=== PATIENT | male | born 1950 | race Caucasian/White ===

== ENCOUNTER 2020-12-08 08:43 | Outpatient (CLI) | payer MEDICARE, OTHER, SELFPAY | END 2020-12-08 08:44 | disposition home or self-care (01) | LOC: ANHCOVIDVC 08:43 | PROVIDERS: PCP Internal Medicine | DX: Z23 Encounter for immunization (principal) | CPT/HCPCS: 0001A; 91300 ==

== ENCOUNTER 2020-12-29 08:40 | Outpatient (CLI) | payer MEDICARE, OTHER, SELFPAY | END 2020-12-29 08:41 | disposition home or self-care (01) | LOC: ANHCOVIDVC 08:40 | PROVIDERS: PCP Internal Medicine | DX: Z23 Encounter for immunization (principal) | CPT/HCPCS: 0002A; 91300 ==

== ENCOUNTER 2021-05-14 13:12 | Outpatient (CLI) | payer MEDICARE, OTHER, SELFPAY ==
--- NOTE | ~2021-05-14 | CT_ITS ---
EXAMINATION: CT soft tissue neck w con EXAM DATE: 05/14/2021 14:00 INDICATION: K11.20 - Sialoadenitis, unspecified. TECHNIQUE: Spiral CT of the neck was performed following intravenous injection of 75 mL Omnipaque 350 . Axial, coronal and sagittal images were reviewed. The dose-length product (DLP) for this examinat ion was 566.91 mGy-cm. The exposure was tailored according to patient size (auto mA exposure control ), and iterative reconstruction (ASIR) was used as additional dose reduction technique. There is no prior study for comparison. FINDINGS: Ill-defined infiltrative appearing left parotid mass measuring about 3 x 4 cm expanding the size of the left parotid superficial lobe. There are regions of cavitation or pathological intraparo tid lymph nodes as well. 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 Mass does extend t o the skull base, can't exclude perineural spread along the facial nerve. There are pathologically enlarged left-sided level 2 and 3 lymph nodes which are centrally necrotic, largest measuring 3.0 x 1.7 cm. There is left submandibular pathological lymph node measuring 1.8 x 1 .3 cm. There is left internal jugular chain lymph node at level of thyroid cartilage measuring 1.1 x 1.4 cm. The thyroid gland is unremarkable. The superior mediastinum is unremarkable. The airway is unrem arkable. Parapharyngeal and pre-glottic fat planes are preserved. There is moderate bilateral car otid bulb arterial sclerosis without stenosis. Patient has had left-sided ocular lens surgery. Vi sualized sinuses and mastoid air cells are well aerated. Lung apices are clear. There is cervical spondylosis. IMPRESSION: Left parotid infiltrating mass and associated internal jugular chain, submandibular meta static lymphadenopathy. Consider MR internal auditory canal without and with contrast to evaluate po ssibility of perineural spread. I left a message for Dr. Alex Law MD at 05/15/2021 11:03 CDT, spoke with Amaris in his office, no tified of findings and requested for him to review this report and images. Reviewed, dictated and finalized at location B. IMPRESSION: Left parotid infiltrating mass and associated internal jugular toña in, submandibular metastatic lymphadenopathy. Consider MR internal auditory ca nal without and with contrast to evaluate possibility of perineural spread. I left a message for Dr. Alex Law MD at 05/15/2021 11:03 CDT, spoke with Elvin vines in his office, notified of findings and requested for him to review this r eport and images.
[2021-05-14 13:49] LABS: Estimated Glomerular Filt Rate > 60
== END 2021-05-14 13:13 | disposition home or self-care (01) ==
PROVIDERS: PCP Internal Medicine; Visit Provider Otolaryngology
DX: R22.1 Localized swelling, mass and lump, neck (principal); K11.20 Sialoadenitis, unspecified
CPT/HCPCS: 70491; Q9967

== ENCOUNTER 2021-06-03 08:24 | Outpatient (CLI) | payer MEDICARE, OTHER, SELFPAY ==
--- NOTE | ~2021-06-03 | US_ITS ---
EXAMINATION: US FNA w image guidance DATE: 06/03/2021 09:38 INDICATION: Left parotid mass. TECHNIQUE: The procedure and its benefits and risks were discussed with the patient. Risks specifically discusse d included bleeding. The patient verbalized understanding of the risks and agreed to proceed. The nec k was prepped and draped in the usual sterile manner. 1% lidocaine was used for local anesthesia. 8 passes were made with a 25G needle into the lesion under ultrasound guidance. There were no immedia te complications. FINDINGS: Grayscale ultrasound images demonstrate needles advanced into an ill-defined mass in left parotid gla nd for biopsy. IMPRESSION: 1. Ultrasound-guided fine needle aspiration of an ill-defined mass in left parotid gland. Reviewed, dictated and finalized at location A. IMPRESSION: 1. Ultrasound-guided fine needle aspiration of an ill-defined mass in left par otid gland.
== END 2021-06-03 08:25 | disposition home or self-care (01) ==
LOC: ANHIMG 08:28
PROVIDERS: PCP Internal Medicine; Visit Provider Otolaryngology
DX: R22.1 Localized swelling, mass and lump, neck (principal)
CPT/HCPCS: 10005; 88173; 88305

== ENCOUNTER 2021-09-22 08:10 | Outpatient (CLI) | payer MEDICARE, OTHER, SELFPAY ==
[2021-09-22 08:37] LABS: Basophils Percent Auto 0.7 % (0.2-1.2); Eosinophils Absolute Auto 0.2 K/mm3 (0-0.3); Hematocrit 47.4 % (42.0-52.0); Hemoglobin 14.5 g/dL (14.0-18.0); Immature Granulocyte Absolute 0.07 K/mm3 (0.00-0.031); Immature Granulocyte Percent A 1.2 % (0-0.5); Lymphocytes Percent Auto 36.2 % (18.3-44.2); Mean Corpuscular HGB Conc 30.6 g/dl (32-36); Mean Corpuscular Hemoglobin 27.6 pg (26-34); Mean Corpuscular Volume 90.3 fl (80-100); Mean Platelet Volume 10.6 fl (7.4-10.4); Monocytes Absolute Auto 0.5 K/mm3 (0.1-0.6); Monocytes Percent Auto 8.6 % (2.6-8.5); Neutrophils Absolute Auto 3.1 K/mm3 (1.3-6.7); Neutrophils Percent Auto 50.3 % (45.5-73.1); Platelet Count Result 177 k/mm3 (150-375); Red Blood Count 5.25 M/mm3 (4.6-6.20); Red Cell Distribution Width 15.5 % (11.5-14.5); White Blood Count 6.1 K/mm3 (4.5-10.0)
[2021-09-22 08:43] LABS: Blood Urea Nitrogen 21 mg/dL (8-26); Carbon Dioxide 25 mmol/L (22-30); Chloride 105 mmol/L (98-109); Estimated Glomerular Filt Rate > 60; Glucose 171 mg/dL (70-105); Potassium 4.6 mmol/L (3.5-4.9); Sodium 143 mmol/L (138-146)
[2021-09-22 09:59] LABS: Alanine Aminotransferase 34 U/L (4-50); Albumin Level 4.3 g/dL (3.5-5.1); Alkaline Phosphatase 81 U/L (38-126); Anion Gap 11 mmol/L (8-16); Aspartate Amino Transferase 60 U/L (17-59); Bilirubin,Total 0.8 mg/dL (0.2-1.3); Blood Urea Nitrogen 20 mg/dL (9-20); Calcium 8.9 mg/dL (8.4-10.2); Carbon Dioxide 24 mmol/L (22-30); Chloride 106 mmol/L (98-107); Estimated Glomerular Filt Rate > 60; Glucose 176 mg/dL (65-110); Potassium 4.7 mmol/L (3.4-5.0); Sodium 141 mmol/L (137-145)
== END 2021-09-22 08:11 | disposition home or self-care (01) ==
PROVIDERS: PCP Internal Medicine; Visit Provider Internal Medicine Hematology & Oncology
DX: D68.69 Other thrombophilia (principal)
CPT/HCPCS: 36415; 80053; 85025

== ENCOUNTER 2022-03-23 10:53 | Outpatient (CLI) | payer MEDICARE, OTHER, SELFPAY ==
[2022-03-23 11:06] LABS: Basophils Absolute Auto 0.1 K/mm3 (0.0-0.1); Eosinophils Absolute Auto 0.2 K/mm3 (0-0.3); Eosinophils Percent Auto 2.4 % (0-4.4); Hematocrit 47.6 % (42.0-52.0); Hemoglobin 15.1 g/dL (14.0-18.0); Immature Granulocyte Absolute 0.11 K/mm3 (0.00-0.031); Immature Granulocyte Percent A 1.5 % (0-0.5); Lymphocytes Absolute Auto 3.16 K/mm3 (0.9-3.2); Lymphocytes Percent Auto 44.2 % (18.3-44.2); Mean Corpuscular HGB Conc 31.7 g/dl (32-36); Mean Corpuscular Hemoglobin 27.2 pg (26-34); Mean Corpuscular Volume 85.6 fl (80-100); Mean Platelet Volume 10.3 fl (7.4-10.4); Monocytes Absolute Auto 0.6 K/mm3 (0.1-0.6); Monocytes Percent Auto 8.1 % (2.6-8.5); Neutrophils Absolute Auto 3.1 K/mm3 (1.3-6.7); Neutrophils Percent Auto 42.8 % (45.5-73.1); Platelet Count Result 195 k/mm3 (150-375); Red Blood Count 5.56 M/mm3 (4.6-6.20); Red Cell Distribution Width 15.9 % (11.5-14.5); White Blood Count 7.2 K/mm3 (4.5-10.0)
[2022-03-23 11:10] LABS: Blood Urea Nitrogen 20 mg/dL (8-26); Carbon Dioxide 24 mmol/L (22-30); Chloride 102 mmol/L (98-109); Estimated Glomerular Filt Rate > 60; Glucose 229 mg/dL (70-105); Ionized Calcium (POC) 1.15 mmol/L (1.11-1.31); Potassium 4.8 mmol/L (3.5-4.9); Sodium 138 mmol/L (138-146)
[2022-03-23 14:36] LABS: Alanine Aminotransferase 35 U/L (6-50); Albumin Level 4.4 g/dL (3.5-5.1); Alkaline Phosphatase 101 U/L (38-126); Anion Gap 13 mmol/L (8-16); Aspartate Amino Transferase 56 U/L (17-59); Bilirubin,Total 1.2 mg/dL (0.2-1.3); Blood Urea Nitrogen 20 mg/dL (9-20); Calcium 8.9 mg/dL (8.4-10.2); Carbon Dioxide 25 mmol/L (22-30); Chloride 100 mmol/L (98-107); Estimated Glomerular Filt Rate > 60; Glucose 232 mg/dL (65-110); Potassium 4.9 mmol/L (3.4-5.0); Sodium 138 mmol/L (137-145)
== END 2022-03-23 10:54 | disposition home or self-care (01) ==
LOC: ANHLAB 10:55
PROVIDERS: PCP Internal Medicine; Visit Provider Internal Medicine Hematology & Oncology
DX: D68.69 Other thrombophilia (principal)
CPT/HCPCS: 36415; 80047; 80053; 85025

== ENCOUNTER 2022-03-29 06:41 | Outpatient (CLI) | payer MEDICARE, OTHER, SELFPAY ==
--- NOTE | ~2022-03-29 | CT_ITS ---
EXAMINATION: CT chest abdomen pelvis w con DATE: 03/29/2022 07:10 INDICATION: Abnormal weight loss TECHNIQUE: Computed tomography (CT) of the chest and abdomen and pelvis was performed with 100 CC Omn ipaque 350 intravenous contrast. Automated exposure control and iterative reconstruction technique we re employed. Exam dose: 1302.07 mGy-cm total exam DLP. COMPARISON: 03/05/2019 MRI MRCP 03/02/2019 right upper quadrant abdominal ultrasound examination 03/02/2019 CT abdomen pelvis 12/15/2018 CT pulmonary scan FINDINGS: CHEST CT: Mild emphysematous changes of the lungs. No pulmonary mass lesion or consolidation. Normal heart size. Prominent coronary artery calcifications. No pericardial or pleural effusion. There is aortic and great vessel calcification. No thoracic aortic aneurysm or dissection. No hilar or mediastinal mass lesion or lymphadenopathy. ABDOMEN CT: The gallbladder is distended. No gallbladder wall thickening or pericholecystic fluid or fat strandin g. No bile duct dilatation. There is pancreatic atrophy and chronic pancreatic duct prominence. No pancreatic mass lesion or calc ification is noted. Borderline splenomegaly. Normal morphology of the adrenal glands. Exophytic upper pole circumscribed left renal mass currently measures up to approximately 5 cm compar ed to 4.2 cm on 03/02/2019. This has attenuation of 48 Hounsfield units and is considered indeterminate . Solid neoplasm is not excluded. There is a smaller but similar higher density (78 Hounsfield units) exophytic mass at the upper pole the right kidney, increased in size from 17 mm on 03/02/2019 to 21 mm currently. Bilateral MR renal examination is recommended. There are numerous cysts of both kidneys. No urinary tract calculus or hydroureteronephrosis. The urinary bladder is unremarkable. Again noted is aortobiiliac endograft. No intraperitoneal or retroperitoneal or pelvic lymphadenopathy or mass lesion is noted otherwise. Normal appendix. Numerous diverticula of the colon; no CT evidence of diverticulitis. No bowel obstru ction or intraperitoneal free air. Bilateral fat-containing hernias, larger on the left. Prominent degenerative changes apophyseal joints of the lumbar spine with associated grade 1 anteroli sthesis at L4-5 and L5-S1. There is degenerative disc disease throughout the lumbar spine, particular ly at L2-3 with mild retrolisthesis, as well as L3-4, L4-5 and L5-S1. No suspicious osteolytic or osteoblastic lesions are noted. IMPRESSION: Bilateral indeterminate renal masses, mildly increased in size since 03/02/2019. Consider bilateral renal MRI examination Mild emphysema Prominent coronary atherosclerosis Borderline splenomegaly Numerous bilateral renal cysts Reticulosis of the colon; no evidence of diverticulitis or bowel obstruction Reviewed, dictated and finalized at Location A. Reviewed, dictated and finalized at location B. IMPRESSION: Bilateral indeterminate renal masses, mildly increased in size sin ce 03/02/2019. Consider bilateral renal MRI examination Mild emphysema Prominent coronary atherosclerosis Borderline splenomegaly Numerous bilateral renal cysts Reticulosis of the colon; no evidence of diverticulitis or bowel obstruction
== END 2022-03-29 06:42 | disposition home or self-care (01) ==
PROVIDERS: PCP Internal Medicine; Visit Provider Internal Medicine Hematology & Oncology
DX: R63.4 Abnormal weight loss (principal); N28.89 Other specified disorders of kidney and ureter; J43.9 Emphysema, unspecified; I25.10 Atherosclerotic heart disease of native coronary artery without angina pectoris; R16.1 Splenomegaly, not elsewhere classified; N28.1 Cyst of kidney, acquired
CPT/HCPCS: 71260; 74177; Q9967

== ENCOUNTER 2022-04-26 08:36 | Outpatient (CLI) | payer MEDICARE, OTHER, SELFPAY ==
--- NOTE | ~2022-04-26 | MR_ITS ---
EXAMINATION: MR abdomen wo/w con DATE: 04/26/2022 09:58 INDICATION: Bilateral kidney masses. TECHNIQUE: Magnetic resonance imaging (MRI) of the abdomen was performed without and with 19 mL Multi Kelly intravenous contrast. COMPARISON: CT abdomen and pelvis 01/27/2022, MRCP 03/05/19 FINDINGS: The liver, gallbladder, and spleen are normal. There is chronic dilatation of pancreatic duct and the pancreatic duct sidechains, consistent with chronic pancreatitis. The main pancreatic duct measures 6 mm in the head of the pancreas. The adrenal glands are normal. There are cysts and hemorrhagic cyst s in the kidneys measuring up to 5.4 cm on the left. There is a stent graft in abdominal aorta and th e common iliac arteries. There are no dilated loops of bowel. There are no pathologically enlarged ly mph nodes. There is no free intraperitoneal fluid. IMPRESSION: 1. Benign cysts in the kidneys. 2. Chronic pancreatitis. Reviewed, dictated and finalized at location A.
== END 2022-04-26 08:37 | disposition home or self-care (01) ==
PROVIDERS: PCP Internal Medicine; Visit Provider Internal Medicine Hematology & Oncology
DX: N28.1 Cyst of kidney, acquired (principal); K86.2 Cyst of pancreas
CPT/HCPCS: 74183; A9577

== ENCOUNTER 2022-08-20 09:31 | Inpatient (IN) | payer MEDICARE, OTHER, SELFPAY ==
[2022-08-20] VITALS (49 sets, daily range): BP systolic 78–125; BP diastolic 54–99; PULSE 95–156; RESP 11–25; TEMP 36.4–36.8; O2SAT 93–100; BMI 25.1
--- NOTE | ~2022-08-20 | XR_ITS ---
Left ankle Technique: AP, oblique, and lateral views were obtained. Clinical History: Wound, pain Findings: No acute fracture or dislocation is seen. Osseous alignment is anatomic. Probable minimal d egenerative change at the tibiotalar joint. Alignment at the ankle mortise is unremarkable. Soft tis sues are otherwise unremarkable. Impression: Minimal degenerative change of the tibiotalar joint. Reviewed, dictated and finalized at location . ASTRUCTURE ADMINISTRATOR Impression: Minimal degenerative change of the tibiotalar joint.
--- NOTE | ~2022-08-20 | XR_ITS ---
Lumbosacral Spine: AP and lateral views Clinical History: Pain Findings: No fracture identified. 8 mm anterolisthesis of L5 over S1 noted. 4 mm anterolisthesis of L 4 over L5 present. There are facet joint degenerative changes throughout the lumbar spine, worst at L 4-L5 and L5-S1. The sacroiliac joints are normally outlined. Aortic stent graft noted. Impression: 8 mm anterolisthesis of L5 over S1. 4 mm anterolisthesis of L4 over L5. Additional degenerative changes, as above. Reviewed, dictated and finalized at location M. LITIES SPECIALIST Impression: 8 mm anterolisthesis of L5 over S1. 4 mm anterolisthesis of L4 over L5. Additional degenerative changes, as above.
--- NOTE | ~2022-08-20 | US_ITS ---
EXAMINATION: US venous doppler UE DATE: 08/24/2022 13:26 INDICATION: Left upper extremity redness and swelling TECHNIQUE: Grayscale ultrasound images without and with compression and Doppler ultrasound images of the left upper extremity veins were obtained. COMPARISON: None. FINDINGS: There is thrombosis of the left cephalic vein. The left internal jugular vein, subclavian vein, axill eric vein, brachial veins, basilic vein, radial vein, and ulnar vein are patent. IMPRESSION: 1. Left cephalic vein thrombosis. These findings were discussed with RKIS Pinto in the ICU at 1330 h ours on 08/24/2022 . Reviewed, dictated and finalized at location L. MOLD MACHINE OPERATOR IMPRESSION: 1. Left cephalic vein thrombosis. These findings were discussed with Soni Pinto in the ICU at 1330 hours on 08/24/2022 .
--- NOTE | ~2022-08-20 | US_ITS ---
EXAMINATION: US venous doppler [facility] DATE: 08/20/2022 12:40 INDICATION: Left lower limb pain, swelling and erythema TECHNIQUE: Grayscale ultrasound images without and with compression and Doppler ultrasound images of the left lower extremity veins were obtained. COMPARISON: None. FINDINGS: Increase in the amount of noncompressible hypoechoic thrombus in the left popliteus vein which is ecc entric with smooth relatively echogenic margins or thrombus suggesting this represents residual chron ic thrombus. The previously thrombosed paired left posterior tibial and peroneal veins are now patent The visualized portions of left common femoral vein, profunda (deep) femoral vein, femoral vein and greater saphenous vein outflow remain patent. IMPRESSION: 1. Small amount of residual likely chronic deep venous thrombosis in the left posterior tibial vein with resolution of prior thrombus in the left posterior tibial and peroneal veins. Reviewed, dictated and finalized at location A. TRICIAN TECHNICIAN IMPRESSION: 1. Small amount of residual likely chronic deep venous thrombosis in the left posterior tibial vein with resolution of prior thrombus in the left posterior t ibial and peroneal veins.
--- NOTE | ~2022-08-20 | CT_ITS ---
EXAMINATION: CT LE LT w con DATE: 08/20/2022 12:19 INDICATION: Trauma from fall. Diabetic foot with ulcerations and erythema, warmth and swelling. TECHNIQUE: Computed tomography (CT) of the left lower leg, ankle and foot was performed with 100 mL O mnipaque-350 intravenous contrast. Automated exposure control and iterative reconstruction technique were employed. The dose-length product was 1048.31 mGy-cm. COMPARISON: Left ankle radiographs dated 08/20/2022 FINDINGS: Alignment is normal. No fracture. Small heterotopic ossicles at the medial malleolus along the deep a nd superficial deltoid ligament likely sequela of chronic sprain. Polyarticular osteoarthritis throug hout the left foot and ankle, mild to moderate at the tarsal metatarsal and first metatarsophalangeal joints and otherwise mild. No cortical erosions, osteolysis or periosteal reaction to suggest osteom yelitis. Small Achilles and plantar calcaneal spurs. There are vascular calcifications throughout the arteries of the left lower leg and foot without hemodynamically significant stenosis. Three-vessel r unoff into the left foot. No joint effusions. Asymmetric mild skin thickening and diffuse subcutaneou s edema throughout the left calf and extending into the left foot consistent with cellulitis. Shallow ulceration at the distal lower leg along the cephalad margin of the medial malleolus. No abscess or soft tissue gas. Mild diffuse fatty atrophy of the musculature of the left foot and lower leg. Relati vely symmetric pattern of soft tissue density replacing the fat attenuation at the bilateral heel fat pads without evident overlying skin ulcerations suggesting fibrosis. 11 mm homogeneous fat attenuati on lipoma within the intrinsic musculature of the lateral aspect of the left forefoot. IMPRESSION: 1. No fracture or other acute osseous abnormality at the left lower leg, foot or ankle. 2. Findings suggestive of diffuse cellulitis throughout the left lower leg and foot and ankle with sh allow skin ulceration cephalad to the medial malleolus without underlying soft tissue gas, abscess or osteomyelitis. 3. 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 Reviewed, dictated and finalized at location A. RAFT ENGINE CYLINDER MECHANIC IMPRESSION: 1. No fracture or other acute osseous abnormality at the left lower leg, foot o r ankle. 2. Findings suggestive of diffuse cellulitis throughout the left lower leg and foot and ankle with shallow skin ulceration cephalad to the medial malleolus wi thout underlying soft tissue gas, abscess or osteomyelitis. 3. Mild to moderate polyarticular osteoarthritis throughout the left foot and a nkle.
--- NOTE | ~2022-08-20 | XR_ITS ---
Clinical Indication: Weakness, status post fall AP and lateral views of the chest: Comparison: 11/08/2018 Findings: The lungs are clear, without evidence of focal consolidation or pleural effusion. Cardiome diastinal silhouette is within normal limits. Bones and soft tissues are unremarkable. Impression: Normal chest. Reviewed, dictated and finalized at [facility]. ENTER Impression: Normal chest.
--- NOTE | 2022-08-20 09:53 | ECG_ITS ---
Measurements Intervals [place] Rate: 151 P: [place]: 0 QRS: 31 QRSD: 92 T: 96 QT: 301 QTc: 477 Interpretive Statements ATRIAL FIBRILLATION WITH RAPID VENTRICULAR RESPONSE NONSPECIFIC ST & T-WAVE ABNORMALITY ABNORMAL ECG COMPARED TO ECG 03/02/2019 09:34:03 ATRIAL FIBRILLATION REPLACES ATRIAL FLUTTER Electronically Signed On 08-20-2022 19:59:53 TUTORIAL LABORATORY SUPERVISOR by Pepe Yan M.D.
[2022-08-20 10:00] LABS: Glucose Point of Care > 500 mg/dl (65-105)
--- NOTE | 2022-08-20 10:10 | ED.EXTPRO ---
HPI - Extremity Problem General Chief complaint: Extremity Problem,Nontraumatic <Tresa Ku PA-C - Last Filed: 08/20/22 15:05> Stated complaint: left foot problem <CHINA Nina Last Filed: 08/20/22 15:05> Time Seen by Provider: 08/20/22 09:53 <Tresa Ku PA-C - Last Filed: 08/20/22 15:05> Source: patient <CHINA Nina Last Filed: 08/20/22 15:05> Mode of arrival: ambulatory <CHINA Nina Last Filed: 08/20/22 15:05> Limitations: no limitations <CHINA Nina Last Filed: 08/20/22 15:05> History of Present Illness HPI Narrative: This is a 72 year old male that presents to the ER left ankle wound. Ongoing over the last month. Reports he went to see a dinkey skinner today for it and was sent to the ER. He has not received any care yet for his wound. He also reports he had a fall last night. Reports he felt like his leg gave out causing him to fall onto his bottom. He does not report hitting his head or losing consciousness. Reports he is having some mild low back pain since the fall. Reports the wound on his leg has become more painful and has started weeping. She denies fever, chest pain, shortness of breath, palpitations, numbness, or weakness. <CHINA Nina Last Filed: 08/20/22 15:05> Related Data Home medications: Home Medications Medication Instructions Recorded Confirmed apixaban 5 mg tablet (Eliquis) 5 mg PO BID 05/11/21 08/20/22 aspirin 81 mg tablet,delayed 81 mg PO DAILY 05/11/21 08/20/22 release (Adult Low Dose Aspirin) glimepiride 4 mg tablet 4 mg PO QAM AND QHS 05/11/21 08/20/22 icosapent ethyl 1 gram capsule 4 g PO DAILY 05/11/21 08/20/22 (Vascepa) insulin glargine U-300 conc 300 130 unit subcut DAILY 05/11/21 08/20/22 unit/mL (3 mL) subcutaneous pen (Toujeo Max U-300 SoloStar) metformin 500 mg tablet 500 mg PO DAILY 05/11/21 08/20/22 montelukast 10 mg tablet 10 mg PO DAILY 05/11/21 08/20/22 pravastatin 40 mg tablet 40 mg PO DAILY 05/11/21 08/20/22 pregabalin 75 mg capsule 150 mg PO DAILY 05/11/21 08/20/22 sitagliptin phosphate 50 2 tablet PO BID 05/11/21 08/20/22 mg-metformin 1,000 mg tablet (Janumet) Novolog U-100 Insulin aspart 50 units subcut DAILY 08/20/22 08/20/22 <Tresa Ku PA-C - Last Filed: 08/20/22 15:05> Allergies/Adverse reactions: Allergies Allergy/AdvReac Type Severity Reaction Status Date / Time No Known Allergies Allergy Verified 06/10/21 08:13 <Tresa Ku PA-C - Last Filed: 08/20/22 15:05> Review of Systems Review of Systems: CONSTITUTIONAL: Denies fever CARDIOVASCULAR: Reports edema.Denies chest pain, palpitations RESPIRATORY: Denies dyspnea. SKIN: Reports erythema and warmth MUSCULOSKELETAL: Reports back pain, joint pain, and myalgia. NEUROLOGIC: Denies numbness, or weakness. 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 <Tresa Ku PA-C - Last Filed: 08/20/22 15:05> Family History Family History: Family History Father Cancer Hypertension Heart disease Mother Cancer Diabetes mellitus Hypertensio
[2022-08-20] MEDS: SODIUM CHLORIDE 0.9% IV 1,000 ML 999 ML IV CONT ×2 (10:12→13:34)
[2022-08-20 10:26] LABS: Basophils Absolute Auto 0.1 K/mm3 (0.0-0.1); Basophils Percent Auto 0.4 % (0.2-1.2); Eosinophils Percent Auto 0.1 % (0-4.4); Hematocrit 44.5 % (42.0-52.0); Hemoglobin 13.9 g/dL (14.0-18.0); Immature Granulocyte Absolute 0.18 K/mm3 (0.00-0.031); Immature Granulocyte Percent A 1.4 % (0-0.5); Lymphocytes Absolute Auto 1.08 K/mm3 (0.9-3.2); Lymphocytes Percent Auto 8.2 % (18.3-44.2); Mean Corpuscular HGB Conc 31.2 g/dl (32-36); Mean Corpuscular Hemoglobin 24.9 pg (26-34); Mean Corpuscular Volume 79.7 fl (80-100); Monocytes Absolute Auto 1.2 K/mm3 (0.1-0.6); Monocytes Percent Auto 8.8 % (2.6-8.5); Neutrophils Absolute Auto 10.7 K/mm3 (1.3-6.7); Neutrophils Percent Auto 81.1 % (45.5-73.1); Platelet Count Result 298 k/mm3 (150-375); Red Blood Count 5.58 M/mm3 (4.6-6.20); Red Cell Distribution Width 16.6 % (11.5-14.5); White Blood Count 13.2 K/mm3 (4.5-10.0)
[2022-08-20] MEDS: METOPROLOL TARTRATE 50 MG TAB 100 MG PO (10:33)
[2022-08-20] MEDS: METOPROLOL TARTRATE INJ 5 MG/5 ML VIAL IV PUSH ×2 (10:34→19:00)
[2022-08-20 10:37] LABS: INR 1.3; Prothrombin Time 15.2 Seconds (11.1-14.7)
[2022-08-20 10:38] LABS: Partial Thromboplastin Time 34.2 SECONDS (22.3-36.8)
[2022-08-20 10:47] LABS: Lactic Acid Reflex 1.9 mmol/L (0.7-2.0)
[2022-08-20 10:55] LABS: Alanine Aminotransferase 14 U/L (6-50); Albumin Level 3.5 g/dL (3.5-5.1); Alkaline Phosphatase 119 U/L (38-126); Anion Gap 21 mmol/L (8-16); Aspartate Amino Transferase 29 U/L (17-59); Bilirubin,Total 1.6 mg/dL (0.2-1.3); Blood Urea Nitrogen 36 mg/dL (9-20); Calcium 8.3 mg/dL (8.4-10.2); Carbon Dioxide 20 mmol/L (22-30); Chloride 89 mmol/L (98-107); Estimated CRCL calculation 82 ml/min; Estimated Glomerular Filt Rate > 60; Glucose 606 mg/dL (65-110); Phosphorus 4.2 mg/dL (2.5-4.5); Potassium 4.7 mmol/L (3.4-5.0); Sodium 130 mmol/L (137-145)
[2022-08-20 11:09] LABS: CRP 22.7 mg/dL (<1.0)
[2022-08-20 11:09] LABS: Influenza A QL RT-PCR Negative (Negative); Influenza B QL RT-PCR Negative (Negative); SARS-CoV-2 RNA PCR Positive
[2022-08-20 11:24] LABS: Erythrocyte Sedimentation Rate 15 mm/hr (0-20)
[2022-08-20 11:35] LABS: Beta-Hydroxybutyrate/Acetoacetate 8.41 mmol/L (0.02-0.27)
[2022-08-20] MEDS: INSULIN HUMAN REGULAR (*BKC) 100 UNITS/ML 8 UNITS IV PUSH (11:59)
[2022-08-20 13:17] LABS: Add Urine Microscopic? YES; Appearance Urine Clear (Clear); Bilirubin Urine 1+ (Negative); Blood Urine Negative (Negative); Color Urine Light Yellow (Yellow); Glucose Urine UA 3+ mg/dL (Negative); Ketones Urine 1+ mg/dL (Negative); Leukocyte Esterase Ur Negative LEU/UL (Negative); Nitrate Urine Negative (Negative); Protein Urine Negative (Negative); Urobilinogen Urine 0.2 mg/dL (<2.0); pH Urine 5.5 (5.0-9.0)
[2022-08-20 13:28] LABS: Bacteria Urine Trace /hpf; Mucus Urine Rare /lpf; RBC Urine 0-2 /hpf (0-2); WBC Urine 0-3 /hpf
--- NOTE | 2022-08-20 13:34 | PC.NURSE ---
drained mcgovern bag at 1400 ml
[2022-08-20 13:42] LABS: Glucose Point of Care 368 mg/dl (65-105)
[2022-08-20 13:42] LABS: Glucose Point of Care 364 mg/dl (65-105)
[2022-08-20] MEDS: SODIUM CHLORIDE 0.9% IV 500 ML 999 ML IV CONT ×2 (14:15→15:43)
[2022-08-20] MEDS: metroNIDAZOLE 500 MG/ISO 100ML 500 MG/100 ML BAG 100 MG IVPB ×2 (14:15→23:50)
[2022-08-20 14:27] LABS: Alveolar/Arterial O2 Gradient 28.9 mmHg; Base Excess ABG -1.2 mEq/l (+/-2.0); Carboxyhemoglobin 0.6 % THb (0-2.0); Fractional Inspired Oxygen 21 %; Methemoglobin ABG 0.1 %THb (0-1.5); Oxygen Content ABG 16.5 %vol (16.0-22.0); Oxygen Saturation ABG 93.9 % (95.0-100.0); Oxyhemoglobin 92.1 % THb (90.0-100.0); PCO2 ABG 41.9 mmHg (35.0-45.0); PO2 ABG 70.7 mmHg (80.0-100.0); PO2 FiO2 Ratio Arterial Blood 3.37 %; Reduced Hemoglobin 7.2 %THb (0-5.0); Site Drawn LEFT BRACHIAL; Total Hemoglobin 12.7 g/dL (12.0-18.0); pH ABG 7.376 (7.350-7.450)
[2022-08-20 15:21] LABS: Anion Gap 9 mmol/L (8-16); Blood Urea Nitrogen 34 mg/dL (9-20); Calcium 7.8 mg/dL (8.4-10.2); Carbon Dioxide 28 mmol/L (22-30); Chloride 95 mmol/L (98-107); Estimated CRCL calculation 82 ml/min; Estimated Glomerular Filt Rate > 60; Glucose 328 mg/dL (65-110); Potassium 3.7 mmol/L (3.4-5.0); Sodium 132 mmol/L (137-145)
[2022-08-20] MEDS: INSULIN HUMAN REGULAR (*BKC) 100 UNITS in SODIUM CHLORIDE 0.9% IV 99 ML 6.2 UNITS IV CONT (15:25)
--- NOTE | 2022-08-20 15:30 | PM.IMHP ---
H&P: HPI History of Present Illness Date/Time: 08/20/22 15:30 Chief Complaint: Left foot pain. Narrative: This is a 72-year-old male with multiple medical problems including history of DVT, insulin-dependent type 2 diabetes mellitus, hypertension, hyperlipidemia, and paroxysmal atrial fibrillation on chronic anticoagulation who presented to the ED for evaluation of left foot pain. He has had a wound on the left medial ankle for quite some time though it has gotten worse ?recently? and he went and saw a mine foreman today at which time he was immediately sent to the ER for evaluation. He does not really recall how he got the wound. He was a bit hypotensive and tachycardic on arrival to the ED with a normal temperature. EKG showed atrial fibrillation with rapid ventricular response for which he was given an IV bolus of Lopressor with initial improvement however he has since been started on amiodarone drip. He tested positive for COVID though he is quite asymptomatic aside from a mild runny nose which he goes on to say is pretty chronic for him. Labs were significant for a WBC of 13.2, random glucose 328, beta hydroxybutyrate 8.41, and an anion gap of 21. UA was positive for 3+ glucose and 1+ ketones. CT of the left leg showed no fracture but did note findings suggestive of diffuse cellulitis without underlying soft tissue gas, abscess, or osteomyelitis. He is being admitted in this setting for IV antibiotics due to a diabetic foot wound in addition to DKA. At the time my evaluation he has no specific complaints and is feeling okay. Review of Systems Review of Systems: Twelve systems were reviewed. He denies fever, chills, and sweats. He endorses a mild runny nose. No sinus congestion or sore throat. He denies cough. Appetite has been okay. No nausea, vomiting, or diarrhea. No dysuria. He was apprised that his glucose was over 300. He is always thirsty and that is unchanged. Denies blurry vision. Except as documented, all other systems were reviewed and are negative. 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 Family History Family History Father Cancer Hypertension Heart disease Mother Cancer Diabetes mellitus Hypertension Heart disease Sibling Cancer Hypertension Heart disease Other Asthma Carcinoma of colon Cerebrovascular accident Depression Family history of arthritis Family history of cardiovascular disease Family history of chronic obstructive pulmonary disease Family history of malignant neoplasm Family history of malignant neoplasm of breast in first degree relative Family history of mental disorder Malignant neoplasm of prostate Social History Social History (Updated 08/20/22 @ 22:33 by Bushra Gomez PA-C) Social History: Surrogate medical decision maker: Rocio Peña, daughter. Code status: Full code. Smoking status: Former smoker Tobacco type: cigarettes Second hand tobacco smoke exposure: No Alcohol intake: never Substance use: never Substance use type: does not use Lack of Transportation: No Lack of Food: Never True Current Housing: I Have Housing Concerned About Future Housing: No Difficulty Paying Gas/Electric Bills: No Difficulty Paying for Meds: No Currently Unemployed: No Education: High School Diploma/GED Difficulty w/ Childcare or Family Care: No Spiritual care concerns: No Meds Home Me
[2022-08-20 15:41] LABS: Glucose Point of Care 374 mg/dl (65-105)
[2022-08-20 16:20] LABS: Glucose Point of Care 329 mg/dl (65-105)
[2022-08-20 17:15] LABS: Glucose Point of Care 310 mg/dl (65-105)
[2022-08-20] MEDS: KCL 20MEQ/0.9% SOD CHL 1,000 ML 100 ML IV CONT (18:22)
[2022-08-20 18:31] LABS: Glucose Point of Care 303 mg/dl (65-105)
[2022-08-20 19:10] LABS: Anion Gap 12 mmol/L (8-16); Blood Urea Nitrogen 28 mg/dL (9-20); Calcium 7.8 mg/dL (8.4-10.2); Carbon Dioxide 21 mmol/L (22-30); Chloride 97 mmol/L (98-107); Estimated CRCL calculation 126 ml/min; Estimated Glomerular Filt Rate > 60; Glucose 303 mg/dL (65-110); Potassium 3.4 mmol/L (3.4-5.0); Sodium 130 mmol/L (137-145)
--- NOTE | 2022-08-20 19:30 | PC.NURSE ---
5030 This patient, John Warren, was admitted to Intensive Care Unit-3. Patient/family oriented to hospital policies and general routines including ID bracelet, bed and alarms, visiting hours, pain management, procedures, bathroom and other care routines, personal items, smoking policy, room service/diet, and visiting hours. Information on how to activate the Rapid Response Team has been discussed. Patient/Family are encouraged to report perceived risks to care and to ask questions if they do not understand what they are told or what they should do.
--- NOTE | 2022-08-20 20:02 | PHAR ---
DOSE OF LANUTS 100 UNITS HS VERIFIED WITH FANI Tai RN. ICU MD PHONE WAS UNANSWERED WHEN CALLING FOR VERIFICATION.
[2022-08-20] MEDS: AMIODARONE 150 MG/D5W 100 ML 150 MG/100 ML BAG 600 MG IV CONT (20:25)
[2022-08-20] MEDS: INSULIN GLARGINE (*BKC) 100 UNITS/ML SUB-Q (20:25)
[2022-08-20] MEDS: AMIODARONE 360 MG/D5W 200 ML 360 MG/200 ML BAG 33.33 MG IV CONT (20:35)
[2022-08-20 20:44] LABS: Glucose Point of Care 281 mg/dl (65-105)
[2022-08-20 20:44] LABS: Glucose Point of Care 243 mg/dl (65-105)
[2022-08-20 22:45] LABS: Glucose Point of Care 155 mg/dl (65-105)
[2022-08-20 22:45] LABS: Glucose Point of Care 217 mg/dl (65-105)
[2022-08-20 23:51] LABS: Anion Gap 7 mmol/L (8-16); Blood Urea Nitrogen 24 mg/dL (9-20); Calcium 7.8 mg/dL (8.4-10.2); Carbon Dioxide 28 mmol/L (22-30); Chloride 97 mmol/L (98-107); Estimated CRCL calculation 126 ml/min; Estimated Glomerular Filt Rate > 60; Glucose 154 mg/dL (65-110); Potassium 3.8 mmol/L (3.4-5.0); Sodium 132 mmol/L (137-145)
[2022-08-20 23:57] LABS: Glucose Point of Care 144 mg/dl (65-105)
[2022-08-21] VITALS (18 sets, daily range): BP systolic 97–135; BP diastolic 46–89; PULSE 109–152; RESP 20–28; TEMP 36.8–37.6; O2SAT 94–98
[2022-08-21 01:09] LABS: Glucose Point of Care 114 mg/dl (65-105)
[2022-08-21 02:03] LABS: Glucose Point of Care 121 mg/dl (65-105)
[2022-08-21 03:21] LABS: Glucose Point of Care 147 mg/dl (65-105)
[2022-08-21] MEDS: KCL 20MEQ/0.9% SOD CHL 1,000 ML 100 ML IV CONT ×2 (03:35→15:07)
[2022-08-21 04:53] LABS: Basophils Absolute Auto 0.1 K/mm3 (0.0-0.1); Basophils Percent Auto 0.5 % (0.2-1.2); Eosinophils Percent Auto 0.2 % (0-4.4); Hematocrit 41.2 % (42.0-52.0); Immature Granulocyte Absolute 0.14 K/mm3 (0.00-0.031); Immature Granulocyte Percent A 1.2 % (0-0.5); Lymphocytes Absolute Auto 1.29 K/mm3 (0.9-3.2); Lymphocytes Percent Auto 10.7 % (18.3-44.2); Mean Corpuscular HGB Conc 31.6 g/dl (32-36); Mean Corpuscular Hemoglobin 24.9 pg (26-34); Mean Corpuscular Volume 78.9 fl (80-100); Mean Platelet Volume 10.5 fl (7.4-10.4); Monocytes Absolute Auto 1.1 K/mm3 (0.1-0.6); Monocytes Percent Auto 9.5 % (2.6-8.5); Neutrophils Absolute Auto 9.4 K/mm3 (1.3-6.7); Neutrophils Percent Auto 77.9 % (45.5-73.1); Platelet Count Result 193 k/mm3 (150-375); Red Blood Count 5.22 M/mm3 (4.6-6.20); Red Cell Distribution Width 15.6 % (11.5-14.5); White Blood Count 12.1 K/mm3 (4.5-10.0)
[2022-08-21 05:06] LABS: Alanine Aminotransferase 11 U/L (6-50); Albumin Level 2.6 g/dL (3.5-5.1); Alkaline Phosphatase 85 U/L (38-126); Anion Gap 5 mmol/L (8-16); Aspartate Amino Transferase 19 U/L (17-59); Bilirubin,Total 0.7 mg/dL (0.2-1.3); Blood Urea Nitrogen 19 mg/dL (9-20); Calcium 7.5 mg/dL (8.4-10.2); Carbon Dioxide 27 mmol/L (22-30); Chloride 98 mmol/L (98-107); Estimated CRCL calculation 153 ml/min; Estimated Glomerular Filt Rate > 60; Glucose 123 mg/dL (65-110); Magnesium 1.7 mg/dL (1.6-2.3); Potassium 3.1 mmol/L (3.4-5.0); Sodium 130 mmol/L (137-145)
[2022-08-21] MEDS: INSULIN HUMAN REGULAR (*BKC) 100 UNITS in SODIUM CHLORIDE 0.9% IV 99 ML IV CONT (05:18)
[2022-08-21 05:39] LABS: Thyroid Stimulating Hormone Reflex 0.796 uIU/mL (0.465-4.68)
[2022-08-21 06:04] LABS: Glucose Point of Care 132 mg/dl (65-105)
[2022-08-21 06:04] LABS: Glucose Point of Care 104 mg/dl (65-105)
[2022-08-21] MEDS: metroNIDAZOLE 500 MG/ISO 100ML 500 MG/100 ML BAG 100 MG IVPB ×3 (06:06→22:17)
[2022-08-21 07:05] LABS: Glucose Point of Care 108 mg/dl (65-105)
[2022-08-21 07:05] LABS: Glucose Point of Care 98 mg/dl (65-105)
[2022-08-21] MEDS: AMIODARONE 360 MG/D5W 200 ML 360 MG/200 ML BAG 33.33 MG IV CONT ×3 (07:20→18:07)
[2022-08-21] MEDS: MAGNESIUM SULF 2 GM/WATER 50ML 2 GM/50 ML BAG IVPB (08:40)
[2022-08-21] MEDS: PRAVASTATIN SODIUM 20 MG TABLET 40 MG PO (08:42)
[2022-08-21] MEDS: APIXABAN 5 MG TABLET PO ×2 (08:42→18:15)
[2022-08-21] MEDS: OMEGA 3 POLYUNSAT FATTY ACIDS 1 GM CAP 4 GM PO (08:42)
[2022-08-21] MEDS: ASPIRIN 81 MG ENTERIC TABLET PO (08:42)
[2022-08-21] MEDS: MONTELUKAST SODIUM 10 MG TABLET PO (08:42)
[2022-08-21] MEDS: PREGABALIN (*CRX) 75 MG CAPSULE 150 MG PO (08:43)
[2022-08-21] MEDS: POTASSIUM CHLORIDE 20 MEQ TABLET.ER 40 MEQ PO ×2 (09:07→13:37)
[2022-08-21 09:21] LABS: Anion Gap 5 mmol/L (8-16); Blood Urea Nitrogen 15 mg/dL (9-20); Calcium 7.5 mg/dL (8.4-10.2); Carbon Dioxide 28 mmol/L (22-30); Chloride 97 mmol/L (98-107); Estimated CRCL calculation 153 ml/min; Estimated Glomerular Filt Rate > 60; Glucose 97 mg/dL (65-110); Sodium 130 mmol/L (137-145)
--- NOTE | 2022-08-21 09:26 | WPDCNINT ---
Assessment and Plan Assessment and plan (1) Diabetic ketoacidosis: Code(s): E11.10 - Type 2 diabetes mellitus with ketoacidosis without coma Status: Acute Assessment and Plan: Patient presented with uncontrolled blood sugars and met criteria for for DKA Patient was given IV fluid bolus and IV insulin and his anion gap closed but since patient was in sepsis and had uncontrolled diabetes, I requested ED to start him on insulin infusion for tight blood sugar control. Patient currently on IV insulin infusion sugars are improved. His potassium level is low and he is otherwise asymptomatic. I will transition him to subcutaneous insulin including with meal, long-acting and sliding scale and monitor (2) Atrial fibrillation with rapid ventricular response: Code(s): I48.91 - Unspecified atrial fibrillation Status: Acute Assessment and Plan: Patient currently on amiodarone infusion Continue apixaban (3) Sepsis: Code(s): A41.9 - Sepsis, unspecified organism Status: Acute Assessment and Plan: Secondary to cellulitis and diabetic foot ulcer of left foot CT scan MPRESSION: 1. No fracture or other acute osseous abnormality at the left lower leg, foot or ankle. 2. Findings suggestive of diffuse cellulitis throughout the left lower leg and foot and ankle with shallow skin ulceration cephalad to the medial malleolus without underlying soft tissue gas, abscess or osteomyelitis. 3. 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 Consult wound care Empiric vancomycin cefepime and Flagyl Blood cultures have been sent and pending Continue IV fluids He has not required vasopressors until now (4) Diabetic ulcer of left ankle: Code(s): E11.622 - Type 2 diabetes mellitus with other skin ulcer; L97.329 - Non-pressure chronic ulcer of left ankle with unspecified severity Status: Acute Assessment and Plan: See above (5) Hyperlipidemia: Code(s): E78.5 - Hyperlipidemia, unspecified Status: Acute Assessment and Plan: Continue statin (6) Hypertension: Code(s): I10 - Essential (primary) hypertension Status: Acute Assessment and Plan: Blood pressure is in low but acceptable range Hold blood pressure medication (7) Chronic anticoagulation: Code(s): Z79.01 - longterm (current) use of anticoagulants Status: Acute Assessment and Plan: Continue Eliquis (8) COVID-19: Code(s): U07.1 - COVID-19 Status: Acute Assessment and Plan: Patient tested positive for COVID-19 but does not have COVID-19 pneumonia. He is vaccinated against COVID-19. 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 Small amount of residual likely chronic deep venous thrombosis in the left posterior tibial vein with resolution of prior thrombus in the left posterior tibial and peroneal veins. Continue Eliquis (10) Electrolyte abnormality: Code(s): E87.8 - Other disorders of electrolyte and fluid balance, not elsewhere classified Status: Acute Assessment and Plan: Replace low potassium and hold insulin drip Replace low magnesium Pl
[2022-08-21 10:32] LABS: Glucose Point of Care 88 mg/dl (65-105)
[2022-08-21] MEDS: REMDESIVIR 200 MG/NS 250 ML 200 MG/250 ML BAG 250 MG IVPB (11:00)
--- NOTE | 2022-08-21 11:04 | PM.IMPN ---
Progress Note: A&P Assessment and Plan (1) Diabetic ketoacidosis: Code(s): E11.10 - Type 2 diabetes mellitus with ketoacidosis without coma Status: Acute Assessment and Plan: Presented with DKA, now transitioned to subcu insulin, continue to monitor Accu-Cheks, sliding scale insulin (2) Atrial fibrillation with rapid ventricular response: Code(s): I48.91 - Unspecified atrial fibrillation Status: Acute Assessment and Plan: Patient currently on amiodarone infusion Continue apixaban (3) Sepsis: Code(s): A41.9 - Sepsis, unspecified organism Status: Acute Assessment and Plan: Secondary to cellulitis with abscess and diabetic foot ulcer of left foot Appreciate wound care, continue vancomycin, cefepime and Flagyl Follow-up blood and wound cultures Appreciate general surgery consultation, Critical Care consultation (4) Diabetic ulcer of left ankle: Code(s): E11.622 - Type 2 diabetes mellitus with other skin ulcer; L97.329 - Non-pressure chronic ulcer of left ankle with unspecified severity Status: Acute Assessment and Plan: As above (5) Hyperlipidemia: Code(s): E78.5 - Hyperlipidemia, unspecified Status: Acute Assessment and Plan: Continue statin (6) Hypertension: Code(s): I10 - Essential (primary) hypertension Status: Acute Assessment and Plan: Blood pressure is in low but acceptable range Hold blood pressure medication (7) Chronic anticoagulation: Code(s): 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 He is vaccinated against COVID-19. 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 No new complaints. Patient states he feels quite well. He states the pressure in his leg feels much better after the I&D. Review of Systems Review of Systems: 12 point review of systems was assessed and was negative except as noted in the HPI Exam Narrative: General: No acute distress, alert and oriented per baseline HEENT: Atraumatic, normocephalic, mucous membranes moist CV: Regular rate and rhythm Lungs: Nonlabored breathing, no audible wheeze Abdomen: Soft, nontender, nondistended Extremities: Normal to inspection, wound on left lower extremity noted Psych: Euthymic, normal affect Objective Data Vital Signs Vital Signs: Vital Signs - 24 hr 08/20/22 11:26 08/20/22 11:30 08/20/22 11:45 Temperature Pulse Rate 127 H 118 H 95 Respiratory Rate 14 13 17 Blood Pressure Pulse Oximetry 93 94 Oxygen Delivery 08/20/22 12:34 08/20/22 12:45 08/20/22 12:47 Temperature Pulse Rate 105 H 116 H Respiratory Rate 13 16 Blood Pressure 91/75 L Pulse Oximetry 93 95 98 Oxygen Delivery 08/20/22 13:00 08/20/22 13:01 08/20/22 13:15 Te
[2022-08-21] MEDS: AMIODARONE 150 MG/D5W 100 ML 150 MG/100 ML BAG 600 MG IV CONT ×2 (11:40→21:02)
--- NOTE | 2022-08-21 12:31 | PM.CNGS ---
Assessment and Plan Assessment and plan (1) Abscess of left lower leg: Code(s): L02.416 - Cutaneous abscess of left lower limb Status: Acute Assessment and Plan: The patient clearly has an abscess that has developed on his left lower leg. Cultures have been taken in the emergency department already. I have recommended proceeding with incision and drainage at the bedside with local anesthetic today. Will continue packing changes daily and continue monitoring for any further progression of the infection. Continue broad-spectrum IV antibiotics and supportive care. (2) Diabetic ketoacidosis: Code(s): E11.10 - Type 2 diabetes mellitus with ketoacidosis without coma Status: Acute Assessment and Plan: Management per Critical Care Service (3) Atrial fibrillation with rapid ventricular response: Code(s): I48.91 - Unspecified atrial fibrillation Status: Acute (4) Sepsis: Code(s): A41.9 - Sepsis, unspecified organism Status: Acute History of Present Illness Consult details Consult date: 08/21/22 Reason for consult: wound care (Left lower leg wound) Narrative: This is a 72-year-old man who I am asked to see for cellulitis and a left leg wound. He is currently in the ICU with DKA and positive COVID test. He had signs of sepsis on admission. The patient states that he fell several days ago and his cane hit his leg in the area where the wound developed. He denies any wound on his leg prior to this. He states that his leg gave out and that is what caused his fall, but denies any lightheadedness or syncope. Denies any head injury or any other areas where he feels is injured. There is an open wound on his left lower leg with purulence drainage. He also has some cellulitis along the lower leg. Review of Systems Review of Systems: All systems reviewed & are unremarkable except as noted in HPI and below Eyes: Eyes: Denies change in vision ENT: Denies hearing loss, Denies neck pain and Denies sore throat Cardiovascular: Cardiovascular: Denies chest pain and Denies dyspnea Respiratory: Respiratory: Denies cough, Denies dyspnea and Denies wheezing Genitourinary: Genitourinary: Denies hematuria and Denies dysuria Musculoskeletal: Musculoskeletal: Denies arthralgias, Denies joint swelling and Denies neck pain Allergic/Immunologic: Allergic/Immunologic: Denies wheezing PMFSH Past Medical History Medical History Chronic anticoagulation 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 Family History Family History Father Cancer Hypertension Heart disease Mother Cancer Diabetes mellitus Hypertension Heart disease Sibling Cancer Hypertension Heart disease Other Asthma Carcinoma of colon Cerebrovascular accident Depression Family history of arthritis Family history of cardiovascular disease Family history of chronic obstructive pulmonary disease Family history of malignant neoplasm Family history of malignant neoplasm of breast in first degree relative Family history of mental disorder Malignant neoplasm of prostate Social History Social History Social History: Surrogate medical decision maker: Rocio Peña, daughter. Code status: Full code. Smoking status: Former smoker Tobacco type: cigarettes Second hand tobacco smoke exposure: No Alcohol intake: never Substance use: never Substance use type: d
[2022-08-21 12:35] LABS: Glucose Point of Care 234 mg/dl (65-105)
--- NOTE | 2022-08-21 12:59 | P.OP_ITS ---
Procedure Note - Detailed Date of Procedure 08/21/22 Pre-op Diagnosis Left lower leg abscess, sepsis, DKA Post-op Diagnosis Same Procedure Performed Incision and drainage of left lower leg abscess Surgeon Crispin Maritnez DO Anesthesia Local (1% lidocaine) Description of Procedure Procedure as well as risks, benefits, and alternatives were discussed with the patient. Written consent was obtained and placed in chart prior to procedure. Patient was placed supine in hospital bed. Time-out was done to confirm patient and procedure. His left lower leg area was prepped and draped in sterile fashion using Betadine prep. 1% lidocaine was infiltrated locally around the abscess. A 4 cm incision was made using a 15 blade scalpel directly over the area of fluctuance and drainage. About 2 oz of purulence fluid was drained. Minimal bleeding was noted. Pressure was applied to help with hemostasis. All of the purulence fluid was drained and then the wound bed was probed with a Q- tip. No other loculations or abscess cavities were noted. The wound was then packed with half-inch iodoform gauze. 4 x 4 gauze and Kerlix wrap was then applied followed by Medipore tape. Estimated Blood Loss 2 Packing Yes (Half-inch iodoform gauze) Complications No immediate complications Condition Stable Disposition No change [facility] Billing Surgery - Charge Forward: Surgery Billing
[2022-08-21] MEDS: INSULIN ASPART (*BKC) 100 UNITS/ML SUB-Q ×2 (13:07→18:13)
[2022-08-21] MEDS: INSULIN ASPART (*BKC) 100 UNITS/ML 12 UNITS SUB-Q ×2 (13:07→18:13)
[2022-08-21 13:23] LABS: Toxigenic C. Diff NEGATIVE (NEGATIVE)
[2022-08-21] MEDS: METOPROLOL TARTRATE INJ 5 MG/5 ML VIAL IV PUSH (19:20)
[2022-08-21] MEDS: INSULIN GLARGINE (*BKC) 100 UNITS/ML SUB-Q (22:17)
[2022-08-21 22:50] LABS: Glucose Point of Care 260 mg/dl (65-105)
[2022-08-21 22:50] LABS: Glucose Point of Care 289 mg/dl (65-105)
[2022-08-22] VITALS (22 sets, daily range): BP systolic 97–130; BP diastolic 65–86; PULSE 103–139; RESP 18–27; TEMP 36.9–37.6; O2SAT 94–100
[2022-08-22] MEDS: AMIODARONE 360 MG/D5W 200 ML 360 MG/200 ML BAG 33.33 MG IV CONT ×5 (00:26→23:26)
[2022-08-22 05:04] LABS: Alanine Aminotransferase 12 U/L (6-50); Estimated CRCL calculation 195 ml/min; Estimated Glomerular Filt Rate > 60; INR 1.9; Prothrombin Time 20.9 Seconds (11.1-14.7)
[2022-08-22] MEDS: metroNIDAZOLE 500 MG/ISO 100ML 500 MG/100 ML BAG 100 MG IVPB (06:30)
[2022-08-22 08:16] LABS: Basophils Percent Auto 0.3 % (0.2-1.2); Eosinophils Percent Auto 0.2 % (0-4.4); Hematocrit 38.8 % (42.0-52.0); Hemoglobin 12.3 g/dL (14.0-18.0); Immature Granulocyte Absolute 0.12 K/mm3 (0.00-0.031); Immature Granulocyte Percent A 1.2 % (0-0.5); Lymphocytes Absolute Auto 1.19 K/mm3 (0.9-3.2); Lymphocytes Percent Auto 11.6 % (18.3-44.2); Mean Corpuscular HGB Conc 31.7 g/dl (32-36); Mean Corpuscular Hemoglobin 24.7 pg (26-34); Mean Corpuscular Volume 77.9 fl (80-100); Mean Platelet Volume 11.5 fl (7.4-10.4); Monocytes Absolute Auto 0.7 K/mm3 (0.1-0.6); Monocytes Percent Auto 6.5 % (2.6-8.5); Neutrophils Absolute Auto 8.2 K/mm3 (1.3-6.7); Neutrophils Percent Auto 80.2 % (45.5-73.1); Platelet Count Result 223 k/mm3 (150-375); Red Blood Count 4.98 M/mm3 (4.6-6.20); Red Cell Distribution Width 15.8 % (11.5-14.5); White Blood Count 10.2 K/mm3 (4.5-10.0)
[2022-08-22] MEDS: KCL 20MEQ/0.9% SOD CHL 1,000 ML 50 ML IV CONT (09:11)
[2022-08-22 09:12] LABS: Alanine Aminotransferase 13 U/L (6-50); Albumin Level 2.4 g/dL (3.5-5.1); Alkaline Phosphatase 89 U/L (38-126); Anion Gap 4 mmol/L (8-16); Aspartate Amino Transferase 36 U/L (17-59); Bilirubin,Total 0.7 mg/dL (0.2-1.3); Blood Urea Nitrogen 9 mg/dL (9-20); Calcium 7.3 mg/dL (8.4-10.2); Carbon Dioxide 23 mmol/L (22-30); Chloride 97 mmol/L (98-107); Estimated CRCL calculation 153 ml/min; Estimated Glomerular Filt Rate > 60; Glucose 233 mg/dL (65-110); Magnesium 1.7 mg/dL (1.6-2.3); Phosphorus 1.7 mg/dL (2.5-4.5); Potassium 3.8 mmol/L (3.4-5.0); Sodium 124 mmol/L (137-145)
[2022-08-22] MEDS: METOPROLOL TARTRATE 25 MG TABLET PO ×2 (09:13→20:13)
[2022-08-22] MEDS: PREGABALIN (*CRX) 75 MG CAPSULE 150 MG PO (09:13)
[2022-08-22] MEDS: ASPIRIN 81 MG ENTERIC TABLET PO (09:14)
[2022-08-22] MEDS: OMEGA 3 POLYUNSAT FATTY ACIDS 1 GM CAP 4 GM PO (09:14)
[2022-08-22] MEDS: APIXABAN 5 MG TABLET PO ×2 (09:15→17:45)
[2022-08-22] MEDS: PRAVASTATIN SODIUM 20 MG TABLET 40 MG PO (09:15)
[2022-08-22] MEDS: MONTELUKAST SODIUM 10 MG TABLET PO (09:15)
[2022-08-22] MEDS: TAMSULOSIN HCL 0.4 MG CAPSULE PO (09:16)
[2022-08-22 09:36] LABS: Glucose Point of Care 190 mg/dl (65-105)
--- NOTE | 2022-08-22 09:57 | WPDINTPN ---
Progress Note: A&P Assessment and Plan (1) Sepsis: Code(s): A41.9 - Sepsis, unspecified organism Status: Acute Assessment and Plan: Secondary to cellulitis, diabetic foot ulcer and abscess of left foot 10/22 bedside incision and drainage of left foot abscess by general surgery CT scan MPRESSION: 1. No fracture or other acute osseous abnormality at the left lower leg, foot or ankle. 2. Findings suggestive of diffuse cellulitis throughout the left lower leg and foot and ankle with shallow skin ulceration cephalad to the medial malleolus without underlying soft tissue gas, abscess or osteomyelitis. 3. 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 Consulted wound care Patient currently on Empiric vancomycin cefepime and Flagyl. Change cefepime to IV Ancef. DC Flagyl Blood cultures have been sent and pending. 08/30 bottles are growing group B strep and I will send repeat cultures Continue IV fluids but decrease rate He has not required vasopressors until now (2) Atrial fibrillation with rapid ventricular response: Code(s): I48.91 - Unspecified atrial fibrillation Status: Acute Assessment and Plan: Patient currently on amiodarone infusion Add p.o. metoprolol Continue apixaban (3) Diabetic ketoacidosis: Code(s): E11.10 - Type 2 diabetes mellitus with ketoacidosis without coma Status: Acute Assessment and Plan: Patient presented with uncontrolled blood sugars and met criteria for for DKA Patient was given IV fluid bolus and IV insulin and his anion gap closed but since patient was in sepsis and had uncontrolled diabetes, I requested ED to start him on insulin infusion for tight blood sugar control. Patient has now been transitioned to subcutaneous insulin (4) Diabetic ulcer of left ankle: Code(s): E11.622 - Type 2 diabetes mellitus with other skin ulcer; L97.329 - Non-pressure chronic ulcer of left ankle with unspecified severity Status: Acute Assessment and Plan: See above (5) Abscess of left lower leg: Code(s): L02.416 - Cutaneous abscess of left lower limb Status: Acute Assessment and Plan: See above (6) COVID-19: Code(s): U07.1 - COVID-19 Status: Acute Assessment and Plan: Patient tested positive for COVID-19 but does not have COVID-19 pneumonia. He is vaccinated against COVID-19. Chest x-ray was clear Since patient has risk factors being uncontrolled diabetes and he is at High Risk of Progressing to Severe COVID-19 Paxlovid it is not available which I have confirmed pharmacy [id number] I have discussed with patient option of treating him with remdesivir explaining pros and cons and he is agreeable to proceed Patient was started IV remdesivir for 5 days or until discharge (7) Chronic deep vein thrombosis (DVT): Qualifiers: Affected thrombotic vein of extremity: tibial DVT location: lower extremity Laterality: left Qualified Code(s): I82.542 - Chronic embolism and thrombosis of left tibial vein Code(s): I82.509 - Chronic embolism and thrombosis of unspecified deep veins of unspecified lower extremity Status: Acute Assessment and Plan: Lower extremity Dopplers- IMPRESSION: 1.? Small amount of residual likely chronic deep venous thrombosis in the left posterior tibial vein with resolution of prior thrombus in the left posterior tibial and peroneal veins. Continue Eliquis (8) Electrolyte abnormality: Code(s): E87.8 - Other disorders of electrolyte and fluid balance, not elsewhere classified Status: Acute Assessment and Plan: Replace low phosphate (9) Chronic anticoagulation: Code(s): Z79.01 - assisted (current) use of anticoagulants Status: Acute Assessment and Plan: Continue Eliquis (10) Hypertension: Code(s): I10 - Essential (primary) hypertension Status: Acute Assessment and Plan: Blood pressu
[2022-08-22 10:38] LABS: Vancomycin Trough 13.1 ug/mL (10.0-20.0)
[2022-08-22] MEDS: POTASSIUM PHOS,M-BASIC-D-BASIC 20 MMOL in SODIUM CHLORIDE 0.9% IV 250 ML 64.17 MMOL IVPB (11:40)
[2022-08-22] MEDS: SODIUM CHLORIDE 0.9% IV 1,000 ML 50 ML IV CONT (11:41)
[2022-08-22] MEDS: REMDESIVIR 100 MG/NS 250 ML 100 MG/250 ML BAG 250 MG IVPB (11:42)
[2022-08-22] MEDS: INSULIN ASPART (*BKC) 100 UNITS/ML 16 UNITS SUB-Q ×2 (11:53→17:43)
[2022-08-22] MEDS: INSULIN ASPART (*BKC) 100 UNITS/ML SUB-Q ×2 (11:53→17:44)
[2022-08-22 12:02] LABS: Glucose Point of Care 204 mg/dl (65-105)
--- NOTE | 2022-08-22 12:37 | PM.PNGS ---
Progress Note: A&P Assessment and Plan (1) Abscess of left lower leg: Code(s): L02.416 - Cutaneous abscess of left lower limb Status: Acute Assessment and Plan: Continue daily packing changes. Will continue to monitor. (2) Diabetic ketoacidosis: Code(s): E11.10 - Type 2 diabetes mellitus with ketoacidosis without coma Status: Acute (3) Atrial fibrillation with rapid ventricular response: Code(s): I48.91 - Unspecified atrial fibrillation Status: Acute (4) Sepsis: Code(s): A41.9 - Sepsis, unspecified organism Status: Acute Subjective Subjective Date/Time Seen: 08/22/22 12:37 Interval history: Doing well. Pain improving. No fevers. Exam Extrem: Other: Left lower leg abscess packing removed, still has some purulent drainage, no other new areas of fluctuance, no bleeding. Objective Data Vital Signs Vital Signs: Vital Signs - 24 hr 08/21/22 14:00 08/21/22 16:00 08/21/22 18:00 Temperature 37.6 C Pulse Rate 132 H 129 H 138 H Respiratory Rate 20 25 H 25 H Blood Pressure 108/49 L 127/84 125/83 Pulse Oximetry 98 97 96 Oxygen Delivery 08/21/22 18:07 08/21/22 18:07 08/21/22 19:19 Temperature Pulse Rate 138 H 138 H 152 H Respiratory Rate Blood Pressure 125/83 125/83 123/89 Pulse Oximetry Oxygen Delivery 08/21/22 19:20 08/21/22 14:00 08/21/22 16:00 Temperature Pulse Rate 148 H 128 H 121 H Respiratory Rate Blood Pressure Pulse Oximetry Oxygen Delivery 08/21/22 18:00 08/21/22 21:02 08/21/22 20:00 Temperature Pulse Rate 136 H 124 H 109 H Respiratory Rate Blood Pressure 135/78 Pulse Oximetry Oxygen Delivery 08/21/22 20:00 08/21/22 20:00 08/21/22 22:00 Temperature 36.8 C Pulse Rate 118 H 125 H Respiratory Rate 28 H 28 H Blood Pressure 114/68 119/74 Pulse Oximetry 94 96 Oxygen Delivery Room Air 08/21/22 22:00 08/22/22 00:08 08/22/22 00:26 Temperature Pulse Rate 125 H 128 H 128 H Respiratory Rate Blood Pressure 115/84 Pulse Oximetry Oxygen Delivery 08/22/22 00:00 08/22/22 00:00 08/22/22 04:00 Temperature 37.0 C Pulse Rate 118 H Respiratory Rate 27 H Blood Pressure 117/77 Pulse Oximetry 97 Oxygen Delivery Room Air Room Air 08/22/22 02:00 08/22/22 00:00 08/22/22 02:00 Temperature Pulse Rate 132 H 124 H 132 H Respiratory Rate 20 Blood Pressure 130/83 Pulse Oximetry 97 Oxygen Delivery 08/22/22 04:00 08/22/22 04:00 08/22/22 06:00 Temperature Pulse Rate 130 H 128 H 117 H Respiratory Rate 26 H Blood Pressure 125/86 Pulse Oximetry 97 Oxygen Delivery 08/22/22 06:00 08/22/22 06:27 08/22/22 06:31 Temperature 37.0 C Pulse Rate 130 H 120 H 120 H Respiratory Rate 23 H Blood Pressure 123/76 Pulse Oximetry 96 Oxygen Delivery 08/22/22 09:13 08/22/22 08:00 08/22/22 08:00 Temperature 37.6 C H Pulse Rate 124 H 124 H 124 H Respiratory Rate 20 20 Blood Pressure 122/73 Pulse Oximetry 100 100 Oxygen Delivery Room Air 08/22/22 08:00 08/22/22 10:00 08/22/22 10:00 Temperature Pulse Rate 127 H 114 H 114 H Respiratory Rate 20 Blood Pressure 97/65 L Pulse Oximetry 94 Oxygen Delivery 08/22/22 11:58 08/22/22 11:58 Temperature Pulse Rate 103 H 103 H Respiratory Rate Blood Pressure Pulse Oximetry Oxygen Delivery Intake/Output Intake/Output: Intake & Output 08/19/22 08/20/22 08/21/22 08/22/22 23:59 23:59 23:59 23:59 Intake Total 2650 5570 2875 Output Total 600 1050 Balance 2650 9149 1824 Meds/Results Medications: Active Medications Generic Name Dose Route Start Last Admin Trade Name Santo PRN Reason Stop Dose Admin Apixaban 5 mg 08/21/22 09:00 08/22/22 09:15 Apixaban 5 Mg Tablet PO 5 mg BID YESSICA Administration Aspirin 81 mg 08/21/22 09:00 08/22/22 09:14 Aspirin 81 Mg Enteric Tablet PO 81 mg DAILY [facility] Adm
[2022-08-22] MEDS: ceFAZolin 2 GM/D5W 50 ML 2 GM/50 ML BAG IVPB ×2 (15:01→23:00)
[2022-08-22 17:49] LABS: Glucose Point of Care 234 mg/dl (65-105)
[2022-08-22] MEDS: METOPROLOL TARTRATE INJ 5 MG/5 ML VIAL IV PUSH (18:41)
[2022-08-22] MEDS: INSULIN GLARGINE (*BKC) 100 UNITS/ML SUB-Q (20:12)
[2022-08-22 20:52] LABS: Glucose Point of Care 130 mg/dl (65-105)
[2022-08-23] VITALS (24 sets, daily range): BP systolic 97–126; BP diastolic 55–82; PULSE 82–128; RESP 24–28; TEMP 36.9–38.3; O2SAT 91–95; BMI 26.7
[2022-08-23 04:14] LABS: Hematocrit 36.8 % (42.0-52.0); Hemoglobin 11.8 g/dL (14.0-18.0); Mean Corpuscular HGB Conc 32.1 g/dl (32-36); Mean Corpuscular Hemoglobin 24.6 pg (26-34); Mean Corpuscular Volume 76.7 fl (80-100); Mean Platelet Volume 10.7 fl (7.4-10.4); Platelet Count Result 170 k/mm3 (150-375); Red Cell Distribution Width 15.6 % (11.5-14.5); White Blood Count 8.4 K/mm3 (4.5-10.0)
[2022-08-23 04:25] LABS: INR 2.2; Prothrombin Time 23.4 Seconds (11.1-14.7)
[2022-08-23 04:27] LABS: Alanine Aminotransferase 12 U/L (6-50); Albumin Level 2.2 g/dL (3.5-5.1); Alkaline Phosphatase 100 U/L (38-126); Anion Gap 2 mmol/L (8-16); Aspartate Amino Transferase 37 U/L (17-59); Bilirubin,Total 0.7 mg/dL (0.2-1.3); Blood Urea Nitrogen 8 mg/dL (9-20); Calcium 6.7 mg/dL (8.4-10.2); Carbon Dioxide 27 mmol/L (22-30); Chloride 93 mmol/L (98-107); Estimated CRCL calculation 153 ml/min; Estimated Glomerular Filt Rate > 60; Glucose 119 mg/dL (65-110); Magnesium 1.6 mg/dL (1.6-2.3); Potassium 3.2 mmol/L (3.4-5.0); Sodium 122 mmol/L (137-145)
[2022-08-23] MEDS: AMIODARONE 360 MG/D5W 200 ML 360 MG/200 ML BAG 33.33 MG IV CONT ×3 (06:08→18:55)
[2022-08-23] MEDS: SODIUM CHLORIDE 0.9% IV 1,000 ML 50 ML IV CONT (06:09)
[2022-08-23] MEDS: ceFAZolin 2 GM/D5W 50 ML 2 GM/50 ML BAG IVPB ×3 (06:09→22:19)
[2022-08-23 08:09] LABS: Glucose Point of Care 103 mg/dl (65-105)
[2022-08-23] MEDS: ASPIRIN 81 MG ENTERIC TABLET PO (08:34)
[2022-08-23] MEDS: APIXABAN 5 MG TABLET PO ×2 (08:34→18:55)
[2022-08-23] MEDS: OMEGA 3 POLYUNSAT FATTY ACIDS 1 GM CAP 4 GM PO (08:34)
[2022-08-23] MEDS: PREGABALIN (*CRX) 75 MG CAPSULE 150 MG PO (08:34)
[2022-08-23] MEDS: METOPROLOL TARTRATE 25 MG TABLET PO ×4 (08:35→22:19)
[2022-08-23] MEDS: PRAVASTATIN SODIUM 20 MG TABLET 40 MG PO (08:35)
[2022-08-23] MEDS: TAMSULOSIN HCL 0.4 MG CAPSULE PO (08:35)
[2022-08-23] MEDS: MONTELUKAST SODIUM 10 MG TABLET PO (08:35)
[2022-08-23] MEDS: INSULIN ASPART (*BKC) 100 UNITS/ML 16 UNITS SUB-Q (08:36)
--- NOTE | 2022-08-23 09:28 | PM.IMPN ---
Progress Note: A&P Assessment and Plan (1) Sepsis: Code(s): A41.9 - Sepsis, unspecified organism Status: Acute Assessment and Plan: Secondary to cellulitis, diabetic foot ulcer and abscess of left foot 10/22 bedside incision and drainage of left foot abscess by general surgery CT scan MPRESSION: 1. No fracture or other acute osseous abnormality at the left lower leg, foot or ankle. 2. Findings suggestive of diffuse cellulitis throughout the left lower leg and foot and ankle with shallow skin ulceration cephalad to the medial malleolus without underlying soft tissue gas, abscess or osteomyelitis. 3. 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 Consulted wound care Patient currently on Empiric vancomycin cefepime and Flagyl. Change cefepime to IV Ancef. DC Flagyl Blood cultures have been sent and growing group B strep in 1/2 bottles and wound cultures also growing group B strep and I have sent repeat cultures Discontinue vancomycin continue Ancef DC IV fluids He has not required vasopressors until now (2) Atrial fibrillation with rapid ventricular response: Code(s): I48.91 - Unspecified atrial fibrillation Status: Acute Assessment and Plan: Patient currently on amiodarone infusion heart rate remains tachycardic Continue p.o. metoprolol but increase dose to q.8 hours Continue apixaban TSH was normal Check echocardiogram (3) Diabetic ketoacidosis: Code(s): E11.10 - Type 2 diabetes mellitus with ketoacidosis without coma Status: Acute Assessment and Plan: Patient presented with uncontrolled blood sugars and met criteria for for DKA Patient was treated with IV fluids and insulin infusion Patient has now been transitioned to subcutaneous insulin. I will decrease the dose after reviewing his blood sugars (4) Diabetic ulcer of left ankle: Code(s): E11.622 - Type 2 diabetes mellitus with other skin ulcer; L97.329 - Non-pressure chronic ulcer of left ankle with unspecified severity Status: Acute Assessment and Plan: See above (5) Abscess of left lower leg: Code(s): L02.416 - Cutaneous abscess of left lower limb Status: Acute Assessment and Plan: See above (6) COVID-19: Code(s): U07.1 - COVID-19 Status: Acute Assessment and Plan: Patient tested positive for COVID-19 but does not have COVID-19 pneumonia. He is vaccinated against COVID-19. Chest x-ray was clear Since patient has risk factors being uncontrolled diabetes and he is at High Risk of Progressing to Severe COVID-19 Paxlovid it is not available which I have confirmed pharmacy 1224 I have discussed with patient option of treating him with remdesivir explaining pros and cons and he is agreeable to proceed Patient was started IV remdesivir for 5 days or until discharge (7) Chronic deep vein thrombosis (DVT): Qualifiers: Affected thrombotic vein of extremity: tibial DVT location: lower extremity Laterality: left Qualified Code(s): I82.542 - Chronic embolism and thrombosis of left tibial vein Code(s): I82.509 - Chronic embolism and thrombosis of unspecified deep veins of unspecified lower extremity Status: Acute Assessment and Plan: Lower extremity Dopplers- IMPRESSION: 1.? Small amount of residual likely chronic deep venous thrombosis in the left posterior tibial vein with resolution of prior thrombus in the left posterior tibial and peroneal veins. Continue Eliquis (8) Electrolyte abnormality: Code(s): E87.8 - Other disorders of electrolyte and fluid balance, not elsewhere classified Status: Acute Assessment and Plan: Replace low potassium magnesium and calcium (9) Chronic anticoagulation: Code(s): Z79.01 - custodial (current) use of anticoagulants Status: Acute Assessment and Plan: Continue Eliquis (10) Hypertension: Code(s): I10 - Essential (primary)
[2022-08-23] MEDS: REMDESIVIR 100 MG/NS 250 ML 100 MG/250 ML BAG 250 MG IVPB (10:24)
[2022-08-23] MEDS: MAGNESIUM OXIDE 400 MG TABLET PO (10:28)
[2022-08-23] MEDS: CALCIUM GLUC 2,000 MG/NS 100ML 2,000 MG/100 ML BAG 100 MG IVPB (10:29)
[2022-08-23] MEDS: SODIUM CHLORIDE 1 GM TABLET PO ×2 (10:31→18:56)
[2022-08-23] MEDS: POTASSIUM CHLORIDE 20 MEQ PACKET (FOR LIQUID) 40 MEQ PO ×2 (10:31→15:04)
[2022-08-23 12:37] LABS: Glucose Point of Care 119 mg/dl (65-105)
[2022-08-23] MEDS: INSULIN ASPART (*BKC) 100 UNITS/ML 12 UNITS SUB-Q ×2 (12:54→18:56)
--- NOTE | 2022-08-23 13:24 | PM.PNGS ---
Progress Note: A&P Assessment and Plan (1) Abscess of left lower leg: Code(s): L02.416 - Cutaneous abscess of left lower limb Status: Acute Assessment and Plan: Continue daily packing changes. Will continue to monitor. (2) Diabetic ketoacidosis: Code(s): E11.10 - Type 2 diabetes mellitus with ketoacidosis without coma Status: Acute (3) Atrial fibrillation with rapid ventricular response: Code(s): I48.91 - Unspecified atrial fibrillation Status: Acute (4) Sepsis: Code(s): A41.9 - Sepsis, unspecified organism Status: Acute Subjective Subjective Date/Time Seen: 08/23/22 13:24 Interval history: Doing well. Pain nearly resolved. No fevers. Still having purulent drainage at wound. Exam Extrem: Other: Left lower leg abscess packing removed, still has some purulent drainage, no other new areas of fluctuance, no bleeding. Objective Data Vital Signs Vital Signs: Vital Signs - 24 hr 08/22/22 14:00 08/22/22 16:00 08/22/22 16:00 Temperature 37.6 C H Pulse Rate 106 H 115 H 116 H Respiratory Rate 18 22 H Blood Pressure 106/66 Pulse Oximetry 96 95 Oxygen Delivery Room Air 08/22/22 17:43 08/22/22 17:43 08/22/22 16:00 Temperature Pulse Rate 124 H 124 H 113 H Respiratory Rate Blood Pressure 127/75 127/75 Pulse Oximetry Oxygen Delivery 08/22/22 18:00 08/22/22 18:41 08/22/22 20:13 Temperature Pulse Rate 124 H 139 H 110 H Respiratory Rate Blood Pressure Pulse Oximetry Oxygen Delivery 08/22/22 23:26 08/22/22 23:26 08/22/22 20:00 Temperature Pulse Rate 120 H 120 H 118 H Respiratory Rate Blood Pressure 109/74 Pulse Oximetry Oxygen Delivery 08/22/22 20:00 08/22/22 22:00 08/23/22 00:00 Temperature Pulse Rate 121 H 118 H Respiratory Rate Blood Pressure Pulse Oximetry Oxygen Delivery Room Air 08/23/22 02:00 08/23/22 00:00 08/22/22 20:00 Temperature 36.9 C Pulse Rate 103 H 113 H Respiratory Rate 25 H Blood Pressure 97/65 L Pulse Oximetry 94 Oxygen Delivery Room Air 08/23/22 05:27 08/23/22 04:00 08/23/22 00:00 Temperature 36.9 C Pulse Rate 128 H 123 H Respiratory Rate 28 H Blood Pressure 103/58 L 101/64 Pulse Oximetry 91 Oxygen Delivery Room Air 08/23/22 04:00 08/23/22 04:00 08/23/22 06:00 Temperature 37.0 C Pulse Rate 109 H 117 H 109 H Respiratory Rate 24 H Blood Pressure 104/65 Pulse Oximetry 93 Oxygen Delivery 08/23/22 08:35 08/23/22 08:00 08/23/22 10:27 Temperature 36.9 C Pulse Rate 116 H 123 H 125 H Respiratory Rate 28 H Blood Pressure 122/68 Pulse Oximetry 91 Oxygen Delivery 08/23/22 07:00 08/23/22 08:00 08/23/22 09:00 Temperature Pulse Rate 97 125 H 82 Respiratory Rate Blood Pressure 97/62 L 122/68 101/55 L Pulse Oximetry Oxygen Delivery 08/23/22 10:00 08/23/22 11:00 08/23/22 12:00 Temperature Pulse Rate 107 H 113 H 97 Respiratory Rate Blood Pressure 113/61 115/82 122/69 Pulse Oximetry Oxygen Delivery 08/23/22 12:09 08/23/22 12:10 08/23/22 12:00 Temperature 37.4 C Pulse Rate 111 H 111 H 119 H Respiratory Rate 26 H Blood Pressure 120/76 120/76 122/69 Pulse Oximetry 94 Oxygen Delivery Intake/Output Intake/Output: Intake & Output 08/20/22 08/21/22 08/22/22 08/23/22 23:59 23:59 23:59 23:59 Intake Total 2650 5570 5301.667 2530 Output Total 600 2100 525 Balance 2650 4970 3201.667 2004 Meds/Results Medications: Active Medications Generic Name Dose Route Start Last Admin Trade Name Freq PRN Reason Stop Dose Admin Apixaban 5 mg 08/21/22 09:00 08/23/22 08:34 Apixaban 5 Mg Tablet PO 5 mg BID YESSICA Administration Aspirin 81 mg 08/21/22 09:00 08/23/22 08:34 Aspirin 81 Mg Enteric Tablet PO 81 mg DAILY YESSICA Administration Dextrose 12.5 gm 08/21/22 08:14 Dextrose 50% 25 Gm/50 Ml Syringe IV PUSH
[2022-08-23 16:23] LABS: Glucose Point of Care 125 mg/dl (65-105)
[2022-08-23] MEDS: INSULIN GLARGINE (*BKC) 100 UNITS/ML 80 UNITS SUB-Q (20:36)
[2022-08-23 21:16] LABS: Glucose Point of Care 105 mg/dl (65-105)
[2022-08-24] VITALS (22 sets, daily range): BP systolic 90–113; BP diastolic 58–77; PULSE 95–124; RESP 20–25; TEMP 36.8–37.4; O2SAT 90–99
--- NOTE | 2022-08-24 | ECHO_ITS ---
Patient Info Name: John Warren Age: 72 years : 1950 Gender: Male Ht: 72 in Wt: 197 lbs BSA: 2.14 m2 HR: 103 bpm BP: 104 / 65 mmHg Heart Rhythm: Atrial Fibrillation Technical Quality: Fair Exam Date: 08/24/2022 2:44 PM Exam Location: [facility] Pul[facility] Patient Status: Inpatient Admit Date: 08/21/2022 Staff Ordering Physician: Heath Nolasco MD Business Transformation Manager: Mariaa Simmons RDCS Attending Provider: Mars Jarvis MD Exam Type: CA echo doppler color flow Study Info Indications - afib Complete two-dimensional, color flow and Doppler transthoracic echocardiogram is performed. Summary 1. Complete two-dimensional, color flow and Doppler transthoracic echocardiogram is performed. 2. Technically difficult study with limited views. 3. Left ventricular chamber dimension is normal. 4. Left ventricular systolic function is normal, estimated at 65%. Sigmoid septum. 5. There is mildly increased left ventricular wall thickness. 6. The left ventricular diastolic function is indeterminate. 7. Right atrial chamber dimension is moderately enlarged. 8. There is mild tricuspid valve regurgitation. 9. Mild pulmonary hypertension, estimated pulmonary arterial systolic pressure is 35 mmHg. Left Ventricle Left ventricular chamber dimension is normal. Left ventricular systolic function is normal, estimated at 65%. Sigmoid septum. There is mildly increased left ventricular wall thickness. The left ventricular diastolic function is indeterminate. Technically difficult study with limited views. Right Ventricle Right ventricular chamber dimension is normal. Right ventricular systolic function is reduced. TAPSE 1.3. Left Atria Left atrial chamber dimension is mildly enlarged. Right Atria Right atrial chamber dimension is moderately enlarged. Aortic Valve The aortic valve is not well visualized. There is no aortic valve stenosis. There is no aortic valve regurgitation. There is mild aortic valve calcification. Pulmonic Valve The pulmonic valve is not well visualized. Mitral Valve The mitral valve has thickened leaflets. There is trace mitral valve regurgitation. The mitral valve annulus is moderately calcified. Tricuspid Valve The tricuspid valve leaflets are normal. There is mild tricuspid valve regurgitation. Mild pulmonary hypertension, estimated pulmonary arterial systolic pressure is 35 mmHg. Pericardium/Pleural The pericardium appears normal. There is no pericardial effusion. Left pleural effusion. Inferior Vena Cava Dilated inferior vena cava with >50% collapse upon inspiration consistent with elevated right atrial pressure, 10 mmHg. Aorta The aortic root size at the sinus of Valsalva is normal. There is mild aortic atherosclerosis. Left Ventricular Outflow Tract Name Value Normal LVOT 2D LVOT Diameter 2.1 cm LVOT Doppler LVOT Peak Gradient 4 mmHg LVOT Mean Gradient 3 mmHg LVOT VTI 14 cm LVOT VTI/AV VTI Ratio 0.8 LVOT Strok
[2022-08-24] MEDS: AMIODARONE 360 MG/D5W 200 ML 360 MG/200 ML BAG 33.33 MG IV CONT (00:10)
[2022-08-24 00:22] LABS: Glucose Point of Care 87 mg/dl (65-105)
[2022-08-24 01:34] LABS: Vancomycin Trough 8.4 ug/mL (10.0-20.0)
[2022-08-24 05:07] LABS: Hematocrit 35.6 % (42.0-52.0); Hemoglobin 11.7 g/dL (14.0-18.0); Mean Corpuscular HGB Conc 32.9 g/dl (32-36); Mean Corpuscular Hemoglobin 24.5 pg (26-34); Mean Corpuscular Volume 74.5 fl (80-100); Mean Platelet Volume 10.8 fl (7.4-10.4); Platelet Count Result 220 k/mm3 (150-375); Red Blood Count 4.78 M/mm3 (4.6-6.20); Red Cell Distribution Width 15.8 % (11.5-14.5); White Blood Count 10.1 K/mm3 (4.5-10.0)
[2022-08-24] MEDS: ceFAZolin 2 GM/D5W 50 ML 2 GM/50 ML BAG IVPB ×3 (05:16→21:05)
[2022-08-24] MEDS: METOPROLOL TARTRATE 25 MG TABLET PO ×3 (05:17→21:06)
[2022-08-24 05:19] LABS: INR 2.4; Prothrombin Time 25.2 Seconds (11.1-14.7)
[2022-08-24 05:24] LABS: Alanine Aminotransferase 28 U/L (6-50); Alkaline Phosphatase 697 U/L (38-126); Anion Gap 3 mmol/L (8-16); Aspartate Amino Transferase 168 U/L (17-59); Bilirubin,Total 0.8 mg/dL (0.2-1.3); Blood Urea Nitrogen 13 mg/dL (9-20); Calcium 6.8 mg/dL (8.4-10.2); Carbon Dioxide 26 mmol/L (22-30); Chloride 97 mmol/L (98-107); Estimated CRCL calculation 126 ml/min; Estimated Glomerular Filt Rate > 60; Glucose 69 mg/dL (65-110); Magnesium 1.6 mg/dL (1.6-2.3); Potassium 3.7 mmol/L (3.4-5.0); Sodium 126 mmol/L (137-145)
[2022-08-24 05:49] LABS: Glucose Point of Care 72 mg/dl (65-105)
[2022-08-24 07:34] LABS: Glucose Point of Care 103 mg/dl (65-105)
[2022-08-24] MEDS: INSULIN ASPART (*BKC) 100 UNITS/ML 12 UNITS SUB-Q ×2 (07:52→11:31)
[2022-08-24] MEDS: APIXABAN 5 MG TABLET PO ×2 (08:00→16:54)
[2022-08-24] MEDS: ASPIRIN 81 MG ENTERIC TABLET PO (08:00)
[2022-08-24] MEDS: MONTELUKAST SODIUM 10 MG TABLET PO (08:00)
[2022-08-24] MEDS: PRAVASTATIN SODIUM 20 MG TABLET 40 MG PO (08:01)
[2022-08-24] MEDS: OMEGA 3 POLYUNSAT FATTY ACIDS 1 GM CAP 4 GM PO (08:01)
[2022-08-24] MEDS: TAMSULOSIN HCL 0.4 MG CAPSULE PO (08:01)
[2022-08-24] MEDS: PREGABALIN (*CRX) 75 MG CAPSULE 150 MG PO (08:01)
[2022-08-24] MEDS: SODIUM CHLORIDE 1 GM TABLET PO ×2 (08:06→16:54)
[2022-08-24] MEDS: PHARMACIST COMMUNICATION ORDER 1 EACH XX (08:24)
--- NOTE | 2022-08-24 08:49 | PCWOUND ---
WOCN NOTE Received referral over weekend for left leg wound.patient had I& D with Dr Martinez and has dressing order in. wound care not needed at this time to assess.
--- NOTE | 2022-08-24 09:31 | PM.CNCAR ---
Assessment and Plan Assessment and plan (1) Atrial fibrillation with rapid ventricular response: Code(s): I48.91 - Unspecified atrial fibrillation Status: Acute Assessment and Plan: History of PAF, has been in atrial fibrillation since admission. Rate generally well controlled on IV amiodarone and p.o. metoprolol. Has been adequately loaded with IV amiodarone at this point. Will shift him to p.o. amiodarone today and continue p.o. metoprolol as well. He is already anticoagulated with apixaban. (2) Abscess of left lower leg: Code(s): L02.416 - Cutaneous abscess of left lower limb Status: Acute Assessment and Plan: Management per general surgery (3) Hypertension: Code(s): I10 - Essential (primary) hypertension Status: Acute Assessment and Plan: At goal. History of Present Illness History of Present Illness Consult date/time: 08/24/22 09:31 Reason For Visit: DKA/Left Lower Extremity Wound Infection/Afib w RV Narrative: Mr. Warren Is a 72-year-old male with a past medical history significant for coronary artery disease status post PCI to the RCA in July of 2016, paroxysmal atrial fibrillation, hypertension, hyperlipidemia. This patient presented to the hospital with uncontrolled blood sugars he and met criteria for DKA. He also has cellulitis and sepsis secondary to diabetic ulcer on his left foot. Cardiology has been asked to see him for to atrial fibrillation with rapid ventricular response. His initial EKG from this hospitalization shows atrial fibrillation with rapid ventricular response with a rate of 151bpm. he has been placed on amiodarone of drip which seems to be controlling his rate reasonably at this time. He has been on p.o. 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 He is denying any palpitations, chest pain, or shortness of breath at this time. Review of Systems Constitutional: Constitutional: Denies chills, Denies fever(s), Denies headache(s) and Denies malaise Eyes: Eyes: Denies change in vision ENT: Reports Normal hearing present, Denies dizziness, Denies headache(s) and Denies hearing loss Cardiovascular: Cardiovascular: Denies chest pain, Denies chest pain at rest, Denies chest pain with activity, Denies syncope, Denies leg edema, Denies palpitations, Denies dyspnea and Denies dyspnea on exertion Respiratory: Respiratory: Denies cough, Denies dyspnea, Denies dyspnea on exertion and Denies wheezing Gastrointestinal: Gastrointestinal: Denies abdominal pain, Denies constipation and Denies diarrhea Genitourinary: Genitourinary: Denies hematuria and Denies dysuria Musculoskeletal: Musculoskeletal: Denies myalgias, Denies arthralgias and Denies muscle cramps Integumentary/Breasts: Skin/Breast: Denies wounds Neurologic: Reports Normal hearing present, Denies confusion, Denies dizziness, Denies syncope and Denies headache(s) Psychiatric: Psychiatric: Denies anxiety, Denies confusion and Denies depression Endocrine: Endocrine: Denies cold intolerance, Denies flushing, Denies heat intolerance and Denies palpitations Hematologic/Lymphatic: Hematologic/Lymphatic: Denies easy bleeding and Denies easy bruising Allergic/Immunologic: Allergic/Immunologic: Denies wheezing PMFSH Past Medical History Medical History Chronic anticoagulation 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 Family History Family His
[2022-08-24] MEDS: REMDESIVIR 100 MG/NS 250 ML 100 MG/250 ML BAG 250 MG IVPB (09:57)
--- NOTE | 2022-08-24 10:00 | PM.IMPN ---
Progress Note: A&P Assessment and Plan (1) Sepsis: Code(s): A41.9 - Sepsis, unspecified organism Status: Acute Assessment and Plan: Secondary to cellulitis, diabetic foot ulcer and abscess of left foot 10/22 bedside incision and drainage of left foot abscess by general surgery CT scan MPRESSION: 1. No fracture or other acute osseous abnormality at the left lower leg, foot or ankle. 2. Findings suggestive of diffuse cellulitis throughout the left lower leg and foot and ankle with shallow skin ulceration cephalad to the medial malleolus without underlying soft tissue gas, abscess or osteomyelitis. 3. 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 Wound care following 08/20: Blood cultures growing group B strep in 1/2 bottles 08/20: Wound cultures also growing group B strep 08/22: Repeat blood cultures have been sent and growing GPC chains 1/2 bottles -currently on Ancef, - vancomycin, cefepime and Flagyl have been discontinued (2) Atrial fibrillation with rapid ventricular response: Code(s): I48.91 - Unspecified atrial fibrillation Status: Acute Assessment and Plan: Patient currently on amiodarone infusion heart rate remains tachycardic Continue p.o. metoprolol but increase dose to q.8 hours Continue apixaban TSH was normal Check echocardiogram (3) Diabetic ketoacidosis: Code(s): E11.10 - Type 2 diabetes mellitus with ketoacidosis without coma Status: Acute Assessment and Plan: Patient presented with uncontrolled blood sugars and met criteria for for DKA Patient was treated with IV fluids and insulin infusion Patient has now been transitioned to subcutaneous insulin -on Lantus, I will decrease the dose after reviewing his blood sugars (4) Diabetic ulcer of left ankle: Code(s): E11.622 - Type 2 diabetes mellitus with other skin ulcer; L97.329 - Non-pressure chronic ulcer of left ankle with unspecified severity Status: Acute Assessment and Plan: See above (5) Abscess of left lower leg: Code(s): L02.416 - Cutaneous abscess of left lower limb Status: Acute Assessment and Plan: See above (6) COVID-19: Code(s): U07.1 - COVID-19 Status: Acute Assessment and Plan: Patient tested positive for COVID-19 but does not have COVID-19 pneumonia. He is vaccinated against COVID-19. Chest x-ray was clear Since patient has risk factors being uncontrolled diabetes and he is at High Risk of Progressing to Severe COVID-19 Paxlovid it is not available which I have confirmed pharmacy 08/21 discussed with patient the option of treating him with remdesivir explaining pros and cons and he is agreeable to proceed Patient was started IV remdesivir for 5 days or until discharge (7) Chronic deep vein thrombosis (DVT): Qualifiers: Affected thrombotic vein of extremity: tibial DVT location: lower extremity Laterality: left Qualified Code(s): I82.542 - Chronic embolism and thrombosis of left tibial vein Code(s): I82.509 - Chronic embolism and thrombosis of unspecified deep veins of unspecified lower extremity Status: Acute Assessment and Plan: Lower extremity Dopplers- IMPRESSION: 1.? Small amount of residual likely chronic deep venous thrombosis in the left posterior tibial vein with resolution of prior thrombus in the left posterior tibial and peroneal veins. 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
--- NOTE | 2022-08-24 10:35 | PCFNICU ---
ICU Rounding Note: Pt current nutrition is Diabetic consistent carb diet. Intakes 75-100% meals. Nutrition recommendation: Continue same goals and diet order. Last recorded weight is 88.2 kg. Bowel Motility: Last BM 08/21/22 Labs Reviewed: Hgb 11.7, Hct 35.6, Alb 2.0, Na 126, Cre 0.5, Glu 125 Meds Noted: Skin: L ankle diabetic ulcer Additional Notes: Intakes are good. Continue plan of care Monitoring intakes, weights, labs, meds, plan of care Follow up daily in ICU rounds while in ICU level care.
[2022-08-24 11:37] LABS: Glucose Point of Care 122 mg/dl (65-105)
[2022-08-24] MEDS: AMIODARONE 360 MG/D5W 200 ML 360 MG/200 ML BAG 16.67 MG IV CONT (14:07)
--- NOTE | 2022-08-24 16:08 | PM.PNGS ---
Progress Note: A&P Assessment and Plan (1) Abscess of left lower leg: Code(s): L02.416 - Cutaneous abscess of left lower limb Status: Acute Assessment and Plan: Continue daily packing changes. Will continue to monitor. (2) Diabetic ketoacidosis: Code(s): E11.10 - Type 2 diabetes mellitus with ketoacidosis without coma Status: Acute (3) Atrial fibrillation with rapid ventricular response: Code(s): I48.91 - Unspecified atrial fibrillation Status: Acute (4) Sepsis: Code(s): A41.9 - Sepsis, unspecified organism Status: Acute Subjective Subjective Date/Time Seen: 08/24/22 16:08 Interval history: Continuing to feel better. Minimal leg pain. Exam Extrem: Other: Packing removed and wound inspected. Wound has slight tracking with purulence drainage onto anterior surface of ankle. No other surrounding loculations or tracking noted. Wound packed with iodoform gauze and I ensured that packing was placed along the area where was tracking. Objective Data Vital Signs Vital Signs: Vital Signs - 24 hr 08/23/22 18:11 08/23/22 18:55 08/23/22 18:00 Temperature Pulse Rate 119 H 119 H 113 H Respiratory Rate Blood Pressure 126/65 126/65 Pulse Oximetry Oxygen Delivery Oxygen Flow Rate 08/23/22 20:00 08/23/22 20:00 08/23/22 20:00 Temperature 38.3 C H Pulse Rate 120 H 118 H Respiratory Rate 28 H Blood Pressure 102/57 L Pulse Oximetry 95 Oxygen Delivery Room Air Oxygen Flow Rate 08/23/22 22:00 08/23/22 22:19 08/24/22 00:10 Temperature Pulse Rate 119 H 110 H 101 H Respiratory Rate Blood Pressure 110/58 L Pulse Oximetry Oxygen Delivery Oxygen Flow Rate 08/24/22 00:10 08/24/22 00:00 08/24/22 00:00 Temperature 37.4 C Pulse Rate 107 H 110 H Respiratory Rate 25 H Blood Pressure 110/58 L 110/58 L Pulse Oximetry 97 97 Oxygen Delivery Nasal Cannula Oxygen Flow Rate 2 08/24/22 00:00 08/24/22 02:00 08/24/22 04:00 Temperature Pulse Rate 106 H 96 104 H Respiratory Rate Blood Pressure Pulse Oximetry Oxygen Delivery Oxygen Flow Rate 08/24/22 04:00 08/24/22 05:17 08/24/22 04:00 Temperature 36.9 C Pulse Rate 103 H 102 H Respiratory Rate 22 H Blood Pressure 104/65 Pulse Oximetry 96 94 Oxygen Delivery Nasal Cannula Oxygen Flow Rate 2 08/24/22 06:00 08/24/22 07:31 08/24/22 07:42 Temperature Pulse Rate 98 96 Respiratory Rate Blood Pressure 110/61 Pulse Oximetry 96 Oxygen Delivery Room Air Oxygen Flow Rate 08/24/22 08:00 08/24/22 08:24 08/24/22 07:36 Temperature 36.8 C Pulse Rate 99 101 H 95 Respiratory Rate 22 H Blood Pressure 113/76 110/61 Pulse Oximetry 90 Oxygen Delivery Oxygen Flow Rate 08/24/22 08:48 08/24/22 09:59 08/24/22 11:38 Temperature Pulse Rate 101 H Respiratory Rate Blood Pressure Pulse Oximetry Oxygen Delivery Nasal Cannula Room Air Oxygen Flow Rate 2 08/24/22 12:00 08/24/22 13:43 08/24/22 13:53 Temperature Pulse Rate 124 H 107 H 110 H Respiratory Rate Blood Pressure Pulse Oximetry Oxygen Delivery Oxygen Flow Rate 08/24/22 14:07 Temperature Pulse Rate 116 H Respiratory Rate Blood Pressure Pulse Oximetry Oxygen Delivery Oxygen Flow Rate Intake/Output Intake/Output: Intake & Output 08/21/22 08/22/22 08/23/22 08/24/22 23:59 23:59 23:59 23:59 Intake Total 5570 5301.667 3970 1340 Output Total 600 2100 1325 1225 Balance 4970 3201.667 2645 115 Meds/Results Medications: Active Medications Generic Name Dose Route Start Last Admin Trade Name Wilmerq PRN Reason Stop Dose Admin Amiodarone HCl 400 mg 08/24/22 17:00 Amiodarone Hcl 200 Mg Tablet PO BID YESSICA Apixaban 5 mg 08/21/22 09:00 08/24/22 08:00 Apixaban 5 Mg Tablet PO 5 mg BID YESSICA Administration Aspirin 81 mg 08/21/22 09:00 08/24/22 08:00
[2022-08-24 16:33] LABS: Glucose Point of Care 68 mg/dl (65-105)
--- NOTE | 2022-08-24 16:34 | PC.NURSE ---
hypoglycemic event: blood glucose 68, pt alert and oriented, pt given apple juice and dinner tray
[2022-08-24] MEDS: AMIODARONE HCL 200 MG TABLET 400 MG PO (16:54)
[2022-08-24] MEDS: INSULIN GLARGINE (*BKC) 100 UNITS/ML 60 UNITS SUB-Q (20:01)
[2022-08-24 20:09] LABS: Glucose Point of Care 153 mg/dl (65-105)
[2022-08-25] VITALS (14 sets, daily range): BP systolic 91–118; BP diastolic 56–80; PULSE 89–117; RESP 16–20; TEMP 36.6–37.1; O2SAT 94–98; BMI 27.4
[2022-08-25 04:44] LABS: Hematocrit 35.1 % (42.0-52.0); Hemoglobin 11.1 g/dL (14.0-18.0); Mean Corpuscular HGB Conc 31.6 g/dl (32-36); Mean Corpuscular Hemoglobin 24.3 pg (26-34); Mean Corpuscular Volume 76.8 fl (80-100); Mean Platelet Volume 10.3 fl (7.4-10.4); Platelet Count Result 204 k/mm3 (150-375); Red Blood Count 4.57 M/mm3 (4.6-6.20); Red Cell Distribution Width 15.9 % (11.5-14.5)
[2022-08-25 04:54] LABS: Alanine Aminotransferase 18 U/L (6-50); Albumin Level 2.1 g/dL (3.5-5.1); Alkaline Phosphatase 506 U/L (38-126); Anion Gap 2 mmol/L (8-16); Aspartate Amino Transferase 67 U/L (17-59); Bilirubin,Total 0.7 mg/dL (0.2-1.3); Blood Urea Nitrogen 15 mg/dL (9-20); Carbon Dioxide 29 mmol/L (22-30); Chloride 97 mmol/L (98-107); Estimated CRCL calculation 107 ml/min; Estimated Glomerular Filt Rate > 60; Glucose 71 mg/dL (65-110); INR 2.1; Magnesium 1.8 mg/dL (1.6-2.3); Potassium 3.8 mmol/L (3.4-5.0); Prothrombin Time 23.1 Seconds (11.1-14.7); Sodium 128 mmol/L (137-145)
[2022-08-25] MEDS: ceFAZolin 2 GM/D5W 50 ML 2 GM/50 ML BAG IVPB ×3 (05:59→22:08)
[2022-08-25] MEDS: METOPROLOL TARTRATE 25 MG TABLET PO ×3 (06:00→22:09)
[2022-08-25 06:14] LABS: Glucose Point of Care 72 mg/dl (65-105)
[2022-08-25 07:30] LABS: Glucose Point of Care 76 mg/dl (65-105)
[2022-08-25] MEDS: OMEGA 3 POLYUNSAT FATTY ACIDS 1 GM CAP 4 GM PO (08:19)
[2022-08-25] MEDS: PREGABALIN (*CRX) 75 MG CAPSULE 150 MG PO (08:19)
[2022-08-25] MEDS: ASPIRIN 81 MG ENTERIC TABLET PO (08:20)
[2022-08-25] MEDS: SODIUM CHLORIDE 1 GM TABLET PO ×2 (08:20→17:07)
[2022-08-25] MEDS: PRAVASTATIN SODIUM 20 MG TABLET 40 MG PO (08:20)
[2022-08-25] MEDS: TAMSULOSIN HCL 0.4 MG CAPSULE PO (08:20)
[2022-08-25] MEDS: AMIODARONE HCL 200 MG TABLET 400 MG PO ×2 (08:20→17:07)
[2022-08-25] MEDS: APIXABAN 5 MG TABLET PO ×2 (08:20→17:07)
[2022-08-25] MEDS: MONTELUKAST SODIUM 10 MG TABLET PO (08:20)
--- NOTE | 2022-08-25 09:17 | WPDINTPN ---
Progress Note: A&P Assessment and Plan (1) Sepsis: Code(s): A41.9 - Sepsis, unspecified organism Status: Acute Assessment and Plan: Secondary to cellulitis, diabetic foot ulcer and abscess of left foot 10/22 bedside incision and drainage of left foot abscess by general surgery CT scan MPRESSION: 1. No fracture or other acute osseous abnormality at the left lower leg, foot or ankle. 2. Findings suggestive of diffuse cellulitis throughout the left lower leg and foot and ankle with shallow skin ulceration cephalad to the medial malleolus without underlying soft tissue gas, abscess or osteomyelitis. 3. 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 Wound care following 08/20: Blood cultures growing group B strep in 1/2 bottles 08/20: Wound cultures also growing group B strep 08/22: Repeat blood cultures have been sent and group B Streptococcus in 1/2 bottles -currently on Ancef, - vancomycin, cefepime and Flagyl have been discontinued (2) Atrial fibrillation with rapid ventricular response: Code(s): I48.91 - Unspecified atrial fibrillation Status: Acute Assessment and Plan: Appreciate cardiology evaluation -patient was switched to p.o. amiodarone on 08/24 Continue p.o. metoprolol but increase dose to q.8 hours Continue apixaban TSH was normal -remains in AFib with better rate controlled, in the 90s to 100s -echocardiogram on 08/24 showed EF of 65% left ventricular diastolic function is indeterminate, right atrial chamber dimension is moderately enlarged, mild pulmonary hypertension with RVSP of 35 mm Hg (3) Diabetic ketoacidosis: Code(s): E11.10 - Type 2 diabetes mellitus with ketoacidosis without coma Status: Acute Assessment and Plan: Patient presented with uncontrolled blood sugars and met criteria for for DKA Patient was treated with IV fluids and insulin infusion Patient has now been transitioned to subcutaneous insulin -on Lantus, decreased the dose after reviewing his blood sugars -will continue to monitor closely with Accu-Cheks -continue sliding scale insulin (4) Diabetic ulcer of left ankle: Code(s): E11.622 - Type 2 diabetes mellitus with other skin ulcer; L97.329 - Non-pressure chronic ulcer of left ankle with unspecified severity Status: Acute Assessment and Plan: See above (5) Abscess of left lower leg: Code(s): L02.416 - Cutaneous abscess of left lower limb Status: Acute Assessment and Plan: See above (6) COVID-19: Code(s): U07.1 - COVID-19 Status: Acute Assessment and Plan: Patient tested positive for COVID-19 but does not have COVID-19 pneumonia. He is vaccinated against COVID-19. Chest x-ray was clear Since patient has risk factors being uncontrolled diabetes and he is at High Risk of Progressing to Severe COVID-19 Paxlovid it is not available which I have confirmed pharmacy 08/21 discussed with patient the option of treating him with remdesivir explaining pros and cons and he is agreeable to proceed Patient was started IV remdesivir for 5 days or until discharge (7) Chronic deep vein thrombosis (DVT): Qualifiers: Affected thrombotic vein of extremity: tibial DVT location: lower extremity Laterality: left Qualified Code(s): I82.542 - Chronic embolism and thrombosis of left tibial vein Code(s): I82.509 - Chronic embolism and thrombosis of unspecified deep veins of unspecified lower extremity Status: Acute Assessment and Plan: Lower extremity Dopplers- IMPRESSION: 1.? Small amount of residual likely chronic deep venous thrombosis in the left posterior tibial vein with resolution of prior thrombus in the left posterior tibial and peroneal veins. Continue Eliquis (8) Electrolyte abnormality: Code(s): E87.8 - Other disorders of electrolyte and fluid balance, not elsewhere classified Status: Acute Assessment and Plan:
--- NOTE | 2022-08-25 09:50 | PC.NURSE ---
This patient, John Warren, was received from ICU 3 on 08/25/22 at 0930. Patient/family oriented to unit policies and routines
--- NOTE | 2022-08-25 10:17 | PCDIET ---
This patient, John Warren, was received from [ICU 3 ] on 08/25/22 at 0900. Patient oriented to unit policies and routines. Patient in bed resting comfortably at this time with no complaints. Call light given to patient.
[2022-08-25] MEDS: REMDESIVIR 100 MG/NS 250 ML 100 MG/250 ML BAG 250 MG IVPB (10:47)
--- NOTE | 2022-08-25 11:06 | PM.PNGS ---
Progress Note: A&P Assessment and Plan (1) Abscess of left lower leg: Code(s): L02.416 - Cutaneous abscess of left lower limb Status: Acute Assessment and Plan: Two areas of tracking but both areas are able to be packed. Continue daily packing dressing changes and monitor. Continue IV antibiotics. (2) Diabetic ketoacidosis: Code(s): E11.10 - Type 2 diabetes mellitus with ketoacidosis without coma Status: Acute Assessment and Plan: Has been transitioned to subcutaneous insulin and transferred out of ICU this morning. (3) Atrial fibrillation with rapid ventricular response: Code(s): I48.91 - Unspecified atrial fibrillation Status: Acute (4) Sepsis: Code(s): A41.9 - Sepsis, unspecified organism Status: Acute Plan I have discussed the patient's case and plan of care with Dr. Martinez. Subjective Subjective Date/Time Seen: 08/25/22 11:06 Patient reports: feels better and afebrile (since 1999 on 08/23/22) Interval history: Patient was transferred out of ICU to med/surg floor this morning. He feels his left leg pain and swelling is overall improving. Main complaint is generalized weakness. Review of Systems Review of Systems: All systems reviewed & are unremarkable except as noted in HPI and below Exam Const: General: comfortable, no acute distress and alert Skin: Other: Packing removed from left lower medial leg wound, there is 4 cm tracking at 3 o'clock towards the anterior surface of the ankle still with purulence drainage and another 6 cm area of tracking proximally up the leg at 12 o'clock with purulence drainage. Wound again packed with iodoform gauze specifically packing both areas of tracking. Objective Data Vital Signs Vital Signs: Vital Signs - 24 hr 08/24/22 11:38 08/24/22 12:00 08/24/22 13:43 Temperature Pulse Rate 124 H 107 H Respiratory Rate Blood Pressure Pulse Oximetry Oxygen Delivery Room Air 08/24/22 13:53 08/24/22 14:07 08/24/22 16:00 Temperature Pulse Rate 110 H 116 H Respiratory Rate Blood Pressure Pulse Oximetry Oxygen Delivery Room Air 08/24/22 16:00 08/24/22 16:54 08/24/22 12:00 Temperature 98.4 F Pulse Rate 111 H 104 H 101 H Respiratory Rate 22 H Blood Pressure Pulse Oximetry 99 Oxygen Delivery 08/24/22 16:00 08/24/22 17:12 08/24/22 20:00 Temperature Pulse Rate 104 H 111 H 109 H Respiratory Rate 20 Blood Pressure 90/77 L Pulse Oximetry 99 Oxygen Delivery 08/24/22 20:00 08/24/22 21:06 08/24/22 22:00 Temperature 98.8 F Pulse Rate 109 H 103 H 108 H Respiratory Rate 20 Blood Pressure 112/71 Pulse Oximetry 98 Oxygen Delivery 08/25/22 00:00 08/25/22 00:00 08/25/22 02:00 Temperature 98.6 F Pulse Rate 92 92 102 H Respiratory Rate 18 Blood Pressure 91/63 L Pulse Oximetry 96 Oxygen Delivery 08/25/22 04:00 08/25/22 04:00 08/25/22 06:00 Temperature 98.8 F Pulse Rate 98 98 110 H Respiratory Rate 16 Blood Pressure 97/59 L Pulse Oximetry 94 Oxygen Delivery 08/25/22 06:00 08/25/22 06:22 08/25/22 08:00 Temperature 98.7 F 97.9 F Pulse Rate 110 H 89 Respiratory Rate 20 Blood Pressure 113/56 L 118/80 Pulse Oximetry 96 Oxygen Delivery 08/25/22 08:20 08/25/22 08:00 08/25/22 08:00 Temperature Pulse Rate 109 H 93 Respiratory Rate Blood Pressure Pulse Oximetry Oxygen Delivery Room Air Intake/Output Intake/Output: Intake & Output 08/22/22 08/23/22 08/24/22 08/25/22 23:59 23:59 23:59 23:59 Intake Total 5301.667 3970 1760 1050 Output Total 2100 1325 2325 1600 Balance 3201.667 2645 -565 -550 Meds/Results Medications: Active Medications Generic Name Dose Route Start Last Admin Trade Name Freq PRN Reason Stop Dose Admin Amiodarone HCl 400 mg 08/24/22 17:00 08/25/22 08:20 Amiodarone Hcl 200 Mg Tablet PO 400 mg BID YESSICA Administration Apixa
--- NOTE | 2022-08-25 11:50 | PCOTNOTE ---
Attempted to see pt. for occupational therapy evaluation. Pt. has recent discovery of DVT, and may be unsafe to mobilize at this time. Spoke with hospitalist, Antony Hoffman, who has yet to see pt. and review recent findings. Awaiting hospitalist review. Nursing updated. Following.
[2022-08-25 12:29] LABS: Glucose Point of Care 116 mg/dl (65-105)
[2022-08-25] MEDS: INSULIN ASPART (*BKC) 100 UNITS/ML 12 UNITS SUB-Q ×2 (12:52→17:45)
[2022-08-25 17:12] LABS: Glucose Point of Care 146 mg/dl (65-105)
[2022-08-25 22:15] LABS: Glucose Point of Care 75 mg/dl (65-105)
[2022-08-26] VITALS (14 sets, daily range): BP systolic 96–99; BP diastolic 48–63; PULSE 70–117; RESP 16–20; TEMP 36.8–37.7; O2SAT 95–97
[2022-08-26 00:09] LABS: Glucose Point of Care 95 mg/dl (65-105)
[2022-08-26] MEDS: METOPROLOL TARTRATE 25 MG TABLET PO ×3 (06:49→21:29)
[2022-08-26] MEDS: ceFAZolin 2 GM/D5W 50 ML 2 GM/50 ML BAG IVPB ×3 (06:49→21:29)
[2022-08-26 06:56] LABS: Glucose Point of Care 76 mg/dl (65-105)
[2022-08-26 06:57] LABS: Hematocrit 36.5 % (42.0-52.0); Hemoglobin 11.3 g/dL (14.0-18.0); Mean Corpuscular Hemoglobin 24.6 pg (26-34); Mean Corpuscular Volume 79.5 fl (80-100); Mean Platelet Volume 10.8 fl (7.4-10.4); Platelet Count Result 247 k/mm3 (150-375); Red Blood Count 4.59 M/mm3 (4.6-6.20); Red Cell Distribution Width 16.1 % (11.5-14.5); White Blood Count 6.7 K/mm3 (4.5-10.0)
[2022-08-26 07:01] LABS: Alanine Aminotransferase 14 U/L (6-50); Alkaline Phosphatase 371 U/L (38-126); Anion Gap 2 mmol/L (8-16); Aspartate Amino Transferase 45 U/L (17-59); Bilirubin,Total 0.5 mg/dL (0.2-1.3); Blood Urea Nitrogen 16 mg/dL (9-20); Calcium 6.9 mg/dL (8.4-10.2); Carbon Dioxide 28 mmol/L (22-30); Chloride 96 mmol/L (98-107); Estimated CRCL calculation 126 ml/min; Estimated Glomerular Filt Rate > 60; Glucose 69 mg/dL (65-110); Magnesium 1.9 mg/dL (1.6-2.3); Potassium 3.3 mmol/L (3.4-5.0); Sodium 126 mmol/L (137-145)
[2022-08-26 09:01] LABS: Glucose Point of Care 65 mg/dl (65-105)
[2022-08-26] MEDS: PREGABALIN (*CRX) 75 MG CAPSULE 150 MG PO (09:33)
[2022-08-26] MEDS: PRAVASTATIN SODIUM 20 MG TABLET 40 MG PO (09:33)
[2022-08-26] MEDS: TAMSULOSIN HCL 0.4 MG CAPSULE PO (09:34)
[2022-08-26] MEDS: ASPIRIN 81 MG ENTERIC TABLET PO (09:34)
[2022-08-26] MEDS: AMIODARONE HCL 200 MG TABLET 400 MG PO ×2 (09:34→17:48)
[2022-08-26] MEDS: MONTELUKAST SODIUM 10 MG TABLET PO (09:34)
[2022-08-26] MEDS: APIXABAN 5 MG TABLET PO ×2 (09:34→17:47)
[2022-08-26] MEDS: SODIUM CHLORIDE 1 GM TABLET PO ×2 (09:34→17:47)
[2022-08-26] MEDS: OMEGA 3 POLYUNSAT FATTY ACIDS 1 GM CAP 4 GM PO (09:34)
--- NOTE | 2022-08-26 10:54 | PCOTNOTE ---
OT spoke with MD, who reports patient is able to work with therapy at this time.
--- NOTE | 2022-08-26 11:19 | PM.PNGS ---
Progress Note: A&P Assessment and Plan (1) Abscess of left lower leg: Code(s): L02.416 - Cutaneous abscess of left lower limb Status: Acute Assessment and Plan: Pain and swelling continues to improve. Two areas of tracking but both areas are able to be packed. Continue daily packing dressing changes and monitor. Continue IV antibiotics. (2) Diabetic ketoacidosis: Code(s): E11.10 - Type 2 diabetes mellitus with ketoacidosis without coma Status: Acute (3) Atrial fibrillation with rapid ventricular response: Code(s): I48.91 - Unspecified atrial fibrillation Status: Acute (4) Sepsis: Code(s): A41.9 - Sepsis, unspecified organism Status: Acute Plan I have discussed the patient's case and plan of care with Dr. Martinez. Subjective Subjective Date/Time Seen: 08/26/22 09:39 Patient reports: no new complaints Interval history: Overall feels his left lower leg pain and swelling continues to improve daily. No acute changes overnight. Temp slightly elevated at 99.9F this morning, HR 104. Review of Systems Review of Systems: All systems reviewed & are unremarkable except as noted in HPI and below Exam Const: General: no acute distress and alert Orientation/consciousness: patient oriented x3 Skin: Other: Packing removed from left lower medial leg wound, there are two areas of tracking with purulent drainage, one 4 cm tracking at 3 o'clock towards the anterior surface of the ankle and another 6 cm area of tracking proximally up the leg at 12 o'clock. Overall redness and swelling improved. Wound again packed with iodoform gauze specifically packing both areas of tracking. Objective Data Vital Signs Vital Signs: Vital Signs - 24 hr 08/25/22 12:00 08/25/22 12:00 08/25/22 15:06 Temperature 98.2 F Pulse Rate 96 99 90 Respiratory Rate 16 Blood Pressure 99/59 L Pulse Oximetry 96 Oxygen Delivery 08/25/22 16:00 08/25/22 17:07 08/25/22 16:00 Temperature 98.8 F Pulse Rate 107 H 107 H 107 H Respiratory Rate 18 Blood Pressure 110/57 L Pulse Oximetry 97 Oxygen Delivery 08/25/22 22:09 08/25/22 23:37 08/25/22 20:00 Temperature 98.8 F Pulse Rate 117 H 108 H Respiratory Rate 16 Blood Pressure 96/63 L Pulse Oximetry 98 Oxygen Delivery Room Air 08/26/22 00:00 08/25/22 20:00 08/26/22 00:00 Temperature 98.2 F Pulse Rate 70 103 H 108 H Respiratory Rate 18 Blood Pressure 98/60 L Pulse Oximetry 96 Oxygen Delivery 08/26/22 04:00 08/26/22 05:57 08/26/22 06:49 Temperature 99.9 F H Pulse Rate 104 H 104 H 96 Respiratory Rate 16 Blood Pressure 98/63 L Pulse Oximetry 97 Oxygen Delivery 08/26/22 09:34 Temperature Pulse Rate 101 H Respiratory Rate Blood Pressure Pulse Oximetry Oxygen Delivery Intake/Output Intake/Output: Intake & Output 08/23/22 08/24/22 08/25/22 08/26/22 23:59 23:59 23:59 23:59 Intake Total 3970 1760 2030 650 Output Total 1325 2325 1600 1850 Balance 2645 565 430 -1200 Meds/Results Medications: Active Medications Generic Name Dose Route Start Last Admin Trade Name Wilmerq PRN Reason Stop Dose Admin Amiodarone HCl 400 mg 08/24/22 17:00 08/26/22 09:34 Amiodarone Hcl 200 Mg Tablet PO 400 mg BID YESSICA Administration Apixaban 5 mg 08/21/22 09:00 08/26/22 09:34 Apixaban 5 Mg Tablet PO 5 mg BID YESSICA Administration Aspirin 81 mg 08/21/22 09:00 08/26/22 09:34 Aspirin 81 Mg Enteric Tablet PO 81 mg DAILY YESSICA Administration Dextrose 12.5 gm 08/21/22 08:14 Dextrose 50% 25 Gm/50 Ml Syringe IV PUSH PRN PRN Hypoglycemia Protocol Fish Oil 4 gm 08/21/22 09:00 08/26/22 09:34 [place] 3 Polyunsat Fatty Acids 1 Gm Cap PO 4 gm DAILY YESSICA Administration Glucagon 1 mg 08/21/22 08:14 Glucagon For Inj 1 Mg Vial IM PRN PRN Hypoglycemia Protocol Glucose 15 gm 08/21/22 08:14 Glucose Oral Gel 1
[2022-08-26 12:43] LABS: Glucose Point of Care 131 mg/dl (65-105)
[2022-08-26 12:43] LABS: Glucose Point of Care 88 mg/dl (65-105)
--- NOTE | 2022-08-26 14:08 | P.PNIM_ITS ---
Progress Note: A&P Assessment and Plan (1) Sepsis: Code(s): A41.9 - Sepsis, unspecified organism Status: Acute Assessment and Plan: Secondary to cellulitis, diabetic foot ulcer and abscess of left foot 10/22 bedside incision and drainage of left foot abscess by general surgery CT scan MPRESSION: 1. No fracture or other acute osseous abnormality at the left lower leg, foot or ankle. 2. Findings suggestive of diffuse cellulitis throughout the left lower leg and foot and ankle with shallow skin ulceration cephalad to the medial malleolus without underlying soft tissue gas, abscess or osteomyelitis. 3. 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 Wound care following 08/20: Blood cultures growing group B strep in 1/2 bottles 08/20: Wound cultures also growing group B strep 08/22: Repeat blood cultures have been sent and group B Streptococcus in 1/2 bottles -currently on Ancef, - vancomycin, cefepime and Flagyl have been discontinued Repeat blood cultures (2) Atrial fibrillation with rapid ventricular response: Code(s): I48.91 - Unspecified atrial fibrillation Status: Acute Assessment and Plan: Appreciate cardiology evaluation -patient was switched to p.o. amiodarone on 08/24 Continue p.o. metoprolol but increase dose to q.8 hours Continue apixaban TSH was normal -remains in AFib with better rate controlled, in the 90s to 100s -echocardiogram on 08/24 showed EF of 65% left ventricular diastolic function is indeterminate, right atrial chamber dimension is moderately enlarged, mild pulmonary hypertension with RVSP of 35 mm Hg (3) Diabetic ketoacidosis: Code(s): E11.10 - Type 2 diabetes mellitus with ketoacidosis without coma Status: Acute Assessment and Plan: Patient presented with uncontrolled blood sugars and met criteria for for DKA Patient was treated with IV fluids and insulin infusion Patient has now been transitioned to subcutaneous insulin -on Lantus, decreased the dose after reviewing his blood sugars -will continue to monitor closely with Accu-Cheks -continue sliding scale insulin (4) Diabetic ulcer of left ankle: Code(s): E11.622 - Type 2 diabetes mellitus with other skin ulcer; L97.329 - Non-pressure chronic ulcer of left ankle with unspecified severity Status: Acute Assessment and Plan: See above (5) Abscess of left lower leg: Code(s): L02.416 - Cutaneous abscess of left lower limb Status: Acute Assessment and Plan: See above Continue wound care (6) COVID-19: Code(s): U07.1 - COVID-19 Status: Acute Assessment and Plan: Patient tested positive for COVID-19 but does not have COVID-19 pneumonia. He is vaccinated against COVID-19. Chest x-ray was clear Since patient has risk factors being uncontrolled diabetes and he is at High Risk of Progressing to Severe COVID-19 Paxlovid it is not available which I have confirmed pharmacy 08/21 discussed with patient the option of treating him with remdesivir explaining pros and cons and he is agreeable to proceed Patient was started IV remdesivir for 5 days or until discharge. 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
[2022-08-26 17:32] LABS: Glucose Point of Care 197 mg/dl (65-105)
[2022-08-26] MEDS: INSULIN ASPART (*BKC) 100 UNITS/ML 8 UNITS SUB-Q (17:44)
[2022-08-26] MEDS: INSULIN GLARGINE (*BKC) 100 UNITS/ML 40 UNITS SUB-Q (21:26)
[2022-08-26 21:39] LABS: Glucose Point of Care 186 mg/dl (65-105)
[2022-08-27] VITALS (12 sets, daily range): BP systolic 93–106; BP diastolic 50–60; PULSE 90–112; RESP 18–20; TEMP 36.4–37.6; O2SAT 92–96
[2022-08-27] MEDS: ceFAZolin 2 GM/D5W 50 ML 2 GM/50 ML BAG IVPB ×3 (06:08→21:50)
[2022-08-27] MEDS: METOPROLOL TARTRATE 25 MG TABLET PO ×2 (06:08→17:37)
[2022-08-27 06:48] LABS: Glucose Point of Care 88 mg/dl (65-105)
[2022-08-27 07:03] LABS: Hematocrit 34.1 % (42.0-52.0); Hemoglobin 10.8 g/dL (14.0-18.0); Mean Corpuscular HGB Conc 31.7 g/dl (32-36); Mean Corpuscular Hemoglobin 24.3 pg (26-34); Mean Corpuscular Volume 76.8 fl (80-100); Mean Platelet Volume 10.5 fl (7.4-10.4); Platelet Count Result 233 k/mm3 (150-375); Red Blood Count 4.44 M/mm3 (4.6-6.20)
[2022-08-27 07:13] LABS: Alanine Aminotransferase 12 U/L (6-50); Albumin Level 2.1 g/dL (3.5-5.1); Alkaline Phosphatase 307 U/L (38-126); Anion Gap 2 mmol/L (8-16); Aspartate Amino Transferase 44 U/L (17-59); Bilirubin,Total 0.6 mg/dL (0.2-1.3); Blood Urea Nitrogen 15 mg/dL (9-20); Calcium 6.8 mg/dL (8.4-10.2); Carbon Dioxide 29 mmol/L (22-30); Chloride 97 mmol/L (98-107); Estimated CRCL calculation 126 ml/min; Estimated Glomerular Filt Rate > 60; Glucose 84 mg/dL (65-110); Magnesium 2.1 mg/dL (1.6-2.3); Potassium 3.7 mmol/L (3.4-5.0); Sodium 128 mmol/L (137-145)
[2022-08-27 07:56] LABS: Glucose Point of Care 90 mg/dl (65-105)
--- NOTE | 2022-08-27 08:35 | PM.PNCARD ---
Progress Note: A&P Assessment and Plan (1) Atrial fibrillation with rapid ventricular response: Code(s): I48.91 - Unspecified atrial fibrillation Status: Acute Assessment and Plan: History of PAF, has been in atrial fibrillation since admission. Rate well controlled on p.o. amiodarone and metoprolol. Will decrease amiodarone to 400mg daily at this point. Should be decreased to 200mg daily at time of discharge. I will shift his beta alec to a long acting form for dosing convenience. He is anticoagulated with apixaban. He is already established with a aircraft engine dismantler, Dr. Zaragoza, who he will follow up with upon discharge. Cardiology will sign off please do not hesitate to contact us with any further questions. (2) Abscess of left lower leg: Code(s): L02.416 - Cutaneous abscess of left lower limb Status: Acute Assessment and Plan: Management per general surgery (3) Hypertension: Code(s): I10 - Essential (primary) hypertension Status: Acute Assessment and Plan: At goal. Subjective Date/time seen: 08/27/22 08:35 Cardiology follow up for atrial fibrillation Patient is feeling well this morning. No shortness of breath or palpitations. He remains in atrial fibrillation rate controlled. Review of Systems Constitutional: Constitutional: Denies chills, Denies fever(s), Denies headache(s) and Denies malaise Eyes: Eyes: Denies change in vision ENT: Reports Normal hearing present, Denies dizziness, Denies headache(s) and Denies hearing loss Cardiovascular: Cardiovascular: Denies chest pain, Denies chest pain at rest, Denies chest pain with activity, Denies syncope, Denies leg edema, Denies palpitations, Denies dyspnea and Denies dyspnea on exertion Respiratory: Respiratory: Denies cough, Denies dyspnea, Denies dyspnea on exertion and Denies wheezing Gastrointestinal: Gastrointestinal: Denies abdominal pain, Denies constipation and Denies diarrhea Genitourinary: Genitourinary: Denies hematuria and Denies dysuria Musculoskeletal: Musculoskeletal: Denies myalgias, Denies arthralgias and Denies muscle cramps Integumentary/Breasts: Skin/Breast: Denies wounds Neurologic: Reports Normal hearing present, Denies confusion, Denies dizziness, Denies syncope and Denies headache(s) Psychiatric: Psychiatric: Denies anxiety, Denies confusion and Denies depression Endocrine: Endocrine: Denies cold intolerance, Denies flushing, Denies heat intolerance and Denies palpitations Hematologic/Lymphatic: Hematologic/Lymphatic: Denies easy bleeding and Denies easy bruising Allergic/Immunologic: Allergic/Immunologic: Denies wheezing Exam Const: General: comfortable, no acute distress, alert and awake; No confusion Orientation/consciousness: patient oriented x3 and No confusion HENMT: Head: normal to inspection Eyes: General: appearance normal, both eyes and all related structures Pupils: Equal, round and reactive pupils present Neck: Neck: normal visual inspection, supple and no JVD Carotids: normal carotid upstroke Resp: Effort & Inspection: normal respiratory effort Auscultation: clear to auscultation bilaterally Cardio: Rate: regular rate Rhythm: abnormal rhythm irregularly irregular Heart sounds: S1 normal heart sound present, S2 normal heart sound present and no murmurs GI: Auscultation: normal bowel sounds Skin: General skin exam: normal color Neuro: General: patient oriented x3 and No confusion Cranial nerves: Yes Equal, round and reactive pupils present and Yes Normal hearing present Extrem: Other: LLE with some edema and erythema. Chronic venous stasis changes noted Psych: Appearance: grossly normal Mental Status: mental status grossly normal Objective Data Vital Signs Vital Signs: Vital Signs - 24 hr 08/26/22 09:34 08/26/22 11:06 08/26/22 15:36 Temperature Pulse Rate 101 H Respiratory Rate Blood Pressure 96/48 L Pulse Oximetry
[2022-08-27] MEDS: OMEGA 3 POLYUNSAT FATTY ACIDS 1 GM CAP 4 GM PO (09:18)
[2022-08-27] MEDS: PRAVASTATIN SODIUM 20 MG TABLET 40 MG PO (09:18)
[2022-08-27] MEDS: MONTELUKAST SODIUM 10 MG TABLET PO (09:19)
[2022-08-27] MEDS: APIXABAN 5 MG TABLET PO ×2 (09:19→17:38)
[2022-08-27] MEDS: ASPIRIN 81 MG ENTERIC TABLET PO (09:19)
[2022-08-27] MEDS: TAMSULOSIN HCL 0.4 MG CAPSULE PO (09:19)
[2022-08-27] MEDS: PREGABALIN (*CRX) 75 MG CAPSULE 150 MG PO (09:20)
[2022-08-27] MEDS: SODIUM CHLORIDE 1 GM TABLET PO ×2 (09:20→17:37)
[2022-08-27 11:40] LABS: Glucose Point of Care 128 mg/dl (65-105)
[2022-08-27 16:36] LABS: Glucose Point of Care 240 mg/dl (65-105)
[2022-08-27] MEDS: INSULIN ASPART (*BKC) 100 UNITS/ML SUB-Q ×2 (17:38→22:02)
[2022-08-27] MEDS: INSULIN ASPART (*BKC) 100 UNITS/ML 8 UNITS SUB-Q (17:38)
--- NOTE | 2022-08-27 18:07 | PM.IMPN ---
Progress Note: A&P Assessment and Plan (1) Sepsis: Code(s): A41.9 - Sepsis, unspecified organism Status: Acute Assessment and Plan: Secondary to cellulitis, diabetic foot ulcer and abscess of left foot 10/22 bedside incision and drainage of left foot abscess by general surgery CT scan MPRESSION: 1. No fracture or other acute osseous abnormality at the left lower leg, foot or ankle. 2. Findings suggestive of diffuse cellulitis throughout the left lower leg and foot and ankle with shallow skin ulceration cephalad to the medial malleolus without underlying soft tissue gas, abscess or osteomyelitis. 3. 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 Wound care following 08/20: Blood cultures growing group B strep in 1/2 bottles 08/20: Wound cultures also growing group B strep 08/22: Repeat blood cultures have been sent and group B Streptococcus in 1/2 bottles -currently on Ancef, - vancomycin, cefepime and Flagyl have been discontinued Repeat blood cultures 08/26: Negative to date (2) Atrial fibrillation with rapid ventricular response: Code(s): I48.91 - Unspecified atrial fibrillation Status: Acute Assessment and Plan: Appreciate cardiology evaluation -patient was switched to p.o. amiodarone on 08/24 Continue p.o. metoprolol but increase dose to q.8 hours Continue apixaban TSH was normal -remains in AFib with better rate controlled, in the 90s to 100s -echocardiogram on 08/24 showed EF of 65% left ventricular diastolic function is indeterminate, right atrial chamber dimension is moderately enlarged, mild pulmonary hypertension with RVSP of 35 mm Hg (3) Diabetic ketoacidosis: Code(s): E11.10 - Type 2 diabetes mellitus with ketoacidosis without coma Status: Acute Assessment and Plan: Patient presented with uncontrolled blood sugars and met criteria for for DKA Patient was treated with IV fluids and insulin infusion Patient has now been transitioned to subcutaneous insulin -on Lantus, decreased the dose after reviewing his blood sugars -will continue to monitor closely with Accu-Cheks -continue sliding scale insulin (4) Diabetic ulcer of left ankle: Code(s): E11.622 - Type 2 diabetes mellitus with other skin ulcer; L97.329 - Non-pressure chronic ulcer of left ankle with unspecified severity Status: Acute Assessment and Plan: See above (5) Abscess of left lower leg: Code(s): L02.416 - Cutaneous abscess of left lower limb Status: Acute Assessment and Plan: See above Continue wound care (6) COVID-19: Code(s): U07.1 - COVID-19 Status: Acute Assessment and Plan: Patient tested positive for COVID-19 but does not have COVID-19 pneumonia. He is vaccinated against COVID-19. Chest x-ray was clear Since patient has risk factors being uncontrolled diabetes and he is at High Risk of Progressing to Severe COVID-19 Paxlovid it is not available which I have confirmed pharmacy 08/21 discussed with patient the option of treating him with remdesivir explaining pros and cons and he is agreeable to proceed Patient was started IV remdesivir for 5 days or until discharge. 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 Small amount of residual likely chronic deep venous thrombosis in the left posterior tibial vein with resolution of prior thrombus in the left posterior tibial and peroneal veins. Continue Eliquis Upper extremity venous duplex with left cephalic vein thrombosis
[2022-08-27] MEDS: INSULIN GLARGINE (*BKC) 100 UNITS/ML 40 UNITS SUB-Q (22:02)
[2022-08-27 22:52] LABS: Glucose Point of Care 213 mg/dl (65-105)
[2022-08-28] VITALS (14 sets, daily range): BP systolic 102–117; BP diastolic 56–64; PULSE 92–113; RESP 16–18; TEMP 36.6–37.3; O2SAT 90–99
[2022-08-28] MEDS: ceFAZolin 2 GM/D5W 50 ML 2 GM/50 ML BAG IVPB ×2 (05:19→13:25)
--- NOTE | 2022-08-28 06:27 | PC.NURSE ---
lab rn reported pt stick on L hand prior to assistance drawing blood
[2022-08-28 07:16] LABS: Basophils Percent Auto 0.3 % (0.2-1.2); Eosinophils Absolute Auto 0.1 K/mm3 (0-0.3); Eosinophils Percent Auto 1.2 % (0-4.4); Hemoglobin 10.8 g/dL (14.0-18.0); Immature Granulocyte Absolute 0.06 K/mm3 (0.00-0.031); Lymphocytes Absolute Auto 1.12 K/mm3 (0.9-3.2); Mean Corpuscular HGB Conc 30.9 g/dl (32-36); Mean Corpuscular Hemoglobin 24.2 pg (26-34); Mean Corpuscular Volume 78.5 fl (80-100); Mean Platelet Volume 10.1 fl (7.4-10.4); Monocytes Absolute Auto 0.5 K/mm3 (0.1-0.6); Monocytes Percent Auto 8.3 % (2.6-8.5); Neutrophils Absolute Auto 4.1 K/mm3 (1.3-6.7); Neutrophils Percent Auto 70.2 % (45.5-73.1); Platelet Count Result 271 k/mm3 (150-375); Red Blood Count 4.46 M/mm3 (4.6-6.20); Red Cell Distribution Width 15.9 % (11.5-14.5); White Blood Count 5.9 K/mm3 (4.5-10.0)
[2022-08-28 07:30] LABS: Alanine Aminotransferase 13 U/L (6-50); Albumin Level 2.1 g/dL (3.5-5.1); Alkaline Phosphatase 294 U/L (38-126); Anion Gap 0 mmol/L (8-16); Aspartate Amino Transferase 45 U/L (17-59); Bilirubin,Total 0.5 mg/dL (0.2-1.3); Blood Urea Nitrogen 14 mg/dL (9-20); Calcium 6.9 mg/dL (8.4-10.2); Carbon Dioxide 31 mmol/L (22-30); Chloride 100 mmol/L (98-107); Estimated CRCL calculation 126 ml/min; Estimated Glomerular Filt Rate > 60; Glucose 79 mg/dL (65-110); Magnesium 2.1 mg/dL (1.6-2.3); Potassium 3.9 mmol/L (3.4-5.0); Sodium 131 mmol/L (137-145)
[2022-08-28 08:16] LABS: Glucose Point of Care 84 mg/dl (65-105)
[2022-08-28] MEDS: MONTELUKAST SODIUM 10 MG TABLET PO (08:42)
[2022-08-28] MEDS: SODIUM CHLORIDE 1 GM TABLET PO ×2 (08:42→16:54)
[2022-08-28] MEDS: ASPIRIN 81 MG ENTERIC TABLET PO (08:42)
[2022-08-28] MEDS: METOPROLOL SUCCINATE EXT REL 25 MG, METOPROLOL SUCCINATE EXT REL 50 MG 75 MG PO (08:42)
[2022-08-28] MEDS: APIXABAN 5 MG TABLET PO ×2 (08:43→16:54)
[2022-08-28] MEDS: PREGABALIN (*CRX) 75 MG CAPSULE 150 MG PO (08:43)
[2022-08-28] MEDS: AMIODARONE HCL 200 MG TABLET 400 MG PO (08:43)
[2022-08-28] MEDS: OMEGA 3 POLYUNSAT FATTY ACIDS 1 GM CAP 4 GM PO (08:43)
[2022-08-28] MEDS: PRAVASTATIN SODIUM 20 MG TABLET 40 MG PO (08:43)
[2022-08-28] MEDS: TAMSULOSIN HCL 0.4 MG CAPSULE PO (08:43)
[2022-08-28 11:39] LABS: Glucose Point of Care 91 mg/dl (65-105)
--- NOTE | 2022-08-28 15:31 | PM.IMPN ---
Progress Note: A&P Assessment and Plan (1) Sepsis: Code(s): A41.9 - Sepsis, unspecified organism Status: Acute Assessment and Plan: Secondary to cellulitis, diabetic foot ulcer and abscess of left foot 10/22 bedside incision and drainage of left foot abscess by general surgery CT scan MPRESSION: 1. No fracture or other acute osseous abnormality at the left lower leg, foot or ankle. 2. Findings suggestive of diffuse cellulitis throughout the left lower leg and foot and ankle with shallow skin ulceration cephalad to the medial malleolus without underlying soft tissue gas, abscess or osteomyelitis. 3. 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 Wound care following 08/20: Blood cultures growing group B strep in 1/2 bottles 08/20: Wound cultures also growing group B strep 08/22: Repeat blood cultures have been sent and group B Streptococcus in 1/2 bottles -currently on Ancef, - vancomycin, cefepime and Flagyl have been discontinued Repeat blood cultures 08/26: Negative to date Will switch antibiotic to ceftriaxone 2 g daily. Need 2 weeks from negative blood culture from 08/26/2022. Due to persistent bacteremia will get TTE (2) Atrial fibrillation with rapid ventricular response: Code(s): I48.91 - Unspecified atrial fibrillation Status: Acute Assessment and Plan: Appreciate cardiology evaluation -patient was switched to p.o. amiodarone on 08/24 Continue p.o. metoprolol but increase dose to q.8 hours Continue apixaban TSH was normal -remains in AFib with better rate controlled, in the 90s to 100s -echocardiogram on 08/24 showed EF of 65% left ventricular diastolic function is indeterminate, right atrial chamber dimension is moderately enlarged, mild pulmonary hypertension with RVSP of 35 mm Hg (3) Diabetic ketoacidosis: Code(s): E11.10 - Type 2 diabetes mellitus with ketoacidosis without coma Status: Acute Assessment and Plan: Patient presented with uncontrolled blood sugars and met criteria for for DKA Patient was treated with IV fluids and insulin infusion Patient has now been transitioned to subcutaneous insulin -on Lantus, decreased the dose after reviewing his blood sugars -will continue to monitor closely with Accu-Cheks -continue sliding scale insulin (4) Diabetic ulcer of left ankle: Code(s): E11.622 - Type 2 diabetes mellitus with other skin ulcer; L97.329 - Non-pressure chronic ulcer of left ankle with unspecified severity Status: Acute Assessment and Plan: See above (5) Abscess of left lower leg: Code(s): L02.416 - Cutaneous abscess of left lower limb Status: Acute Assessment and Plan: See above Continue wound care (6) COVID-19: Code(s): U07.1 - COVID-19 Status: Acute Assessment and Plan: Patient tested positive for COVID-19 but does not have COVID-19 pneumonia. He is vaccinated against COVID-19. Chest x-ray was clear Since patient has risk factors being uncontrolled diabetes and he is at High Risk of Progressing to Severe COVID-19 Paxlovid it is not available which I have confirmed pharmacy 08/21 discussed with patient the option of treating him with remdesivir explaining pros and cons and he is agreeable to proceed Patient was started IV remdesivir for 5 days or until discharge. 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 Small amount of residual likely chronic deep venous thrombosis in the left posterior tibial vein with resolution
[2022-08-28 16:59] LABS: Glucose Point of Care 136 mg/dl (65-105)
[2022-08-28] MEDS: cefTRIAXone 2 GM in SODIUM CHLORIDE 0.9% IV 100 ML 200 ML IVPB (20:15)
[2022-08-28] MEDS: INSULIN GLARGINE (*BKC) 100 UNITS/ML 40 UNITS SUB-Q (20:36)
[2022-08-28 20:46] LABS: Glucose Point of Care 179 mg/dl (65-105)
[2022-08-29] VITALS (11 sets, daily range): BP systolic 89–110; BP diastolic 52–67; PULSE 58–118; RESP 17–18; TEMP 36.6–37.6; O2SAT 93–100
[2022-08-29 06:45] LABS: Basophils Percent Auto 0.2 % (0.2-1.2); Eosinophils Absolute Auto 0.1 K/mm3 (0-0.3); Eosinophils Percent Auto 1.4 % (0-4.4); Hematocrit 36.5 % (42.0-52.0); Hemoglobin 11.2 g/dL (14.0-18.0); Immature Granulocyte Absolute 0.04 K/mm3 (0.00-0.031); Immature Granulocyte Percent A 0.7 % (0-0.5); Lymphocytes Absolute Auto 1.19 K/mm3 (0.9-3.2); Lymphocytes Percent Auto 21.3 % (18.3-44.2); Mean Corpuscular HGB Conc 30.7 g/dl (32-36); Mean Corpuscular Hemoglobin 24.3 pg (26-34); Mean Corpuscular Volume 79.2 fl (80-100); Mean Platelet Volume 9.9 fl (7.4-10.4); Monocytes Absolute Auto 0.5 K/mm3 (0.1-0.6); Monocytes Percent Auto 9.3 % (2.6-8.5); Neutrophils Absolute Auto 3.8 K/mm3 (1.3-6.7); Neutrophils Percent Auto 67.1 % (45.5-73.1); Platelet Count Result 254 k/mm3 (150-375); Red Blood Count 4.61 M/mm3 (4.6-6.20); Red Cell Distribution Width 16.2 % (11.5-14.5); White Blood Count 5.6 K/mm3 (4.5-10.0)
[2022-08-29 07:36] LABS: Alanine Aminotransferase 12 U/L (6-50); Albumin Level 2.2 g/dL (3.5-5.1); Alkaline Phosphatase 254 U/L (38-126); Anion Gap 0 mmol/L (8-16); Aspartate Amino Transferase 52 U/L (17-59); Bilirubin,Total 0.4 mg/dL (0.2-1.3); Blood Urea Nitrogen 15 mg/dL (9-20); Calcium 6.9 mg/dL (8.4-10.2); Carbon Dioxide 32 mmol/L (22-30); Chloride 97 mmol/L (98-107); Estimated CRCL calculation 93 ml/min; Estimated Glomerular Filt Rate > 60; Glucose 153 mg/dL (65-110); Magnesium 2.1 mg/dL (1.6-2.3); Potassium 4.2 mmol/L (3.4-5.0); Sodium 129 mmol/L (137-145)
[2022-08-29 07:43] LABS: Glucose Point of Care 175 mg/dl (65-105)
[2022-08-29] MEDS: AMIODARONE HCL 200 MG TABLET 400 MG PO (08:54)
[2022-08-29] MEDS: TAMSULOSIN HCL 0.4 MG CAPSULE PO (08:54)
[2022-08-29] MEDS: PRAVASTATIN SODIUM 20 MG TABLET 40 MG PO (08:54)
[2022-08-29] MEDS: METOPROLOL SUCCINATE EXT REL 25 MG, METOPROLOL SUCCINATE EXT REL 50 MG 75 MG PO (08:55)
[2022-08-29] MEDS: PREGABALIN (*CRX) 75 MG CAPSULE 150 MG PO (08:55)
[2022-08-29] MEDS: ASPIRIN 81 MG ENTERIC TABLET PO (08:55)
[2022-08-29] MEDS: OMEGA 3 POLYUNSAT FATTY ACIDS 1 GM CAP 4 GM PO (08:55)
[2022-08-29] MEDS: SODIUM CHLORIDE 1 GM TABLET PO ×2 (08:55→17:20)
[2022-08-29] MEDS: APIXABAN 5 MG TABLET PO ×2 (08:55→17:19)
[2022-08-29] MEDS: MONTELUKAST SODIUM 10 MG TABLET PO (08:55)
[2022-08-29 11:28] LABS: Glucose Point of Care 187 mg/dl (65-105)
[2022-08-29] MEDS: INSULIN ASPART (*BKC) 100 UNITS/ML 8 UNITS SUB-Q ×2 (13:08→17:21)
--- NOTE | 2022-08-29 14:29 | PM.IMPN ---
Progress Note: A&P Assessment and Plan (1) Sepsis: Code(s): A41.9 - Sepsis, unspecified organism Status: Acute Assessment and Plan: Secondary to cellulitis, diabetic foot ulcer and abscess of left foot 10/22 bedside incision and drainage of left foot abscess by general surgery CT scan MPRESSION: 1. No fracture or other acute osseous abnormality at the left lower leg, foot or ankle. 2. Findings suggestive of diffuse cellulitis throughout the left lower leg and foot and ankle with shallow skin ulceration cephalad to the medial malleolus without underlying soft tissue gas, abscess or osteomyelitis. 3. 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 Wound care following 08/20: Blood cultures growing group B strep in 1/2 bottles 08/20: Wound cultures also growing group B strep 08/22: Repeat blood cultures have been sent and group B Streptococcus in 1/2 bottles -currently on Ancef, - vancomycin, cefepime and Flagyl have been discontinued Repeat blood cultures 08/26: Negative to date Switched antibiotic to ceftriaxone 2 g daily. Need 2 weeks from negative blood culture from 08/26/2022. Due to persistent bacteremia will get TTE which is pending Continue dressing changes as ordered still significant drainage coming out of the wound (2) Atrial fibrillation with rapid ventricular response: Code(s): I48.91 - Unspecified atrial fibrillation Status: Acute Assessment and Plan: Appreciate cardiology evaluation -patient was switched to p.o. amiodarone on 08/24 Continue p.o. metoprolol but increase dose to q.8 hours Continue apixaban TSH was normal -remains in AFib with better rate controlled, in the 90s to 100s -echocardiogram on 08/24 showed EF of 65% left ventricular diastolic function is indeterminate, right atrial chamber dimension is moderately enlarged, mild pulmonary hypertension with RVSP of 35 mm Hg Will increase metoprolol to 100 mg (3) Diabetic ketoacidosis: Code(s): E11.10 - Type 2 diabetes mellitus with ketoacidosis without coma Status: Acute Assessment and Plan: Patient presented with uncontrolled blood sugars and met criteria for for DKA Patient was treated with IV fluids and insulin infusion Patient has now been transitioned to subcutaneous insulin -on Lantus, decreased the dose after reviewing his blood sugars -will continue to monitor closely with Accu-Cheks -continue sliding scale insulin (4) Diabetic ulcer of left ankle: Code(s): E11.622 - Type 2 diabetes mellitus with other skin ulcer; L97.329 - Non-pressure chronic ulcer of left ankle with unspecified severity Status: Acute Assessment and Plan: See above (5) Abscess of left lower leg: Code(s): L02.416 - Cutaneous abscess of left lower limb Status: Acute Assessment and Plan: See above Continue wound care (6) COVID-19: Code(s): U07.1 - COVID-19 Status: Acute Assessment and Plan: Patient tested positive for COVID-19 but does not have COVID-19 pneumonia. He is vaccinated against COVID-19. Chest x-ray was clear Since patient has risk factors being uncontrolled diabetes and he is at High Risk of Progressing to Severe COVID-19 Paxlovid it is not available which I have confirmed pharmacy 08/21 discussed with patient the option of treating him with remdesivir explaining pros and cons and he is agreeable to proceed Patient was started IV remdesivir for 5 days or until discharge. 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
[2022-08-29 16:26] LABS: Glucose Point of Care 157 mg/dl (65-105)
[2022-08-29] MEDS: METOPROLOL SUCCINATE EXT REL 25 MG TABCR PO (17:19)
[2022-08-29] MEDS: cefTRIAXone 2 GM in SODIUM CHLORIDE 0.9% IV 100 ML 200 ML IVPB (20:01)
[2022-08-29] MEDS: INSULIN GLARGINE (*BKC) 100 UNITS/ML 40 UNITS SUB-Q (20:09)
[2022-08-29 21:03] LABS: Glucose Point of Care 149 mg/dl (65-105)
[2022-08-30] VITALS (9 sets, daily range): BP systolic 100–146; BP diastolic 57–85; PULSE 90–152; RESP 16–20; TEMP 36.3–37.6; O2SAT 93–98
[2022-08-30 06:47] LABS: Basophils Percent Auto 0.1 % (0.2-1.2); Eosinophils Percent Auto 0.3 % (0-4.4); Hematocrit 37.4 % (42.0-52.0); Hemoglobin 11.5 g/dL (14.0-18.0); Immature Granulocyte Absolute 0.04 K/mm3 (0.00-0.031); Immature Granulocyte Percent A 0.6 % (0-0.5); Lymphocytes Absolute Auto 1.14 K/mm3 (0.9-3.2); Mean Corpuscular HGB Conc 30.7 g/dl (32-36); Mean Corpuscular Hemoglobin 24.5 pg (26-34); Mean Corpuscular Volume 79.6 fl (80-100); Mean Platelet Volume 10.3 fl (7.4-10.4); Monocytes Absolute Auto 0.5 K/mm3 (0.1-0.6); Monocytes Percent Auto 7.8 % (2.6-8.5); Neutrophils Percent Auto 74.2 % (45.5-73.1); Platelet Count Result 253 k/mm3 (150-375); White Blood Count 6.7 K/mm3 (4.5-10.0)
[2022-08-30 07:02] LABS: Alanine Aminotransferase 13 U/L (6-50); Albumin Level 2.4 g/dL (3.5-5.1); Alkaline Phosphatase 240 U/L (38-126); Aspartate Amino Transferase 45 U/L (17-59); Bilirubin,Total 0.6 mg/dL (0.2-1.3); Blood Urea Nitrogen 16 mg/dL (9-20); Calcium 6.9 mg/dL (8.4-10.2); Carbon Dioxide 28 mmol/L (22-30); Estimated CRCL calculation 93 ml/min; Estimated Glomerular Filt Rate > 60; Glucose 70 mg/dL (65-110); Magnesium 2.1 mg/dL (1.6-2.3)
[2022-08-30 07:08] LABS: Anion Gap 3 mmol/L (8-16); Chloride 99 mmol/L (98-107); Potassium 4.1 mmol/L (3.4-5.0); Sodium 130 mmol/L (137-145)
[2022-08-30 08:04] LABS: Glucose Point of Care 86 mg/dl (65-105)
[2022-08-30] MEDS: PREGABALIN (*CRX) 75 MG CAPSULE 150 MG PO (08:59)
[2022-08-30] MEDS: INSULIN ASPART (*BKC) 100 UNITS/ML 8 UNITS SUB-Q ×2 (08:59→17:25)
[2022-08-30] MEDS: APIXABAN 5 MG TABLET PO ×2 (09:00→17:25)
[2022-08-30] MEDS: OMEGA 3 POLYUNSAT FATTY ACIDS 1 GM CAP 4 GM PO (09:00)
[2022-08-30] MEDS: ASPIRIN 81 MG ENTERIC TABLET PO (09:00)
[2022-08-30] MEDS: TAMSULOSIN HCL 0.4 MG CAPSULE PO (09:00)
[2022-08-30] MEDS: AMIODARONE HCL 200 MG TABLET 400 MG PO (09:00)
[2022-08-30] MEDS: METOPROLOL SUCCINATE EXT REL 100 MG TABCR PO (09:00)
[2022-08-30] MEDS: MONTELUKAST SODIUM 10 MG TABLET PO (09:00)
[2022-08-30] MEDS: SODIUM CHLORIDE 1 GM TABLET PO ×2 (09:00→17:25)
[2022-08-30] MEDS: PRAVASTATIN SODIUM 20 MG TABLET 40 MG PO (09:00)
--- NOTE | 2022-08-30 10:07 | PCPTNOTE ---
Pt declined treatment at this time stating that his stomach doesn't feel well and he didn't sleep last night. Will continue per PT plan of care.
[2022-08-30] MEDS: METOPROLOL TARTRATE INJ 5 MG/5 ML VIAL IV PUSH (11:53)
[2022-08-30 12:06] LABS: Glucose Point of Care 69 mg/dl (65-105)
[2022-08-30 12:18] LABS: Glucose Point of Care 67 mg/dl (65-105)
[2022-08-30] MEDS: GLUCOSE ORAL GEL 15 GM OF GLUCSE IN 37.5 GM TUBE PO (12:20)
[2022-08-30 12:40] LABS: Glucose Point of Care 83 mg/dl (65-105)
--- NOTE | 2022-08-30 14:48 | PCPTNOTE ---
Patient refused treatment this afternoon. He stated that he is unable to do it today because he hasn't gotten any sleep and his stomach is still bothering him. Pt educated on importance of getting up and moving to get back home. Will continue per PT plan of care.
--- NOTE | 2022-08-30 16:14 | PM.IMPN ---
Progress Note: A&P Assessment and Plan (1) Sepsis: Code(s): A41.9 - Sepsis, unspecified organism Status: Acute Assessment and Plan: Secondary to cellulitis, diabetic foot ulcer and abscess of left foot 10/22 bedside incision and drainage of left foot abscess by general surgery CT scan MPRESSION: 1. No fracture or other acute osseous abnormality at the left lower leg, foot or ankle. 2. Findings suggestive of diffuse cellulitis throughout the left lower leg and foot and ankle with shallow skin ulceration cephalad to the medial malleolus without underlying soft tissue gas, abscess or osteomyelitis. 3. 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 Wound care following 08/20: Blood cultures growing group B strep in 1/2 bottles 08/20: Wound cultures also growing group B strep 08/22: Repeat blood cultures have been sent and group B Streptococcus in 1/2 bottles -currently on Ancef, - vancomycin, cefepime and Flagyl have been discontinued Repeat blood cultures 08/26: Negative to date Switched antibiotic to ceftriaxone 2 g daily. Need 2 weeks from negative blood culture from 08/26/2022. Due to persistent bacteremia will get TTE is negative 08/24/2022 Continue dressing changes as ordered still significant drainage coming out of the wound (2) Atrial fibrillation with rapid ventricular response: Code(s): I48.91 - Unspecified atrial fibrillation Status: Acute Assessment and Plan: Appreciate cardiology evaluation -patient was switched to p.o. amiodarone on 08/24 Continue p.o. metoprolol but increase dose to q.8 hours Continue apixaban TSH was normal -remains in AFib with better rate controlled, in the 90s to 100s -echocardiogram on 08/24 showed EF of 65% left ventricular diastolic function is indeterminate, right atrial chamber dimension is moderately enlarged, mild pulmonary hypertension with RVSP of 35 mm Hg Heart rate worsened today Increase metoprolol to 100 mg daily (3) Diabetic ketoacidosis: Code(s): E11.10 - Type 2 diabetes mellitus with ketoacidosis without coma Status: Acute Assessment and Plan: Patient presented with uncontrolled blood sugars and met criteria for for DKA Patient was treated with IV fluids and insulin infusion Patient has now been transitioned to subcutaneous insulin -on Lantus, decreased the dose after reviewing his blood sugars. Lower further down 08/30/2022 -will continue to monitor closely with Accu-Cheks -continue sliding scale insulin (4) Diabetic ulcer of left ankle: Code(s): E11.622 - Type 2 diabetes mellitus with other skin ulcer; L97.329 - Non-pressure chronic ulcer of left ankle with unspecified severity Status: Acute Assessment and Plan: See above (5) Abscess of left lower leg: Code(s): L02.416 - Cutaneous abscess of left lower limb Status: Acute Assessment and Plan: See above Continue wound care (6) COVID-19: Code(s): U07.1 - COVID-19 Status: Acute Assessment and Plan: Patient tested positive for COVID-19 but does not have COVID-19 pneumonia. He is vaccinated against COVID-19. Chest x-ray was clear Since patient has risk factors being uncontrolled diabetes and he is at High Risk of Progressing to Severe COVID-19 Paxlovid it is not available which I have confirmed pharmacy 08/21 discussed with patient the option of treating him with remdesivir explaining pros and cons and he is agreeable to proceed Patient was started IV remdesivir for 5 days or until discharge. 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
[2022-08-30 17:30] LABS: Glucose Point of Care 167 mg/dl (65-105)
[2022-08-30] MEDS: cefTRIAXone 2 GM in SODIUM CHLORIDE 0.9% IV 100 ML 200 ML IVPB (20:16)
[2022-08-30] MEDS: INSULIN GLARGINE (*BKC) 100 UNITS/ML 30 UNITS SUB-Q (20:58)
[2022-08-30 21:08] LABS: Glucose Point of Care 137 mg/dl (65-105)
[2022-08-31] VITALS (10 sets, daily range): BP systolic 98–109; BP diastolic 58–65; PULSE 101–124; RESP 16–20; TEMP 36.4–37.5; O2SAT 92–100
[2022-08-31 07:28] LABS: Alanine Aminotransferase 14 U/L (6-50); Albumin Level 2.4 g/dL (3.5-5.1); Alkaline Phosphatase 212 U/L (38-126); Anion Gap 1 mmol/L (8-16); Aspartate Amino Transferase 50 U/L (17-59); Bilirubin,Total 0.6 mg/dL (0.2-1.3); Blood Urea Nitrogen 17 mg/dL (9-20); Calcium 7.1 mg/dL (8.4-10.2); Carbon Dioxide 28 mmol/L (22-30); Chloride 99 mmol/L (98-107); Estimated CRCL calculation 107 ml/min; Estimated Glomerular Filt Rate > 60; Glucose 69 mg/dL (65-110); Magnesium 2.2 mg/dL (1.6-2.3); Potassium 3.9 mmol/L (3.4-5.0); Sodium 128 mmol/L (137-145)
[2022-08-31 07:36] LABS: Basophils Percent Auto 0.3 % (0.2-1.2); Eosinophils Absolute Auto 0.1 K/mm3 (0-0.3); Eosinophils Percent Auto 0.8 % (0-4.4); Hemoglobin 12.1 g/dL (14.0-18.0); Immature Granulocyte Absolute 0.03 K/mm3 (0.00-0.031); Immature Granulocyte Percent A 0.5 % (0-0.5); Lymphocytes Absolute Auto 1.43 K/mm3 (0.9-3.2); Lymphocytes Percent Auto 23.5 % (18.3-44.2); Mean Corpuscular Hemoglobin 24.6 pg (26-34); Mean Corpuscular Volume 79.4 fl (80-100); Mean Platelet Volume 10.3 fl (7.4-10.4); Monocytes Absolute Auto 0.5 K/mm3 (0.1-0.6); Monocytes Percent Auto 7.6 % (2.6-8.5); Neutrophils Absolute Auto 4.1 K/mm3 (1.3-6.7); Neutrophils Percent Auto 67.3 % (45.5-73.1); Platelet Count Result 265 k/mm3 (150-375); Red Blood Count 4.91 M/mm3 (4.6-6.20); Red Cell Distribution Width 16.5 % (11.5-14.5); White Blood Count 6.1 K/mm3 (4.5-10.0)
[2022-08-31 09:03] LABS: Glucose Point of Care 66 mg/dl (65-105)
[2022-08-31] MEDS: METOPROLOL SUCCINATE EXT REL 100 MG TABCR PO (09:05)
[2022-08-31] MEDS: PREGABALIN (*CRX) 75 MG CAPSULE 150 MG PO (09:05)
[2022-08-31] MEDS: ASPIRIN 81 MG ENTERIC TABLET PO (09:05)
[2022-08-31] MEDS: MONTELUKAST SODIUM 10 MG TABLET PO (09:05)
[2022-08-31] MEDS: SODIUM CHLORIDE 1 GM TABLET PO ×2 (09:05→16:59)
[2022-08-31] MEDS: AMIODARONE HCL 200 MG TABLET 400 MG PO (09:05)
[2022-08-31] MEDS: APIXABAN 5 MG TABLET PO ×2 (09:05→16:59)
[2022-08-31] MEDS: TAMSULOSIN HCL 0.4 MG CAPSULE PO (09:05)
[2022-08-31] MEDS: PRAVASTATIN SODIUM 20 MG TABLET 40 MG PO (09:05)
[2022-08-31] MEDS: OMEGA 3 POLYUNSAT FATTY ACIDS 1 GM CAP 4 GM PO (09:06)
--- NOTE | 2022-08-31 11:25 | PCOTNOTE ---
Attempted to see pt 2x this AM for Occupational Therapy treatment, however, pt refused at both attempts due to not sleeping that last 2 days and wanting to rest. Pt was educated on the importance of continued participation in therapy treatment for increase independence and strengthening for daily occupations. Pt verbally agrees that therapy is important however, continues to refuse. Will continue per poc duration/frequency tomorrow.
[2022-08-31 12:03] LABS: Glucose Point of Care 103 mg/dl (65-105)
--- NOTE | 2022-08-31 12:11 | PCNFU ---
Nutrition Follow-Up Complete: Altered nutrition related lab values related to type 2 diabetes as evidenced by DKA admission. Goal: Meet estimated nutrition needs Patient is meeting current goals. No new goal. Pt current nutrition is DBCC. Last recorded weight is 90.2 kg. Bowel Motility:+BM reported 1/2 Labs Reviewed:Cr 0.6,Na 128, Alb 2.4,Hct 39.0, Hgb 12.1 Meds Noted:Lopressor, Eliquis, NovoLog, Lantus Skin: WNL Additional Notes: Patient is currently eating 100% of Diabetic Diet. Agree with diet orders. Monitoring intakes, weights, labs, meds, plan of care every 7 days.
[2022-08-31] MEDS: LACTIC ACID 12% LOTION 225 BTL 1 APPLIC TOPICAL (13:28)
--- NOTE | 2022-08-31 14:08 | PM.PNGS ---
Progress Note: A&P Assessment and Plan (1) Abscess of left lower leg: Code(s): L02.416 - Cutaneous abscess of left lower limb Status: Acute Assessment and Plan: Overall continues to improve with the areas of tracking decreasing in size and only a scant amount of purulent drainage in one area today. Continue iodoform packing dressing changes. Okay to discharge from a surgical standpoint when okay with primary service. (2) Sepsis: Code(s): A41.9 - Sepsis, unspecified organism Status: Acute Assessment and Plan: Discussed with Hospitalist who is planning for 2 weeks IV abx from the negative blood cx on 08/26, they have consulted the ID pharmacist. Abx per Hospitalist. (3) Diabetic ketoacidosis: Code(s): E11.10 - Type 2 diabetes mellitus with ketoacidosis without coma Status: Acute (4) Atrial fibrillation with rapid ventricular response: Code(s): I48.91 - Unspecified atrial fibrillation Status: Acute Plan I have discussed the patient's case and plan of care with Dr. Martinez. Subjective Subjective Date/Time Seen: 08/31/22 14:08 Patient reports: no new complaints and afebrile Interval history: Chart reviewed since last seen. Denies any specific complaints at this time. Reports overall swelling, redness, and pain of the left lower extremity continues to improve. Exam Skin: Other: Packing removed from left lower medial leg wound, still scant amount of purulent drainage from the tracking that goes towards the anterior aspect of the ankle, but much improved. The area of tracking proximally up the leg is much less only 1 cm or so with no purulent drainage. Erythema resolved and overall swelling continues to improve. Objective Data Vital Signs Vital Signs: Vital Signs - 24 hr 08/30/22 16:00 08/30/22 16:00 08/30/22 20:00 Temperature 97.3 F L 98.0 F Pulse Rate 111 H 115 H 90 Respiratory Rate 16 18 Blood Pressure 109/62 100/57 L Pulse Oximetry 96 98 Oxygen Delivery 08/30/22 20:00 08/30/22 20:00 08/30/22 22:51 Temperature Pulse Rate 90 90 90 Respiratory Rate 18 Blood Pressure Pulse Oximetry 98 Oxygen Delivery Room Air 08/31/22 00:54 08/31/22 04:00 08/31/22 05:42 Temperature 97.6 F Pulse Rate 101 H 103 H 119 H Respiratory Rate 16 Blood Pressure 102/65 Pulse Oximetry 96 Oxygen Delivery 08/31/22 09:05 08/31/22 09:05 08/31/22 09:15 Temperature Pulse Rate 124 H 124 H Respiratory Rate Blood Pressure Pulse Oximetry Oxygen Delivery Room Air 08/31/22 08:00 Temperature Pulse Rate 114 H Respiratory Rate Blood Pressure Pulse Oximetry Oxygen Delivery Intake/Output Intake/Output: Intake & Output 08/28/22 08/29/22 08/30/22 08/31/22 23:59 23:59 23:59 23:59 Intake Total 1970 2912 1240 830 Output Total 4250 9187 3562 0653 Balance -2280 25 -0130 -2719 Meds/Results Medications: Active Medications Generic Name Dose Route Start Last Admin Trade Name Freq PRN Reason Stop Dose Admin Amiodarone HCl 400 mg 08/28/22 09:00 08/31/22 09:05 Amiodarone Hcl 200 Mg Tablet PO 400 mg DAILY YESSICA Administration Apixaban 5 mg 08/21/22 09:00 08/31/22 09:05 Apixaban 5 Mg Tablet PO 5 mg BID YESSICA Administration Aspirin 81 mg 08/21/22 09:00 08/31/22 09:05 Aspirin 81 Mg Enteric Tablet PO 81 mg DAILY YESSICA Administration Dextrose 12.5 gm 08/30/22 12:18 Dextrose 50% 25 Gm/50 Ml Syringe IV PUSH PRN PRN Hypoglycemia Protocol Fish Oil 4 gm 08/21/22 09:00 08/31/22 09:06 [place] 3 Polyunsat Fatty Acids 1 Gm Cap PO 4 gm DAILY YESSICA Administration Glucagon 1 mg 08/30/22 12:18 Glucagon For Inj 1 Mg Vial IM PRN PRN Hypoglycemia Protocol Glucose 15 gm 08/30/22 12:18 08/30/22 12:20 Glucose Oral Gel 15 Gm Of Glucse In 37.5 Gm Tube PO 15 gm PRN PRN Administration Hypoglycemia Protocol Ceftriaxone Sodium 2
--- NOTE | 2022-08-31 15:16 | PM.IMPN ---
Progress Note: A&P Assessment and Plan (1) Sepsis: Code(s): A41.9 - Sepsis, unspecified organism Status: Acute Assessment and Plan: Secondary to cellulitis, diabetic foot ulcer and abscess of left foot 10/22 bedside incision and drainage of left foot abscess by general surgery CT scan MPRESSION: 1. No fracture or other acute osseous abnormality at the left lower leg, foot or ankle. 2. Findings suggestive of diffuse cellulitis throughout the left lower leg and foot and ankle with shallow skin ulceration cephalad to the medial malleolus without underlying soft tissue gas, abscess or osteomyelitis. 3. 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 Wound care following 08/20: Blood cultures growing group B strep in 1/2 bottles 08/20: Wound cultures also growing group B strep 08/22: Repeat blood cultures have been sent and group B Streptococcus in 1/2 bottles -currently on Ancef, - vancomycin, cefepime and Flagyl have been discontinued Repeat blood cultures 08/26: Negative to date Switched antibiotic to ceftriaxone 2 g daily. Need 2 weeks from negative blood culture from 08/26/2022. Due to persistent bacteremia, TTE is negative 08/24/2022 Continue dressing changes as ordered still significant drainage coming out of the wound Discussed with ID pharmacist 08/31/2022: Continue ceftriaxone until drain improves then switched to oral Augmentin. Approximately 2 weeks of antibiotic course (2) Atrial fibrillation with rapid ventricular response: Code(s): I48.91 - Unspecified atrial fibrillation Status: Acute Assessment and Plan: Appreciate cardiology evaluation -patient was switched to p.o. amiodarone on 08/24 Continue p.o. metoprolol but increase dose to q.8 hours Continue apixaban TSH was normal -remains in AFib with better rate controlled, in the 90s to 100s -echocardiogram on 08/24 showed EF of 65% left ventricular diastolic function is indeterminate, right atrial chamber dimension is moderately enlarged, mild pulmonary hypertension with RVSP of 35 mm Hg Heart rate fluctuating Increase metoprolol to 100 mg daily (3) Diabetic ketoacidosis: Code(s): E11.10 - Type 2 diabetes mellitus with ketoacidosis without coma Status: Acute Assessment and Plan: Patient presented with uncontrolled blood sugars and met criteria for for DKA Patient was treated with IV fluids and insulin infusion Patient has now been transitioned to subcutaneous insulin -on Lantus, decreased the dose after reviewing his blood sugars. Lower further down 08/30/2022 -will continue to monitor closely with Accu-Cheks -continue sliding scale insulin (4) Diabetic ulcer of left ankle: Code(s): E11.622 - Type 2 diabetes mellitus with other skin ulcer; L97.329 - Non-pressure chronic ulcer of left ankle with unspecified severity Status: Acute Assessment and Plan: See above (5) Abscess of left lower leg: Code(s): L02.416 - Cutaneous abscess of left lower limb Status: Acute Assessment and Plan: See above Continue wound care (6) COVID-19: Code(s): U07.1 - COVID-19 Status: Acute Assessment and Plan: Patient tested positive for COVID-19 but does not have COVID-19 pneumonia. He is vaccinated against COVID-19. Chest x-ray was clear Since patient has risk factors being uncontrolled diabetes and he is at High Risk of Progressing to Severe COVID-19 Paxlovid it is not available which I have confirmed pharmacy 08/21 discussed with patient the option of treating him with remdesivir explaining pros and cons and he is agreeable to proceed Patient was started IV remdesivir for 5 days or until discharge. Finish the course here concluded 08/25/2022 (7) Chronic deep vein thrombosis (DVT): Qualifiers: Affected thrombotic vein of extremity: tibial DVT location: lower extremity Laterality: left Qualified Code(s): I82.542 - Chronic embolism a
--- NOTE | 2022-08-31 15:28 | PCPTNOTE ---
Addendum entered by Elva Cortes, PT 08/31/22 15:46: Called and Spoke with hospitalist about pt refusing due to pain/tiredness. Original Note: Patient refused treatment this session. Patient refused stating he has pain in bilateral upper thighs when he moves his legs. Patient states he can not get up to the edge of bed due to pain when he moves. Patient performed 5 reps of heel slide exercises for hip and knee flexion. Patient reports feeling soreness in the upper thighs but was able to complete reps. Patient states he has not slept in 5 days and reported this and the pain to his doctor today. I educated patient on the importance of participating in therapy to increase strength and mobility. I reported patient's c/o pain to his RN.
[2022-08-31] MEDS: ACETAMINOPHEN 325 MG TABLET 650 MG PO (15:43)
[2022-08-31 17:22] LABS: Glucose Point of Care 87 mg/dl (65-105)
[2022-08-31] MEDS: cefTRIAXone 2 GM in SODIUM CHLORIDE 0.9% IV 100 ML 200 ML IVPB (21:21)
[2022-08-31] MEDS: INSULIN GLARGINE (*BKC) 100 UNITS/ML 24 UNITS SUB-Q (21:22)
[2022-08-31] MEDS: MELATONIN 3 MG TABLET PO (21:22)
[2022-09-01] VITALS (10 sets, daily range): BP systolic 91–115; BP diastolic 55–69; PULSE 90–112; RESP 16–18; TEMP 36.3–37.1; O2SAT 93–99
[2022-09-01 06:24] LABS: Basophils Percent Auto 0.4 % (0.2-1.2); Eosinophils Absolute Auto 0.1 K/mm3 (0-0.3); Eosinophils Percent Auto 1.7 % (0-4.4); Hematocrit 36.8 % (42.0-52.0); Hemoglobin 11.3 g/dL (14.0-18.0); Immature Granulocyte Absolute 0.03 K/mm3 (0.00-0.031); Immature Granulocyte Percent A 0.6 % (0-0.5); Lymphocytes Absolute Auto 1.26 K/mm3 (0.9-3.2); Lymphocytes Percent Auto 26.2 % (18.3-44.2); Mean Corpuscular HGB Conc 30.7 g/dl (32-36); Mean Corpuscular Hemoglobin 24.4 pg (26-34); Mean Corpuscular Volume 79.3 fl (80-100); Monocytes Absolute Auto 0.4 K/mm3 (0.1-0.6); Monocytes Percent Auto 7.7 % (2.6-8.5); Neutrophils Absolute Auto 3.1 K/mm3 (1.3-6.7); Neutrophils Percent Auto 63.4 % (45.5-73.1); Platelet Count Result 207 k/mm3 (150-375); Red Blood Count 4.64 M/mm3 (4.6-6.20); Red Cell Distribution Width 16.3 % (11.5-14.5); White Blood Count 4.8 K/mm3 (4.5-10.0)
[2022-09-01 06:39] LABS: Alanine Aminotransferase 14 U/L (6-50); Albumin Level 2.3 g/dL (3.5-5.1); Alkaline Phosphatase 174 U/L (38-126); Anion Gap 3 mmol/L (8-16); Aspartate Amino Transferase 42 U/L (17-59); Bilirubin,Total 0.7 mg/dL (0.2-1.3); Blood Urea Nitrogen 18 mg/dL (9-20); Calcium 6.9 mg/dL (8.4-10.2); Carbon Dioxide 26 mmol/L (22-30); Chloride 101 mmol/L (98-107); Estimated CRCL calculation 107 ml/min; Estimated Glomerular Filt Rate > 60; Glucose 75 mg/dL (65-110); Magnesium 2.1 mg/dL (1.6-2.3); Potassium 3.9 mmol/L (3.4-5.0); Sodium 130 mmol/L (137-145)
[2022-09-01] MEDS: PREGABALIN (*CRX) 75 MG CAPSULE 150 MG PO (09:15)
[2022-09-01] MEDS: MONTELUKAST SODIUM 10 MG TABLET PO (09:15)
[2022-09-01] MEDS: AMIODARONE HCL 200 MG TABLET 400 MG PO (09:15)
[2022-09-01] MEDS: TAMSULOSIN HCL 0.4 MG CAPSULE PO (09:15)
[2022-09-01] MEDS: OMEGA 3 POLYUNSAT FATTY ACIDS 1 GM CAP 4 GM PO (09:15)
[2022-09-01] MEDS: METOPROLOL SUCCINATE EXT REL 100 MG TABCR PO (09:15)
[2022-09-01] MEDS: SODIUM CHLORIDE 1 GM TABLET PO ×2 (09:15→17:13)
[2022-09-01] MEDS: APIXABAN 5 MG TABLET PO ×2 (09:15→17:13)
[2022-09-01] MEDS: PRAVASTATIN SODIUM 20 MG TABLET 40 MG PO (09:15)
[2022-09-01] MEDS: ASPIRIN 81 MG ENTERIC TABLET PO (09:16)
[2022-09-01] MEDS: LACTIC ACID 12% LOTION 225 BTL 1 APPLIC TOPICAL (09:16)
[2022-09-01 09:23] LABS: Glucose Point of Care 91 mg/dl (65-105)
[2022-09-01 09:23] LABS: Glucose Point of Care 68 mg/dl (65-105)
[2022-09-01] MEDS: DOCUSATE SODIUM 100 MG CAPSULE PO ×2 (11:54→21:42)
[2022-09-01] MEDS: polyethylene glycoL 3350 17 GM POWD.PACK PO (11:55)
[2022-09-01 11:57] LABS: Glucose Point of Care 115 mg/dl (65-105)
--- NOTE | 2022-09-01 14:06 | PCOTNOTE ---
Attempted to see patient this pm, however patient on bed scott upon entering stating, Yep, It's still leaking.
[2022-09-01 16:58] LABS: Glucose Point of Care 139 mg/dl (65-105)
--- NOTE | 2022-09-01 17:44 | P.PNIM_ITS ---
Progress Note: A&P Assessment and Plan (1) Sepsis: Code(s): A41.9 - Sepsis, unspecified organism Status: Acute Assessment and Plan: Secondary to cellulitis, diabetic foot ulcer and abscess of left foot 10/22 bedside incision and drainage of left foot abscess by general surgery CT scan MPRESSION: 1. No fracture or other acute osseous abnormality at the left lower leg, foot or ankle. 2. Findings suggestive of diffuse cellulitis throughout the left lower leg and foot and ankle with shallow skin ulceration cephalad to the medial malleolus without underlying soft tissue gas, abscess or osteomyelitis. 3. 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 Wound care following 08/20: Blood cultures growing group B strep in 1/2 bottles 08/20: Wound cultures also growing group B strep 08/22: Repeat blood cultures have been sent and group B Streptococcus in 1/2 bottles -currently on Ancef, - vancomycin, cefepime and Flagyl have been discontinued Repeat blood cultures 08/26: Negative to date Switched antibiotic to ceftriaxone 2 g daily. Need 2 weeks from negative blood culture from 08/26/2022. Due to persistent bacteremia, TTE is negative 08/24/2022 Continue dressing changes as ordered still significant drainage coming out of the wound Discussed with ID pharmacist 08/31/2022: Continue ceftriaxone until drain improves then switched to oral Augmentin. Approximately 2 weeks of antibiotic course (2) Atrial fibrillation with rapid ventricular response: Code(s): I48.91 - Unspecified atrial fibrillation Status: Acute Assessment and Plan: Appreciate cardiology evaluation -patient was switched to p.o. amiodarone on 08/24 Continue p.o. metoprolol but increase dose to q.8 hours Continue apixaban TSH was normal -remains in AFib with better rate controlled, in the 90s to 100s -echocardiogram on 08/24 showed EF of 65% left ventricular diastolic function is indeterminate, right atrial chamber dimension is moderately enlarged, mild pulmonary hypertension with RVSP of 35 mm Hg Heart rate fluctuating Increase metoprolol to 100 mg daily (3) Diabetic ketoacidosis: Code(s): E11.10 - Type 2 diabetes mellitus with ketoacidosis without coma Status: Acute Assessment and Plan: Patient presented with uncontrolled blood sugars and met criteria for for DKA Patient was treated with IV fluids and insulin infusion Patient has now been transitioned to subcutaneous insulin -on Lantus, decreased the dose after reviewing his blood sugars. Lower further down 08/30/2022 -will continue to monitor closely with Accu-Cheks -continue sliding scale insulin (4) Diabetic ulcer of left ankle: Code(s): E11.622 - Type 2 diabetes mellitus with other skin ulcer; L97.329 - Non-pressure chronic ulcer of left ankle with unspecified severity Status: Acute Assessment and Plan: See above (5) Abscess of left lower leg: Code(s): L02.416 - Cutaneous abscess of left lower limb Status: Acute Assessment and Plan: See above Continue wound care (6) COVID-19: Code(s): U07.1 - COVID-19 Status: Acute Assessment and Plan: Patient tested positive for COVID-19 but does not have COVID-19 pneumonia. He is vaccinated against COVID-19. Chest x-ray was clear Since patient has risk factors being uncontrolled diabetes and he is at High Risk of Progressing to Severe COVID-19 Paxlovid it is not available which I have confirmed pharmacy 08/21 discussed with patient the option of treating him with remdesivir explaining pros and
[2022-09-01] MEDS: MELATONIN 3 MG TABLET PO (21:42)
[2022-09-01] MEDS: cefTRIAXone 2 GM in SODIUM CHLORIDE 0.9% IV 100 ML 200 ML IVPB (21:46)
[2022-09-01] MEDS: INSULIN GLARGINE (*BKC) 100 UNITS/ML 24 UNITS SUB-Q (21:46)
[2022-09-01 22:00] LABS: Glucose Point of Care 211 mg/dl (65-105)
[2022-09-02] VITALS (9 sets, daily range): BP systolic 80–89; BP diastolic 54–66; PULSE 67–100; RESP 14–16; TEMP 36.2–36.4; O2SAT 96–98
[2022-09-02 08:16] LABS: Glucose Point of Care 136 mg/dl (65-105)
[2022-09-02] MEDS: PREGABALIN (*CRX) 75 MG CAPSULE 150 MG PO (09:45)
[2022-09-02] MEDS: LACTIC ACID 12% LOTION 225 BTL 1 APPLIC TOPICAL (09:45)
[2022-09-02] MEDS: OMEGA 3 POLYUNSAT FATTY ACIDS 1 GM CAP 4 GM PO (09:45)
[2022-09-02] MEDS: METOPROLOL SUCCINATE EXT REL 100 MG TABCR PO (09:46)
[2022-09-02] MEDS: ASPIRIN 81 MG ENTERIC TABLET PO (09:46)
[2022-09-02] MEDS: SODIUM CHLORIDE 1 GM TABLET PO ×2 (09:46→17:12)
[2022-09-02] MEDS: TAMSULOSIN HCL 0.4 MG CAPSULE PO (09:46)
[2022-09-02] MEDS: AMIODARONE HCL 200 MG TABLET 400 MG PO (09:46)
[2022-09-02] MEDS: PRAVASTATIN SODIUM 20 MG TABLET 40 MG PO (09:46)
[2022-09-02] MEDS: MONTELUKAST SODIUM 10 MG TABLET PO (09:46)
[2022-09-02] MEDS: APIXABAN 5 MG TABLET PO ×2 (09:46→17:12)
[2022-09-02] MEDS: INSULIN ASPART (*BKC) 100 UNITS/ML 6 UNITS SUB-Q ×2 (09:47→12:48)
[2022-09-02 12:19] LABS: Glucose Point of Care 132 mg/dl (65-105)
[2022-09-02 17:07] LABS: Glucose Point of Care 101 mg/dl (65-105)
[2022-09-02] MEDS: INSULIN GLARGINE (*BKC) 100 UNITS/ML 24 UNITS SUB-Q (20:19)
[2022-09-02] MEDS: cefTRIAXone 2 GM in SODIUM CHLORIDE 0.9% IV 100 ML IVPB (20:21)
[2022-09-02] MEDS: DOCUSATE SODIUM 100 MG CAPSULE PO (20:23)
[2022-09-02] MEDS: MELATONIN 3 MG TABLET PO (20:23)
[2022-09-02 20:31] LABS: Glucose Point of Care 231 mg/dl (65-105)
[2022-09-03] VITALS (11 sets, daily range): BP systolic 84–88; BP diastolic 49–60; PULSE 69–87; RESP 16–18; TEMP 35.9–36.6; O2SAT 96–97
[2022-09-03 07:55] LABS: Glucose Point of Care 151 mg/dl (65-105)
[2022-09-03] MEDS: AMIODARONE HCL 200 MG TABLET 400 MG PO (08:49)
[2022-09-03] MEDS: APIXABAN 5 MG TABLET PO ×2 (08:50→16:56)
[2022-09-03] MEDS: ASPIRIN 81 MG ENTERIC TABLET PO (08:51)
[2022-09-03] MEDS: DOCUSATE SODIUM 100 MG CAPSULE PO (08:51)
[2022-09-03] MEDS: PRAVASTATIN SODIUM 20 MG TABLET 40 MG PO (08:51)
[2022-09-03] MEDS: PREGABALIN (*CRX) 75 MG CAPSULE 150 MG PO (08:51)
[2022-09-03] MEDS: LACTIC ACID 12% LOTION 225 BTL 1 APPLIC TOPICAL (08:51)
[2022-09-03] MEDS: SODIUM CHLORIDE 1 GM TABLET PO ×2 (08:51→16:56)
[2022-09-03] MEDS: OMEGA 3 POLYUNSAT FATTY ACIDS 1 GM CAP 4 GM PO (08:52)
[2022-09-03] MEDS: METOPROLOL SUCCINATE EXT REL 100 MG TABCR PO (08:52)
[2022-09-03] MEDS: polyethylene glycoL 3350 17 GM POWD.PACK PO (08:52)
[2022-09-03] MEDS: MONTELUKAST SODIUM 10 MG TABLET PO (08:52)
[2022-09-03] MEDS: TAMSULOSIN HCL 0.4 MG CAPSULE PO (08:52)
[2022-09-03 11:36] LABS: Glucose Point of Care 182 mg/dl (65-105)
[2022-09-03] MEDS: INSULIN ASPART (*BKC) 100 UNITS/ML 6 UNITS SUB-Q (16:54)
[2022-09-03 16:58] LABS: Glucose Point of Care 335 mg/dl (65-105)
[2022-09-03] MEDS: INSULIN GLARGINE (*BKC) 100 UNITS/ML 24 UNITS SUB-Q (22:02)
[2022-09-03] MEDS: MELATONIN 3 MG TABLET PO (22:18)
[2022-09-03] MEDS: cefTRIAXone 2 GM in SODIUM CHLORIDE 0.9% IV 100 ML IVPB (22:19)
[2022-09-04] VITALS (11 sets, daily range): BP systolic 89–94; BP diastolic 49–60; PULSE 65–94; RESP 14–18; TEMP 35.8–36; O2SAT 96–97
[2022-09-04 02:02] LABS: Glucose Point of Care 315 mg/dl (65-105)
[2022-09-04 07:53] LABS: Glucose Point of Care 171 mg/dl (65-105)
[2022-09-04] MEDS: AMIODARONE HCL 200 MG TABLET PO (09:15)
[2022-09-04] MEDS: DOCUSATE SODIUM 100 MG CAPSULE PO ×2 (09:16→20:21)
[2022-09-04] MEDS: ASPIRIN 81 MG ENTERIC TABLET PO (09:16)
[2022-09-04] MEDS: METOPROLOL SUCCINATE EXT REL 50 MG TABCR PO (09:16)
[2022-09-04] MEDS: LACTIC ACID 12% LOTION 225 BTL 1 APPLIC TOPICAL (09:16)
[2022-09-04] MEDS: APIXABAN 5 MG TABLET PO ×2 (09:16→18:02)
[2022-09-04] MEDS: PRAVASTATIN SODIUM 20 MG TABLET 40 MG PO (09:17)
[2022-09-04] MEDS: polyethylene glycoL 3350 17 GM POWD.PACK PO (09:17)
[2022-09-04] MEDS: MONTELUKAST SODIUM 10 MG TABLET PO (09:17)
[2022-09-04] MEDS: OMEGA 3 POLYUNSAT FATTY ACIDS 1 GM CAP 4 GM PO (09:17)
[2022-09-04] MEDS: SODIUM CHLORIDE 1 GM TABLET PO ×2 (09:18→18:02)
[2022-09-04] MEDS: TAMSULOSIN HCL 0.4 MG CAPSULE PO (09:18)
[2022-09-04] MEDS: PREGABALIN (*CRX) 75 MG CAPSULE 150 MG PO (09:39)
[2022-09-04 11:45] LABS: Glucose Point of Care 175 mg/dl (65-105)
[2022-09-04 17:03] LABS: Glucose Point of Care 236 mg/dl (65-105)
[2022-09-04] MEDS: INSULIN ASPART (*BKC) 100 UNITS/ML 6 UNITS SUB-Q (18:02)
[2022-09-04] MEDS: cefTRIAXone 2 GM in SODIUM CHLORIDE 0.9% IV 100 ML IVPB (20:21)
[2022-09-04] MEDS: MELATONIN 3 MG TABLET PO (20:21)
[2022-09-04] MEDS: INSULIN GLARGINE (*BKC) 100 UNITS/ML 24 UNITS SUB-Q (20:22)
[2022-09-04 21:53] LABS: Glucose Point of Care 243 mg/dl (65-105)
[2022-09-04] MEDS: SODIUM CHLORIDE 0.9% IV 1,000 ML 999 ML IV CONT (23:10)
[2022-09-05] VITALS (11 sets, daily range): BP systolic 91–107; BP diastolic 43–62; PULSE 68–120; RESP 14–28; TEMP 35.8–36.3; O2SAT 97–98
[2022-09-05 07:01] LABS: Mean Corpuscular HGB Conc 30.6 g/dl (32-36); Mean Corpuscular Hemoglobin 24.3 pg (26-34); Mean Corpuscular Volume 79.6 fl (80-100); Mean Platelet Volume 10.6 fl (7.4-10.4); Platelet Count Result 163 k/mm3 (150-375); Red Blood Count 4.52 M/mm3 (4.6-6.20); Red Cell Distribution Width 17.2 % (11.5-14.5); White Blood Count 3.2 K/mm3 (4.5-10.0)
[2022-09-05 07:12] LABS: Anion Gap 3 mmol/L (8-16); Blood Urea Nitrogen 9 mg/dL (9-20); Calcium 7.1 mg/dL (8.4-10.2); Carbon Dioxide 27 mmol/L (22-30); Chloride 106 mmol/L (98-107); Estimated CRCL calculation 126 ml/min; Estimated Glomerular Filt Rate > 60; Glucose 174 mg/dL (65-110); Magnesium 1.9 mg/dL (1.6-2.3); Potassium 4.1 mmol/L (3.4-5.0); Sodium 136 mmol/L (137-145)
[2022-09-05 08:23] LABS: Glucose Point of Care 153 mg/dl (65-105)
[2022-09-05] MEDS: INSULIN ASPART (*BKC) 100 UNITS/ML 6 UNITS SUB-Q ×3 (10:00→18:00)
[2022-09-05] MEDS: DOCUSATE SODIUM 100 MG CAPSULE PO ×2 (10:02→21:03)
[2022-09-05] MEDS: AMIODARONE HCL 200 MG TABLET PO (10:02)
[2022-09-05] MEDS: PRAVASTATIN SODIUM 20 MG TABLET 40 MG PO (10:03)
[2022-09-05] MEDS: TAMSULOSIN HCL 0.4 MG CAPSULE PO (10:03)
[2022-09-05] MEDS: polyethylene glycoL 3350 17 GM POWD.PACK PO (10:03)
[2022-09-05] MEDS: OMEGA 3 POLYUNSAT FATTY ACIDS 1 GM CAP 4 GM PO (10:03)
[2022-09-05] MEDS: METOPROLOL SUCCINATE EXT REL 50 MG TABCR PO (10:03)
[2022-09-05] MEDS: APIXABAN 5 MG TABLET PO ×2 (10:04→18:01)
[2022-09-05] MEDS: ASPIRIN 81 MG ENTERIC TABLET PO (10:04)
[2022-09-05] MEDS: LACTIC ACID 12% LOTION 225 BTL 1 APPLIC TOPICAL (10:04)
[2022-09-05] MEDS: MONTELUKAST SODIUM 10 MG TABLET PO (10:04)
[2022-09-05] MEDS: SODIUM CHLORIDE 1 GM TABLET PO ×2 (10:04→18:01)
[2022-09-05] MEDS: PREGABALIN (*CRX) 75 MG CAPSULE 150 MG PO (10:08)
[2022-09-05 12:09] LABS: Glucose Point of Care 149 mg/dl (65-105)
[2022-09-05 17:09] LABS: Glucose Point of Care 194 mg/dl (65-105)
[2022-09-05] MEDS: cefTRIAXone 2 GM in SODIUM CHLORIDE 0.9% IV 100 ML IVPB (21:02)
[2022-09-05] MEDS: MELATONIN 3 MG TABLET PO (21:03)
[2022-09-05] MEDS: INSULIN GLARGINE (*BKC) 100 UNITS/ML 24 UNITS SUB-Q (21:05)
[2022-09-05 21:59] LABS: Glucose Point of Care 260 mg/dl (65-105)
[2022-09-06] VITALS (7 sets, daily range): BP systolic 98–114; BP diastolic 58–65; PULSE 80–90; RESP 14–20; TEMP 35.9–36.2; O2SAT 96–98
[2022-09-06 06:37] LABS: Hematocrit 35.1 % (42.0-52.0); Hemoglobin 10.6 g/dL (14.0-18.0); Mean Corpuscular HGB Conc 30.2 g/dl (32-36); Mean Corpuscular Hemoglobin 24.4 pg (26-34); Mean Corpuscular Volume 80.9 fl (80-100); Mean Platelet Volume 10.6 fl (7.4-10.4); Platelet Count Result 171 k/mm3 (150-375); Red Blood Count 4.34 M/mm3 (4.6-6.20); Red Cell Distribution Width 17.4 % (11.5-14.5); White Blood Count 3.5 K/mm3 (4.5-10.0)
[2022-09-06 06:42] LABS: Anion Gap 1 mmol/L (8-16); Blood Urea Nitrogen 10 mg/dL (9-20); Calcium 7.2 mg/dL (8.4-10.2); Carbon Dioxide 30 mmol/L (22-30); Chloride 102 mmol/L (98-107); Estimated CRCL calculation 107 ml/min; Estimated Glomerular Filt Rate > 60; Glucose 202 mg/dL (65-110); Magnesium 1.9 mg/dL (1.6-2.3); Potassium 4.3 mmol/L (3.4-5.0); Sodium 133 mmol/L (137-145)
[2022-09-06 07:49] LABS: Glucose Point of Care 178 mg/dl (65-105)
[2022-09-06] MEDS: ASPIRIN 81 MG ENTERIC TABLET PO (08:53)
[2022-09-06] MEDS: AMIODARONE HCL 200 MG TABLET PO (08:53)
[2022-09-06] MEDS: APIXABAN 5 MG TABLET PO (08:53)
[2022-09-06] MEDS: PREGABALIN (*CRX) 75 MG CAPSULE 150 MG PO (08:54)
[2022-09-06] MEDS: LACTIC ACID 12% LOTION 225 BTL 1 APPLIC TOPICAL (08:54)
[2022-09-06] MEDS: MONTELUKAST SODIUM 10 MG TABLET PO (08:54)
[2022-09-06] MEDS: PRAVASTATIN SODIUM 20 MG TABLET 40 MG PO (08:54)
[2022-09-06] MEDS: OMEGA 3 POLYUNSAT FATTY ACIDS 1 GM CAP 4 GM PO (08:54)
[2022-09-06] MEDS: METOPROLOL SUCCINATE EXT REL 50 MG TABCR PO (08:54)
[2022-09-06] MEDS: TAMSULOSIN HCL 0.4 MG CAPSULE PO (08:55)
[2022-09-06] MEDS: SODIUM CHLORIDE 1 GM TABLET PO (08:55)
[2022-09-06] MEDS: INSULIN ASPART (*BKC) 100 UNITS/ML 6 UNITS SUB-Q ×2 (08:58→12:07)
[2022-09-06 11:38] LABS: Glucose Point of Care 157 mg/dl (65-105)
--- NOTE | 2022-09-19 14:26 | PM.DS ---
DS: Admitting Diagnosis Discharge Date 09/06/22 Admitting Diagnosis Left foot pain. DS: Discharge Diagnosis Discharge Diagnosis (1) Sepsis: Code(s): A41.9 - Sepsis, unspecified organism Status: Acute (2) Atrial fibrillation with rapid ventricular response: Code(s): I48.91 - Unspecified atrial fibrillation Status: Acute (3) Diabetic ketoacidosis: Code(s): E11.10 - Type 2 diabetes mellitus with ketoacidosis without coma Status: Acute (4) Diabetic ulcer of left ankle: Code(s): E11.622 - Type 2 diabetes mellitus with other skin ulcer; L97.329 - Non-pressure chronic ulcer of left ankle with unspecified severity Status: Acute (5) Abscess of left lower leg: Code(s): L02.416 - Cutaneous abscess of left lower limb Status: Acute (6) COVID-19: Code(s): U07.1 - COVID-19 Status: Acute (7) Chronic deep vein thrombosis (DVT): Qualifiers: Affected thrombotic vein of extremity: tibial DVT location: lower extremity Laterality: left Qualified Code(s): I82.542 - Chronic embolism and thrombosis of left tibial vein Code(s): I82.509 - Chronic embolism and thrombosis of unspecified deep veins of unspecified lower extremity Status: Acute (8) Electrolyte abnormality: Code(s): E87.8 - Other disorders of electrolyte and fluid balance, not elsewhere classified Status: Acute (9) Chronic anticoagulation: Code(s): 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 Narrative: This is a 72-year-old male with multiple medical problems including history of DVT, insulin-dependent type 2 diabetes mellitus, hypertension, hyperlipidemia, and paroxysmal atrial fibrillation on chronic anticoagulation who presented to the ED for evaluation of left foot pain. He has had a wound on the left medial ankle for quite some time though it has gotten worse ?recently? 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 He does not really recall how he got the wound. He was a bit hypotensive and tachycardic on arrival to the ED with a normal temperature. EKG showed atrial fibrillation with rapid ventricular response for which he was given an IV bolus of Lopressor with initial improvement however he has since been started on amiodarone drip. He tested positive for COVID though he is quite asymptomatic aside from a mild runny nose which he goes on to say is pretty chronic for him. Labs were significant for a WBC of 13.2, random glucose 328, beta hydroxybutyrate 8.41, and an anion gap of 21. UA was positive for 3+ glucose and 1+ ketones. CT of the left leg showed no fracture but did note findings suggestive of diffuse cellulitis without underlying soft tissue gas, abscess, or osteomyelitis. He is being admitted in this setting for IV antibiotics due to a diabetic foot wound in addition to DKA. At the time my evaluation he has no specific complaints and is feeling okay. Hospital Course: patient with wound on left lower extremity seen by surgery service wound is healing recommending continue dressing also blood cultures during group B Streptococcus being treated with ceftriaxone, repeat blood culture so far negative will continue to monitor discussed ID pharmacist. on 09/01? patient will need IV antibiotic until 09/08,? also patient complained no BM for 2 days,? patient was passing gas, denied any abdominal pain nausea or vomiting,? gave the patie
== END 2022-09-06 16:12 | DRG 871 ==
LOC: ANHED 14:58 → ANHICU 15:09 → ANH3MEDSUR 08-25 09:21
PROVIDERS: Internal Medicine; Physician Assistant; Admitting Provider Internal Medicine; Emergency Provider Emergency Medicine; PCP Internal Medicine; Visit Provider Family Medicine
DX: A41.9 Sepsis, unspecified organism (principal); E11.10 Type 2 diabetes mellitus with ketoacidosis without coma; U07.1 COVID-19; L97.329 Non-pressure chronic ulcer of left ankle with unspecified severity; I82.542 Chronic embolism and thrombosis of left tibial vein; L03.116 Cellulitis of left lower limb; E11.622 Type 2 diabetes mellitus with other skin ulcer; I48.0 Paroxysmal atrial fibrillation; I10 Essential (primary) hypertension; E78.5 Hyperlipidemia, unspecified; Z87.891 Personal history of nicotine dependence; Z79.4 Long term (current) use of insulin; Z79.01 Long term (current) use of anticoagulants; Z79.82 Long term (current) use of aspirin; Z79.899 Other long term (current) drug therapy; Z79.84 Long term (current) use of oral hypoglycemic drugs; Z83.3 Family history of diabetes mellitus; Z82.49 Family history of ischemic heart disease and other diseases of the circulatory system; Z82.61 Family history of arthritis; Z81.8 Family history of other mental and behavioral disorders; Z82.5 Family history of asthma and other chronic lower respiratory diseases; Z80.3 Family history of malignant neoplasm of breast; Z80.42 Family history of malignant neoplasm of prostate
CPT/HCPCS: 36415; 36600; 71046; 72100; 73610; 73701; 80048; 80053; 80202; 81001; 82010; 82375; 82565; 82805; 82948; 83050; 83605; 83735; 84100; 84443; 84460; 85025; 85027; 85610; 85652; 85730; 86140; 87040; 87070; 87077; 87147; 87181; 87186; 87205; 87493; 87636; 93005; 93306; 93971; 96361; 96365; 96366; 96367; 96368; 96375; 96376; 97110; 97161; 97165; 97530; 97535; 99285; A9270; G0378; J0248; J0282; J0610; J0690; J0692; J0696; J1815; J3370; J3475; J3480; J7030; J7040; J7050; Q9967

== ENCOUNTER 2022-09-20 09:47 | Emergency (ER) | payer MEDICARE, OTHER, SELFPAY ==
[2022-09-20] VITALS (23 sets, daily range): BP systolic 86–109; BP diastolic 57–88; PULSE 81–106; RESP 14–23; TEMP 36.3; O2SAT 94–99
--- NOTE | ~2022-09-20 | CT_ITS ---
Non-contrast Head CT History: Altered mental status COMPARISON: 08/10/2016 Technique: Axial non-contrast imaging of the brain was performed. Dose reduction technique was used on this scan by utilizing automated exposure control and iterative reconstruction technique. The dose -length product (DLP) was 605.33 mGy-cm. Findings: There is no evidence of intracranial hemorrhage, mass lesion, or acute infarct. Brain par enchyma appears normal. The ventricles and subarachnoid spaces are normal in size. The calvarium ap pears normal. There is opacification of the visualized right maxillary sinus. The remaining visualize d paranasal sinuses and mastoid air cells are clear. Impression: No intracranial abnormality seen. Right maxillary sinus disease. Reviewed, dictated and finalized at [facility]. D LOADER Impression: No intracranial abnormality seen. Right maxillary sinus disease.
--- NOTE | 2022-09-20 10:13 | ED.GENADULT ---
HPI - General Adult General Chief complaint: Altered Mental Status Stated complaint: diabetic Time Seen by Provider: 09/20/22 09:55 History of Present Illness HPI narrative: the patient is a 72 old male with insulin-dependent diabetes also takes oral hypoglycemic agents. He was recently hospitalized on August 20, 2022 due to right lower extremity wound. Prior to the hospitalization he was on the following medications: Glimepiride 2 tablets of 4 mg at nighttime, metformin 500 mg at nighttime, Janumet 2 tablets at nighttime. He also used to take insulin glargine Toujeo Max 130 units subcutaneously at night time in addition to insulin NovoLog 50 units subcutaneously at night time. He did not do a sliding scale during the daytime. He is also on other medications for a chronic left lower extremity DVT, and Eliquis twice daily, as well as aspirin. Also has atrial fibrillation, hypertension, and hyperlipidemia. Tension fraction 65%. He was admitted on 08/20/2022 at [facility] due to a left lower leg ankle abscess which underwent incision and drainage, and grew group B Streptococcus. He also had bacteremia with group B Streptococcus on 08/20 and again on 08/22/2022. Received vancomycin ceftazidime and metronidazole initially and then was switched to Rocephin. He was hospitalized with sepsis until September 06, 2022. Also had minimally symptomatic COVID-19, treated with remdesivir. Did have atrial fibrillation with rapid ventricular response, treated medically. He underwent dressing changes to his left ankle wound. He was transferred to [facility] on 09/06/2022. In rehab, he stayed there until September 18, 2022, at which point was discharged with dressing changes. While in rehabilitation, he was on the following medications for diabetes: Metformin 500 mg at morning, insulin lispro sliding scale 2-5 units, and insulin glargine 30 units at bedtime. Not on Janumet or on glimepiride from August 20 2022 until September 18 2022. his insulin glargine dose was only 30 units plus the sliding scale instead of the dose of 130 units that he takes at home. His NovoLog insulin was not given to him. His Accu-Cheks on September 17 were 142. On September 16 Accu-Chek in rehabilitation was 139, 270, 207. Upon discharge and going back home, the patient has reverted to his home dose of diabetes medications prior to admission. Two days ago, 09/18/2022, and yesterday 09/19/2022, he took 8 mg of glimepiride at bedtime metformin 500 mg at bedtime and Janumet 2 tablets at bedtime yesterday, he took the same dose of oral hypoglycemics bedtime, September 19, 2022. He did not take any of his insulin either the insulin glargine Toujeo Max or the insulin Novolog yesterday (but did take it 09/18/2022) since his sugars were in the 80-90 range: his glucose last night was 88. He did take a piece of candy. Yesterday, he had a home health nurse come to the house and do a dressing change of his left lower leg wound which is quite superficial. Also has a left heel ulcer which is superficial and a minimal ulcer on the sole of his left foot, none of which are infected. Of note, during his recent hospitalization, he also had a left upper extremity DVT which still to be from an IV. He remains on Eliquis for that. This morning at home, he was noted to be sleeping at 6:15 a.m. by his daughter who lives close by. A few hours later, he still was asleep. He was noted to be unresponsive by a neighbor. EMS was notified. EMS confirmed him to be unresponsive. Accu-Chek of 52 was noted. He was incontinent of urine and stool. Glucagon 1 mg was given intramuscularly. Repeat Accu-Chek following that was 88 and then 98 on arrival to the emergency room. He feels back to baseline. He is no longer confused. He has no motor or sensory deficits. He has no complaints. No nausea vomiting. No dizziness. No headache. No chest pain or abdominal pain. No fevers or chills or diaphoresis.
[2022-09-20 10:19] LABS: Glucose Point of Care 98 mg/dl (65-105)
[2022-09-20] MEDS: DEXTROSE 5%/0.9% SOD CHL 1,000 ML 150 ML IV CONT (10:45)
[2022-09-20 10:48] LABS: Basophils Absolute Auto 0.02 K/mm3 (0.00-0.10); Basophils Percent Auto 0.2 % (0.0-1.0); Eosinophils Absolute Auto 0.03 K/mm3 (0.02-0.50); Eosinophils Percent Auto 0.3 % (1.0-6.0); Hematocrit 42.2 % (37.0-46.0); Hemoglobin 12.9 g/dL (12.4-15.3); Immature Granulocyte Absolute 0.05 K/mm3 (0.00-0.00); Immature Granulocyte Percent A 0.5 % (0.0-0.0); Lymphocytes Absolute Auto 0.59 K/mm3 (1.10-4.50); Lymphocytes Percent Auto 5.9 % (18.0-42.0); Mean Corpuscular HGB Conc 30.6 g/dL (32.0-36.0); Mean Corpuscular Hemoglobin 25.3 pg (27.0-31.0); Mean Corpuscular Volume 82.9 fL (78.0-102.0); Monocytes Absolute Auto 0.37 K/mm3 (0.10-0.90); Monocytes Percent Auto 3.7 % (2.0-11.0); Neutrophils Absolute Auto 8.9 K/mm3 (1.7-7.2); Neutrophils Percent Auto 89.4 % (50.0-70.0); Platelet Count Result 216 K/mm3 (150-420); Red Blood Count 5.09 M/mm3 (4.70-6.10); Red Cell Distribution Width 18.1 % (11.6-14.4); White Blood Count 9.9 K/mm3 (4.8-10.8)
--- NOTE | 2022-09-20 10:57 | PC.NURSE ---
DAUGHTERS HAVE LEFT TO GET PT HOME MEDICATIONS. PT ARRIVED INCONTINENT OF STOOL AND BLADDER, LARGE BM NOTED. PT HAD PERICARE PROVIDED. WOUND TO LEFT FOOT WAS CLEANED AND REDRESSED ORDERED PER ERP. THE LEFT FOOT HAS A HEALING WOUND TO LATERAL ASPECT OF ANKLE, BLACK NECROSIS NOTED TO DORSAL SIDE OF LEFT GREAT AND THIRD TOES, AND TO BASE OF FOOT UNDER 4TH AND 5TH TOES. THERE IS AN ULCER NOTED TO THE HEEL. NONE OF THE WOUNDS ARE DRAINING. EXTRA PADDING PLACED ON HEEL PER ERP V/O. PT TOLERATED WELL. PT DENIES ANY PAIN OR COMPLAINTS AT THIS TIME. PT DOES NOT RECALL EVENTS OF THIS AM, STATES HIS BLOOD SUGAR WAS 90 LAST PM PRIOR TO BED SO HE DID NOT TAKE ANY OF HIS DIABETIC MEDICATIONS LAST NIGHT, ATE A PIECE OF CANDY AND WENT TO BED. PT IS A & O X4 AT THIS TIME. IV MEDICATIONS ARE INFUSING WITHOUT DIFFICULTY. VSS PER MONITOR. PT IS EATING LUNCH TRAY AT THIS TIME. ORANGE JUICE HAD ALREADY BEEN PROVIDED TO PT. WILL CONTINUE TO MONITOR.
[2022-09-20 11:04] LABS: Alanine Aminotransferase 10 U/L (16-63); Albumin Level 2.4 g/dL (3.4-5.0); Alkaline Phosphatase 119 U/L (46-116); Anion Gap 6 mmol/L (8-16); Aspartate Amino Transferase 23 U/L (15-37); Bilirubin,Total 0.5 mg/dL (0.00-1.00); Blood Urea Nitrogen 23 mg/dL (7-18); Calcium 8.1 mg/dL (8.5-10.1); Carbon Dioxide 28 mmol/L (21-32); Chloride 107 mmol/L (98-108); Estimated Glomerular Filt Rate > 60; Glucose 95 mg/dL (70-99); Magnesium 1.6 mg/dL (1.8-2.4); Osmolality Calculated 295 mOsm/kg (285-295); Potassium 4.4 mmol/L (3.5-5.1); Sodium 141 mmol/L (136-145); Total Protein 6.8 g/dL (6.4-8.2)
--- NOTE | 2022-09-20 11:45 | ECG_ITS ---
Measurements Intervals [place] Rate: 92 P: IN: 0 QRS: 56 QRSD: 108 T: 77 QT: 416 QTc: 516 Interpretive Statements ATRIAL FIBRILLATION NONSPECIFIC ST ELEVATION IN ANTEROLAT/INF LEADS ABNORMAL ECG COMPARED TO ECG 08/20/2022 09:55:43 HEART RATE HAS DECREASED Electronically Signed On 09-20-2022 13:04:03 [employer]GE TECHNICIAN by Larry Juan D.O.
[2022-09-20 11:49] LABS: Glucose Point of Care 109 mg/dl (65-105)
[2022-09-20] MEDS: MAGNESIUM SULF 2 GM/WATER 50ML 2 GM/50 ML BAG IVPB (12:44)
[2022-09-20 12:49] LABS: Glucose Point of Care 158 mg/dl (65-105)
--- NOTE | 2022-09-20 12:54 | PC.NURSE ---
DAUGHTER IS AT BEDSIDE, EXTENSIVE DIABETIC MEDICATION TEACHING PROVIDED, ERP IS AT BEDSIDE SPEAKING WITH PT AND DAUGHTER AT THIS TIME. NAD NOTED. PT IS ACTIVE, ALERT WITH IV MEDICATIONS INFUSING WITHOUT DIFFICULTY. WILL CONTINUE TO MONITOR.
[2022-09-20 13:45] LABS: Glucose Point of Care 150 mg/dl (65-105)
[2022-09-20] MEDS: metFORMIN HCL XR 500 MG TAB.SR.24H PO (13:55)
== END 2022-09-20 14:03 | disposition home or self-care (01) ==
PROVIDERS: Emergency Provider Emergency Medicine
DX: E11.649 Type 2 diabetes mellitus with hypoglycemia without coma (principal); E11.621 Type 2 diabetes mellitus with foot ulcer; E83.42 Hypomagnesemia; E78.5 Hyperlipidemia, unspecified; I10 Essential (primary) hypertension; I48.0 Paroxysmal atrial fibrillation; Z86.718 Personal history of other venous thrombosis and embolism; Z87.891 Personal history of nicotine dependence
CPT/HCPCS: 36415; 70450; 80053; 82948; 83735; 84484; 85025; 93005; 96361; 96365; 99284; A9270; J3475; J7042

== ENCOUNTER 2022-11-01 09:38 | Outpatient (CLI) | payer MEDICARE, OTHER, SELFPAY ==
[2022-11-01 09:56] LABS: Basophils Absolute Auto 0.1 K/mm3 (0.0-0.1); Basophils Percent Auto 0.7 % (0.2-1.2); Eosinophils Absolute Auto 0.3 K/mm3 (0-0.3); Hematocrit 45.8 % (42.0-52.0); Hemoglobin 13.7 g/dL (14.0-18.0); Immature Granulocyte Absolute 0.05 K/mm3 (0.00-0.031); Immature Granulocyte Percent A 0.6 % (0-0.5); Lymphocytes Absolute Auto 2.52 K/mm3 (0.9-3.2); Lymphocytes Percent Auto 30.7 % (18.3-44.2); Mean Corpuscular HGB Conc 29.9 g/dl (32-36); Mean Corpuscular Hemoglobin 24.7 pg (26-34); Mean Corpuscular Volume 82.7 fl (80-100); Mean Platelet Volume 10.6 fl (7.4-10.4); Monocytes Absolute Auto 0.8 K/mm3 (0.1-0.6); Monocytes Percent Auto 9.1 % (2.6-8.5); Neutrophils Absolute Auto 4.6 K/mm3 (1.3-6.7); Neutrophils Percent Auto 55.9 % (45.5-73.1); Platelet Count Result 229 k/mm3 (150-375); Red Blood Count 5.54 M/mm3 (4.6-6.20); Red Cell Distribution Width 18.1 % (11.5-14.5); White Blood Count 8.2 K/mm3 (4.5-10.0)
[2022-11-01 10:05] LABS: Hypochromasia 1+ (NORMAL); Ovalocytes 1+ (NORMAL); Platelet Estimate Adequate (Adequate); Poikilocytosis 1+ (NORMAL); Schistocytes None Seen (NORMAL)
[2022-11-01 10:06] LABS: Blood Urea Nitrogen 26 mg/dL (8-26); Carbon Dioxide 27 mmol/L (22-30); Chloride 108 mmol/L (98-109); Estimated Glomerular Filt Rate > 60; Glucose 86 mg/dL (70-105); Ionized Calcium (POC) 1.14 mmol/L (1.11-1.31); Potassium 5.4 mmol/L (3.5-4.9); Sodium 142 mmol/L (138-146)
[2022-11-01 16:40] LABS: Alanine Aminotransferase 27 U/L (6-50); Albumin Level 3.9 g/dL (3.5-5.1); Alkaline Phosphatase 99 U/L (38-126); Anion Gap 6 mmol/L (8-16); Aspartate Amino Transferase 75 U/L (17-59); Bilirubin,Total 0.9 mg/dL (0.2-1.3); Blood Urea Nitrogen 24 mg/dL (9-20); Calcium 8.8 mg/dL (8.4-10.2); Carbon Dioxide 25 mmol/L (22-30); Chloride 109 mmol/L (98-107); Estimated Glomerular Filt Rate > 60; Glucose 77 mg/dL (65-110); Potassium 5.5 mmol/L (3.4-5.0); Sodium 140 mmol/L (137-145)
[2022-11-03 14:02] LABS: Prostate Specific Antigen 0.4 ng/mL (< OR = 4.0)
== END 2022-11-01 09:39 | disposition home or self-care (01) ==
LOC: ANHLAB 09:40
PROVIDERS: Visit Provider Internal Medicine Hematology & Oncology
DX: D68.69 Other thrombophilia (principal); R39.198 Other difficulties with micturition; C61 Malignant neoplasm of prostate
CPT/HCPCS: 36415; 80047; 80053; 84153; 85025

== ENCOUNTER 2022-11-16 08:25 | Outpatient (CLI) | payer MEDICARE, OTHER, SELFPAY ==
--- NOTE | ~2022-11-16 | CT_ITS ---
Clinical Indication: Abnormal weight loss CT Scan of the Chest, Abdomen, and Pelvis with Contrast: Technique: Contiguous sections were acquired throughout the chest, abdomen, and pelvis after intraven ous administration of 100 cc of Omnipaque 350. Dose reduction technique was used on this scan by jay nelson automated exposure control and iterative reconstruction technique. The dose-length product (DL P) was 939.47 mGy-cm. COMPARISON: 03/29/2022 Findings: There is no evidence of any significant mediastinal, hilar or axillary lymphadenopathy. Coronary jean claude ry calcifications are present. No large central pulmonary embolus. No aortic aneurysm or dissection. There is no evidence of pleural or pericardial effusion. There is minimal bibasilar chronic interstitial disease. The liver, pancreas, gallbladder, and adrenal glands are within normal limits. Splenomegaly noted. Mu ltiple bilateral renal cysts are present. Aortic stent graft in place. There are atherosclerotic calc ifications of the aorta. No lymphadenopathy. No bowel obstruction or bowel wall thickening. There is no evidence to suggest acute appendicitis. Since wall thickening of the urinary bladder. Prostate gland is enlarged. Impression: Urinary bladder wall thickening with mild perivesical infiltrative change. Findings suggest cystitis. Correlate clinically. Splenomegaly, similar to prior exam. Reviewed, dictated and finalized at location M. Impression: Urinary bladder wall thickening with mild perivesical infiltrative change. Find ings suggest cystitis. Correlate clinically. Splenomegaly, similar to prior exam.
== END 2022-11-16 08:26 | disposition home or self-care (01) ==
PROVIDERS: PCP Internal Medicine; Visit Provider Internal Medicine Hematology & Oncology
DX: R63.4 Abnormal weight loss (principal); R93.41 Abnormal radiologic findings on diagnostic imaging of renal pelvis, ureter, or bladder; R16.1 Splenomegaly, not elsewhere classified
CPT/HCPCS: 71260; 74177; Q9967

== ENCOUNTER 2023-03-08 17:06 | Inpatient (IN) | payer MEDICARE, OTHER, SELFPAY ==
[2023-03-08] VITALS (28 sets, daily range): BP systolic 56–121; BP diastolic 39–66; PULSE 85–190; RESP 14–32; TEMP 36.8; O2SAT 93–99; BMI 23.2
--- NOTE | ~2023-03-08 | XR_ITS ---
EXAMINATION: XR chest PICC line Exam Date/Time: 03/19/2023 21:06 CDT HISTORY: PICC line insertion Comparison: 03/08/2023. RESULT: Lines, tubes, and devices: New right upper extremity PICC terminating at the cavoatrial junction. Th e superior portion of a vascular stent is visible at the inferior margin of the image. Lungs and pleura: Low volumes. Streaky bibasilar opacities, likely atelectasis. Cardiomediastinal silhouette: Stable. Other: No acute osseous or upper abdominal finding. IMPRESSION: New right upper extremity PICC, in good position. Reviewed, dictated and finalized at location K.
--- NOTE | ~2023-03-08 | CT_ITS ---
EXAMINATION: CT abdomen pelvis w con DATE: 03/20/2023 02:29 INDICATION: Urinary retention. Abdominal pain. TECHNIQUE: Computed tomography (CT) of the abdomen and pelvis was performed with 100 cc Omnipaque 350 intravenous contrast. The dose-length product was 1275.33 mGy-cm. Automated exposure control and ite rative reconstruction technique were employed. COMPARISON: CT dated 03/08/2023. FINDINGS: Small pleural effusions. There is bibasilar airspace disease, likely dependent atelectasis. Superimposed pneumonia not excluded. Heart size normal. There is diffuse atherosclerosis of the aort a. There is an endovascular aortic aneurysm repair with patency of the endograft and no evidence for communication between flow lumen and the aneurysm. Aneurysm measures 3 cm. Splenomegaly. Gallbladder is thickened with subtle pericholecystic fluid. Atrophic pancreas. There is bilateral hydronephrosis with urothelial enhancement bilaterally. There is a Whyte catheter in the b ladder. There are bilateral renal cysts, some of which are intermediate density, likely complicated. There is air in the bladder lumen, consistent with instrumentation. There is ascites. Nonobstructive bowel pattern. There is a right sacral decubitus ulcer. No evidence for underlying osteomyelitis. Sev ere lumbar spondylosis. IMPRESSION: 1. Bilateral hydronephrosis with urothelial enhancement, suspicious for ascending urinary tract infec tion and/or pyelonephritis. 2: Distended gallbladder with small amount of surrounding fluid. Cannot exclude cholecystitis. 3: Right sacral decubitus ulcer. No evidence for osteomyelitis. 4: Bibasilar airspace disease, most likely dependent atelectasis. Small pleural effusions. Reviewed, dictated and finalized at location A. IMPRESSION: 1. Bilateral hydronephrosis with urothelial enhancement, suspicious for ascendi ng urinary tract infection and/or pyelonephritis. 2: Distended gallbladder with small amount of surrounding fluid. Cannot exclude cholecystitis. 3: Right sacral decubitus ulcer. No evidence for osteomyelitis. 4: Bibasilar airspace disease, most likely dependent atelectasis. Small pleura l effusions.
--- NOTE | ~2023-03-08 | US_ITS ---
EXAMINATION: US renal BI DATE: 03/10/2023 11:10 INDICATION: Bilateral hydronephrosis TECHNIQUE: Multiple grayscale and Doppler ultrasound images of the kidneys were obtained. COMPARISON: CT, 03/08/2023 FINDINGS: The right kidney measures 14.6 x 6.8 x 7.1 cm. The left kidney measures 12.7 x 8.5 x 7.4 cm . The kidneys demonstrate normal parenchymal echogenicity. There are multiple cysts of both kidneys. There is moderate bilateral hydronephrosis with improvement since the comparison CT. The bladder is d ecompressed by Whyte catheter.. IMPRESSION: 1. Moderate bilateral hydronephrosis with improvement since the comparison CT post Whyte catheterizat ion. Reviewed, dictated and finalized at location L. IMPRESSION: 1. Moderate bilateral hydronephrosis with improvement since the comparison CT p ost Whyte catheterization.
--- NOTE | ~2023-03-08 | US_ITS ---
US renal BI 03/20/2023 10:07 Procedure: Realtime transabdominal ultrasound of the kidneys and bladder. Indication: Acute renal insufficiency Comparison: 03/10/2023 Findings: Renal echotexture is normal bilaterally without solid mass or renal calculus. There are mul tiple bilateral renal cysts, largest on the right measuring 3.7 cm and 5.5 cm on the left. The right kidney measures 12.6 cm and left kidney measures 13.4 cm. There is a Whyte catheter in the bladder. T here is mild bilateral hydronephrosis. Impression: 1: Bilateral renal cysts. 2: Mild bilateral hydronephrosis. Reviewed, dictated and finalized at location A. Impression: 1: Bilateral renal cysts. 2: Mild bilateral hydronephrosis.
--- NOTE | ~2023-03-08 | CT_ITS ---
EXAMINATION: CT abdomen pelvis w con DATE: 03/08/2023 19:19 INDICATION: Nausea and vomiting. TECHNIQUE: Computed tomography (CT) of the abdomen and pelvis was performed with 100 mL Omnipaque 350 intravenous contrast. Automated exposure control and iterative reconstruction technique were employe d. The dose-length product was 921.18 mGy-cm. COMPARISON: CT abdomen and pelvis 11/16/2022, CT abdomen 09/26/2018 FINDINGS: The visualized portions of the lung bases demonstrate mild atelectasis. There is mild bronc hiectasis bilaterally. There is a trace pleural effusions. The heart size is normal. There are lopez ry artery calcifications. No pericardial effusion. There is periportal edema in the liver. There is a 7 mm cyst in the liver. The gallbladder is normal in size. Again seen is mild splenomegaly. The panc reas and adrenal glands are normal. There are cysts in the kidneys measuring up to 5.6 cm on the left . There are hemorrhagic cysts in the kidneys measuring up to 5.8 cm on the left. There is moderate bi lateral hydronephrosis and hydroureter. There is urothelial enhancement in the ureters. The bladder i s distended. There is diffuse bladder wall thickening with trabeculated wall. There are no dilated lo ops of bowel. The appendix is normal. There is calcified atherosclerosis of the aorta and many of the other arteries. There is a stent graft in abdominal aorta and the common iliac arteries. 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 There is a sacral decubitus ulcer. No evidence of osteo myelitis. There is severe lumbar spondylosis. IMPRESSION: 1. Distended bladder with bladder wall thickening, consistent with cystitis. 2. Moderate bilateral hydronephrosis and hydroureter with urothelial enhancement, consistent with nahomi litis. 3. Sacral decubitus ulcer. No evidence of osteomyelitis. 4. Stable mild splenomegaly. Reviewed, dictated and finalized at location E. IMPRESSION: 1. Distended bladder with bladder wall thickening, consistent with cystitis. 2. Moderate bilateral hydronephrosis and hydroureter with urothelial enhancemen t, consistent with pyelitis. 3. Sacral decubitus ulcer. No evidence of osteomyelitis. 4. Stable mild splenomegaly.
--- NOTE | ~2023-03-08 | XR_ITS ---
EXAMINATION: XR chest 1V portable DATE: 03/08/2023 18:01 INDICATION: Chest pain. TECHNIQUE: A single frontal view of the chest was obtained. COMPARISON: Chest 2 views 08/20/2022 FINDINGS: The chest demonstrates clear lungs without pneumonia, pleural effusion, or pneumothorax. Th e heart size is normal. IMPRESSION: 1. No acute cardiopulmonary disease. Reviewed, dictated and finalized at location E.
--- NOTE | ~2023-03-08 | XR_ITS ---
EXAMINATION: XR chest port-a-cath/central DATE: 03/08/2023 21:25 INDICATION: Central line placement. TECHNIQUE: A single frontal view of the chest was obtained. COMPARISON: Chest single view 03/08/2023 at 5:59 PM FINDINGS: A skin fold overlies left hemithorax. No pneumonia, pleural effusion, or pneumothorax. The heart size is normal. A right internal jugular central venous catheter is seen with tip at the superi or cavoatrial junction. IMPRESSION: 1. Central line tip at the superior cavoatrial junction. Reviewed, dictated and finalized at location E.
--- NOTE | 2023-03-08 17:23 | ECG_ITS ---
Measurements Intervals [place] Rate: 176 P: CO: 0 QRS: 51 QRSD: 78 T: 61 QT: 233 QTc: 399 Interpretive Statements ATRIAL FIBRILLATION WITH RAPID VENTRICULAR RESPONSE LOW QRS VOLTAGE- DIFFUSE LEADS ABNORMAL ECG COMPARED TO ECG 09/20/2022 11:58:32 HEART RATE HAS INCREASED Electronically Signed On 03-08-2023 20:23:30 CDT by Larry Juan D.O.
--- NOTE | 2023-03-08 17:27 | ED.GENADULT ---
HPI - General Adult General Chief complaint: Unspecified <Lorna Garcia PA-C - Last Filed: 03/08/23 22:07> Stated complaint: low bp, low bs <Lorna Garcia PA-C - Last Filed: 03/08/23 22:07> Time Seen by Provider: 03/08/23 17:22 <Lorna Garcia PA-C - Last Filed: 03/08/23 22:07> Source: patient <Lorna Garcia PA-C - Last Filed: 03/08/23 22:07> Mode of arrival: ambulatory <CHINA Albarran Last Filed: 03/08/23 22:07> Limitations: no limitations <Lorna Garcia PA-C - Last Filed: 03/08/23 22:07> History of Present Illness HPI narrative: Patient is a 72-year-old male, with past medical history of A-fib on Eliquis and metoprolol, who presents to the ED with report of slurred speech. Patient reports he was feeling fine, but states his daughter thought he was talking funny. She thought his blood sugar may be low. She brought him here to the ER for further evaluation. Patient denies any acute complaints. He denies feeling weak. Denies focal weakness. Denies numbness. He is alert and oriented x4. He states he has been feeling at his baseline in the last few days. Denies any chest pain or shortness of breath. Denies feeling like his heart is racing at this time. <Lorna Garcia PA-C - Last Filed: 03/08/23 22:07> Related Data Home medications: Home Medications Medication Instructions Recorded Confirmed montelukast 10 mg tablet 10 mg PO DAILY 05/11/21 09/20/22 glimepiride 4 mg tablet 4 mg PO BID 09/20/22 09/20/22 icosapent ethyl 1 gram capsule 4 g PO DAILY 09/20/22 09/20/22 (Vascepa) pravastatin 40 mg tablet 40 mg PO DAILY 09/20/22 09/20/22 sitagliptin phos 50 mg-metformin 2 tablet PO DAILY 09/20/22 09/20/22 ER 1,000 mg tablet,extend rel 24h mp (Janumet XR) <Lorna Garcia PA-C - Last Filed: 03/08/23 22:07> Allergies/adverse reactions: Allergies Allergy/AdvReac Type Severity Reaction Status Date / Time No Known Allergies Allergy Verified 03/08/23 17:07 <Lorna Garcia PA-C - Last Filed: 03/08/23 22:07> Review of Systems Review of Systems: CONSTITUTIONAL: Denies fever, chills, or sweats. EYES: Denies visual changes. CARDIOVASCULAR: Denies chest pain. RESPIRATORY: Denies dyspnea. GASTROINTESTINAL: Denies abdominal pain, nausea, vomiting. MUSCULOSKELETAL: Denies back pain, joint pain, or myalgia. NEUROLOGIC: See HPI. 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 <Lorna Garcia PA-C - Last Filed: 03/08/23 22:07> Family History Family History: Family History Father Cancer Hypertension Heart disease Mother Cancer Diabetes mellitus Hypertension Heart disease Sibling Cancer Hypertension Heart disease Other Asthma Carcinoma of colon Cerebrovascular accident Depression Family history of arthritis Family history of cardiovascular disease Family history of chronic obstructive pulmonary disease Family history of
[2023-03-08 17:36] LABS: Glucose Point of Care 135 mg/dl (65-105)
[2023-03-08] MEDS: MIDAZOLAM HCL (*CRX) 2 MG/2 ML VIAL IV PUSH (17:38)
[2023-03-08 17:39] LABS: Basophils Absolute Auto 0.1 K/mm3 (0.0-0.1); Basophils Percent Auto 0.4 % (0.2-1.2); Eosinophils Absolute Auto 0.1 K/mm3 (0-0.3); Eosinophils Percent Auto 0.4 % (0-4.4); Hematocrit 35.4 % (42.0-52.0); Hemoglobin 10.5 g/dL (14.0-18.0); Immature Granulocyte Absolute 0.24 K/mm3 (0.00-0.031); Immature Granulocyte Percent A 1.3 % (0-0.5); Lymphocytes Absolute Auto 3.45 K/mm3 (0.9-3.2); Mean Corpuscular HGB Conc 29.7 g/dl (32-36); Mean Corpuscular Hemoglobin 24.5 pg (26-34); Mean Corpuscular Volume 82.5 fl (80-100); Mean Platelet Volume 10.2 fl (7.4-10.4); Monocytes Percent Auto 5.2 % (2.6-8.5); Neutrophils Absolute Auto 14.4 K/mm3 (1.3-6.7); Neutrophils Percent Auto 74.7 % (45.5-73.1); Platelet Count Result 411 k/mm3 (150-375); Red Blood Count 4.29 M/mm3 (4.6-6.20); Red Cell Distribution Width 19.2 % (11.5-14.5); White Blood Count 19.2 K/mm3 (4.5-10.0)
--- NOTE | 2023-03-08 17:44 | ECG_ITS ---
Measurements Intervals [place] Rate: 106 P: 88 [place]: 197 QRS: 54 QRSD: 79 T: 51 QT: 333 QTc: 443 Interpretive Statements SINUS TACHYCARDIA ATRIAL PREMATURE COMPLEX LOW QRS VOLTAGE- DIFFUSE LEADS CANNOT RULE OUT SEPTAL INFARCT, AGE INDETERMINATE BASELINE ARTIFACT- I, II, III, AVL ABNORMAL ECG COMPARED TO ECG 03/08/2023 17:27:01 SINUS TACHYCARDIA NOW PRESENT Electronically Signed On 03-09-2023 7:01:12 CDT by Larry Juan D.O.
--- NOTE | 2023-03-08 17:44 | PC.NURSE ---
Dr. Quinn at bedside, Pt hooked up to crash cart. VORB for 2mg of Versed. Synchronized cardioversion performed. 150J at 1739. Additional shock given at 200J at 1743. Pt alert and oriented at this time.
[2023-03-08] MEDS: MAGNESIUM SULF 2 GM/WATER 50ML 2 GM/50 ML BAG IVPB (17:45)
[2023-03-08] MEDS: CALCIUM GLUC 2,000 MG/NS 100ML 2,000 MG/100 ML BAG 100 MG IVPB (17:46)
[2023-03-08] MEDS: SODIUM CHLORIDE 0.9% IV 1,000 ML 999 ML IV CONT ×3 (17:46→18:24)
[2023-03-08 17:51] LABS: Alanine Aminotransferase 18 U/L (6-50); Albumin Level 2.8 g/dL (3.5-5.1); Alkaline Phosphatase 124 U/L (38-126); Anion Gap 10 mmol/L (8-16); Aspartate Amino Transferase 31 U/L (17-59); Bilirubin,Total 0.9 mg/dL (0.2-1.3); Blood Urea Nitrogen 45 mg/dL (9-20); Calcium 7.6 mg/dL (8.4-10.2); Carbon Dioxide 18 mmol/L (22-30); Chloride 102 mmol/L (98-107); Estimated Glomerular Filt Rate 50; Glucose 139 mg/dL (65-110); Lipase 23 U/L (23-300); Magnesium 1.9 mg/dL (1.6-2.3); Sodium 130 mmol/L (137-145)
[2023-03-08 17:52] LABS: INR 1.8; Prothrombin Time 22.3 Seconds (11.1-14.7)
[2023-03-08 17:53] LABS: Partial Thromboplastin Time 50.9 SECONDS (22.3-36.8)
[2023-03-08 18:02] LABS: Hypochromasia 1+ (NORMAL); Platelet Estimate Increased (Adequate); Schistocytes None Seen (NORMAL)
[2023-03-08 18:03] LABS: NT Pro B Type Natriuretic Pept 2100 pg/mL (19.9-100); Troponin I < 0.012 ng/mL (0.000-0.034)
[2023-03-08] MEDS: PANTOPRAZOLE SODIUM IV 40 MG VIAL IV PUSH (18:49)
[2023-03-08 18:51] LABS: Lactic Acid Reflex 1.8 mmol/L (0.7-2.0)
[2023-03-08] MEDS: VANCOMYCIN 1,000 MG/NS 250 ML 1,000 MG/250 ML BAG 250 MG IVPB (19:56)
[2023-03-08] MEDS: CEFEPIME 2 GM/NS 50 ML 2 GM/50 ML BAG IVPB (19:56)
[2023-03-08 20:01] LABS: Glucose Point of Care 123 mg/dl (65-105)
[2023-03-08 20:14] LABS: Appearance Urine Turbid (Clear); Bacteria Urine 2+ /hpf; Bilirubin Urine Negative (Negative); Blood Urine 3+ (Negative); Color Urine Yellow (Yellow); Glucose Urine UA Negative (Negative); Ketones Urine Negative (Negative); Leukocyte Esterase Ur 3+ LEU/UL (Negative); Need Manual Microscopic Reviewed; Nitrate Urine Negative (Negative); Protein Urine 2+ mg/dL (Negative); RBC Urine 51-100 /hpf (0-2); Specific Grav Ur 1.009 (1.001-1.035); Squamous Epithelial Cell Urine Moderate /hpf (Few); Urobilinogen Urine 0.2 mg/dL (<2.0); WBC Urine >100 /hpf
[2023-03-08 20:23] LABS: Add Urine Microscopic? YES
--- NOTE | 2023-03-08 21:08 | PC.NURSE ---
EDP at bedside for central line placement.
--- NOTE | 2023-03-08 21:21 | ED.GENADULT ---
HPI - General Adult General Chief complaint: Unspecified Stated complaint: low bp, low bs Time Seen by Provider: 03/08/23 17:22 Source: patient Mode of arrival: ambulatory Limitations: no limitations Related Data Home Medications Medication Instructions Recorded Confirmed montelukast 10 mg tablet 10 mg PO DAILY 05/11/21 09/20/22 glimepiride 4 mg tablet 4 mg PO BID 09/20/22 09/20/22 icosapent ethyl 1 gram capsule 4 g PO DAILY 09/20/22 09/20/22 (Vascepa) pravastatin 40 mg tablet 40 mg PO DAILY 09/20/22 09/20/22 sitagliptin phos 50 mg-metformin 2 tablet PO DAILY 09/20/22 09/20/22 ER 1,000 mg tablet,extend rel 24h mp (Janumet XR) Allergies Allergy/AdvReac Type Severity Reaction Status Date / Time No Known Allergies Allergy Verified 03/08/23 17:07 [facility] Past Medical History Medical History Chronic anticoagulation Chronic deep vein thrombosis (DVT) of left lower extremity Deep venous thrombosis Diabetes mellitus type 2, uncontrolled 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 Family History Family History Father Cancer Hypertension Heart disease Mother Cancer Diabetes mellitus Hypertension Heart disease Sibling Cancer Hypertension Heart disease Other Asthma Carcinoma of colon Cerebrovascular accident Depression Family history of arthritis Family history of cardiovascular disease Family history of chronic obstructive pulmonary disease Family history of malignant neoplasm Family history of malignant neoplasm of breast in first degree relative Family history of mental disorder Malignant neoplasm of prostate Social History Social History Social History: Surrogate medical decision maker: Rocio Peña, daughter. Code status: Full code. Smoking status: Former smoker Tobacco type: cigarettes Second hand tobacco smoke exposure: No Alcohol intake: never Substance use: never Substance use type: does not use Lack of Transportation: No Lack of Food: Never True Current Housing: I Have Housing Concerned About Future Housing: No Difficulty Paying Gas/Electric Bills: No Difficulty Paying for Meds: No Currently Unemployed: No Education: High School Diploma/GED Difficulty w/ Childcare or Family Care: No Spiritual care concerns: No Course Vital Signs Vital signs: Vital Signs Temperature 98.2 F 03/08/23 17:19 Pulse Rate 190 H 03/08/23 17:19 Respiratory Rate 20 03/08/23 17:19 Blood Pressure 75/39 L 03/08/23 17:19 Pulse Oximetry 97 03/08/23 17:19 Oxygen Delivery Room Air 03/08/23 17:19 Temperature 98.2 F 03/08/23 17:19 Pulse Rate 95 03/08/23 21:56 Respiratory Rate 17 03/08/23 21:56 Blood Pressure 89/51 L 03/08/23 21:56 Pulse Oximetry 99 03/08/23 21:56 Oxygen Delivery Room Air 03/08/23 17:19 Procedures Central Line Placement Right IJ: Central Line Date: 03/08/23 Discussed w/ the patient/family/POA,the placement of a central venous catheter, including its clinical necessity/indication & associated potential risks, benifits and alternatives.: Yes The patient/family/POA understand(s) and acknowledge(s) the need to proceed with central venous catheter insertion as an important element of the patient's clinical management.: Yes Time Out Performed: Yes Patient Placed on Monitor/Pulse Ox: Yes Max. Sterile Barrier Technique: Caps, large sterile sheet and h
[2023-03-08 21:30] LABS: Troponin I < 0.012 ng/mL (0.000-0.034)
--- NOTE | 2023-03-08 21:41 | PM.IMHP ---
H&P: HPI History of Present Illness Date/Time: 03/08/23 21:41 Chief Complaint: AMS Narrative: THIS IS A 73-YEAR-OLD MALE WITH PAST MEDICAL HISTORY SIGNIFICANT FOR TYPE DIABETES MELLITUS, ATRIAL FIBRILLATION RATE CONTROLLED ANTICOAGULATED, CHRONIC PAIN, CHRONIC SACRAL DECUBITUS ULCER, HYPERTENSION, BENIGN PROSTATIC HYPERPLASIA. PATIENT WAS BROUGHT TO THE EMERGENCY ROOM DUE TO ALTERED MENTAL STATUS, HE WAS FOUND TO HAVE LOW BLOOD PRESSURE . PATIENT CAN NOT REALLY PROVIDE ANY MEANINGFUL HISTORY HE DENIES ANY NAUSEA, VOMITING, DIARRHEA, ABDOMINAL PAIN, HE STATES THAT HE HAS BEEN HIS USUAL STATE OF HEALTH. PRELIMINARY WORKUP WAS SIGNIFICANT FOR URINALYSIS WITH NUMEROUS WBCS PRESENT CBC SHOWED A LEUKOCYTE COUNT OF 19,000 CHEMISTRY PANEL ARE BUN 45 CREATININE 1.4 BNP 2100. EXAMINATION: XR chest 1V portable DATE: 03/08/2023 18:01 INDICATION: Chest pain. TECHNIQUE: A single frontal view of the chest was obtained. COMPARISON: Chest 2 views 08/20/2022 FINDINGS: The chest demonstrates clear lungs without pneumonia, pleural effusion, or pneumothorax. The heart size is normal. IMPRESSION: 1. No acute cardiopulmonary disease. EXAMINATION: CT abdomen pelvis w con DATE: 03/08/2023 19:19 INDICATION: Nausea and vomiting. TECHNIQUE: Computed tomography (CT) of the abdomen and pelvis was performed with 100 mL Omnipaque 350 intravenous contrast. Automated exposure control and iterative reconstruction technique were employed. The dose-length product was 921.18 mGy-cm. COMPARISON: CT abdomen and pelvis 11/16/2022, CT abdomen 09/26/2018 FINDINGS: The visualized portions of the lung bases demonstrate mild atelectasis. There is mild bronchiectasis bilaterally. There is a trace pleural effusions. The heart size is normal. There are coronary artery calcifications. No pericardial effusion. There is periportal edema in the liver. There is a 7 mm cyst in the liver. The gallbladder is normal in size. Again seen is mild splenomegaly. The pancreas and adrenal glands are normal. There are cysts in the kidneys measuring up to 5.6 cm on the left. There are hemorrhagic cysts in the kidneys measuring up to 5.8 cm on the left. There is moderate bilateral hydronephrosis and hydroureter. There is urothelial enhancement in the ureters. The bladder is distended. There is diffuse bladder wall thickening with trabeculated wall. There are no dilated loops of bowel. The appendix is normal. There is calcified atherosclerosis of the aorta and many of the other arteries. There is a stent graft in abdominal aorta and the common iliac arteries. 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 There is a sacral decubitus ulcer. No evidence of osteomyelitis. There is severe lumbar spondylosis. IMPRESSION: 1. Distended bladder with bladder wall thickening, consistent with cystitis. 2. Moderate bilateral hydronephrosis and hydroureter with urothelial enhancement, consistent with pyelitis. 3. Sacral decubitus ulcer. No evidence of osteomyelitis. 4. Stable mild splenomegaly. PATIENT IS BEEN ADMITTED FOR FURTHER EVALUATION MANAGEMENT AND TREATMENT. 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 Family History Family History Father Can
[2023-03-08] MEDS: NOREPINEPHRINE 8 MG/D5W 250 ML 8 MG/250 ML BAG 9.38 MG IV CONT (22:01)
[2023-03-08] MEDS: metroNIDAZOLE 500 MG/ISO 100ML 500 MG/100 ML BAG 100 MG IVPB (22:02)
[2023-03-08] MEDS: VANCOMYCIN 1,250 MG/NS 250 ML 1,250 MG/250 ML BAG 166.67 MG IVPB (22:15)
--- NOTE | 2023-03-08 23:46 | ADMGEN ---
This patient, John Warren, was admitted to Intensive Care Unit-10 on 03/08/23 at 2316. Patient/family oriented to hospital policies and general routines including ID bracelet, bed and alarms, visiting hours, pain management, procedures, bathroom and other care routines, personal items, smoking policy, room service/diet, and visiting hours. Information on how to activate the Rapid Response Team has been discussed. Patient/Family are encouraged to report perceived risks to care and to ask questions if they do not understand what they are told or what they should do.
[2023-03-09] VITALS (73 sets, daily range): BP systolic 75–138; BP diastolic 45–86; PULSE 98–128; RESP 0–33; TEMP 36.4–37.5; O2SAT 95–100; BMI 23.2
[2023-03-09 00:38] LABS: Troponin I < 0.012 ng/mL (0.000-0.034)
[2023-03-09 05:48] LABS: Hematocrit 31.4 % (42.0-52.0); Hemoglobin 9.2 g/dL (14.0-18.0); Mean Corpuscular HGB Conc 29.3 g/dl (32-36); Mean Corpuscular Hemoglobin 24.1 pg (26-34); Mean Corpuscular Volume 82.4 fl (80-100); Mean Platelet Volume 9.7 fl (7.4-10.4); Platelet Count Result 323 k/mm3 (150-375); Red Blood Count 3.81 M/mm3 (4.6-6.20); Red Cell Distribution Width 18.8 % (11.5-14.5); White Blood Count 11.5 K/mm3 (4.5-10.0)
[2023-03-09 05:55] LABS: Anion Gap 4 mmol/L (8-16); Blood Urea Nitrogen 39 mg/dL (9-20); Calcium 7.8 mg/dL (8.4-10.2); Carbon Dioxide 19 mmol/L (22-30); Chloride 112 mmol/L (98-107); Estimated CRCL calculation 55 ml/min; Estimated Glomerular Filt Rate 60; Glucose 205 mg/dL (65-110); Magnesium 2.3 mg/dL (1.6-2.3); Phosphorus 5.3 mg/dL (2.5-4.5); Potassium 4.2 mmol/L (3.4-5.0); Sodium 135 mmol/L (137-145)
[2023-03-09] MEDS: metroNIDAZOLE 500 MG/ISO 100ML 500 MG/100 ML BAG 100 MG IVPB ×3 (06:32→21:50)
[2023-03-09 08:08] LABS: Glucose Point of Care 208 mg/dl (65-105)
[2023-03-09] MEDS: APIXABAN 5 MG TABLET PO ×2 (08:26→21:48)
[2023-03-09] MEDS: MONTELUKAST SODIUM 10 MG TABLET PO (08:26)
[2023-03-09] MEDS: PREGABALIN (*CRX) 75 MG CAPSULE 150 MG PO (08:27)
[2023-03-09] MEDS: PANTOPRAZOLE 40 MG TABLET PO (08:27)
[2023-03-09] MEDS: ASPIRIN 81 MG CHEWABLE TABLET PO (08:27)
[2023-03-09] MEDS: COLLAGENASE OINT 30 GM TUBE 1 APPLIC TOPICAL (08:27)
[2023-03-09] MEDS: MUPIROCIN 2% OINT 22 GM TUBE 1 APPLIC TOPICAL (08:27)
[2023-03-09] MEDS: TAMSULOSIN HCL 0.4 MG CAPSULE PO (08:27)
[2023-03-09] MEDS: CEFEPIME 1 GM/NS 50 ML 1 GM/50 ML BAG IVPB ×2 (08:31→21:49)
[2023-03-09] MEDS: SODIUM CHLORIDE 0.9% IV 1,000 ML 75 ML IV CONT (08:36)
--- NOTE | 2023-03-09 08:53 | PC.NURSE ---
0850 - Orders received from Dr Padilla to place mcgovern catheter, explained order to patient. Patient refused, stated he has had bad experiences in the past with catheter placements. I explained the importance and benefits to adhere to the specialist consulted on his case to know avail.
--- NOTE | 2023-03-09 09:27 | WPDCNINT ---
Assessment and Plan Assessment and plan (1) Septic shock: Code(s): A41.9 - Sepsis, unspecified organism; R65.21 - Severe sepsis with septic shock Status: Acute Assessment and Plan: Patient presented with generalized weakness, altered mental status, hypotension, acute kidney injury, atrial fibrillation RVR -patient received 3 L IV fluids in the ER despite his his blood pressures remain low -likely source is likely a pyelonephritis/cystitis -central line was inserted and patient was started vasopressors -continue Levophed to maintain MAP > 65 mmHg at all times propofol adequate end organ perfusion -patient with acute kidney injury, which has resolved -03/08: blood cultures and urine cultures have been obtained and pending -wound culture has been ordered -patient currently on cefepime and vancomycin and Flagyl -will start maintenance IV fluids (2) Acute pyelitis: Code(s): N10 - Acute pyelonephritis Status: Acute Assessment and Plan: Treatment as above 03/08/[address] scan 1. Distended bladder with bladder wall thickening, consistent with cystitis. 2. Moderate bilateral hydronephrosis and hydroureter with urothelial enhancement, consistent with pyelitis. 3. Sacral decubitus ulcer. No evidence of osteomyelitis. 4. Stable mild splenomegaly. (3) Hydronephrosis: Code(s): N13.30 - Unspecified hydronephrosis Status: Acute Assessment and Plan: Urology has been consulted for hydronephrosis and hydroureter (4) Acute renal insufficiency: Code(s): N28.9 - Disorder of kidney and ureter, unspecified Status: Acute Assessment and Plan: Patient with acute kidney injury with creatinine of 1.4 on admission -adequate fluid resuscitation -adequate urine output -creatinine has been normal -will continue to monitor renal function, electrolytes and urine output -continue maintenance IV fluids (5) Anemia: Qualifiers: Anemia type: unspecified type Qualified Code(s): D64.9 - Anemia, unspecified Code(s): D64.9 - Anemia, unspecified Status: Acute Assessment and Plan: Will obtain iron panel, vitamin B12, folic acid and stool occult (6) Atrial fibrillation with RVR: Code(s): I48.91 - Unspecified atrial fibrillation Status: Acute Assessment and Plan: Patient with AFib RVR status post cardioversion x2 on admission on 03/08/2022 -currently in rapid ventricular rhythm -will start amiodarone infusion since patient is on pressors (7) Diabetes mellitus type 2, uncontrolled: Status: Acute Assessment and Plan: Accu-Cheks and sliding scale insulin (8) Hypertension: Code(s): I10 - Essential (primary) hypertension Status: Acute Assessment and Plan: Hold all antihypertensives that was ordered by the hospitalist (9) Decubitus ulcer: Code(s): L89.90 - Pressure ulcer of unspecified site, unspecified stage Status: Acute Assessment and Plan: Wound care to evaluate the patient -will obtain wound culture Plan DVT prophylaxis: Eliquis Stress ulcer prophylaxis: Protonix IV q.12 hours Nutrition: Diabetic diet Code Status: Full code Critical Care Time Spent: 49 minutes Due to a high probability of clinically significant, life threatening deterioration, the patient required my highest level of preparedness to intervene emergently and I personally spent this critical care time directly and personally managing the patient. This critical care time included obtaining a history; examining the patient; pulse oximetry; ordering and review of studies; arranging urgent treatment with development of a management plan; evaluation of patient's response to treatment; frequent reassessment; and discussions with other providers. It was exclusive of separately billable procedures and treating other patients and teaching time. Please see Assessment and Plan section and the rest of the note for further i
--- NOTE | 2023-03-09 09:54 | WPDURCON ---
Assessment and Plan Assessment and plan (1) Hydronephrosis: Code(s): N13.30 - Unspecified hydronephrosis Status: Acute Assessment and Plan: I recommended as did Dr. Padilla and the ICU nurse he have a mcgovern placed d/t retention noted on CT scan and a bladder scan of >1000cc. He has refused several times. He is fully aware that refusing a mcgovern catheter with retention and pyelitis/sepsis can cause . He states that catheters are too painful for him, and I offered to use lidojet, but he still declined knowing that ultimately without full drainage of his bladder and sepsis he will likely not survive. (2) Septic shock: Code(s): A41.9 - Sepsis, unspecified organism; R65.21 - Severe sepsis with septic shock Status: Acute Assessment and Plan: Continue IV antibiotics, tailor to culture sensitivity. He understands that treatment of this infection may resolve, but without drainage of his bladder, he will have recurrent infections and possible recurrent sepsis which he fully understands. (3) Acute pyelitis: Code(s): N10 - Acute pyelonephritis Status: Acute (4) UTI (urinary tract infection): Qualifiers: Hematuria presence: with hematuria Urinary tract infection type: acute cystitis Qualified Code(s): N30.01 - Acute cystitis with hematuria Code(s): N39.0 - Urinary tract infection, site not specified Status: Acute (5) Retention of urine: Code(s): R33.9 - Retention of urine, unspecified Status: Acute (6) BPH (benign prostatic hyperplasia): Code(s): N40.0 - Benign prostatic hyperplasia without lower urinary tract symptoms Status: Acute Assessment and Plan: Continue Tamsulosin, Start Finasteride. Urology Consult Note HPI Date Seen: 03/09/23 Time Seen: 09:55 Requesting Physician: Sima Estes MD Primary Care Provider: Mario SalmeronMD Consult Narrative Reason for consult: Sepsis/Retention Narrative: John Warren is a 73 year old male who presented to the ER on 03/08/23 for slurred speech and feeling faint. He was evaluated and found to have a distended bladder with bladder wall thickening, moderate bilateral hydronephrosis and hydroureter with enhancement consistent with pyelitis on CT scan. He is hypotensive, tachycardic and tachypneic. WBC is 11.5 today, creatinine is 1.20, UA is suggestive of a UTI, urine and blood cultures are pending. He has a history of BPH and takes Tamsulosin at home. He c/o nocturia, incontinence, frequency, urgency and has to change his depends multiple times a day at home. He denies hematuria or dysuria at this time. He is afebrile. His PVR is >1000cc on bladder scan. He was recommended to have a mcgovern placement over the phone by Dr. Padilla on initial consult but is refusing to nursing care. He remains on Cefepime and pressors d/t his hypotensive, septic state. Review of Systems Cardiovascular: Cardiovascular: Denies chest pain Respiratory: Respiratory: Reports dyspnea Gastrointestinal: Gastrointestinal: Denies abdominal pain, Denies nausea and Denies vomiting Genitourinary: Genitourinary: Denies hematuria, Denies dysuria, Denies flank pain, Reports nocturia, Reports urinary frequency, Reports urinary hesitancy, Reports urinary incontinence and Reports urinary urgency [facility] Past Medical History Medical History Chronic anticoagulation Chronic deep vein thrombosis (DVT) of left lower extremity Deep venous thrombosis Diabetes mellitus type 2, 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
--- NOTE | 2023-03-09 10:22 | PC.NURSE ---
0930- Bladder scanned patient showed 1000mls in bladder , notified urology, and further educated patient on the importance of the catheter placement. Patient states that he will think about it and let us know .
[2023-03-09 11:14] LABS: Folic Acid 8.3 ng/mL (2.76->20)
[2023-03-09] MEDS: INSULIN ASPART (*BKC) 100 UNITS/ML SUB-Q ×2 (12:04→18:22)
--- NOTE | 2023-03-09 12:10 | PM.CNCAR ---
Assessment and Plan Assessment and plan (1) Atrial fibrillation with rapid ventricular response: Code(s): I48.91 - Unspecified atrial fibrillation Status: Acute Assessment and Plan: Patient had AFib RVR in the emergency room, with hypotension and had was emergently cardioverted to sinus tachycardia. He has maintained sinus rhythm. Unclear to me if his AFib has been persistent recently or paroxysmal, but in any case he is now in sinus rhythm. --discussed life-threatening situation requiring emergent cardioversion, hospital course etc.. --continue IV amiodarone --continue Eliquis --resume home beta-alec and switch to p.o. amiodarone after recovery --follow-up with usual ruby on rails software developer, Dr. Horn, after discharge (2) Septic shock: Code(s): A41.9 - Sepsis, unspecified organism; R65.21 - Severe sepsis with septic shock Status: Acute Assessment and Plan: Patient admitted with septic shock from pyelitis with bilateral hydronephrosis. On Levophed. Mentating well, blood pressure stable today. --treatment per felt hooker (3) CAD (coronary artery disease): Code(s): I25.10 - Atherosclerotic heart disease of [place] coronary artery without angina pectoris Status: Acute Assessment and Plan: History of CAD an RCA stent in 2016, stable with no chest pain or CHF. --resume pravastatin and+/- ASA upon recovery History of Present Illness History of Present Illness Consult date/time: 03/09/23 12:10 Reason For Visit: Septic Shock,UTI/Pyelitis,AFIB w/RVR,ANTONY,Decub [facility] Narrative: John Warren is a 73 year-old male whom we were asked to see at the request of ALEXANDRA Ralph, for advice and opinion regarding his AFib RVR in consultation. His usual ruby on rails software developer is Dr. Horn at [facility]. He has a history of paroxysmal atrial fibrillation, CAD status post PCI to RCA in 2016, hypertension and hyperlipidemia. Mr. Davila was hospitalized [facility] from July to August 2022 with sepsis, diabetic foot ulcer, DVT of left upper extremity, and AFib RVR. He was discharged on amiodarone 200 mg q.d. and metoprolol XL 50 mg q.d. as well as Eliquis. Mr. Davila was hospitalized at [facility] from 01/10/2023 to 01/15 with sepsis and septic shock, atrial fibrillation, sacral decubitus, uncontrolled diabetes, hypotension. He blames [facility] for his decubitus ulcer. He was discharged to long-term on metoprolol 12.5 mg b.i.d. and Eliquis. Echo during the hospital stay showed EF 60%, diastolic dysfunction, mild tricuspid regurgitation. The patient arrived to the emergency room yesterday with slurred speech, blood pressure in the 70s, AFib RVR with heart rates in the 180s to 190s. He underwent emergent cardiac cardioversion successfully but remained hypotensive. He has received 3 L of fluid. He was transferred to the ICU with diagnosis of urosepsis, pyelitis, bilateral hydronephrosis.. He has been started on Levophed and amiodarone intravenously. Currently he is denying any shortness of breath or chest pain, and is very unhappy that he had to be shocked in the emergency room as he feels it was unnecessary. Troponins negative x3. ProBNP 2100. 03/08/2023 EKG at 5:21 p.m.: AFib RVR rate 176, low voltage, nonspecific ST changes. 03/08/2023 at 5:44 p.m.: Sinus tachycardia rate 106, low voltage Both EKGs personally reviewed. Telemetry: Sinus tachycardia, first-degree AV block 03/08/2023 chest x-ray: No acute cardiopulmonary disease. Personally reviewed, agree CT and other labs reviewed. Review of Systems Review of Systems: Gets around with a walker at home. Constitutional: Constitutional: Denies fever(s) Eyes: Eyes: Reports no additional eye complaints ENT: Denies epistaxis Cardiovascular: Cardiovascular: Denies chest pain, Denies pedal edema, Denies lightheadedness and Denies dyspnea Respiratory: Respiratory: Denies chest
[2023-03-09 12:19] LABS: Glucose Point of Care 279 mg/dl (65-105)
[2023-03-09] MEDS: CENTRAL LINE FLUSH 10 ML IV PUSH ×2 (13:49→21:50)
[2023-03-09] MEDS: MIDAZOLAM HCL (*CRX) 2 MG/2 ML VIAL 1 MG IV PUSH (14:00)
[2023-03-09] MEDS: LIDOCAINE HCL 2% GEL UROJET 10 ML PKG MUCOUS MEM (14:00)
[2023-03-09 17:23] LABS: Glucose Point of Care 204 mg/dl (65-105)
[2023-03-09] MEDS: PANTOPRAZOLE SODIUM IV 40 MG VIAL IV PUSH (21:49)
[2023-03-09 22:36] LABS: Glucose Point of Care 324 mg/dl (65-105)
[2023-03-10] VITALS (97 sets, daily range): BP systolic 84–116; BP diastolic 50–73; PULSE 73–129; RESP 0–53; TEMP 36.6–37.1; O2SAT 95–100
[2023-03-10] MEDS: INSULIN ASPART (*BKC) 100 UNITS/ML 6 UNITS SUB-Q (00:04)
[2023-03-10] MEDS: INSULIN GLARGINE (*BKC) 100 UNITS/ML 10 UNITS SUB-Q (00:04)
[2023-03-10] MEDS: metroNIDAZOLE 500 MG/ISO 100ML 500 MG/100 ML BAG 100 MG IVPB (05:44)
[2023-03-10] MEDS: CENTRAL LINE FLUSH 10 ML IV PUSH ×3 (05:45→20:33)
[2023-03-10 06:10] LABS: Basophils Percent Auto 0.2 % (0.2-1.2); Eosinophils Percent Auto 0.5 % (0-4.4); Hematocrit 27.5 % (42.0-52.0); Immature Granulocyte Absolute 0.05 K/mm3 (0.00-0.031); Immature Granulocyte Percent A 0.9 % (0-0.5); Lymphocytes Absolute Auto 1.17 K/mm3 (0.9-3.2); Lymphocytes Percent Auto 20.3 % (18.3-44.2); Mean Corpuscular HGB Conc 29.1 g/dl (32-36); Mean Corpuscular Hemoglobin 24.3 pg (26-34); Mean Corpuscular Volume 83.6 fl (80-100); Mean Platelet Volume 9.7 fl (7.4-10.4); Monocytes Absolute Auto 0.4 K/mm3 (0.1-0.6); Monocytes Percent Auto 6.4 % (2.6-8.5); Neutrophils Absolute Auto 4.1 K/mm3 (1.3-6.7); Neutrophils Percent Auto 71.7 % (45.5-73.1); Platelet Count Result 259 k/mm3 (150-375); Red Blood Count 3.29 M/mm3 (4.6-6.20); Red Cell Distribution Width 18.8 % (11.5-14.5); White Blood Count 5.8 K/mm3 (4.5-10.0)
[2023-03-10 06:20] LABS: Alanine Aminotransferase 12 U/L (6-50); Albumin Level 2.1 g/dL (3.5-5.1); Alkaline Phosphatase 102 U/L (38-126); Anion Gap 1 mmol/L (8-16); Aspartate Amino Transferase 17 U/L (17-59); Bilirubin,Total 0.5 mg/dL (0.2-1.3); Blood Urea Nitrogen 33 mg/dL (9-20); Calcium 7.2 mg/dL (8.4-10.2); Carbon Dioxide 23 mmol/L (22-30); Chloride 110 mmol/L (98-107); Estimated CRCL calculation 60 ml/min; Estimated Glomerular Filt Rate > 60; Glucose 219 mg/dL (65-110); Phosphorus 3.5 mg/dL (2.5-4.5); Potassium 3.8 mmol/L (3.4-5.0); Sodium 134 mmol/L (137-145)
[2023-03-10 06:30] LABS: Hypochromasia 1+ (NORMAL); Platelet Clumps Present; Platelet Estimate Adequate (Adequate)
[2023-03-10 06:31] LABS: Anisocytosis 1+ (NORMAL); Microcytosis 1+ (NORMAL); Schistocytes None Seen (NORMAL)
[2023-03-10] MEDS: hetaSTARCH 6%/NACL 500 ML 250 ML IV CONT (08:11)
[2023-03-10] MEDS: INSULIN ASPART (*BKC) 100 UNITS/ML SUB-Q ×3 (08:16→18:20)
[2023-03-10] MEDS: CALCIUM GLUC 2,000 MG/NS 100ML 2,000 MG/100 ML BAG 100 MG IVPB (08:17)
[2023-03-10] MEDS: TAMSULOSIN HCL 0.4 MG CAPSULE PO (08:25)
[2023-03-10] MEDS: PANTOPRAZOLE SODIUM IV 40 MG VIAL IV PUSH ×2 (08:25→20:33)
[2023-03-10] MEDS: PRAVASTATIN SODIUM 20 MG TABLET 40 MG PO (08:26)
[2023-03-10] MEDS: FINASTERIDE 5 MG TABLET PO (08:26)
[2023-03-10] MEDS: APIXABAN 5 MG TABLET PO ×2 (08:26→20:32)
[2023-03-10] MEDS: PREGABALIN (*CRX) 75 MG CAPSULE 150 MG PO (08:26)
[2023-03-10] MEDS: MONTELUKAST SODIUM 10 MG TABLET PO (08:26)
[2023-03-10] MEDS: CEFEPIME 1 GM/NS 50 ML 1 GM/50 ML BAG IVPB ×2 (08:27→20:32)
[2023-03-10] MEDS: ASPIRIN 81 MG CHEWABLE TABLET PO (08:27)
[2023-03-10] MEDS: COLLAGENASE OINT 30 GM TUBE 1 APPLIC TOPICAL (08:32)
[2023-03-10] MEDS: MUPIROCIN 2% OINT 22 GM TUBE 1 APPLIC TOPICAL (08:32)
[2023-03-10 08:35] LABS: Glucose Point of Care 204 mg/dl (65-105)
--- NOTE | 2023-03-10 09:35 | WPDUROPN2 ---
Progress Note: A&P Assessment and Plan (1) BPH (benign prostatic hyperplasia): Code(s): N40.0 - Benign prostatic hyperplasia without lower urinary tract symptoms Status: Acute Assessment and Plan: Continue Tamsulosin and Finasteride. Plan to keep mcgovern in for 7-10 days then perform voiding trial. (2) Retention of urine: Code(s): R33.9 - Retention of urine, unspecified Status: Acute (3) UTI (urinary tract infection): Qualifiers: Hematuria presence: with hematuria Urinary tract infection type: acute cystitis Qualified Code(s): N30.01 - Acute cystitis with hematuria Code(s): N39.0 - Urinary tract infection, site not specified Status: Acute Assessment and Plan: Urine culture negative. (4) Septic shock: Code(s): A41.9 - Sepsis, unspecified organism; R65.21 - Severe sepsis with septic shock Status: Acute Assessment and Plan: Blood cultures are preliminarily negative, continue IV antibiotics, tailor to culture results. Subjective Subjective Date/Time Seen: 03/10/23 09:35 Interval history: The patient is doing well s/p catheter insertion yesterday. Creatinine is stable at 1.10 and WBC is also stable at 5.8. Urine culture is negative, blood cultures are preliminarily negative. Urine is red in color but draining to gravity. Review of Systems Cardiovascular: Cardiovascular: Denies chest pain Respiratory: Respiratory: Reports no additional respiratory complaints Gastrointestinal: Gastrointestinal: Denies abdominal pain, Denies nausea and Denies vomiting Genitourinary: Genitourinary: Reports hematuria Exam Const: General: cooperative; No comfortable Resp: Effort & Inspection: normal respiratory effort Cardio: Rate: abnormal rate GI: GI Palp: Yes Soft to palpation and No Tenderness to palpation present (GI) : General: Yes no CVA tenderness Urinary Catheter: Urinary Catheter: patent and draining and urine red Extrem: Right lower extremity: no edema Left lower extremity: no edema Objective Data Vital Signs Vital Signs: Vital Signs - 24 hr 03/09/23 10:00 03/09/23 09:46 03/09/23 10:28 Temperature Pulse Rate 119 H 122 H 113 H Respiratory Rate 19 25 H Blood Pressure Pulse Oximetry 98 97 Oxygen Delivery 03/09/23 10:32 03/09/23 10:46 03/09/23 11:03 Temperature Pulse Rate 113 H 112 H 112 H Respiratory Rate 25 H 23 H 16 Blood Pressure 120/62 Pulse Oximetry 97 98 99 Oxygen Delivery 03/09/23 12:00 03/09/23 12:00 03/09/23 14:00 Temperature 98.7 F Pulse Rate 116 H 110 H 113 H Respiratory Rate 18 24 H 29 H Blood Pressure 130/86 120/56 L Pulse Oximetry 99 98 99 Oxygen Delivery Room Air 03/09/23 14:00 03/09/23 16:00 03/09/23 16:00 Temperature 98.3 F Pulse Rate 99 120 H 120 H Respiratory Rate 25 H 25 H Blood Pressure 129/62 Pulse Oximetry 98 98 Oxygen Delivery Room Air 03/09/23 11:19 03/09/23 11:30 03/09/23 11:31 Temperature Pulse Rate 110 H 110 H 110 H Respiratory Rate 25 H 23 H 24 H Blood Pressure 113/61 Pulse Oximetry 97 98 98 Oxygen Delivery 03/09/23 11:45 03/09/23 11:46 03/09/23 12:00 Temperature Pulse Rate 111 H 109 H 113 H Respiratory Rate 23 H 23 H 26 H Blood Pressure 110/60 118/64 Pulse Oximetry 98 98 98 Oxygen Delivery 03/09/23 12:01 03/09/23 12:15 03/09/23 12:16 Temperature Pulse Rate 113 H 124 H 123 H Respiratory Rate 26 H 18 16 Blood Pressure 130/86 Pulse Oximetry 98 96 100 Oxygen Delivery 03/09/23 12:30 03/09/23 12:31 03/09/23 12:45 Temperature Pulse Rate 116 H 115 H 113 H Respiratory Rate 20 25 H 0 L Blood Pressure 122/63 120/64 Pulse Oximetry 98 99 99 Oxygen Delivery 03/09/23 12:46 03/09/23 13:00 03/09/23 13:01 Temperature Pulse Rate 112 H 98 103 H Respiratory Rate 21 H 22 H Blood Pressure 119/67 Pulse Oximetry 99 99 100 Oxygen Delivery 03/09/23 16:00 03/09/23 18:00 07
--- NOTE | 2023-03-10 09:48 | WPDINTPN ---
Progress Note: A&P Assessment and Plan (1) Septic shock: Code(s): A41.9 - Sepsis, unspecified organism; R65.21 - Severe sepsis with septic shock Status: Acute Assessment and Plan: Patient presented with generalized weakness, altered mental status, hypotension, acute kidney injury, atrial fibrillation RVR -patient received 3 L IV fluids in the ER despite his his blood pressures remain low -likely source is likely a pyelonephritis/cystitis -central line was inserted and patient was started vasopressors -continue Levophed to maintain MAP > 65 mmHg at all times propofol adequate end organ perfusion -patient with acute kidney injury, which has resolved -03/08: blood cultures -preliminary blood cultures are negative -03/08: urine cultures so far -patient currently on cefepime and vancomycin and Flagyl, -continue maintenance IV fluids as blood pressures are borderline (2) Acute pyelitis: Code(s): N10 - Acute pyelonephritis Status: Acute Assessment and Plan: Treatment as above 03/08/[address] scan 1. Distended bladder with bladder wall thickening, consistent with cystitis. 2. Moderate bilateral hydronephrosis and hydroureter with urothelial enhancement, consistent with pyelitis. 3. Sacral decubitus ulcer. No evidence of osteomyelitis. 4. Stable mild splenomegaly. (3) Hydronephrosis: Code(s): N13.30 - Unspecified hydronephrosis Status: Acute Assessment and Plan: Appreciate urology evaluation recommendation, continue tamsulosin and finasteride -urinary catheter was placed per Urology for urinary retention -urology recommended to keep the Whyte for 7-10 days did perform voiding trial (4) Acute renal insufficiency: Code(s): N28.9 - Disorder of kidney and ureter, unspecified Status: Acute Assessment and Plan: Patient with acute kidney injury with creatinine of 1.4 on admission -adequate fluid resuscitation -adequate urine output -creatinine has normalized -will continue to monitor renal function, electrolytes and urine output -continue maintenance IV fluids (5) Anemia: Qualifiers: Anemia type: unspecified type Qualified Code(s): D64.9 - Anemia, unspecified Code(s): D64.9 - Anemia, unspecified Status: Acute Assessment and Plan: Folic acid and vitamin B12 within normal limit -iron panel was ordered on 03/09/2023 and was canceled for some -will reorder iron panel -stool for Hemoccult has been ordered and pending (6) Atrial fibrillation with RVR: Code(s): I48.91 - Unspecified atrial fibrillation Status: Acute Assessment and Plan: Patient with AFib RVR status post cardioversion x2 on admission on 03/08/2022 -currently in rapid ventricular rhythm -patient remains in AFib, amiodarone was never started -Appreciate cardiology evaluation, recommended amiodarone and home beta-alec when able -03/09megan start amiodarone p.o. (7) Diabetes mellitus type 2, uncontrolled: Status: Acute Assessment and Plan: Accu-Cheks and sliding scale insulin -increase the Lantus (8) Hypertension: Code(s): I10 - Essential (primary) hypertension Status: Acute Assessment and Plan: Hold antihypertensives borderline blood pressures (9) Decubitus ulcer: Code(s): L89.90 - Pressure ulcer of unspecified site, unspecified stage Status: Acute Assessment and Plan: Wound care following the patient Plan DVT prophylaxis: Eliquis Stress ulcer prophylaxis: Protonix IV q.12 hours Nutrition: Diabetic diet Code Status: Full code Critical Care Time Spent: 32 minutes Due to a high probability of clinically significant, life threatening deterioration, the patient required my highest level of preparedness to intervene emergently and I personally spent this critical care time directly and personally managing the patient. This critical care time included obtaining a history; examining the
--- NOTE | 2023-03-10 11:08 | PM.PNCARD ---
Progress Note: A&P Assessment and Plan (1) Atrial fibrillation with rapid ventricular response: Code(s): I48.91 - Unspecified atrial fibrillation Status: Acute Assessment and Plan: Patient had AFib RVR in the emergency room, with hypotension and was emergently cardioverted to sinus tachycardia.? He has maintained sinus rhythm.? Unclear to me if his AFib has been persistent recently or paroxysmal, but in any case he is now in sinus rhythm. --Discussed life-threatening situation requiring emergent cardioversion, hospital course etc.. --Continue Eliquis --IV Amiodarone has been switched to PO Amiodarone 200mg QD. Continue with PO Amiodarone. Would discharge patient on PO Amiodarone. --Resume home beta-alec when blood pressures improve. --Follow-up with usual recruiter manager, Dr. Horn, after discharge (2) Septic shock: Code(s): A41.9 - Sepsis, unspecified organism; R65.21 - Severe sepsis with septic shock Status: Acute Assessment and Plan: Patient admitted with septic shock from pyelitis with bilateral hydronephrosis.? On Levophed on admission. Mentating well, blood pressure stable today. No longer requiring pressors. --Treatment per sales representative public utilities (3) CAD (coronary artery disease): Code(s): I25.10 - Atherosclerotic heart disease of [place] coronary artery without angina pectoris Status: Acute Assessment and Plan: History of CAD an RCA stent in 2016, stable with no chest pain or CHF. --Resume pravastatin and +/- ASA upon recovery Plan Recommendations/plan discussed with Manager Adobe Dr. Colmenares. Cardiology will sign off at this time. Please call us back if needed. Subjective Date/time seen: 03/10/23 11:08 Interval history: Reason for visit: Atrial fibrillation with RVR HPI: John Warren is a 73 year-old male whom we were asked to see at the request of ALEXANDRA Ralph, for advice and opinion regarding his AFib RVR in consultation.? His usual recruiter manager is Dr. Horn at [facility].? He has a history of paroxysmal atrial fibrillation, CAD status post PCI to RCA in 2016, hypertension and hyperlipidemia. Mr. Davila was hospitalized [facility] from July to August 2022 with sepsis, diabetic foot ulcer, DVT of left upper extremity, and AFib RVR.? He was discharged on amiodarone 200 mg q.d. and metoprolol XL 50 mg q.d. as well as Eliquis. Mr. Davila was hospitalized at [facility] from 01/10/2023 to 01/15 with sepsis and septic shock, atrial fibrillation, sacral decubitus, uncontrolled diabetes, hypotension.? He blames [facility] for his decubitus ulcer.? He was discharged to snf on metoprolol 12.5 mg b.i.d. and Eliquis.? Echo during the hospital stay showed EF 60%, diastolic dysfunction, mild tricuspid regurgitation. The patient arrived to the emergency room yesterday with slurred speech, blood pressure in the 70s, AFib RVR with heart rates in the 180s to 190s.? He underwent emergent cardiac cardioversion successfully but remained hypotensive.? He has received 3 L of fluid.? He was transferred to the ICU with diagnosis of urosepsis, pyelitis, bilateral hydronephrosis..? He has been started on Levophed and amiodarone intravenously.? Currently he is denying any shortness of breath or chest pain, and is very unhappy that he had to be shocked in the emergency room as he feels it was unnecessary. Troponins negative x3.? ProBNP 2100. 03/08/2023 EKG at 5:21 p.m.: AFib RVR rate 176, low voltage, nonspecific ST changes. 03/08/2023 at 5:44 p.m.:? Sinus tachycardia rate 106, low voltage Both EKGs personally reviewed.? Telemetry:? Sinus tachycardia, first-degree AV block 03/08/2023 chest x-ray:? No acute cardiopulmonary disease.? Personally reviewed, agree CT and other labs reviewed. Date of service 03/10/2023: Remains in sinus rhythm. Patient reports he is feeling well this morning, denies any complaints/symptoms. Review of Systems Review of S
--- NOTE | 2023-03-10 11:39 | PCFNICU ---
ICU Rounding Note: Pt current nutrition is DBCC with Reinier BID. Last recorded weight is 77.9 kg. Bowel Motility: +Bm reported 03/07 Labs Reviewed:Glu 219, BUN 33, Na 134, Hct 27.5,Hgb 8.0 Meds Noted:Eliquis, Protonix, Lyrica Skin: unstageable PU-sacral Additional Notes: Patient current with DBCC diet. Oral Intake has been good 75-100% of meals. Protein Modular of Reinier BID added for wound healing. Agree with diet orders. Following daily in ICU rounds. Will monitor weight, labs, skin, oral intake every 7 days.
--- NOTE | 2023-03-10 11:57 | P.PNIM_ITS ---
Progress Note: A&P Assessment and Plan (1) Septic shock: Code(s): A41.9 - Sepsis, unspecified organism; R65.21 - Severe sepsis with septic shock Status: Acute Assessment and Plan: Patient presented with generalized weakness, altered mental status, hypotension, acute kidney injury, atrial fibrillation RVR -patient received 3 L IV fluids in the ER despite his his blood pressures remain low -likely source is likely a pyelonephritis/cystitis -central line was inserted and patient was started vasopressors -continue Levophed to maintain MAP > 65 mmHg at all times propofol adequate end organ perfusion -patient with acute kidney injury, which has resolved -03/08: blood cultures -preliminary blood cultures are negative -03/08: urine cultures so far -patient currently on cefepime and vancomycin and Flagyl, -continue maintenance IV fluids as blood pressures are borderline (2) Acute pyelitis: Code(s): N10 - Acute pyelonephritis Status: Acute Assessment and Plan: Treatment as above 03/08/[address] scan 1. Distended bladder with bladder wall thickening, consistent with cystitis. 2. Moderate bilateral hydronephrosis and hydroureter with urothelial enhancement, consistent with pyelitis. 3. Sacral decubitus ulcer. No evidence of osteomyelitis. 4. Stable mild splenomegaly. (3) Hydronephrosis: Code(s): N13.30 - Unspecified hydronephrosis Status: Acute Assessment and Plan: Appreciate urology evaluation recommendation, continue tamsulosin and finasteride -urinary catheter was placed per Urology for urinary retention -urology recommended to keep the Whyte for 7-10 days did perform voiding trial (4) Acute renal insufficiency: Code(s): N28.9 - Disorder of kidney and ureter, unspecified Status: Acute Assessment and Plan: Patient with acute kidney injury with creatinine of 1.4 on admission -adequate fluid resuscitation -adequate urine output -creatinine has normalized -will continue to monitor renal function, electrolytes and urine output -continue maintenance IV fluids (5) Anemia: Qualifiers: Anemia type: unspecified type Qualified Code(s): D64.9 - Anemia, unspecified Code(s): D64.9 - Anemia, unspecified Status: Acute Assessment and Plan: Folic acid and vitamin B12 within normal limit -iron panel was ordered on 03/09/2023 and was canceled for some -will reorder iron panel -stool for Hemoccult has been ordered and pending (6) Atrial fibrillation with RVR: Code(s): I48.91 - Unspecified atrial fibrillation Status: Acute Assessment and Plan: Patient with AFib RVR status post cardioversion x2 on admission on 03/08/2022 -currently in rapid ventricular rhythm -patient remains in AFib, amiodarone was never started -Appreciate cardiology evaluation, recommended amiodarone and home beta-alec when able -03/09megan start amiodarone p.o. (7) Diabetes mellitus type 2, uncontrolled: Status: Acute Assessment and Plan: Accu-Cheks and sliding scale insulin -increase the Lantus (8) Hypertension: Code(s): I10 - Essential (primary) hypertension Status: Acute Assessment and Plan: Hold antihypertensives borderline blood pressures (9) Decubitus ulcer: Code(s): L89.90 - Pressure ulcer of unspecified site, unspecified stage Status: Acute Assessment and Plan: Wound care following the patient Plan DVT prophylaxis: Eliquis Stress ulcer prophylaxis: Protonix IV q.12 hours Nutrition: Diabetic diet
[2023-03-10] MEDS: AMIODARONE HCL 200 MG TABLET PO (11:58)
[2023-03-10] MEDS: ERGOCALCIFEROL 50,000 UNITS CAPSULE 50000 UNITS PO (11:58)
[2023-03-10 12:03] LABS: Glucose Point of Care 232 mg/dl (65-105)
[2023-03-10 14:07] LABS: Iron 22 ug/dL (49-181)
[2023-03-10 14:16] LABS: Percent Iron Saturation 15 % (20-50)
--- NOTE | 2023-03-10 17:05 | PCPTNOTE ---
On 03/10/23, the student, LEEROY Montoya, provided care and completed [facility] documentation on this patient. I have reviewed the student's documentation and agree with the findings.
[2023-03-10 20:26] LABS: Glucose Point of Care 206 mg/dl (65-105)
[2023-03-10] MEDS: INSULIN GLARGINE (*BKC) 100 UNITS/ML 14 UNITS SUB-Q (20:33)
[2023-03-10 20:48] LABS: Glucose Point of Care 346 mg/dl (65-105)
[2023-03-11] VITALS (23 sets, daily range): BP systolic 90–109; BP diastolic 48–68; PULSE 90–115; RESP 12–28; TEMP 36.7–37.3; O2SAT 93–100
[2023-03-11] MEDS: CENTRAL LINE FLUSH 10 ML IV PUSH ×3 (05:11→20:23)
[2023-03-11 05:45] LABS: Basophils Percent Auto 0.2 % (0.2-1.2); Eosinophils Percent Auto 0.5 % (0-4.4); Hematocrit 27.2 % (42.0-52.0); Hemoglobin 7.8 g/dL (14.0-18.0); Immature Granulocyte Absolute 0.04 K/mm3 (0.00-0.031); Immature Granulocyte Percent A 0.9 % (0-0.5); Lymphocytes Absolute Auto 0.77 K/mm3 (0.9-3.2); Lymphocytes Percent Auto 17.3 % (18.3-44.2); Mean Corpuscular HGB Conc 28.7 g/dl (32-36); Mean Corpuscular Hemoglobin 23.9 pg (26-34); Mean Corpuscular Volume 83.2 fl (80-100); Mean Platelet Volume 9.1 fl (7.4-10.4); Monocytes Absolute Auto 0.3 K/mm3 (0.1-0.6); Monocytes Percent Auto 6.5 % (2.6-8.5); Neutrophils Absolute Auto 3.3 K/mm3 (1.3-6.7); Neutrophils Percent Auto 74.6 % (45.5-73.1); Platelet Count Result 208 k/mm3 (150-375); Red Blood Count 3.27 M/mm3 (4.6-6.20); Red Cell Distribution Width 18.4 % (11.5-14.5); White Blood Count 4.4 K/mm3 (4.5-10.0)
[2023-03-11 06:00] LABS: Hemoglobin A1C 7.3 % (<5.7)
[2023-03-11 06:09] LABS: Anion Gap 0 mmol/L (8-16); Blood Urea Nitrogen 28 mg/dL (9-20); Calcium 7.5 mg/dL (8.4-10.2); Carbon Dioxide 26 mmol/L (22-30); Chloride 112 mmol/L (98-107); Estimated CRCL calculation 80 ml/min; Estimated Glomerular Filt Rate > 60; Glucose 285 mg/dL (65-110); Magnesium 1.6 mg/dL (1.6-2.3); Phosphorus 2.6 mg/dL (2.5-4.5); Potassium 3.9 mmol/L (3.4-5.0); Sodium 138 mmol/L (137-145)
[2023-03-11 06:41] LABS: Anisocytosis 1+ (NORMAL); Microcytosis 1+ (NORMAL); Platelet Clumps Present; Platelet Estimate Adequate (Adequate); Schistocytes None Seen (NORMAL)
[2023-03-11] MEDS: INSULIN ASPART (*BKC) 100 UNITS/ML SUB-Q ×2 (07:56→11:41)
[2023-03-11] MEDS: APIXABAN 5 MG TABLET PO ×2 (08:00→20:22)
[2023-03-11] MEDS: PREGABALIN (*CRX) 75 MG CAPSULE 150 MG PO (08:00)
[2023-03-11] MEDS: PANTOPRAZOLE SODIUM IV 40 MG VIAL IV PUSH ×2 (08:00→20:22)
[2023-03-11] MEDS: MONTELUKAST SODIUM 10 MG TABLET PO (08:00)
[2023-03-11] MEDS: AMIODARONE HCL 200 MG TABLET PO (08:00)
[2023-03-11] MEDS: MUPIROCIN 2% OINT 22 GM TUBE 1 APPLIC TOPICAL (08:01)
[2023-03-11] MEDS: TAMSULOSIN HCL 0.4 MG CAPSULE PO (08:01)
[2023-03-11] MEDS: FINASTERIDE 5 MG TABLET PO (08:01)
[2023-03-11] MEDS: ASPIRIN 81 MG CHEWABLE TABLET PO (08:01)
[2023-03-11] MEDS: PRAVASTATIN SODIUM 20 MG TABLET 40 MG PO (08:01)
[2023-03-11] MEDS: CEFEPIME 1 GM/NS 50 ML 1 GM/50 ML BAG IVPB (08:02)
[2023-03-11] MEDS: COLLAGENASE OINT 30 GM TUBE 1 APPLIC TOPICAL (08:02)
[2023-03-11 08:07] LABS: Glucose Point of Care 309 mg/dl (65-105)
--- NOTE | 2023-03-11 09:29 | WPDINTPN ---
Progress Note: A&P Assessment and Plan (1) Septic shock: Code(s): A41.9 - Sepsis, unspecified organism; R65.21 - Severe sepsis with septic shock Status: Acute Assessment and Plan: Patient presented with generalized weakness, altered mental status, hypotension, acute kidney injury, atrial fibrillation RVR -patient received 3 L IV fluids in the ER despite his his blood pressures remain low -likely source is likely a pyelonephritis/cystitis -central line was inserted and patient was started vasopressors -continue Levophed to maintain MAP > 65 mmHg at all times propofol adequate end organ perfusion -patient with acute kidney injury, which has resolved -03/08: blood cultures -preliminary blood cultures are negative -03/08: urine cultures so far -03/10: Discontinued vancomycin and Flagyl, -currently on cefepime (03/08) -continue maintenance IV fluids as blood pressures are borderline (2) Acute pyelitis: Code(s): N10 - Acute pyelonephritis Status: Acute Assessment and Plan: Treatment as above 03/08/[address] scan 1. Distended bladder with bladder wall thickening, consistent with cystitis. 2. Moderate bilateral hydronephrosis and hydroureter with urothelial enhancement, consistent with pyelitis. 3. Sacral decubitus ulcer. No evidence of osteomyelitis. 4. Stable mild splenomegaly. (3) Hydronephrosis: Code(s): N13.30 - Unspecified hydronephrosis Status: Acute Assessment and Plan: Appreciate urology evaluation recommendation, continue tamsulosin and finasteride -urinary catheter was placed per Urology for urinary retention -urology recommended to keep the Whyte for 7-10 days did perform voiding trial (4) Acute renal insufficiency: Code(s): N28.9 - Disorder of kidney and ureter, unspecified Status: Acute Assessment and Plan: Patient with acute kidney injury with creatinine of 1.4 on admission -adequate fluid resuscitation -adequate urine output -creatinine has normalized -will continue to monitor renal function, electrolytes and urine output -no IV fluids as patient is drinking adequate amount of fluids (5) Anemia: Qualifiers: Anemia type: unspecified type Qualified Code(s): D64.9 - Anemia, unspecified Code(s): D64.9 - Anemia, unspecified Status: Acute Assessment and Plan: Folic acid and vitamin B12 within normal limit -iron panel was ordered on 03/09/2023 and was canceled for some -iron panel showed decreased iron levels, TIBC and% saturation. MCV is normal, likely anemia of chronic disease -stool for Hemoccult has been ordered and pending (6) Atrial fibrillation with RVR: Code(s): I48.91 - Unspecified atrial fibrillation Status: Acute Assessment and Plan: Patient with AFib RVR status post cardioversion x2 on admission on 03/08/2022 -currently in rapid ventricular rhythm -patient remains in AFib, amiodarone was never started -Appreciate cardiology evaluation, recommended amiodarone and home beta-alec when able -03/09 started p.o. amiodarone (7) Diabetes mellitus type 2, uncontrolled: Status: Acute Assessment and Plan: Accu-Cheks and sliding scale insulin -started patient on Jardiance and Janumet XR -discontinued Lantus (8) Hypertension: Code(s): I10 - Essential (primary) hypertension Status: Acute Assessment and Plan: Hold antihypertensives borderline blood pressures (9) Decubitus ulcer: Code(s): L89.90 - Pressure ulcer of unspecified site, unspecified stage Status: Acute Assessment and Plan: Wound care following the patient Plan DVT prophylaxis: Eliquis Stress ulcer prophylaxis: Protonix IV q.12 hours Nutrition: Diabetic diet Code Status: Full code Critical Care Time Spent: 31 minutes Patient may transfer out of the ICU if okay with hospitalist Due to a high probability of clinically significant, life threatening deteriora
[2023-03-11 11:40] LABS: Glucose Point of Care 222 mg/dl (65-105)
[2023-03-11] MEDS: metFORMIN HCL XR 500 MG TAB.SR.24H 2000 MG PO (11:41)
--- NOTE | 2023-03-11 11:41 | PCNFU ---
Nutrition Follow-Up Complete: Increased protein needs as related to wounds as evidenced by unstageable pressure ulcer reported. Goal: Adequate Intake of at least 75% of meals/supplements Patient is meeting current goal. no new goal. Pt current nutrition is DBCC with Reinier BID. Last recorded weight is 76.4 kg. Bowel Motility:+Bm reported 03/10 Labs Reviewed:Glu 285, ,BUN 28, Hct 27.2,Hgb 7.8 Meds Noted:Protonix, Eliquis, Lyrica. Skin:unstageable pressure ulcer-sacral Additional Notes: Patient remains on DBCC diet. Oral Intake 100% of meals. Patient is also consuming 100% of protein modular Reinier BID. Agree with diet orders. Will monitor weight, labs, skin, oral intake every 7 days.
[2023-03-11] MEDS: EMPAGLIFLOZIN 25 MG TABLET PO (11:42)
--- NOTE | 2023-03-11 12:50 | P.PNIM_ITS ---
Progress Note: A&P Assessment and Plan (1) Septic shock: Code(s): A41.9 - Sepsis, unspecified organism; R65.21 - Severe sepsis with septic shock Status: Acute Assessment and Plan: Patient presented with generalized weakness, altered mental status, hypotension, acute kidney injury, atrial fibrillation RVR -patient received 3 L IV fluids in the ER despite his his blood pressures remain low -likely source is likely a pyelonephritis/cystitis -central line was inserted and patient was started vasopressors -continue Levophed to maintain MAP > 65 mmHg at all times propofol adequate end organ perfusion -patient with acute kidney injury, which has resolved -03/08: blood cultures -preliminary blood cultures are negative -03/08: urine cultures so far -03/10: Discontinued vancomycin and Flagyl, -currently on cefepime (03/08) -continue maintenance IV fluids as blood pressures are borderline (2) Acute pyelitis: Code(s): N10 - Acute pyelonephritis Status: Acute Assessment and Plan: Treatment as above 03/08/[address] scan 1. Distended bladder with bladder wall thickening, consistent with cystitis. 2. Moderate bilateral hydronephrosis and hydroureter with urothelial enhancement, consistent with pyelitis. 3. Sacral decubitus ulcer. No evidence of osteomyelitis. 4. Stable mild splenomegaly. (3) Hydronephrosis: Code(s): N13.30 - Unspecified hydronephrosis Status: Acute Assessment and Plan: Appreciate urology evaluation recommendation, continue tamsulosin and finasteride -urinary catheter was placed per Urology for urinary retention -urology recommended to keep the Whyte for 7-10 days did perform voiding trial (4) Acute renal insufficiency: Code(s): N28.9 - Disorder of kidney and ureter, unspecified Status: Acute Assessment and Plan: Patient with acute kidney injury with creatinine of 1.4 on admission -adequate fluid resuscitation -adequate urine output -creatinine has normalized -will continue to monitor renal function, electrolytes and urine output -no IV fluids as patient is drinking adequate amount of fluids (5) Anemia: Qualifiers: Anemia type: unspecified type Qualified Code(s): D64.9 - Anemia, unspecified Code(s): D64.9 - Anemia, unspecified Status: Acute Assessment and Plan: Folic acid and vitamin B12 within normal limit -iron panel was ordered on 03/09/2023 and was canceled for some -iron panel showed decreased iron levels, TIBC and% saturation. MCV is normal, likely anemia of chronic disease -stool for Hemoccult has been ordered and pending (6) Atrial fibrillation with RVR: Code(s): I48.91 - Unspecified atrial fibrillation Status: Acute Assessment and Plan: Patient with AFib RVR status post cardioversion x2 on admission on 03/08/2022 -currently in rapid ventricular rhythm -patient remains in AFib, amiodarone was never started -Appreciate cardiology evaluation, recommended amiodarone and home beta-alec when able -03/09 started p.o. amiodarone (7) Diabetes mellitus type 2, uncontrolled: Status: Acute Assessment and Plan: Accu-Cheks and sliding scale insulin -started patient on Jardiance and Janumet XR -discontinued Lantus (8) Hypertension: Code(s): I10 - Essential (primary) hypertension Status: Acute Assessment and Plan: Hold antihypertensives borderline blood pressures (9) Decubitus ulcer: Code(s): L89.90 - Pressure ulcer of unspecified site, unspecified stage Status: Acute As
[2023-03-11] MEDS: cefTRIAXone 2 GM/NS 100 ML 2 GM/100 ML BAG IVPB (14:17)
[2023-03-11 17:09] LABS: Glucose Point of Care 112 mg/dl (65-105)
[2023-03-11 20:43] LABS: Glucose Point of Care 188 mg/dl (65-105)
[2023-03-12] VITALS (13 sets, daily range): BP systolic 83–117; BP diastolic 39–89; PULSE 100–168; RESP 16–20; TEMP 36.6–37.3; O2SAT 97–98
[2023-03-12 05:30] LABS: Hematocrit 27.7 % (42.0-52.0); Hemoglobin 8.1 g/dL (14.0-18.0); Mean Corpuscular HGB Conc 29.2 g/dl (32-36); Mean Corpuscular Hemoglobin 24.3 pg (26-34); Mean Corpuscular Volume 83.2 fl (80-100); Mean Platelet Volume 10.1 fl (7.4-10.4); Platelet Count Result 233 k/mm3 (150-375); Red Blood Count 3.33 M/mm3 (4.6-6.20); Red Cell Distribution Width 18.2 % (11.5-14.5); White Blood Count 5.7 K/mm3 (4.5-10.0)
[2023-03-12 05:31] LABS: Anion Gap 3 mmol/L (8-16); Blood Urea Nitrogen 31 mg/dL (9-20); Calcium 7.5 mg/dL (8.4-10.2); Carbon Dioxide 29 mmol/L (22-30); Chloride 106 mmol/L (98-107); Estimated CRCL calculation 73 ml/min; Estimated Glomerular Filt Rate > 60; Glucose 169 mg/dL (65-110); Magnesium 1.5 mg/dL (1.6-2.3); Phosphorus 2.5 mg/dL (2.5-4.5); Potassium 4.5 mmol/L (3.4-5.0); Sodium 138 mmol/L (137-145)
[2023-03-12] MEDS: CENTRAL LINE FLUSH 10 ML IV PUSH (06:27)
[2023-03-12 08:23] LABS: Glucose Point of Care 178 mg/dl (65-105)
[2023-03-12] MEDS: APIXABAN 5 MG TABLET PO ×2 (08:54→20:29)
[2023-03-12] MEDS: ASPIRIN 81 MG CHEWABLE TABLET PO (08:54)
[2023-03-12] MEDS: metFORMIN HCL XR 500 MG TAB.SR.24H 2000 MG PO (08:54)
[2023-03-12] MEDS: EMPAGLIFLOZIN 25 MG TABLET PO (08:54)
[2023-03-12] MEDS: MONTELUKAST SODIUM 10 MG TABLET PO (08:55)
[2023-03-12] MEDS: PRAVASTATIN SODIUM 20 MG TABLET 40 MG PO (08:55)
[2023-03-12] MEDS: PANTOPRAZOLE SODIUM IV 40 MG VIAL IV PUSH ×2 (08:55→20:29)
[2023-03-12] MEDS: FINASTERIDE 5 MG TABLET PO (08:55)
[2023-03-12] MEDS: PREGABALIN (*CRX) 75 MG CAPSULE 150 MG PO (08:56)
[2023-03-12] MEDS: TAMSULOSIN HCL 0.4 MG CAPSULE PO (08:56)
[2023-03-12] MEDS: cefTRIAXone 2 GM/NS 100 ML 2 GM/100 ML BAG IVPB (08:58)
--- NOTE | 2023-03-12 10:54 | PM.IMPN ---
Progress Note: A&P Assessment and Plan (1) Septic shock: Code(s): A41.9 - Sepsis, unspecified organism; R65.21 - Severe sepsis with septic shock Status: Acute Assessment and Plan: off pressors Vital stable (2) Acute pyelitis: Code(s): N10 - Acute pyelonephritis Status: Acute Assessment and Plan: Treatment as above 03/08/[address] scan 1. Distended bladder with bladder wall thickening, consistent with cystitis. 2. Moderate bilateral hydronephrosis and hydroureter with urothelial enhancement, consistent with pyelitis. 3. Sacral decubitus ulcer. No evidence of osteomyelitis. 4. Stable mild splenomegaly. (3) Hydronephrosis: Code(s): N13.30 - Unspecified hydronephrosis Status: Acute Assessment and Plan: Appreciate urology evaluation recommendation, continue tamsulosin and finasteride -urinary catheter was placed per Urology for urinary retention -urology recommended to keep the Whyte for 7-10 days did perform voiding trial (4) Acute renal insufficiency: Code(s): N28.9 - Disorder of kidney and ureter, unspecified Status: Acute Assessment and Plan: Patient with acute kidney injury with creatinine of 1.4 on admission -adequate fluid resuscitation -adequate urine output -creatinine has normalized -will continue to monitor renal function, electrolytes and urine output -no IV fluids as patient is drinking adequate amount of fluids (5) Anemia: Qualifiers: Anemia type: unspecified type Qualified Code(s): D64.9 - Anemia, unspecified Code(s): D64.9 - Anemia, unspecified Status: Acute Assessment and Plan: Folic acid and vitamin B12 within normal limit -iron panel was ordered on 03/09/2023 and was canceled for some -iron panel showed decreased iron levels, TIBC and% saturation. MCV is normal, likely anemia of chronic disease -stool for Hemoccult has been ordered and pending (6) Atrial fibrillation with RVR: Code(s): I48.91 - Unspecified atrial fibrillation Status: Acute Assessment and Plan: Patient with AFib RVR status post cardioversion x2 on admission on 03/08/2022 -currently in rapid ventricular rhythm -patient remains in AFib, amiodarone was never started -Appreciate cardiology evaluation, recommended amiodarone and home beta-alec when able -03/09 started p.o. amiodarone (7) Diabetes mellitus type 2, uncontrolled: Status: Acute Assessment and Plan: Accu-Cheks and sliding scale insulin -started patient on Jardiance and Janumet XR -discontinued Lantus (8) Hypertension: Code(s): I10 - Essential (primary) hypertension Status: Acute Assessment and Plan: Hold antihypertensives borderline blood pressures (9) Decubitus ulcer: Code(s): L89.90 - Pressure ulcer of unspecified site, unspecified stage Status: Acute Assessment and Plan: Wound care following the patient Plan to note patient does have sacral decubitus ulcer. he needs help and assistance with managing this. Patient also his severely debilitated and unable to help significantly to help maintain his wounds and also he is not mobile. Patient would benefit from hospital bed home. He requires frequent dressing changes and also frequent changes in position Which is hard for him to accomplished by himself. Hospital bed would be appropriate Subjective Date/time seen: 03/12/23 10:54 Interval history: No new complaints Exam Narrative: General: Pleasant patient in no acute distress HEENT:? Pupils equal reactive, sclera is clear, moist oral mucosa Neck:? Some Respiratory:? Clear to auscultation bilaterally, adequate air entry, no wheezing Cardiac:? Sinus tachycardia, S1-S2 is normal Abdomen:? Soft, nontender nondistended, normoactive bowel sounds Extremities:? No edema, multiple due to his Neuro:? Patient is awake, alert, oriented x3, nonfocal Skin:? Chronic venous stasis flores
[2023-03-12 12:06] LABS: Glucose Point of Care 224 mg/dl (65-105)
[2023-03-12] MEDS: INSULIN ASPART (*BKC) 100 UNITS/ML SUB-Q (12:15)
[2023-03-12] MEDS: MUPIROCIN 2% OINT 22 GM TUBE 1 APPLIC TOPICAL (13:19)
[2023-03-12] MEDS: COLLAGENASE OINT 30 GM TUBE 1 APPLIC TOPICAL (13:19)
[2023-03-12 17:20] LABS: Glucose Point of Care 188 mg/dl (65-105)
--- NOTE | 2023-03-12 19:53 | ECG_ITS ---
Measurements Intervals [place] Rate: 151 P: 216 CO: 110 QRS: 37 QRSD: 104 T: 71 QT: 302 QTc: 479 Interpretive Statements ATRIAL FLUTTER/TACHYCARDIA WITH RAPID VENTRICULAR RESPONSE BASELINE ARTIFACT- I, III, AVL ABNORMAL ECG COMPARED TO ECG 03/08/2023 17:44:43 ATRIAL FLUTTER/TACHYCARDIA NOW PRESENT Electronically Signed On 03-13-2023 8:03:36 CDT by Larry Juan D.O.
[2023-03-12] MEDS: AMIODARONE HCL 200 MG TABLET PO (20:29)
[2023-03-12 22:40] LABS: Glucose Point of Care 233 mg/dl (65-105)
[2023-03-12] MEDS: AMIODARONE 150 MG/D5W 100 ML 150 MG/100 ML BAG 600 MG IV CONT (22:44)
[2023-03-12] MEDS: AMIODARONE 360 MG/D5W 200 ML 360 MG/200 ML BAG 33.33 MG IV CONT (23:05)
--- NOTE | 2023-03-12 23:09 | PC.NURSE ---
Approx. around 2250, attempted to call daughter and inform her about pt being transferred to IMU Room 205-1. There was no answer and voicemail not set up.
--- NOTE | 2023-03-12 23:11 | PM.EVENT ---
Event Note Event Note Event Note: S: Call from patient's nurse with concerns that his heart rate is increasing. He apparently refused p.o. amiodarone this morning and he tells me that he was not informed that his medications were changing and that is why he did not take it. Blood pressures have been soft though he is asymptomatic with that. O: Chronically ill-appearing gentleman supine in bed in no distress. Generalized pallor. Mild periankle edema, right greater than left. Heart rate is in the 140s to 150s and is irregularly irregular. Lungs are clear to auscultation he is in no respiratory distress. Abdomen is soft and nontender with positive bowel sounds. A: Atrial fibrillation with rapid ventricular response, soft blood pressures. P: Transfer to IMU for amiodarone bolus and drip. A total of 40 minutes critical care time was spent attention of this patient.
--- NOTE | 2023-03-12 23:38 | PC.NURSE ---
This patient, John Warren, was received from room 244-01 on 03/12/23 at 2245. Report received from KRIS Barron. Patient/family oriented to unit policies and routines
[2023-03-13] VITALS (18 sets, daily range): BP systolic 82–129; BP diastolic 44–86; PULSE 54–162; RESP 16–20; TEMP 36–36.9; O2SAT 96–100
[2023-03-13] MEDS: MAGNESIUM SULF 2 GM/WATER 50ML 2 GM/50 ML BAG IVPB (01:26)
[2023-03-13 04:40] LABS: Hematocrit 30.8 % (42.0-52.0); Hemoglobin 8.9 g/dL (14.0-18.0); Mean Corpuscular HGB Conc 28.9 g/dl (32-36); Mean Corpuscular Hemoglobin 24.1 pg (26-34); Mean Corpuscular Volume 83.5 fl (80-100); Mean Platelet Volume 10.3 fl (7.4-10.4); Platelet Count Result 255 k/mm3 (150-375); Red Blood Count 3.69 M/mm3 (4.6-6.20); Red Cell Distribution Width 18.2 % (11.5-14.5); White Blood Count 8.3 K/mm3 (4.5-10.0)
[2023-03-13 04:57] LABS: Anion Gap 7 mmol/L (8-16); Blood Urea Nitrogen 33 mg/dL (9-20); Calcium 7.3 mg/dL (8.4-10.2); Carbon Dioxide 25 mmol/L (22-30); Chloride 104 mmol/L (98-107); Estimated CRCL calculation 73 ml/min; Estimated Glomerular Filt Rate > 60; Glucose 281 mg/dL (65-110); Phosphorus 2.7 mg/dL (2.5-4.5); Potassium 4.5 mmol/L (3.4-5.0); Sodium 136 mmol/L (137-145)
[2023-03-13] MEDS: AMIODARONE 360 MG/D5W 200 ML 360 MG/200 ML BAG 16.67 MG IV CONT ×2 (05:18→16:49)
--- NOTE | 2023-03-13 08:06 | PM.PNCARD ---
Progress Note: A&P Assessment and Plan (1) Atrial fibrillation with rapid ventricular response: Code(s): I48.91 - Unspecified atrial fibrillation Status: Acute Plan 73-year-old man with coronary disease, previous PCI and paroxysmal atrial fib. I am seeing him again this morning at the request of the hospitalist because of recurrent AF with RVR. 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 His metoprolol is currently on hold. Despite this history he is demonstrating some sinus rhythm while he is in the hospital here. For now I will continue him on intravenous amiodarone and resume metoprolol giving him 100 mg orally this morning. He normally is on 200 mg according to the chart. He is systemically anticoagulated with apixaban. Will follow with you and adjust his medications depending on his clinical response. If the long-term strategy is rate control versus rhythm control then we may up titrate the metoprolol and discontinue the amiodarone which sounds like was the plan of his established physician. Pepe Yan MD [facility] Subjective Date/time seen: Date of service: 03/13/23 08:06 Interval history: Follow-up visit in this 73-year-old man with: Coronary artery disease and paroxysmal atrial fibrillation. Patient was hospitalized here for a number of days now with problems with sepsis, UTI, sacral decubitus. Asked to sign back on the patient's case this morning because of AF with RVR. He is completely asymptomatic of this arrhythmia. Started on intravenous amiodarone per the hospitalist service last evening. Exam Const: General: cooperative, comfortable and no acute distress; No healthy appearing or confusion Orientation/consciousness: oriented to person, patient oriented x3 and No confusion HENMT: Mouth: Yes moist mucous membranes Eyes: General: appearance normal, both eyes and all related structures Sclera: sclerae normal EOM: EOMs intact bilaterally Neck: Neck: supple and no JVD Thyroid: thyroid normal Carotids: no bruits Resp: Effort & Inspection: normal respiratory effort Auscultation: clear to auscultation bilaterally Cardio: Rate: tachycardic Rhythm: abnormal rhythm Heart sounds: no murmurs Other: Irregularly irregular GI: Inspection: normal to inspection Skin: General skin exam: normal color, no rashes or lesions noted and wounds noted (Apparently has a sacral decubitus) Wounds: wounds noted (Apparently has a sacral decubitus) Neuro: General: oriented to person, patient oriented x3 and No confusion Speech: normal speech Extrem: Right lower extremity: no edema Left lower extremity: no edema Other: Dorsalis pedis pulses are intact Psych: Appearance: grossly normal Mental Status: mental status grossly normal Affect: normal affect Objective Data Vital Signs Vital Signs: Vital Signs - 24 hr 03/12/23 08:44 03/12/23 08:34 03/12/23 16:00 Temperature 37.0 C Pulse Rate 101 H 100 Respiratory Rate 18 Blood Pressure 107/56 L 102/78 Pulse Oximetry 98 Oxygen Delivery Room Air 03/12/23 19:40 03/12/23 20:29 03/12/23 21:51 Temperature 37.1 C Pulse Rate 151 H 150 H Respiratory Rate 20 Blood Pressure 91/50 L 89/58 L Pulse Oximetry 98 Oxygen Delivery 03/12/23 20:00 03/12/23 20:00 03/12/23 22:44 Temperature Pulse Rate 152 H 156 H Respiratory Rate Blood Pressure 84/39 L Pulse Oximetry Oxygen Delivery Room Air 03/12/23 22:52 03/12/23 23:05 03/12/23 23:48 Temperature 37.1 C 36.6 C Pulse Rate 147 H 146 H 152 H Respiratory Rate 18 16 Blood Pressure 84/39 L 83/58 L 117/89 Pulse Oximetry 98 97 Oxygen Delivery 03/12/23 22:50 03/13/23 00:00 03/12/23 22:34 Temperature Pulse Rate 147 H 152 H 168 H Respiratory Rate 18 16 Blood Pressure Pulse Oximetry 98 97 Oxygen Delivery Room Air Room
--- NOTE | 2023-03-13 08:33 | PCOTNOTE ---
Per chart review, patient is not appropriate or stable to participate in therapy at this time. HR is elevated, 154 bpm. Will follow.
--- NOTE | 2023-03-13 08:34 | PCPTNOTE ---
The patient treatment was not able to be completed on 03/13/23 08:34 due to elevated heart rate. Will plan to continue treatment per plan of care when able
[2023-03-13 08:50] LABS: Glucose Point of Care 275 mg/dl (65-105)
[2023-03-13] MEDS: INSULIN ASPART (*BKC) 100 UNITS/ML SUB-Q ×3 (09:09→18:05)
[2023-03-13] MEDS: PANTOPRAZOLE SODIUM IV 40 MG VIAL IV PUSH ×2 (09:10→21:33)
[2023-03-13] MEDS: PREGABALIN (*CRX) 75 MG CAPSULE 150 MG PO (09:10)
[2023-03-13] MEDS: metFORMIN HCL XR 500 MG TAB.SR.24H 2000 MG PO (09:10)
[2023-03-13] MEDS: ASPIRIN 81 MG CHEWABLE TABLET PO (09:10)
[2023-03-13] MEDS: AMIODARONE HCL 200 MG TABLET PO (09:10)
[2023-03-13] MEDS: PRAVASTATIN SODIUM 20 MG TABLET 40 MG PO (09:10)
[2023-03-13] MEDS: EMPAGLIFLOZIN 25 MG TABLET PO (09:10)
[2023-03-13] MEDS: TAMSULOSIN HCL 0.4 MG CAPSULE PO (09:10)
[2023-03-13] MEDS: APIXABAN 5 MG TABLET PO ×2 (09:10→21:33)
[2023-03-13] MEDS: FINASTERIDE 5 MG TABLET PO (09:10)
[2023-03-13] MEDS: cefTRIAXone 2 GM/NS 100 ML 2 GM/100 ML BAG IVPB (09:11)
[2023-03-13] MEDS: METOPROLOL SUCCINATE EXT REL 100 MG TABCR PO ×2 (09:11→09:22)
[2023-03-13] MEDS: MONTELUKAST SODIUM 10 MG TABLET PO (09:11)
--- NOTE | 2023-03-13 10:40 | P.PNIM_ITS ---
Progress Note: A&P Assessment and Plan (1) Septic shock: Code(s): A41.9 - Sepsis, unspecified organism; R65.21 - Severe sepsis with septic shock Status: Acute Assessment and Plan: off pressors Vital stable (2) Acute pyelitis: Code(s): N10 - Acute pyelonephritis Status: Acute Assessment and Plan: Treatment as above 03/08/[address] scan 1. Distended bladder with bladder wall thickening, consistent with cystitis. 2. Moderate bilateral hydronephrosis and hydroureter with urothelial enhancement, consistent with pyelitis. 3. Sacral decubitus ulcer. No evidence of osteomyelitis. 4. Stable mild splenomegaly. (3) Hydronephrosis: Code(s): N13.30 - Unspecified hydronephrosis Status: Acute Assessment and Plan: Appreciate urology evaluation recommendation, continue tamsulosin and finasteride -urinary catheter was placed per Urology for urinary retention -urology recommended to keep the Whyte for 7-10 days did perform voiding trial (4) Acute renal insufficiency: Code(s): N28.9 - Disorder of kidney and ureter, unspecified Status: Acute Assessment and Plan: Patient with acute kidney injury with creatinine of 1.4 on admission -adequate fluid resuscitation -adequate urine output -creatinine has normalized -will continue to monitor renal function, electrolytes and urine output -no IV fluids as patient is drinking adequate amount of fluids (5) Anemia: Qualifiers: Anemia type: unspecified type Qualified Code(s): D64.9 - Anemia, unspecified Code(s): D64.9 - Anemia, unspecified Status: Acute Assessment and Plan: Folic acid and vitamin B12 within normal limit -iron panel was ordered on 03/09/2023 and was canceled for some -iron panel showed decreased iron levels, TIBC and% saturation. MCV is normal, likely anemia of chronic disease -stool for Hemoccult has been ordered and pending (6) Atrial fibrillation with RVR: Code(s): I48.91 - Unspecified atrial fibrillation Status: Acute Assessment and Plan: Patient with AFib RVR status post cardioversion x2 on admission on 03/08/2022 -currently in rapid ventricular rhythm -patient remains in AFib, amiodarone was never started -Appreciate cardiology evaluation, recommended amiodarone and home beta-alec when able -03/09 started p.o. amiodarone (7) Diabetes mellitus type 2, uncontrolled: Status: Acute Assessment and Plan: Accu-Cheks and sliding scale insulin -started patient on Jardiance and Janumet XR -discontinued Lantus (8) Hypertension: Code(s): I10 - Essential (primary) hypertension Status: Acute Assessment and Plan: Hold antihypertensives borderline blood pressures (9) Decubitus ulcer: Code(s): L89.90 - Pressure ulcer of unspecified site, unspecified stage Status: Acute Assessment and Plan: Wound care following the patient Plan to note patient does have sacral decubitus ulcer. he needs help and assistance with managing this. Patient also his severely debilitated and unable to help significantly to help maintain his wounds and also he is not mobile. Patient would benefit from hospital bed home. He requires frequent dressing changes and also frequent changes in position Which is hard for him to accomplished by himself. Hospital bed would be appropriate Subjective Date/time seen: 03/13/23 10:40 Interval history: Feeling better each day Exam Narrative: General: Pleasant patient in no
[2023-03-13 12:31] LABS: Glucose Point of Care 244 mg/dl (65-105)
[2023-03-13] MEDS: MUPIROCIN 2% OINT 22 GM TUBE 1 APPLIC TOPICAL (16:49)
[2023-03-13] MEDS: COLLAGENASE OINT 30 GM TUBE 1 APPLIC TOPICAL (16:49)
[2023-03-13 17:44] LABS: Glucose Point of Care 231 mg/dl (65-105)
[2023-03-13 20:47] LABS: Glucose Point of Care 260 mg/dl (65-105)
[2023-03-14] VITALS (17 sets, daily range): BP systolic 88–97; BP diastolic 55–62; PULSE 88–141; RESP 18–20; TEMP 36.3–36.6; O2SAT 96–100
[2023-03-14] MEDS: AMIODARONE 360 MG/D5W 200 ML 360 MG/200 ML BAG 16.67 MG IV CONT ×2 (04:50→17:27)
[2023-03-14 04:54] LABS: Hematocrit 30.7 % (42.0-52.0); Hemoglobin 8.9 g/dL (14.0-18.0); Mean Corpuscular Hemoglobin 24.1 pg (26-34); Mean Corpuscular Volume 83.2 fl (80-100); Mean Platelet Volume 10.3 fl (7.4-10.4); Platelet Count Result 253 k/mm3 (150-375); Red Blood Count 3.69 M/mm3 (4.6-6.20); Red Cell Distribution Width 18.3 % (11.5-14.5); White Blood Count 8.3 K/mm3 (4.5-10.0)
[2023-03-14 05:10] LABS: Anion Gap 7 mmol/L (8-16); Blood Urea Nitrogen 37 mg/dL (9-20); Carbon Dioxide 22 mmol/L (22-30); Chloride 104 mmol/L (98-107); Estimated CRCL calculation 81 ml/min; Estimated Glomerular Filt Rate > 60; Glucose 250 mg/dL (65-110); Magnesium 1.8 mg/dL (1.6-2.3); Phosphorus 2.8 mg/dL (2.5-4.5); Potassium 3.9 mmol/L (3.4-5.0); Sodium 133 mmol/L (137-145)
[2023-03-14 08:01] LABS: Glucose Point of Care 231 mg/dl (65-105)
--- NOTE | 2023-03-14 09:13 | PCOTNOTE ---
Spoke with nursing who stated that pt. HR is consistently more stable and therapy can resume treatment.
[2023-03-14] MEDS: MONTELUKAST SODIUM 10 MG TABLET PO (09:25)
[2023-03-14] MEDS: TAMSULOSIN HCL 0.4 MG CAPSULE PO (09:25)
[2023-03-14] MEDS: FINASTERIDE 5 MG TABLET PO (09:26)
[2023-03-14] MEDS: METOPROLOL SUCCINATE EXT REL 100 MG TABCR PO (09:26)
[2023-03-14] MEDS: metFORMIN HCL XR 500 MG TAB.SR.24H 2000 MG PO (09:26)
[2023-03-14] MEDS: PREGABALIN (*CRX) 75 MG CAPSULE 150 MG PO (09:26)
[2023-03-14] MEDS: PANTOPRAZOLE SODIUM IV 40 MG VIAL IV PUSH ×2 (09:26→20:17)
[2023-03-14] MEDS: AMIODARONE HCL 200 MG TABLET PO (09:26)
[2023-03-14] MEDS: APIXABAN 5 MG TABLET PO ×2 (09:27→20:17)
[2023-03-14] MEDS: PRAVASTATIN SODIUM 20 MG TABLET 40 MG PO (09:27)
[2023-03-14] MEDS: ASPIRIN 81 MG CHEWABLE TABLET PO (09:27)
[2023-03-14] MEDS: INSULIN ASPART (*BKC) 100 UNITS/ML SUB-Q ×2 (09:27→13:10)
[2023-03-14] MEDS: cefTRIAXone 2 GM/NS 100 ML 2 GM/100 ML BAG IVPB (09:27)
[2023-03-14] MEDS: EMPAGLIFLOZIN 25 MG TABLET PO (09:27)
[2023-03-14] MEDS: MUPIROCIN 2% OINT 22 GM TUBE 1 APPLIC TOPICAL (09:28)
[2023-03-14] MEDS: COLLAGENASE OINT 30 GM TUBE 1 APPLIC TOPICAL (09:28)
--- NOTE | 2023-03-14 09:56 | PM.PNCARD ---
Progress Note: A&P Assessment and Plan (1) Atrial fibrillation with rapid ventricular response: Code(s): I48.91 - Unspecified atrial fibrillation Status: Acute Assessment and Plan: Paroxysmal atrial fibrillation, recurrent atrial fibrillation with RVR during this hospitalization. Pursuing rate control strategy. Continue IV amiodarone for now while titrating metoprolol Increase metoprolol to 150mg daily Continue systemic a/c with 5mg b.i.d. Hopefully will be able to discontinue amiodarone with higher doses of metoprolol Subjective Date/time seen: 03/14/23 09:56 Interval history: Follow-up visit in this 73-year-old man with: Coronary artery disease and paroxysmal atrial fibrillation. Patient was hospitalized here for a number of days now with problems with sepsis, UTI, sacral decubitus. Asked to sign back on the patient's case this morning because of AF with RVR. He is completely asymptomatic of this arrhythmia. Started on intravenous amiodarone per the hospitalist service last evening. Date of service 03/14/2023: No complaints this morning. He remains in atrial fibrillation with rate typically between 100-120bpm. He is asymptomatic. Remains on amiodarone drip. Review of Systems Review of Systems: Gets around with a walker at home. All systems reviewed & are unremarkable except as noted in HPI and below (HPI) Constitutional: Constitutional: Denies fever(s) Eyes: Eyes: Reports no additional eye complaints ENT: Denies epistaxis Cardiovascular: Cardiovascular: Denies chest pain, Denies pedal edema, Denies lightheadedness and Denies dyspnea Respiratory: Respiratory: Denies chest congestion and Denies dyspnea Gastrointestinal: Gastrointestinal: Denies abdominal pain and Denies hematochezia Musculoskeletal: Musculoskeletal: Reports no additional musculoskeletal complaints (The other than his sacral decubitus) Integumentary/Breasts: Skin/Breast: Reports system reviewed and no additional complaints, except as docu Neurologic: Reports system reviewed and no additional complaints, except as documented, Denies behavioral changes and Denies confusion Psychiatric: Psychiatric: Denies behavioral changes and Denies confusion Exam Const: General: cooperative, comfortable and no acute distress; No healthy appearing or confusion Orientation/consciousness: oriented to person, patient oriented x3 and No confusion HENMT: Mouth: Yes moist mucous membranes Eyes: General: appearance normal, both eyes and all related structures Sclera: sclerae normal EOM: EOMs intact bilaterally Neck: Neck: supple and no JVD Thyroid: thyroid normal Carotids: no bruits Resp: Effort & Inspection: normal respiratory effort Auscultation: clear to auscultation bilaterally Cardio: Rate: regular rate and tachycardic Rhythm: regular rhythm and abnormal rhythm irregularly irregular Heart sounds: no murmurs GI: Inspection: normal to inspection Skin: General skin exam: normal color, no rashes or lesions noted and wounds noted (Apparently has a sacral decubitus) Wounds: wounds noted (Apparently has a sacral decubitus) Neuro: General: oriented to person, patient oriented x3 and No confusion Speech: normal speech Extrem: Right lower extremity: no edema Left lower extremity: no edema Psych: Appearance: grossly normal Mental Status: mental status grossly normal Affect: normal affect Objective Data Vital Signs Vital Signs: Vital Signs - 24 hr 03/13/23 10:00 03/13/23 12:00 03/13/23 16:00 Temperature 36.0 C L 36.3 C L Pulse Rate 128 H 118 H 54 L Respiratory Rate 20 16 Blood Pressure 93/66 L 88/44 L Pulse Oximetry 100 98 Oxygen Delivery 03/13/23 12:00 03/13/23 14:00 03/13/23 16:00 Temperature Pulse Rate 135 H 122 H 99 Respiratory Rate Blood Pressure Pulse Oximetry Oxygen Delivery 03/13/23 18:00 03/13/23 20:00 03/13/23 20:00 Temperature 36.9 C Pulse Rate 126 H 83 83 Res
[2023-03-14 11:49] LABS: Glucose Point of Care 280 mg/dl (65-105)
--- NOTE | 2023-03-14 13:36 | PCPTNOTE ---
Pt's HR in the 's. Spoke with Yany Milian and Dr. Carrero who OK pt participating therapy at this time.
--- NOTE | 2023-03-14 13:40 | PCOTNOTE ---
Attempted to see Patient this P.M. Patient refused, stated his stomach was bothering him, not feeling well. Patient asked if he could be checked on tomorrow, today is not a good day .
--- NOTE | 2023-03-14 13:46 | PCPTNOTE ---
Patient refused treatment this session due to patient not feeling well.
[2023-03-14 15:47] LABS: Glucose Point of Care 167 mg/dl (65-105)
[2023-03-14 20:30] LABS: Glucose Point of Care 294 mg/dl (65-105)
[2023-03-15] VITALS (18 sets, daily range): BP systolic 87–103; BP diastolic 47–65; PULSE 103–164; RESP 18–20; TEMP 36.3–36.9; O2SAT 96–100
[2023-03-15 05:17] LABS: Hematocrit 29.1 % (42.0-52.0); Hemoglobin 8.6 g/dL (14.0-18.0); Mean Corpuscular HGB Conc 29.6 g/dl (32-36); Mean Corpuscular Hemoglobin 24.6 pg (26-34); Mean Corpuscular Volume 83.4 fl (80-100); Mean Platelet Volume 10.9 fl (7.4-10.4); Platelet Count Result 234 k/mm3 (150-375); Red Blood Count 3.49 M/mm3 (4.6-6.20); Red Cell Distribution Width 18.4 % (11.5-14.5)
[2023-03-15 05:31] LABS: Anion Gap 6 mmol/L (8-16); Blood Urea Nitrogen 32 mg/dL (9-20); Carbon Dioxide 24 mmol/L (22-30); Chloride 103 mmol/L (98-107); Estimated CRCL calculation 81 ml/min; Estimated Glomerular Filt Rate > 60; Glucose 293 mg/dL (65-110); Magnesium 1.7 mg/dL (1.6-2.3); Phosphorus 2.7 mg/dL (2.5-4.5); Potassium 3.5 mmol/L (3.4-5.0); Sodium 133 mmol/L (137-145)
[2023-03-15] MEDS: AMIODARONE 360 MG/D5W 200 ML 360 MG/200 ML BAG 16.67 MG IV CONT ×2 (06:27→18:11)
[2023-03-15] MEDS: EMPAGLIFLOZIN 25 MG TABLET PO (08:03)
[2023-03-15] MEDS: PREGABALIN (*CRX) 75 MG CAPSULE 150 MG PO (08:03)
[2023-03-15] MEDS: CEFDINIR 300 MG CAPSULE PO ×2 (08:03→21:42)
[2023-03-15] MEDS: MONTELUKAST SODIUM 10 MG TABLET PO (08:03)
[2023-03-15] MEDS: PRAVASTATIN SODIUM 20 MG TABLET 40 MG PO (08:04)
[2023-03-15] MEDS: FINASTERIDE 5 MG TABLET PO (08:04)
[2023-03-15] MEDS: TAMSULOSIN HCL 0.4 MG CAPSULE PO (08:04)
[2023-03-15] MEDS: METOPROLOL SUCCINATE EXT REL 50 MG TABCR 150 MG PO (08:04)
[2023-03-15] MEDS: PANTOPRAZOLE SODIUM IV 40 MG VIAL IV PUSH ×2 (08:04→21:42)
[2023-03-15] MEDS: APIXABAN 5 MG TABLET PO ×2 (08:04→21:42)
[2023-03-15] MEDS: INSULIN ASPART (*BKC) 100 UNITS/ML SUB-Q ×3 (08:05→17:15)
[2023-03-15] MEDS: COLLAGENASE OINT 30 GM TUBE 1 APPLIC TOPICAL (08:10)
[2023-03-15] MEDS: MUPIROCIN 2% OINT 22 GM TUBE 1 APPLIC TOPICAL (08:10)
[2023-03-15] MEDS: AMIODARONE HCL 200 MG TABLET PO (08:11)
[2023-03-15] MEDS: metFORMIN HCL XR 500 MG TAB.SR.24H 2000 MG PO (08:11)
[2023-03-15] MEDS: ASPIRIN 81 MG CHEWABLE TABLET PO (08:11)
[2023-03-15 08:25] LABS: Glucose Point of Care 267 mg/dl (65-105)
--- NOTE | 2023-03-15 09:41 | PCPTNOTE ---
Attempted to see patient for PT, however patient declined due to patient on bed scott. Patient reported he was going to be a little bit on bed scott and declined to get up to commode.
[2023-03-15] MEDS: ACETAMINOPHEN 325 MG TABLET 650 MG PO (11:10)
[2023-03-15] MEDS: METOPROLOL SUCCINATE EXT REL 50 MG TABCR PO (11:33)
[2023-03-15 11:51] LABS: Glucose Point of Care 274 mg/dl (65-105)
--- NOTE | 2023-03-15 11:58 | PM.IMPN ---
Progress Note: A&P Assessment and Plan (1) Septic shock: Code(s): A41.9 - Sepsis, unspecified organism; R65.21 - Severe sepsis with septic shock Status: Acute Assessment and Plan: Resolved (2) Acute pyelitis: Code(s): N10 - Acute pyelonephritis Status: Acute Assessment and Plan: Continue Omnicef. Last day March 18, 2023. (3) Hydronephrosis: Code(s): N13.30 - Unspecified hydronephrosis Status: Acute Assessment and Plan: Appreciate urology evaluation recommendation, continue tamsulosin and oxybutynin. And finasteride. -urinary catheter was placed per Urology for urinary retention Will likely need follow-up with Urology as an outpatient for management of Whyte (4) Acute renal insufficiency: Code(s): N28.9 - Disorder of kidney and ureter, unspecified Status: Acute Assessment and Plan: Monitor kidney function. Monitor electrolytes. (5) Anemia: Qualifiers: Anemia type: unspecified type Qualified Code(s): D64.9 - Anemia, unspecified Code(s): D64.9 - Anemia, unspecified Status: Acute Assessment and Plan: Likely anemia of chronic disease. (6) Atrial fibrillation with RVR: Code(s): I48.91 - Unspecified atrial fibrillation Status: Acute Assessment and Plan: On IV amiodarone. Continue anticoagulation. Transitioning to oral metoprolol. Appreciate cardiology input. (7) Diabetes mellitus type 2, uncontrolled: Status: Acute Assessment and Plan: Monitor blood sugar (8) Hypertension: Code(s): I10 - Essential (primary) hypertension Status: Acute Assessment and Plan: Monitor (9) Decubitus ulcer: Code(s): L89.90 - Pressure ulcer of unspecified site, unspecified stage Status: Acute Assessment and Plan: Wound care following the patient Subjective Date/time seen: 03/15/23 11:58 Interval history: Still on amiodarone drip. Heart rate is still elevated. Other vitals stable. No new complaints. Exam Narrative: General: Pleasant patient in no acute distress HEENT:? Pupils equal reactive, sclera is clear, moist oral mucosa Neck:? Some Respiratory:? Clear to auscultation bilaterally, adequate air entry, no wheezing Cardiac:? Sinus tachycardia, S1-S2 is normal Abdomen:? Soft, nontender nondistended, normoactive bowel sounds Extremities:? No edema, multiple due to his Neuro:? Patient is awake, alert, oriented x3, nonfocal Skin:? Chronic venous stasis changes, flaky skin Psych:? Normal mentation and affect Objective Data Vital Signs Vital Signs: Vital Signs - 24 hr 03/14/23 12:00 03/14/23 12:00 03/14/23 14:00 Temperature Pulse Rate 118 H 98 Respiratory Rate Blood Pressure Pulse Oximetry Oxygen Delivery Room Air 03/14/23 15:50 03/14/23 16:00 03/14/23 16:00 Temperature 97.3 F L Pulse Rate 110 H 100 Respiratory Rate 20 Blood Pressure 93/57 L Pulse Oximetry 99 Oxygen Delivery Room Air 03/14/23 18:00 03/14/23 20:00 03/14/23 20:00 Temperature 97.9 F Pulse Rate 115 H 137 H 117 H Respiratory Rate 20 Blood Pressure 88/57 L Pulse Oximetry 100 Oxygen Delivery 03/14/23 20:00 03/14/23 22:00 03/15/23 00:00 Temperature 97.6 F Pulse Rate 137 H 113 H 112 H Respiratory Rate 20 20 Blood Pressure 94/52 L Pulse Oximetry 100 98 Oxygen Delivery Room Air 03/15/23 00:00 03/15/23 00:00 03/15/23 02:00 Temperature Pulse Rate 122 H 112 H 116 H Respiratory Rate 20 Blood Pressure Pulse Oximetry 98 Oxygen Delivery Room Air 03/15/23 04:00 03/15/23 04:00 03/15/23 04:00 Temperature 97.6 F Pulse Rate 130 H 125 H 125 H Respiratory Rate 20 20 Blood Pressure 96/65 L Pulse Oximetry 100 100 Oxygen Delivery Room Air 03/15/23 05:58 03/15/23 08:04 03/15/23 08:11 Temperature Pulse Rate 122 H 140 H 140 H Respiratory Rate Blood Pressure Pulse Oximetry
--- NOTE | 2023-03-15 12:18 | PM.PNCARD ---
Progress Note: A&P Assessment and Plan (1) Atrial fibrillation with rapid ventricular response: Code(s): I48.91 - Unspecified atrial fibrillation Status: Acute Assessment and Plan: Paroxysmal atrial fibrillation, recurrent atrial fibrillation with RVR during this hospitalization. Pursuing rate control strategy. Continue IV amiodarone for now while titrating metoprolol Increase metoprolol to 200mg daily Continue systemic a/c with 5mg b.i.d. Hopefully will be able to discontinue amiodarone with higher doses of metoprolol Subjective Date/time seen: 03/15/23 12:18 Interval history: Follow-up visit in this 73-year-old man with: Coronary artery disease and paroxysmal atrial fibrillation. Patient was hospitalized here for a number of days now with problems with sepsis, UTI, sacral decubitus. Asked to sign back on the patient's case this morning because of AF with RVR. He is completely asymptomatic of this arrhythmia. Started on intravenous amiodarone per the hospitalist service last evening. Date of service 03/14/2023: No complaints this morning. He remains in atrial fibrillation with rate typically between 100-120bpm. He is asymptomatic. Remains on amiodarone drip. Date of service 03/15/2023: Heart rate remains not well controlled. However, he is still asymptomatic. He does not have any chest pain, shortness of breath, or palpitations. Review of Systems Review of Systems: Gets around with a walker at home. All systems reviewed & are unremarkable except as noted in HPI and below (HPI) Constitutional: Constitutional: Denies fever(s) Eyes: Eyes: Reports no additional eye complaints ENT: Denies epistaxis Cardiovascular: Cardiovascular: Denies chest pain, Denies pedal edema, Denies lightheadedness and Denies dyspnea Respiratory: Respiratory: Denies chest congestion and Denies dyspnea Gastrointestinal: Gastrointestinal: Denies abdominal pain and Denies hematochezia Musculoskeletal: Musculoskeletal: Reports no additional musculoskeletal complaints (The other than his sacral decubitus) Integumentary/Breasts: Skin/Breast: Reports system reviewed and no additional complaints, except as docu Neurologic: Reports system reviewed and no additional complaints, except as documented, Denies behavioral changes and Denies confusion Psychiatric: Psychiatric: Denies behavioral changes and Denies confusion Exam Const: General: cooperative, comfortable and no acute distress; No healthy appearing or confusion Orientation/consciousness: oriented to person, patient oriented x3 and No confusion HENMT: Mouth: Yes moist mucous membranes Eyes: General: appearance normal, both eyes and all related structures Sclera: sclerae normal EOM: EOMs intact bilaterally Neck: Neck: supple and no JVD Thyroid: thyroid normal Carotids: no bruits Resp: Effort & Inspection: normal respiratory effort Auscultation: clear to auscultation bilaterally Cardio: Rate: regular rate and tachycardic Rhythm: regular rhythm and abnormal rhythm irregularly irregular Heart sounds: no murmurs Other: Irregularly irregular GI: Inspection: normal to inspection Skin: General skin exam: normal color, no rashes or lesions noted and wounds noted (Apparently has a sacral decubitus) Wounds: wounds noted (Apparently has a sacral decubitus) Neuro: General: oriented to person, patient oriented x3 and No confusion Speech: normal speech Extrem: Right lower extremity: no edema Left lower extremity: no edema Other: Dorsalis pedis pulses are intact Psych: Appearance: grossly normal Mental Status: mental status grossly normal Affect: normal affect Objective Data Vital Signs Vital Signs: Vital Signs - 24 hr 03/14/23 14:00 03/14/23 15:50 03/14/23 16:00 Temperature 36.3 C L Pulse Rate 98 110 H 100 Respiratory Rate 20 Blood Pressure 93/57 L Pulse Oximetry 99 Oxygen Delivery 03/14/23 16:00 03/14/23 18:00
--- NOTE | 2023-03-15 13:24 | PCPTNOTE ---
Patient refused treatment this session. Patient reported he was exhausted from doing a lot of rolling in bed earlier and that his stomach hurts, and that he does not want to do therapy today. Educated patient on the importance of therapy and getting up out of bed. Patient continued to refuse.
[2023-03-15] MEDS: oxyCODONE/ACETAMINOPHEN (*CRX) 5-325 MG TABLET 1 TABLET PO (13:36)
[2023-03-15] MEDS: BISACODYL 5 MG TABLET EC PO (14:04)
--- NOTE | 2023-03-15 16:16 | PC.NURSE ---
Pt IV site has infiltrated in the LFA from the Amiodarone drip this nurse called Pharmacy spoke to Miguel and was told to elevate arm and apply warm compresses and if pain does not subside give hyalidase, this nurse has elevated arm on a pillow, and warm compresses applied.
[2023-03-15 20:30] LABS: Glucose Point of Care 367 mg/dl (65-105)
[2023-03-16] VITALS (16 sets, daily range): BP systolic 79–100; BP diastolic 44–57; PULSE 92–138; RESP 18–19; TEMP 36.2–36.4; O2SAT 95–100
--- NOTE | 2023-03-16 | ECHO_ITS ---
Patient Info Name: John Warren Age: 73 years : 1950 Gender: Male Ht: 72 in Wt: 175 lbs BSA: 2.01 m2 HR: 114 bpm BP: 79 / 44 mmHg Heart Rhythm: Atrial Fibrillation Technical Quality: Good Exam Date: 03/16/2023 3:42 PM Exam Location: [facility] Patient Status: Inpatient Admit Date: 03/08/2023 Staff Ordering Physician: Lucy Tipton MD Nurse College: [employer] Daniel Clay RDCS Attending Provider: Sima Estes MD Exam Type: CA echo doppler color flow Study Info Indications - a-fib/hypotension Complete two-dimensional, color flow and Doppler transthoracic echocardiogram is performed. Summary 1. Complete two-dimensional, color flow and Doppler transthoracic echocardiogram is performed. 2. Left ventricular chamber dimension is normal. 3. Left ventricular systolic function is normal, estimated at 55-60%. 4. There is mildly increased left ventricular wall thickness. 5. The left ventricular diastolic function is indeterminate. 6. Left atrial chamber dimension is mildly enlarged. 7. There is mild mitral valve regurgitation. 8. The mitral valve has thickened leaflets. 9. The mitral valve annulus is mildly calcified. 10. There is mild tricuspid valve regurgitation. 11. The aortic root size at the sinus of Valsalva is dilated. Left Ventricle Left ventricular chamber dimension is normal. Left ventricular systolic function is normal, estimated at 55-60%. There is mildly increased left ventricular wall thickness. The left ventricular diastolic function is indeterminate. Right Ventricle Right ventricular chamber dimension is normal. Right ventricular systolic function is normal. Left Atria Left atrial chamber dimension is mildly enlarged. Right Atria Right atrial chamber dimension is normal. Atrial Septum Intact interatrial septum visualized by color flow imaging. Aortic Valve The aortic valve is trileaflet. There is mild aortic valve sclerosis. There is no aortic valve stenosis. There is trace aortic valve regurgitation. Pulmonic Valve The pulmonic valve is normal. There is no pulmonic valve stenosis. There is trace pulmonic regurgitation. Mitral Valve The mitral valve has thickened leaflets. There is no mitral valve stenosis. There is mild mitral valve regurgitation. The mitral valve annulus is mildly calcified. Tricuspid Valve The tricuspid valve leaflets are normal. There is no significant tricuspid valve stenosis. There is mild tricuspid valve regurgitation. No pulmonary hypertension, estimated pulmonary arterial systolic pressure is 29 mmHg. Pericardium/Pleural The pericardium appears normal. There is no pericardial effusion. Inferior Vena Cava Normal inferior vena cava with >50% collapse upon inspiration consistent with normal right atrial pressure, 10 mmHg. Aorta The aortic root size at the sinus of Valsalva is dilated. Left Ventricular Outflow Tract Name Value Normal LVOT 2D LVOT Diameter 2.1 cm LVOT Doppler LVOT Peak Gradient 3 mmHg LVOT Mean Gradient 1 mmHg LVOT VTI 15 cm LVOT VTI/AV VTI Ratio 1.3 LVOT Stroke V
[2023-03-16] MEDS: AMIODARONE 360 MG/D5W 200 ML 360 MG/200 ML BAG 16.67 MG IV CONT (05:40)
--- NOTE | 2023-03-16 08:23 | PCPTNOTE ---
Attempted to see patient for PT, however per RN patient's blood pressures are too low and advised not to see patient.
[2023-03-16] MEDS: metFORMIN HCL XR 500 MG TAB.SR.24H 2000 MG PO (09:08)
[2023-03-16] MEDS: ASPIRIN 81 MG CHEWABLE TABLET PO (09:08)
[2023-03-16] MEDS: PRAVASTATIN SODIUM 20 MG TABLET 40 MG PO (09:08)
[2023-03-16] MEDS: EMPAGLIFLOZIN 25 MG TABLET PO (09:09)
[2023-03-16] MEDS: MONTELUKAST SODIUM 10 MG TABLET PO (09:09)
[2023-03-16] MEDS: PREGABALIN (*CRX) 75 MG CAPSULE 150 MG PO (09:09)
[2023-03-16] MEDS: APIXABAN 5 MG TABLET PO ×2 (09:09→21:01)
[2023-03-16] MEDS: FINASTERIDE 5 MG TABLET PO (09:09)
[2023-03-16] MEDS: polyethylene glycoL 3350 17 GM POWD.PACK PO (09:10)
[2023-03-16] MEDS: TAMSULOSIN HCL 0.4 MG CAPSULE PO (09:10)
[2023-03-16] MEDS: COLLAGENASE OINT 30 GM TUBE 1 APPLIC TOPICAL (09:10)
[2023-03-16] MEDS: CEFDINIR 300 MG CAPSULE PO ×2 (09:10→21:01)
[2023-03-16] MEDS: PANTOPRAZOLE SODIUM IV 40 MG VIAL IV PUSH ×2 (09:10→21:02)
[2023-03-16] MEDS: INSULIN ASPART (*BKC) 100 UNITS/ML SUB-Q ×3 (09:11→18:33)
[2023-03-16] MEDS: MUPIROCIN 2% OINT 22 GM TUBE 1 APPLIC TOPICAL (09:12)
[2023-03-16] MEDS: AMIODARONE HCL 200 MG TABLET PO (09:20)
[2023-03-16 09:21] LABS: Glucose Point of Care 279 mg/dl (65-105)
[2023-03-16] MEDS: SODIUM CHLORIDE 0.9% IV 250 ML 100 ML IV CONT (09:54)
[2023-03-16 12:00] LABS: Glucose Point of Care 297 mg/dl (65-105)
--- NOTE | 2023-03-16 14:57 | PM.PNCARD ---
Progress Note: A&P Assessment and Plan (1) Atrial fibrillation with rapid ventricular response: Code(s): I48.91 - Unspecified atrial fibrillation Status: Acute Assessment and Plan: Paroxysmal atrial fibrillation, recurrent atrial fibrillation with RVR during this hospitalization. Pursuing rate control strategy. Continue IV amiodarone for now while. Metoprolol was increased to 200mg daily, however, patient cannot take Metoprolol at this time due to hypotension, therefore, Metoprolol on hold. Will give a dose of Digoxin today to improve heart rate with goal of weaning off the Amiodarone drip. Continue systemic a/c with Eliquis 5mg BID Subjective Date/time seen: 03/16/23 14:57 Interval history: Reason for visit: Atrial fibrillation with RVR 73 year old male with coronary artery disease and paroxysmal atrial fibrillation.? Patient was hospitalized here for a number of days now with problems with sepsis, UTI, sacral decubitus.? Asked to sign back on the patient's case because of AF with RVR.? He is completely asymptomatic of this arrhythmia.? Started on intravenous amiodarone per the hospitalist service Date of service 03/14/2023: No complaints this morning.? He remains in atrial fibrillation with rate typically between 100-120bpm.? He is asymptomatic.? Remains on amiodarone drip. Date of service 03/15/2023: Heart rate remains not well controlled.? However, he is still asymptomatic.? He does not have any chest pain, shortness of breath, or palpitations.? Date of service 03/16: Still with intermittent RVR. Patient was hyoptensive this morning, Metoprolol could not be given due to SBP in the 70s. Review of Systems Review of Systems: Denies chest pain, palpitations, shortness of breath Exam Const: General: no acute distress Eyes: General: appearance normal, both eyes and all related structures Sclera: sclerae normal Resp: Effort & Inspection: normal respiratory effort Cardio: Rate: tachycardic Rhythm: abnormal rhythm irregularly irregular Neuro: Speech: normal speech Psych: Mental Status: mental status grossly normal Affect: normal affect Objective Data Vital Signs Vital Signs: Vital Signs - 24 hr 03/15/23 16:00 03/15/23 16:00 03/15/23 16:00 Temperature 36.9 C Pulse Rate 112 H 115 H Respiratory Rate 18 Blood Pressure 90/47 L Pulse Oximetry 97 Oxygen Delivery Room Air 03/15/23 18:00 03/15/23 20:39 03/15/23 20:00 Temperature 36.3 C L Pulse Rate 115 H 119 H 115 H Respiratory Rate 18 Blood Pressure 87/49 L Pulse Oximetry 97 Oxygen Delivery 03/15/23 20:00 03/15/23 23:24 03/16/23 03:42 Temperature 36.3 C L 36.3 C L Pulse Rate 104 H 104 H Respiratory Rate 18 18 Blood Pressure 93/54 L 88/49 L Pulse Oximetry 96 96 Oxygen Delivery Room Air 03/15/23 22:00 03/16/23 00:00 03/16/23 00:00 Temperature Pulse Rate 103 H 99 104 H Respiratory Rate 18 Blood Pressure Pulse Oximetry 96 Oxygen Delivery Room Air 03/16/23 02:00 03/16/23 04:00 03/16/23 04:00 Temperature Pulse Rate 101 H 102 H 104 H Respiratory Rate 18 Blood Pressure Pulse Oximetry 96 Oxygen Delivery Room Air 03/16/23 06:00 03/16/23 08:00 03/16/23 09:20 Temperature 36.2 C L Pulse Rate 92 111 H 114 H Respiratory Rate 19 Blood Pressure 79/44 L Pulse Oximetry 100 Oxygen Delivery 03/16/23 08:00 03/16/23 10:00 03/16/23 12:00 Temperature 36.4 C L Pulse Rate 97 103 H 92 Respiratory Rate 19 Blood Pressure 89/57 L Pulse Oximetry 99 Oxygen Delivery 03/16/23 12:00 03/16/23 14:00 Temperature Pulse Rate 108 H 101 H Respiratory Rate Blood Pressure Pulse Oximetry Oxygen Delivery Intake/Output Intake/Output: Intake & Output 03/13/23 03/14/23 03/15/23 03/16/23 23:59 23:59 23:59 23:59 Intake Total 3230 3760 5000 1450 Output Total 0876 8222 0667 0951 Balance 1130 -590 -2250 -2700 Meds/Results Medication
[2023-03-16] MEDS: DIGOXIN INJ 250 MCG/ML 2 ML AMP (*BKC) IV PUSH ×2 (16:13→21:01)
--- NOTE | 2023-03-16 16:17 | PHAR ---
SPOKE WITH RN ABOUT PATIENT EXPERIENCING PAIN FROM EXTRAVASATION FROM AMIODARONE DRIP. DISCUSSED USING HYALURANIDASE SUBQ OR INTRADERMAL FOR TREATMENT. ALSO ASKED WHY PATIENT IS STILL ON AMIODARONE DRIP AND TABLETS AT THE SAME TIME. RN STATED THAT CARDIOLOGY WANTED IT THIS WAY BUT SHE WILL DISCUSS IT WITH THEM.
--- NOTE | 2023-03-16 17:15 | WPDPN ---
Progress Note: A&P Assessment and Plan (1) Septic shock: Code(s): A41.9 - Sepsis, unspecified organism; R65.21 - Severe sepsis with septic shock Status: Acute Assessment and Plan: Resolved (2) Acute pyelitis: Code(s): N10 - Acute pyelonephritis Status: Acute Assessment and Plan: Continue Omnicef. Last day March 18, 2023. (3) Hydronephrosis: Code(s): N13.30 - Unspecified hydronephrosis Status: Acute Assessment and Plan: Appreciate urology evaluation recommendation, continue tamsulosin and oxybutynin. And finasteride. -urinary catheter was placed per Urology for urinary retention Will likely need follow-up with Urology as an outpatient for management of Whyte (4) Acute renal insufficiency: Code(s): N28.9 - Disorder of kidney and ureter, unspecified Status: Acute Assessment and Plan: Monitor kidney function. Monitor electrolytes. (5) Anemia: Qualifiers: Anemia type: unspecified type Qualified Code(s): D64.9 - Anemia, unspecified Code(s): D64.9 - Anemia, unspecified Status: Acute Assessment and Plan: Likely anemia of chronic disease. (6) Atrial fibrillation with RVR: Code(s): I48.91 - Unspecified atrial fibrillation Status: Acute Assessment and Plan: On IV amiodarone. Continue anticoagulation. Transitioning to oral metoprolol. Appreciate cardiology input. 03/16/2023 interval history, 73-year-old male with a atrial fibrillation RVR seen by cardiology being treated with and mid drip and metoprolol was added however patient blood pressure is soft unable to tolerate metoprolol will hold medication and monitor patient will be seen [employer] and further recommendation to follow. (7) Diabetes mellitus type 2, uncontrolled: Status: Acute Assessment and Plan: Monitor blood sugar (8) Hypertension: Code(s): I10 - Essential (primary) hypertension Status: Acute Assessment and Plan: Monitor (9) Decubitus ulcer: Code(s): L89.90 - Pressure ulcer of unspecified site, unspecified stage Status: Acute Assessment and Plan: Wound care following the patient Subjective Date/time seen: 03/16/23 17:15 Interval history: 03/16/2023 interval history, 73-year-old male with a atrial fibrillation RVR seen by cardiology being treated with and mid drip and metoprolol was added however patient blood pressure is soft unable to tolerate metoprolol will hold medication and monitor patient will be seen [employer] [place] [employer] and further recommendation to follow. Review of Systems Review of Systems: All systems reviewed & are unremarkable except as noted in HPI and below Exam Narrative: Appears chronically ill Patient is comfortable, NAD HEENT: eyes are clear and none icteric LUNGS: Normal respiratory effort ABD: Not distended Lower extremities: no edema SKIN: nonjaundiced Neuro: grossly intact. Objective Data Vital Signs Vital Signs: Vital Signs - 24 hr 03/15/23 18:00 03/15/23 20:39 03/15/23 20:00 Temperature 97.4 F L Pulse Rate 115 H 119 H 115 H Respiratory Rate 18 Blood Pressure 87/49 L Pulse Oximetry 97 Oxygen Delivery 03/15/23 20:00 03/15/23 23:24 03/16/23 03:42 Temperature 97.3 F L 97.3 F L Pulse Rate 104 H 104 H Respiratory Rate 18 18 Blood Pressure 93/54 L 88/49 L Pulse Oximetry 96 96 Oxygen Delivery Room Air 03/15/23 22:00 03/16/23 00:00 03/16/23 00:00 Temperature Pulse Rate 103 H 99 104 H Respiratory Rate 18 Blood Pressure Pulse Oximetry 96 Oxygen Delivery Room Air 03/16/23 02:00 03/16/23 04:00 03/16/23 04:00 Temperature Pulse Rate 101 H 102 H 104 H Respiratory Rate 18 Blood Pressure Pulse Oximetry 96 Oxygen Delivery Room Air 03/16/23 06:00 03/16/23 08:00 03/16/23 09:20 Temperature 97.2 F L Pulse Rate 92 111 H 114 H Respiratory Rate 19 Blood Pressure 79/44 L
[2023-03-16 17:57] LABS: Glucose Point of Care 235 mg/dl (65-105)
[2023-03-16] MEDS: HYALURONIDASE, HUMAN RECOMB. 150 UNITS/ML VIAL SUB-Q (18:33)
[2023-03-16 20:11] LABS: Glucose Point of Care 263 mg/dl (65-105)
[2023-03-17] VITALS (17 sets, daily range): BP systolic 84–122; BP diastolic 42–62; PULSE 63–140; RESP 16–20; TEMP 36.1–36.9; O2SAT 92–98
[2023-03-17] MEDS: AMIODARONE 150 MG/D5W 100 ML 150 MG/100 ML BAG 600 MG IV CONT ×2 (05:51→13:39)
[2023-03-17 08:02] LABS: Glucose Point of Care 249 mg/dl (65-105)
[2023-03-17] MEDS: polyethylene glycoL 3350 17 GM POWD.PACK PO (09:05)
[2023-03-17] MEDS: PREGABALIN (*CRX) 75 MG CAPSULE 150 MG PO (09:05)
[2023-03-17] MEDS: TAMSULOSIN HCL 0.4 MG CAPSULE PO (09:05)
[2023-03-17] MEDS: PANTOPRAZOLE SODIUM IV 40 MG VIAL IV PUSH ×2 (09:05→21:26)
[2023-03-17] MEDS: ASPIRIN 81 MG CHEWABLE TABLET PO (09:06)
[2023-03-17] MEDS: PRAVASTATIN SODIUM 20 MG TABLET 40 MG PO (09:06)
[2023-03-17] MEDS: FINASTERIDE 5 MG TABLET PO (09:06)
[2023-03-17] MEDS: CEFDINIR 300 MG CAPSULE PO ×2 (09:06→21:26)
[2023-03-17] MEDS: MONTELUKAST SODIUM 10 MG TABLET PO (09:07)
[2023-03-17] MEDS: APIXABAN 5 MG TABLET PO ×2 (09:07→21:26)
[2023-03-17] MEDS: EMPAGLIFLOZIN 25 MG TABLET PO (09:07)
[2023-03-17] MEDS: AMIODARONE HCL 200 MG TABLET PO (09:07)
[2023-03-17] MEDS: ERGOCALCIFEROL 50,000 UNITS CAPSULE 50000 UNITS PO (09:22)
[2023-03-17] MEDS: metFORMIN HCL XR 500 MG TAB.SR.24H 2000 MG PO (09:23)
[2023-03-17] MEDS: INSULIN ASPART (*BKC) 100 UNITS/ML SUB-Q ×2 (09:23→13:31)
[2023-03-17 11:56] LABS: Glucose Point of Care 208 mg/dl (65-105)
--- NOTE | 2023-03-17 13:10 | PM.PNCARD ---
Progress Note: A&P Assessment and Plan (1) Atrial fibrillation with rapid ventricular response: Code(s): I48.91 - Unspecified atrial fibrillation Status: Acute Assessment and Plan: Paroxysmal atrial fibrillation, recurrent atrial fibrillation with RVR during this hospitalization. Pursuing rate control strategy. Metoprolol was increased to 200mg daily, however, patient cannot take Metoprolol at this time due to hypotension, therefore, Metoprolol on hold. Will resume Amiodarone drip today due to RVR. Given dose of IV Digoxin 250mcg x 2 yesterday, will start oral daily Digoxin. Will need to check a Digoxin level in a week. Continue systemic a/c with Eliquis 5mg BID Subjective Date/time seen: 03/17/23 13:10 Interval history: Reason for visit: Atrial fibrillation with RVR 73 year old male with coronary artery disease and paroxysmal atrial fibrillation.? Patient was hospitalized here for a number of days now with problems with sepsis, UTI, sacral decubitus.? Asked to sign back on the patient's case because of AF with RVR.? He is completely asymptomatic of this arrhythmia.? Started on intravenous amiodarone per the hospitalist service Date of service 03/14/2023: No complaints this morning.? He remains in atrial fibrillation with rate typically between 100-120bpm.? He is asymptomatic.? Remains on amiodarone drip. Date of service 03/15/2023: Heart rate remains not well controlled.? However, he is still asymptomatic.? He does not have any chest pain, shortness of breath, or palpitations.? Date of service 03/16: Still with intermittent RVR. Patient was hyoptensive this morning, Metoprolol could not be given due to SBP in the 70s. Date of service 03/17: Yesterday afternoon, Amiodarone drip was weaned off, however later he went back into RVR and was given a dose of Digoxin IV overnight and then later on an Amiodarone bolus. HR in the 130s this morning but patient remains asymptomatic from it and is comfortably sleeping. Review of Systems Review of Systems: Denies chest pain, palpitations, shortness of breath Exam Const: General: no acute distress Eyes: General: appearance normal, both eyes and all related structures Sclera: sclerae normal Resp: Effort & Inspection: normal respiratory effort Cardio: Rate: tachycardic Rhythm: abnormal rhythm irregularly irregular Neuro: Speech: normal speech Psych: Mental Status: mental status grossly normal Affect: normal affect Objective Data Vital Signs Vital Signs: Vital Signs - 24 hr 03/16/23 14:00 03/16/23 16:13 03/16/23 16:00 Temperature 36.3 C L Pulse Rate 101 H 117 H 111 H Respiratory Rate 18 Blood Pressure 100/57 L Pulse Oximetry 99 Oxygen Delivery 03/16/23 16:00 03/16/23 18:00 03/16/23 18:00 Temperature Pulse Rate 105 H 112 H 118 H Respiratory Rate Blood Pressure Pulse Oximetry Oxygen Delivery 03/16/23 20:16 03/16/23 21:01 03/17/23 00:00 Temperature 36.4 C 36.9 C Pulse Rate 126 H 118 H 128 H Respiratory Rate 18 16 Blood Pressure 88/51 L 91/46 L Pulse Oximetry 95 98 Oxygen Delivery 03/17/23 00:00 03/16/23 20:00 03/17/23 00:00 Temperature Pulse Rate 138 H 127 H Respiratory Rate Blood Pressure Pulse Oximetry Oxygen Delivery Room Air 03/17/23 01:40 03/17/23 04:00 03/17/23 04:00 Temperature 36.1 C L Pulse Rate 110 H 136 H Respiratory Rate 20 Blood Pressure 84/42 L Pulse Oximetry 96 Oxygen Delivery Room Air 03/17/23 04:00 03/17/23 05:51 03/17/23 08:00 Temperature 36.6 C Pulse Rate 126 H 130 H 78 Respiratory Rate 18 Blood Pressure 84/62 L 87/48 L Pulse Oximetry 97 Oxygen Delivery 03/17/23 08:55 03/17/23 09:07 03/17/23 12:00 Temperature 36.4 C Pulse Rate 128 H 131 H 63 Respiratory Rate 16 Blood Pressure 101/49 L Pulse Oximetry 98 Oxygen Delivery Intake/Output Intake/Output: Intake & Output 03/14/23 03/15/2303/16
[2023-03-17] MEDS: BISACODYL 5 MG TABLET EC PO (13:39)
--- NOTE | 2023-03-17 13:47 | PCPTNOTE ---
Attempted to see patient for PT, however patient's heart rate 130s lying in bed. Patient not appropriate for PT at this time.
[2023-03-17] MEDS: AMIODARONE 360 MG/D5W 200 ML 360 MG/200 ML BAG 33.33 MG IV CONT (13:53)
[2023-03-17] MEDS: MUPIROCIN 2% OINT 22 GM TUBE 1 APPLIC TOPICAL (13:54)
[2023-03-17] MEDS: COLLAGENASE OINT 30 GM TUBE 1 APPLIC TOPICAL (13:54)
[2023-03-17 16:01] LABS: Glucose Point of Care 159 mg/dl (65-105)
--- NOTE | 2023-03-17 17:08 | WPDPN ---
Progress Note: A&P Assessment and Plan (1) Septic shock: Code(s): A41.9 - Sepsis, unspecified organism; R65.21 - Severe sepsis with septic shock Status: Acute Assessment and Plan: Resolved (2) Acute pyelitis: Code(s): N10 - Acute pyelonephritis Status: Acute Assessment and Plan: Continue Omnicef. Last day March 18, 2023. (3) Hydronephrosis: Code(s): N13.30 - Unspecified hydronephrosis Status: Acute Assessment and Plan: Appreciate urology evaluation recommendation, continue tamsulosin and oxybutynin. And finasteride. -urinary catheter was placed per Urology for urinary retention Will likely need follow-up with Urology as an outpatient for management of Whyte (4) Acute renal insufficiency: Code(s): N28.9 - Disorder of kidney and ureter, unspecified Status: Acute Assessment and Plan: Monitor kidney function. Monitor electrolytes. (5) Anemia: Qualifiers: Anemia type: unspecified type Qualified Code(s): D64.9 - Anemia, unspecified Code(s): D64.9 - Anemia, unspecified Status: Acute Assessment and Plan: Likely anemia of chronic disease. (6) Atrial fibrillation with RVR: Code(s): I48.91 - Unspecified atrial fibrillation Status: Acute Assessment and Plan: On IV amiodarone. Continue anticoagulation. Transitioning to oral metoprolol. Appreciate cardiology input. 03/17/2023 interval history, 73-year-old male with a atrial fibrillation RVR seen by cardiology being treated with amiodarone drip and metoprolol was added however patient blood pressure was soft unable to tolerate metoprolol held the medication, patient was seen by Cardiology digoxin was added and will monitor patient will be seen door tender and further recommendation to follow. (7) Diabetes mellitus type 2, uncontrolled: Status: Acute Assessment and Plan: Monitor blood sugar (8) Hypertension: Code(s): I10 - Essential (primary) hypertension Status: Acute Assessment and Plan: Monitor (9) Decubitus ulcer: Code(s): L89.90 - Pressure ulcer of unspecified site, unspecified stage Status: Acute Assessment and Plan: Wound care following the patient Subjective Date/time seen: 03/17/23 17:08 Interval history: 03/17/2023 interval history, 73-year-old male with a atrial fibrillation RVR seen by cardiology being treated with amiodarone drip and metoprolol was added however patient blood pressure was soft unable to tolerate metoprolol held the medication, patient was seen by Cardiology digoxin was added and will monitor patient will be seen door tender and further recommendation to follow. Review of Systems Review of Systems: All systems reviewed & are unremarkable except as noted in HPI and below Exam Narrative: Appears chronically ill Patient is comfortable, NAD HEENT: eyes are clear and none icteric LUNGS: Normal respiratory effort ABD: Not distended Lower extremities: no edema SKIN: nonjaundiced Neuro: grossly intact. Objective Data Vital Signs Vital Signs: Vital Signs - 24 hr 03/16/23 18:00 03/16/23 18:00 03/16/23 20:16 Temperature 97.6 F Pulse Rate 112 H 118 H 126 H Respiratory Rate 18 Blood Pressure 88/51 L Pulse Oximetry 95 Oxygen Delivery 03/16/23 21:01 03/17/23 00:00 03/17/23 00:00 Temperature 98.5 F Pulse Rate 118 H 128 H Respiratory Rate 16 Blood Pressure 91/46 L Pulse Oximetry 98 Oxygen Delivery Room Air 03/16/23 20:00 03/17/23 00:00 03/17/23 01:40 Temperature Pulse Rate 138 H 127 H 110 H Respiratory Rate Blood Pressure Pulse Oximetry Oxygen Delivery 03/17/23 04:00 03/17/23 04:00 03/17/23 04:00 Temperature 96.9 F L Pulse Rate 136 H 126 H Respiratory Rate 20 Blood Pressure 84/42 L Pulse Oximetry 96 Oxygen Delivery Room Air 03/17/23 05:51 03/17/23 08:00 03/17/23 08:55 T
[2023-03-17] MEDS: METOPROLOL TARTRATE INJ 5 MG/5 ML VIAL IV PUSH (17:41)
[2023-03-17 19:37] LABS: Glucose Point of Care 246 mg/dl (65-105)
[2023-03-17] MEDS: AMIODARONE 360 MG/D5W 200 ML 360 MG/200 ML BAG 16.67 MG IV CONT (20:00)
[2023-03-18] VITALS (16 sets, daily range): BP systolic 91–111; BP diastolic 52–58; PULSE 93–132; RESP 16–18; TEMP 36.4–36.7; O2SAT 94–99
--- NOTE | 2023-03-18 07:08 | PC.NURSE ---
Paper documentation exists on this patient due to [employer] downtime on 03/18/23 from [id number] .
[2023-03-18 08:07] LABS: Glucose Point of Care 242 mg/dl (65-105)
[2023-03-18] MEDS: PANTOPRAZOLE SODIUM IV 40 MG VIAL IV PUSH ×2 (09:20→22:10)
[2023-03-18] MEDS: EMPAGLIFLOZIN 25 MG TABLET PO (09:20)
[2023-03-18] MEDS: PRAVASTATIN SODIUM 20 MG TABLET 40 MG PO (09:20)
[2023-03-18] MEDS: metFORMIN HCL XR 500 MG TAB.SR.24H 2000 MG PO (09:20)
[2023-03-18] MEDS: APIXABAN 5 MG TABLET PO ×2 (09:20→22:11)
[2023-03-18] MEDS: ASPIRIN 81 MG CHEWABLE TABLET PO (09:20)
[2023-03-18] MEDS: CEFDINIR 300 MG CAPSULE PO ×2 (09:20→22:11)
[2023-03-18] MEDS: FINASTERIDE 5 MG TABLET PO (09:21)
[2023-03-18] MEDS: TAMSULOSIN HCL 0.4 MG CAPSULE PO (09:21)
[2023-03-18] MEDS: MONTELUKAST SODIUM 10 MG TABLET PO (09:21)
[2023-03-18] MEDS: PREGABALIN (*CRX) 75 MG CAPSULE 150 MG PO (09:21)
[2023-03-18] MEDS: DIGOXIN 250 MCG TABLET PO (09:21)
[2023-03-18] MEDS: INSULIN ASPART (*BKC) 100 UNITS/ML SUB-Q ×2 (09:22→12:36)
--- NOTE | 2023-03-18 10:25 | PCNFU ---
Nutrition Follow-Up Complete: Increased protein needs as related to wounds as evidenced by unstagable pressure ulcer reported. Adequate Intake of at least 75% of meals/supplements - Goal being met Goal: Pt current nutrition is Diabetic consistent carb diet. 75-100% meals. Reinier BID for wound healing. No intakes noted on Reinier. Nutrition recommendation: Continue with current nutrition care plan and monitoring. Agree with orders Last recorded weight is 78.3 kg. Bowel Motility: Last BM 03/17/23 Labs Reviewed: Hgb 8.6, Hct 29.1, Na 133, BUN 32, Glu 242 Meds Noted: Eliquis, protonix, lyrica Skin: Unstageable pressure injury sacrum. On reinier Additional Notes: Continue to monitor. Intakes improved Will montior weight, labs, skin, oral intake every 7 days.
--- NOTE | 2023-03-18 10:27 | PM.PNCARD ---
Progress Note: A&P Assessment and Plan (1) Atrial fibrillation with rapid ventricular response: Code(s): I48.91 - Unspecified atrial fibrillation Status: Acute Assessment and Plan: Paroxysmal atrial fibrillation, recurrent atrial fibrillation with RVR during this hospitalization. Pursuing rate control strategy. Metoprolol was increased to 200mg daily, however, patient unable to take Metoprolol yesterday therefore, Metoprolol on hold. BP improved, so will cautiously add back low dose metoprolol since he is still in RVR Continue Amiodarone drip today due to RVR. Digoxin added yesterday, Continue Digoxin. Will need to check a Digoxin level in a week. Continue systemic a/c with Eliquis 5mg BID Subjective Date/time seen: 03/18/23 10:27 Interval history: Reason for visit: Atrial fibrillation with RVR 73 year old male with coronary artery disease and paroxysmal atrial fibrillation.? Patient was hospitalized here for a number of days now with problems with sepsis, UTI, sacral decubitus.? Asked to sign back on the patient's case because of AF with RVR.? He is completely asymptomatic of this arrhythmia.? Started on intravenous amiodarone per the hospitalist service Date of service 03/14/2023: No complaints this morning.? He remains in atrial fibrillation with rate typically between 100-120bpm.? He is asymptomatic.? Remains on amiodarone drip. Date of service 03/15/2023: Heart rate remains not well controlled.? However, he is still asymptomatic.? He does not have any chest pain, shortness of breath, or palpitations.? Date of service 03/16: Still with intermittent RVR. Patient was hyoptensive this morning, Metoprolol could not be given due to SBP in the 70s. Date of service 03/17: Yesterday afternoon, Amiodarone drip was weaned off, however later he went back into RVR and was given a dose of Digoxin IV overnight and then later on an Amiodarone bolus. HR in the 130s this morning but patient remains asymptomatic from it and is comfortably sleeping. Date of service 03/18/2023: Heart rate remains elevated. BP better today. He is asymptomatic from the tachycardia. Review of Systems Review of Systems: All systems reviewed & are unremarkable except as noted in HPI and below (HPI) Constitutional: Constitutional: Denies fever(s) Eyes: Eyes: Reports no additional eye complaints ENT: Denies epistaxis Cardiovascular: Cardiovascular: Denies chest pain, Denies pedal edema, Denies lightheadedness and Denies dyspnea Respiratory: Respiratory: Denies chest congestion and Denies dyspnea Gastrointestinal: Gastrointestinal: Denies abdominal pain and Denies hematochezia Musculoskeletal: Musculoskeletal: Reports no additional musculoskeletal complaints (The other than his sacral decubitus) Integumentary/Breasts: Skin/Breast: Reports system reviewed and no additional complaints, except as docu Neurologic: Reports system reviewed and no additional complaints, except as documented, Denies behavioral changes and Denies confusion Psychiatric: Psychiatric: Denies behavioral changes and Denies confusion Exam Const: General: cooperative, comfortable and no acute distress; No healthy appearing or confusion Orientation/consciousness: oriented to person, patient oriented x3 and No confusion HENMT: Mouth: Yes moist mucous membranes Eyes: General: appearance normal, both eyes and all related structures Sclera: sclerae normal EOM: EOMs intact bilaterally Neck: Neck: supple and no JVD Thyroid: thyroid normal Carotids: no bruits Resp: Effort & Inspection: normal respiratory effort Auscultation: clear to auscultation bilaterally Cardio: Rate: regular rate and tachycardic Rhythm: regular rhythm and abnormal rhythm irregularly irregular Heart sounds: no murmurs Other: Irregularly irregular GI: Inspection: normal to inspection Skin: General skin exam: normal color, no rashes or lesions noted and wounds noted (Apparently has a
--- NOTE | 2023-03-18 10:27 | PCPTNOTE ---
Patient refused treatment this session. Patient reported everything hurts and he's been moving up and down in bed, and does not want to do therapy. Educated patient on the importance of moving and changing positions in bed, and gave encouragement for participation. Patient continued to refuse.
[2023-03-18 11:59] LABS: Hematocrit 28.2 % (42.0-52.0); Hemoglobin 8.2 g/dL (14.0-18.0); Mean Corpuscular HGB Conc 29.1 g/dl (32-36); Mean Corpuscular Hemoglobin 24.3 pg (26-34); Mean Corpuscular Volume 83.4 fl (80-100); Mean Platelet Volume 11.4 fl (7.4-10.4); Platelet Count Result 220 k/mm3 (150-375); Red Blood Count 3.38 M/mm3 (4.6-6.20); Red Cell Distribution Width 18.4 % (11.5-14.5); White Blood Count 8.6 K/mm3 (4.5-10.0)
[2023-03-18 12:21] LABS: Anion Gap 7 mmol/L (8-16); Blood Urea Nitrogen 36 mg/dL (9-20); Calcium 7.4 mg/dL (8.4-10.2); Carbon Dioxide 21 mmol/L (22-30); Chloride 105 mmol/L (98-107); Estimated CRCL calculation 92 ml/min; Estimated Glomerular Filt Rate > 60; Glucose 242 mg/dL (65-110); Magnesium 1.8 mg/dL (1.6-2.3); Potassium 3.9 mmol/L (3.4-5.0); Sodium 133 mmol/L (137-145)
[2023-03-18 12:28] LABS: Glucose Point of Care 224 mg/dl (65-105)
[2023-03-18] MEDS: METOPROLOL TARTRATE 12.5 MG TABLET PO ×2 (12:33→22:10)
--- NOTE | 2023-03-18 13:23 | PCCCNOTE ---
On 03/18/23, the student, [Ileana Guy], provided care and completed [facility] documentation on this patient. I have reviewed the student's documentation and agree with the findings.
--- NOTE | 2023-03-18 14:56 | PCPTNOTE ---
Patient refused treatment this session due to bilateral arm pain.
[2023-03-18] MEDS: SOD HYPOCHLORITE 1/4 STRENGTH 473 ML 1 APPLIC TOPICAL ×2 (15:00→22:12)
--- NOTE | 2023-03-18 15:12 | PCOTNOTE ---
The patient treatment was not able to be completed on 03/18 @15:10 Patient declined stating he is to tired and in to much pain. Patient stated he would try tomorrow. Will plan to continue treatment per plan of care.
--- NOTE | 2023-03-18 15:37 | WPDCN ---
Assessment and Plan Assessment and plan (1) Decubitus ulcer: Code(s): L89.90 - Pressure ulcer of unspecified site, unspecified stage Status: Acute Assessment and Plan: Patient sacral decubitus ulcer which has some extension necrotic process in the subcutaneous tissues. He is going to need surgical debridement of this area ventrally and extended wound care. Would like to get his cardiology issues stabilized before into an operating room to debride the ulcer. Continue local wound as per the wound care nurses recommendations. We will continue to follow for now and hopefully cardiology issues can be stabilized by early next week and he can have the sacral decubitus ulcer debrided in the operating room. Will follow. HPI Data of Consult Date/Time: 03/18/23 15:37 Requesting Physician: Sima Estes MD Primary Care Provider: Mario Salmeron, Consult Narrative Reason for consult: sacral decubitus ulcer Narrative: John Warren is a 73 year old male prolonged hospitalization due to urosepsis. He has a large sacral decubitus wound which is foul smelling and has purulent drainage. I have been asked to evaluate the wound to see if it would need surgical debridement. A more recent concern the patient has an irregular heart rhythm and tachycardia sometimes causing hypotension. He is currently on amiodarone drip. Review of Systems Review of Systems: The remainder of the review of systems to include constitutional, HEENT, cardiovascular, respiratory, GI, , integumentary, musculoskeletal, endocrine, immunologic, hematologic, psychiatric, and neurologic are all negative except for which is mentioned above in the HPI. 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 Family History Family History Father Cancer Hypertension Heart disease Mother Cancer Diabetes mellitus Hypertension Heart disease Sibling Cancer Hypertension Heart disease Other Asthma Carcinoma of colon Cerebrovascular accident Depression Family history of arthritis Family history of cardiovascular disease Family history of chronic obstructive pulmonary disease Family history of malignant neoplasm Family history of malignant neoplasm of breast in first degree relative Family history of mental disorder Malignant neoplasm of prostate Social History Social History Social History: Surrogate medical decision maker: Rocio Peña, daughter. Code status: Full code. Smoking status: Former smoker Tobacco type: cigarettes Second hand tobacco smoke exposure: No Alcohol intake: never Substance use: never Substance use type: does not use Lack of Transportation: No Lack of Food: Never True Current Housing: I Have Housing Concerned About Future Housing: Decline to Answer Difficulty Paying Gas/Electric Bills: No Difficulty Paying for Meds: No Currently Unemployed: No Education: Decline to Answer Difficulty w/ Childcare or Family Care: No Spiritual care concerns: No Meds Home Medications and Allergies Home Medications Medication Instructions Recorded Confirmed Type montelukast 10 mg tablet 10 mg PO DAILY 05/11/21 03/08/23 History tamsulosin 0.4 mg capsule 0.4 mg PO QA #30 caps 09/03/22
--- NOTE | 2023-03-18 16:48 | WPDPN ---
Progress Note: A&P Assessment and Plan (1) Septic shock: Code(s): A41.9 - Sepsis, unspecified organism; R65.21 - Severe sepsis with septic shock Status: Acute Assessment and Plan: Resolved (2) Acute pyelitis: Code(s): N10 - Acute pyelonephritis Status: Acute Assessment and Plan: Continue Omnicef. Last day March 18, 2023. (3) Hydronephrosis: Code(s): N13.30 - Unspecified hydronephrosis Status: Acute Assessment and Plan: Appreciate urology evaluation recommendation, continue tamsulosin and oxybutynin. And finasteride. -urinary catheter was placed per Urology for urinary retention Will likely need follow-up with Urology as an outpatient for management of Whyte (4) Acute renal insufficiency: Code(s): N28.9 - Disorder of kidney and ureter, unspecified Status: Acute Assessment and Plan: Monitor kidney function. Monitor electrolytes. (5) Anemia: Qualifiers: Anemia type: unspecified type Qualified Code(s): D64.9 - Anemia, unspecified Code(s): D64.9 - Anemia, unspecified Status: Acute Assessment and Plan: Likely anemia of chronic disease. (6) Atrial fibrillation with RVR: Code(s): I48.91 - Unspecified atrial fibrillation Status: Acute Assessment and Plan: On IV amiodarone. Continue anticoagulation. Transitioning to oral metoprolol. Appreciate cardiology input. 03/18/2023 interval history, 73-year-old male with a atrial fibrillation RVR seen by cardiology being treated with amiodarone drip and metoprolol was added however patient blood pressure was soft unable to tolerate metoprolol held the medication, patient was seen by Cardiology digoxin was added HR is trending down and blood pressure is improving, patient has significant sacral decubital ulcers and necrosis, was seen by surgery service, patient will need surgical debridement however patient is not a good candidate for the surgery, once cardiac issues have stabilized may consider surgical interventon, will monitor patient will be seen private investigator surveillance and further recommendation to follow. (7) Diabetes mellitus type 2, uncontrolled: Status: Acute Assessment and Plan: Monitor blood sugar (8) Hypertension: Code(s): I10 - Essential (primary) hypertension Status: Acute Assessment and Plan: Monitor (9) Decubitus ulcer: Code(s): L89.90 - Pressure ulcer of unspecified site, unspecified stage Status: Acute Assessment and Plan: Wound care following the patient Subjective Date/time seen: 03/18/23 16:48 Interval history: On IV amiodarone. Continue anticoagulation. Transitioning to oral metoprolol. Appreciate cardiology input. 03/18/2023 interval history, 73-year-old male with a atrial fibrillation RVR seen by cardiology being treated with amiodarone drip and metoprolol was added however patient blood pressure was soft unable to tolerate metoprolol held the medication, patient was seen by Cardiology digoxin was added HR is trending down and blood pressure is improving, patient has significant sacral decubital ulcers and necrosis, was seen by surgery service, patient will need surgical debridement however patient is not a good candidate for the surgery, once cardiac issues have stabilized may consider surgical interventon, will monitor patient will be seen private investigator surveillance and further recommendation to follow. Review of Systems Review of Systems: ROS unobtainable: Yes unobtainable due to mental status Exam Narrative: Appears chronically ill Patient is comfortable, NAD HEENT: eyes are clear and none icteric LUNGS: Normal respiratory effort ABD: Not distended Lower extremities: no edema SKIN: nonjaundiced Neuro: grossly intact. Objective Data Vital Signs Vital Signs: Vital Signs - 24 hr 03/17/23 17:41 03/17/23 18:00 03/17/23 20:00 Temperature 97.5 F L Pulse Rate 138 H 106 H 140 H
[2023-03-18 17:03] LABS: Appearance Urine Cloudy (Clear); Bacteria Urine None Seen /hpf; Bilirubin Urine Negative (Negative); Blood Urine 2+ (Negative); Color Urine Yellow (Yellow); Glucose Urine UA 3+ mg/dL (Negative); Ketones Urine Negative (Negative); Leukocyte Esterase Ur 2+ LEU/UL (Negative); Need Manual Microscopic Reviewed; Nitrate Urine Negative (Negative); Non Pathogenic Casts 0-2; Protein Urine 1+ mg/dL (Negative); Specific Grav Ur 1.019 (1.001-1.035); Squamous Epithelial Cell Urine None seen /hpf (Few); Urobilinogen Urine 0.2 mg/dL (<2.0); WBC Urine >100 /hpf
[2023-03-18 17:04] LABS: Add Urine Microscopic? YES
[2023-03-18] MEDS: AMIODARONE 360 MG/D5W 200 ML 360 MG/200 ML BAG 16.67 MG IV CONT (17:15)
[2023-03-18 17:45] LABS: Glucose Point of Care 186 mg/dl (65-105)
[2023-03-18 19:41] LABS: Glucose Point of Care 229 mg/dl (65-105)
[2023-03-19] VITALS (20 sets, daily range): BP systolic 72–101; BP diastolic 33–49; PULSE 105–166; RESP 16–22; TEMP 36.6–38.1; O2SAT 91–98
[2023-03-19] MEDS: AMIODARONE 360 MG/D5W 200 ML 360 MG/200 ML BAG 16.67 MG IV CONT ×2 (04:09→16:54)
[2023-03-19 04:58] LABS: Hematocrit 28.3 % (42.0-52.0); Hemoglobin 8.3 g/dL (14.0-18.0); Mean Corpuscular HGB Conc 29.3 g/dl (32-36); Mean Corpuscular Hemoglobin 24.1 pg (26-34); Mean Platelet Volume 11.2 fl (7.4-10.4); Platelet Count Result 220 k/mm3 (150-375); Red Blood Count 3.45 M/mm3 (4.6-6.20); White Blood Count 7.3 K/mm3 (4.5-10.0)
[2023-03-19 05:08] LABS: Anion Gap 10 mmol/L (8-16); Blood Urea Nitrogen 32 mg/dL (9-20); Calcium 7.3 mg/dL (8.4-10.2); Carbon Dioxide 20 mmol/L (22-30); Chloride 105 mmol/L (98-107); Estimated CRCL calculation 92 ml/min; Estimated Glomerular Filt Rate > 60; Glucose 218 mg/dL (65-110); Magnesium 1.9 mg/dL (1.6-2.3); Potassium 3.6 mmol/L (3.4-5.0); Sodium 135 mmol/L (137-145)
[2023-03-19 08:34] LABS: Glucose Point of Care 204 mg/dl (65-105)
[2023-03-19] MEDS: PANTOPRAZOLE SODIUM IV 40 MG VIAL IV PUSH ×2 (09:17→20:38)
[2023-03-19] MEDS: metFORMIN HCL XR 500 MG TAB.SR.24H 2000 MG PO (09:17)
[2023-03-19] MEDS: APIXABAN 5 MG TABLET PO ×2 (09:18→20:38)
[2023-03-19] MEDS: DIGOXIN 250 MCG TABLET PO (09:18)
[2023-03-19] MEDS: PRAVASTATIN SODIUM 20 MG TABLET 40 MG PO (09:18)
[2023-03-19] MEDS: FINASTERIDE 5 MG TABLET PO (09:18)
[2023-03-19] MEDS: EMPAGLIFLOZIN 25 MG TABLET PO (09:18)
[2023-03-19] MEDS: PREGABALIN (*CRX) 75 MG CAPSULE 150 MG PO (09:18)
[2023-03-19] MEDS: METOPROLOL TARTRATE 12.5 MG TABLET PO ×2 (09:18→20:38)
[2023-03-19] MEDS: TAMSULOSIN HCL 0.4 MG CAPSULE PO (09:18)
[2023-03-19] MEDS: INSULIN ASPART (*BKC) 100 UNITS/ML SUB-Q ×2 (09:19→13:21)
[2023-03-19] MEDS: MONTELUKAST SODIUM 10 MG TABLET PO (09:19)
[2023-03-19] MEDS: ASPIRIN 81 MG CHEWABLE TABLET PO (09:19)
[2023-03-19] MEDS: oxyCODONE/ACETAMINOPHEN (*CRX) 5-325 MG TABLET 1 TABLET PO (09:41)
[2023-03-19] MEDS: BISACODYL 5 MG TABLET EC PO (09:41)
--- NOTE | 2023-03-19 10:22 | PCPTNOTE ---
Attempted physical therapy, pt reports he is on the bed scott at this time.
--- NOTE | 2023-03-19 10:42 | PM.PNCARD ---
Progress Note: A&P Assessment and Plan (1) Atrial fibrillation with rapid ventricular response: Code(s): I48.91 - Unspecified atrial fibrillation Status: Acute Assessment and Plan: Paroxysmal atrial fibrillation, recurrent atrial fibrillation with RVR during this hospitalization. Pursuing rate control strategy. On metoprolol Continue Amiodarone drip today due to RVR. Digoxin added also Continue systemic a/c with Eliquis 5mg BID Obviously rate control strategy is not working. He is on amiodarone drip, metoprolol as well as digoxin and heart rate is still in the 120s to 150s. He will likely need a repeat cardioversion next week with anesthesia. For now continue current regimen as he is tolerating his elevated heart rate (2) Hypokalemia: Code(s): E87.6 - Hypokalemia Status: Acute Assessment and Plan: Potassium today is 3.6. Will replace with 40 mEq of p.o. potassium chloride x1 (3) Chronic anticoagulation: Code(s): Z79.01 - intermediate (current) use of anticoagulants Status: Acute Assessment and Plan: Continue Eliquis Subjective Date/time seen: 03/19/23 10:42 Interval history: Reason for visit: Atrial fibrillation with RVR 73 year old male with coronary artery disease and paroxysmal atrial fibrillation.? Patient was hospitalized here for a number of days now with problems with sepsis, UTI, sacral decubitus.? Asked to sign back on the patient's case because of AF with RVR.? He is completely asymptomatic of this arrhythmia.? Started on intravenous amiodarone per the hospitalist service Date of service 03/14/2023: No complaints this morning.? He remains in atrial fibrillation with rate typically between 100-120bpm.? He is asymptomatic.? Remains on amiodarone drip. Date of service 03/15/2023: Heart rate remains not well controlled.? However, he is still asymptomatic.? He does not have any chest pain, shortness of breath, or palpitations.? Date of service 03/16: Still with intermittent RVR. Patient was hyoptensive this morning, Metoprolol could not be given due to SBP in the 70s. Date of service 03/17: Yesterday afternoon, Amiodarone drip was weaned off, however later he went back into RVR and was given a dose of Digoxin IV overnight and then later on an Amiodarone bolus. HR in the 130s this morning but patient remains asymptomatic from it and is comfortably sleeping. Date of service 03/19/2023: Heart rate is still elevated despite high-dose metoprolol, amiodarone and digoxin. He denies any chest pain or shortness of breath Review of Systems Review of Systems: Denies chest pain, palpitations, shortness of breath All systems reviewed & are unremarkable except as noted in HPI and below (HPI) Constitutional: Constitutional: Denies fever(s) Eyes: Eyes: Reports no additional eye complaints ENT: Denies epistaxis Cardiovascular: Cardiovascular: Denies chest pain, Denies pedal edema, Denies lightheadedness and Denies dyspnea Respiratory: Respiratory: Denies chest congestion and Denies dyspnea Gastrointestinal: Gastrointestinal: Denies abdominal pain and Denies hematochezia Musculoskeletal: Musculoskeletal: Reports no additional musculoskeletal complaints (The other than his sacral decubitus) Integumentary/Breasts: Skin/Breast: Reports system reviewed and no additional complaints, except as docu Neurologic: Reports system reviewed and no additional complaints, except as documented, Denies behavioral changes and Denies confusion Psychiatric: Psychiatric: Denies behavioral changes and Denies confusion Exam Const: General: cooperative, comfortable and no acute distress; No healthy appearing or confusion Orientation/consciousness: oriented to person, patient oriented x3 and No confusion HENMT: Mouth: Yes moist mucous membranes Eyes: General: appearance normal, both eyes and all related structures Sclera: sclerae normal EOM: EOMs intact bilaterally Neck:
[2023-03-19] MEDS: SOD HYPOCHLORITE 1/4 STRENGTH 473 ML 1 APPLIC TOPICAL (11:54)
[2023-03-19 12:27] LABS: Glucose Point of Care 240 mg/dl (65-105)
--- NOTE | 2023-03-19 15:41 | PCOTNOTE ---
Attempted to see pt for Occupational Therapy treatment. Pt is having difficulty keeping eyes open and is very lethargic. RN was present during attempt and states that he is more sleepily than normal. Will attempt to per POC duration/frequency when appropriate.
[2023-03-19 15:50] LABS: Glucose Point of Care 246 mg/dl (65-105)
[2023-03-19 16:30] LABS: Lactic Acid Reflex 2.8 mmol/L (0.7-2.0)
--- NOTE | 2023-03-19 17:21 | WPDPN ---
Progress Note: A&P Assessment and Plan (1) Septic shock: Code(s): A41.9 - Sepsis, unspecified organism; R65.21 - Severe sepsis with septic shock Status: Acute Assessment and Plan: Resolved (2) Acute pyelitis: Code(s): N10 - Acute pyelonephritis Status: Acute Assessment and Plan: Continue Omnicef. Last day March 18, 2023. (3) Hydronephrosis: Code(s): N13.30 - Unspecified hydronephrosis Status: Acute Assessment and Plan: Appreciate urology evaluation recommendation, continue tamsulosin and oxybutynin. And finasteride. -urinary catheter was placed per Urology for urinary retention Will likely need follow-up with Urology as an outpatient for management of Whyte (4) Acute renal insufficiency: Code(s): N28.9 - Disorder of kidney and ureter, unspecified Status: Acute Assessment and Plan: Monitor kidney function. Monitor electrolytes. (5) Anemia: Qualifiers: Anemia type: unspecified type Qualified Code(s): D64.9 - Anemia, unspecified Code(s): D64.9 - Anemia, unspecified Status: Acute Assessment and Plan: Likely anemia of chronic disease. (6) Atrial fibrillation with RVR: Code(s): I48.91 - Unspecified atrial fibrillation Status: Acute Assessment and Plan: On IV amiodarone. Continue anticoagulation. Transitioning to oral metoprolol. Appreciate cardiology input. 03/19/2023 interval history, 73-year-old male with a atrial fibrillation RVR seen by cardiology being treated with amiodarone drip and metoprolol was added however patient blood pressure was soft unable to tolerate metoprolol held the medication, patient was seen by Cardiology digoxin was added HR is trending down and blood pressure is improving, patient has significant sacral decubital ulcers and necrosis, was seen by surgery service, patient will need surgical debridement however patient is not a good candidate for the surgery, once cardiac issues have stabilized may consider surgical interventon, today patient remains clinically stable however he has developed fever and more somnolent, suspect patient has again developed sepsis from his wound, will collect blood culture and wound culture start the patient, ceftriaxone, 2 g q.day, Flagyl 500 mg q.8 and vancomycin per pharmacy will monitor patient will be seen sumac tanner and further recommendation to follow. (7) Diabetes mellitus type 2, uncontrolled: Status: Acute Assessment and Plan: Monitor blood sugar (8) Hypertension: Code(s): I10 - Essential (primary) hypertension Status: Acute Assessment and Plan: Monitor (9) Decubitus ulcer: Code(s): L89.90 - Pressure ulcer of unspecified site, unspecified stage Status: Acute Assessment and Plan: Wound care following the patient Subjective Date/time seen: 03/19/23 17:21 Interval history: 03/19/2023 interval history, 73-year-old male with a atrial fibrillation RVR seen by cardiology being treated with amiodarone drip and metoprolol was added however patient blood pressure was soft unable to tolerate metoprolol held the medication, patient was seen by Cardiology digoxin was added HR is trending down and blood pressure is improving, patient has significant sacral decubital ulcers and necrosis, was seen by surgery service, patient will need surgical debridement however patient is not a good candidate for the surgery, once cardiac issues have stabilized may consider surgical interventon, today patient remains clinically stable however he has developed fever and more somnolent, suspect patient has again developed sepsis from his wound, will collect blood culture and wound culture start the patient, ceftriaxone, 2 g q.day, Flagyl 500 mg q.8 and vancomycin per pharmacy will monitor patient will be seen sumac tanner and further recommendation to follow. Review of Systems Review of Systems: ROS unobtainable: Yes u
[2023-03-19 19:14] LABS: Reflex Lactic Acid Yes or No Add Lactic
[2023-03-19 20:02] LABS: Glucose Point of Care 283 mg/dl (65-105)
[2023-03-19 20:04] LABS: Lactic Acid 2.9 mmol/L (0.7-2.0)
[2023-03-19] MEDS: INSULIN GLARGINE (*BKC) 100 UNITS/ML 10 UNITS SUB-Q (20:42)
[2023-03-19] MEDS: cefTRIAXone 2 GM/NS 100 ML 2 GM/100 ML BAG IVPB (21:45)
[2023-03-19] MEDS: metroNIDAZOLE 500 MG/ISO 100ML 500 MG/100 ML BAG 100 MG IVPB (21:46)
[2023-03-19] MEDS: SODIUM CHLORIDE 0.9% IV 1,000 ML 999 ML IV CONT (23:24)
[2023-03-20] VITALS (46 sets, daily range): BP systolic 52–127; BP diastolic 36–87; PULSE 97–130; RESP 18–28; TEMP 36.7–37.3; O2SAT 96–100
[2023-03-20] MEDS: SODIUM CHLORIDE 0.9% IV 1,000 ML 999 ML IV CONT ×2 (01:24→03:35)
[2023-03-20] MEDS: NOREPINEPHRINE 8 MG/D5W 250 ML 8 MG/250 ML BAG 37.5 MG IV CONT (02:48)
--- NOTE | 2023-03-20 02:50 | PM.EVENT ---
Event Note Event Note Event Note: Nursing staff notified me around 01:30 that the patient had been hypotensive. The patient's chart was reviewed and case was discussed with nursing staff. From what I can tell that around 16:00 today the patient has spiked a fever on expectedly. At that time the daytime/on-call hospitalist had ordered repeat blood cultures which are pending. A lactic acid was also checked which was found to be elevated at 2.8. The patient had a repeat UA on the with the repeat urine culture that was reportedly negative. The patient was not on IV fluids. Nursing staff called the on-call nurse practitioner when the patient's reflex lactic acid went up to 2.9. The on-call nurse practitioner at that time place patient on normal saline 125 mL an hour for 1 L around 22:30. With the next vitals checked the patient was found to be acutely hypotensive. The patient usually around 4-5 Liters of urine output daily but yesterday only had 2 L out and today he only had 300 mL of urine output during day shift and had only had 50 mL out per evening shift. Nurse practitioner change the fluid order to 1 L fluid bolus. Nursing staff called me after the fluid bolus was completed shortly after midnight. The patient's blood pressures were still low with the 80s over 40s. The patient was still intermittently tachycardic with AFib and has been on an amiodarone drip. His heart rate did improved slightly with a fluids. His heart rate had gone up to the 160s. But was back down to the 120s. Nursing staff called me since patient had not had any urine output I asked them to bladder scan. When they bladder scanned patient had over 400 mL in his bladder. They had to flush the catheter but eventually got 300 mL of turbid almost purulent-appearing urine. It was accompanied by some harder black colored sediment fragments. Towards the end of clearing the catheter the urine appeared pink tinged. I did give the patient an order for another L fluid bolus. Nursing staff told me that the patient was having significant abdominal pain on their evaluation. By time I came down to evaluate the patient the 2 L was about half-way infused. Despite the additional 500 mL of bolus patient was still hypotensive with blood pressures of 70s over 50s. On exam patient's abdomen was soft but he had marked tenderness in the periumbilical and suprapubic region. He had hypoactive bowel sounds. Some splenomegaly. No rebound no guarding. He was alert oriented x4. But when I was explaining the patient that I was going to move him to the ICU and discussed further imaging. I was telling the patient he would get some pressors through his PICC line. He then made some responses that were demonstrating some element of confusion. However he had no other neurologic changes on exam. His responses did not seem to relate to the conversation. Patient also has a known decubitus ulcer. I decided to send the patient for a stat CT of the abdomen and pelvis for further evaluation given his sudden change in condition. The patient was transferred to the ICU prior to CT result being obtained. I did discuss the patient's case with the prompt care rn. Patient is already on antibiotic therapy with Rocephin Flagyl and vancomycin. The prompt care rn agreed with starting the patient on Levophed. The patient's serum bicarb from the morning of the was slightly low at 20. Given his lactic acidosis and his hypotension and did not feel that her to give the patient an amp of bicarb as the patient was requiring Levophed at 20 and blood pressures were still marginal. After bicarb administration the patient's blood pressures did improve up to the low 100s. As far as I can tell the patient's total urine output for the last 24 hours been around 650 mL total. I had difficulty figuring out what antibiotics patient was on and the duration and frequency. I did have a discussion with the pharmacist who assisted me. The patient e
--- NOTE | 2023-03-20 03:00 | PC.NURSE ---
Dr Hartman aware of sepsis risk; pt transferred to ICU for vasopressors.
[2023-03-20] MEDS: SODIUM BICARBONATE 8.4% 50 MEQ/50 ML SYRINGE IV PUSH (03:03)
[2023-03-20] MEDS: SODIUM CHLORIDE 0.9% IV 1,000 ML 100 ML IV CONT (03:40)
--- NOTE | 2023-03-20 03:46 | PC.NURSE ---
Addendum entered by Viv Byers RN 03/20/23 03:47: This patient, John Warren, was received from [[id number]] on 03/20/23 at 0230. Patient/family oriented to unit policies and routines Original Note: This patient, John Warren, was received from [[id number]] on 03/20/23 at 0346. Patient/family oriented to unit policies and routines
--- NOTE | 2023-03-20 04:07 | PC.NURSE ---
At approximately 0200, Hopen here to further evaluate the patient. Patient was on his second liter of normal saline, however B/P continued to run in the 60s and 70s systolic. Plan was for a CT of the abdomen and pelvis with contrast due to ongoing sepsis. Patient taken to CT after consent was obtained by patient who remains oriented x 3. After the CT, the patient was transferred to the ICU for further care. Levophed was started and his B/P increased to 120 systolic. I called Rocio Peña (daughter) and updated her on the patient's condition. All questions answered. Please see Physician Communication Assessment for further documentation.
[2023-03-20 05:11] LABS: Hematocrit 29.3 % (42.0-52.0); Hemoglobin 8.8 g/dL (14.0-18.0); Mean Corpuscular Hemoglobin 24.3 pg (26-34); Mean Corpuscular Volume 80.9 fl (80-100); Mean Platelet Volume 11.5 fl (7.4-10.4); Platelet Count Result 316 k/mm3 (150-375); Red Blood Count 3.62 M/mm3 (4.6-6.20); Red Cell Distribution Width 18.3 % (11.5-14.5)
[2023-03-20 05:21] LABS: Anion Gap 9 mmol/L (8-16); Blood Urea Nitrogen 49 mg/dL (9-20); Calcium 6.7 mg/dL (8.4-10.2); Carbon Dioxide 19 mmol/L (22-30); Chloride 105 mmol/L (98-107); Estimated CRCL calculation 45 ml/min; Estimated Glomerular Filt Rate 46; Glucose 282 mg/dL (65-110); Lactic Acid Reflex 2.1 mmol/L (0.7-2.0); Magnesium 1.6 mg/dL (1.6-2.3); Potassium 3.5 mmol/L (3.4-5.0); Sodium 133 mmol/L (137-145)
[2023-03-20] MEDS: metroNIDAZOLE 500 MG/ISO 100ML 500 MG/100 ML BAG 100 MG IVPB ×3 (05:46→20:27)
[2023-03-20] MEDS: AMIODARONE 360 MG/D5W 200 ML 360 MG/200 ML BAG 16.67 MG IV CONT (05:48)
[2023-03-20] MEDS: CENTRAL LINE FLUSH 10 ML IV PUSH ×3 (05:58→19:48)
--- NOTE | 2023-03-20 07:57 | WPDINTPN ---
Progress Note: A&P Assessment and Plan (1) Septic shock: Code(s): A41.9 - Sepsis, unspecified organism; R65.21 - Severe sepsis with septic shock Status: Acute Assessment and Plan: 03/20/2023: Patient was transferred from the intermediate Unit after being found hypotensive despite 2.5 L of IV fluid bolus. PICC line was inserted and patient was started on Levophed. Patient has minimal urine output on 03/19 despite he drinking lot of fluids and receiving IV fluid bolus. Whyte was flushed, with return of purulent drainage in the urine tubing along with sediments. -continue Levophed to maintain MAP > 65 mmHg at all times propofol adequate end organ perfusion -source likely UTI/pyelonephritis, decubitus ulcer, possible cholecystitis as seen on the CT scan below - CT scan of the abdomen and pelvis showed 1. Bilateral hydronephrosis with urothelial enhancement, suspicious for ascending urinary tract infection and/or pyelonephritis. 2: Distended gallbladder with small amount of surrounding fluid. Cannot exclude cholecystitis. 3:? Right sacral decubitus ulcer. No evidence for osteomyelitis. 4:? Bibasilar airspace disease, most likely dependent atelectasis. Small pleural effusions -will switch antibiotics to meropenem, vancomycin Flagyl (03/20) -Will add sodium bicarbonate maintenance IV fluids -lactic is 2.1 this morning -03/20 acute kidney injury with creatinine increased to 1.5 from 0.7 on 03/19. Continue to monitor urine output -03/19: Blood cultures obtained -03/20: Wound culture obtained -03/20: Have ordered UA and urine culture 03/18: Urine cultures have been negative (2) Acute pyelitis: Code(s): N10 - Acute pyelonephritis Status: Acute Assessment and Plan: Treatment as above 03/20Will repeat renal ultrasound (3) Hydronephrosis: Code(s): N13.30 - Unspecified hydronephrosis Status: Acute Assessment and Plan: Urology was following the patient, recommended to keep the Whyte catheter before voiding trial -will continue to flash Whyte at regular intervals (4) Acute renal insufficiency: Code(s): N28.9 - Disorder of kidney and ureter, unspecified Status: Acute Assessment and Plan: Patient with acute kidney injury with creatinine of 1.5 on 03/20 (from 0.7) -adequate fluid resuscitation -lactic acid trending down -patient on see Levophed, will maintain MAP > 65 mmHg for adequate end organ perfusion -will continue to monitor renal function, electrolytes and urine output -start sodium bicarb infusion (5) Anemia: Qualifiers: Anemia type: unspecified type Qualified Code(s): D64.9 - Anemia, unspecified Code(s): D64.9 - Anemia, unspecified Status: Acute Assessment and Plan: Folic acid and vitamin B12 within normal limit -iron panel showed decreased iron levels, TIBC and% saturation. MCV is normal, likely anemia of chronic disease -stool for Hemoccult has been ordered -hemoglobin has been stable (6) Atrial fibrillation with RVR: Code(s): I48.91 - Unspecified atrial fibrillation Status: Acute Assessment and Plan: Patient with AFib RVR status post cardioversion x2 on admission on 03/08/2022 -patient was placed on metoprolol, digoxin and p.o. amiodarone by Cardiology -in the intermediate Unit patient remained AFib RVR and amiodarone infusion was started -patient now in shock, holding metoprolol -continue digoxin -continue amiodarone infusion, I asked the bedside RN to increase the amiodarone to 1 mg/min infusion -cardiology following the patient -patient on Eliquis which I have currently held since patient may need debridement of his decubitus/pressure ulcer -will start patient on therapeutic Lovenox 1mg/kg subQ q.12 hours (7) Diabetes mellitus type 2, uncontrolled: Status: Acute Assessment and Plan: Accu-Cheks and sliding scale insulin -continue Jardiance and Janumet XR -increasing Lantus (8
[2023-03-20 08:07] LABS: Reflex Lactic Acid Yes or No Add Lactic
[2023-03-20 08:17] LABS: Glucose Point of Care 260 mg/dl (65-105)
[2023-03-20] MEDS: SODIUM BICARBONATE 8.4% 150 MEQ in WATER, STERILE FOR INJECTION 950 ML 100 MEQ IV CONT ×2 (08:55→17:42)
[2023-03-20] MEDS: ENOXAPARIN 80 MG/0.8 ML SYRINGE SUB-Q ×2 (08:55→19:46)
[2023-03-20] MEDS: POTASSIUM CHLORIDE 20 MEQ ER TABLET 40 MEQ PO (08:55)
[2023-03-20] MEDS: INSULIN ASPART (*BKC) 100 UNITS/ML SUB-Q ×3 (08:56→16:36)
[2023-03-20] MEDS: INSULIN GLARGINE (*BKC) 100 UNITS/ML SUB-Q (08:56)
[2023-03-20] MEDS: polyethylene glycoL 3350 17 GM POWD.PACK PO (09:03)
[2023-03-20] MEDS: FINASTERIDE 5 MG TABLET PO (09:03)
[2023-03-20] MEDS: MONTELUKAST SODIUM 10 MG TABLET PO (09:03)
[2023-03-20] MEDS: PRAVASTATIN SODIUM 20 MG TABLET 40 MG PO (09:03)
[2023-03-20] MEDS: ASPIRIN 81 MG CHEWABLE TABLET PO (09:03)
[2023-03-20] MEDS: PREGABALIN (*CRX) 75 MG CAPSULE 150 MG PO (09:03)
[2023-03-20] MEDS: TAMSULOSIN HCL 0.4 MG CAPSULE PO (09:03)
[2023-03-20] MEDS: metFORMIN HCL XR 500 MG TAB.SR.24H 2000 MG PO (09:03)
[2023-03-20] MEDS: EMPAGLIFLOZIN 25 MG TABLET PO (09:04)
[2023-03-20] MEDS: DIGOXIN 250 MCG TABLET PO (09:04)
[2023-03-20] MEDS: PANTOPRAZOLE SODIUM IV 40 MG VIAL IV PUSH ×2 (09:04→19:46)
[2023-03-20] MEDS: CALCIUM GLUC 2,000 MG/NS 100ML 2,000 MG/100 ML BAG 100 MG IVPB (09:12)
[2023-03-20] MEDS: MAGNESIUM SULF 2 GM/WATER 50ML 2 GM/50 ML BAG IVPB (09:12)
[2023-03-20] MEDS: SOD HYPOCHLORITE 1/4 STRENGTH 473 ML 1 APPLIC TOPICAL ×2 (09:13→21:38)
[2023-03-20 09:15] LABS: Creatine Kinase 62 U/L (55-170)
[2023-03-20] MEDS: MEROPENEM 1 GM in SODIUM CHLORIDE 0.9% IV 100 ML 200 ML IVPB ×2 (09:28→19:49)
[2023-03-20 09:36] LABS: Lactic Acid 2.3 mmol/L (0.7-2.0)
[2023-03-20] MEDS: NOREPINEPHRINE 8 MG/D5W 250 ML 8 MG/250 ML BAG 33.75 MG IV CONT (09:39)
--- NOTE | 2023-03-20 10:05 | PM.PNCARD ---
Progress Note: A&P Assessment and Plan (1) Atrial fibrillation with rapid ventricular response: Code(s): I48.91 - Unspecified atrial fibrillation Status: Acute Assessment and Plan: Paroxysmal atrial fibrillation, recurrent atrial fibrillation with RVR during this hospitalization. Pursuing rate control strategy. On metoprolol Continue Amiodarone drip due to RVR. Digoxin added also Continue systemic a/c with Eliquis 5mg BID Obviously rate control strategy is not working but some of the difficulty in controlling his heart rate is his underlying infection.. He is on amiodarone drip, metoprolol as well as digoxin and heart rate is still in the 110s to 120s. He will likely need a repeat cardioversion next week with anesthesia. (2) Hypokalemia: Code(s): E87.6 - Hypokalemia Status: Acute Assessment and Plan: Replaced (3) Chronic anticoagulation: Code(s): Z79.01 - detention (current) use of anticoagulants Status: Acute Assessment and Plan: Continue Eliquis (4) Septic shock: Code(s): A41.9 - Sepsis, unspecified organism; R65.21 - Severe sepsis with septic shock Status: Acute Assessment and Plan: In ICU, on antibiotics and pressors. Wean pressors as able Subjective Date/time seen: 03/20/23 10:05 Interval history: Reason for visit: Atrial fibrillation with RVR 73 year old male with coronary artery disease and paroxysmal atrial fibrillation.? Patient was hospitalized here for a number of days now with problems with sepsis, UTI, sacral decubitus.? Asked to sign back on the patient's case because of AF with RVR.? He is completely asymptomatic of this arrhythmia.? Started on intravenous amiodarone per the hospitalist service Date of service 03/14/2023: No complaints this morning.? He remains in atrial fibrillation with rate typically between 100-120bpm.? He is asymptomatic.? Remains on amiodarone drip. Date of service 03/15/2023: Heart rate remains not well controlled.? However, he is still asymptomatic.? He does not have any chest pain, shortness of breath, or palpitations.? Date of service 03/16: Still with intermittent RVR. Patient was hyoptensive this morning, Metoprolol could not be given due to SBP in the 70s. Date of service 03/17: Yesterday afternoon, Amiodarone drip was weaned off, however later he went back into RVR and was given a dose of Digoxin IV overnight and then later on an Amiodarone bolus. HR in the 130s this morning but patient remains asymptomatic from it and is comfortably sleeping. Date of service 03/19/2023: Heart rate is still elevated despite high-dose metoprolol, amiodarone and digoxin. He denies any chest pain or shortness of breath Date of service 03/20/2023: Transfer to the ICU yesterday because of altered mental status and lethargy. He denies any chest pain or shortness of breath. Heart rate is still elevated but a bit better controlled Review of Systems Review of Systems: Denies chest pain, palpitations, shortness of breath All systems reviewed & are unremarkable except as noted in HPI and below (HPI) Constitutional: Constitutional: Denies fever(s) Eyes: Eyes: Reports no additional eye complaints ENT: Denies epistaxis Cardiovascular: Cardiovascular: Denies chest pain, Denies pedal edema, Denies lightheadedness and Denies dyspnea Respiratory: Respiratory: Denies chest congestion and Denies dyspnea Gastrointestinal: Gastrointestinal: Denies abdominal pain and Denies hematochezia Musculoskeletal: Musculoskeletal: Reports no additional musculoskeletal complaints (The other than his sacral decubitus) Integumentary/Breasts: Skin/Breast: Reports system reviewed and no additional complaints, except as docu Neurologic: Reports system reviewed and no additional complaints, except as documented, Denies behavioral changes and Denies confusion Psychiatric: Psychiatric: Denies behavioral changes and Denies confusio
[2023-03-20 10:16] LABS: Creatinine Urine 19.7 mg/dL
[2023-03-20 10:32] LABS: Appearance Urine Turbid (Clear); Bacteria Urine None Seen /hpf; Bilirubin Urine Negative (Negative); Blood Urine 3+ (Negative); Color Urine Yellow (Yellow); Glucose Urine UA 3+ mg/dL (Negative); Ketones Urine Negative (Negative); Leukocyte Esterase Ur 3+ LEU/UL (Negative); Need Manual Microscopic Reviewed; Nitrate Urine Negative (Negative); Protein Urine 1+ mg/dL (Negative); RBC Urine >100 /hpf (0-2); Specific Grav Ur 1.021 (1.001-1.035); Squamous Epithelial Cell Urine Occasional /hpf (Few); Urobilinogen Urine 0.2 mg/dL (<2.0); WBC Urine >100 /hpf; pH Urine 5.5 (5.0-9.0)
[2023-03-20 10:33] LABS: Sodium Urine Random 35 meq/L
[2023-03-20 10:33] LABS: Add Urine Microscopic? YES
[2023-03-20 11:38] LABS: Eosinophil Urine 1 % (None Seen); Urine Eos QC 2nd Tech Confirmed
[2023-03-20 11:47] LABS: Glucose Point of Care 275 mg/dl (65-105)
[2023-03-20] MEDS: AMIODARONE 360 MG/D5W 200 ML 360 MG/200 ML BAG 33.33 MG IV CONT ×3 (11:54→23:15)
--- NOTE | 2023-03-20 12:42 | WPDPN ---
Progress Note: A&P Assessment and Plan (1) Septic shock: Code(s): A41.9 - Sepsis, unspecified organism; R65.21 - Severe sepsis with septic shock Status: Acute Assessment and Plan: Resolved (2) Acute pyelitis: Code(s): N10 - Acute pyelonephritis Status: Acute Assessment and Plan: Continue Omnicef. Last day March 18, 2023. (3) Hydronephrosis: Code(s): N13.30 - Unspecified hydronephrosis Status: Acute Assessment and Plan: Appreciate urology evaluation recommendation, continue tamsulosin and oxybutynin. And finasteride. -urinary catheter was placed per Urology for urinary retention Will likely need follow-up with Urology as an outpatient for management of Whyte (4) Acute renal insufficiency: Code(s): N28.9 - Disorder of kidney and ureter, unspecified Status: Acute Assessment and Plan: Monitor kidney function. Monitor electrolytes. (5) Anemia: Qualifiers: Anemia type: unspecified type Qualified Code(s): D64.9 - Anemia, unspecified Code(s): D64.9 - Anemia, unspecified Status: Acute Assessment and Plan: Likely anemia of chronic disease. (6) Atrial fibrillation with RVR: Code(s): I48.91 - Unspecified atrial fibrillation Status: Acute Assessment and Plan: On IV amiodarone. Continue anticoagulation. Transitioning to oral metoprolol. Appreciate cardiology input. 03/20/2023 interval history, 73-year-old male with a atrial fibrillation RVR seen by cardiology being treated with amiodarone drip and metoprolol was added however patient blood pressure was soft unable to tolerate metoprolol held the medication, patient was seen by Cardiology digoxin was added HR is trending down and blood pressure is improving, patient has significant sacral decubital ulcers and necrosis, was seen by surgery service, patient will need surgical debridement however patient is not a good candidate for the surgery, once cardiac issues have stabilized may consider surgical interventon, on 03/19 patient remained clinically stable however he had developed fever and more somnolent, suspect patient has again developed sepsis from his wound, will collect blood culture and wound culture start the patient, ceftriaxone, 2 g q.day, Flagyl 500 mg q.8 and vancomycin per pharmacy later in the evening patient was transferred to ICU as patient was hypotensive and started on levophed, ct scan abdomen is suspicious pyelonephritis, and now patient is being treated with Meropenem, flagyl and vancomcin, seen by profile stitching machine operator and will monitor patient will be seen covering machine operator and further recommendation to follow. (7) Diabetes mellitus type 2, uncontrolled: Status: Acute Assessment and Plan: Monitor blood sugar (8) Hypertension: Code(s): I10 - Essential (primary) hypertension Status: Acute Assessment and Plan: Monitor (9) Decubitus ulcer: Code(s): L89.90 - Pressure ulcer of unspecified site, unspecified stage Status: Acute Assessment and Plan: Wound care following the patient Subjective Date/time seen: 03/20/23 12:42 Interval history: On IV amiodarone. Continue anticoagulation. Transitioning to oral metoprolol. Appreciate cardiology input. 03/20/2023 interval history, 73-year-old male with a atrial fibrillation RVR seen by cardiology being treated with amiodarone drip and metoprolol was added however patient blood pressure was soft unable to tolerate metoprolol held the medication, patient was seen by Cardiology digoxin was added HR is trending down and blood pressure is improving, patient has significant sacral decubital ulcers and necrosis, was seen by surgery service, patient will need surgical debridement however patient is not a good candidate for the surgery, once cardiac issues have stabilized may consider surgical interventon, on 03/19 patient remained clinically stable however he had developed fever
--- NOTE | 2023-03-20 13:30 | PM.PNGS ---
Subjective Subjective Date/Time Seen: 03/20/23 13:30 Interval history: Patient transferred to the intensive care unit due to fever and her relative hypotension. He appears to be septic. Urine is very cloudy and UA reveals UTI so he may have urosepsis. In addition he has continued tissue water foul-smelling drainage from his sacral decubitus wound. His heart rate is under better control but still some episodes of rapid ventricular response with his AFib. He is alert oriented in the intensive care unit however. He has been tolerating diet. Exam Skin: Other: The sacral decubitus wound has a large area of necrotic tissue in the central portion measuring at least 5 to 6 cm in diameter. At the present time is on known whether extends all the way down to the bone and fascia. This could be a contributing cause to his sepsis and so long as he is medically stable enough to go to an operating room and received an anesthetic I think he should be taken for surgery debridement of the sacral decubitus wound possibly tomorrow. Make him NPO at 6:00 a.m. case we taken to the operating room. Objective Data Vital Signs Vital Signs: Vital Signs - 24 hr 03/19/23 14:00 03/19/23 16:00 03/19/23 16:00 Temperature 38.1 C H Pulse Rate 154 H 152 H 141 H Respiratory Rate 18 Blood Pressure 95/44 L Pulse Oximetry 97 Oxygen Delivery 03/19/23 18:00 03/19/23 20:04 03/19/23 20:38 Temperature 37.5 C Pulse Rate 166 H 162 H 165 H Respiratory Rate 16 Blood Pressure 91/40 L Pulse Oximetry 91 Oxygen Delivery 03/19/23 20:00 03/19/23 20:00 03/19/23 22:00 Temperature Pulse Rate 151 H 136 H Respiratory Rate Blood Pressure Pulse Oximetry 91 Oxygen Delivery Room Air 03/19/23 23:15 03/19/23 23:45 03/20/23 00:15 Temperature 37.7 C H 37.7 C H Pulse Rate 151 H 148 H 126 H Respiratory Rate 18 18 26 H Blood Pressure 72/36 L 74/33 L 85/43 L Pulse Oximetry 93 97 96 Oxygen Delivery 03/20/23 00:27 03/20/23 01:10 03/20/23 01:30 Temperature Pulse Rate 130 H 114 H Respiratory Rate 26 H 18 28 H Blood Pressure 83/40 L 73/39 L 71/36 L Pulse Oximetry 96 97 100 Oxygen Delivery 03/20/23 00:00 03/20/23 02:00 03/20/23 02:48 Temperature Pulse Rate 126 H 128 H 113 H Respiratory Rate Blood Pressure 52/40 L Pulse Oximetry Oxygen Delivery 03/20/23 03:04 03/20/23 03:32 03/20/23 04:00 Temperature Pulse Rate Respiratory Rate Blood Pressure 120/64 113/63 Pulse Oximetry Oxygen Delivery Room Air 03/20/23 04:00 03/20/23 00:00 03/20/23 04:00 Temperature 37.2 C Pulse Rate 114 H 118 H Respiratory Rate 21 H Blood Pressure 107/48 L Pulse Oximetry 96 98 Oxygen Delivery Room Air 03/20/23 05:48 03/20/23 05:59 03/20/23 06:00 Temperature Pulse Rate 124 H 119 H 129 H Respiratory Rate Blood Pressure 102/44 L 102/44 L Pulse Oximetry Oxygen Delivery 03/20/23 09:04 03/20/23 08:00 03/20/23 08:00 Temperature Pulse Rate 111 H 111 H 111 H Respiratory Rate Blood Pressure 127/85 127/85 Pulse Oximetry Oxygen Delivery 03/20/23 09:39 03/20/23 08:00 03/20/23 11:26 Temperature Pulse Rate 116 H 127 H 110 H Respiratory Rate Blood Pressure 107/52 L 107/57 L Pulse Oximetry Oxygen Delivery 03/20/23 08:00 03/20/23 10:00 03/20/23 10:00 Temperature 37.3 C Pulse Rate 123 H 115 H 115 H Respiratory Rate 26 H 25 H Blood Pressure 127/85 104/61 Pulse Oximetry 98 96 Oxygen Delivery 03/20/23 11:49 03/20/23 11:54 03/20/23 11:54 Temperature Pulse Rate 112 H 117 H 117 H Respiratory Rate Blood Pressure 109/58 L 109/58 L 109/58 L Pulse Oximetry Oxygen Delivery 03/20/23 12:10 03/20/23 12:00 03/20/23 12:19 Temperature Pulse Rate 99 113 H 115 H Respiratory Rate Blood Pressure 110/57 L 115/53 L Pulse Oximetry Oxygen Delivery 03/20/23 12:39 03/20/23 12:00 03/20/23 13
--- NOTE | 2023-03-20 14:20 | PCOTNOTE ---
Per nursing, pt. currently hypotensive and should not participate in therapy for the day. Per nursing, pt to have I and D procedure tomorrow. Pt. will likely be re-evaluated for therapy services s/p
[2023-03-20 16:32] LABS: Glucose Point of Care 240 mg/dl (65-105)
[2023-03-20] MEDS: NOREPINEPHRINE 8 MG/D5W 250 ML 8 MG/250 ML BAG 15 MG IV CONT (17:44)
[2023-03-20] MEDS: INSULIN GLARGINE (*BKC) 100 UNITS/ML 15 UNITS SUB-Q (19:47)
[2023-03-20 20:05] LABS: Glucose Point of Care 258 mg/dl (65-105)
[2023-03-20 21:37] LABS: Immunochemical Fecal Occult Bl Negative (N)
[2023-03-20 21:38] LABS: IFOB Positive Control Positive
[2023-03-21] VITALS (27 sets, daily range): BP systolic 80–113; BP diastolic 47–64; PULSE 90–128; RESP 17–24; TEMP 36.4–37.1; O2SAT 94–98
[2023-03-21] MEDS: SODIUM BICARBONATE 8.4% 150 MEQ in WATER, STERILE FOR INJECTION 950 ML 100 MEQ IV CONT (03:44)
[2023-03-21] MEDS: metroNIDAZOLE 500 MG/ISO 100ML 500 MG/100 ML BAG 100 MG IVPB (05:07)
[2023-03-21] MEDS: CENTRAL LINE FLUSH 10 ML IV PUSH ×2 (05:07→22:07)
[2023-03-21] MEDS: AMIODARONE 360 MG/D5W 200 ML 360 MG/200 ML BAG 33.33 MG IV CONT ×4 (05:09→23:37)
[2023-03-21 06:58] LABS: Basophils Percent Auto 0.2 % (0.2-1.2); Eosinophils Absolute Auto 0.1 K/mm3 (0-0.3); Eosinophils Percent Auto 0.4 % (0-4.4); Hematocrit 27.5 % (42.0-52.0); Hemoglobin 8.4 g/dL (14.0-18.0); Immature Granulocyte Absolute 0.14 K/mm3 (0.00-0.031); Immature Granulocyte Percent A 1.1 % (0-0.5); Lymphocytes Absolute Auto 0.84 K/mm3 (0.9-3.2); Lymphocytes Percent Auto 6.7 % (18.3-44.2); Mean Corpuscular HGB Conc 30.5 g/dl (32-36); Mean Corpuscular Hemoglobin 24.2 pg (26-34); Mean Corpuscular Volume 79.3 fl (80-100); Mean Platelet Volume 10.3 fl (7.4-10.4); Monocytes Absolute Auto 0.5 K/mm3 (0.1-0.6); Monocytes Percent Auto 3.7 % (2.6-8.5); Neutrophils Percent Auto 87.9 % (45.5-73.1); Platelet Count Result 286 k/mm3 (150-375); Red Blood Count 3.47 M/mm3 (4.6-6.20); Red Cell Distribution Width 18.2 % (11.5-14.5); White Blood Count 12.5 K/mm3 (4.5-10.0)
[2023-03-21 07:16] LABS: Alanine Aminotransferase 13 U/L (6-50); Albumin Level 1.9 g/dL (3.5-5.1); Alkaline Phosphatase 116 U/L (38-126); Anion Gap 5 mmol/L (8-16); Aspartate Amino Transferase 19 U/L (17-59); Bilirubin,Total 0.3 mg/dL (0.2-1.3); Blood Urea Nitrogen 36 mg/dL (9-20); Calcium 6.8 mg/dL (8.4-10.2); Carbon Dioxide 28 mmol/L (22-30); Chloride 99 mmol/L (98-107); Estimated CRCL calculation 92 ml/min; Estimated Glomerular Filt Rate > 60; Glucose 194 mg/dL (65-110); Phosphorus 2.6 mg/dL (2.5-4.5); Sodium 132 mmol/L (137-145)
--- NOTE | 2023-03-21 08:00 | PCPTNOTE ---
Pt to have I & D today. Will re-evaluate pt when medically appropriate. Will follow.
[2023-03-21] MEDS: NOREPINEPHRINE 8 MG/D5W 250 ML 8 MG/250 ML BAG 11.25 MG IV CONT (08:19)
[2023-03-21 09:55] LABS: Reflex Lactic Acid Yes or No Add Lactic
--- NOTE | 2023-03-21 10:03 | PM.PNGS ---
Progress Note: A&P Assessment and Plan (1) Decubitus ulcer: Code(s): L89.90 - Pressure ulcer of unspecified site, unspecified stage Status: Acute Assessment and Plan: Patient remains intensive care unit with sepsis. He does have a UTI and he may be mostly septic from his urinary tract source. However he has a large necrotic decubitus ulcer on his sacrum and the could also be contributing to his sepsis. I discussed with tutoring assistant today and he feels that the patient is stable enough to go to the operating room for a debridement of the decubitus ulcer. We will plan on adding the patient on to the schedule today for the debridement. Subjective Subjective Date/Time Seen: 03/21/23 10:03 Interval history: Patient remained stable in the intensive care unit. Low-dose of Levophed ongoing. Heart rate has been in the low 100s. Currently NPO. Exam Skin: Other: Large deep decubitus wound with central necrotic tissue and cellulitis. Objective Data Vital Signs Vital Signs: Vital Signs - 24 hr 03/20/23 11:26 03/20/23 11:49 03/20/23 11:54 Temperature Pulse Rate 110 H 112 H 117 H Respiratory Rate Blood Pressure 107/57 L 109/58 L 109/58 L Pulse Oximetry Oxygen Delivery Fraction of Inspired Oxygen 03/20/23 11:54 03/20/23 12:10 03/20/23 12:00 Temperature Pulse Rate 117 H 99 113 H Respiratory Rate Blood Pressure 109/58 L 110/57 L Pulse Oximetry Oxygen Delivery Fraction of Inspired Oxygen 03/20/23 12:19 03/20/23 12:39 03/20/23 12:00 Temperature 36.7 C Pulse Rate 115 H 102 H 123 H Respiratory Rate 22 H Blood Pressure 115/53 L 115/54 L 110/57 L Pulse Oximetry 98 Oxygen Delivery Fraction of Inspired Oxygen 03/20/23 13:24 03/20/23 13:25 03/20/23 13:49 Temperature Pulse Rate 99 99 98 Respiratory Rate Blood Pressure 105/59 L 105/59 L 106/53 L Pulse Oximetry Oxygen Delivery Fraction of Inspired Oxygen 03/20/23 14:00 03/20/23 14:00 03/20/23 14:02 Temperature Pulse Rate 109 H 109 H 97 Respiratory Rate 20 Blood Pressure 102/61 102/61 Pulse Oximetry 96 Oxygen Delivery Fraction of Inspired Oxygen 03/20/23 16:00 03/20/23 16:00 03/20/23 16:00 Temperature 36.8 C Pulse Rate 106 H 115 H Respiratory Rate 21 H Blood Pressure 98/53 L Pulse Oximetry 97 Oxygen Delivery Room Air Fraction of Inspired Oxygen 03/20/23 16:43 03/20/23 16:44 03/20/23 17:03 Temperature Pulse Rate 106 H 106 H 114 H Respiratory Rate Blood Pressure 97/51 L 97/51 L 111/65 Pulse Oximetry Oxygen Delivery Fraction of Inspired Oxygen 03/20/23 17:44 03/20/23 17:45 03/20/23 18:00 Temperature Pulse Rate 118 H 118 H 108 H Respiratory Rate Blood Pressure 109/52 L 109/52 L Pulse Oximetry Oxygen Delivery Fraction of Inspired Oxygen 03/20/23 18:00 03/20/23 18:49 03/20/23 19:56 Temperature Pulse Rate 114 H 123 H 114 H Respiratory Rate 21 H Blood Pressure 101/55 L 110/56 L 102/59 L Pulse Oximetry 98 Oxygen Delivery Fraction of Inspired Oxygen 03/20/23 19:57 03/20/23 20:00 03/20/23 20:00 Temperature 36.8 C Pulse Rate 117 H 118 H 118 H Respiratory Rate 23 H 23 H Blood Pressure 102/59 L 124/87 Pulse Oximetry 96 96 Oxygen Delivery Room Air Fraction of Inspired Oxygen 03/20/23 20:00 03/20/23 21:32 03/20/23 21:41 Temperature Pulse Rate 108 H 111 H 123 H Respiratory Rate Blood Pressure 88/46 L 92/46 L Pulse Oximetry Oxygen Delivery Fraction of Inspired Oxygen 03/20/23 22:00 03/20/23 22:00 03/20/23 23:15 Temperature Pulse Rate 116 H 116 H 111 H Respiratory Rate 18 Blood Pressure 100/52 L 102/45 L Pulse Oximetry 97 Oxygen Delivery Fraction of Inspired Oxygen 03/20/23 23:00 03/20/23 23:28 03/21/23 00:00 Temperature 36.4 C Pulse Rate 117 H 107 H 111 H Respiratory Rate 21 H Blood Pressure 100/47 L 102
[2023-03-21] MEDS: DIGOXIN 250 MCG TABLET PO (10:05)
[2023-03-21] MEDS: MONTELUKAST SODIUM 10 MG TABLET PO (10:05)
--- NOTE | 2023-03-21 10:07 | WPDHPUPDATE1 ---
History and Physical Update Update Date/Time: 03/21/23 10:07 History and Physical has been reviewed, including an updated exam of the patient. There are NO changes in the patient's condition. Risks, benefits, and alternatives have been discussed and questions answered. Patient agrees to proceed with procedure.
[2023-03-21] MEDS: SOD HYPOCHLORITE 1/4 STRENGTH 473 ML 1 APPLIC TOPICAL (10:11)
[2023-03-21] MEDS: PANTOPRAZOLE SODIUM IV 40 MG VIAL IV PUSH ×2 (10:11→22:06)
[2023-03-21] MEDS: SODIUM CHLORIDE 0.9% IV 1,000 ML 75 ML IV CONT (10:17)
[2023-03-21] MEDS: MEROPENEM 1 GM in SODIUM CHLORIDE 0.9% IV 100 ML 200 ML IVPB ×2 (10:18→18:25)
--- NOTE | 2023-03-21 10:43 | PCNFU ---
Nutrition Follow-Up Complete: Increased protein needs as related to wounds as evidenced by unstagable pressure ulcer reported. Adequate Intake of at least 75% of meals/supplements - NPO today for surgery. Intakes 0-90% on previous DBCCD. Continue with goal after diet advanced. Goal: Pt current nutrition is NPO for debridement of sacral wound. Nutrition recommendation: When diet is advanced, order diabetic consistent carb diet with Glucerna TID for additional 220 kcal and 10 g protein; and Reinier BID for additional 90 kcal and 2.5 g protein for wound healing Last recorded weight is 81.9 kg. + 9 lbs/2 weeks since admission Bowel Motility: + 1 BM 03/21/23 Labs Reviewed: Hgb 8.4, Hct 27.5, Alb 1.9, NA 132, K+ 3.0, BUN 36, Meds Noted: Eliquis, protonix Skin: Sacral wound Additional Notes: Pt getting debridement of sacral wound today. To resume diet and supplements afterward. Continue with same goals. Follow daily in ICU rounds. Will montior weight, labs, skin, oral intake every 7 days.
[2023-03-21 10:52] LABS: Lactic Acid 2.4 mmol/L (0.7-2.0)
[2023-03-21 12:11] LABS: Glucose Point of Care 190 mg/dl (65-105)
--- NOTE | 2023-03-21 12:48 | WPDINTPN ---
Progress Note: A&P Assessment and Plan (1) Septic shock: Code(s): A41.9 - Sepsis, unspecified organism; R65.21 - Severe sepsis with septic shock Status: Acute Assessment and Plan: 03/20/2023: Patient was transferred from the intermediate Unit after being found hypotensive despite 2.5 L of IV fluid bolus. PICC line was inserted and patient was started on Levophed. Patient has minimal urine output on 03/19 despite he drinking lot of fluids and receiving IV fluid bolus. Whyte was flushed, with return of purulent drainage in the urine tubing along with sediments. -wean Levophed to maintain MAP > 65 mmHg at all times propofol adequate end organ perfusion -source likely UTI/pyelonephritis, decubitus ulcer, possible cholecystitis as seen on the CT scan below -03/20 CT scan of the abdomen and pelvis showed 1. Bilateral hydronephrosis with urothelial enhancement, suspicious for ascending urinary tract infection and/or pyelonephritis. 2: Distended gallbladder with small amount of surrounding fluid. Cannot exclude cholecystitis. 3:? Right sacral decubitus ulcer. No evidence for osteomyelitis. 4:? Bibasilar airspace disease, most likely dependent atelectasis. Small pleural effusions -continue meropenem, vancomycin (03/20) -03/21: Discontinued Flagyl -lactic is 2.4 this morning -03/20 acute kidney injury with creatinine increased to 1.5 from 0.7 on 03/19. -creatinine has normalized -03/19: Blood cultures : No growth x2 so far -03/20: Wound culture showed a mix of organisms -03/20: Urine cultures pending 03/18: Urine cultures have been negative (2) Acute pyelitis: Code(s): N10 - Acute pyelonephritis Status: Acute Assessment and Plan: Treatment as above 03/20 renal ultrasound: Showed bilateral renal cysts, mild bilateral hydronephrosis (3) Hydronephrosis: Code(s): N13.30 - Unspecified hydronephrosis Status: Acute Assessment and Plan: Urology was following the patient, recommended to keep the Whyte catheter before voiding trial -will continue to flash Whyte at regular intervals (4) Acute renal insufficiency: Code(s): N28.9 - Disorder of kidney and ureter, unspecified Status: Acute Assessment and Plan: Patient with acute kidney injury with creatinine of 1.5 on 03/20 (from 0.7) -adequate fluid resuscitation -lactic acid trending down -patient on see Levophed, will maintain MAP > 65 mmHg for adequate end organ perfusion -continue to monitor renal function, electrolytes and urine output -03/21will discontinue sodium bicarb infusion and start normal saline maintenance IV fluids at 75 mL/hour (5) Anemia: Qualifiers: Anemia type: unspecified type Qualified Code(s): D64.9 - Anemia, unspecified Code(s): D64.9 - Anemia, unspecified Status: Acute Assessment and Plan: Folic acid and vitamin B12 within normal limit -iron panel showed decreased iron levels, TIBC and% saturation. MCV is normal, likely anemia of chronic disease -stool for Hemoccult is negative -hemoglobin has been stable (6) Atrial fibrillation with RVR: Code(s): I48.91 - Unspecified atrial fibrillation Status: Acute Assessment and Plan: Patient with AFib RVR status post cardioversion x2 on admission on 03/08/2022 -patient was placed on metoprolol, digoxin and p.o. amiodarone by Cardiology -in the intermediate Unit patient remained AFib RVR and amiodarone infusion was started -patient now in shock, holding metoprolol -continue digoxin -03/20: I asked the bedside RN to increase the amiodarone to 1 mg/min infusion -cardiology following the patient -patient on Eliquis which I have currently held since patient may need debridement of his decubitus/pressure ulcer -will start patient on therapeutic Lovenox 1mg/kg subQ q.12 hours which is currently on hold today for the debridement of the pressure ulcer (7) Diabetes mellitus type 2, uncontrolled: Status:
[2023-03-21] MEDS: KCL 40 MEQ/WATER 100 ML 100 ML 25 ML IVPB (13:44)
[2023-03-21] MEDS: POTASSIUM CHLORIDE 20 MEQ ER TABLET 40 MEQ PO (13:44)
--- NOTE | 2023-03-21 14:44 | WPDANESEPPF ---
Anes - Initial Pre Proc Eval Procedure: Operation Date: 03/21/23 14:30 Proposed Procedures p Debridement Sacral Decubitus Wound,Placement Of Wound Vac - Rian Mendoza MD Date/Time: 03/21/23 14:44 Surgeon: Sima Estes MD Pre Op Diagnosis: Septic Shock,UTI/Pyelitis,AFIB w/RVR,ANTONY,Decub Ulc Patient Data Age: 73 Gender: M Height: 1.83 m Weight: 81.9 kg Last Vital Signs Temp 37.1 C 03/21/23 12:00 Pulse 105 H 03/21/23 12:00 Resp 17 03/21/23 12:00 BP 102/57 L 03/21/23 12:00 Pulse Ox 97 03/21/23 12:00 O2 Del Method Room Air 03/21/23 12:00 FiO2 98 03/21/23 08:00 Allergies Allergy/AdvReac Type Severity Reaction Status Date / Time No Known Allergies Allergy Verified 03/08/23 17:07 Home Medications Medication Instructions Recorded Confirmed Type montelukast 10 mg tablet 10 mg PO DAILY 05/11/21 03/08/23 History tamsulosin 0.4 mg capsule 0.4 mg PO QAM #30 caps 09/03/22 03/09/23 Rx acetaminophen 325 mg tablet (Mapap 650 mg PO Q6H PRN Mild Pain (1-3) 09/17/22 03/09/23 Rx (acetaminophen)) Or Fever #30 tabs apixaban 5 mg tablet (Eliquis) 5 mg PO BID #60 tabs 09/17/22 03/08/23 Rx aspirin 81 mg chewable tablet 81 mg PO DAILY@0800 #30 tabs 09/17/22 03/09/23 Rx (Children's Aspirin) oxycodone-acetaminophen 5 mg-325 1 tablet PO Q6H PRN Pain Rated 09/17/22 03/08/23 Rx mg tablet 7-10 #28 tabs pregabalin 75 mg capsule (Lyrica) 150 mg PO DAILY #30 caps 09/17/22 03/08/23 Rx pravastatin 40 mg tablet 40 mg PO DAILY 09/20/22 03/08/23 History sitagliptin phos 50 mg-metformin 2 tablet PO DAILY 09/20/22 03/08/23 History ER 1,000 mg tablet,extend rel 24h mp (Janumet XR) collagenase clostridium histo. 250 1 applic topical DAILY 03/08/23 03/08/23 History unit/gram topical ointment (Santyl) empagliflozin 25 mg tablet 25 mg PO DAILY 03/08/23 03/08/23 History (Jardiance) metoprolol tartrate 100 mg tablet 100 mg PO BID 03/08/23 03/08/23 History mupirocin 2 % topical ointment 1 applic topical DAILY 03/08/23 03/08/23 History omeprazole 20 mg capsule,delayed 20 mg PO DAILY 03/08/23 03/08/23 History release oxybutynin chloride 5 mg tablet 5 mg PO BID 03/08/23 03/08/23 History ergocalciferol (vitamin D2) 1,250 1,250 mcg PO WEEKLY 03/09/23 03/09/23 History mcg (50,000 unit) capsule icosapent ethyl 1 gram capsule 4 g PO DAILY 03/09/23 03/09/23 History (Vascepa) valsartan 320 0.5 tablet PO DAILY 03/09/23 03/09/23 History mg-hydrochlorothiazide 25 mg tablet Laboratory Tests 03/20/23 03/20/23 03/20/23 16:30 19:45 20:56 WBC RBC Hgb Hct MCV MCH MCHC RDW Plt Count MPV Immature Gran % (Auto) Neut % (Auto) Lymph % (Auto) Sevier % (Auto) Eos % (Auto) Baso % (Auto) Lymph # (Auto) Sevier # (Auto) Eos # (Auto) Baso # (Auto) Abs Immat Gran (auto) Absolute Neuts (auto) Absolute Nucleated RBC Nucleated RBC % Sodium Potassium Chloride Carbon Dioxide Anion Gap BUN Creatinine Estim Creat Clear Calc Estimated GFR Glucose POC Capillary Glucose 240 H mg/dl 258 H mg/dl (65-105) (65-105) Lactic Acid Calcium Phosphorus Total Bilirubin AST ALT Alkaline Phosphatase Total Protein Albumin Stl Occult Blood (IFOB) Negative (N) 03/21/23 03/21/23 03/21/23 06:50 10:25 12:09 WBC 12.5 H K/mm3 (4.5-10.0) RBC 3.47 L M/mm3 (4.6-6.20) Hgb 8.4 L g/dL (14.0-18.0) Hct 27.5 L % (42.0-52.0) MCV 79.3 L fl
--- NOTE | 2023-03-21 15:59 | W.PM.PROC2 ---
Procedure Note - Detailed Date of Procedure 03/21/23 Pre-op Diagnosis Septic Shock,UTI/Pyelitis,AFIB w/RVR,ANTONY,Decub Ulc Post-op Diagnosis Same Procedure Performed Sharp scissor and scalpel debridement of sacral decubitus ulcer with placement of wound VAC. Surgeon Rian Mendoza MD Anesthesia General Indications Patient is a 83-year-old gentleman [place] who is bed ridden. He has urosepsis and also has a large necrotic sacral decubitus ulcer. He is now stabilized quickly to the point that he can be taken to the operating for an anesthetic and presents for debridement of the sacral decubitus ulcer. Findings Necrotic skin subcutaneous tissue and fascia were all noted within the wound. Periosteal tissue and bone was exposed. This was a stage IV decubitus ulcer. There is no obvious erosion of the sacral bone itself. Resulting size the wound after debridement was 9cm in length by 6cm width by at maximum 2cm in depth. There was 4cm of lateral tunneling. Description of Procedure After informed consent was obtained patient brought to the operating room was placed in the left lateral decubitus position on the operating table under general endotracheal anesthesia. The area the sacrum was then prepped and draped in usual sterile fashion. Time-out was then performed correctly identifying the patient as well as procedure to be performed. He was already on scheduled IV antibiotics. I started to sharply debride the wound with a combination of sharp scalpel and sharp scissor dissection. All the nonviable tissue was removed all the way down to the periosteum of the underlying sacrum. A portion of the necrotic tissue was sent to microbiology for tissue culture. There was tunneling laterally of the wound for about 4cm going towards the posterior portion of the right hip joint. The joint was not exposed. There was about 5 to 6 cm viable skin between the inferior portion of the sacral decubitus wound and the perianal verge. Once I had all the necrotic tissue excised I then irrigated out the wound with sterile saline solution. There was bleeding from most of the raw tissue edges. I then used electrocautery to achieve hemostasis. I then proceeded to place a piece of black foam for the wound VAC into the wound as well as the tunnel. It was then wrapped around the patient's right hip so that the suction isaiah pad placed on the hip instead of the back. Once all of the occlusive dressings were placed I then hooked up the wound VAC and placed on 125mm of mercury suction. We achieved a good seal to the wound VAC. the area was then cleaned and then the patient was taken directly back to the intensive care unit in stable condition. The patient tolerated the procedure well no complications. All sponge needles and instrument counts were correct at the end the procedure. Estimated left blood loss procedure was 50cc. Patient was awakened extubated and taken back to the intensive care unit in stable condition. Implants Wound VAC on sacrum Estimated Blood Loss 50 Urine Output 1,200 Drains No Packing Yes (Wound VAC) Pathology Other (Necrotic tissue to microbiology for tissue culture) Complications No immediate complications Condition Stable Disposition ICU [facility] Billing Surgery - Charge Forward: Surgery Billing
--- NOTE | 2023-03-21 16:52 | WPDPN ---
Progress Note: A&P Assessment and Plan (1) Septic shock: Code(s): A41.9 - Sepsis, unspecified organism; R65.21 - Severe sepsis with septic shock Status: Acute Assessment and Plan: Resolved (2) Acute pyelitis: Code(s): N10 - Acute pyelonephritis Status: Acute Assessment and Plan: Continue Omnicef. Last day March 18, 2023. (3) Hydronephrosis: Code(s): N13.30 - Unspecified hydronephrosis Status: Acute Assessment and Plan: Appreciate urology evaluation recommendation, continue tamsulosin and oxybutynin. And finasteride. -urinary catheter was placed per Urology for urinary retention Will likely need follow-up with Urology as an outpatient for management of Whyte (4) Acute renal insufficiency: Code(s): N28.9 - Disorder of kidney and ureter, unspecified Status: Acute Assessment and Plan: Monitor kidney function. Monitor electrolytes. (5) Anemia: Qualifiers: Anemia type: unspecified type Qualified Code(s): D64.9 - Anemia, unspecified Code(s): D64.9 - Anemia, unspecified Status: Acute Assessment and Plan: Likely anemia of chronic disease. (6) Atrial fibrillation with RVR: Code(s): I48.91 - Unspecified atrial fibrillation Status: Acute Assessment and Plan: On IV amiodarone. Continue anticoagulation. Transitioning to oral metoprolol. Appreciate cardiology input. 03/21/2023 interval history, 73-year-old male with a atrial fibrillation RVR seen by cardiology being treated with amiodarone drip and metoprolol was added however patient blood pressure was soft unable to tolerate metoprolol held the medication, patient was seen by Cardiology digoxin was added HR is trending down and blood pressure is improving, patient has significant sacral decubital ulcers and necrosis, was seen by surgery service, patient will need surgical debridement however patient is not a good candidate for the surgery, once cardiac issues have stabilized may consider surgical interventon, on 03/19 patient remained clinically stable however he had developed fever and more somnolent, suspect patient has again developed sepsis from his wound, will collect blood culture and wound culture start the patient, ceftriaxone, 2 g q.day, Flagyl 500 mg q.8 and vancomycin per pharmacy later in the evening patient was transferred to ICU as patient was hypotensive and started on levophed, ct scan abdomen is suspicious pyelonephritis, and now patient is being treated with Meropenem, flagyl and vancomcin, urine and blood culture no growth so far, patient seen by surgery service recommended debridement of the wound scheduled for today, seen by retail pos specialist and will monitor patient will be seen cook helper pastry and further recommendation to follow. (7) Diabetes mellitus type 2, uncontrolled: Status: Acute Assessment and Plan: Monitor blood sugar (8) Hypertension: Code(s): I10 - Essential (primary) hypertension Status: Acute Assessment and Plan: Monitor (9) Decubitus ulcer: Code(s): L89.90 - Pressure ulcer of unspecified site, unspecified stage Status: Acute Assessment and Plan: Wound care following the patient Subjective Date/time seen: 03/21/23 16:52 Interval history: 03/21/2023 interval history, 73-year-old male with a atrial fibrillation RVR seen by cardiology being treated with amiodarone drip and metoprolol was added however patient blood pressure was soft unable to tolerate metoprolol held the medication, patient was seen by Cardiology digoxin was added HR is trending down and blood pressure is improving, patient has significant sacral decubital ulcers and necrosis, was seen by surgery service, patient will need surgical debridement however patient is not a good candidate for the surgery, once cardiac issues have stabilized may consider surgical interventon, on 03/19 patient remained clinically stable however
[2023-03-21 17:00] LABS: Glucose Point of Care 178 mg/dl (65-105)
[2023-03-21] MEDS: INSULIN GLARGINE (*BKC) 100 UNITS/ML 15 UNITS SUB-Q (22:07)
[2023-03-21 22:21] LABS: Glucose Point of Care 163 mg/dl (65-105)
[2023-03-21] MEDS: oxyCODONE/ACETAMINOPHEN (*CRX) 5-325 MG TABLET 1 TABLET PO (22:22)
[2023-03-21 23:05] LABS: Vancomycin Trough 10.7 ug/mL (10.0-20.0)
[2023-03-22] VITALS (23 sets, daily range): BP systolic 76–111; BP diastolic 44–61; PULSE 92–123; RESP 18–24; TEMP 36.6–37; O2SAT 95–98
[2023-03-22] MEDS: VANCOMYCIN 1,250 MG/NS 250 ML 1,250 MG/250 ML BAG 166.67 MG IVPB ×2 (00:23→12:12)
[2023-03-22] MEDS: SODIUM CHLORIDE 0.9% IV 1,000 ML 75 ML IV CONT ×2 (02:38→17:06)
[2023-03-22] MEDS: MEROPENEM 1 GM in SODIUM CHLORIDE 0.9% IV 100 ML 200 ML IVPB ×3 (02:39→18:04)
[2023-03-22 04:50] LABS: Hematocrit 27.8 % (42.0-52.0); Hemoglobin 8.1 g/dL (14.0-18.0); Mean Corpuscular HGB Conc 29.1 g/dl (32-36); Mean Corpuscular Hemoglobin 23.8 pg (26-34); Mean Corpuscular Volume 81.5 fl (80-100); Mean Platelet Volume 10.7 fl (7.4-10.4); Platelet Count Result 282 k/mm3 (150-375); Red Blood Count 3.41 M/mm3 (4.6-6.20); Red Cell Distribution Width 17.9 % (11.5-14.5); White Blood Count 7.2 K/mm3 (4.5-10.0)
[2023-03-22 05:03] LABS: Anion Gap 4 mmol/L (8-16); Blood Urea Nitrogen 26 mg/dL (9-20); Calcium 6.6 mg/dL (8.4-10.2); Carbon Dioxide 28 mmol/L (22-30); Chloride 102 mmol/L (98-107); Estimated CRCL calculation 92 ml/min; Estimated Glomerular Filt Rate > 60; Glucose 148 mg/dL (65-110); Magnesium 1.9 mg/dL (1.6-2.3); Potassium 3.4 mmol/L (3.4-5.0); Sodium 134 mmol/L (137-145)
[2023-03-22] MEDS: AMIODARONE 360 MG/D5W 200 ML 360 MG/200 ML BAG 33.33 MG IV CONT ×2 (05:24→11:39)
[2023-03-22] MEDS: CENTRAL LINE FLUSH 10 ML IV PUSH ×3 (05:25→20:14)
[2023-03-22] MEDS: KCL 40 MEQ/WATER 100 ML 100 ML 25 ML IVPB (08:06)
[2023-03-22] MEDS: POTASSIUM CHLORIDE 20 MEQ ER TABLET 40 MEQ PO (08:13)
[2023-03-22] MEDS: metFORMIN HCL XR 500 MG TAB.SR.24H 2000 MG PO (08:14)
[2023-03-22] MEDS: FINASTERIDE 5 MG TABLET PO (08:14)
[2023-03-22] MEDS: EMPAGLIFLOZIN 25 MG TABLET PO (08:14)
[2023-03-22] MEDS: ASPIRIN 81 MG CHEWABLE TABLET PO (08:14)
[2023-03-22] MEDS: DIGOXIN 250 MCG TABLET PO (08:14)
[2023-03-22] MEDS: PRAVASTATIN SODIUM 20 MG TABLET 40 MG PO (08:15)
[2023-03-22] MEDS: PANTOPRAZOLE SODIUM IV 40 MG VIAL IV PUSH ×2 (08:15→20:14)
[2023-03-22] MEDS: PREGABALIN (*CRX) 75 MG CAPSULE 150 MG PO (08:15)
[2023-03-22] MEDS: TAMSULOSIN HCL 0.4 MG CAPSULE PO (08:16)
--- NOTE | 2023-03-22 08:31 | WPDANESPN ---
Anes - Prog Note Post-Op Date/Time: 03/22/23 08:31 Cardiovascular status: other (patient been off and on levophed. tachycardic and hypotensive) Respiratory status: normal Airway patency: baseline Mental status: baseline Post-Op hydration status: other (IV fluid) Vital Signs: Last Vital Signs Temp 36.6 C 03/21/23 16:00 Pulse 106 H 03/22/23 08:14 Resp 21 H 03/22/23 06:00 BP 84/50 L 03/22/23 06:45 Pulse Ox 97 03/22/23 06:00 O2 Del Method Room Air 03/22/23 00:00 FiO2 98 03/21/23 16:00 Pain Score (VAS): 0 I/O: Intake & Output 03/21/23 03/22/23 03/22/23 23:59 07:59 15:59 Intake Total 710 200 Output Total 2850 1300 Balance -2140 -1100 Laboratory Tests 03/22/23 04:43 03/22/23 04:43 03/21/23 03/21/23 03/21/23 10:25 12:09 16:58 WBC RBC Hgb Hct MCV MCH MCHC RDW Plt Count MPV Sodium Potassium Chloride Carbon Dioxide Anion Gap BUN Creatinine Estim Creat Clear Calc Estimated GFR Glucose POC Capillary Glucose 190 H 178 H Lactic Acid 2.4 H Calcium Magnesium Vancomycin Trough 03/21/23 03/21/23 03/22/23 22:16 22:18 04:43 WBC 7.2 RBC 3.41 L Hgb 8.1 L Hct 27.8 L MCV 81.5 MCH 23.8 L MCHC 29.1 L RDW 17.9 H Plt Count 282 MPV 10.7 H Sodium 134 L Potassium 3.4 Chloride 102 Carbon Dioxide 28 Anion Gap 4 L BUN 26 H D Creatinine 0.70 Estim Creat Clear Calc 92 Estimated GFR > 60 Glucose 148 H POC Capillary Glucose 163 H Lactic Acid Calcium 6.6 L Magnesium 1.9 Vancomycin Trough 10.7 Microbiology 03/20/23 02:45 Decubitus Ulcer Wound Culture - Final 03/20/23 09:37 Urine [place]te [place] Urine Culture - Final Patient Feedback: Patient satisfied with anesthetic care.
--- NOTE | 2023-03-22 08:35 | PCOTNOTE ---
Spoke with logging equipment mechanic Dr. Colmenares, who stated pt. can be discharged from therapy services at this time, as pt. remains hypotensive. Reorder therapy services when pt. able to participate safely.
--- NOTE | 2023-03-22 08:43 | PCPTNOTE ---
Per OT: cancelling therapy orders at this time due to pt not being medically appropriate at this time.
[2023-03-22] MEDS: hetaSTARCH 6%/NACL 500 ML 250 ML IV CONT (08:52)
[2023-03-22] MEDS: MONTELUKAST SODIUM 10 MG TABLET PO (08:52)
[2023-03-22] MEDS: MIDODRINE HCL 10 MG TABLET PO ×3 (08:52→17:05)
--- NOTE | 2023-03-22 09:32 | WPDINTPN ---
Progress Note: A&P Assessment and Plan (1) Septic shock: Code(s): A41.9 - Sepsis, unspecified organism; R65.21 - Severe sepsis with septic shock Status: Acute Assessment and Plan: 03/20/2023: Patient was transferred from the intermediate Unit after being found hypotensive despite 2.5 L of IV fluid bolus. PICC line was inserted and patient was started on Levophed. Patient has minimal urine output on 03/19 despite he drinking lot of fluids and receiving IV fluid bolus. Whyte was flushed, with return of purulent drainage in the urine tubing along with sediments. -wean Levophed to maintain MAP > 65 mmHg at all times propofol adequate end organ perfusion -source likely UTI/pyelonephritis, decubitus ulcer, possible cholecystitis as seen on the CT scan below -03/20 CT scan of the abdomen and pelvis showed 1. Bilateral hydronephrosis with urothelial enhancement, suspicious for ascending urinary tract infection and/or pyelonephritis. 2: Distended gallbladder with small amount of surrounding fluid. Cannot exclude cholecystitis. 3:? Right sacral decubitus ulcer. No evidence for osteomyelitis. 4:? Bibasilar airspace disease, most likely dependent atelectasis. Small pleural effusions -continue meropenem, vancomycin (03/20) -03/21: Discontinued Flagyl -lactic is 2.4 this morning -03/20 acute kidney injury with creatinine increased to 1.5 from 0.7 on 03/19. -creatinine has normalized -03/19: Blood cultures : No growth x2 so far -03/20: Wound culture showed a mix of organisms -03/20: Urine cultures negative -03/21: Wound culture during debridement growing Gram-negative bacilli and Gram-positive cocci (2) Acute pyelitis: Code(s): N10 - Acute pyelonephritis Status: Acute Assessment and Plan: Treatment as above 03/20 renal ultrasound: Showed bilateral renal cysts, mild bilateral hydronephrosis (3) Hydronephrosis: Code(s): N13.30 - Unspecified hydronephrosis Status: Acute Assessment and Plan: Urology was following the patient, recommended to keep the Whyte catheter before voiding trial -will continue to flash Whyte at regular intervals (4) Acute renal insufficiency: Code(s): N28.9 - Disorder of kidney and ureter, unspecified Status: Acute Assessment and Plan: Patient with acute kidney injury with creatinine of 1.5 on 03/20 (from 0.7) -adequate fluid resuscitation -lactic acid trending down -patient on see Levophed, will maintain MAP > 65 mmHg for adequate end organ perfusion -continue to monitor renal function, electrolytes and urine output -03/21 will discontinue sodium bicarb infusion and start normal saline maintenance IV fluids at 75 mL/hour -will give additional IV fluid -creatinine has normalized (5) Anemia: Qualifiers: Anemia type: unspecified type Qualified Code(s): D64.9 - Anemia, unspecified Code(s): D64.9 - Anemia, unspecified Status: Acute Assessment and Plan: Folic acid and vitamin B12 within normal limit -iron panel showed decreased iron levels, TIBC and% saturation. MCV is normal, likely anemia of chronic disease -stool for Hemoccult is negative -hemoglobin has been stable (6) Atrial fibrillation with RVR: Code(s): I48.91 - Unspecified atrial fibrillation Status: Acute Assessment and Plan: Patient with AFib RVR status post cardioversion x2 on admission on 03/08/2022 -patient was placed on metoprolol, digoxin and p.o. amiodarone by Cardiology -in the intermediate Unit patient remained AFib RVR and amiodarone infusion was started -patient now in shock, holding metoprolol -continue digoxin -03/20: I asked the bedside RN to increase the amiodarone to 1 mg/min infusion -discuss with Cardiology, will decrease amiodarone to 0.5 mg/min infusion, if patient goes into AFib RVR bolus in with digoxin -patient on Eliquis which I have currently held since patient may need debridement of his decubitus/pressure
--- NOTE | 2023-03-22 09:53 | PM.PNCARD ---
Progress Note: A&P Assessment and Plan (1) Atrial fibrillation with rapid ventricular response: Code(s): I48.91 - Unspecified atrial fibrillation Status: Acute Assessment and Plan: Paroxysmal atrial fibrillation, recurrent atrial fibrillation with RVR during this hospitalization. Pursuing rate control strategy. Metoprolol on hold due to pressor requirement. Recommend to restart Metoprolol once no longer needing pressors and hemodynamics are stable. Continue Amiodarone drip, wean down to 0.5. Continue Digoxin. Will check a Digoxin level on 03/24. Anticoagulation on hold due to recent surgery on 03/21. Resume anticoagulation when okay from a surgical standpoint. Cannot pursue cardioversion until patient can tolerate uninterrupted anticoagulation. If we were to pursue cardioversion, it would have to be KATHY guided as anticoagulation was held and with Anesthesia team. 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 Resume anticoagulation when okay from a surgical standpoint. (3) Septic shock: Code(s): A41.9 - Sepsis, unspecified organism; R65.21 - Severe sepsis with septic shock Status: Acute Assessment and Plan: In ICU, on antibiotics and pressors. Wean pressors as able Plan Recommendations/plan discussed with Intensivisit. Subjective Date/time seen: 03/22/23 09:53 Interval history: Reason for visit: Atrial fibrillation with RVR 73 year old male with coronary artery disease and paroxysmal atrial fibrillation.? Patient was hospitalized here for a number of days now with problems with sepsis, UTI, sacral decubitus.? Asked to sign back on the patient's case because of AF with RVR.? He is completely asymptomatic of this arrhythmia.? Started on intravenous amiodarone per the hospitalist service Date of service 03/14/2023: No complaints this morning.? He remains in atrial fibrillation with rate typically between 100-120bpm.? He is asymptomatic.? Remains on amiodarone drip. Date of service 03/15/2023: Heart rate remains not well controlled.? However, he is still asymptomatic.? He does not have any chest pain, shortness of breath, or palpitations.? Date of service 03/16: Still with intermittent RVR. Patient was hyoptensive this morning, Metoprolol could not be given due to SBP in the 70s. Date of service 03/17: Yesterday afternoon, Amiodarone drip was weaned off, however later he went back into RVR and was given a dose of Digoxin IV overnight and then later on an Amiodarone bolus. HR in the 130s this morning but patient remains asymptomatic from it and is comfortably sleeping. Date of service 03/19/2023: Heart rate is still elevated despite high-dose metoprolol, amiodarone and digoxin. He denies any chest pain or shortness of breath Date of service 03/20/2023: Transfer to the ICU yesterday because of altered mental status and lethargy. He denies any chest pain or shortness of breath. Heart rate is still elevated but a bit better controlled. Date of service 03/21/2023: Patient states he is feeling well. In atrial fibrillation, HR in the 110s-120s. Asymptomatic from it. Remains on Amiodarone drip and Levophed drip. Review of Systems Review of Systems: All systems reviewed & are unremarkable except as noted in HPI and below (HPI) Exam Const: General: comfortable and no acute distress Eyes: General: appearance normal, both eyes and all related structures Sclera: sclerae normal Resp: Effort & Inspection: normal respiratory effort Cardio: Rate: tachycardic Rhythm: abnormal rhythm irregularly irregular Neuro: Speech: normal speech Psych: Mental Status: mental status grossly normal Affect: normal affect Objective Data Vital Signs Vital Signs: Vital Signs - 24 hr 03/21/23 10:00 03/21/23 10:00 03/21/23 12:00 Temperature Pulse Rate 1
--- NOTE | 2023-03-22 11:00 | PCFNICU ---
ICU Rounding Note: Pt current nutrition is DBCC. Nutrition recommendation: Reinier BID and Glucerna BID. Last recorded weight is 83 kg. Bowel Motility:+Bm reported 03/22 Labs Reviewed:Glu 148, BUN 26, NA 134, Hct 27.8,Hgb 8.1 Meds Noted:Eliquis, Lyrica, Protonix, NS at 75 ml//hr. Skin:sacral-unstageable pressure ulcer. Additional Notes: Patient remains on DBCC diet. wound vac placed. Protein modular recommend for wound healing of Reinier BID. Also recommend Glucerna shake BID providing an additional 220 kcals and 10 gms protein. Agree with diet orders. Following daily in ICU rounds. Will monitor weight, labs, skin, oral intake every 7 days.
--- NOTE | 2023-03-22 11:04 | PM.PNGS ---
Progress Note: A&P Assessment and Plan (1) Decubitus ulcer: Code(s): L89.90 - Pressure ulcer of unspecified site, unspecified stage Status: Acute Assessment and Plan: Status post debridement postop day 1, will leave wound VAC on for another day and then have wound care nurses change the wound VAC on Tuesday. Likely will need to go back to the operating for another evaluation and debridement of any more devitalized tissue. Consider placement of Axio Fill allograft to augment healing of the wound and replacement of the wound VAC later this week or early next week. Continue present management in ICU as per cattery operator. Following. Subjective Subjective Date/Time Seen: 03/22/23 11:04 Interval history: Patient awakened ICU sitting up and eating breakfast. Minor pain in the sacral region. He is still on Levophed but at a stable rate. No fever. White blood count 7200 today. Exam Skin: Other: Sacral decubitus wound dressed with a wound VAC in place. Drainage is about 50cc of bloody serous fluid. Wound VAC has good seal. Objective Data Vital Signs Vital Signs: Vital Signs - 24 hr 03/21/23 12:00 03/21/23 12:00 03/21/23 12:00 Temperature 37.1 C Pulse Rate 105 H 105 H Respiratory Rate 17 Blood Pressure 102/57 L Pulse Oximetry 97 Oxygen Delivery Room Air Fraction of Inspired Oxygen 03/21/23 16:00 03/21/23 16:00 03/21/23 16:00 Temperature 36.6 C Pulse Rate 90 90 90 Respiratory Rate 24 H 24 H Blood Pressure 96/58 L Pulse Oximetry 94 94 Oxygen Delivery Room Air Fraction of Inspired Oxygen 98 03/21/23 18:00 03/21/23 18:00 03/21/23 20:00 Temperature Pulse Rate 101 H 106 H 103 H Respiratory Rate 21 H 21 H Blood Pressure 103/63 96/56 L Pulse Oximetry 97 97 Oxygen Delivery Fraction of Inspired Oxygen 03/21/23 22:00 03/21/23 22:32 03/21/23 21:00 Temperature Pulse Rate 103 H 103 H 102 H Respiratory Rate 23 H 23 H Blood Pressure 93/56 L 94/50 L Pulse Oximetry 96 96 Oxygen Delivery Room Air Fraction of Inspired Oxygen 03/22/23 00:40 03/21/23 23:00 03/22/23 00:00 Temperature Pulse Rate 92 100 95 Respiratory Rate 20 18 Blood Pressure 76/51 L 80/47 L Pulse Oximetry 94 97 Oxygen Delivery Room Air Fraction of Inspired Oxygen 03/21/23 23:30 03/22/23 00:00 03/22/23 01:00 Temperature Pulse Rate 102 H 101 H 97 Respiratory Rate Blood Pressure 97/58 L 84/55 L 97/61 L Pulse Oximetry Oxygen Delivery Fraction of Inspired Oxygen 03/22/23 02:00 03/21/23 23:37 03/22/23 05:24 Temperature Pulse Rate 95 98 109 H Respiratory Rate 18 Blood Pressure 96/53 L 107/44 L Pulse Oximetry 97 Oxygen Delivery Fraction of Inspired Oxygen 03/21/23 20:00 03/21/23 22:00 03/22/23 00:00 Temperature Pulse Rate 104 H 103 H 99 Respiratory Rate Blood Pressure Pulse Oximetry Oxygen Delivery Fraction of Inspired Oxygen 03/22/23 02:00 03/22/23 04:00 03/22/23 04:00 Temperature Pulse Rate 96 97 97 Respiratory Rate 20 Blood Pressure 102/61 Pulse Oximetry 97 Oxygen Delivery Fraction of Inspired Oxygen 03/22/23 04:00 03/22/23 06:00 03/22/23 06:00 Temperature Pulse Rate 101 H 108 H 106 H Respiratory Rate 19 21 H Blood Pressure 102/61 97/55 L Pulse Oximetry 96 97 Oxygen Delivery Fraction of Inspired Oxygen 03/22/23 06:00 03/22/23 05:30 03/22/23 04:00 Temperature Pulse Rate 108 H 106 H 101 H Respiratory Rate Blood Pressure 97/55 L 94/59 L 102/61 Pulse Oximetry Oxygen Delivery Fraction of Inspired Oxygen 03/22/23 06:45 03/22/23 08:14 03/22/23 08:00 Temperature Pulse Rate 112 H 106 H 109 H Respiratory Rate Blood Pressure 84/50 L Pulse Oximetry Oxygen Delivery Fraction of Inspired Oxygen 03/22/23 08:00 03/22/23 08:00 03/22/23 08:00 Temperature 36.7 C Pulse Rate 109 H 109 H 109 H Respiratory
[2023-03-22] MEDS: NOREPINEPHRINE 8 MG/D5W 250 ML 8 MG/250 ML BAG 9.38 MG IV CONT (11:38)
[2023-03-22] MEDS: ALBUMIN HUMAN 25% 25 GM/100 ML 100 ML IVPB ×2 (11:38→18:03)
[2023-03-22 11:52] LABS: Glucose Point of Care 186 mg/dl (65-105)
--- NOTE | 2023-03-22 14:26 | WPDPN ---
Progress Note: A&P Assessment and Plan (1) Septic shock: Code(s): A41.9 - Sepsis, unspecified organism; R65.21 - Severe sepsis with septic shock Status: Acute Assessment and Plan: Resolved (2) Acute pyelitis: Code(s): N10 - Acute pyelonephritis Status: Acute Assessment and Plan: Continue Omnicef. Last day March 18, 2023. (3) Hydronephrosis: Code(s): N13.30 - Unspecified hydronephrosis Status: Acute Assessment and Plan: Appreciate urology evaluation recommendation, continue tamsulosin and oxybutynin. And finasteride. -urinary catheter was placed per Urology for urinary retention Will likely need follow-up with Urology as an outpatient for management of Whyte (4) Acute renal insufficiency: Code(s): N28.9 - Disorder of kidney and ureter, unspecified Status: Acute Assessment and Plan: Monitor kidney function. Monitor electrolytes. (5) Anemia: Qualifiers: Anemia type: unspecified type Qualified Code(s): D64.9 - Anemia, unspecified Code(s): D64.9 - Anemia, unspecified Status: Acute Assessment and Plan: Likely anemia of chronic disease. (6) Atrial fibrillation with RVR: Code(s): I48.91 - Unspecified atrial fibrillation Status: Acute Assessment and Plan: On IV amiodarone. Continue anticoagulation. Transitioning to oral metoprolol. Appreciate cardiology input. 03/22/2023 interval history, 73-year-old male with a atrial fibrillation RVR seen by cardiology being treated with amiodarone drip and metoprolol was added however patient blood pressure was soft unable to tolerate metoprolol held the medication, patient was seen by Cardiology digoxin was added HR is trending down and blood pressure is improving, patient has significant sacral decubital ulcers and necrosis, was seen by surgery service, patient will need surgical debridement however patient is not a good candidate for the surgery, once cardiac issues have stabilized may consider surgical interventon, on 03/19 patient remained clinically stable however he had developed fever and more somnolent, suspect patient has again developed sepsis from his wound, will collect blood culture and wound culture start the patient, ceftriaxone, 2 g q.day, Flagyl 500 mg q.8 and vancomycin per pharmacy later in the evening patient was transferred to ICU as patient was hypotensive and started on levophed, ct scan abdomen is suspicious pyelonephritis, and now patient is being treated with Meropenem, flagyl and vancomcin, urine and blood culture no growth so far, on 03/21 patient was seen by surgery service had debridement of the wound, patient remains hypotensive, seen by tire bagger and will monitor patient will be seen head of visual merchandising and further recommendation to follow. (7) Diabetes mellitus type 2, uncontrolled: Status: Acute Assessment and Plan: Monitor blood sugar (8) Hypertension: Code(s): I10 - Essential (primary) hypertension Status: Acute Assessment and Plan: Monitor (9) Decubitus ulcer: Code(s): L89.90 - Pressure ulcer of unspecified site, unspecified stage Status: Acute Assessment and Plan: Wound care following the patient Subjective Date/time seen: 03/22/23 14:26 Interval history: 03/22/2023 interval history, 73-year-old male with a atrial fibrillation RVR seen by cardiology being treated with amiodarone drip and metoprolol was added however patient blood pressure was soft unable to tolerate metoprolol held the medication, patient was seen by Cardiology digoxin was added HR is trending down and blood pressure is improving, patient has significant sacral decubital ulcers and necrosis, was seen by surgery service, patient will need surgical debridement however patient is not a good candidate for the surgery, once cardiac issues have stabilized may consider surgical interventon, on 03/19 patient remained clinically
[2023-03-22 17:14] LABS: Glucose Point of Care 156 mg/dl (65-105)
[2023-03-22] MEDS: INSULIN GLARGINE (*BKC) 100 UNITS/ML 15 UNITS SUB-Q (20:14)
[2023-03-22 20:22] LABS: Glucose Point of Care 177 mg/dl (65-105)
[2023-03-23] VITALS (21 sets, daily range): BP systolic 83–109; BP diastolic 55–73; PULSE 99–119; RESP 15–22; TEMP 36.1–37; O2SAT 93–100
[2023-03-23] MEDS: VANCOMYCIN 1,250 MG/NS 250 ML 1,250 MG/250 ML BAG 166.67 MG IVPB ×2 (01:08→18:19)
[2023-03-23] MEDS: ALBUMIN HUMAN 25% 25 GM/100 ML 100 ML IVPB ×2 (01:08→06:15)
[2023-03-23] MEDS: MEROPENEM 1 GM in SODIUM CHLORIDE 0.9% IV 100 ML 200 ML IVPB ×3 (02:39→18:13)
[2023-03-23] MEDS: SODIUM CHLORIDE 0.9% IV 1,000 ML 75 ML IV CONT (06:15)
[2023-03-23] MEDS: oxyCODONE/ACETAMINOPHEN (*CRX) 5-325 MG TABLET 1 TABLET PO ×2 (06:18→13:32)
[2023-03-23] MEDS: CENTRAL LINE FLUSH 10 ML IV PUSH ×3 (06:38→20:10)
[2023-03-23 06:45] LABS: Basophils Percent Auto 0.4 % (0.2-1.2); Eosinophils Percent Auto 0.7 % (0-4.4); Hematocrit 24.9 % (42.0-52.0); Hemoglobin 7.1 g/dL (14.0-18.0); Immature Granulocyte Absolute 0.05 K/mm3 (0.00-0.031); Immature Granulocyte Percent A 1.8 % (0-0.5); Lymphocytes Absolute Auto 0.44 K/mm3 (0.9-3.2); Lymphocytes Percent Auto 15.8 % (18.3-44.2); Mean Corpuscular HGB Conc 28.5 g/dl (32-36); Mean Corpuscular Hemoglobin 23.6 pg (26-34); Mean Corpuscular Volume 82.7 fl (80-100); Mean Platelet Volume 10.3 fl (7.4-10.4); Monocytes Absolute Auto 0.1 K/mm3 (0.1-0.6); Neutrophils Absolute Auto 2.1 K/mm3 (1.3-6.7); Neutrophils Percent Auto 76.3 % (45.5-73.1); Platelet Count Result 195 k/mm3 (150-375); Red Blood Count 3.01 M/mm3 (4.6-6.20); Red Cell Distribution Width 18.1 % (11.5-14.5); White Blood Count 2.8 K/mm3 (4.5-10.0)
[2023-03-23 06:56] LABS: Alanine Aminotransferase 9 U/L (6-50); Albumin Level 1.9 g/dL (3.5-5.1); Alkaline Phosphatase 100 U/L (38-126); Anion Gap 4 mmol/L (8-16); Aspartate Amino Transferase 29 U/L (17-59); Bilirubin,Total 0.3 mg/dL (0.2-1.3); Blood Urea Nitrogen 17 mg/dL (9-20); Calcium 6.8 mg/dL (8.4-10.2); Carbon Dioxide 26 mmol/L (22-30); Chloride 103 mmol/L (98-107); Estimated CRCL calculation 124 ml/min; Estimated Glomerular Filt Rate > 60; Glucose 129 mg/dL (65-110); Magnesium 1.6 mg/dL (1.6-2.3); Phosphorus 2.1 mg/dL (2.5-4.5); Potassium 3.5 mmol/L (3.4-5.0); Sodium 133 mmol/L (137-145)
[2023-03-23 07:34] LABS: Platelet Estimate Adequate (Adequate); Poikilocytosis 1+ (NORMAL); Tear Drop Cells 1+ (NORMAL)
[2023-03-23 07:35] LABS: Schistocytes 1+ (NORMAL)
--- NOTE | 2023-03-23 08:16 | WPDINTPN ---
Progress Note: A&P Assessment and Plan (1) Septic shock: Code(s): A41.9 - Sepsis, unspecified organism; R65.21 - Severe sepsis with septic shock Status: Acute Assessment and Plan: 03/20/2023: Patient was transferred from the intermediate Unit after being found hypotensive despite 2.5 L of IV fluid bolus. PICC line was inserted and patient was started on Levophed. Patient has minimal urine output on 03/19 despite he drinking lot of fluids and receiving IV fluid bolus. Whyte was flushed, with return of purulent drainage in the urine tubing along with sediments. -wean Levophed to maintain MAP > 65 mmHg at all times propofol adequate end organ perfusion -source likely UTI/pyelonephritis, decubitus ulcer, possible cholecystitis as seen on the CT scan below -03/20 CT scan of the abdomen and pelvis showed 1. Bilateral hydronephrosis with urothelial enhancement, suspicious for ascending urinary tract infection and/or pyelonephritis. 2: Distended gallbladder with small amount of surrounding fluid. Cannot exclude cholecystitis. 3:? Right sacral decubitus ulcer. No evidence for osteomyelitis. 4:? Bibasilar airspace disease, most likely dependent atelectasis. Small pleural effusions -continue meropenem, vancomycin (03/20) -03/21: Discontinued Flagyl -03/20 acute kidney injury with creatinine increased to 1.5 from 0.7 on 03/19. -creatinine has normalized -03/19: Blood cultures : No growth x2 so far -03/20: Wound culture showed a mix of organisms -03/20: Urine cultures negative -03/21: Wound culture during debridement growing Gram-negative bacilli and Gram-positive cocci (2) Acute pyelitis: Code(s): N10 - Acute pyelonephritis Status: Acute Assessment and Plan: Treatment as above 03/20 renal ultrasound: Showed bilateral renal cysts, mild bilateral hydronephrosis (3) Hydronephrosis: Code(s): N13.30 - Unspecified hydronephrosis Status: Acute Assessment and Plan: Urology was following the patient, recommended to keep the Whyte catheter before voiding trial -will continue to flash Whyte at regular intervals (4) Acute renal insufficiency: Code(s): N28.9 - Disorder of kidney and ureter, unspecified Status: Acute Assessment and Plan: Patient with acute kidney injury with creatinine of 1.5 on 03/20 (from 0.7) -adequate fluid resuscitation -lactic acid trending down -patient on see Levophed, will maintain MAP > 65 mmHg for adequate end organ perfusion -continue to monitor renal function, electrolytes and urine output -03/21 will discontinue sodium bicarb infusion and start normal saline maintenance IV fluids at 75 mL/hour -will give additional IV fluid -creatinine has normalized (5) Anemia: Qualifiers: Anemia type: unspecified type Qualified Code(s): D64.9 - Anemia, unspecified Code(s): D64.9 - Anemia, unspecified Status: Acute Assessment and Plan: Folic acid and vitamin B12 within normal limit -iron panel showed decreased iron levels, TIBC and% saturation. MCV is normal, likely anemia of chronic disease -stool for Hemoccult is negative -hemoglobin and WBC count has dropped this morning, will repeat stat CBC (6) Atrial fibrillation with RVR: Code(s): I48.91 - Unspecified atrial fibrillation Status: Acute Assessment and Plan: Patient with AFib RVR status post cardioversion x2 on admission on 03/08/2022 -patient was placed on metoprolol, digoxin and p.o. amiodarone by Cardiology -in the intermediate Unit patient remained AFib RVR and amiodarone infusion was started -patient now in shock, holding metoprolol -continue digoxin -03/22: Amiodarone decreased to 0.5mg/min infusion -patient on Eliquis which I have currently held since patient may need debridement of his decubitus/pressure ulcer -anticoagulation currently on hold due to wound debridement done on 03/22, will check with surgery as he can restart his antico
[2023-03-23 08:17] LABS: Glucose Point of Care 143 mg/dl (65-105)
[2023-03-23 08:48] LABS: Hematocrit 24.5 % (42.0-52.0); Hemoglobin 7.1 g/dL (14.0-18.0); Mean Corpuscular Hemoglobin 24.1 pg (26-34); Mean Corpuscular Volume 83.1 fl (80-100); Platelet Count Result 190 k/mm3 (150-375); Red Blood Count 2.95 M/mm3 (4.6-6.20)
[2023-03-23] MEDS: POTASSIUM CHLORIDE 20 MEQ ER TABLET 40 MEQ PO (09:26)
[2023-03-23] MEDS: MAGNESIUM SULF 2 GM/WATER 50ML 2 GM/50 ML BAG IVPB (09:27)
[2023-03-23] MEDS: PRAVASTATIN SODIUM 20 MG TABLET 40 MG PO (09:28)
[2023-03-23] MEDS: ASPIRIN 81 MG CHEWABLE TABLET PO (09:28)
[2023-03-23] MEDS: metFORMIN HCL XR 500 MG TAB.SR.24H 2000 MG PO (09:28)
[2023-03-23] MEDS: EMPAGLIFLOZIN 25 MG TABLET PO (09:28)
[2023-03-23] MEDS: MIDODRINE HCL 10 MG TABLET PO ×3 (09:28→18:13)
[2023-03-23] MEDS: DIGOXIN 250 MCG TABLET PO (09:28)
[2023-03-23] MEDS: MONTELUKAST SODIUM 10 MG TABLET PO (09:29)
[2023-03-23] MEDS: PANTOPRAZOLE SODIUM IV 40 MG VIAL IV PUSH ×2 (09:29→20:09)
[2023-03-23] MEDS: FINASTERIDE 5 MG TABLET PO (09:29)
[2023-03-23] MEDS: PREGABALIN (*CRX) 75 MG CAPSULE 150 MG PO (09:29)
[2023-03-23] MEDS: TAMSULOSIN HCL 0.4 MG CAPSULE PO (09:29)
[2023-03-23] MEDS: AMIODARONE 360 MG/D5W 200 ML 360 MG/200 ML BAG 16.67 MG IV CONT ×2 (10:32→21:24)
--- NOTE | 2023-03-23 11:47 | PM.PNCARD ---
Progress Note: A&P Assessment and Plan (1) Atrial fibrillation with rapid ventricular response: Code(s): I48.91 - Unspecified atrial fibrillation Status: Acute Assessment and Plan: Paroxysmal atrial fibrillation, recurrent atrial fibrillation with RVR during this hospitalization. Pursuing rate control strategy. Metoprolol on hold due to pressor requirement. Recommend to restart Metoprolol once no longer needing pressors and hemodynamics are stable. Continue Amiodarone drip, currently at 0.5. Continue Digoxin. Will check a Digoxin level on 03/24. Anticoagulation on hold due to recent surgery on 03/21. Resume anticoagulation when okay from a surgical standpoint. Cannot pursue cardioversion until patient can tolerate uninterrupted anticoagulation. If we were to pursue cardioversion, it would have to be KATHY guided as anticoagulation was held and with Anesthesia team. 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 Resume anticoagulation when okay from a surgical standpoint. (3) Septic shock: Code(s): A41.9 - Sepsis, unspecified organism; R65.21 - Severe sepsis with septic shock Status: Acute Assessment and Plan: In ICU, on antibiotics and pressors. Wean pressors as able Plan Recommendations/plan discussed with Intensivisit. Subjective Date/time seen: 03/23/23 11:47 Interval history: Reason for visit: Atrial fibrillation with RVR 73 year old male with coronary artery disease and paroxysmal atrial fibrillation.? Patient was hospitalized here for a number of days now with problems with sepsis, UTI, sacral decubitus.? Asked to sign back on the patient's case because of AF with RVR.? He is completely asymptomatic of this arrhythmia.? Started on intravenous amiodarone per the hospitalist service Date of service 03/14/2023: No complaints this morning.? He remains in atrial fibrillation with rate typically between 100-120bpm.? He is asymptomatic.? Remains on amiodarone drip. Date of service 03/15/2023: Heart rate remains not well controlled.? However, he is still asymptomatic.? He does not have any chest pain, shortness of breath, or palpitations.? Date of service 03/16: Still with intermittent RVR. Patient was hyoptensive this morning, Metoprolol could not be given due to SBP in the 70s. Date of service 03/17: Yesterday afternoon, Amiodarone drip was weaned off, however later he went back into RVR and was given a dose of Digoxin IV overnight and then later on an Amiodarone bolus. HR in the 130s this morning but patient remains asymptomatic from it and is comfortably sleeping. Date of service 03/19/2023: Heart rate is still elevated despite high-dose metoprolol, amiodarone and digoxin. He denies any chest pain or shortness of breath Date of service 03/20/2023: Transfer to the ICU yesterday because of altered mental status and lethargy. He denies any chest pain or shortness of breath. Heart rate is still elevated but a bit better controlled. Date of service 03/21/2023: Patient states he is feeling well. In atrial fibrillation, HR in the 110s-120s. Asymptomatic from it. Remains on Amiodarone drip and Levophed drip. Date of service 03/22: Remains in atrial fibrillation but rates are better. Still on Levophed. Patient resting comfortably. Review of Systems Review of Systems: All systems reviewed & are unremarkable except as noted in HPI and below (HPI) Exam Const: General: comfortable and no acute distress Eyes: General: appearance normal, both eyes and all related structures Sclera: sclerae normal Resp: Effort & Inspection: normal respiratory effort Cardio: Rate: tachycardic Rhythm: abnormal rhythm irregularly irregular Neuro: Speech: normal speech Psych: Mental Status: mental status grossly normal Affect: normal affect Objective Data Vi
--- NOTE | 2023-03-23 11:55 | PCFNICU ---
Addendum entered by Tomasa Cunningham RD, LDN 03/24/23 10:56: skin: unstageable pressure ulcer-sacral. Original Note: ICU Rounding Note: Pt current nutrition is DBCC. Last recorded weight is 85.5 kg. Bowel Motility:+BM reported 03/23 Labs Reviewed:Glu 129, Cr 0.5,Alb 1.9,Hct 24.9,Hgb 7.1 Meds Noted:Eliquis,Lyrica, Lantus, Protonix, SSI Skin: WNL Additional Notes: Patient remains on DBCC. Patient has been tolerating oral diet. Intakes 25-100% of most meals. Diet supplements are also being tolerated of Reinier BID and Glucerna BID for wound healing. Agree with diet orders. Following daily in ICU rounds. Will monitor weight, labs, skin, oral intake every 7 days.
[2023-03-23 12:03] LABS: Glucose Point of Care 155 mg/dl (65-105)
--- NOTE | 2023-03-23 13:57 | PM.PNGS ---
Progress Note: A&P Assessment and Plan (1) Decubitus ulcer: Code(s): L89.90 - Pressure ulcer of unspecified site, unspecified stage Status: Acute Assessment and Plan: Wound VAC dressing has been changed today. There is still minimal amount of nonviable tissue over the sacrum medially in the wound. We will re-evaluate the wound next couple days to see if he will need to go back to the operating room for debridement of the remaining portion of the nonviable tissue and perhaps placement of a allograft to augment healing once granulation tissue is established. Continue present management intensive care unit. Subjective Subjective Date/Time Seen: 03/23/23 13:57 Interval history: Patient has remained stable intensive care unit on low-dose of Levophed. Wound care nurses are changing wound VAC today on the sacral decubitus ulcer. White blood cell count is 3000. Exam Skin: Other: The sacral decubitus ulcer bed is clean without necrotic tissue except for just over the medial portion where there is seems to be a little more lozano tissue over the periosteum of the sacrum. There was bleeding from the skin edges. Drainage is serosanguineous. Objective Data Vital Signs Vital Signs: Vital Signs - 24 hr 03/22/23 14:00 03/22/23 14:00 03/22/23 16:00 Temperature Pulse Rate 123 H 123 H 114 H Respiratory Rate 24 H Blood Pressure 94/50 L Pulse Oximetry 97 Oxygen Delivery Fraction of Inspired Oxygen 03/22/23 16:00 03/22/23 16:00 03/22/23 18:04 Temperature 37.0 C Pulse Rate 114 H 114 H 112 H Respiratory Rate 22 H 22 H Blood Pressure 101/60 101/56 L Pulse Oximetry 97 97 Oxygen Delivery Room Air Fraction of Inspired Oxygen 98 03/22/23 18:00 03/22/23 18:00 03/22/23 20:00 Temperature 36.9 C 37.0 C Pulse Rate 113 H 113 H 111 H Respiratory Rate 23 H 20 Blood Pressure 104/58 L 97/58 L Pulse Oximetry 97 98 Oxygen Delivery Fraction of Inspired Oxygen 03/22/23 20:00 03/23/23 01:00 03/23/23 02:40 Temperature Pulse Rate 111 H 116 H 104 H Respiratory Rate Blood Pressure 104/73 106/68 Pulse Oximetry Oxygen Delivery Fraction of Inspired Oxygen 03/22/23 22:00 03/23/23 00:00 03/23/23 02:00 Temperature Pulse Rate 114 H 113 H 99 Respiratory Rate Blood Pressure Pulse Oximetry Oxygen Delivery Fraction of Inspired Oxygen 03/22/23 22:00 03/23/23 00:00 03/23/23 02:00 Temperature 36.6 C Pulse Rate 114 H 113 H 99 Respiratory Rate 20 15 20 Blood Pressure 99/57 L 109/65 108/66 Pulse Oximetry 96 96 99 Oxygen Delivery Fraction of Inspired Oxygen 03/23/23 03:30 03/23/23 06:30 03/23/23 04:00 Temperature Pulse Rate 106 H 116 H 115 H Respiratory Rate Blood Pressure 105/70 85/58 L Pulse Oximetry Oxygen Delivery Fraction of Inspired Oxygen 03/23/23 06:00 03/23/23 04:00 03/23/23 06:00 Temperature 37.0 C Pulse Rate 114 H 115 H 114 H Respiratory Rate 17 20 Blood Pressure 102/60 102/60 Pulse Oximetry 97 98 Oxygen Delivery Fraction of Inspired Oxygen 03/23/23 08:00 03/23/23 09:28 03/22/23 17:40 Temperature 36.7 C Pulse Rate 115 H 114 H 113 H Respiratory Rate 21 H Blood Pressure 102/66 95/61 L Pulse Oximetry 100 Oxygen Delivery Fraction of Inspired Oxygen 03/23/23 10:32 03/23/23 08:00 03/23/23 10:00 Temperature Pulse Rate 113 H 106 H 115 H Respiratory Rate Blood Pressure 95/61 L Pulse Oximetry Oxygen Delivery Fraction of Inspired Oxygen Intake/Output Intake/Output: Intake & Output 03/20/23 03/21/23 03/22/23 03/23/23 23:59 23:59 23:59 23:59 Intake Total 9401 2860 6000 1540 Output Total 4625 4629 3150 2550 Balance 6359 -0045 2850 -1010 Meds/Results Medications: Active Medications Generic Name Dose Route Start Last Admin Trade Name Wilmerq PRN Reason Stop Dose Admin Acetaminophen 650 mg 03/09/23 04:45 03/15/23 11:10
[2023-03-23 16:05] LABS: Glucose Point of Care 185 mg/dl (65-105)
--- NOTE | 2023-03-23 16:44 | WPDPN ---
Progress Note: A&P Assessment and Plan (1) Septic shock: Code(s): A41.9 - Sepsis, unspecified organism; R65.21 - Severe sepsis with septic shock Status: Acute Assessment and Plan: Resolved (2) Acute pyelitis: Code(s): N10 - Acute pyelonephritis Status: Acute Assessment and Plan: Continue Omnicef. Last day March 18, 2023. (3) Hydronephrosis: Code(s): N13.30 - Unspecified hydronephrosis Status: Acute Assessment and Plan: Appreciate urology evaluation recommendation, continue tamsulosin and oxybutynin. And finasteride. -urinary catheter was placed per Urology for urinary retention Will likely need follow-up with Urology as an outpatient for management of Whyte (4) Acute renal insufficiency: Code(s): N28.9 - Disorder of kidney and ureter, unspecified Status: Acute Assessment and Plan: Monitor kidney function. Monitor electrolytes. (5) Anemia: Qualifiers: Anemia type: unspecified type Qualified Code(s): D64.9 - Anemia, unspecified Code(s): D64.9 - Anemia, unspecified Status: Acute Assessment and Plan: Likely anemia of chronic disease. (6) Atrial fibrillation with RVR: Code(s): I48.91 - Unspecified atrial fibrillation Status: Acute Assessment and Plan: On IV amiodarone. Continue anticoagulation. Transitioning to oral metoprolol. Appreciate cardiology input. 03/23/2023 interval history, 73-year-old male with a atrial fibrillation RVR seen by cardiology being treated with amiodarone drip and metoprolol was added however patient blood pressure was soft unable to tolerate metoprolol held the medication, patient was seen by Cardiology digoxin was added HR is trending down and blood pressure is improving, patient has significant sacral decubital ulcers and necrosis, was seen by surgery service, patient will need surgical debridement however patient is not a good candidate for the surgery, once cardiac issues have stabilized may consider surgical interventon, on 03/19 patient remained clinically stable however he had developed fever and more somnolent, suspect patient has again developed sepsis from his wound, will collect blood culture and wound culture start the patient, ceftriaxone, 2 g q.day, Flagyl 500 mg q.8 and vancomycin per pharmacy later in the evening patient was transferred to ICU as patient was hypotensive and started on levophed, ct scan abdomen is suspicious pyelonephritis, and now patient is being treated with Meropenem, flagyl and vancomcin, urine and blood culture no growth so far, on 03/21 patient was seen by surgery service had debridement of the wound, wound growing Enterococcus species, patient remains hypotensive, however today patient is more alert and oriented, his daughter is present in the room, seen by mixer tender and will monitor patient will be seen general internist and physician leader and further recommendation to follow. (7) Diabetes mellitus type 2, uncontrolled: Status: Acute Assessment and Plan: Monitor blood sugar (8) Hypertension: Code(s): I10 - Essential (primary) hypertension Status: Acute Assessment and Plan: Monitor (9) Decubitus ulcer: Code(s): L89.90 - Pressure ulcer of unspecified site, unspecified stage Status: Acute Assessment and Plan: Wound care following the patient Subjective Date/time seen: 03/23/23 16:44 Interval history: 03/23/2023 interval history, 73-year-old male with a atrial fibrillation RVR seen by cardiology being treated with amiodarone drip and metoprolol was added however patient blood pressure was soft unable to tolerate metoprolol held the medication, patient was seen by Cardiology digoxin was added HR is trending down and blood pressure is improving, patient has significant sacral decubital ulcers and necrosis, was seen by surgery service, patient will need surgical debridement however patient is not a good candidat
[2023-03-23 16:50] LABS: Vancomycin Trough 16.4 ug/mL (10.0-20.0)
--- NOTE | 2023-03-23 19:26 | PDONCCN ---
HPI - Date of Consult Date/Time: 03/23/23 19:26 Requesting Physician: Sima Estes MD Primary Care Provider: Mario Salmeron, - Consult Narrative Reason for consult: Anemia and Leukopenia Narrative: John Warren is a 73 year old male with DM II, chronic sacral ulcer, Afib, Hypertension and BPH who was admitted via ER on 03/08/23 for altered mental status. Further investigation revealed urinary tract infection including pyelonephritis. patient has been treated with antibiotics. he also has chronic sacral ulcer and has been on wound vac treatment. he was recently transferred to ICU on 03/20/23 for hypotension and is on Levophed for hypotension. In past few days he is noted to have mild leukopenia and further drop in hemoglobin. Patient has hx of leukopenia during acute infections. he was hospitalized 08/20/22-09/13/22 for sepsis and had WBC of 2.9K on 09/07/22. hematology is consulted for any further recommendations. Review of Systems - Review of Systems Patient has limited mobility due to generalized deconditioning and chronic sacral ulcer. He relies on his daughter and grand kids for daily living as they live next door. Patient denies fevers but has generalized weakness and fatigue. he has generalized swelling in his upper and lower extremities with excoriations and bruising. he has pain at sacral wound. He denies chest pain or dyspnea. There is no abdominal pain, nausea or vomiting. 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 Family History: Family History (Last Reviewed 03/18/23 @ 15:39 by Rian Mendoza MD) Father Cancer Hypertension Heart disease Mother Cancer Diabetes mellitus Hypertension Heart disease Sibling Cancer Hypertension Heart disease Other Asthma Carcinoma of colon Cerebrovascular accident Depression Family history of arthritis Family history of cardiovascular disease Family history of chronic obstructive pulmonary disease Family history of malignant neoplasm Family history of malignant neoplasm of breast in first degree relative Family history of mental disorder Malignant neoplasm of prostate - Social History Social History: Social History (Last Reviewed 03/18/23 @ 15:39 by Rian Mendoza MD) Alcohol Use: Alcohol intake: never Substance Use: Substance use: never Substance use type: does not use Others: Spiritual care concerns: No Smoking Status: Smoking status: Former smoker Tobacco type: cigarettes Second hand tobacco smoke exposure: No Approximate Smoking End Date: 1985 Social Determinants of Health: Has the Lack of Transportation Kept You From Medical Appointments or From Getting Medications?: No Within the Past 12 Months, Were You Worried Whether Your Food Would Run Out Before You Got Money to Buy More?: Never True What is Your Housing Situation Today?: I Have Housing Are You Worried That in the Next 2 Months, You May Not Have Your Own Housing to Live In?: Decline to Answer Do You Have Trouble Paying Your Heating Or Electricity Bill?: No Do You Have Trouble Paying For Medicines?: No Are You Currently Unemployed and Looking for Work?: No
[2023-03-23 19:42] LABS: Glucose Point of Care 222 mg/dl (65-105)
[2023-03-23] MEDS: INSULIN ASPART (*BKC) 100 UNITS/ML SUB-Q (20:10)
[2023-03-23] MEDS: INSULIN GLARGINE (*BKC) 100 UNITS/ML 15 UNITS SUB-Q (20:19)
[2023-03-24] VITALS (18 sets, daily range): BP systolic 85–104; BP diastolic 55–69; PULSE 116–120; RESP 17–23; TEMP 36.5–37; O2SAT 94–100
[2023-03-24] MEDS: MEROPENEM 1 GM in SODIUM CHLORIDE 0.9% IV 100 ML 200 ML IVPB ×3 (02:28→18:00)
[2023-03-24] MEDS: CENTRAL LINE FLUSH 10 ML IV PUSH ×3 (04:57→21:11)
[2023-03-24 05:07] LABS: Hematocrit 28.4 % (42.0-52.0); Hemoglobin 8.2 g/dL (14.0-18.0); Mean Corpuscular HGB Conc 28.9 g/dl (32-36); Mean Corpuscular Hemoglobin 23.9 pg (26-34); Mean Corpuscular Volume 82.8 fl (80-100); Mean Platelet Volume 9.8 fl (7.4-10.4); Platelet Count Result 231 k/mm3 (150-375); Red Blood Count 3.43 M/mm3 (4.6-6.20); Red Cell Distribution Width 18.6 % (11.5-14.5); White Blood Count 5.3 K/mm3 (4.5-10.0)
[2023-03-24 05:17] LABS: Anion Gap 4 mmol/L (8-16); Blood Urea Nitrogen 19 mg/dL (9-20); Carbon Dioxide 26 mmol/L (22-30); Chloride 103 mmol/L (98-107); Estimated CRCL calculation 124 ml/min; Estimated Glomerular Filt Rate > 60; Glucose 204 mg/dL (65-110); Magnesium 1.8 mg/dL (1.6-2.3); Sodium 133 mmol/L (137-145)
[2023-03-24] MEDS: VANCOMYCIN 1,250 MG/NS 250 ML 1,250 MG/250 ML BAG 166.67 MG IVPB ×2 (05:24→17:00)
[2023-03-24 05:55] LABS: Digoxin 1.3 ng/mL (0.8-2.0)
[2023-03-24 07:39] LABS: Glucose Point of Care 164 mg/dl (65-105)
[2023-03-24] MEDS: PRAVASTATIN SODIUM 20 MG TABLET 40 MG PO (08:21)
[2023-03-24] MEDS: ASPIRIN 81 MG CHEWABLE TABLET PO (08:21)
[2023-03-24] MEDS: EMPAGLIFLOZIN 25 MG TABLET PO (08:21)
[2023-03-24] MEDS: TAMSULOSIN HCL 0.4 MG CAPSULE PO (08:21)
[2023-03-24] MEDS: PREGABALIN (*CRX) 75 MG CAPSULE 150 MG PO (08:21)
[2023-03-24] MEDS: PANTOPRAZOLE SODIUM IV 40 MG VIAL IV PUSH ×2 (08:21→21:09)
[2023-03-24] MEDS: FINASTERIDE 5 MG TABLET PO (08:21)
[2023-03-24] MEDS: metFORMIN HCL XR 500 MG TAB.SR.24H 2000 MG PO (08:21)
[2023-03-24] MEDS: DIGOXIN 250 MCG TABLET PO (08:21)
[2023-03-24] MEDS: MONTELUKAST SODIUM 10 MG TABLET PO (08:21)
[2023-03-24] MEDS: MIDODRINE HCL 10 MG TABLET PO ×3 (08:21→17:01)
[2023-03-24] MEDS: ERGOCALCIFEROL 50,000 UNITS CAPSULE 50000 UNITS PO (08:25)
[2023-03-24] MEDS: AMIODARONE 360 MG/D5W 200 ML 360 MG/200 ML BAG 16.67 MG IV CONT ×2 (08:54→21:11)
--- NOTE | 2023-03-24 10:23 | PM.PNCARD ---
Progress Note: A&P Assessment and Plan (1) Atrial fibrillation with rapid ventricular response: Code(s): I48.91 - Unspecified atrial fibrillation Status: Acute Assessment and Plan: Paroxysmal atrial fibrillation, recurrent atrial fibrillation with RVR during this hospitalization. Pursuing rate control strategy. Metoprolol on hold due to pressor requirement. Recommend to restart Metoprolol once no longer needing pressors and hemodynamics are stable. Continue Amiodarone drip, currently at 0.5. Continue Digoxin. Digoxin level 03/24 is therapeutic at 1.3 (0.8-2.0). Anticoagulation on hold due to recent surgery on 03/21. Resume anticoagulation when okay from a surgical standpoint. Cannot pursue cardioversion until patient can tolerate uninterrupted anticoagulation. If we were to pursue cardioversion, it would have to be KATHY guided as anticoagulation was held and with Anesthesia team. 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 Resume anticoagulation when okay from a surgical standpoint. (3) Septic shock: Code(s): A41.9 - Sepsis, unspecified organism; R65.21 - Severe sepsis with septic shock Status: Acute Assessment and Plan: In ICU, on antibiotics and pressors. Wean pressors as able Plan Recommendations/plan discussed with [employer]. Subjective Date/time seen: 03/24/23 10:23 Interval history: Reason for visit: Atrial fibrillation with RVR 73 year old male with coronary artery disease and paroxysmal atrial fibrillation.? Patient was hospitalized here for a number of days now with problems with sepsis, UTI, sacral decubitus.? Asked to sign back on the patient's case because of AF with RVR.? He is completely asymptomatic of this arrhythmia.? Started on intravenous amiodarone per the hospitalist service Date of service 03/14/2023: No complaints this morning.? He remains in atrial fibrillation with rate typically between 100-120bpm.? He is asymptomatic.? Remains on amiodarone drip. Date of service 03/15/2023: Heart rate remains not well controlled.? However, he is still asymptomatic.? He does not have any chest pain, shortness of breath, or palpitations.? Date of service 03/16: Still with intermittent RVR. Patient was hyoptensive this morning, Metoprolol could not be given due to SBP in the 70s. Date of service 03/17: Yesterday afternoon, Amiodarone drip was weaned off, however later he went back into RVR and was given a dose of Digoxin IV overnight and then later on an Amiodarone bolus. HR in the 130s this morning but patient remains asymptomatic from it and is comfortably sleeping. Date of service 03/19/2023: Heart rate is still elevated despite high-dose metoprolol, amiodarone and digoxin. He denies any chest pain or shortness of breath Date of service 03/20/2023: Transfer to the ICU yesterday because of altered mental status and lethargy. He denies any chest pain or shortness of breath. Heart rate is still elevated but a bit better controlled. Date of service 03/22/2023: Patient states he is feeling well. In atrial fibrillation, HR in the 110s-120s. Asymptomatic from it. Remains on Amiodarone drip and Levophed drip. Date of service 03/23: Remains in atrial fibrillation but rates are better. Still on Levophed. Patient resting comfortably. Date of service 03/24: Heart rate in the 110s during my evaluation this morning. Per General Surgery, may need to take patient back to the operating room in the next couple of days for debridement of the remaining portion of the nonviable sacral tissue. Review of Systems Review of Systems: All systems reviewed & are unremarkable except as noted in HPI and below Exam Const: General: comfortable and no acute distress Eyes: General: appearance normal, both eyes and all related structures Sclera: scle
--- NOTE | 2023-03-24 10:50 | PCFNICU ---
ICU Rounding Note: Pt current nutrition is DBCC with Reinier and Glucerna BID. Last recorded weight is 87.2 kg. Bowel Motility:+Bm reported 03/23 Labs Reviewed:Glu 204, Cr 0.5,Na 133 Meds Noted:Eliquis, Protonix, Lyrica, Lantus,Levophed Skin: unstageable Pressure ulcer-sacral, wound vac. Additional Notes: Patient remains on DBCC diet-tolerating diet. Diet supplements continue of Reinier BID providing 80 kcals and 2.5 gms protein and Glucerna shakes BID providing 220 kcals and 10 gms protein. Agree with diet orders. Following daily in ICU rounds. Will monitor weight, labs, skin, oral intake every 7 days.
[2023-03-24] MEDS: DIGOXIN INJ 250 MCG/ML 2 ML AMP (*BKC) 125 MCG IV PUSH (11:13)
[2023-03-24 11:42] LABS: Glucose Point of Care 179 mg/dl (65-105)
--- NOTE | 2023-03-24 12:35 | WPDINTPN ---
Progress Note: A&P Assessment and Plan (1) Septic shock: Code(s): A41.9 - Sepsis, unspecified organism; R65.21 - Severe sepsis with septic shock Status: Acute Assessment and Plan: 03/20/2023: Patient was transferred from the intermediate Unit after being found hypotensive despite 2.5 L of IV fluid bolus. PICC line was inserted and patient was started on Levophed. Patient has minimal urine output on 03/19 despite he drinking lot of fluids and receiving IV fluid bolus. Whyte was flushed, with return of purulent drainage in the urine tubing along with sediments. -wean Levophed to maintain MAP > 65 mmHg at all times propofol adequate end organ perfusion -source likely UTI/pyelonephritis, decubitus ulcer, possible cholecystitis as seen on the CT scan below -03/20 CT scan of the abdomen and pelvis showed 1. Bilateral hydronephrosis with urothelial enhancement, suspicious for ascending urinary tract infection and/or pyelonephritis. 2: Distended gallbladder with small amount of surrounding fluid. Cannot exclude cholecystitis. 3:? Right sacral decubitus ulcer. No evidence for osteomyelitis. 4:? Bibasilar airspace disease, most likely dependent atelectasis. Small pleural effusions -continue meropenem, vancomycin (03/20) -03/21: Discontinued Flagyl -03/20 acute kidney injury with creatinine increased to 1.5 from 0.7 on 03/19. -creatinine has normalized -03/19: Blood cultures : No growth x2 so far -03/20: Wound culture showed a mix of organisms -03/20: Urine cultures negative -03/21: Wound culture during debridement growing Enterococcus species -continue midodrine (2) Acute pyelitis: Code(s): N10 - Acute pyelonephritis Status: Acute Assessment and Plan: Treatment as above 03/20 renal ultrasound: Showed bilateral renal cysts, mild bilateral hydronephrosis (3) Hydronephrosis: Code(s): N13.30 - Unspecified hydronephrosis Status: Acute Assessment and Plan: Urology was following the patient, recommended to keep the Whyte catheter before voiding trial -will continue to flash Whyte at regular intervals (4) Acute renal insufficiency: Code(s): N28.9 - Disorder of kidney and ureter, unspecified Status: Acute Assessment and Plan: Patient with acute kidney injury with creatinine of 1.5 on 03/20 (from 0.7) -adequate fluid resuscitation -lactic acid trending down -patient on see Levophed, will maintain MAP > 65 mmHg for adequate end organ perfusion -continue to monitor renal function, electrolytes and urine output -off all IV fluids, patient drinking adequate amount of IV fluids with good urine -creatinine has normalized (5) Anemia: Qualifiers: Anemia type: unspecified type Qualified Code(s): D64.9 - Anemia, unspecified Code(s): D64.9 - Anemia, unspecified Status: Acute Assessment and Plan: Folic acid and vitamin B12 within normal limit -iron panel showed decreased iron levels, TIBC and% saturation. MCV is normal, likely anemia of chronic disease -stool for Hemoccult is negative -03/23 hemoglobin and WBC count has dropped this morning, -03/24: WBC count and hemoglobin have improved without any intervention -appreciate heme/Onc evaluation and recommendations (6) Atrial fibrillation with RVR: Code(s): I48.91 - Unspecified atrial fibrillation Status: Acute Assessment and Plan: Patient with AFib RVR status post cardioversion x2 on admission on 03/08/2022 -patient was placed on metoprolol, digoxin and p.o. amiodarone by Cardiology -in the intermediate Unit patient remained AFib RVR and amiodarone infusion was started -patient now in shock, holding metoprolol -continue digoxin -03/22: Amiodarone decreased to 0.5mg/min infusion -Eliquis and therapeutic Lovenox on hold, first due to wound debridement and secondary due to anemia -discussed with surgery, okay to start low-dose Lovenox -03/24: since patient's hemo
[2023-03-24] MEDS: ENOXAPARIN 40 MG/0.4 ML SYRINGE SUB-Q (13:05)
[2023-03-24 16:14] LABS: Glucose Point of Care 196 mg/dl (65-105)
--- NOTE | 2023-03-24 17:16 | WPDPN ---
Progress Note: A&P Assessment and Plan (1) Septic shock: Code(s): A41.9 - Sepsis, unspecified organism; R65.21 - Severe sepsis with septic shock Status: Acute Assessment and Plan: Resolved (2) Acute pyelitis: Code(s): N10 - Acute pyelonephritis Status: Acute Assessment and Plan: Continue Omnicef. Last day March 18, 2023. (3) Hydronephrosis: Code(s): N13.30 - Unspecified hydronephrosis Status: Acute Assessment and Plan: Appreciate urology evaluation recommendation, continue tamsulosin and oxybutynin. And finasteride. -urinary catheter was placed per Urology for urinary retention Will likely need follow-up with Urology as an outpatient for management of Whyte (4) Acute renal insufficiency: Code(s): N28.9 - Disorder of kidney and ureter, unspecified Status: Acute Assessment and Plan: Monitor kidney function. Monitor electrolytes. (5) Anemia: Qualifiers: Anemia type: unspecified type Qualified Code(s): D64.9 - Anemia, unspecified Code(s): D64.9 - Anemia, unspecified Status: Acute Assessment and Plan: Likely anemia of chronic disease. (6) Atrial fibrillation with RVR: Code(s): I48.91 - Unspecified atrial fibrillation Status: Acute Assessment and Plan: On IV amiodarone. Continue anticoagulation. Transitioning to oral metoprolol. Appreciate cardiology input. 03/24/2023 interval history, 73-year-old male with a atrial fibrillation RVR seen by cardiology being treated with amiodarone drip and metoprolol was added however patient blood pressure was soft unable to tolerate metoprolol held the medication, patient was seen by Cardiology digoxin was added HR is trending down and blood pressure is improving, patient has significant sacral decubital ulcers and necrosis, was seen by surgery service, patient will need surgical debridement however patient is not a good candidate for the surgery, once cardiac issues have stabilized may consider surgical interventon, on 03/19 patient remained clinically stable however he had developed fever and more somnolent, suspect patient has again developed sepsis from his wound, will collect blood culture and wound culture start the patient, ceftriaxone, 2 g q.day, Flagyl 500 mg q.8 and vancomycin per pharmacy later in the evening patient was transferred to ICU as patient was hypotensive and started on levophed, ct scan abdomen is suspicious pyelonephritis, and now patient is being treated with Meropenem, flagyl and vancomcin, urine and blood culture no growth so far, on 03/21 patient was seen by surgery service had debridement of the wound, wound growing Enterococcus species, today patient blood pressure is improved and Levophed on hold will monitor, however today patient is more alert and oriented, seen by canvas goods fabricator and will monitor patient will be seen clinical reviewer and further recommendation to follow. (7) Diabetes mellitus type 2, uncontrolled: Status: Acute Assessment and Plan: Monitor blood sugar (8) Hypertension: Code(s): I10 - Essential (primary) hypertension Status: Acute Assessment and Plan: Monitor (9) Decubitus ulcer: Code(s): L89.90 - Pressure ulcer of unspecified site, unspecified stage Status: Acute Assessment and Plan: Wound care following the patient Subjective Date/time seen: 03/24/23 17:16 Interval history: On IV amiodarone. Continue anticoagulation. Transitioning to oral metoprolol. Appreciate cardiology input. 03/24/2023 interval history, 73-year-old male with a atrial fibrillation RVR seen by cardiology being treated with amiodarone drip and metoprolol was added however patient blood pressure was soft unable to tolerate metoprolol held the medication, patient was seen by Cardiology digoxin was added HR is trending down and blood pressure is improving, patient has significant sacral decubital ulcers
[2023-03-24] MEDS: INSULIN GLARGINE (*BKC) 100 UNITS/ML 15 UNITS SUB-Q (21:09)
[2023-03-24] MEDS: INSULIN ASPART (*BKC) 100 UNITS/ML SUB-Q (21:11)
[2023-03-24 22:05] LABS: Glucose Point of Care 268 mg/dl (65-105)
[2023-03-24] MEDS: hetaSTARCH 6%/NACL 500 ML 250 ML IV CONT (23:27)
[2023-03-25] VITALS (16 sets, daily range): BP systolic 74–110; BP diastolic 50–66; PULSE 110–118; RESP 12–21; TEMP 36.3–37; O2SAT 92–99
[2023-03-25] MEDS: MEROPENEM 1 GM in SODIUM CHLORIDE 0.9% IV 100 ML 200 ML IVPB ×2 (02:30→15:30)
--- NOTE | 2023-03-25 05:18 | PC.NURSE ---
Patient's PICC line ceased to draw blood. RN unable to administer alteplase due to patient's lack of alternative access and inability to pause amiodarone. Both lab assistants on shift were unable to draw blood. RN will discuss contacting vascular access with day nurse.
[2023-03-25 08:02] LABS: Glucose Point of Care 87 mg/dl (65-105)
[2023-03-25] MEDS: PREGABALIN (*CRX) 75 MG CAPSULE 150 MG PO (08:08)
[2023-03-25] MEDS: PANTOPRAZOLE SODIUM IV 40 MG VIAL IV PUSH ×2 (08:08→20:17)
[2023-03-25] MEDS: MIDODRINE HCL 10 MG TABLET PO ×3 (08:08→17:09)
[2023-03-25] MEDS: metFORMIN HCL XR 500 MG TAB.SR.24H 2000 MG PO (08:09)
[2023-03-25] MEDS: TAMSULOSIN HCL 0.4 MG CAPSULE PO (08:09)
[2023-03-25] MEDS: MONTELUKAST SODIUM 10 MG TABLET PO (08:09)
[2023-03-25] MEDS: EMPAGLIFLOZIN 25 MG TABLET PO (08:09)
[2023-03-25] MEDS: ASPIRIN 81 MG CHEWABLE TABLET PO (08:09)
[2023-03-25] MEDS: PRAVASTATIN SODIUM 20 MG TABLET 40 MG PO (08:09)
[2023-03-25] MEDS: DIGOXIN 250 MCG TABLET PO (08:10)
[2023-03-25 08:25] LABS: Hematocrit 28.3 % (42.0-52.0); Hemoglobin 7.8 g/dL (14.0-18.0); Mean Corpuscular HGB Conc 27.6 g/dl (32-36); Mean Corpuscular Hemoglobin 23.9 pg (26-34); Mean Corpuscular Volume 86.8 fl (80-100); Mean Platelet Volume 10.3 fl (7.4-10.4); Platelet Count Result 201 k/mm3 (150-375); Red Blood Count 3.26 M/mm3 (4.6-6.20); White Blood Count 5.4 K/mm3 (4.5-10.0)
[2023-03-25 08:36] LABS: Alanine Aminotransferase 12 U/L (6-50); Albumin Level 1.7 g/dL (3.5-5.1); Alkaline Phosphatase 205 U/L (38-126); Anion Gap 5 mmol/L (8-16); Aspartate Amino Transferase 27 U/L (17-59); Bilirubin,Total 0.2 mg/dL (0.2-1.3); Blood Urea Nitrogen 21 mg/dL (9-20); Carbon Dioxide 22 mmol/L (22-30); Chloride 107 mmol/L (98-107); Estimated CRCL calculation 124 ml/min; Estimated Glomerular Filt Rate > 60; Glucose 78 mg/dL (65-110); Magnesium 1.8 mg/dL (1.6-2.3); Phosphorus 2.7 mg/dL (2.5-4.5); Potassium 4.1 mmol/L (3.4-5.0); Sodium 134 mmol/L (137-145)
[2023-03-25 08:51] LABS: Vancomycin Trough 21.3 ug/mL (10.0-20.0)
[2023-03-25] MEDS: AMIODARONE 360 MG/D5W 200 ML 360 MG/200 ML BAG 16.67 MG IV CONT ×2 (08:51→23:25)
[2023-03-25] MEDS: ALTEPLASE 2 MG VIAL (CATHFLO) IV PUSH ×2 (09:18→11:40)
[2023-03-25] MEDS: CENTRAL LINE FLUSH 10 ML IV PUSH ×3 (09:23→22:00)
[2023-03-25] MEDS: FINASTERIDE 5 MG TABLET PO (09:25)
--- NOTE | 2023-03-25 09:56 | WPDINTPN ---
Progress Note: A&P Assessment and Plan (1) Polydipsia: Code(s): R63.1 - Polydipsia Status: Acute Assessment and Plan: Patient with polydipsia, increased urine output like 2-4 L daily -this could be causing hypovolemia and hypotension -urine and serum osmolality has been ordered -could be diabetes insipidus -Nephrology has been consulted (2) Septic shock: Code(s): A41.9 - Sepsis, unspecified organism; R65.21 - Severe sepsis with septic shock Status: Acute Assessment and Plan: 03/20/2023: Patient was transferred from the intermediate Unit after being found hypotensive despite 2.5 L of IV fluid bolus. PICC line was inserted and patient was started on Levophed. Patient has minimal urine output on 03/19 despite he drinking lot of fluids and receiving IV fluid bolus. Whyte was flushed, with return of purulent drainage in the urine tubing along with sediments. -OFF LEVOPHED since 03/24 5:00 p.m. -source likely UTI/pyelonephritis, decubitus ulcer, possible cholecystitis as seen on the CT scan below -03/20 CT scan of the abdomen and pelvis showed 1. Bilateral hydronephrosis with urothelial enhancement, suspicious for ascending urinary tract infection and/or pyelonephritis. 2: Distended gallbladder with small amount of surrounding fluid. Cannot exclude cholecystitis. 3:? Right sacral decubitus ulcer. No evidence for osteomyelitis. 4:? Bibasilar airspace disease, most likely dependent atelectasis. Small pleural effusions -continue meropenem, vancomycin (03/20) -03/21: Discontinued Flagyl -03/20 acute kidney injury with creatinine increased to 1.5 from 0.7 on 03/19. -creatinine has normalized -03/19: Blood cultures : No growth x2 so far -03/20: Wound culture showed a mix of organisms -03/20: Urine cultures negative -03/21: Wound culture during debridement growing Enterococcus species, sensitivities pending -continue midodrine -03/25 will give additional IV fluid bolus this morning (3) Acute pyelitis: Code(s): N10 - Acute pyelonephritis Status: Acute Assessment and Plan: Treatment as above 03/20 renal ultrasound: Showed bilateral renal cysts, mild bilateral hydronephrosis (4) Hydronephrosis: Code(s): N13.30 - Unspecified hydronephrosis Status: Acute Assessment and Plan: Urology was following the patient, recommended to keep the Whyte catheter before voiding trial -will continue to flash Whyte at regular intervals (5) Acute renal insufficiency: Code(s): N28.9 - Disorder of kidney and ureter, unspecified Status: Acute Assessment and Plan: Patient with acute kidney injury with creatinine of 1.5 on 03/20 (from 0.7) -adequate fluid resuscitation -lactic acid trending down -patient on see Levophed, will maintain MAP > 65 mmHg for adequate end organ perfusion -continue to monitor renal function, electrolytes and urine output -off all IV fluids, patient drinking adequate amount of IV fluids with good urine -creatinine has normalized (6) Anemia: Qualifiers: Anemia type: unspecified type Qualified Code(s): D64.9 - Anemia, unspecified Code(s): D64.9 - Anemia, unspecified Status: Acute Assessment and Plan: Folic acid and vitamin B12 within normal limit -iron panel showed decreased iron levels, TIBC and% saturation. MCV is normal, likely anemia of chronic disease -stool for Hemoccult is negative - hemoglobin and WBC count has dropped this morning, -03/24: WBC count and hemoglobin have improved and stable without any intervention -appreciate heme/Onc evaluation and recommendations (7) Atrial fibrillation with RVR: Code(s): I48.91 - Unspecified atrial fibrillation Status: Acute Assessment and Plan: Patient with AFib RVR status post cardioversion x2 on admission on 03/08/2022 -patient was placed on metoprolol, digoxin and p.o. amiodarone by Cardiology -in the intermediate Unit robbin
[2023-03-25] MEDS: LACTATED RINGERS 1,000 ML 999 ML IV CONT (10:24)
--- NOTE | 2023-03-25 11:16 | PM.PNGS ---
Progress Note: A&P Assessment and Plan (1) Decubitus ulcer: Code(s): L89.90 - Pressure ulcer of unspecified site, unspecified stage Status: Acute Assessment and Plan: Wound VAC change today. She will need additional debridement of some devitalized tissue probably early next week. Will need taken back to the operating room to do this. That time may consider placement of axial fill allograft to help promote faster healing of the wound. Will need to wound VAC as well. Continue care as indicated. Subjective Subjective Date/Time Seen: 03/25/23 11:16 Interval history: Patient remains in the ICU. If it was stopped last evening but his blood pressures have been well soft today and a been giving him IV fluids. He has had large amount of urine output. He is still on amiodarone drip. Wound VAC on the sacral decubitus wound was changed today. Inspection of wound shows minimal granulation tissue starting to form. Laterally there is a 2x1.5cm area skin which is necrotic and will need to be debrided eventually. Periosteum over the sacrum likely also had to be debrided. Otherwise wound is clean. Exam Skin: Other: 2x1.5cm of skin is now devitalized and necrotic. At the base of the wound the periosteum over the sacrum is also necrotic. There is some based the remaining portion of the wound. Drainage is mostly serous. Objective Data Vital Signs Vital Signs: Vital Signs - 24 hr 03/24/23 11:51 03/24/23 12:00 03/24/23 12:00 Temperature 36.6 C Pulse Rate 118 H 117 H Respiratory Rate 20 Blood Pressure 99/60 L Pulse Oximetry 98 Oxygen Delivery Room Air 03/24/23 14:00 03/24/23 14:00 03/24/23 16:00 Temperature Pulse Rate 117 H 117 H Respiratory Rate 21 H Blood Pressure 94/63 L Pulse Oximetry 97 Oxygen Delivery Room Air 03/24/23 16:00 03/24/23 16:00 03/24/23 17:53 Temperature 36.5 C Pulse Rate 117 H 117 H 116 H Respiratory Rate 18 Blood Pressure 100/56 L Pulse Oximetry 98 Oxygen Delivery 03/24/23 17:53 03/24/23 20:54 03/24/23 20:00 Temperature Pulse Rate 116 H 116 H Respiratory Rate 23 H Blood Pressure 87/55 L 85/58 L Pulse Oximetry 100 Oxygen Delivery Room Air 03/24/23 20:00 03/24/23 20:00 03/24/23 22:00 Temperature 37.0 C Pulse Rate 116 H 116 H 116 H Respiratory Rate 23 H Blood Pressure 93/57 L Pulse Oximetry 99 Oxygen Delivery 03/24/23 22:00 03/25/23 00:00 03/25/23 00:00 Temperature 37.0 C Pulse Rate 116 H 116 H 116 H Respiratory Rate 21 H 18 Blood Pressure 92/56 L 84/57 L Pulse Oximetry 99 96 Oxygen Delivery 03/25/23 00:00 03/25/23 02:00 03/25/23 02:00 Temperature Pulse Rate 110 H 110 H Respiratory Rate 19 Blood Pressure 92/52 L Pulse Oximetry 92 Oxygen Delivery Room Air 03/25/23 04:00 03/25/23 04:00 03/25/23 04:00 Temperature 36.7 C Pulse Rate 116 H 116 H Respiratory Rate 20 Blood Pressure 91/58 L Pulse Oximetry 99 Oxygen Delivery Room Air 03/25/23 06:00 03/25/23 06:00 03/25/23 08:10 Temperature Pulse Rate 118 H 118 H 117 H Respiratory Rate 16 Blood Pressure 86/58 L Pulse Oximetry 97 Oxygen Delivery 03/25/23 08:00 03/25/23 08:51 03/25/23 08:51 Temperature 36.5 C Pulse Rate 117 H 118 H 118 H Respiratory Rate 12 Blood Pressure 95/57 L 110/60 110/60 Pulse Oximetry 96 Oxygen Delivery 03/25/23 08:00 03/25/23 08:00 03/25/23 10:00 Temperature Pulse Rate 117 H 116 H Respiratory Rate Blood Pressure Pulse Oximetry 96 Oxygen Delivery Room Air 03/25/23 10:00 Temperature Pulse Rate 116 H Respiratory Rate 20 Blood Pressure 85/51 L Pulse Oximetry 98 Oxygen Delivery Intake/Output Intake/Output: Intake & Output 03/22/23 03/23/23 03/24/23 03/25/23 23:59 23:59 23:59 23:59 Intake Total 6000 3150 2300 1020 Output Total 3150 3700 1646 1877 Balance 2850 -550 -1475 -855 Meds/Results Medications:
[2023-03-25 12:06] LABS: Glucose Point of Care 104 mg/dl (65-105)
--- NOTE | 2023-03-25 12:27 | PCFNICU ---
ICU Rounding Note: Pt current nutrition is Diabetic consistent carb diet. 75-100% intakes. 240 ml of Reinier. Reinier BID for additional 90 kcal and 2.5 g protein for wound healing. glucerna BID for additional 220 kcal and 10 g protein each. Nutrition recommendation: Continue with current orders and supplements. Last recorded weight is 87 kg. +9.4 kg since admission Bowel Motility: +1 BM 7.27.23 Labs Reviewed: Hgb 7.8, Hct 28.3, Alb 1.7, Na 134, BUN 21, Cre 0.5 Meds Noted: Eliquis, protonix, Lyrica, Lantus Skin: Sacral pressure injury s/p debridement. Wound vac in place Additional Notes: intakes are good on current. Continue with current care plan. Agree with orders Following daily in ICU rounds. Will montior weight, labs, skin, oral intake every 7 days. .
--- NOTE | 2023-03-25 12:55 | PM.CNNEP ---
Assessment and Plan Assessment and plan (1) Polydipsia: Code(s): R63.1 - Polydipsia Status: Acute Assessment and Plan: associated with significant urine output seems to have 2 - 4L of UOP daily this may be partly causing/contributing to issues with hypovolemia and hypotension concern is this could be diabetes insipidus serum/urine osmolality pending consider trial dose of DDAVP (?) and assess response (2) Septic shock: Code(s): A41.9 - Sepsis, unspecified organism; R65.21 - Severe sepsis with septic shock Status: Acute Assessment and Plan: clinically better off vasopressor therapy at this time culture data noted on antibiotic therapy (wound cultures with Enterococcus) on midodrine and PRN IVF boluses follow trend of hemodynamics (3) Acute pyelitis: Code(s): N10 - Acute pyelonephritis Status: Acute Assessment and Plan: CT of A/P (on 03/20) noted: Bilateral hydronephrosis with urothelial enhancement, suspicious for ascending urinary tract infection and/or pyelonephritis however, culture data without growth (blood and urine) to date Urologly recommendations noted: keep the Mcgovern catheter before voiding trial continue to flush mcgovern to ensure patency (4) Anemia: Qualifiers: Anemia type: unspecified type Qualified Code(s): D64.9 - Anemia, unspecified Code(s): D64.9 - Anemia, unspecified Status: Acute Assessment and Plan: suspect anemia of chronic disease iron studies noted suspect acute illness playing a role as well follow trend of H/H PRBC transfusion per protocol (5) Atrial fibrillation with rapid ventricular response: Code(s): I48.91 - Unspecified atrial fibrillation Status: Acute Assessment and Plan: s/p cardioversion x 2 during this hospitalization on amiodarone gtt on lovenox for anticoagulation Cardiololgy following (6) Decubitus ulcer: Code(s): L89.90 - Pressure ulcer of unspecified site, unspecified stage Status: Acute Assessment and Plan: General Surgery following debridement and wound vac placement on 03/21 on antibiotics local wound care likely further debridement once more stable (7) Diabetes mellitus type 2, uncontrolled: Status: Chronic Assessment and Plan: follow accu-cheks glycemic control per hospitalists/mechanical design engineer facilities I will continue to follow the patient with you while he remains hospitalized make further recommendations during his hospital course Thank you for allowing me to participate in care this patient. History of Present Illness Reason for Consult Consult date: 03/25/23 Reason for consult: Other (Diabetes Insipidus[?]) Chief Complaint Chief complaint: Septic Shock,UTI/Pyelitis,AFIB w/RVR,ANTONY,Decub Ulc History of Present Illness Narrative: A great deal of the history that I have obtained is from review of the electronic medical record as well as discussion with the physicians/nurses involved in the patient's care as the patient has a difficult time relating all the events that led to his current status. The patient is a 73-year-old male with a past medical history as outlined below who presented to [facility] Emergency Room earlier this month with complaints of generalized weakness and ?not feeling well. On his presentation to the emergency room, he apparently had altered mental status but was also quite hypotensive. He received aggressive IV fluid resuscitation but his blood pressure failed to respond and so a central line was placed he was started on vasopressor therapy. Further evaluation noted him to be in AFib with RVR with heart rates up into the 190s. Given his unstable AFib, he was cardioverted x2. On initial presentation, he had evidence of high potassium levels in conjunction with acute kidney injury. His urinalysis was highly suggestive of urinary tract infection and a CT scan
--- NOTE | 2023-03-25 12:55 | P.CONNP_ITS ---
Assessment and Plan Assessment and plan (1) Polydipsia: Code(s): R63.1 - Polydipsia Status: Acute Assessment and Plan: * associated with significant urine output * seems to have 2 - 4L of UOP daily * this may be partly causing/contributing to issues with hypovolemia and hypotension * concern is this could be diabetes insipidus * serum/urine osmolality pending * consider trial dose of DDAVP (?) and assess response (2) Septic shock: Code(s): A41.9 - Sepsis, unspecified organism; R65.21 - Severe sepsis with septic shock Status: Acute Assessment and Plan: * clinically better * off vasopressor therapy at this time * culture data noted * on antibiotic therapy (wound cultures with Enterococcus) * on midodrine and PRN IVF boluses * follow trend of hemodynamics (3) Acute pyelitis: Code(s): N10 - Acute pyelonephritis Status: Acute Assessment and Plan: * CT of A/P (on 03/20) noted: Bilateral hydronephrosis with urothelial enhancement, suspicious for ascending urinary tract infection and/or pyelonephritis * however, culture data without growth (blood and urine) to date * Urologly recommendations noted: * keep the Mcgovern catheter before voiding trial * continue to flush mcgovern to ensure patency (4) Anemia: Qualifiers: Anemia type: unspecified type Qualified Code(s): D64.9 - Anemia, uns pecified Code(s): D64.9 - Anemia, unspecified Status: Acute Assessment and Plan: * suspect anemia of chronic disease * iron studies noted * suspect acute illness playing a role as well * follow trend of H/H * PRBC transfusion per protocol (5) Atrial fibrillation with rapid ventricular response: Code(s): I48.91 - Unspecified atrial fibrillation Status: Acute Assessment and Plan: * s/p cardioversion x 2 during this hospitalization * on amiodarone gtt * on lovenox for anticoagulation * Cardiololgy following (6) Decubitus ulcer: Code(s): L89.90 - Pressure ulcer of unspecified site, unspecified stage Status: Acute Assessment and Plan: * General Surgery following * debridement and wound vac placement on 03/21 * on antibiotics * local wound care * likely further debridement once more stable (7) Diabetes mellitus type 2, uncontrolled: Status: Chronic Assessment and Plan: * follow accu-cheks * glycemic control per hospitalists/regional vice president life sales I will continue to follow the patient with you while he remains hospitalized make further recommendations during his hospital course Thank you for allowing me to participate in care this patient. History of Present Illness Reason for Consult Consult date: 03/25/23 Reason for consult: Other (Diabetes Insipidus[?]) Chief Complaint Chief complaint: Septic Shock,UTI/Pyelitis,AFIB w/RVR,ANTONY,Decub Ulc History of Present Illness Narrative: A great deal of the history that I have obtained is from review of the [facility] as well as discussion with the physicians/nurses involved in the patient's care as the patient has a difficult time relating all the events that led to his current status. The patient is a 73-year-old male with a past medical history as outlined below who presented to [facility] Emergency Room earlier this month with complaints of generalized weakness and ?not feeling well. On his presentation to the emergency room, he apparently had altered mental status but was also quite hypotensive. He received aggressive IV f
[2023-03-25] MEDS: ENOXAPARIN 40 MG/0.4 ML SYRINGE SUB-Q (12:58)
[2023-03-25] MEDS: DESMOPRESSIN ACETATE 4 MCG/ML AMP 1 MCG IV PUSH (13:00)
--- NOTE | 2023-03-25 13:03 | ECG_ITS ---
Measurements Intervals [place] Rate: 113 P: MI: 0 QRS: 25 QRSD: 76 T: 96 QT: 191 QTc: 263 Interpretive Statements ATRIAL FLUTTER/TACHYCARDIA WITH RAPID VENTRICULAR RESPONSE LOW QRS VOLTAGE- DIFFUSE LEADS BORDERLINE ST-T WAVE ABNORMALITY- ANTEROLAT/HIGH LAT LEADS ABNORMAL ECG COMPARED TO ECG 03/12/2023 20:05:50 HEART RATE HAS DECREASED ST (T WAVE) DEVIATION NOW PRESENT Electronically Signed On 03-25-2023 19:58:51 CDT by Larry Juan D.O.
[2023-03-25 15:10] LABS: Chloride Rand Ur 37 mmol/L (32-290); Chloride/Creatinine Rand Ur 168 (23-275); Creatinine Random Urine 22 mg/dL (20-320)
--- NOTE | 2023-03-25 15:39 | WPDPN ---
Progress Note: A&P Assessment and Plan (1) Septic shock: Code(s): A41.9 - Sepsis, unspecified organism; R65.21 - Severe sepsis with septic shock Status: Acute Assessment and Plan: Resolved (2) Acute pyelitis: Code(s): N10 - Acute pyelonephritis Status: Acute Assessment and Plan: Continue Omnicef. Last day March 18, 2023. (3) Hydronephrosis: Code(s): N13.30 - Unspecified hydronephrosis Status: Acute Assessment and Plan: Appreciate urology evaluation recommendation, continue tamsulosin and oxybutynin. And finasteride. -urinary catheter was placed per Urology for urinary retention Will likely need follow-up with Urology as an outpatient for management of Whyte (4) Acute renal insufficiency: Code(s): N28.9 - Disorder of kidney and ureter, unspecified Status: Acute Assessment and Plan: Monitor kidney function. Monitor electrolytes. (5) Anemia: Qualifiers: Anemia type: unspecified type Qualified Code(s): D64.9 - Anemia, unspecified Code(s): D64.9 - Anemia, unspecified Status: Acute Assessment and Plan: Likely anemia of chronic disease. (6) Atrial fibrillation with RVR: Code(s): I48.91 - Unspecified atrial fibrillation Status: Acute Assessment and Plan: On IV amiodarone. Continue anticoagulation. Transitioning to oral metoprolol. Appreciate cardiology input. 03/25/2023 interval history, 73-year-old male with a atrial fibrillation RVR seen by cardiology being treated with amiodarone drip and metoprolol was added however patient blood pressure was soft unable to tolerate metoprolol held the medication, patient was seen by Cardiology digoxin was added HR is trending down and blood pressure is improving, patient has significant sacral decubital ulcers and necrosis, was seen by surgery service, patient will need surgical debridement however patient is not a good candidate for the surgery, once cardiac issues have stabilized may consider surgical interventon, on 03/19 patient remained clinically stable however he had developed fever and more somnolent, suspect patient has again developed sepsis from his wound, will collect blood culture and wound culture start the patient, ceftriaxone, 2 g q.day, Flagyl 500 mg q.8 and vancomycin per pharmacy later in the evening patient was transferred to ICU as patient was hypotensive and started on levophed, ct scan abdomen is suspicious pyelonephritis, and now patient is being treated with Meropenem, flagyl and vancomcin, urine and blood culture no growth so far, on 03/21 patient was seen by surgery service had debridement of the wound, wound growing Enterococcus species, on 03/24 patient blood pressure was improving and Levophed was on hold however patient is requiring Levophed as his BP is still soft, however today patient is more alert and oriented, his duaghter is present and gave updates, seen by retail planner and will monitor patient will be seen recreation manager and further recommendation to follow. (7) Diabetes mellitus type 2, uncontrolled: Status: Acute Assessment and Plan: Monitor blood sugar (8) Hypertension: Code(s): I10 - Essential (primary) hypertension Status: Acute Assessment and Plan: Monitor (9) Decubitus ulcer: Code(s): L89.90 - Pressure ulcer of unspecified site, unspecified stage Status: Acute Assessment and Plan: Wound care following the patient Subjective Date/time seen: 03/25/23 15:39 Interval history: 03/25/2023 interval history, 73-year-old male with a atrial fibrillation RVR seen by cardiology being treated with amiodarone drip and metoprolol was added however patient blood pressure was soft unable to tolerate metoprolol held the medication, patient was seen by Cardiology digoxin was added HR is trending down and blood pressure is improving, patient has significant sacral decubital ulcers and necrosis,
[2023-03-25] MEDS: AMPICILLIN SULB 3 GM/NS 100 ML 3 GM/100 ML VIAL IVPB ×2 (17:09→21:51)
[2023-03-25 17:21] LABS: Glucose Point of Care 112 mg/dl (65-105)
[2023-03-25 20:16] LABS: Glucose Point of Care 137 mg/dl (65-105)
[2023-03-25] MEDS: INSULIN GLARGINE (*BKC) 100 UNITS/ML 15 UNITS SUB-Q (20:18)
[2023-03-25] MEDS: oxyCODONE/ACETAMINOPHEN (*CRX) 5-325 MG TABLET 1 TABLET PO (21:50)
[2023-03-25] MEDS: TOLNAFTATE 1% POWDER 45 GM BTL 1 APPLIC TOPICAL (21:50)
[2023-03-25] MEDS: ALBUMIN HUMAN 25% 25 GM/100 ML 100 ML IVPB (23:54)
[2023-03-26] VITALS (23 sets, daily range): BP systolic 78–123; BP diastolic 46–75; PULSE 74–122; RESP 13–22; TEMP 36.2–36.9; O2SAT 93–99
[2023-03-26] MEDS: NOREPINEPHRINE 8 MG/D5W 250 ML 8 MG/250 ML BAG 9.38 MG IV CONT (01:02)
[2023-03-26] MEDS: AMPICILLIN SULB 3 GM/NS 100 ML 3 GM/100 ML VIAL IVPB ×4 (04:16→22:04)
[2023-03-26 05:10] LABS: Basophils Percent Auto 0.4 % (0.2-1.2); Eosinophils Absolute Auto 0.1 K/mm3 (0-0.3); Eosinophils Percent Auto 2.1 % (0-4.4); Hematocrit 26.9 % (42.0-52.0); Hemoglobin 7.8 g/dL (14.0-18.0); Immature Granulocyte Percent A 3.5 % (0-0.5); Lymphocytes Absolute Auto 1.21 K/mm3 (0.9-3.2); Lymphocytes Percent Auto 21.3 % (18.3-44.2); Mean Corpuscular Hemoglobin 24.3 pg (26-34); Mean Corpuscular Volume 83.8 fl (80-100); Mean Platelet Volume 10.4 fl (7.4-10.4); Monocytes Absolute Auto 0.3 K/mm3 (0.1-0.6); Monocytes Percent Auto 4.7 % (2.6-8.5); Neutrophils Absolute Auto 3.9 K/mm3 (1.3-6.7); Platelet Count Result 233 k/mm3 (150-375); Red Blood Count 3.21 M/mm3 (4.6-6.20); Red Cell Distribution Width 19.3 % (11.5-14.5); White Blood Count 5.7 K/mm3 (4.5-10.0)
[2023-03-26 05:18] LABS: Alanine Aminotransferase 16 U/L (6-50); Albumin Level 1.8 g/dL (3.5-5.1); Alkaline Phosphatase 241 U/L (38-126); Anion Gap -1 mmol/L (8-16); Aspartate Amino Transferase 39 U/L (17-59); Bilirubin,Total 0.3 mg/dL (0.2-1.3); Blood Urea Nitrogen 22 mg/dL (9-20); Calcium 7.3 mg/dL (8.4-10.2); Carbon Dioxide 27 mmol/L (22-30); Chloride 104 mmol/L (98-107); Estimated CRCL calculation 105 ml/min; Estimated Glomerular Filt Rate > 60; Glucose 154 mg/dL (65-110); Magnesium 1.6 mg/dL (1.6-2.3); Potassium 3.9 mmol/L (3.4-5.0); Sodium 130 mmol/L (137-145)
[2023-03-26 05:43] LABS: Platelet Estimate Adequate (Adequate)
[2023-03-26 05:44] LABS: Anisocytosis 1+ (NORMAL); Schistocytes Rare (NORMAL)
[2023-03-26 05:45] LABS: Tear Drop Cells 1+ (NORMAL)
[2023-03-26] MEDS: CENTRAL LINE FLUSH 10 ML IV PUSH ×3 (06:32→20:18)
[2023-03-26] MEDS: PANTOPRAZOLE SODIUM IV 40 MG VIAL IV PUSH ×2 (08:24→20:16)
[2023-03-26] MEDS: ENOXAPARIN 40 MG/0.4 ML SYRINGE SUB-Q (08:24)
[2023-03-26] MEDS: PREGABALIN (*CRX) 75 MG CAPSULE 150 MG PO (08:25)
[2023-03-26] MEDS: metFORMIN HCL XR 500 MG TAB.SR.24H 2000 MG PO (08:25)
[2023-03-26] MEDS: TAMSULOSIN HCL 0.4 MG CAPSULE PO (08:25)
[2023-03-26] MEDS: MONTELUKAST SODIUM 10 MG TABLET PO (08:26)
[2023-03-26] MEDS: PRAVASTATIN SODIUM 20 MG TABLET 40 MG PO (08:26)
[2023-03-26] MEDS: EMPAGLIFLOZIN 25 MG TABLET PO (08:26)
[2023-03-26] MEDS: ASPIRIN 81 MG CHEWABLE TABLET PO (08:26)
[2023-03-26] MEDS: DIGOXIN 250 MCG TABLET PO (08:26)
[2023-03-26] MEDS: MIDODRINE HCL 10 MG TABLET PO ×3 (08:27→17:06)
[2023-03-26] MEDS: TOLNAFTATE 1% POWDER 45 GM BTL 1 APPLIC TOPICAL ×2 (08:27→20:18)
[2023-03-26] MEDS: DESMOPRESSIN ACETATE 4 MCG/ML AMP 2 MCG IV PUSH (08:28)
[2023-03-26] MEDS: CALCIUM GLUC 2,000 MG/NS 100ML 2,000 MG/100 ML BAG 100 MG IVPB (08:28)
[2023-03-26 08:46] LABS: Glucose Point of Care 148 mg/dl (65-105)
[2023-03-26] MEDS: FINASTERIDE 5 MG TABLET PO (09:00)
--- NOTE | 2023-03-26 11:20 | PCOTNOTE ---
Attempted OT evaluation. Pt refused without reason Will follow. RN aware.
--- NOTE | 2023-03-26 12:05 | PM.PNNEP ---
Progress Note: A&P Assessment and Plan (1) Polydipsia: Code(s): R63.1 - Polydipsia Status: Acute Assessment and Plan: associated with significant urine output seems to have 2 - 4L of UOP daily this may be partly causing/contributing to issues with hypovolemia and hypotension concern is this could be diabetes insipidus serum/urine osmolality pending however, sodium low (as opposed to elevated) but he is also getting significant IV fluids in the from of drips/medications along with oral intake trial dose of DDAVP today and assess response (2) Septic shock: Code(s): A41.9 - Sepsis, unspecified organism; R65.21 - Severe sepsis with septic shock Status: Acute Assessment and Plan: clinically better back on vasopressor this time -- weaning again culture data noted on antibiotic therapy (wound cultures with Enterococcus) on midodrine and PRN IVF boluses follow trend of hemodynamics (3) Acute pyelitis: Code(s): N10 - Acute pyelonephritis Status: Acute Assessment and Plan: CT of A/P (on 03/20) noted: Bilateral hydronephrosis with urothelial enhancement, suspicious for ascending urinary tract infection and/or pyelonephritis however, culture data without growth (blood and urine) to date Urologly recommendations noted: keep the Mcgovern catheter before voiding trial continue to flush mcgovern to ensure patency (4) Anemia: Qualifiers: Anemia type: unspecified type Qualified Code(s): D64.9 - Anemia, unspecified Code(s): D64.9 - Anemia, unspecified Status: Acute Assessment and Plan: suspect anemia of chronic disease iron studies noted suspect acute illness playing a role as well follow trend of H/H PRBC transfusion per protocol (5) Atrial fibrillation with rapid ventricular response: Code(s): I48.91 - Unspecified atrial fibrillation Status: Acute Assessment and Plan: s/p cardioversion x 2 during this hospitalization on amiodarone and digoxin as well as metoprolol on lovenox for anticoagulation Cardiology following (6) Decubitus ulcer: Code(s): L89.90 - Pressure ulcer of unspecified site, unspecified stage Status: Acute Assessment and Plan: General Surgery following debridement and wound vac placement on 03/21 on antibiotics local wound care likely further debridement once more stable (7) Diabetes mellitus type 2, uncontrolled: Status: Chronic Assessment and Plan: follow accu-cheks glycemic control per hospitalists/benefits representative Will continue to follow. Subjective Date/time seen: 03/26/23 12:05 Interval history: Follow-up for polyuria. Restarted on vasopressor therapy overnight due to hypotension/dropping MAP; continues to have significant UOP in the last 24 - 48 hours as noted by I/Os but he seems to drink alot in general as well; no other acute complaints. Exam Narrative: General: elderly male in NAD Heart: tachycardic, normal S1 and S2; no rub Lungs: clear anteriorly Abdomen: soft, nontender, nondistended, positive bowel sounds Extremities: no cyanosis or clubbing; trace - 1+ edema in UEs and LEs Skin: chronic venous stasis changes Objective Data Vital Signs Vital Signs: Vital Signs Temp Pulse Resp BP Pulse Ox O2 Del Method FiO2 03/26/23 12:00 97.1 F L 108 H 17 113/70 97 03/26/23 10:00 120 H 19 123/75 97 03/26/23 10:00 96 03/26/23 08:00 84 03/26/23 08:00 121 H 102/53 L 03/26/23 08:00 121 H 102/53 L 03/26/23 08:26 118 H 03/26/23 08:00 97.8 F 119 H 18 108/54 L 97 03/26/23 06:00 81 19 105/52 L 95 03/26/23 06:00 77 03/26/23 05:16 87 89/49 L 03/26/23 05:00 81 119/46 L 03/26/23 04:00 85 106/69 03/26/23 04:00 90 03/26/23 04:00 77 19 99 Room Air 98 03/26/23 04:00 97.8 F 77 19 106/69 99
--- NOTE | 2023-03-26 12:05 | P.PNNP_ITS ---
Progress Note: A&P Assessment and Plan (1) Polydipsia: Code(s): R63.1 - Polydipsia Status: Acute Assessment and Plan: * associated with significant urine output * seems to have 2 - 4L of UOP daily * this may be partly causing/contributing to issues with hypovolemia and hypotension * concern is this could be diabetes insipidus * serum/urine osmolality pending * however, sodium low (as opposed to elevated) * but he is also getting significant IV fluids in the from of drips/medications along with oral intake * trial dose of DDAVP today and assess response (2) Septic shock: Code(s): A41.9 - Sepsis, unspecified organism; R65.21 - Severe sepsis with septic shock Status: Acute Assessment and Plan: * clinically better * back on vasopressor this time -- weaning again * culture data noted * on antibiotic therapy (wound cultures with Enterococcus) * on midodrine and PRN IVF boluses * follow trend of hemodynamics (3) Acute pyelitis: Code(s): N10 - Acute pyelonephritis Status: Acute Assessment and Plan: * CT of A/P (on 03/20) noted: Bilateral hydronephrosis with urothelial enhancement, suspicious for ascending urinary tract infection and/or pyelonephritis * however, culture data without growth (blood and urine) to date * Urologly recommendations noted: * keep the Mcgovern catheter before voiding trial * continue to flush mcgovern to ensure patency (4) Anemia: Qualifiers: Anemia type: unspecified type Qualified Code(s): D64.9 - Anemia, unspecified Code(s): D64.9 - Anemia, unspecified Status: Acute Assessment and Plan: * suspect anemia of chronic disease * iron studies noted * suspect acute illness playing a role as well * follow trend of H/H * PRBC transfusion per protocol (5) Atrial fibrillation with rapid ventricular response: Code(s): I48.91 - Unspecified atrial fibrillation Status: Acute Assessment and Plan: * s/p cardioversion x 2 during this hospitalization * on amiodarone and digoxin as well as metoprolol * on lovenox for anticoagulation * Cardiology following (6) Decubitus ulcer: Code(s): L89.90 - Pressure ulcer of unspecified site, unspecified stage Status: Acute Assessment and Plan: * General Surgery following * debridement and wound vac placement on 03/21 * on antibiotics * local wound care * likely further debridement once more stable (7) Diabetes mellitus type 2, uncontrolled: Status: Chronic Assessment and Plan: * follow accu-cheks * glycemic control per hospitalists/healthcare consulting manager Will continue to follow. Subjective Date/time seen: 03/26/23 12:05 Interval history: Follow-up for polyuria. Restarted on vasopressor therapy overnight due to hypotension/dropping MAP; continues to have significant UOP in the last 24 - 48 hours as noted by I/Os but he seems to drink alot in general as well; no other acute complaints. Exam Narrative: General: elderly male in NAD Heart: tachycardic, normal S1 and S2; no rub Lungs: clear anteriorly Abdomen: soft, nontender, nondistended, positive bowel sounds Extremities: no cyanosis or clubbing; trace - 1+ edema in UEs and LEs Skin: chronic venous stasis changes Objective Data Vital Signs Vital Signs: Vital Signs Temp Pulse Resp BP Pulse
--- NOTE | 2023-03-26 12:55 | WPDINTPN ---
Progress Note: A&P Assessment and Plan (1) Polydipsia: Code(s): R63.1 - Polydipsia Status: Acute Assessment and Plan: Patient with polydipsia, increased urine output like 2-4 L daily -this could be causing hypovolemia and hypotension -urine and serum osmolality pending -could be diabetes insipidus -Nephrology has been consulted -patient was given DDAVP 1 mcg on 03/25/2023 with no benefit -will repeat DDAVP 2 mcg today, okay with Nephrology (2) Septic shock: Code(s): A41.9 - Sepsis, unspecified organism; R65.21 - Severe sepsis with septic shock Status: Acute Assessment and Plan: 03/20/2023: Patient was transferred from the intermediate Unit after being found hypotensive despite 2.5 L of IV fluid bolus. PICC line was inserted and patient was started on Levophed. Patient has minimal urine output on 03/19 despite he drinking lot of fluids and receiving IV fluid bolus. Whyte was flushed, with return of purulent drainage in the urine tubing along with sediments. -OFF LEVOPHED since 03/24 5:00 p.m. Restarted on levophed 03/25 night -source likely UTI/pyelonephritis, decubitus ulcer, possible cholecystitis as seen on the CT scan below -03/20 CT scan of the abdomen and pelvis showed 1. Bilateral hydronephrosis with urothelial enhancement, suspicious for ascending urinary tract infection and/or pyelonephritis. 2: Distended gallbladder with small amount of surrounding fluid. Cannot exclude cholecystitis. 3:? Right sacral decubitus ulcer. No evidence for osteomyelitis. 4:? Bibasilar airspace disease, most likely dependent atelectasis. Small pleural effusions -03/21: Discontinued Flagyl -03/20 acute kidney injury with creatinine increased to 1.5 from 0.7 on 03/19. -creatinine has normalized -03/19: Blood cultures : No growth x2 so far -03/20: Wound culture showed a mix of organisms -03/20: Urine cultures negative -03/21: Wound culture during debridement growing vancomycin resistant Enterococcus faecalis, sensitive to ampicillin - discontinue meropenem and vancomycin Started Ampicillin (03/25) -continue midodrine (3) Acute pyelitis: Code(s): N10 - Acute pyelonephritis Status: Acute Assessment and Plan: Treatment as above 03/20 renal ultrasound: Showed bilateral renal cysts, mild bilateral hydronephrosis (4) Hydronephrosis: Code(s): N13.30 - Unspecified hydronephrosis Status: Acute Assessment and Plan: Urology was following the patient, recommended to keep the Whyte catheter before voiding trial -will continue to flash Whyte at regular intervals (5) Acute renal insufficiency: Code(s): N28.9 - Disorder of kidney and ureter, unspecified Status: Acute Assessment and Plan: Patient with acute kidney injury with creatinine of 1.5 on 03/20 (from 0.7) -adequate fluid resuscitation -lactic acid trending down -patient on see Levophed, will maintain MAP > 65 mmHg for adequate end organ perfusion -continue to monitor renal function, electrolytes and urine output -off all IV fluids, patient drinking adequate amount of IV fluids with good urine -creatinine has normalized (6) Anemia: Qualifiers: Anemia type: unspecified type Qualified Code(s): D64.9 - Anemia, unspecified Code(s): D64.9 - Anemia, unspecified Status: Acute Assessment and Plan: Folic acid and vitamin B12 within normal limit -iron panel showed decreased iron levels, TIBC and% saturation. MCV is normal, likely anemia of chronic disease -stool for Hemoccult is negative - hemoglobin and WBC count has dropped this morning, -03/24: WBC count and hemoglobin have improved and stable without any intervention -appreciate heme/Onc evaluation and recommendations (7) Atrial fibrillation with RVR: Code(s): I48.91 - Unspecified atrial fibrillation Status: Acute Assessment and Plan: Patient with AFib RVR status post cardiover
[2023-03-26 13:10] LABS: Glucose Point of Care 168 mg/dl (65-105)
--- NOTE | 2023-03-26 13:12 | PCPTNOTE ---
Attempted PT evaluation. Pt refused. Will follow. RN aware.
--- NOTE | 2023-03-26 15:25 | PM.IMPN ---
Progress Note: A&P Assessment and Plan (1) Septic shock: Code(s): A41.9 - Sepsis, unspecified organism; R65.21 - Severe sepsis with septic shock Status: Acute Assessment and Plan: Resolved (2) Acute pyelitis: Code(s): N10 - Acute pyelonephritis Status: Acute Assessment and Plan: Continue Omnicef. Last day March 18, 2023. (3) Hydronephrosis: Code(s): N13.30 - Unspecified hydronephrosis Status: Acute Assessment and Plan: Appreciate urology evaluation recommendation, continue tamsulosin and oxybutynin. And finasteride. -urinary catheter was placed per Urology for urinary retention Will likely need follow-up with Urology as an outpatient for management of Whyte (4) Acute renal insufficiency: Code(s): N28.9 - Disorder of kidney and ureter, unspecified Status: Acute Assessment and Plan: Monitor kidney function. Monitor electrolytes. (5) Anemia: Qualifiers: Anemia type: unspecified type Qualified Code(s): D64.9 - Anemia, unspecified Code(s): D64.9 - Anemia, unspecified Status: Acute Assessment and Plan: Likely anemia of chronic disease. (6) Atrial fibrillation with RVR: Code(s): I48.91 - Unspecified atrial fibrillation Status: Acute Assessment and Plan: On IV amiodarone. Continue anticoagulation. Transitioning to oral metoprolol. Appreciate cardiology input. 03/25/2023 interval history, 73-year-old male with a atrial fibrillation RVR seen by cardiology being treated with amiodarone drip and metoprolol was added however patient blood pressure was soft unable to tolerate metoprolol held the medication, patient was seen by Cardiology digoxin was added HR is trending down and blood pressure is improving, patient has significant sacral decubital ulcers and necrosis, was seen by surgery service, patient will need surgical debridement however patient is not a good candidate for the surgery, once cardiac issues have stabilized may consider surgical interventon, on 03/19 patient remained clinically stable however he had developed fever and more somnolent, suspect patient has again developed sepsis from his wound, will collect blood culture and wound culture start the patient, ceftriaxone, 2 g q.day, Flagyl 500 mg q.8 and vancomycin per pharmacy later in the evening patient was transferred to ICU as patient was hypotensive and started on levophed, ct scan abdomen is suspicious pyelonephritis, and now patient is being treated with Meropenem, flagyl and vancomcin, urine and blood culture no growth so far, on 03/21 patient was seen by surgery service had debridement of the wound, wound growing Enterococcus species, on 03/24 patient blood pressure was improving and Levophed was on hold however patient is requiring Levophed as his BP is still soft, however today patient is more alert and oriented, his duaghter is present and gave updates, seen by technical support intern and will monitor patient will be seen construction management assistant and further recommendation to follow. 03/26/2023: 73-year-old male with a atrial fibrillation RVR seen by cardiology being treated with amiodarone drip and metoprolol was added however patient blood pressure was soft unable to tolerate metoprolol held the medication, patient was seen by Cardiology digoxin was added HR is trending down and blood pressure is improving, patient has significant sacral decubital ulcers and necrosis, was seen by surgery service, patient will need surgical debridement however patient is not a good candidate for the surgery, once cardiac issues have stabilized may consider surgical interventon, on 03/19 patient remained clinically stable however he had developed fever and more somnolent, suspect patient has again developed sepsis from his wound, will collect blood culture and wound culture start the patient, ceftriaxone, 2 g q.day, Flagyl 500 mg q.8 and vancomycin per pharmacy later in the evening patient was tra
[2023-03-26 17:22] LABS: Glucose Point of Care 148 mg/dl (65-105)
[2023-03-26] MEDS: INSULIN GLARGINE (*BKC) 100 UNITS/ML 15 UNITS SUB-Q (20:16)
[2023-03-26] MEDS: AMIODARONE 360 MG/D5W 200 ML 360 MG/200 ML BAG 16.67 MG IV CONT (20:17)
[2023-03-26 20:54] LABS: Glucose Point of Care 172 mg/dl (65-105)
[2023-03-27] VITALS (19 sets, daily range): BP systolic 91–108; BP diastolic 51–64; PULSE 96–120; RESP 15–21; TEMP 36.1–36.8; O2SAT 91–100
[2023-03-27] MEDS: AMPICILLIN SULB 3 GM/NS 100 ML 3 GM/100 ML VIAL IVPB ×4 (03:23→21:40)
[2023-03-27] MEDS: CENTRAL LINE FLUSH 10 ML IV PUSH ×3 (03:24→21:10)
[2023-03-27 05:42] LABS: Basophils Percent Auto 0.4 % (0.2-1.2); Eosinophils Absolute Auto 0.1 K/mm3 (0-0.3); Eosinophils Percent Auto 1.9 % (0-4.4); Hematocrit 28.9 % (42.0-52.0); Hemoglobin 8.1 g/dL (14.0-18.0); Immature Granulocyte Absolute 0.15 K/mm3 (0.00-0.031); Immature Granulocyte Percent A 2.9 % (0-0.5); Lymphocytes Absolute Auto 1.42 K/mm3 (0.9-3.2); Mean Corpuscular Hemoglobin 23.7 pg (26-34); Mean Corpuscular Volume 84.5 fl (80-100); Mean Platelet Volume 10.5 fl (7.4-10.4); Monocytes Absolute Auto 0.4 K/mm3 (0.1-0.6); Monocytes Percent Auto 6.7 % (2.6-8.5); Neutrophils Absolute Auto 3.2 K/mm3 (1.3-6.7); Neutrophils Percent Auto 61.1 % (45.5-73.1); Platelet Count Result 258 k/mm3 (150-375); Red Blood Count 3.42 M/mm3 (4.6-6.20); Red Cell Distribution Width 19.9 % (11.5-14.5); White Blood Count 5.3 K/mm3 (4.5-10.0)
[2023-03-27 05:54] LABS: Lactic Acid Reflex 1.9 mmol/L (0.7-2.0)
[2023-03-27 05:57] LABS: Alanine Aminotransferase 19 U/L (6-50); Albumin Level 1.8 g/dL (3.5-5.1); Alkaline Phosphatase 275 U/L (38-126); Anion Gap 2 mmol/L (8-16); Aspartate Amino Transferase 38 U/L (17-59); Bilirubin,Total 0.3 mg/dL (0.2-1.3); Blood Urea Nitrogen 24 mg/dL (9-20); Calcium 7.7 mg/dL (8.4-10.2); Carbon Dioxide 28 mmol/L (22-30); Chloride 105 mmol/L (98-107); Estimated CRCL calculation 92 ml/min; Estimated Glomerular Filt Rate > 60; Glucose 154 mg/dL (65-110); Magnesium 1.6 mg/dL (1.6-2.3); Phosphorus 3.6 mg/dL (2.5-4.5); Sodium 135 mmol/L (137-145)
[2023-03-27 06:17] LABS: Anisocytosis 2+ (NORMAL); Hypochromasia 1+ (NORMAL); Platelet Estimate Adequate (Adequate); Schistocytes None Seen (NORMAL)
[2023-03-27] MEDS: AMIODARONE 360 MG/D5W 200 ML 360 MG/200 ML BAG 16.67 MG IV CONT ×2 (07:43→16:33)
[2023-03-27] MEDS: NOREPINEPHRINE 8 MG/D5W 250 ML 8 MG/250 ML BAG 1.88 MG IV CONT (07:43)
--- NOTE | 2023-03-27 08:25 | PCPTNOTE ---
Attempted PT evaluation, pt refused. RN present for refusal. Will follow.
--- NOTE | 2023-03-27 08:25 | PCOTNOTE ---
Attempted OT evaluation. Pt refused. Will follow. RN aware.
[2023-03-27] MEDS: MIDODRINE HCL 10 MG TABLET PO ×3 (08:27→16:22)
[2023-03-27] MEDS: metFORMIN HCL XR 500 MG TAB.SR.24H 2000 MG PO (08:27)
[2023-03-27] MEDS: TAMSULOSIN HCL 0.4 MG CAPSULE PO (08:27)
[2023-03-27] MEDS: PREGABALIN (*CRX) 75 MG CAPSULE 150 MG PO (08:28)
[2023-03-27] MEDS: ASPIRIN 81 MG CHEWABLE TABLET PO (08:28)
[2023-03-27] MEDS: EMPAGLIFLOZIN 25 MG TABLET PO (08:28)
[2023-03-27] MEDS: ENOXAPARIN 40 MG/0.4 ML SYRINGE SUB-Q (08:28)
[2023-03-27] MEDS: PRAVASTATIN SODIUM 20 MG TABLET 40 MG PO (08:28)
[2023-03-27] MEDS: PANTOPRAZOLE SODIUM IV 40 MG VIAL IV PUSH ×2 (08:28→21:10)
[2023-03-27] MEDS: MONTELUKAST SODIUM 10 MG TABLET PO (08:28)
[2023-03-27] MEDS: DIGOXIN 250 MCG TABLET PO (08:28)
[2023-03-27] MEDS: FINASTERIDE 5 MG TABLET PO (08:28)
[2023-03-27] MEDS: DESMOPRESSIN ACETATE 4 MCG/ML AMP 2 MCG IV PUSH (08:29)
[2023-03-27] MEDS: TOLNAFTATE 1% POWDER 45 GM BTL 1 APPLIC TOPICAL ×2 (08:30→20:00)
[2023-03-27 08:45] LABS: Glucose Point of Care 148 mg/dl (65-105)
[2023-03-27] MEDS: MAGNESIUM SULF 2 GM/WATER 50ML 2 GM/50 ML BAG IVPB (08:46)
[2023-03-27] MEDS: ALBUMIN HUMAN 25% 25 GM/100 ML 100 ML IVPB ×3 (09:42→17:20)
--- NOTE | 2023-03-27 10:30 | P.PNNP_ITS ---
Progress Note: A&P Assessment and Plan (1) Polyuria: Code(s): R35.89 - Other polyuria Status: Acute Assessment and Plan: * in association with polydipsia * urine output seems to have 2 - 4L of UOP daily * this may be partly causing/contributing to issues with hypovolemia and hypotension * possibility this is normal response due to urinary retention/obstruction for unknown duration * concern is this could be diabetes insipidus * serum/urine osmolality pending * however, sodium low - normal (as opposed to elevated) * trial doses of DDAVP to date -- difficult to say if much of a response has been noted (2) Septic shock: Code(s): A41.9 - Sepsis, unspecified organism; R65.21 - Severe sepsis with septic shock Status: Acute Assessment and Plan: * clinically better * off vasopressors at this time * culture data noted * on antibiotic therapy (wound cultures with Enterococcus) * on midodrine and PRN IVF boluses * follow trend of hemodynamics (3) Acute pyelitis: Code(s): N10 - Acute pyelonephritis Status: Acute Assessment and Plan: * CT of A/P (on 03/20) noted: Bilateral hydronephrosis with urothelial enhance ment, suspicious for ascending urinary tract infection and/or pyelonephritis * however, culture data without growth (blood and urine) to date * Urologly recommendations noted: * keep the Mcgovern catheter before voiding trial * continue to flush mcgovern to ensure patency (4) Anemia: Qualifiers: Anemia type: unspecified type Qualified Code(s): D64.9 - Anemia, unspecified Code(s): D64.9 - Anemia, unspecified Status: Acute Assessment and Plan: * suspect anemia of chronic disease * iron studies noted * suspect acute illness playing a role as well * follow trend of H/H * PRBC transfusion per protocol (5) Atrial fibrillation with rapid ventricular response: Code(s): I48.91 - Unspecified atrial fibrillation Status: Acute Assessment and Plan: * s/p cardioversion x 2 during this hospitalization * digoxin as well as metoprolol for rate control * on lovenox for anticoagulation * Cardiology following (6) Decubitus ulcer: Code(s): L89.90 - Pressure ulcer of unspecified site, unspecified stage Status: Acute Assessment and Plan: * General Surgery following * debridement and wound vac placement on 03/21 * on antibiotics * local wound care * likely further debridement once more stable (7) Diabetes mellitus type 2, uncontrolled: Status: Chronic Assessment and Plan: * follow accu-cheks * glycemic control per hospitalists/manager women Will continue to follow. Subjective Date/time seen: 03/27/23 10:30 Interval history: Follow-up for polyuria. Able to be weaned off levophed last night with stable hemodynamics this time; despite trial doses of DDAVP, difficult to say if his urine output has really decreased all that much as he still has significant UOP as noted by I/Os; no apparent distress noted. Exam Narrative: General: elderly male in NAD Heart: tachycardic, normal S1 and S2; no rub Lungs: clear anteriorly Abdomen: soft, nontender, nondistended, positive bowel sounds Extremities: no cyanosis or clubbing; trace - 1+ edema in UEs and LEs Skin: chronic venous stasis changes Objective Data Vital Signs Vital Signs: Vital Sig
--- NOTE | 2023-03-27 10:30 | PM.PNNEP ---
Progress Note: A&P Assessment and Plan (1) Polyuria: Code(s): R35.89 - Other polyuria Status: Acute Assessment and Plan: in association with polydipsia urine output seems to have 2 - 4L of UOP daily this may be partly causing/contributing to issues with hypovolemia and hypotension possibility this is normal response due to urinary retention/obstruction for unknown duration concern is this could be diabetes insipidus serum/urine osmolality pending however, sodium low - normal (as opposed to elevated) trial doses of DDAVP to date -- difficult to say if much of a response has been noted (2) Septic shock: Code(s): A41.9 - Sepsis, unspecified organism; R65.21 - Severe sepsis with septic shock Status: Acute Assessment and Plan: clinically better off vasopressors at this time culture data noted on antibiotic therapy (wound cultures with Enterococcus) on midodrine and PRN IVF boluses follow trend of hemodynamics (3) Acute pyelitis: Code(s): N10 - Acute pyelonephritis Status: Acute Assessment and Plan: CT of A/P (on 03/20) noted: Bilateral hydronephrosis with urothelial enhancement, suspicious for ascending urinary tract infection and/or pyelonephritis however, culture data without growth (blood and urine) to date Urologly recommendations noted: keep the Mcgovern catheter before voiding trial continue to flush mcgovern to ensure patency (4) Anemia: Qualifiers: Anemia type: unspecified type Qualified Code(s): D64.9 - Anemia, unspecified Code(s): D64.9 - Anemia, unspecified Status: Acute Assessment and Plan: suspect anemia of chronic disease iron studies noted suspect acute illness playing a role as well follow trend of H/H PRBC transfusion per protocol (5) Atrial fibrillation with rapid ventricular response: Code(s): I48.91 - Unspecified atrial fibrillation Status: Acute Assessment and Plan: s/p cardioversion x 2 during this hospitalization digoxin as well as metoprolol for rate control on lovenox for anticoagulation Cardiology following (6) Decubitus ulcer: Code(s): L89.90 - Pressure ulcer of unspecified site, unspecified stage Status: Acute Assessment and Plan: General Surgery following debridement and wound vac placement on 03/21 on antibiotics local wound care likely further debridement once more stable (7) Diabetes mellitus type 2, uncontrolled: Status: Chronic Assessment and Plan: follow accu-cheks glycemic control per hospitalists/mail processing clerk Will continue to follow. Subjective Date/time seen: 03/27/23 10:30 Interval history: Follow-up for polyuria. Able to be weaned off levophed last night with stable hemodynamics this time; despite trial doses of DDAVP, difficult to say if his urine output has really decreased all that much as he still has significant UOP as noted by I/Os; no apparent distress noted. Exam Narrative: General: elderly male in NAD Heart: tachycardic, normal S1 and S2; no rub Lungs: clear anteriorly Abdomen: soft, nontender, nondistended, positive bowel sounds Extremities: no cyanosis or clubbing; trace - 1+ edema in UEs and LEs Skin: chronic venous stasis changes Objective Data Vital Signs Vital Signs: Vital Signs Temp Pulse Resp BP Pulse Ox O2 Del Method O2 Flow Rate 03/27/23 10:00 116 H 03/27/23 08:00 119 H 03/27/23 10:00 116 H 19 95/51 L 95 03/27/23 08:00 97.6 F 120 H 16 91/58 L 98 03/27/23 08:00 93 Room Air 03/27/23 08:45 118 H 107/64 03/27/23 08:28 120 H 03/27/23 07:43 102 H 101/64 03/27/23 07:43 102 H 101/64 03/27/23 07:43 119 H 101/64 03/27/23 06:00 111 H 15 108/61 91 03/27/23 06:00 111 H 03/27/23 05:51 111 H 97/63 L 03/27/23 04:00 Room Air 03/27/23 04:00
--- NOTE | 2023-03-27 10:49 | PCPTNOTE ---
Attempted PT evaluation, pt refused stating I can't. Attempted to encourage/educated pt on benefits of participating in skilled therapy, but pt continued to refuse reporting the pain was too much. RN aware. Will follow.
--- NOTE | 2023-03-27 10:50 | PCOTNOTE ---
Attempted OT evaluation, pt refused stating I can't. Attempted to encourage/educated pt on benefits of participating in skilled therapy, but pt continued to refuse. RN aware. Will follow.
--- NOTE | 2023-03-27 11:15 | WPDINTPN ---
Progress Note: A&P Assessment and Plan (1) Polydipsia: Code(s): R63.1 - Polydipsia Status: Acute Assessment and Plan: Patient with polydipsia, increased urine output like 2-4 L daily -this could be causing hypovolemia and hypotension -urine and serum osmolality pending -could be diabetes insipidus -Nephrology has been consulted -patient was given DDAVP 1 mcg on 03/25, 2 mcg on 03/26 -will repeat DDAVP 2 mcg today (2) Septic shock: Code(s): A41.9 - Sepsis, unspecified organism; R65.21 - Severe sepsis with septic shock Status: Acute Assessment and Plan: 03/20/2023: Patient was transferred from the intermediate Unit after being found hypotensive despite 2.5 L of IV fluid bolus. PICC line was inserted and patient was started on Levophed. Patient has minimal urine output on 03/19 despite he drinking lot of fluids and receiving IV fluid bolus. Whyte was flushed, with return of purulent drainage in the urine tubing along with sediments. -OFF LEVOPHED since 03/24 5:00 p.m. Restarted on levophed 03/25 night -off Levophed since 03/26 night -source likely UTI/pyelonephritis, decubitus ulcer, possible cholecystitis as seen on the CT scan below -03/20 CT scan of the abdomen and pelvis showed 1. Bilateral hydronephrosis with urothelial enhancement, suspicious for ascending urinary tract infection and/or pyelonephritis. 2: Distended gallbladder with small amount of surrounding fluid. Cannot exclude cholecystitis. 3:? Right sacral decubitus ulcer. No evidence for osteomyelitis. 4:? Bibasilar airspace disease, most likely dependent atelectasis. Small pleural effusions -03/21: Discontinued Flagyl -03/20 acute kidney injury with creatinine increased to 1.5 from 0.7 on 03/19. -creatinine has normalized -03/19: Blood cultures : No growth x2 so far -03/20: Wound culture showed a mix of organisms -03/20: Urine cultures negative -03/21: Wound culture during debridement growing vancomycin resistant Enterococcus faecalis, sensitive to ampicillin - discontinue meropenem and vancomycin Started Ampicillin (03/25) -continue midodrine (3) Acute pyelitis: Code(s): N10 - Acute pyelonephritis Status: Acute Assessment and Plan: Treatment as above 03/20 renal ultrasound: Showed bilateral renal cysts, mild bilateral hydronephrosis (4) Hydronephrosis: Code(s): N13.30 - Unspecified hydronephrosis Status: Acute Assessment and Plan: Urology was following the patient, recommended to keep the Whyte catheter before voiding trial -will continue to flush Whyte at regular intervals (5) Acute renal insufficiency: Code(s): N28.9 - Disorder of kidney and ureter, unspecified Status: Acute Assessment and Plan: Patient with acute kidney injury with creatinine of 1.5 on 03/20 (from 0.7) -adequate fluid resuscitation -lactic acid trending down -patient on see Levophed, will maintain MAP > 65 mmHg for adequate end organ perfusion -continue to monitor renal function, electrolytes and urine output -off all IV fluids, patient drinking adequate amount of IV fluids with good urine -creatinine has normalized (6) Anemia: Qualifiers: Anemia type: unspecified type Qualified Code(s): D64.9 - Anemia, unspecified Code(s): D64.9 - Anemia, unspecified Status: Acute Assessment and Plan: Folic acid and vitamin B12 within normal limit -iron panel showed decreased iron levels, TIBC and% saturation. MCV is normal, likely anemia of chronic disease -stool for Hemoccult is negative -03/23: Patient was anemic and leukopenic -hemoglobin and WBC count has been stable and improving since -appreciate heme/Onc evaluation and recommendations. Likely related to acute illness, shock, bone marrow suppression, continue supportive care (7) Atrial fibrillation with RVR: Code(s): I48.91 - Unspecified atrial fibrillation Status: Acute As
[2023-03-27 12:26] LABS: Glucose Point of Care 175 mg/dl (65-105)
--- NOTE | 2023-03-27 12:33 | WPDONCPN ---
Progress Note: A/P (1) Anemia Qualifiers: Anemia type: unspecified type Qualified Code(s): D64.9 - Anemia, unspecified Code(s): D64.9 - Anemia, unspecified Status: Acute - Additional Plan Anemia and Leukopenia- Leukopenia has resolved. He has multiple infections including UTI and sacral ulcer wound now growing vancomycin resistant Enterococcus faecalis, and now changed to Ampicillin. Patient has hx of leukopenia during acute infections. he was hospitalized 08/20/22-09/13/22 for sepsis and had WBC of 2.9K on 09/07/22. Leukopenia has now resolved with WBC 5.3K today. Hemoglobin is stable at 8.1. Supportive care only. - Time Spent With Patient Total time spent is greater than 50% in coordination of care (as documented) at patient's floor/unit and/or counseling patient: 15 - 25 minutes Subjective Interval history: Patient with no overnight event. Off the levophed since last night. Afebrile overnight. States that he is drinking lot of fluids. Denies nausea or vomiting. No other complaints. Review of Systems - Review of Systems All systems reviewed & are unremarkable except as noted in HPI and bel - Neurologic Reports system reviewed and no additional complaints, except as documented, Denies behavioral changes, Denies confusion Exam Vital signs: Temp Pulse Resp BP Pulse Ox O2 Del Method O2 Flow Rate 36.4 C 112 H 19 95/51 L 95 Room Air 2 03/27/23 08:00 03/27/23 12:00 03/27/23 10:00 03/27/23 10:00 03/27/23 10:00 03/27/23 08:00 03/27/23 00:00 FiO2 98 03/26/23 04:00 - Constitutional no acute distress - Routine HEENT Exam Head: Present: atraumatic, normal inspection Eye: Present: EOMI ENT: Present: mucous membranes moist - Routine Respiratory Exam Present: CTAB - Routine Cardiovascular Exam Cardiovascular: Present: RRR, S1, S2, tachycardia - Routine Skin Exam Present: wounds (sacral wound present) PN: Objective Data - Labs CBC & Chem 7: 03/27/23 05:11 03/27/23 05:11 Labs: Laboratory Results - last 24 hr 03/26/23 03/26/23 03/26/23 12:44 17:05 20:12 WBC RBC Hgb Hct MCV MCH MCHC RDW Plt Count MPV Immature Gran % (Auto) Neut % (Auto) Lymph % (Auto) Webster % (Auto) Eos % (Auto) Baso % (Auto) Lymph # (Auto) Webster # (Auto) Eos # (Auto) Baso # (Auto) Abs Immat Gran (auto) Absolute Neuts (auto) Absolute Nucleated RBC Nucleated RBC % Platelet Estimate Hypochromasia Anisocytosis Schistocytes Sodium Potassium Chloride Carbon Dioxide Anion Gap BUN Creatinine Estim Creat Clear Calc Estimated GFR Glucose POC Capillary Glucose 168 H 148 H 172 H Lactic Acid Calcium Phosphorus Magnesium Total Bilirubin AST ALT Alkaline Phosphatase Total Protein Albumin 03/27/23 03/27/23 03/27/23 05:11 08:23 11:45 WBC 5.3 RBC 3.42 L Hgb 8.1 L Hct 28.9 L MCV 84.5 MCH 23.7 L MCHC 28.0 L RDW 19.9 H Plt Count 258 MPV 10.5 H Immature Gran % (Auto) 2.9 H Neut % (Auto) 61.1 Lymph % (Auto) 27.0 Webster % (Auto) 6.7 Eos % (Auto) 1.9 Baso % (Auto) 0.4 Lymph # (Auto) 1.42 Webster # (Auto) 0.4 Eos # (Auto) 0.1 Baso # (Auto) 0.0 Abs Immat Gran (auto) 0.15 H Absolute Neuts (auto) 3.2 Absolute Nucleated RBC 0.0 Nucleated RBC % 0.0 Platelet Estimate Adequate Hypochromasia 1+ Anisocytosis 2+ Schistocytes None seen Sodium 135 L Potassium 4.0 Chloride 105 Carbon Dioxide 28 Anion Gap 2 L BUN 24 H Creatinine 0.70 Estim Creat Clear Calc 92 Estimated GFR > 60 Glucose 154 H POC Capillary Glucose 148 H 175 H Lactic Acid 1.9 Calcium 7.7 L Phosphorus 3.6 Magnesium 1.6 Total Bilirubin 0.3 AST 38 ALT 19 Alkaline Phosphatase 275 H Total Protein 5.0 L Albumin 1.8 L
--- NOTE | 2023-03-27 14:15 | PM.IMPN ---
Progress Note: A&P Assessment and Plan (1) Septic shock: Code(s): A41.9 - Sepsis, unspecified organism; R65.21 - Severe sepsis with septic shock Status: Acute Assessment and Plan: Resolved (2) Acute pyelitis: Code(s): N10 - Acute pyelonephritis Status: Acute (3) Hydronephrosis: Code(s): N13.30 - Unspecified hydronephrosis Status: Acute (4) Acute renal insufficiency: Code(s): N28.9 - Disorder of kidney and ureter, unspecified Status: Acute (5) Anemia: Qualifiers: Anemia type: unspecified type Qualified Code(s): D64.9 - Anemia, unspecified Code(s): D64.9 - Anemia, unspecified Status: Acute (6) Atrial fibrillation with RVR: Code(s): I48.91 - Unspecified atrial fibrillation Status: Acute Assessment and Plan: On IV amiodarone. Continue anticoagulation. Transitioning to oral metoprolol. Appreciate cardiology input. 03/25/2023 interval history, 73-year-old male with a atrial fibrillation RVR seen by cardiology being treated with amiodarone drip and metoprolol was added however patient blood pressure was soft unable to tolerate metoprolol held the medication, patient was seen by Cardiology digoxin was added HR is trending down and blood pressure is improving, patient has significant sacral decubital ulcers and necrosis, was seen by surgery service, patient will need surgical debridement however patient is not a good candidate for the surgery, once cardiac issues have stabilized may consider surgical interventon, on 03/19 patient remained clinically stable however he had developed fever and more somnolent, suspect patient has again developed sepsis from his wound, will collect blood culture and wound culture start the patient, ceftriaxone, 2 g q.day, Flagyl 500 mg q.8 and vancomycin per pharmacy later in the evening patient was transferred to ICU as patient was hypotensive and started on levophed, ct scan abdomen is suspicious pyelonephritis, and now patient is being treated with Meropenem, flagyl and vancomcin, urine and blood culture no growth so far, on 03/21 patient was seen by surgery service had debridement of the wound, wound growing Enterococcus species, on 03/24 patient blood pressure was improving and Levophed was on hold however patient is requiring Levophed as his BP is still soft, however today patient is more alert and oriented, his duaghter is present and gave updates, seen by audit reviewer and will monitor patient will be seen security auditor and further recommendation to follow. 03/26/2023: 73-year-old male with a atrial fibrillation RVR seen by cardiology being treated with amiodarone drip and metoprolol was added however patient blood pressure was soft unable to tolerate metoprolol held the medication, patient was seen by Cardiology digoxin was added HR is trending down and blood pressure is improving, patient has significant sacral decubital ulcers and necrosis, was seen by surgery service, patient will need surgical debridement however patient is not a good candidate for the surgery, once cardiac issues have stabilized may consider surgical interventon, on 03/19 patient remained clinically stable however he had developed fever and more somnolent, suspect patient has again developed sepsis from his wound, will collect blood culture and wound culture start the patient, ceftriaxone, 2 g q.day, Flagyl 500 mg q.8 and vancomycin per pharmacy later in the evening patient was transferred to ICU as patient was hypotensive and started on levophed, ct scan abdomen is suspicious pyelonephritis, and now patient is being treated with Meropenem, flagyl and vancomcin, urine and blood culture no growth so far, on 03/21 patient was seen by surgery service had debridement of the wound, wound growing Enterococcus species, on 03/24 patient blood pressure was improving and Levophed was on hold however patient is requiring Levophed as his BP is still soft,more alert. cont
[2023-03-27 16:30] LABS: Glucose Point of Care 181 mg/dl (65-105)
[2023-03-27] MEDS: INSULIN GLARGINE (*BKC) 100 UNITS/ML 15 UNITS SUB-Q (21:10)
[2023-03-27 22:06] LABS: Glucose Point of Care 173 mg/dl (65-105)
[2023-03-28] VITALS (17 sets, daily range): BP systolic 87–111; BP diastolic 51–66; PULSE 92–116; RESP 12–23; TEMP 36.1–37.1; O2SAT 97–100; BMI 10.0
[2023-03-28] MEDS: ALBUMIN HUMAN 25% 25 GM/100 ML 100 ML IVPB ×2 (00:45→07:00)
[2023-03-28] MEDS: AMIODARONE 360 MG/D5W 200 ML 360 MG/200 ML BAG 16.67 MG IV CONT ×2 (04:02→16:03)
[2023-03-28] MEDS: AMPICILLIN SULB 3 GM/NS 100 ML 3 GM/100 ML VIAL IVPB ×4 (04:03→20:49)
[2023-03-28 05:11] LABS: Alanine Aminotransferase 17 U/L (6-50); Albumin Level 2.2 g/dL (3.5-5.1); Alkaline Phosphatase 188 U/L (38-126); Anion Gap 1 mmol/L (8-16); Aspartate Amino Transferase 33 U/L (17-59); Bilirubin,Total 0.3 mg/dL (0.2-1.3); Blood Urea Nitrogen 24 mg/dL (9-20); Calcium 7.7 mg/dL (8.4-10.2); Carbon Dioxide 29 mmol/L (22-30); Chloride 103 mmol/L (98-107); Estimated CRCL calculation 105 ml/min; Estimated Glomerular Filt Rate > 60; Glucose 162 mg/dL (65-110); Magnesium 1.7 mg/dL (1.6-2.3); Phosphorus 3.6 mg/dL (2.5-4.5); Potassium 3.7 mmol/L (3.4-5.0); Sodium 133 mmol/L (137-145)
[2023-03-28 05:33] LABS: Basophils Percent Auto 0.6 % (0.2-1.2); Eosinophils Absolute Auto 0.1 K/mm3 (0-0.3); Eosinophils Percent Auto 2.8 % (0-4.4); Hematocrit 22.8 % (42.0-52.0); Immature Granulocyte Absolute 0.09 K/mm3 (0.00-0.031); Immature Granulocyte Percent A 2.5 % (0-0.5); Lymphocytes Absolute Auto 0.89 K/mm3 (0.9-3.2); Lymphocytes Percent Auto 24.6 % (18.3-44.2); Mean Corpuscular HGB Conc 28.1 g/dl (32-36); Mean Corpuscular Hemoglobin 23.9 pg (26-34); Mean Corpuscular Volume 85.1 fl (80-100); Mean Platelet Volume 10.6 fl (7.4-10.4); Monocytes Absolute Auto 0.2 K/mm3 (0.1-0.6); Monocytes Percent Auto 5.5 % (2.6-8.5); Neutrophils Absolute Auto 2.3 K/mm3 (1.3-6.7); Nucleated Red Blood Cells Perc 0.6 % (0.0-0.2); Platelet Count Result 174 k/mm3 (150-375); Red Blood Count 2.68 M/mm3 (4.6-6.20); Red Cell Distribution Width 19.9 % (11.5-14.5); White Blood Count 3.6 K/mm3 (4.5-10.0)
[2023-03-28 06:00] LABS: Hemoglobin 6.4 g/dL (14.0-18.0)
[2023-03-28 06:01] LABS: Anisocytosis 2+ (NORMAL); Hypochromasia 2+ (NORMAL); Platelet Estimate Adequate (Adequate)
[2023-03-28 06:02] LABS: Poikilocytosis 1+ (NORMAL); Schistocytes None Seen (NORMAL)
[2023-03-28] MEDS: CENTRAL LINE FLUSH 10 ML IV PUSH ×3 (07:14→20:50)
[2023-03-28 07:31] LABS: Glucose Point of Care 116 mg/dl (65-105)
--- NOTE | 2023-03-28 09:23 | P.PNNP_ITS ---
Progress Note: A&P Assessment and Plan (1) Polyuria: Code(s): R35.89 - Other polyuria Status: Acute Assessment and Plan: * in association with polydipsia * urine output seems to be running around 2 - 4L daily * this may be partly causing/contributing to issues with hypovolemia and hypotension * possibility this is normal response due to urinary retention/obstruction for unknown duration * concern is this could be diabetes insipidus * serum/urine osmolality pending * however, sodium low - normal (as opposed to elevated) * but getting D5W fluids with gtts/medications * trial doses of DDAVP given -- difficult to say if much of a response has been noted * continue supportive therapy (2) Septic shock: Code(s): A41.9 - Sepsis, unspecified organism; R65.21 - Severe sepsis with septic shock Status: Acute Assessment and Plan: * clinically better * off vasopressors at this time * culture data noted * on antibiotic therapy (wound cultures with Enterococcus) * on midodrine and PRN IVF boluses * follow trend of hemodynamics (3) Acute pyelitis: Code(s): N10 - Acute pyelonephritis Status: Acute Assessment and Plan: * CT of A/P (on 03/20) noted: Bilateral hydronephrosis with urothelial enhancement, suspicious for ascending urinary tract infection and/or pyelonephritis * however, culture data without growth (blood and urine) to date * Urologly recommendations noted: * keep the Mcgovern catheter before voiding trial * continue to flush mcgovern to ensure patency (4) Anemia: Qualifiers: Anemia type: unspecified type Qualified Code(s): D64.9 - Anemia, unspecified Code(s): D64.9 - Anemia, unspecified Status: Acute Assessment and Plan: * suspect anemia of chronic disease * iron studies noted * suspect acute illness playing a role as well * follow trend of H/H * PRBC transfusion per protocol (5) Atrial fibrillation with rapid ventricular response: Code(s): I48.91 - Unspecified atrial fibrillation Status: Acute Assessment and Plan: * s/p cardioversion x 2 during this hospitalization * amiodarone gtt + digoxin as well as metoprolol for rate control * on lovenox for anticoagulation * Cardiology following (6) Decubitus ulcer: Code(s): L89.90 - Pressure ulcer of unspecified site, unspecified stage Status: Acute Assessment and Plan: * General Surgery following * debridement and wound vac placement on 03/21 * on antibiotics * local wound care * further debridement planned for tomorrow (7) Diabetes mellitus type 2, uncontrolled: Status: Chronic Assessment and Plan: * follow accu-cheks * glycemic control per hospitalists/cfo controller Not sure have much else to offer at this time -- will continue to follow intermittently Subjective Date/time seen: 03/28/23 09:23 Interval history: Follow-up for polyuria. Stable hemodynamics noted without the need for vasopressor therapy; low H/H noted by AM labs; continues to have significant urine output although I/Os in the last 24 hours seem more closely matched; still tachycardic but in no apparent distress. Exam Narrative: General: elderly male in NAD Heart: tachycardic, normal S1 and S2; no rub Lungs: clear anteriorly Abdomen: soft, nontender, nondistended, positive bowel sounds Extremities: no cyanosis or clubbing; trace - 1+ edema in UEs and LEs Skin: chronic venous stasis noted
--- NOTE | 2023-03-28 09:23 | PM.PNNEP ---
Progress Note: A&P Assessment and Plan (1) Polyuria: Code(s): R35.89 - Other polyuria Status: Acute Assessment and Plan: in association with polydipsia urine output seems to be running around 2 - 4L daily this may be partly causing/contributing to issues with hypovolemia and hypotension possibility this is normal response due to urinary retention/obstruction for unknown duration concern is this could be diabetes insipidus serum/urine osmolality pending however, sodium low - normal (as opposed to elevated) but getting D5W fluids with gtts/medications trial doses of DDAVP given -- difficult to say if much of a response has been noted continue supportive therapy (2) Septic shock: Code(s): A41.9 - Sepsis, unspecified organism; R65.21 - Severe sepsis with septic shock Status: Acute Assessment and Plan: clinically better off vasopressors at this time culture data noted on antibiotic therapy (wound cultures with Enterococcus) on midodrine and PRN IVF boluses follow trend of hemodynamics (3) Acute pyelitis: Code(s): N10 - Acute pyelonephritis Status: Acute Assessment and Plan: CT of A/P (on 03/20) noted: Bilateral hydronephrosis with urothelial enhancement, suspicious for ascending urinary tract infection and/or pyelonephritis however, culture data without growth (blood and urine) to date Urologly recommendations noted: keep the Mcgovern catheter before voiding trial continue to flush mcgovern to ensure patency (4) Anemia: Qualifiers: Anemia type: unspecified type Qualified Code(s): D64.9 - Anemia, unspecified Code(s): D64.9 - Anemia, unspecified Status: Acute Assessment and Plan: suspect anemia of chronic disease iron studies noted suspect acute illness playing a role as well follow trend of H/H PRBC transfusion per protocol (5) Atrial fibrillation with rapid ventricular response: Code(s): I48.91 - Unspecified atrial fibrillation Status: Acute Assessment and Plan: s/p cardioversion x 2 during this hospitalization amiodarone gtt + digoxin as well as metoprolol for rate control on lovenox for anticoagulation Cardiology following (6) Decubitus ulcer: Code(s): L89.90 - Pressure ulcer of unspecified site, unspecified stage Status: Acute Assessment and Plan: General Surgery following debridement and wound vac placement on 03/21 on antibiotics local wound care further debridement planned for tomorrow (7) Diabetes mellitus type 2, uncontrolled: Status: Chronic Assessment and Plan: follow accu-cheks glycemic control per hospitalists/rehab rn Not sure have much else to offer at this time -- will continue to follow intermittently Subjective Date/time seen: 03/28/23 09:23 Interval history: Follow-up for polyuria. Stable hemodynamics noted without the need for vasopressor therapy; low H/H noted by AM labs; continues to have significant urine output although I/Os in the last 24 hours seem more closely matched; still tachycardic but in no apparent distress. Exam Narrative: General: elderly male in NAD Heart: tachycardic, normal S1 and S2; no rub Lungs: clear anteriorly Abdomen: soft, nontender, nondistended, positive bowel sounds Extremities: no cyanosis or clubbing; trace - 1+ edema in UEs and LEs Skin: chronic venous stasis noted Objective Data Vital Signs Vital Signs: Vital Signs Temp Pulse Resp BP Pulse Ox O2 Del Method O2 Flow Rate 03/28/23 09:00 98.8 F 115 H 12 105/61 100 03/28/23 08:00 115 H 03/28/23 08:19 Nasal Cannula 2 03/28/23 07:40 98 F 114 H 22 H 94/51 L 100 03/28/23 06:00 97 16 106/62 100 03/28/23 06:00 97 03/28/23 04:00 98.2 F 96 19 106/62 100 03/28/23 04:00 102 H 16 100 Nasal Cannula 2 03/28/23 04:00 96 03/28/23 02:00
[2023-03-28] MEDS: metFORMIN HCL XR 500 MG TAB.SR.24H 2000 MG PO (09:36)
[2023-03-28] MEDS: PANTOPRAZOLE SODIUM IV 40 MG VIAL IV PUSH ×2 (09:36→20:48)
[2023-03-28] MEDS: DIGOXIN 250 MCG TABLET PO (09:36)
[2023-03-28] MEDS: ASPIRIN 81 MG CHEWABLE TABLET PO (09:36)
[2023-03-28] MEDS: PRAVASTATIN SODIUM 20 MG TABLET 40 MG PO (09:36)
[2023-03-28] MEDS: TAMSULOSIN HCL 0.4 MG CAPSULE PO (09:37)
[2023-03-28] MEDS: PREGABALIN (*CRX) 75 MG CAPSULE 150 MG PO (09:37)
[2023-03-28] MEDS: MONTELUKAST SODIUM 10 MG TABLET PO (09:37)
[2023-03-28] MEDS: MIDODRINE HCL 10 MG TABLET PO ×3 (09:37→16:04)
[2023-03-28] MEDS: EMPAGLIFLOZIN 25 MG TABLET PO (09:37)
[2023-03-28] MEDS: FINASTERIDE 5 MG TABLET PO (09:37)
[2023-03-28] MEDS: TOLNAFTATE 1% POWDER 45 GM BTL 1 APPLIC TOPICAL ×2 (09:39→20:39)
--- NOTE | 2023-03-28 10:03 | PM.PNGS ---
Progress Note: A&P Assessment and Plan (1) Decubitus ulcer: Code(s): L89.90 - Pressure ulcer of unspecified site, unspecified stage Status: Acute Assessment and Plan: Patient will go to the operating room tomorrow for additional debridement of any nonviable tissue in the wound. We then apply axial fill allograft to the granulating base and replaced the wound VAC. answered all the patient's questions today. He agrees to proceed with surgery tomorrow. (2) Anemia: Qualifiers: Anemia type: unspecified type Qualified Code(s): D64.9 - Anemia, unspecified Code(s): D64.9 - Anemia, unspecified Status: Acute Assessment and Plan: Hemoglobin dropped down to 6.4 today. Will defer to hospitalist or latex dipper to decide on need for blood transfusion. Subjective Subjective Date/Time Seen: 03/28/23 10:03 Interval history: Patient without new complaints. He remains in intensive care unit but his blood pressure has been fairly stable. Wound VAC continues to be in place on the sacral decubitus wound. Hemoglobin has dropped down to 6.4 today. White blood cell count is low at 3600. Exam Skin: Other: Wound VAC dressing in place on sacral decubitus wound. Has a good vacuum seal. No spreading erythema around the wound. Output is blood tinged serous. Objective Data Vital Signs Vital Signs: Vital Signs - 24 hr 03/27/23 12:00 03/27/23 12:00 03/27/23 12:00 Temperature 36.1 C L Pulse Rate 112 H 111 H Respiratory Rate 18 Blood Pressure 107/60 Pulse Oximetry 93 95 Oxygen Delivery Room Air Oxygen Flow Rate Fraction of Inspired Oxygen 03/27/23 14:00 03/27/23 14:00 03/27/23 16:33 Temperature Pulse Rate 113 H 112 H 103 H Respiratory Rate 18 Blood Pressure 94/60 L 104/60 Pulse Oximetry 96 Oxygen Delivery Oxygen Flow Rate Fraction of Inspired Oxygen 03/27/23 16:00 03/27/23 16:00 03/27/23 16:00 Temperature 36.1 C L Pulse Rate 96 96 Respiratory Rate 20 Blood Pressure 96/61 L Pulse Oximetry 93 95 Oxygen Delivery Room Air Oxygen Flow Rate Fraction of Inspired Oxygen 03/27/23 17:59 03/27/23 18:00 03/27/23 20:00 Temperature Pulse Rate 111 H 111 H 109 H Respiratory Rate 21 H Blood Pressure 101/58 L Pulse Oximetry 98 Oxygen Delivery Oxygen Flow Rate Fraction of Inspired Oxygen 03/27/23 20:00 03/27/23 20:00 03/27/23 22:00 Temperature 36.2 C L Pulse Rate 111 H 109 H 110 H Respiratory Rate 21 H 21 H 19 Blood Pressure 95/57 L 104/59 L Pulse Oximetry 98 98 100 Oxygen Delivery Room Air Oxygen Flow Rate Fraction of Inspired Oxygen 98 03/27/23 22:00 03/28/23 00:00 03/28/23 00:00 Temperature Pulse Rate 110 H 110 H 110 H Respiratory Rate 19 Blood Pressure Pulse Oximetry 100 Oxygen Delivery Nasal Cannula Oxygen Flow Rate 2 Fraction of Inspired Oxygen 98 03/28/23 00:00 03/28/23 02:00 03/28/23 02:00 Temperature 36.1 C L 36.6 C Pulse Rate 97 102 H 102 H Respiratory Rate 19 16 Blood Pressure 96/54 L 93/57 L Pulse Oximetry 97 100 Oxygen Delivery Oxygen Flow Rate Fraction of Inspired Oxygen 03/28/23 04:00 03/28/23 04:00 03/28/23 04:00 Temperature 36.8 C Pulse Rate 96 102 H 96 Respiratory Rate 16 19 Blood Pressure 106/62 Pulse Oximetry 100 100 Oxygen Delivery Nasal Cannula Oxygen Flow Rate 2 Fraction of Inspired Oxygen 98 03/28/23 06:00 03/28/23 06:00 03/28/23 07:40 Temperature 36.6 C Pulse Rate 97 97 114 H Respiratory Rate 16 22 H Blood Pressure 106/62 94/51 L Pulse Oximetry 100 100 Oxygen Delivery Oxygen Flow Rate Fraction of Inspired Oxygen 03/28/23 08:19 03/28/23 08:00 03/28/23 10:00 Temperature Pulse Rate 115 H 113 H Respiratory Rate Blood Pressure Pulse Oximetry Oxygen Delivery Nasal Cannula Oxygen Flow Rate 2 Fraction of Inspired Oxygen 03/28/23 10:00 T
--- NOTE | 2023-03-28 10:46 | PCFNICU ---
ICU Rounding Note: Pt current nutrition is Diabetic consistent carb diet. 100% meals and 240 ml Glucerna recorded. Glucerna BID for additional 220 kcal and 10 g protein each. Reinier BID for 90 kcal and 2.5 g protein for wound healing. Nutrition recommendation: Continue with current nutrition care plan. Agree with orders. Last recorded weight is 90 kg. +3 kg /3 days Bowel Motility: Last BM 03/27/23 Labs Reviewed: Hgb 6.4, Hct 22.8, Alb 2.2, Na 133, BUN 24, Cre 0.5, Glu 62 Meds Noted: Eliquis, protonix, Lantus Skin: Sacral pressure ulcer, unstageable. Wound vac in place Additional Notes: Pt will be NPO tomorrow 03/29/23 for additional debridement and wound vac replacement. Intakes are good. Drop in hemoglobin. Following daily in ICU rounds. Will montior weight, labs, skin, oral intake every 7 days. .
--- NOTE | 2023-03-28 11:28 | WPDINTPN ---
Progress Note: A&P Assessment and Plan (1) Polyuria: Code(s): R35.89 - Other polyuria Status: Acute Assessment and Plan: Polyuria with polydipsia, increased urine output like 2-4 L daily -this could be causing hypovolemia and hypotension -nephrology is following and managing and trying to rule out DI -urine and serum osmolality pending -patient was given trial of DDAVP -patient was given DDAVP 1 mcg on 03/25, 2 mcg on 03/26, 03/27 2 mcg Will defer workup and management per Nephrology (2) Polydipsia: Code(s): R63.1 - Polydipsia Status: Acute Assessment and Plan: See above (3) Septic shock: Code(s): A41.9 - Sepsis, unspecified organism; R65.21 - Severe sepsis with septic shock Status: Acute Assessment and Plan: 03/20/2023: Patient was transferred from the intermediate Unit after being found hypotensive despite 2.5 L of IV fluid bolus. PICC line was inserted and patient was started on Levophed. Whyte was flushed, with return of purulent drainage in the urine tubing along with sediments. -03/20 CT scan of the abdomen and pelvis showed 1. Bilateral hydronephrosis with urothelial enhancement, suspicious for ascending urinary tract infection and/or pyelonephritis. 2: Distended gallbladder with small amount of surrounding fluid. Cannot exclude cholecystitis. 3:? Right sacral decubitus ulcer. No evidence for osteomyelitis. 4:? Bibasilar airspace disease, most likely dependent atelectasis. Small pleural effusions - source likely UTI/pyelonephritis, decubitus ulcer, possible cholecystitis as seen on the CT scan below -OFF LEVOPHED since 03/24 5:00 p.m. Restarted on levophed 03/25 night -off Levophed since 03/26 night -03/19: Blood cultures : No growth x2 so far -03/20: Wound culture showed a mix of organisms -03/20: Urine cultures negative -03/21: Wound culture during debridement growing vancomycin resistant Enterococcus faecalis, sensitive to ampicillin - discontinued meropenem and vancomycin and patient was started on Ampicillin (03/25) -continue midodrine (4) Pyelonephritis, acute: Code(s): N10 - Acute pyelonephritis Status: Acute Assessment and Plan: See above (5) Hydronephrosis: Code(s): N13.30 - Unspecified hydronephrosis Status: Acute Assessment and Plan: Urology was following the patient, recommended to keep the Whyte catheter before voiding trial -will continue to flush Whyte at regular intervals (6) Acute renal insufficiency: Code(s): N28.9 - Disorder of kidney and ureter, unspecified Status: Acute Assessment and Plan: Patient with acute kidney injury with creatinine of 1.5 on 03/20 (from 0.7) -adequate fluid resuscitation -creatinine has normalized (7) Anemia: Qualifiers: Anemia type: unspecified type Qualified Code(s): D64.9 - Anemia, unspecified Code(s): D64.9 - Anemia, unspecified Status: Acute Assessment and Plan: Folic acid and vitamin B12 within normal limit -iron panel showed decreased iron levels, TIBC and% saturation. MCV is normal, likely anemia of chronic disease -stool for Hemoccult is negative -03/23: Patient was anemic and leukopenic -03/28 hemoglobin 6.4. Patient is getting 1 unit of PRBC transfusion -patient was seen by heme/Onc e and recommend supportive care and p.r.n. transfusion Anticoagulation on hold IV Protonix (8) Atrial fibrillation with RVR: Code(s): I48.91 - Unspecified atrial fibrillation Status: Acute Assessment and Plan: Patient with AFib RVR status post cardioversion x2 on admission on 03/08/2022 -patient was placed on metoprolol, digoxin and p.o. amiodarone by Cardiology -in the intermediate Unit patient remained AFib RVR and amiodarone infusion was started -03/22: Amiodarone decreased to 0.5mg/min infusion -continue digoxin -Eliquis and therapeutic Lovenox on hold, first due to wound debridement and seconda
[2023-03-28 12:29] LABS: Glucose Point of Care 131 mg/dl (65-105)
[2023-03-28] MEDS: SODIUM CHLORIDE 0.9% IV 250 ML 30 ML IV CONT (14:32)
[2023-03-28 16:15] LABS: Hematocrit 27.5 % (42.0-52.0); Hemoglobin 8.1 g/dL (14.0-18.0); Mean Corpuscular HGB Conc 29.5 g/dl (32-36); Mean Corpuscular Hemoglobin 25.2 pg (26-34); Mean Corpuscular Volume 85.4 fl (80-100); Mean Platelet Volume 9.5 fl (7.4-10.4); Platelet Count Result 178 k/mm3 (150-375); Red Blood Count 3.22 M/mm3 (4.6-6.20); Red Cell Distribution Width 19.3 % (11.5-14.5); White Blood Count 5.2 K/mm3 (4.5-10.0)
[2023-03-28 16:19] LABS: Glucose Point of Care 163 mg/dl (65-105)
[2023-03-28] MEDS: INSULIN GLARGINE (*BKC) 100 UNITS/ML 15 UNITS SUB-Q (20:48)
[2023-03-28] MEDS: INSULIN ASPART (*BKC) 100 UNITS/ML SUB-Q (20:48)
[2023-03-28 21:01] LABS: Glucose Point of Care 233 mg/dl (65-105)
[2023-03-29] VITALS (19 sets, daily range): BP systolic 93–107; BP diastolic 46–67; PULSE 79–113; RESP 15–22; TEMP 36.2–37.2; O2SAT 93–100
[2023-03-29] MEDS: SODIUM CHLORIDE 0.9% IV 1,000 ML 75 ML IV CONT (01:00)
[2023-03-29] MEDS: AMPICILLIN SULB 3 GM/NS 100 ML 3 GM/100 ML VIAL IVPB ×4 (04:50→21:00)
[2023-03-29] MEDS: AMIODARONE 360 MG/D5W 200 ML 360 MG/200 ML BAG 16.67 MG IV CONT (05:24)
[2023-03-29] MEDS: CENTRAL LINE FLUSH 10 ML IV PUSH ×3 (05:26→21:00)
[2023-03-29 05:48] LABS: Hemoglobin 8.5 g/dL (14.0-18.0); Mean Corpuscular HGB Conc 29.3 g/dl (32-36); Mean Corpuscular Hemoglobin 24.9 pg (26-34); Mean Corpuscular Volume 84.8 fl (80-100); Mean Platelet Volume 10.6 fl (7.4-10.4); Platelet Count Result 195 k/mm3 (150-375); Red Blood Count 3.42 M/mm3 (4.6-6.20); Red Cell Distribution Width 19.6 % (11.5-14.5); White Blood Count 4.3 K/mm3 (4.5-10.0)
[2023-03-29 05:59] LABS: Alanine Aminotransferase 20 U/L (6-50); Albumin Level 2.2 g/dL (3.5-5.1); Alkaline Phosphatase 175 U/L (38-126); Anion Gap 0 mmol/L (8-16); Aspartate Amino Transferase 37 U/L (17-59); Bilirubin,Total 0.3 mg/dL (0.2-1.3); Blood Urea Nitrogen 24 mg/dL (9-20); Calcium 7.6 mg/dL (8.4-10.2); Carbon Dioxide 30 mmol/L (22-30); Chloride 105 mmol/L (98-107); Estimated CRCL calculation 124 ml/min; Estimated Glomerular Filt Rate > 60; Glucose 143 mg/dL (65-110); Magnesium 1.7 mg/dL (1.6-2.3); Potassium 3.5 mmol/L (3.4-5.0); Sodium 135 mmol/L (137-145)
[2023-03-29 08:10] LABS: Glucose Point of Care 94 mg/dl (65-105)
[2023-03-29] MEDS: TAMSULOSIN HCL 0.4 MG CAPSULE PO (08:51)
[2023-03-29] MEDS: MIDODRINE HCL 10 MG TABLET PO ×3 (08:52→17:48)
[2023-03-29] MEDS: MONTELUKAST SODIUM 10 MG TABLET PO (08:52)
[2023-03-29] MEDS: PREGABALIN (*CRX) 75 MG CAPSULE 150 MG PO (08:52)
[2023-03-29] MEDS: DIGOXIN 250 MCG TABLET PO (08:52)
[2023-03-29] MEDS: ASPIRIN 81 MG CHEWABLE TABLET PO (08:53)
[2023-03-29] MEDS: MAGNESIUM SULF 2 GM/WATER 50ML 2 GM/50 ML BAG IVPB (08:53)
[2023-03-29] MEDS: DEXTROSE 5%/0.9% SOD CHL 1,000 ML 50 ML IV CONT (08:53)
[2023-03-29] MEDS: PANTOPRAZOLE SODIUM IV 40 MG VIAL IV PUSH ×2 (08:54→20:51)
[2023-03-29] MEDS: FINASTERIDE 5 MG TABLET PO (08:54)
[2023-03-29] MEDS: PRAVASTATIN SODIUM 20 MG TABLET 40 MG PO (08:55)
[2023-03-29] MEDS: TOLNAFTATE 1% POWDER 45 GM BTL 1 APPLIC TOPICAL ×2 (08:55→20:58)
[2023-03-29] MEDS: KCL 40 MEQ/WATER 100 ML 100 ML 25 ML IVPB (09:06)
--- NOTE | 2023-03-29 09:46 | PM.PNCARD ---
Progress Note: A&P Assessment and Plan (1) Atrial fibrillation with rapid ventricular response: Code(s): I48.91 - Unspecified atrial fibrillation Status: Acute Assessment and Plan: Paroxysmal atrial fibrillation, recurrent atrial fibrillation with RVR during this hospitalization. Pursuing rate control strategy. Discontinue IV amiodarone and transition to p.o. 200mg daily Continue Digoxin, will check dig level today. Anticoagulation on hold due to recent surgery on 03/21. Resume anticoagulation when okay from a surgical standpoint. Cannot pursue cardioversion until patient can tolerate uninterrupted anticoagulation. If we were to pursue cardioversion, it would have to be KATHY guided as anticoagulation was held and with Anesthesia team. 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 Resume anticoagulation when okay from a surgical standpoint. (3) Septic shock: Code(s): A41.9 - Sepsis, unspecified organism; R65.21 - Severe sepsis with septic shock Status: Acute Assessment and Plan: Improving, off pressors. Subjective Date/time seen: 03/29/23 09:46 Interval history: Reason for visit: Atrial fibrillation with RVR 73 year old male with coronary artery disease and paroxysmal atrial fibrillation.? Patient was hospitalized here for a number of days now with problems with sepsis, UTI, sacral decubitus.? Asked to sign back on the patient's case because of AF with RVR.? He is completely asymptomatic of this arrhythmia.? Started on intravenous amiodarone per the hospitalist service Date of service 03/14/2023: No complaints this morning.? He remains in atrial fibrillation with rate typically between 100-120bpm.? He is asymptomatic.? Remains on amiodarone drip. Date of service 03/15/2023: Heart rate remains not well controlled.? However, he is still asymptomatic.? He does not have any chest pain, shortness of breath, or palpitations.? Date of service 03/16: Still with intermittent RVR. Patient was hyoptensive this morning, Metoprolol could not be given due to SBP in the 70s. Date of service 03/17: Yesterday afternoon, Amiodarone drip was weaned off, however later he went back into RVR and was given a dose of Digoxin IV overnight and then later on an Amiodarone bolus. HR in the 130s this morning but patient remains asymptomatic from it and is comfortably sleeping. Date of service 03/19/2023: Heart rate is still elevated despite high-dose metoprolol, amiodarone and digoxin. He denies any chest pain or shortness of breath Date of service 03/20/2023: Transfer to the ICU yesterday because of altered mental status and lethargy. He denies any chest pain or shortness of breath. Heart rate is still elevated but a bit better controlled. Date of service 03/22/2023: Patient states he is feeling well. In atrial fibrillation, HR in the 110s-120s. Asymptomatic from it. Remains on Amiodarone drip and Levophed drip. Date of service 03/23: Remains in atrial fibrillation but rates are better. Still on Levophed. Patient resting comfortably. Date of service 03/24: Heart rate in the 110s during my evaluation this morning. Per General Surgery, may need to take patient back to the operating room in the next couple of days for debridement of the remaining portion of the nonviable sacral tissue. Date of service 03/29/2023: Rate is better controlled today, in the 70's. Off pressors at this point and BP stable. Resting comfortably in bed at the time of my visit. Review of Systems Review of Systems: Denies chest pain, palpitations, shortness of breath All systems reviewed & are unremarkable except as noted in HPI and below Constitutional: Constitutional: Denies fever(s) Eyes: Eyes: Reports no additional eye complaints ENT: Denies epistaxis Cardiovascular: Cardiovascula
[2023-03-29] MEDS: AMIODARONE HCL 200 MG TABLET PO (10:28)
--- NOTE | 2023-03-29 10:33 | P.PNINT_ITS ---
Progress Note: A&P Assessment and Plan (1) Polyuria: Code(s): R35.89 - Other polyuria Status: Acute Assessment and Plan: Polyuria with polydipsia, increased urine output like 2-4 L daily -this could be causing hypovolemia and hypotension -nephrology is following and managing and trying to rule out DI -urine and serum osmolality pending -patient was given trial of DDAVP -patient was given DDAVP 1 mcg on 03/25, 2 mcg on 03/26, 03/27 2 mcg -continues to have high urine output. Electrolytes acceptable. Potassium replacement ordered Will defer workup and management per Nephrology (2) Polydipsia: Code(s): R63.1 - Polydipsia Status: Acute Assessment and Plan: See above (3) Septic shock: Code(s): A41.9 - Sepsis, unspecified organism; R65.21 - Severe sepsis with septic shock Status: Acute Assessment and Plan: 03/20/2023: Patient was transferred from the intermediate Unit after being found hypotensive despite 2.5 L of IV fluid bolus. PICC line was inserted and patient was started on Levophed. Whyte was flushed, with return of purulent drainage in the urine tubing along with sediments. -03/20 CT scan of the abdomen and pelvis showed 1. Bilateral hydronephrosis with urothelial enhancement, suspicious for ascending urinary tract infection and/or pyelonephritis. 2: Distended gallbladder with small amount of surrounding fluid. Cannot exclude cholecystitis. 3:? Right sacral decubitus ulcer. No evidence for osteomyelitis. 4:? Bibasilar airspace disease, most likely dependent atelectasis. Small pleural effusions - source likely UTI/pyelonephritis, decubitus ulcer, possible cholecystitis as seen on the CT scan below -OFF LEVOPHED since 03/24 5:00 p.m. Restarted on levophed 03/25 night -off Levophed since 03/26 night -03/19: Blood cultures : No growth x2 so far -03/20: Wound culture showed a mix of organisms -03/20: Urine cultures negative -03/21: Wound culture during debridement growing vancomycin resistant Enterococcus faecalis, sensitive to ampicillin - discontinued meropenem and vancomycin and patient was started on Unasyn (03/25 ) -continue midodrine (4) Pyelonephritis, acute: Code(s): N10 - Acute pyelonephritis Status: Acute Assessment and Plan: See above (5) Hydronephrosis: Code(s): N13.30 - Unspecified hydronephrosis Status: Acute Assessment and Plan: Urology was following the patient, recommended to keep the Whyte catheter before voiding trial Continue to flush Whyte at regular intervals (6) Acute renal insufficiency: Code(s): N28.9 - Disorder of kidney and ureter, unspecified Status: Acute Assessment and Plan: Patient with acute kidney injury with creatinine of 1.5 on 03/20 (from 0.7) Patient was treated with IV fluids and creatinine has normalized now (7) Anemia: Qualifiers: Anemia type: unspecified type Qualified Code(s): D64.9 - Anemia, unspecified Code(s): D64.9 - Anemia, unspecified Status: Acute Assessment and Plan: Folic acid and vitamin B12 within normal limit -iron panel showed decreased iron levels, TIBC and% saturation. MCV is normal, likely anemia of chronic disease -stool for Hemoccult is negative -03/23: Patient was anemic and leukopenic -03/28 hemoglobin 6.4. Patient is getting 1 unit of PRBC transfusion -patient was seen by heme/Onc e and recommend supportive care and p.r.n. trans fusion Anticoagulation on hold for surgery IV Protonix (8) Atrial fibrillation with RVR: Code(s): I48.
[2023-03-29 10:54] LABS: Glucose Point of Care 82 mg/dl (65-105)
--- NOTE | 2023-03-29 11:29 | PCFNICU ---
ICU Rounding Note: Pt current nutrition is NPO. Last recorded weight is 86.4 kg. Bowel Motility:+Bm reported 03/28 Labs Reviewed:Glu 143, BUN 24, Cr 0.5, Na 135 Meds Noted:Eliquis, Protonix, Lantus, Singular Skin: unstageable pressure ulcer-sacral Additional Notes: Patient is NPO for debridement today. Tolerating a DBCC diet, eating greater than 75% of meals. Receiving supplements of Reinier BID and Glucerna shakes BID for additional protein needs. Agree with diet orders. Following daily in ICU rounds. Will monitor weight, labs, skin, oral intake every 7 days.
--- NOTE | 2023-03-29 13:00 | PCOTNOTE ---
Per RN, Patient not to be seen this date. Patient having a debridement done.
--- NOTE | 2023-03-29 13:29 | WPDHPUPDATE1 ---
History and Physical Update Update Date/Time: 03/29/23 13:29 History and Physical has been reviewed, including an updated exam of the patient. There are NO changes in the patient's condition. Risks, benefits, and alternatives have been discussed and questions answered. Patient agrees to proceed with procedure.
--- NOTE | 2023-03-29 13:51 | WPDPN ---
Progress Note: A&P Assessment and Plan (1) Septic shock: Code(s): A41.9 - Sepsis, unspecified organism; R65.21 - Severe sepsis with septic shock Status: Acute Assessment and Plan: Resolved (2) Acute pyelitis: Code(s): N10 - Acute pyelonephritis Status: Acute (3) Hydronephrosis: Code(s): N13.30 - Unspecified hydronephrosis Status: Acute (4) Acute renal insufficiency: Code(s): N28.9 - Disorder of kidney and ureter, unspecified Status: Acute (5) Anemia: Qualifiers: Anemia type: unspecified type Qualified Code(s): D64.9 - Anemia, unspecified Code(s): D64.9 - Anemia, unspecified Status: Acute (6) Atrial fibrillation with RVR: Code(s): I48.91 - Unspecified atrial fibrillation Status: Acute Assessment and Plan: On IV amiodarone. Continue anticoagulation. Transitioning to oral metoprolol. Appreciate cardiology input. 03/25/2023 interval history, 73-year-old male with a atrial fibrillation RVR seen by cardiology being treated with amiodarone drip and metoprolol was added however patient blood pressure was soft unable to tolerate metoprolol held the medication, patient was seen by Cardiology digoxin was added HR is trending down and blood pressure is improving, patient has significant sacral decubital ulcers and necrosis, was seen by surgery service, patient will need surgical debridement however patient is not a good candidate for the surgery, once cardiac issues have stabilized may consider surgical interventon, on 03/19 patient remained clinically stable however he had developed fever and more somnolent, suspect patient has again developed sepsis from his wound, will collect blood culture and wound culture start the patient, ceftriaxone, 2 g q.day, Flagyl 500 mg q.8 and vancomycin per pharmacy later in the evening patient was transferred to ICU as patient was hypotensive and started on levophed, ct scan abdomen is suspicious pyelonephritis, and now patient is being treated with Meropenem, flagyl and vancomcin, urine and blood culture no growth so far, on 03/21 patient was seen by surgery service had debridement of the wound, wound growing Enterococcus species, on 03/24 patient blood pressure was improving and Levophed was on hold however patient is requiring Levophed as his BP is still soft, however today patient is more alert and oriented, his duaghter is present and gave updates, seen by reception clerk and will monitor patient will be seen regrinder operator and further recommendation to follow. 03/26/2023: 73-year-old male with a atrial fibrillation RVR seen by cardiology being treated with amiodarone drip and metoprolol was added however patient blood pressure was soft unable to tolerate metoprolol held the medication, patient was seen by Cardiology digoxin was added HR is trending down and blood pressure is improving, patient has significant sacral decubital ulcers and necrosis, was seen by surgery service, patient will need surgical debridement however patient is not a good candidate for the surgery, once cardiac issues have stabilized may consider surgical interventon, on 03/19 patient remained clinically stable however he had developed fever and more somnolent, suspect patient has again developed sepsis from his wound, will collect blood culture and wound culture start the patient, ceftriaxone, 2 g q.day, Flagyl 500 mg q.8 and vancomycin per pharmacy later in the evening patient was transferred to ICU as patient was hypotensive and started on levophed, ct scan abdomen is suspicious pyelonephritis, and now patient is being treated with Meropenem, flagyl and vancomcin, urine and blood culture no growth so far, on 03/21 patient was seen by surgery service had debridement of the wound, wound growing Enterococcus species, on 03/24 patient blood pressure was improving and Levophed was on hold however patient is requiring Levophed as his BP is still soft,more alert. cont
--- NOTE | 2023-03-29 14:11 | PC.NURSE ---
pt left via bed to OR at 1345, accompanied by this nurse
[2023-03-29] MEDS: LACTATED RINGERS 1,000 ML 30 ML IV CONT (15:14)
--- NOTE | 2023-03-29 15:31 | SUR.PHASEI ---
Wedding band placed on patient's left ring fingers in PACU.
[2023-03-29 15:42] LABS: Glucose Point of Care 76 mg/dl (65-105)
--- NOTE | 2023-03-29 15:42 | P.OP_ITS ---
Procedure Note - Detailed Date of Procedure 03/29/23 Pre-op Diagnosis Septic Shock,UTI/Pyelitis,AFIB w/RVR,ANTONY,Decub Ulc Post-op Diagnosis Same Procedure Performed Sharp scalpel debridement of sacral decubitus ulcer, application of Axial Fill allograft, and placement of wound VAC. Surgeon Rian Mendoza MD Route Sales Delivery Drivers Supervisor Arnaldo Armenta, ARTIST MODEL Anesthesia General Indications Patient is a 73-year-old male who was brought in from home with urosepsis and a large sacral decubitus ulcer. Last week he underwent urgent debridement of the sacral decubitus ulcer and wound VAC was placed. He has a stage IV decubitus ulcer with tissue loss all the way down to the periosteum of the sacrum. He has some devitalized tissue at the skin edges and on the tissue down on the periosteum. Presents now for additional sharp debridement of the nonviable tissue with then placement of axial fill the graft and wound VAC placement. Findings Additional necrotic tissue was noted at the lateral skin edge as well as overlying the periosteum of the sacrum. The wound after debridement measured 12cm in length by 10cm in width by 0.5cm in depth. There was a 1 to 2 cm undermining the flap from approximately 10 o'clock position to 3 o'clock position. Description of Procedure After informed consent was obtained patient brought to the operating room was placed in the prone naren-knife position on the operating table after administration of general endotracheal anesthesia. The area of the sacral decubitus wound was then prepped and draped in usual sterile fashion. A time- out was then performed correctly identifying the patient as well as procedure to be performed. He was already on scheduled IV antibiotics. I then proceeded to debride the wound sharply with a scalpel and cut away the skin laterally and also cut away the nonviable tissue overlying the periosteum of the sacrum. There was good granulation tissue noted just to the left of the edge of the sacrum. Once I had removed all the nonviable tissue I then roughed up the bed of the wound utilizing the bristles of a sterile scrub brush. I then achieved hemostasis with pinpoint cautery on a few small bleeding points. Axial Fill allograft was then placed into the bed of the wound and underneath the skin flaps. A 2g graft with the consistency of saw dust was placed and then covered with Adaptic gauze. On top of the Adaptic gauze I then placed black foam for wound VAC. adhesive dressings were then placed over the black foam and there was an extension of the foam to the patient's right lateral hip where the isaiah pad was placed onto the foam so that he would not have to lie directly on the isaiah pad. Once all the adhesive dressings were placed we then connected it to the wound VAC and achieved a good seal without any leakage. Area was then cleaned and then he was turned back onto the operating table the supine position and then extubated. The patient tolerated the procedure well no complications. All sponges, needles, and instrument counts were correct at the end procedure. EBL was _ 10 __cc. The patient was awakened and taken to recovery in stable and satisfactory condition. Implants Axial Fill allograft, 2g tube. Estimated Blood Loss -10.0 Urine Output 1,200 Drains No Packing Yes (Black foam wound VAC) Pathology None sent Complications No immediate complications Condition Stable Disposition PACU [facility] Billing Surgery - Charge Forward: Surgery Billing
--- NOTE | 2023-03-29 16:33 | PC.NURSE ---
pt returned via bed from O.R. at 1550
[2023-03-29 21:07] LABS: Glucose Point of Care 153 mg/dl (65-105)
[2023-03-29 22:04] LABS: Osmolality, Urine 378 mOsm/kg (50-1200)
[2023-03-29] MEDS: ACETAMINOPHEN 325 MG TABLET 650 MG PO (22:27)
[2023-03-30] VITALS (12 sets, daily range): BP systolic 90–104; BP diastolic 50–67; PULSE 88–118; RESP 16–20; TEMP 36.6–36.9; O2SAT 93–100
[2023-03-30] MEDS: oxyCODONE/ACETAMINOPHEN (*CRX) 5-325 MG TABLET 1 TABLET PO ×3 (02:01→22:48)
[2023-03-30] MEDS: AMPICILLIN SULB 3 GM/NS 100 ML 3 GM/100 ML VIAL IVPB ×4 (04:43→22:50)
[2023-03-30] MEDS: CENTRAL LINE FLUSH 10 ML IV PUSH ×3 (05:19→22:50)
[2023-03-30 05:50] LABS: Alanine Aminotransferase 11 U/L (6-50); Alkaline Phosphatase 68 U/L (38-126); Anion Gap -4 mmol/L (8-16); Aspartate Amino Transferase 20 U/L (17-59); Bilirubin,Total 0.2 mg/dL (0.2-1.3); Blood Urea Nitrogen 15 mg/dL (9-20); Calcium 3.7 mg/dL (8.4-10.2); Carbon Dioxide 18 mmol/L (22-30); Chloride 123 mmol/L (98-107); Estimated CRCL calculation 192 ml/min; Estimated Glomerular Filt Rate > 60; Glucose 95 mg/dL (65-110); Magnesium 1.2 mg/dL (1.6-2.3); Potassium 2.4 mmol/L (3.4-5.0); Sodium 137 mmol/L (137-145)
[2023-03-30 05:59] LABS: Digoxin 1.1 ng/mL (0.8-2.0)
[2023-03-30 06:04] LABS: Albumin Level < 1.0 g/dL (3.5-5.1)
[2023-03-30 06:43] LABS: Hematocrit 30.9 % (42.0-52.0); Hemoglobin 8.9 g/dL (14.0-18.0); Mean Corpuscular HGB Conc 28.8 g/dl (32-36); Mean Corpuscular Hemoglobin 24.9 pg (26-34); Mean Corpuscular Volume 86.3 fl (80-100); Mean Platelet Volume 10.7 fl (7.4-10.4); Platelet Count Result 188 k/mm3 (150-375); Red Blood Count 3.58 M/mm3 (4.6-6.20); Red Cell Distribution Width 20.2 % (11.5-14.5); White Blood Count 4.3 K/mm3 (4.5-10.0)
[2023-03-30 06:55] LABS: Alanine Aminotransferase 18 U/L (6-50); Albumin Level 2.1 g/dL (3.5-5.1); Alkaline Phosphatase 148 U/L (38-126); Anion Gap -2 mmol/L (8-16); Aspartate Amino Transferase 30 U/L (17-59); Bilirubin,Total 0.5 mg/dL (0.2-1.3); Blood Urea Nitrogen 25 mg/dL (9-20); Calcium 7.4 mg/dL (8.4-10.2); Carbon Dioxide 29 mmol/L (22-30); Chloride 107 mmol/L (98-107); Estimated CRCL calculation 124 ml/min; Estimated Glomerular Filt Rate > 60; Glucose 152 mg/dL (65-110); Potassium 4.1 mmol/L (3.4-5.0); Sodium 134 mmol/L (137-145)
[2023-03-30] MEDS: MONTELUKAST SODIUM 10 MG TABLET PO (08:31)
[2023-03-30] MEDS: ASPIRIN 81 MG CHEWABLE TABLET PO (08:31)
[2023-03-30] MEDS: PRAVASTATIN SODIUM 20 MG TABLET 40 MG PO (08:31)
[2023-03-30] MEDS: FINASTERIDE 5 MG TABLET PO (08:31)
[2023-03-30] MEDS: MIDODRINE HCL 10 MG TABLET PO ×3 (08:31→16:20)
[2023-03-30] MEDS: metFORMIN HCL XR 500 MG TAB.SR.24H 2000 MG PO (08:31)
[2023-03-30] MEDS: TAMSULOSIN HCL 0.4 MG CAPSULE PO (08:31)
[2023-03-30] MEDS: DIGOXIN 250 MCG TABLET PO (08:32)
[2023-03-30] MEDS: EMPAGLIFLOZIN 25 MG TABLET PO (08:32)
[2023-03-30] MEDS: AMIODARONE HCL 200 MG TABLET PO (08:32)
[2023-03-30] MEDS: ENOXAPARIN 40 MG/0.4 ML SYRINGE SUB-Q (08:33)
[2023-03-30] MEDS: PANTOPRAZOLE SODIUM IV 40 MG VIAL IV PUSH ×2 (08:33→20:37)
[2023-03-30] MEDS: TOLNAFTATE 1% POWDER 45 GM BTL 1 APPLIC TOPICAL ×2 (08:34→20:38)
[2023-03-30] MEDS: PREGABALIN (*CRX) 75 MG CAPSULE 150 MG PO (08:34)
--- NOTE | 2023-03-30 09:31 | WPDANESPN ---
Anes - Prog Note Post-Op Date/Time: 03/30/23 09:31 Cardiovascular status: other (patient been off and on levophed. tachycardic and hypotensive) Respiratory status: normal Airway patency: baseline Mental status: baseline Post-Op hydration status: other (IV fluid) Vital Signs: Last Vital Signs Temp 36.8 C 03/30/23 08:00 Pulse 101 H 03/30/23 08:00 Resp 17 03/30/23 08:00 BP 98/62 L 03/30/23 08:00 Pulse Ox 94 03/30/23 08:00 O2 Del Method Room Air 03/30/23 04:00 O2 Flow Rate 6 03/29/23 15:14 FiO2 98 03/29/23 12:00 Pain Score (VAS): 0 I/O: Intake & Output 03/29/23 03/30/23 03/30/23 23:59 07:59 15:59 Intake Total 2137 580 717 Output Total 1400 2700 Balance 737 -2120 717 Laboratory Tests 03/30/23 06:23 03/30/23 06:23 03/25/23 03/25/23 03/29/23 08:17 09:36 10:52 WBC RBC Hgb Hct MCV MCH MCHC RDW Plt Count MPV Sodium Potassium Chloride Carbon Dioxide Anion Gap BUN Creatinine Estim Creat Clear Calc Estimated GFR Glucose POC Capillary Glucose 82 Serum Osmolality 290 Calcium Magnesium Total Bilirubin AST ALT Alkaline Phosphatase Total Protein Albumin Urine Osmolality 378 Digoxin 03/29/23 03/29/23 03/30/23 15:39 20:46 05:00 WBC RBC Hgb Hct MCV MCH MCHC RDW Plt Count MPV Sodium 137 Potassium 2.4 L* Chloride 123 H Carbon Dioxide 18 L Anion Gap -4 L BUN 15 D Creatinine 0.30 L Estim Creat Clear Calc 192 Estimated GFR > 60 Glucose 95 POC Capillary Glucose 76 153 H Serum Osmolality Calcium 3.7 L Magnesium 1.2 L Total Bilirubin 0.2 AST 20 ALT 11 Alkaline Phosphatase 68 Total Protein 3.0 L Albumin < 1.0 L Urine Osmolality Digoxin 1.1 03/30/23 06:23 WBC 4.3 L RBC 3.58 L Hgb 8.9 L Hct 30.9 L MCV 86.3 MCH 24.9 L MCHC 28.8 L RDW 20.2 H Plt Count 188 MPV 10.7 H Sodium 134 L Potassium 4.1 Chloride 107 Carbon Dioxide 29 Anion Gap -2 L BUN 25 H D Creatinine 0.50 L Estim Creat Clear Calc 124 Estimated GFR > 60 Glucose 152 H POC Capillary Glucose Serum Osmolality Calcium 7.4 L Magnesium 2.0 Total Bilirubin 0.5 AST 30 ALT 18 Alkaline Phosphatase 148 H Total Protein 5.0 L Albumin 2.1 L Urine Osmolality Digoxin 1.0 Patient Feedback: Patient satisfied with anesthetic care.
--- NOTE | 2023-03-30 10:52 | WPDINTPN ---
Progress Note: A&P Assessment and Plan (1) Polyuria: Code(s): R35.89 - Other polyuria Status: Acute Assessment and Plan: Polyuria with polydipsia, increased urine output like 2-4 L daily -this could be causing hypovolemia and hypotension -nephrology is following and managing and trying to rule out DI -urine and serum osmolality pending -patient was given trial of DDAVP -patient was given DDAVP 1 mcg on 03/25, 2 mcg on 03/26, 03/27 2 mcg -continues to have high urine output. Electrolytes acceptable. Potassium replacement ordered Will defer workup and management per Nephrology (2) Polydipsia: Code(s): R63.1 - Polydipsia Status: Acute Assessment and Plan: See above (3) Septic shock: Code(s): A41.9 - Sepsis, unspecified organism; R65.21 - Severe sepsis with septic shock Status: Acute Assessment and Plan: 03/20/2023: Patient was transferred from the intermediate Unit after being found hypotensive despite 2.5 L of IV fluid bolus. PICC line was inserted and patient was started on Levophed. Whyte was flushed, with return of purulent drainage in the urine tubing along with sediments. -03/20 CT scan of the abdomen and pelvis showed 1. Bilateral hydronephrosis with urothelial enhancement, suspicious for ascending urinary tract infection and/or pyelonephritis. 2: Distended gallbladder with small amount of surrounding fluid. Cannot exclude cholecystitis. 3:? Right sacral decubitus ulcer. No evidence for osteomyelitis. 4:? Bibasilar airspace disease, most likely dependent atelectasis. Small pleural effusions - source likely UTI/pyelonephritis, decubitus ulcer, possible cholecystitis as seen on the CT scan below -OFF LEVOPHED since 03/24 5:00 p.m. Restarted on levophed 03/25 night -off Levophed since 03/26 night -03/19: Blood cultures : No growth x2 so far -03/20: Wound culture showed a mix of organisms -03/20: Urine cultures negative -03/21: Wound culture during debridement growing vancomycin resistant Enterococcus faecalis, sensitive to ampicillin - discontinued meropenem and vancomycin and patient was started on Unasyn (03/25) -continue midodrine (4) Pyelonephritis, acute: Code(s): N10 - Acute pyelonephritis Status: Acute Assessment and Plan: See above (5) Hydronephrosis: Code(s): N13.30 - Unspecified hydronephrosis Status: Acute Assessment and Plan: Urology was following the patient, recommended to keep the Whyte catheter before voiding trial Continue to flush Whyte at regular intervals (6) Acute renal insufficiency: Code(s): N28.9 - Disorder of kidney and ureter, unspecified Status: Acute Assessment and Plan: Patient with acute kidney injury with creatinine of 1.5 on 03/20 (from 0.7) Patient was treated with IV fluids and creatinine has normalized now (7) Anemia: Qualifiers: Anemia type: unspecified type Qualified Code(s): D64.9 - Anemia, unspecified Code(s): D64.9 - Anemia, unspecified Status: Acute Assessment and Plan: Folic acid and vitamin B12 within normal limit -iron panel showed decreased iron levels, TIBC and% saturation. MCV is normal, likely anemia of chronic disease -stool for Hemoccult is negative -03/23: Patient was anemic and leukopenic -03/28 hemoglobin 6.4. Patient is getting 1 unit of PRBC transfusion -patient was seen by heme/Onc e and recommend supportive care and p.r.n. transfusion Anticoagulation on hold for surgery and knee me a IV Protonix (8) Atrial fibrillation with RVR: Code(s): I48.91 - Unspecified atrial fibrillation Status: Acute Assessment and Plan: Patient with AFib RVR status post cardioversion x2 on admission on 03/08/2022 -patient was placed on metoprolol, digoxin and p.o. amiodarone by Cardiology -in the intermediate Unit patient remained AFib RVR and amiodarone infusion was started Currently on amiodarone infusion at 0
--- NOTE | 2023-03-30 11:00 | PCFNICU ---
ICU Rounding Note: Pt current nutrition is DBCC. Last recorded weight is 91.3 kg. Bowel Motility: +BM reported 03/28 Labs Reviewed:Glu 152, BUN 25, Cr 0.5,Na 134, Hct 30.9, Hgb 8.9, Alb 2.1 Meds Noted:Protonix, Lyrica, Lantus. Skin:unstageable pressure ulcer-sacral Additional Notes: Patient tolerating DBCC diet. Intake reported at greater than 75% of meals. Receiving Reinier BID and Glucerna BID for wound healing. Agree with diet orders. Following daily in ICU rounds. Will monitor weight, labs, skin, oral intake every 7 days.
[2023-03-30 11:48] LABS: Glucose Point of Care 191 mg/dl (65-105)
--- NOTE | 2023-03-30 12:42 | PM.PNNEP ---
Progress Note: A&P Assessment and Plan (1) Polyuria: Code(s): R35.89 - Other polyuria Status: Acute Assessment and Plan: in association with polydipsia initially urine output seems to be running around 2 - 4L daily this may be partly causing/contributing to issues with hypovolemia and hypotension possibility this is normal response due to urinary retention/obstruction for unknown duration concern is this could be diabetes insipidus serum/urine osmolality pending however, sodium low - normal (as opposed to elevated) he is also getting significant IVFs, medications, and gtts trial doses of DDAVP given -- difficult to say if much of a response has been noted continue supportive therapy (2) Septic shock: Code(s): A41.9 - Sepsis, unspecified organism; R65.21 - Severe sepsis with septic shock Status: Acute Assessment and Plan: clinically better off vasopressors at this time culture data noted on antibiotic therapy (wound cultures with Enterococcus) on midodrine and PRN IVF boluses follow trend of hemodynamics (3) Acute pyelitis: Code(s): N10 - Acute pyelonephritis Status: Acute Assessment and Plan: CT of A/P (on 03/20) noted: Bilateral hydronephrosis with urothelial enhancement, suspicious for ascending urinary tract infection and/or pyelonephritis however, culture data without growth (blood and urine) to date Urologly recommendations noted: keep the Mcgovern catheter before voiding trial continue to flush mcgovern to ensure patency (4) Anemia: Qualifiers: Anemia type: unspecified type Qualified Code(s): D64.9 - Anemia, unspecified Code(s): D64.9 - Anemia, unspecified Status: Acute Assessment and Plan: suspect anemia of chronic disease iron studies noted suspect acute illness playing a role as well follow trend of H/H PRBC transfusion per protocol (5) Atrial fibrillation with rapid ventricular response: Code(s): I48.91 - Unspecified atrial fibrillation Status: Acute Assessment and Plan: s/p cardioversion x 2 during this hospitalization amiodarone + digoxin as well as metoprolol for rate control on lovenox for anticoagulation Cardiology following (6) Decubitus ulcer: Code(s): L89.90 - Pressure ulcer of unspecified site, unspecified stage Status: Acute Assessment and Plan: General Surgery following debridement and wound vac placement on 03/21/23 s/p debridement of sacral decubitus ulcer, application of Axial Fill allograft, and placement of wound VAC on 03/29/23 on antibiotics local wound care pain control (7) Diabetes mellitus type 2, uncontrolled: Status: Chronic Assessment and Plan: follow accu-cheks glycemic control per hospitalists/child and family services worker Will continue to follow intermittently. Subjective Date/time seen: 03/30/23 12:42 Interval history: Follow-up for polyuria. S/P debridement of sacral decubitus ulcer and placement of wound VAC yesterday by Surgery and patient tolerated reasonably well; still with significant urine output but stable hemodynamics. Exam Narrative: General: elderly male in NAD Heart: tachycardic, normal S1 and S2; no rub Lungs: clear anteriorly Abdomen: soft, nontender, nondistended, positive bowel sounds Extremities: no cyanosis or clubbing; trace - 1+ edema in UEs and LEs Skin: chronic venous stasis present Objective Data Vital Signs Vital Signs: Vital Signs Temp Pulse Resp BP Pulse Ox O2 Del Method 03/30/23 12:00 94 16 95 Room Air 03/30/23 12:00 98.2 F 94 16 97/50 L 95 03/30/23 12:00 94 03/30/23 10:00 94 18 102/57 L 100 03/30/23 10:00 94 03/30/23 08:00 101 H 17 94 Room Air 03/30/23 08:00 98.3 F 101 H 17 98/62 L 94 03/30/23 08:00 101 H 03/30/23 06:00 88 17 90/57 L 98 03/30/23 06:00 88 03/30/23 0
--- NOTE | 2023-03-30 12:42 | P.PNNP_ITS ---
Progress Note: A&P Assessment and Plan (1) Polyuria: Code(s): R35.89 - Other polyuria Status: Acute Assessment and Plan: * in association with polydipsia initially * urine output seems to be running around 2 - 4L daily * this may be partly causing/contributing to issues with hypovolemia and hypotension * possibility this is normal response due to urinary retention/obstruction for unknown duration * concern is this could be diabetes insipidus * serum/urine osmolality pending * however, sodium low - normal (as opposed to elevated) * he is also getting significant IVFs, medications, and gtts * trial doses of DDAVP given -- difficult to say if much of a response has been noted * continue supportive therapy (2) Septic shock: Code(s): A41.9 - Sepsis, unspecified organism; R65.21 - Severe sepsis with septic shock Status: Acute Assessment and Plan: * clinically better * off vasopressors at this time * culture data noted * on antibiotic therapy (wound cultures with Enterococcus) * on midodrine and PRN IVF boluses * follow trend of hemodynamics (3) Acute pyelitis: Code(s): N10 - Acute pyelonephritis Status: Acute Assessment and Plan: * CT of A/P (on 03/20) noted: Bilateral hydronephrosis with urothelial en hancement, suspicious for ascending urinary tract infection and/or pyelonephritis * however, culture data without growth (blood and urine) to date * Urologly recommendations noted: * keep the Mcgovern catheter before voiding trial * continue to flush mcgovern to ensure patency (4) Anemia: Qualifiers: Anemia type: unspecified type Qualified Code(s): D64.9 - Anemia, unspecified Code(s): D64.9 - Anemia, unspecified Status: Acute Assessment and Plan: * suspect anemia of chronic disease * iron studies noted * suspect acute illness playing a role as well * follow trend of H/H * PRBC transfusion per protocol (5) Atrial fibrillation with rapid ventricular response: Code(s): I48.91 - Unspecified atrial fibrillation Status: Acute Assessment and Plan: * s/p cardioversion x 2 during this hospitalization * amiodarone + digoxin as well as metoprolol for rate control * on lovenox for anticoagulation * Cardiology following (6) Decubitus ulcer: Code(s): L89.90 - Pressure ulcer of unspecified site, unspecified stage Status: Acute Assessment and Plan: * General Surgery following * debridement and wound vac placement on 03/21/23 * s/p debridement of sacral decubitus ulcer, application of Axial Fill allograft, and placement of wound VAC on 03/29/23 * on antibiotics * local wound care * pain control (7) Diabetes mellitus type 2, uncontrolled: Status: Chronic Assessment and Plan: * follow accu-cheks * glycemic control 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 Subjective Date/time seen: 03/30/23 12:42 Interval history: Follow-up for polyuria. S/P debridement of sacral decubitus ulcer and placement of wound VAC yesterday by Surgery and patient tolerated reasonably well; still with significant urine output but stable hemodynamics. Exam Narrative: General: elderly male in NAD Heart: tachycardic, normal S1 and S2; no rub Lungs: clear anteriorly Abdomen: soft, nontender, nondistended, positive bowel sounds Extremities: no cyanosis or clubbing; trace - 1+ edema in UEs and LEs Skin: cultural centre manager
--- NOTE | 2023-03-30 14:12 | PCOTNOTE ---
Attempted to see Patient for OT treatment session this afternoon. Patient adamantly refused to participate due to having severe pain where he had a procedure on and a wound vac now. Patient was educated on the importance of movement for good blood flow and to assist in gaining strength. Patient stated he understood but is unable to handle the pain at this time. RN notified and aware
--- NOTE | 2023-03-30 14:18 | PM.PNGS ---
Progress Note: A&P Assessment and Plan (1) Decubitus ulcer: Code(s): L89.90 - Pressure ulcer of unspecified site, unspecified stage Status: Acute Assessment and Plan: Wound VAC dressing intact. Will change the wound VAC dressing on Tuesday. Discussed with wound care nurses I will be present for the dressing change. Continue other management as per rig builder. Subjective Subjective Date/Time Seen: 03/30/23 14:18 Interval history: Patient remains in the ICU. He has been stable. Minor pain in the sacral decubitus wound. Wound VAC has been working well without any leaks. Exam Skin: Other: Wound VAC in place on sacral decubitus wound. Output from the dressing is serosanguineous. No spreading redness. Wound VAC dressing intact. Objective Data Vital Signs Vital Signs: Vital Signs - 24 hr 03/29/23 15:14 03/29/23 15:30 03/29/23 15:45 Temperature 36.2 C L Pulse Rate 96 94 93 Respiratory Rate 20 18 16 Blood Pressure 96/63 L 93/61 L 98/58 L Pulse Oximetry 100 94 94 Oxygen Delivery Simple Face Mask Room Air Room Air Oxygen Flow Rate 6 03/29/23 15:58 03/29/23 15:55 03/29/23 16:00 Temperature Pulse Rate 106 H 99 94 Respiratory Rate 18 Blood Pressure 103/62 Pulse Oximetry 93 Oxygen Delivery Room Air Oxygen Flow Rate 03/29/23 16:00 03/29/23 18:00 03/29/23 20:00 Temperature 36.7 C Pulse Rate 94 99 93 Respiratory Rate 18 19 Blood Pressure 95/67 L Pulse Oximetry 93 98 Oxygen Delivery Room Air Oxygen Flow Rate 03/29/23 19:00 03/29/23 22:00 03/29/23 22:00 Temperature Pulse Rate 98 87 87 Respiratory Rate 16 20 Blood Pressure 94/64 L 98/60 L Pulse Oximetry 95 96 Oxygen Delivery Oxygen Flow Rate 03/29/23 20:00 03/29/23 20:00 03/30/23 00:00 Temperature 36.6 C Pulse Rate 93 89 Respiratory Rate 18 Blood Pressure 99/61 L Pulse Oximetry 96 99 Oxygen Delivery Room Air Oxygen Flow Rate 03/30/23 00:00 03/30/23 00:00 03/30/23 02:00 Temperature Pulse Rate 89 88 Respiratory Rate Blood Pressure Pulse Oximetry 96 Oxygen Delivery Room Air Oxygen Flow Rate 03/30/23 02:00 03/29/23 20:52 03/30/23 04:00 Temperature 36.6 C Pulse Rate 88 101 H Respiratory Rate 20 17 Blood Pressure 93/60 L 101/67 Pulse Oximetry 96 95 94 Oxygen Delivery Room Air Oxygen Flow Rate 03/30/23 04:00 03/30/23 04:00 03/30/23 06:00 Temperature Pulse Rate 88 88 Respiratory Rate Blood Pressure Pulse Oximetry 94 Oxygen Delivery Room Air Oxygen Flow Rate 03/30/23 06:00 03/30/23 08:00 03/30/23 08:00 Temperature 36.8 C Pulse Rate 88 101 H 101 H Respiratory Rate 17 17 Blood Pressure 90/57 L 98/62 L Pulse Oximetry 98 94 Oxygen Delivery Oxygen Flow Rate 03/30/23 08:00 03/30/23 10:00 03/30/23 10:00 Temperature Pulse Rate 101 H 94 94 Respiratory Rate 17 18 Blood Pressure 102/57 L Pulse Oximetry 94 100 Oxygen Delivery Room Air Oxygen Flow Rate 03/30/23 12:00 03/30/23 12:00 03/30/23 12:00 Temperature 36.8 C Pulse Rate 94 94 94 Respiratory Rate 16 16 Blood Pressure 97/50 L Pulse Oximetry 95 95 Oxygen Delivery Room Air Oxygen Flow Rate 03/30/23 14:00 Temperature Pulse Rate 117 H Respiratory Rate 19 Blood Pressure 93/51 L Pulse Oximetry 93 Oxygen Delivery Oxygen Flow Rate Intake/Output Intake/Output: Intake & Output 03/27/23 03/28/23 03/29/23 03/30/23 23:59 23:59 23:59 23:59 Intake Total 7501 4257 2637 2014 Output Total 4911 5700 4500 2700 [facility] [phone] Meds/Results Medications: Active Medications Generic Name Dose Route Start Last Admin Trade Name Freq PRN Reason Stop Dose Admin Acetaminophen 650 mg 03/09/23 04:45 03/29/23 22:27 Acetaminophen 325 Mg Tablet PO 650 mg Q6H PRN Administration Mild Pain (1-3) Or Fever Alteplase, Recombinant 2 mg 03/25/23 08:06 03/25/23 11:40
[2023-03-30 16:21] LABS: Glucose Point of Care 138 mg/dl (65-105)
--- NOTE | 2023-03-30 16:21 | PM.PNCARD ---
Progress Note: A&P Assessment and Plan (1) Atrial fibrillation with rapid ventricular response: Code(s): I48.91 - Unspecified atrial fibrillation Status: Acute Assessment and Plan: Paroxysmal atrial fibrillation, recurrent atrial fibrillation with RVR during this hospitalization. Pursuing rate control strategy; heart rate has been much better controlled the last few days.. Continue amiodarone p.o. 200mg daily Continue Digoxin, does level therapeutic Blood pressure still soft at times, running in the low 90s. One BP more stable will change digoxin to beta-alec. Anticoagulation on hold due to recent surgery on 03/21. Resume anticoagulation when okay from a surgical standpoint. Cannot pursue cardioversion until patient can tolerate uninterrupted anticoagulation. If we were to pursue cardioversion, it would have to be KATHY guided as anticoagulation was held and with Anesthesia team. (2) Chronic anticoagulation: Code(s): Z79.01 - half-way (current) use of anticoagulants Status: Acute Assessment and Plan: Anticoagulation on hold due to recent surgery on 03/21. Resume anticoagulation when okay from a surgical standpoint. (3) Septic shock: Code(s): A41.9 - Sepsis, unspecified organism; R65.21 - Severe sepsis with septic shock Status: Acute Assessment and Plan: Improving, off pressors. Subjective Date/time seen: 03/30/23 16:21 Interval history: Reason for visit: Atrial fibrillation with RVR 73 year old male with coronary artery disease and paroxysmal atrial fibrillation.? Patient was hospitalized here for a number of days now with problems with sepsis, UTI, sacral decubitus.? Asked to sign back on the patient's case because of AF with RVR.? He is completely asymptomatic of this arrhythmia.? Started on intravenous amiodarone per the hospitalist service Date of service 03/14/2023: No complaints this morning.? He remains in atrial fibrillation with rate typically between 100-120bpm.? He is asymptomatic.? Remains on amiodarone drip. Date of service 03/15/2023: Heart rate remains not well controlled.? However, he is still asymptomatic.? He does not have any chest pain, shortness of breath, or palpitations.? Date of service 03/16: Still with intermittent RVR. Patient was hyoptensive this morning, Metoprolol could not be given due to SBP in the 70s. Date of service 03/17: Yesterday afternoon, Amiodarone drip was weaned off, however later he went back into RVR and was given a dose of Digoxin IV overnight and then later on an Amiodarone bolus. HR in the 130s this morning but patient remains asymptomatic from it and is comfortably sleeping. Date of service 03/19/2023: Heart rate is still elevated despite high-dose metoprolol, amiodarone and digoxin. He denies any chest pain or shortness of breath Date of service 03/20/2023: Transfer to the ICU yesterday because of altered mental status and lethargy. He denies any chest pain or shortness of breath. Heart rate is still elevated but a bit better controlled. Date of service 03/22/2023: Patient states he is feeling well. In atrial fibrillation, HR in the 110s-120s. Asymptomatic from it. Remains on Amiodarone drip and Levophed drip. Date of service 03/23: Remains in atrial fibrillation but rates are better. Still on Levophed. Patient resting comfortably. Date of service 03/24: Heart rate in the 110s during my evaluation this morning. Per General Surgery, may need to take patient back to the operating room in the next couple of days for debridement of the remaining portion of the nonviable sacral tissue. Date of service 03/29/2023: Rate is better controlled today, in the 70's. Off pressors at this point and BP stable. Resting comfortably in bed at the time of my visit. Amiodarone changed to p.o.. Date of service 03/30/2023: Patient feels exceptionally well this morning. Telemetry shows a flutter rate 70s to 116. Digoxin level is 1.0. Review of
--- NOTE | 2023-03-30 16:21 | WPDPN ---
Progress Note: A&P Assessment and Plan (1) Septic shock: Code(s): A41.9 - Sepsis, unspecified organism; R65.21 - Severe sepsis with septic shock Status: Acute Assessment and Plan: Resolved (2) Acute pyelitis: Code(s): N10 - Acute pyelonephritis Status: Acute (3) Hydronephrosis: Code(s): N13.30 - Unspecified hydronephrosis Status: Acute (4) Acute renal insufficiency: Code(s): N28.9 - Disorder of kidney and ureter, unspecified Status: Acute (5) Anemia: Qualifiers: Anemia type: unspecified type Qualified Code(s): D64.9 - Anemia, unspecified Code(s): D64.9 - Anemia, unspecified Status: Acute (6) Atrial fibrillation with RVR: Code(s): I48.91 - Unspecified atrial fibrillation Status: Acute Assessment and Plan: On IV amiodarone. Continue anticoagulation. Transitioning to oral metoprolol. Appreciate cardiology input. 03/25/2023 interval history, 73-year-old male with a atrial fibrillation RVR seen by cardiology being treated with amiodarone drip and metoprolol was added however patient blood pressure was soft unable to tolerate metoprolol held the medication, patient was seen by Cardiology digoxin was added HR is trending down and blood pressure is improving, patient has significant sacral decubital ulcers and necrosis, was seen by surgery service, patient will need surgical debridement however patient is not a good candidate for the surgery, once cardiac issues have stabilized may consider surgical interventon, on 03/19 patient remained clinically stable however he had developed fever and more somnolent, suspect patient has again developed sepsis from his wound, will collect blood culture and wound culture start the patient, ceftriaxone, 2 g q.day, Flagyl 500 mg q.8 and vancomycin per pharmacy later in the evening patient was transferred to ICU as patient was hypotensive and started on levophed, ct scan abdomen is suspicious pyelonephritis, and now patient is being treated with Meropenem, flagyl and vancomcin, urine and blood culture no growth so far, on 03/21 patient was seen by surgery service had debridement of the wound, wound growing Enterococcus species, on 03/24 patient blood pressure was improving and Levophed was on hold however patient is requiring Levophed as his BP is still soft, however today patient is more alert and oriented, his duaghter is present and gave updates, seen by hvac estimator and will monitor patient will be seen television tube inspector and further recommendation to follow. 03/26/2023: 73-year-old male with a atrial fibrillation RVR seen by cardiology being treated with amiodarone drip and metoprolol was added however patient blood pressure was soft unable to tolerate metoprolol held the medication, patient was seen by Cardiology digoxin was added HR is trending down and blood pressure is improving, patient has significant sacral decubital ulcers and necrosis, was seen by surgery service, patient will need surgical debridement however patient is not a good candidate for the surgery, once cardiac issues have stabilized may consider surgical interventon, on 03/19 patient remained clinically stable however he had developed fever and more somnolent, suspect patient has again developed sepsis from his wound, will collect blood culture and wound culture start the patient, ceftriaxone, 2 g q.day, Flagyl 500 mg q.8 and vancomycin per pharmacy later in the evening patient was transferred to ICU as patient was hypotensive and started on levophed, ct scan abdomen is suspicious pyelonephritis, and now patient is being treated with Meropenem, flagyl and vancomcin, urine and blood culture no growth so far, on 03/21 patient was seen by surgery service had debridement of the wound, wound growing Enterococcus species, on 03/24 patient blood pressure was improving and Levophed was on hold however patient is requiring Levophed as his BP is still soft,more alert. cont
[2023-03-30 20:34] LABS: Glucose Point of Care 192 mg/dl (65-105)
[2023-03-30] MEDS: INSULIN GLARGINE (*BKC) 100 UNITS/ML 15 UNITS SUB-Q (20:37)
[2023-03-31] VITALS (17 sets, daily range): BP systolic 91–120; BP diastolic 51–72; PULSE 84–120; RESP 15–23; TEMP 36.2–37.1; O2SAT 94–100
[2023-03-31] MEDS: ALTEPLASE 2 MG VIAL (CATHFLO) IV PUSH (00:17)
[2023-03-31] MEDS: ACETAMINOPHEN 325 MG TABLET 650 MG PO ×2 (01:21→15:03)
[2023-03-31] MEDS: AMPICILLIN SULB 3 GM/NS 100 ML 3 GM/100 ML VIAL IVPB ×2 (04:24→09:30)
[2023-03-31 04:52] LABS: Hematocrit 28.7 % (42.0-52.0); Hemoglobin 8.3 g/dL (14.0-18.0); Mean Corpuscular HGB Conc 28.9 g/dl (32-36); Mean Corpuscular Hemoglobin 25.4 pg (26-34); Mean Corpuscular Volume 87.8 fl (80-100); Mean Platelet Volume 10.4 fl (7.4-10.4); Platelet Count Result 176 k/mm3 (150-375); Red Blood Count 3.27 M/mm3 (4.6-6.20); Red Cell Distribution Width 20.1 % (11.5-14.5); White Blood Count 4.4 K/mm3 (4.5-10.0)
[2023-03-31] MEDS: CENTRAL LINE FLUSH 10 ML IV PUSH ×3 (05:02→20:45)
[2023-03-31 05:04] LABS: Alanine Aminotransferase 19 U/L (6-50); Albumin Level 1.7 g/dL (3.5-5.1); Alkaline Phosphatase 152 U/L (38-126); Anion Gap -1 mmol/L (8-16); Aspartate Amino Transferase 31 U/L (17-59); Bilirubin,Total 0.4 mg/dL (0.2-1.3); Blood Urea Nitrogen 27 mg/dL (9-20); Calcium 6.4 mg/dL (8.4-10.2); Carbon Dioxide 27 mmol/L (22-30); Chloride 108 mmol/L (98-107); Estimated CRCL calculation 124 ml/min; Estimated Glomerular Filt Rate > 60; Glucose 156 mg/dL (65-110); Magnesium 1.7 mg/dL (1.6-2.3); Potassium 3.6 mmol/L (3.4-5.0); Sodium 134 mmol/L (137-145)
[2023-03-31] MEDS: metFORMIN HCL XR 500 MG TAB.SR.24H 2000 MG PO (09:00)
[2023-03-31] MEDS: AMIODARONE HCL 200 MG TABLET PO (09:00)
[2023-03-31] MEDS: ASPIRIN 81 MG CHEWABLE TABLET PO (09:00)
[2023-03-31] MEDS: PRAVASTATIN SODIUM 20 MG TABLET 40 MG PO (09:27)
[2023-03-31] MEDS: PANTOPRAZOLE SODIUM IV 40 MG VIAL IV PUSH ×2 (09:27→20:44)
[2023-03-31] MEDS: PREGABALIN (*CRX) 75 MG CAPSULE PO (09:28)
[2023-03-31] MEDS: ENOXAPARIN 40 MG/0.4 ML SYRINGE SUB-Q (09:29)
[2023-03-31] MEDS: DIGOXIN 250 MCG TABLET PO (09:29)
[2023-03-31] MEDS: MIDODRINE HCL 10 MG TABLET PO ×3 (09:29→17:20)
[2023-03-31] MEDS: EMPAGLIFLOZIN 25 MG TABLET PO (09:29)
[2023-03-31] MEDS: TAMSULOSIN HCL 0.4 MG CAPSULE PO (09:29)
[2023-03-31] MEDS: MONTELUKAST SODIUM 10 MG TABLET PO (09:29)
[2023-03-31] MEDS: TOLNAFTATE 1% POWDER 45 GM BTL 1 APPLIC TOPICAL ×2 (09:30→20:44)
[2023-03-31] MEDS: FINASTERIDE 5 MG TABLET PO (09:30)
[2023-03-31] MEDS: ERGOCALCIFEROL 50,000 UNITS CAPSULE 50000 UNITS PO (10:00)
--- NOTE | 2023-03-31 11:06 | PM.PNGS ---
Progress Note: A&P Assessment and Plan (1) Decubitus ulcer: Code(s): L89.90 - Pressure ulcer of unspecified site, unspecified stage Status: Acute Assessment and Plan: Wound VAC dressing intact. Will change the dressing tomorrow with the wound care nurses. Discussed changing patient from IV to oral antibiotics with the ID pharmacist. Okay from my standpoint to switch to oral antibiotics. Subjective Subjective Date/Time Seen: 03/31/23 11:06 Interval history: Patient still in the ICU. Likely he has been stable. No issues with the wound VAC. He is still on Unasyn for IV antibiotics. Exam Skin: Other: Wound VAC dressing intact on sacral decubitus ulcer. Output from the VAC is old bloody serous. Objective Data Vital Signs Vital Signs: Vital Signs - 24 hr 03/30/23 12:00 03/30/23 12:00 03/30/23 12:00 Temperature 36.8 C Pulse Rate 94 94 94 Respiratory Rate 16 16 Blood Pressure 97/50 L Pulse Oximetry 95 95 Oxygen Delivery Room Air 03/30/23 14:00 03/30/23 16:00 03/30/23 16:00 Temperature 36.9 C Pulse Rate 117 H 118 H 118 H Respiratory Rate 19 20 Blood Pressure 93/51 L 94/57 L Pulse Oximetry 93 95 Oxygen Delivery 03/30/23 16:00 03/30/23 18:00 03/30/23 20:00 Temperature 36.9 C Pulse Rate 118 H 114 H 114 H Respiratory Rate 20 18 19 Blood Pressure 97/52 L 104/52 L Pulse Oximetry 95 94 93 Oxygen Delivery Room Air 03/30/23 20:00 03/30/23 20:00 03/30/23 22:00 Temperature Pulse Rate 114 H 115 H Respiratory Rate 20 Blood Pressure 104/51 L Pulse Oximetry 94 94 Oxygen Delivery Room Air 03/31/23 00:00 03/31/23 00:00 03/31/23 00:00 Temperature 37.1 C Pulse Rate 116 H 115 H Respiratory Rate 19 Blood Pressure 91/51 L Pulse Oximetry 95 95 Oxygen Delivery Room Air 03/31/23 02:00 03/31/23 02:00 03/30/23 22:00 Temperature Pulse Rate 117 H 117 H 115 H Respiratory Rate 18 Blood Pressure 105/60 Pulse Oximetry 94 Oxygen Delivery 03/31/23 04:00 03/31/23 04:00 03/31/23 04:00 Temperature 36.7 C Pulse Rate 100 100 Respiratory Rate 18 Blood Pressure 105/59 L Pulse Oximetry 96 97 Oxygen Delivery Room Air 03/31/23 06:00 03/31/23 06:00 03/31/23 08:00 Temperature 36.6 C Pulse Rate 95 95 111 H Respiratory Rate 19 20 Blood Pressure 96/57 L 109/65 Pulse Oximetry 96 97 Oxygen Delivery 03/31/23 09:00 03/31/23 09:29 Temperature Pulse Rate 111 H 118 H Respiratory Rate Blood Pressure Pulse Oximetry Oxygen Delivery Intake/Output Intake/Output: Intake & Output 03/28/23 03/29/23 03/30/23 03/31/23 23:59 23:59 23:59 23:59 Intake Total 4257 2637 3631 340 Output Total 5700 6800 1300 2575 [facility] -[phone] -[phone] -1169 -2235 Meds/Results Medications: Active Medications Generic Name Dose Route Start Last Admin Trade Name Freq PRN Reason Stop Dose Admin Acetaminophen 650 mg 03/09/23 04:45 03/31/23 01:21 Acetaminophen 325 Mg Tablet PO 650 mg Q6H PRN Administration Mild Pain (1-3) Or Fever Alteplase, Recombinant 2 mg 03/25/23 08:06 03/31/23 00:17 Alteplase 2 Mg Vial (Cathflo) IV PUSH 2 mg ONCE PRN Administration Line Occlusion Amiodarone HCl 200 mg 03/29/23 09:50 03/31/23 09:00 Amiodarone Hcl 200 Mg Tablet PO 200 mg DAILY@0800 [facility] Administration Apixaban 5 mg 03/09/23 09:00 03/19/23 20:38 Apixaban 5 Mg Tablet PO 5 mg Q12HR YESSICA Administration Aspirin 81 mg 03/09/23 08:00 03/31/23 09:00 Aspirin 81 Mg Chewable Tablet PO 81 mg DAILY@0800 [facility] Administration Bisacodyl 5 mg 03/15/23 13:23 03/19/23 09:41 Bisacodyl 5 Mg Tablet Ec PO 5 mg QAM PRN Administration Constipation Dextrose 12.5 gm 03/09/23 08:10 Dextrose 50% 25 Gm/50 Ml Syringe IV PUSH PRN PRN Hypoglycemia Protocol Digoxin 250 mcg 03/18/23 09:00 03/31/23 09:29 Digoxin 250 Mcg Tablet PO 250 mcg QAM YESSICA Adm
[2023-03-31 11:12] LABS: Glucose Point of Care 131 mg/dl (65-105)
[2023-03-31] MEDS: oxyCODONE/ACETAMINOPHEN (*CRX) 5-325 MG TABLET 1 TABLET PO ×3 (12:11→22:03)
[2023-03-31 12:21] LABS: Glucose Point of Care 152 mg/dl (65-105)
--- NOTE | 2023-03-31 15:06 | PCOTNOTE ---
Patient refused treatment this session. Patient reported he was in to much pain. Patient also declined completing activities supine in the bed. Nursing notified.
--- NOTE | 2023-03-31 15:30 | WPDPN ---
Progress Note: A&P Assessment and Plan (1) Septic shock: Code(s): A41.9 - Sepsis, unspecified organism; R65.21 - Severe sepsis with septic shock Status: Acute Assessment and Plan: Resolved (2) Acute pyelitis: Code(s): N10 - Acute pyelonephritis Status: Acute (3) Hydronephrosis: Code(s): N13.30 - Unspecified hydronephrosis Status: Acute (4) Acute renal insufficiency: Code(s): N28.9 - Disorder of kidney and ureter, unspecified Status: Acute (5) Anemia: Qualifiers: Anemia type: unspecified type Qualified Code(s): D64.9 - Anemia, unspecified Code(s): D64.9 - Anemia, unspecified Status: Acute (6) Atrial fibrillation with RVR: Code(s): I48.91 - Unspecified atrial fibrillation Status: Acute Assessment and Plan: On IV amiodarone. Continue anticoagulation. Transitioning to oral metoprolol. Appreciate cardiology input. 03/25/2023 interval history, 73-year-old male with a atrial fibrillation RVR seen by cardiology being treated with amiodarone drip and metoprolol was added however patient blood pressure was soft unable to tolerate metoprolol held the medication, patient was seen by Cardiology digoxin was added HR is trending down and blood pressure is improving, patient has significant sacral decubital ulcers and necrosis, was seen by surgery service, patient will need surgical debridement however patient is not a good candidate for the surgery, once cardiac issues have stabilized may consider surgical interventon, on 03/19 patient remained clinically stable however he had developed fever and more somnolent, suspect patient has again developed sepsis from his wound, will collect blood culture and wound culture start the patient, ceftriaxone, 2 g q.day, Flagyl 500 mg q.8 and vancomycin per pharmacy later in the evening patient was transferred to ICU as patient was hypotensive and started on levophed, ct scan abdomen is suspicious pyelonephritis, and now patient is being treated with Meropenem, flagyl and vancomcin, urine and blood culture no growth so far, on 03/21 patient was seen by surgery service had debridement of the wound, wound growing Enterococcus species, on 03/24 patient blood pressure was improving and Levophed was on hold however patient is requiring Levophed as his BP is still soft, however today patient is more alert and oriented, his duaghter is present and gave updates, seen by trimmer tailer and will monitor patient will be seen manager land and further recommendation to follow. 03/26/2023: 73-year-old male with a atrial fibrillation RVR seen by cardiology being treated with amiodarone drip and metoprolol was added however patient blood pressure was soft unable to tolerate metoprolol held the medication, patient was seen by Cardiology digoxin was added HR is trending down and blood pressure is improving, patient has significant sacral decubital ulcers and necrosis, was seen by surgery service, patient will need surgical debridement however patient is not a good candidate for the surgery, once cardiac issues have stabilized may consider surgical interventon, on 03/19 patient remained clinically stable however he had developed fever and more somnolent, suspect patient has again developed sepsis from his wound, will collect blood culture and wound culture start the patient, ceftriaxone, 2 g q.day, Flagyl 500 mg q.8 and vancomycin per pharmacy later in the evening patient was transferred to ICU as patient was hypotensive and started on levophed, ct scan abdomen is suspicious pyelonephritis, and now patient is being treated with Meropenem, flagyl and vancomcin, urine and blood culture no growth so far, on 03/21 patient was seen by surgery service had debridement of the wound, wound growing Enterococcus species, on 03/24 patient blood pressure was improving and Levophed was on hold however patient is requiring Levophed as his BP is still soft,more alert. cont
[2023-03-31 17:30] LABS: Glucose Point of Care 141 mg/dl (65-105)
[2023-03-31] MEDS: INSULIN GLARGINE (*BKC) 100 UNITS/ML 15 UNITS SUB-Q (20:44)
[2023-03-31 21:00] LABS: Glucose Point of Care 164 mg/dl (65-105)
--- NOTE | 2023-03-31 22:02 | PC.NURSE ---
This patient, John Warren, was transferred to [200-1 ] on 03/31/23 at 2100. Personal belongings sent with patient. Report given to [Jaz ]. Appropriate documentation sent with patient.
[2023-03-31] MEDS: AMOXICILLIN 500 MG CAPSULE 1000 MG PO (22:03)
--- NOTE | 2023-03-31 22:47 | PC.NURSE ---
This patient, John Warren, was received from [ICU 3 ] on 03/31/23 at 2100. Patient/family oriented to unit policies and routines
[2023-04-01] VITALS (17 sets, daily range): BP systolic 100–112; BP diastolic 49–67; PULSE 92–125; RESP 12–18; TEMP 36.1–37.2; O2SAT 95–99
[2023-04-01] MEDS: CENTRAL LINE FLUSH 10 ML IV PUSH ×3 (05:13→21:03)
[2023-04-01] MEDS: AMOXICILLIN 500 MG CAPSULE 1000 MG PO ×3 (05:13→21:47)
[2023-04-01 05:22] LABS: Hemoglobin 8.5 g/dL (14.0-18.0); Mean Corpuscular HGB Conc 29.3 g/dl (32-36); Mean Corpuscular Hemoglobin 25.2 pg (26-34); Mean Corpuscular Volume 86.1 fl (80-100); Mean Platelet Volume 10.3 fl (7.4-10.4); Platelet Count Result 172 k/mm3 (150-375); Red Blood Count 3.37 M/mm3 (4.6-6.20); Red Cell Distribution Width 20.1 % (11.5-14.5); White Blood Count 4.6 K/mm3 (4.5-10.0)
[2023-04-01 05:36] LABS: Alanine Aminotransferase 19 U/L (6-50); Albumin Level 2.1 g/dL (3.5-5.1); Alkaline Phosphatase 148 U/L (38-126); Anion Gap 0 mmol/L (8-16); Aspartate Amino Transferase 26 U/L (17-59); Bilirubin,Total 0.4 mg/dL (0.2-1.3); Blood Urea Nitrogen 29 mg/dL (9-20); Calcium 7.4 mg/dL (8.4-10.2); Carbon Dioxide 30 mmol/L (22-30); Chloride 106 mmol/L (98-107); Estimated CRCL calculation 105 ml/min; Estimated Glomerular Filt Rate > 60; Glucose 126 mg/dL (65-110); Magnesium 1.7 mg/dL (1.6-2.3); Potassium 3.8 mmol/L (3.4-5.0); Sodium 136 mmol/L (137-145)
[2023-04-01 08:49] LABS: Glucose Point of Care 119 mg/dl (65-105)
[2023-04-01] MEDS: ENOXAPARIN 40 MG/0.4 ML SYRINGE SUB-Q (09:21)
[2023-04-01] MEDS: PREGABALIN (*CRX) 75 MG CAPSULE PO (09:21)
[2023-04-01] MEDS: EMPAGLIFLOZIN 25 MG TABLET PO (09:21)
[2023-04-01] MEDS: metFORMIN HCL XR 500 MG TAB.SR.24H 2000 MG PO (09:21)
[2023-04-01] MEDS: ASPIRIN 81 MG CHEWABLE TABLET PO (09:21)
[2023-04-01] MEDS: MONTELUKAST SODIUM 10 MG TABLET PO (09:21)
[2023-04-01] MEDS: PRAVASTATIN SODIUM 20 MG TABLET 40 MG PO (09:21)
[2023-04-01] MEDS: TAMSULOSIN HCL 0.4 MG CAPSULE PO (09:21)
[2023-04-01] MEDS: DIGOXIN 250 MCG TABLET PO (09:22)
[2023-04-01] MEDS: MIDODRINE HCL 10 MG TABLET PO ×3 (09:22→18:32)
[2023-04-01] MEDS: TOLNAFTATE 1% POWDER 45 GM BTL 1 APPLIC TOPICAL ×2 (09:22→21:03)
[2023-04-01] MEDS: PANTOPRAZOLE SODIUM IV 40 MG VIAL IV PUSH ×2 (09:22→21:00)
[2023-04-01] MEDS: AMIODARONE HCL 200 MG TABLET PO (09:22)
[2023-04-01] MEDS: FINASTERIDE 5 MG TABLET PO (09:22)
[2023-04-01] MEDS: oxyCODONE/ACETAMINOPHEN (*CRX) 5-325 MG TABLET 1 TABLET PO ×2 (09:24→12:47)
[2023-04-01 11:59] LABS: Glucose Point of Care 145 mg/dl (65-105)
--- NOTE | 2023-04-01 13:39 | PM.PNGS ---
Progress Note: A&P Assessment and Plan (1) Sacral decubitus ulcer: Qualifiers: Pressure injury stage: unspecified pressure injury stage Qualified Code(s): L89.159 - Pressure ulcer of sacral region, unspecified stage Code(s): L89.159 - Pressure ulcer of sacral region, unspecified stage Status: Acute Assessment and Plan: Patient sacral decubitus wound continues to heal. Wound VAC was changed today and the Adaptic gauze was removed as well. The allograft has incorporated with the granulation tissue and is augmenting the healing process. Wound VAC was placed again and will be changed again in 3 days. Continue present care as per medical team. It will be best the patient can continue having a wound VAC when he was eventually discharged from the hospital . Subjective Subjective Date/Time Seen: 04/01/23 13:39 Interval history: Patient seen today for follow-up on the sacral decubitus wound and wound VAC. It has been 3 days since he has had the allograft and wound VAC placed. He has been clinically stable. Exam Skin: Other: Wound VAC was removed and the underlying wound is starting to get more granulation tissue at the base. No nonviable tissue was noted. No odor was noted. Wound is clean. Objective Data Vital Signs Vital Signs: Vital Signs - 24 hr 03/31/23 14:30 03/31/23 14:00 03/31/23 15:26 Temperature Pulse Rate 102 H 96 90 Respiratory Rate 15 19 18 Blood Pressure 120/61 105/57 L Pulse Oximetry 94 97 96 Oxygen Delivery Room Air Fraction of Inspired Oxygen 03/31/23 16:00 03/31/23 14:00 03/31/23 16:00 Temperature 36.4 C Pulse Rate 111 H 97 110 H Respiratory Rate 23 H Blood Pressure 101/53 L Pulse Oximetry 100 Oxygen Delivery Fraction of Inspired Oxygen 03/31/23 18:00 03/31/23 18:00 03/31/23 16:00 Temperature Pulse Rate 119 H 120 H Respiratory Rate 18 Blood Pressure 112/52 L Pulse Oximetry 97 Oxygen Delivery Room Air Fraction of Inspired Oxygen 03/31/23 20:00 03/31/23 20:00 03/31/23 20:00 Temperature 36.4 C L Pulse Rate 100 117 H Respiratory Rate 17 Blood Pressure 102/52 L Pulse Oximetry 94 94 Oxygen Delivery Room Air Fraction of Inspired Oxygen 03/31/23 22:00 03/31/23 23:41 04/01/23 00:00 Temperature 36.2 C L Pulse Rate 98 94 118 H Respiratory Rate 18 Blood Pressure 98/51 L Pulse Oximetry 98 Oxygen Delivery Fraction of Inspired Oxygen 04/01/23 00:00 04/01/23 02:00 04/01/23 03:43 Temperature Pulse Rate 118 H 94 98 Respiratory Rate 18 Blood Pressure Pulse Oximetry 98 Oxygen Delivery Room Air Fraction of Inspired Oxygen 98 04/01/23 03:43 04/01/23 04:00 04/01/23 05:25 Temperature 36.2 C L Pulse Rate 96 97 92 Respiratory Rate 18 18 Blood Pressure 100/63 Pulse Oximetry 98 95 Oxygen Delivery Room Air Fraction of Inspired Oxygen 98 04/01/23 08:52 04/01/23 09:22 04/01/23 09:22 Temperature 36.6 C Pulse Rate 115 H 115 H 115 H Respiratory Rate 14 Blood Pressure 112/67 Pulse Oximetry 96 Oxygen Delivery Fraction of Inspired Oxygen 04/01/23 08:00 04/01/23 10:00 04/01/23 12:07 Temperature 37.2 C Pulse Rate 99 123 H 125 H Respiratory Rate 12 Blood Pressure 102/54 L Pulse Oximetry 97 Oxygen Delivery Fraction of Inspired Oxygen Intake/Output Intake/Output: Intake & Output 03/29/23 03/30/23 03/31/23 04/01/23 23:59 23:59 23:59 23:59 Intake Total 2637 3631 3355 490 Output Total 4500 4800 5377 1999 Balance -1863 -1169 -1980 -1510 Meds/Results Medications: Active Medications Generic Name Dose Route Start Last Admin Trade Name Wilmerq PRN Reason Stop Dose Admin Acetaminophen 650 mg 03/09/23 04:45 03/31/23 15:03 Acetaminophen 325 Mg Tablet PO 650 mg Q6H PRN Administration Mild Pain (1-3) Or Fever Alteplase, Recombinant 2 mg 03/25/23 08:06 03/31/23 00:17 Alteplase 2 Mg Vial
--- NOTE | 2023-04-01 15:51 | P.PNNP_ITS ---
Progress Note: A&P Assessment and Plan (1) Polyuria: Code(s): R35.89 - Other polyuria Status: Acute Assessment and Plan: * in association with polydipsia * urine output seems to be running around 2 - 4L daily (if not more) * this may be partly causing/contributing to issues with hypovolemia and hypotension * possibility this is normal response due to urinary retention/obstruction for unknown duration * obstructive uropathy can sometimes lead to nephrogenic diabetes insipidus * concern is this could be diabetes insipidus -- although testing to date not completely consistent with this * serum osmolality 290 and urine osmolality 378 * however, serum sodium low - normal (as opposed to usually elevated in DI) * was getting significant IVFs, medications, and gtts due to #2 on admission (but has since been weaned off) * s/p trial doses of DDAVP given -- no real significant decrease/drop in urine output noted * may ultimately need outpatient endocrinology referral for testing once his acute illness resolves * continue supportive therapy (2) Septic shock: Code(s): A41.9 - Sepsis, unspecified organism; R65.21 - Severe sepsis with septic shock Status: Acute Assessment and Plan: * clinically better/resolved * off vasopressors at this time * culture data noted * on antibiotic therapy (wound cultures with Enterococcus) * on midodrine and PRN IVF boluses * follow trend of hemodynamics (3) Acute pyelitis: Code(s): N10 - Acute pyelonephritis Status: Acute Assessment and Plan: * CT of A/P (on 03/20) noted: Bilateral hydronephrosis with urothelial enhancement, suspicious for ascending urinary tract infection and/or pyelonephritis * however, culture data without growth (blood and urine) to date * Urologly recommendations noted: * keep the Mcgovern catheter before voiding trial * continue to flush mcgovern to ensure patency (4) Anemia: Qualifiers: Anemia type: unspecified type Qualified Code(s): D64.9 - Anemia, unspecified Code(s): D64.9 - Anemia, unspecified Status: Acute Assessment and Plan: * suspect anemia of chronic disease * iron studies noted * suspect acute illness playing a role as well * follow trend of H/H * PRBC transfusion per protocol (5) Atrial fibrillation with rapid ventricular response: Code(s): I48.91 - Unspecified atrial fibrillation Status: Acute Assessment and Plan: * s/p cardioversion x 2 during this hospitalization * amiodarone + digoxin as well as metoprolol for rate control * on lovenox for anticoagulation * Cardiology following (6) Decubitus ulcer: Code(s): L89.90 - Pressure ulcer of unspecified site, unspecified stage Status: Acute Assessment and Plan: * General Surgery following * debridement and wound vac placement on 03/21/23 * s/p debridement of sacral decubitus ulcer, application of Axial Fill allograft, and placement of wound VAC on 03/29/23 * on antibiotics * local wound care * pain control (7) Diabetes mellitus type 2, uncontrolled: Status: Chronic Assessment and Plan: * follow accu-cheks * glycemic control per hospitalists/hand meat salter Will continue to follow intermittently. Subjective Date/time seen: 04/01/23 13:51 Interval history: Follow-up for polyuria. Continues to have significant urine output but remains hemodynamically stable at this time; Surgery continue to follow with regard to sacral decubitus ul
--- NOTE | 2023-04-01 15:51 | PM.PNNEP ---
Progress Note: A&P Assessment and Plan (1) Polyuria: Code(s): R35.89 - Other polyuria Status: Acute Assessment and Plan: in association with polydipsia urine output seems to be running around 2 - 4L daily (if not more) this may be partly causing/contributing to issues with hypovolemia and hypotension possibility this is normal response due to urinary retention/obstruction for unknown duration obstructive uropathy can sometimes lead to nephrogenic diabetes insipidus concern is this could be diabetes insipidus -- although testing to date not completely consistent with this serum osmolality 290 and urine osmolality 378 however, serum sodium low - normal (as opposed to usually elevated in DI) was getting significant IVFs, medications, and gtts due to #2 on admission (but has since been weaned off) s/p trial doses of DDAVP given -- no real significant decrease/drop in urine output noted may ultimately need outpatient endocrinology referral for testing once his acute illness resolves continue supportive therapy (2) Septic shock: Code(s): A41.9 - Sepsis, unspecified organism; R65.21 - Severe sepsis with septic shock Status: Acute Assessment and Plan: clinically better/resolved off vasopressors at this time culture data noted on antibiotic therapy (wound cultures with Enterococcus) on midodrine and PRN IVF boluses follow trend of hemodynamics (3) Acute pyelitis: Code(s): N10 - Acute pyelonephritis Status: Acute Assessment and Plan: CT of A/P (on 03/20) noted: Bilateral hydronephrosis with urothelial enhancement, suspicious for ascending urinary tract infection and/or pyelonephritis however, culture data without growth (blood and urine) to date Urologly recommendations noted: keep the Mcgovern catheter before voiding trial continue to flush mcgovern to ensure patency (4) Anemia: Qualifiers: Anemia type: unspecified type Qualified Code(s): D64.9 - Anemia, unspecified Code(s): D64.9 - Anemia, unspecified Status: Acute Assessment and Plan: suspect anemia of chronic disease iron studies noted suspect acute illness playing a role as well follow trend of H/H PRBC transfusion per protocol (5) Atrial fibrillation with rapid ventricular response: Code(s): I48.91 - Unspecified atrial fibrillation Status: Acute Assessment and Plan: s/p cardioversion x 2 during this hospitalization amiodarone + digoxin as well as metoprolol for rate control on lovenox for anticoagulation Cardiology following (6) Decubitus ulcer: Code(s): L89.90 - Pressure ulcer of unspecified site, unspecified stage Status: Acute Assessment and Plan: General Surgery following debridement and wound vac placement on 03/21/23 s/p debridement of sacral decubitus ulcer, application of Axial Fill allograft, and placement of wound VAC on 03/29/23 on antibiotics local wound care pain control (7) Diabetes mellitus type 2, uncontrolled: Status: Chronic Assessment and Plan: follow accu-cheks glycemic control per hospitalists/dressmaker or tailor Will continue to follow intermittently. Subjective Date/time seen: 04/01/23 13:51 Interval history: Follow-up for polyuria. Continues to have significant urine output but remains hemodynamically stable at this time; Surgery continue to follow with regard to sacral decubitus ulcer with recent debridement + graft placement and wound vac placement; no apparent distress voiced; no issues overnight or earlier this morning. Exam Narrative: General: elderly male in NAD Heart: tachycardic, normal S1 and S2; no rub Lungs: clear anteriorly Abdomen: soft, nontender, nondistended, positive bowel sounds Extremities: no cyanosis or clubbing; trace edema in UEs and LEs Skin: chronic venous stasis changes notged Objective Data Vital Signs Aria
[2023-04-01 17:00] LABS: Glucose Point of Care 129 mg/dl (65-105)
--- NOTE | 2023-04-01 17:10 | WPDPN ---
Progress Note: A&P Assessment and Plan (1) Septic shock: Code(s): A41.9 - Sepsis, unspecified organism; R65.21 - Severe sepsis with septic shock Status: Acute Assessment and Plan: Resolved (2) Acute pyelitis: Code(s): N10 - Acute pyelonephritis Status: Acute (3) Hydronephrosis: Code(s): N13.30 - Unspecified hydronephrosis Status: Acute (4) Acute renal insufficiency: Code(s): N28.9 - Disorder of kidney and ureter, unspecified Status: Acute (5) Anemia: Qualifiers: Anemia type: unspecified type Qualified Code(s): D64.9 - Anemia, unspecified Code(s): D64.9 - Anemia, unspecified Status: Acute (6) Atrial fibrillation with RVR: Code(s): I48.91 - Unspecified atrial fibrillation Status: Acute Assessment and Plan: On IV amiodarone. Continue anticoagulation. Transitioning to oral metoprolol. Appreciate cardiology input. 03/25/2023 interval history, 73-year-old male with a atrial fibrillation RVR seen by cardiology being treated with amiodarone drip and metoprolol was added however patient blood pressure was soft unable to tolerate metoprolol held the medication, patient was seen by Cardiology digoxin was added HR is trending down and blood pressure is improving, patient has significant sacral decubital ulcers and necrosis, was seen by surgery service, patient will need surgical debridement however patient is not a good candidate for the surgery, once cardiac issues have stabilized may consider surgical interventon, on 03/19 patient remained clinically stable however he had developed fever and more somnolent, suspect patient has again developed sepsis from his wound, will collect blood culture and wound culture start the patient, ceftriaxone, 2 g q.day, Flagyl 500 mg q.8 and vancomycin per pharmacy later in the evening patient was transferred to ICU as patient was hypotensive and started on levophed, ct scan abdomen is suspicious pyelonephritis, and now patient is being treated with Meropenem, flagyl and vancomcin, urine and blood culture no growth so far, on 03/21 patient was seen by surgery service had debridement of the wound, wound growing Enterococcus species, on 03/24 patient blood pressure was improving and Levophed was on hold however patient is requiring Levophed as his BP is still soft, however today patient is more alert and oriented, his duaghter is present and gave updates, seen by world travel counselor and will monitor patient will be seen weigher and charger and further recommendation to follow. 03/26/2023: 73-year-old male with a atrial fibrillation RVR seen by cardiology being treated with amiodarone drip and metoprolol was added however patient blood pressure was soft unable to tolerate metoprolol held the medication, patient was seen by Cardiology digoxin was added HR is trending down and blood pressure is improving, patient has significant sacral decubital ulcers and necrosis, was seen by surgery service, patient will need surgical debridement however patient is not a good candidate for the surgery, once cardiac issues have stabilized may consider surgical interventon, on 03/19 patient remained clinically stable however he had developed fever and more somnolent, suspect patient has again developed sepsis from his wound, will collect blood culture and wound culture start the patient, ceftriaxone, 2 g q.day, Flagyl 500 mg q.8 and vancomycin per pharmacy later in the evening patient was transferred to ICU as patient was hypotensive and started on levophed, ct scan abdomen is suspicious pyelonephritis, and now patient is being treated with Meropenem, flagyl and vancomcin, urine and blood culture no growth so far, on 03/21 patient was seen by surgery service had debridement of the wound, wound growing Enterococcus species, on 03/24 patient blood pressure was improving and Levophed was on hold however patient is requiring Levophed as his BP is still soft,more alert. cont
[2023-04-01] MEDS: INSULIN GLARGINE (*BKC) 100 UNITS/ML 15 UNITS SUB-Q (21:02)
[2023-04-01 21:42] LABS: Glucose Point of Care 153 mg/dl (65-105)
[2023-04-01] MEDS: oxyCODONE/ACETAMINOPHEN (*CRX) 5-325 MG TABLET 2 TABLET PO (21:47)
[2023-04-02] VITALS (16 sets, daily range): BP systolic 99–117; BP diastolic 40–65; PULSE 62–125; RESP 16–20; TEMP 36.1–36.7; O2SAT 95–99
[2023-04-02 01:16] LABS: Appearance Urine Turbid (Clear); Bacteria Urine None Seen /hpf; Bilirubin Urine Negative (Negative); Blood Urine 3+ (Negative); Color Urine Yellow (Yellow); Glucose Urine UA 3+ mg/dL (Negative); Ketones Urine Negative (Negative); Leukocyte Esterase Ur 3+ LEU/UL (NEGATIVE); Need Manual Microscopic Reviewed; Nitrate Urine Negative (Negative); Non Pathogenic Casts 0-2; Protein Urine 1+ mg/dL (Negative); RBC Urine 51-100 /hpf (0-2); Specific Grav Ur 1.018 (1.001-1.035); Squamous Epithelial Cell Urine Occasional /hpf (Few); Urobilinogen Urine 0.2 mg/dL (<2.0); WBC Urine >100 /hpf (0-3)
[2023-04-02 01:18] LABS: Add Urine Microscopic? YES
[2023-04-02] MEDS: CENTRAL LINE FLUSH 10 ML IV PUSH ×3 (05:15→21:34)
[2023-04-02] MEDS: AMOXICILLIN 500 MG CAPSULE 1000 MG PO ×3 (05:15→21:33)
[2023-04-02] MEDS: oxyCODONE/ACETAMINOPHEN (*CRX) 5-325 MG TABLET 1 TABLET PO (05:38)
[2023-04-02 05:42] LABS: Hematocrit 30.3 % (42.0-52.0); Hemoglobin 8.7 g/dL (14.0-18.0); Mean Corpuscular HGB Conc 28.7 g/dl (32-36); Mean Corpuscular Hemoglobin 25.1 pg (26-34); Mean Corpuscular Volume 87.3 fl (80-100); Mean Platelet Volume 10.5 fl (7.4-10.4); Platelet Count Result 186 k/mm3 (150-375); Red Blood Count 3.47 M/mm3 (4.6-6.20); White Blood Count 4.6 K/mm3 (4.5-10.0)
[2023-04-02 05:52] LABS: Alanine Aminotransferase 17 U/L (6-50); Albumin Level 2.2 g/dL (3.5-5.1); Alkaline Phosphatase 134 U/L (38-126); Anion Gap 0 mmol/L (8-16); Aspartate Amino Transferase 25 U/L (17-59); Bilirubin,Total 0.4 mg/dL (0.2-1.3); Blood Urea Nitrogen 30 mg/dL (9-20); Calcium 7.5 mg/dL (8.4-10.2); Carbon Dioxide 30 mmol/L (22-30); Chloride 106 mmol/L (98-107); Estimated CRCL calculation 105 ml/min; Estimated Glomerular Filt Rate > 60; Glucose 109 mg/dL (65-110); Magnesium 1.8 mg/dL (1.6-2.3); Potassium 3.7 mmol/L (3.4-5.0); Sodium 136 mmol/L (137-145)
[2023-04-02 08:08] LABS: Glucose Point of Care 96 mg/dl (65-105)
[2023-04-02] MEDS: metFORMIN HCL XR 500 MG TAB.SR.24H 2000 MG PO (09:03)
[2023-04-02] MEDS: FINASTERIDE 5 MG TABLET PO (09:03)
[2023-04-02] MEDS: DIGOXIN 250 MCG TABLET PO (09:03)
[2023-04-02] MEDS: ASPIRIN 81 MG CHEWABLE TABLET PO (09:03)
[2023-04-02] MEDS: PREGABALIN (*CRX) 75 MG CAPSULE PO (09:03)
[2023-04-02] MEDS: MIDODRINE HCL 10 MG TABLET PO ×3 (09:03→17:16)
[2023-04-02] MEDS: PRAVASTATIN SODIUM 20 MG TABLET 40 MG PO (09:03)
[2023-04-02] MEDS: ENOXAPARIN 40 MG/0.4 ML SYRINGE SUB-Q (09:03)
[2023-04-02] MEDS: PANTOPRAZOLE SODIUM IV 40 MG VIAL IV PUSH ×2 (09:03→21:32)
[2023-04-02] MEDS: EMPAGLIFLOZIN 25 MG TABLET PO (09:03)
[2023-04-02] MEDS: TAMSULOSIN HCL 0.4 MG CAPSULE PO (09:03)
[2023-04-02] MEDS: TOLNAFTATE 1% POWDER 45 GM BTL 1 APPLIC TOPICAL ×2 (09:04→21:33)
[2023-04-02] MEDS: AMIODARONE HCL 200 MG TABLET PO (09:04)
[2023-04-02] MEDS: MONTELUKAST SODIUM 10 MG TABLET PO (09:04)
[2023-04-02 12:08] LABS: Glucose Point of Care 121 mg/dl (65-105)
--- NOTE | 2023-04-02 12:24 | WPDPN ---
Progress Note: A&P Assessment and Plan (1) Septic shock: Code(s): A41.9 - Sepsis, unspecified organism; R65.21 - Severe sepsis with septic shock Status: Acute Assessment and Plan: Resolved (2) Acute pyelitis: Code(s): N10 - Acute pyelonephritis Status: Acute (3) Hydronephrosis: Code(s): N13.30 - Unspecified hydronephrosis Status: Acute (4) Acute renal insufficiency: Code(s): N28.9 - Disorder of kidney and ureter, unspecified Status: Acute (5) Anemia: Qualifiers: Anemia type: unspecified type Qualified Code(s): D64.9 - Anemia, unspecified Code(s): D64.9 - Anemia, unspecified Status: Acute (6) Atrial fibrillation with RVR: Code(s): I48.91 - Unspecified atrial fibrillation Status: Acute Assessment and Plan: On IV amiodarone. Continue anticoagulation. Transitioning to oral metoprolol. Appreciate cardiology input. 03/25/2023 interval history, 73-year-old male with a atrial fibrillation RVR seen by cardiology being treated with amiodarone drip and metoprolol was added however patient blood pressure was soft unable to tolerate metoprolol held the medication, patient was seen by Cardiology digoxin was added HR is trending down and blood pressure is improving, patient has significant sacral decubital ulcers and necrosis, was seen by surgery service, patient will need surgical debridement however patient is not a good candidate for the surgery, once cardiac issues have stabilized may consider surgical interventon, on 03/19 patient remained clinically stable however he had developed fever and more somnolent, suspect patient has again developed sepsis from his wound, will collect blood culture and wound culture start the patient, ceftriaxone, 2 g q.day, Flagyl 500 mg q.8 and vancomycin per pharmacy later in the evening patient was transferred to ICU as patient was hypotensive and started on levophed, ct scan abdomen is suspicious pyelonephritis, and now patient is being treated with Meropenem, flagyl and vancomcin, urine and blood culture no growth so far, on 03/21 patient was seen by surgery service had debridement of the wound, wound growing Enterococcus species, on 03/24 patient blood pressure was improving and Levophed was on hold however patient is requiring Levophed as his BP is still soft, however today patient is more alert and oriented, his duaghter is present and gave updates, seen by client solutions director and will monitor patient will be seen communications writer and further recommendation to follow. 03/26/2023: 73-year-old male with a atrial fibrillation RVR seen by cardiology being treated with amiodarone drip and metoprolol was added however patient blood pressure was soft unable to tolerate metoprolol held the medication, patient was seen by Cardiology digoxin was added HR is trending down and blood pressure is improving, patient has significant sacral decubital ulcers and necrosis, was seen by surgery service, patient will need surgical debridement however patient is not a good candidate for the surgery, once cardiac issues have stabilized may consider surgical interventon, on 03/19 patient remained clinically stable however he had developed fever and more somnolent, suspect patient has again developed sepsis from his wound, will collect blood culture and wound culture start the patient, ceftriaxone, 2 g q.day, Flagyl 500 mg q.8 and vancomycin per pharmacy later in the evening patient was transferred to ICU as patient was hypotensive and started on levophed, ct scan abdomen is suspicious pyelonephritis, and now patient is being treated with Meropenem, flagyl and vancomcin, urine and blood culture no growth so far, on 03/21 patient was seen by surgery service had debridement of the wound, wound growing Enterococcus species, on 03/24 patient blood pressure was improving and Levophed was on hold however patient is requiring Levophed as his BP is still soft,more alert. cont
[2023-04-02] MEDS: oxyCODONE/ACETAMINOPHEN (*CRX) 5-325 MG TABLET 2 TABLET PO ×2 (12:27→21:33)
--- NOTE | 2023-04-02 15:52 | PC.NURSE ---
This patient, John Warren, was transferred to [facility] on 04/02/23 at 1552. Personal belongings sent with patient. Report given to Anne-Marie PONCE. Appropriate documentation sent with patient.
[2023-04-02 17:08] LABS: Glucose Point of Care 135 mg/dl (65-105)
[2023-04-02 20:11] LABS: Glucose Point of Care 156 mg/dl (65-105)
[2023-04-02] MEDS: INSULIN GLARGINE (*BKC) 100 UNITS/ML 15 UNITS SUB-Q (21:27)
[2023-04-03] VITALS (11 sets, daily range): BP systolic 101–130; BP diastolic 52–69; PULSE 55–124; RESP 17–18; TEMP 36.4–37.1; O2SAT 96–98
[2023-04-03] MEDS: AMOXICILLIN 500 MG CAPSULE 1000 MG PO ×3 (05:38→21:00)
[2023-04-03] MEDS: CENTRAL LINE FLUSH 10 ML IV PUSH ×3 (05:38→21:00)
[2023-04-03] MEDS: oxyCODONE/ACETAMINOPHEN (*CRX) 5-325 MG TABLET 2 TABLET PO ×2 (05:52→17:20)
[2023-04-03] MEDS: ASPIRIN 81 MG CHEWABLE TABLET PO (08:38)
[2023-04-03] MEDS: AMIODARONE HCL 200 MG TABLET PO (08:38)
[2023-04-03] MEDS: MIDODRINE HCL 10 MG TABLET PO ×3 (08:39→17:21)
[2023-04-03] MEDS: ENOXAPARIN 40 MG/0.4 ML SYRINGE SUB-Q (08:39)
[2023-04-03] MEDS: DIGOXIN 250 MCG TABLET PO (08:39)
[2023-04-03] MEDS: FINASTERIDE 5 MG TABLET PO (08:39)
[2023-04-03] MEDS: MONTELUKAST SODIUM 10 MG TABLET PO (08:40)
[2023-04-03] MEDS: PREGABALIN (*CRX) 75 MG CAPSULE PO (08:40)
[2023-04-03] MEDS: PANTOPRAZOLE SODIUM IV 40 MG VIAL IV PUSH ×2 (08:40→21:00)
[2023-04-03] MEDS: PRAVASTATIN SODIUM 20 MG TABLET 40 MG PO (08:40)
[2023-04-03] MEDS: TAMSULOSIN HCL 0.4 MG CAPSULE PO (08:40)
[2023-04-03] MEDS: EMPAGLIFLOZIN 25 MG TABLET PO (08:43)
[2023-04-03] MEDS: metFORMIN HCL XR 500 MG TAB.SR.24H 2000 MG PO (08:43)
[2023-04-03 08:56] LABS: Glucose Point of Care 93 mg/dl (65-105)
[2023-04-03 12:15] LABS: Glucose Point of Care 112 mg/dl (65-105)
--- NOTE | 2023-04-03 13:02 | WPDPN ---
Progress Note: A&P Assessment and Plan (1) Septic shock: Code(s): A41.9 - Sepsis, unspecified organism; R65.21 - Severe sepsis with septic shock Status: Acute Assessment and Plan: Resolved (2) Acute pyelitis: Code(s): N10 - Acute pyelonephritis Status: Acute (3) Hydronephrosis: Code(s): N13.30 - Unspecified hydronephrosis Status: Acute (4) Acute renal insufficiency: Code(s): N28.9 - Disorder of kidney and ureter, unspecified Status: Acute (5) Anemia: Qualifiers: Anemia type: unspecified type Qualified Code(s): D64.9 - Anemia, unspecified Code(s): D64.9 - Anemia, unspecified Status: Acute (6) Atrial fibrillation with RVR: Code(s): I48.91 - Unspecified atrial fibrillation Status: Acute Assessment and Plan: On IV amiodarone. Continue anticoagulation. Transitioning to oral metoprolol. Appreciate cardiology input. 03/25/2023 interval history, 73-year-old male with a atrial fibrillation RVR seen by cardiology being treated with amiodarone drip and metoprolol was added however patient blood pressure was soft unable to tolerate metoprolol held the medication, patient was seen by Cardiology digoxin was added HR is trending down and blood pressure is improving, patient has significant sacral decubital ulcers and necrosis, was seen by surgery service, patient will need surgical debridement however patient is not a good candidate for the surgery, once cardiac issues have stabilized may consider surgical interventon, on 03/19 patient remained clinically stable however he had developed fever and more somnolent, suspect patient has again developed sepsis from his wound, will collect blood culture and wound culture start the patient, ceftriaxone, 2 g q.day, Flagyl 500 mg q.8 and vancomycin per pharmacy later in the evening patient was transferred to ICU as patient was hypotensive and started on levophed, ct scan abdomen is suspicious pyelonephritis, and now patient is being treated with Meropenem, flagyl and vancomcin, urine and blood culture no growth so far, on 03/21 patient was seen by surgery service had debridement of the wound, wound growing Enterococcus species, on 03/24 patient blood pressure was improving and Levophed was on hold however patient is requiring Levophed as his BP is still soft, however today patient is more alert and oriented, his duaghter is present and gave updates, seen by ceo and will monitor patient will be seen induction machine setter and further recommendation to follow. 03/26/2023: 73-year-old male with a atrial fibrillation RVR seen by cardiology being treated with amiodarone drip and metoprolol was added however patient blood pressure was soft unable to tolerate metoprolol held the medication, patient was seen by Cardiology digoxin was added HR is trending down and blood pressure is improving, patient has significant sacral decubital ulcers and necrosis, was seen by surgery service, patient will need surgical debridement however patient is not a good candidate for the surgery, once cardiac issues have stabilized may consider surgical interventon, on 03/19 patient remained clinically stable however he had developed fever and more somnolent, suspect patient has again developed sepsis from his wound, will collect blood culture and wound culture start the patient, ceftriaxone, 2 g q.day, Flagyl 500 mg q.8 and vancomycin per pharmacy later in the evening patient was transferred to ICU as patient was hypotensive and started on levophed, ct scan abdomen is suspicious pyelonephritis, and now patient is being treated with Meropenem, flagyl and vancomcin, urine and blood culture no growth so far, on 03/21 patient was seen by surgery service had debridement of the wound, wound growing Enterococcus species, on 03/24 patient blood pressure was improving and Levophed was on hold however patient is requiring Levophed as his BP is still soft,more alert. cont
--- NOTE | 2023-04-03 15:22 | PM.PNCARD ---
Progress Note: A&P Assessment and Plan (1) Atrial fibrillation with rapid ventricular response: Code(s): I48.91 - Unspecified atrial fibrillation Status: Acute Assessment and Plan: Paroxysmal atrial fibrillation, recurrent atrial fibrillation with RVR adn atrial flutter. during this hospitalization. Pursuing rate control strategy; heart rate has been much better controlled the last few days.. Continue amiodarone p.o. 200mg daily Continue Digoxin, check a level tmr Blood pressure still soft at times, but improving. Add beta-aelc, metoprolol 12.5 BID, titrate Anticoagulation on hold due to recent surgery on 03/21. Looks like no further invasive procedures planned. Will resume and DC ASA. Pt in agreement. (2) Chronic anticoagulation: Code(s): Z79.01 - USP (current) use of anticoagulants Status: Acute Assessment and Plan: Anticoagulation on hold due to recent surgery on 03/21. Will resume Eliquis. (3) Septic shock: Code(s): A41.9 - Sepsis, unspecified organism; R65.21 - Severe sepsis with septic shock Status: Acute Assessment and Plan: Improving, off pressors. Subjective Date/time seen: 04/03/23 15:22 Interval history: Reason for visit: Atrial fibrillation with RVR 73 year old male with coronary artery disease and paroxysmal atrial fibrillation.? Patient was hospitalized here for a number of days now with problems with sepsis, UTI, sacral decubitus.? Asked to sign back on the patient's case because of AF with RVR.? He is completely asymptomatic of this arrhythmia.? Started on intravenous amiodarone per the hospitalist service Date of service 03/14/2023: No complaints this morning.? He remains in atrial fibrillation with rate typically between 100-120bpm.? He is asymptomatic.? Remains on amiodarone drip. Date of service 03/15/2023: Heart rate remains not well controlled.? However, he is still asymptomatic.? He does not have any chest pain, shortness of breath, or palpitations.? Date of service 03/16: Still with intermittent RVR. Patient was hyoptensive this morning, Metoprolol could not be given due to SBP in the 70s. Date of service 03/17: Yesterday afternoon, Amiodarone drip was weaned off, however later he went back into RVR and was given a dose of Digoxin IV overnight and then later on an Amiodarone bolus. HR in the 130s this morning but patient remains asymptomatic from it and is comfortably sleeping. Date of service 03/19/2023: Heart rate is still elevated despite high-dose metoprolol, amiodarone and digoxin. He denies any chest pain or shortness of breath Date of service 03/20/2023: Transfer to the ICU yesterday because of altered mental status and lethargy. He denies any chest pain or shortness of breath. Heart rate is still elevated but a bit better controlled. Date of service 03/22/2023: Patient states he is feeling well. In atrial fibrillation, HR in the 110s-120s. Asymptomatic from it. Remains on Amiodarone drip and Levophed drip. Date of service 03/23: Remains in atrial fibrillation but rates are better. Still on Levophed. Patient resting comfortably. Date of service 03/24: Heart rate in the 110s during my evaluation this morning. Per General Surgery, may need to take patient back to the operating room in the next couple of days for debridement of the remaining portion of the nonviable sacral tissue. Date of service 03/29/2023: Rate is better controlled today, in the 70's. Off pressors at this point and BP stable. Resting comfortably in bed at the time of my visit. Amiodarone changed to p.o.. Date of service 03/30/2023: Patient feels exceptionally well this morning. Telemetry shows a flutter rate 70s to 116. Digoxin level is 1.0. Date of service 04/03/2023: Pt feels good, sat on edge of bed today, No SOB Tele shows HR up in the 120's a lot today. Review of Systems Review of Systems: No SOB CP, dizziness, abd pain, bleeding Exam
--- NOTE | 2023-04-03 15:22 | PCPTNOTE ---
Attempted to see patient for Physical Therapy this date. Patient refused and stated that he was too tired and his bottom hurt. Will plan to continue treatment per plan of care. RN notified.
[2023-04-03] MEDS: TOLNAFTATE 1% POWDER 45 GM BTL 1 APPLIC TOPICAL ×2 (16:30→21:00)
[2023-04-03 17:31] LABS: Glucose Point of Care 122 mg/dl (65-105)
[2023-04-03 20:08] LABS: Glucose Point of Care 127 mg/dl (65-105)
[2023-04-03] MEDS: INSULIN GLARGINE (*BKC) 100 UNITS/ML 15 UNITS SUB-Q (20:56)
[2023-04-03] MEDS: METOPROLOL TARTRATE 12.5 MG TABLET PO (20:59)
[2023-04-04] VITALS (10 sets, daily range): BP systolic 100–129; BP diastolic 47–74; PULSE 40–115; RESP 15–18; TEMP 35.8–37.9; O2SAT 96–99
[2023-04-04] MEDS: AMOXICILLIN 500 MG CAPSULE 1000 MG PO ×3 (05:50→21:12)
[2023-04-04] MEDS: CENTRAL LINE FLUSH 10 ML IV PUSH ×3 (05:50→21:18)
[2023-04-04 06:24] LABS: Digoxin 1.2 ng/mL (0.8-2.0)
[2023-04-04 07:55] LABS: Glucose Point of Care 67 mg/dl (65-105)
[2023-04-04] MEDS: MONTELUKAST SODIUM 10 MG TABLET PO (08:41)
[2023-04-04] MEDS: TAMSULOSIN HCL 0.4 MG CAPSULE PO (08:42)
[2023-04-04] MEDS: MIDODRINE HCL 10 MG TABLET PO ×3 (08:42→18:29)
[2023-04-04] MEDS: AMIODARONE HCL 200 MG TABLET PO (08:42)
[2023-04-04] MEDS: PRAVASTATIN SODIUM 20 MG TABLET 40 MG PO (08:43)
[2023-04-04] MEDS: DIGOXIN 250 MCG TABLET PO (08:43)
[2023-04-04] MEDS: FINASTERIDE 5 MG TABLET PO (08:43)
[2023-04-04] MEDS: PREGABALIN (*CRX) 75 MG CAPSULE PO (08:44)
[2023-04-04] MEDS: TOLNAFTATE 1% POWDER 45 GM BTL 1 APPLIC TOPICAL ×2 (08:44→21:12)
[2023-04-04] MEDS: METOPROLOL TARTRATE 12.5 MG TABLET PO ×2 (08:44→21:12)
[2023-04-04] MEDS: ENOXAPARIN 40 MG/0.4 ML SYRINGE SUB-Q (08:45)
[2023-04-04] MEDS: PANTOPRAZOLE SODIUM IV 40 MG VIAL IV PUSH ×2 (08:45→21:13)
--- NOTE | 2023-04-04 09:10 | PM.PNCARD ---
Progress Note: A&P Assessment and Plan (1) Atrial fibrillation with rapid ventricular response: Code(s): I48.91 - Unspecified atrial fibrillation Status: Acute Assessment and Plan: Paroxysmal atrial fibrillation, recurrent atrial fibrillation with RVR adn atrial flutter. during this hospitalization. Pursuing rate control strategy; heart rate has been much better controlled the last few days.. Continue amiodarone p.o. 200mg daily Continue Digoxin, check a level tmr Blood pressure still soft at times, but improving. Add beta-alec, metoprolol 12.5 BID, titrate Anticoagulation on hold due to recent surgery on 03/21. Looks like no further invasive procedures planned. Will resume and DC ASA. Pt in agreement. (2) Chronic anticoagulation: Code(s): Z79.01 - shelter (current) use of anticoagulants Status: Acute Assessment and Plan: Anticoagulation on hold due to recent surgery on 03/21. Will resume Eliquis. (3) Septic shock: Code(s): A41.9 - Sepsis, unspecified organism; R65.21 - Severe sepsis with septic shock Status: Acute Assessment and Plan: Improving, off pressors. Subjective Date/time seen: 04/04/23 09:10 Interval history: Reason for visit: Atrial fibrillation with RVR 73 year old male with coronary artery disease and paroxysmal atrial fibrillation.? Patient was hospitalized here for a number of days now with problems with sepsis, UTI, sacral decubitus.? Asked to sign back on the patient's case because of AF with RVR.? He is completely asymptomatic of this arrhythmia.? Started on intravenous amiodarone per the hospitalist service Date of service 03/14/2023: No complaints this morning.? He remains in atrial fibrillation with rate typically between 100-120bpm.? He is asymptomatic.? Remains on amiodarone drip. Date of service 03/15/2023: Heart rate remains not well controlled.? However, he is still asymptomatic.? He does not have any chest pain, shortness of breath, or palpitations.? Date of service 03/16: Still with intermittent RVR. Patient was hyoptensive this morning, Metoprolol could not be given due to SBP in the 70s. Date of service 03/17: Yesterday afternoon, Amiodarone drip was weaned off, however later he went back into RVR and was given a dose of Digoxin IV overnight and then later on an Amiodarone bolus. HR in the 130s this morning but patient remains asymptomatic from it and is comfortably sleeping. Date of service 03/19/2023: Heart rate is still elevated despite high-dose metoprolol, amiodarone and digoxin. He denies any chest pain or shortness of breath Date of service 03/20/2023: Transfer to the ICU yesterday because of altered mental status and lethargy. He denies any chest pain or shortness of breath. Heart rate is still elevated but a bit better controlled. Date of service 03/22/2023: Patient states he is feeling well. In atrial fibrillation, HR in the 110s-120s. Asymptomatic from it. Remains on Amiodarone drip and Levophed drip. Date of service 03/23: Remains in atrial fibrillation but rates are better. Still on Levophed. Patient resting comfortably. Date of service 03/24: Heart rate in the 110s during my evaluation this morning. Per General Surgery, may need to take patient back to the operating room in the next couple of days for debridement of the remaining portion of the nonviable sacral tissue. Date of service 03/29/2023: Rate is better controlled today, in the 70's. Off pressors at this point and BP stable. Resting comfortably in bed at the time of my visit. Amiodarone changed to p.o.. Date of service 03/30/2023: Patient feels exceptionally well this morning. Telemetry shows a flutter rate 70s to 116. Digoxin level is 1.0. Date of service 04/03/2023: Pt feels good, sat on edge of bed today, No SOB Tele shows HR up in the 120's a lot today. Date of service 04/04/2023: Review of Systems Review of Systems: No SOB CP, dizziness, a
[2023-04-04 11:57] LABS: Glucose Point of Care 123 mg/dl (65-105)
--- NOTE | 2023-04-04 13:50 | P.DS_ITS ---
DS: Summary Time Spent with Patient Time attestation: Total time spent providing and/or coordinating discharge services: DS: Data Data Completed and Pending Labs on day of discharge: Labs from last 24 hours 04/04/23 04/04/23 04/04/23 11:47 07:52 05:52 POC Capillary Glucose 123 H 67 Digoxin 1.2 04/03/23 04/03/23 19:56 17:19 POC Capillary Glucose 127 H 122 H Digoxin Discharge Plan Discharge Consulting providers: Lorna Garcia; Andrey Colmenares; Jayde Cannon; Laura Padilla; Rian Mendoza; Inessa Gonzalez; Fany Mondragon Discharge Instructions: Care Coordination: Patient to have [facility] resume services at discharge for PT/OT/RN. They can be reached at [phone] if you have any questions. RN Please fax discharge instructions to [phone]. Wound Vac Instructions: Wound vac dressing to sacral wound. Settings: -125mmHg low continuous pressure, black foam only, making sure to track tosin-pad track back to fleshy part of the hip. Dressing to be changed 3 times a week Patient Instructions: Apixaban (By mouth), A-fib (Atrial Fibrillation) (GEN), Acute Kidney Injury (GEN), Urinary Tract Infection in Men (GEN), How to Prevent Pressure Injuries (GEN), Sepsis (GEN), Hypercoagulation (GEN), Chronic Wounds (GEN) Discharge Medications: No Action pravastatin 40 mg tablet 40 mg PO DAILY Janumet XR 50-1,000 mg tablet, ER multiphase 24 hr 2 tablet PO DAILY montelukast 10 mg tablet 10 mg PO DAILY tamsulosin 0.4 mg Capsule 0.4 mg PO QAM Qty: 30 0RF metoprolol tartrate 100 mg tablet 100 mg PO BID omeprazole 20 mg capsule,delayed release(DR/EC) 20 mg PO DAILY mupirocin 2 % ointment 1 applic TOPICAL DAILY Rx Instructions: to back wound Santyl 250 unit/gram ointment 1 applic TOPICAL DAILY Rx Instructions: to back wound with dressing change oxybutynin chloride 5 mg tablet 5 mg PO BID Jardiance 25 mg tablet 25 mg PO DAILY ergocalciferol (vitamin D2) 1,250 mcg (50,000 unit) capsule 1,250 mcg PO WEEKLY Rx Instructions: valsartan-hydrochlorothiazide 320-25 mg tablet 0.5 tablet PO DAILY icosapent ethyl [Vascepa] 1 gram capsule 4 g PO DAILY oxycodone-acetaminophen 5-325 mg Tablet 1 tablet PO Q6H PRN (Reason: Pain Rated 7-10) Qty: 28 0RF pregabalin [Lyrica] 75 mg Capsule 150 mg PO DAILY Qty: 30 0RF acetaminophen [Mapap (acetaminophen)] 325 mg Tablet 650 mg PO Q6H PRN (Reason: Mild Pain (1-3) Or Fever) Qty: 30 0RF aspirin [Children's Aspirin] 81 mg Tablet,Chewable 81 mg PO DAILY@0800 Qty: 30 0RF Eliquis 5 mg Tablet 5 mg PO BID Qty: 60 0RF Date of admission: 03/08/23 21:57 Primary Care Provider: Jaron,Mario French Admitting Provider: Sima Estes V. Attending physician on admission: Dagoberto Hoffman Condition: Critical
[2023-04-04] MEDS: oxyCODONE/ACETAMINOPHEN (*CRX) 5-325 MG TABLET 2 TABLET PO (14:19)
[2023-04-04 17:23] LABS: Glucose Point of Care 138 mg/dl (65-105)
[2023-04-04] MEDS: INSULIN GLARGINE (*BKC) 100 UNITS/ML 15 UNITS SUB-Q (21:09)
[2023-04-04 21:33] LABS: Glucose Point of Care 153 mg/dl (65-105)
[2023-04-05] VITALS (11 sets, daily range): BP systolic 106–134; BP diastolic 44–56; PULSE 50–123; RESP 18–20; TEMP 36.1–37; O2SAT 94–98
[2023-04-05] MEDS: CENTRAL LINE FLUSH 10 ML IV PUSH ×3 (05:34→21:04)
[2023-04-05] MEDS: AMOXICILLIN 500 MG CAPSULE 1000 MG PO ×3 (05:34→21:02)
[2023-04-05 08:18] LABS: Glucose Point of Care 113 mg/dl (65-105)
[2023-04-05] MEDS: DIGOXIN 250 MCG TABLET PO (09:12)
[2023-04-05] MEDS: metFORMIN HCL XR 500 MG TAB.SR.24H 2000 MG PO (09:12)
[2023-04-05] MEDS: ENOXAPARIN 40 MG/0.4 ML SYRINGE SUB-Q (09:13)
[2023-04-05] MEDS: FINASTERIDE 5 MG TABLET PO (09:13)
[2023-04-05] MEDS: EMPAGLIFLOZIN 25 MG TABLET PO (09:13)
[2023-04-05] MEDS: METOPROLOL TARTRATE 12.5 MG TABLET PO (09:13)
[2023-04-05] MEDS: AMIODARONE HCL 200 MG TABLET PO (09:13)
[2023-04-05] MEDS: PRAVASTATIN SODIUM 20 MG TABLET 40 MG PO (09:14)
[2023-04-05] MEDS: TAMSULOSIN HCL 0.4 MG CAPSULE PO (09:14)
[2023-04-05] MEDS: MONTELUKAST SODIUM 10 MG TABLET PO (09:14)
[2023-04-05] MEDS: PREGABALIN (*CRX) 75 MG CAPSULE PO (09:14)
[2023-04-05] MEDS: MIDODRINE HCL 10 MG TABLET PO ×3 (09:14→17:23)
[2023-04-05] MEDS: PANTOPRAZOLE SODIUM IV 40 MG VIAL IV PUSH ×2 (09:15→21:02)
[2023-04-05] MEDS: TOLNAFTATE 1% POWDER 45 GM BTL 1 APPLIC TOPICAL ×2 (09:15→21:04)
[2023-04-05] MEDS: oxyCODONE/ACETAMINOPHEN (*CRX) 5-325 MG TABLET 2 TABLET PO (11:48)
[2023-04-05 12:01] LABS: Glucose Point of Care 178 mg/dl (65-105)
[2023-04-05 12:46] LABS: Hematocrit 33.3 % (42.0-52.0); Hemoglobin 9.7 g/dL (14.0-18.0); Mean Corpuscular HGB Conc 29.1 g/dl (32-36); Mean Corpuscular Hemoglobin 25.6 pg (26-34); Mean Corpuscular Volume 87.9 fl (80-100); Mean Platelet Volume 9.6 fl (7.4-10.4); Platelet Count Result 177 k/mm3 (150-375); Red Blood Count 3.79 M/mm3 (4.6-6.20); Red Cell Distribution Width 19.7 % (11.5-14.5); White Blood Count 5.5 K/mm3 (4.5-10.0)
[2023-04-05 12:55] LABS: Anion Gap 1 mmol/L (8-16); Blood Urea Nitrogen 28 mg/dL (9-20); Calcium 7.4 mg/dL (8.4-10.2); Carbon Dioxide 29 mmol/L (22-30); Chloride 106 mmol/L (98-107); Estimated CRCL calculation 98 ml/min; Estimated Glomerular Filt Rate > 60; Glucose 180 mg/dL (65-110); Potassium 4.5 mmol/L (3.4-5.0); Sodium 136 mmol/L (137-145)
--- NOTE | 2023-04-05 12:58 | WPDPN ---
Progress Note: A&P Assessment and Plan (1) Septic shock: Code(s): A41.9 - Sepsis, unspecified organism; R65.21 - Severe sepsis with septic shock Status: Acute Assessment and Plan: Resolved (2) Acute pyelitis: Code(s): N10 - Acute pyelonephritis Status: Acute (3) Hydronephrosis: Code(s): N13.30 - Unspecified hydronephrosis Status: Acute (4) Acute renal insufficiency: Code(s): N28.9 - Disorder of kidney and ureter, unspecified Status: Acute (5) Anemia: Qualifiers: Anemia type: unspecified type Qualified Code(s): D64.9 - Anemia, unspecified Code(s): D64.9 - Anemia, unspecified Status: Acute (6) Atrial fibrillation with RVR: Code(s): I48.91 - Unspecified atrial fibrillation Status: Acute Assessment and Plan: On IV amiodarone. Continue anticoagulation. Transitioning to oral metoprolol. Appreciate cardiology input. 03/25/2023 interval history, 73-year-old male with a atrial fibrillation RVR seen by cardiology being treated with amiodarone drip and metoprolol was added however patient blood pressure was soft unable to tolerate metoprolol held the medication, patient was seen by Cardiology digoxin was added HR is trending down and blood pressure is improving, patient has significant sacral decubital ulcers and necrosis, was seen by surgery service, patient will need surgical debridement however patient is not a good candidate for the surgery, once cardiac issues have stabilized may consider surgical interventon, on 03/19 patient remained clinically stable however he had developed fever and more somnolent, suspect patient has again developed sepsis from his wound, will collect blood culture and wound culture start the patient, ceftriaxone, 2 g q.day, Flagyl 500 mg q.8 and vancomycin per pharmacy later in the evening patient was transferred to ICU as patient was hypotensive and started on levophed, ct scan abdomen is suspicious pyelonephritis, and now patient is being treated with Meropenem, flagyl and vancomcin, urine and blood culture no growth so far, on 03/21 patient was seen by surgery service had debridement of the wound, wound growing Enterococcus species, on 03/24 patient blood pressure was improving and Levophed was on hold however patient is requiring Levophed as his BP is still soft, however today patient is more alert and oriented, his duaghter is present and gave updates, seen by shingle shearing machine operator and will monitor patient will be seen touch up painter and further recommendation to follow. 03/26/2023: 73-year-old male with a atrial fibrillation RVR seen by cardiology being treated with amiodarone drip and metoprolol was added however patient blood pressure was soft unable to tolerate metoprolol held the medication, patient was seen by Cardiology digoxin was added HR is trending down and blood pressure is improving, patient has significant sacral decubital ulcers and necrosis, was seen by surgery service, patient will need surgical debridement however patient is not a good candidate for the surgery, once cardiac issues have stabilized may consider surgical interventon, on 03/19 patient remained clinically stable however he had developed fever and more somnolent, suspect patient has again developed sepsis from his wound, will collect blood culture and wound culture start the patient, ceftriaxone, 2 g q.day, Flagyl 500 mg q.8 and vancomycin per pharmacy later in the evening patient was transferred to ICU as patient was hypotensive and started on levophed, ct scan abdomen is suspicious pyelonephritis, and now patient is being treated with Meropenem, flagyl and vancomcin, urine and blood culture no growth so far, on 03/21 patient was seen by surgery service had debridement of the wound, wound growing Enterococcus species, on 03/24 patient blood pressure was improving and Levophed was on hold however patient is requiring Levophed as his BP is still soft,more alert. cont
--- NOTE | 2023-04-05 13:27 | PM.DS ---
DS: Admitting Diagnosis Discharge Date 04/05/2023 Admitting Diagnosis AMS DS: Discharge Diagnosis Discharge Diagnosis (1) Septic shock: Code(s): A41.9 - Sepsis, unspecified organism; R65.21 - Severe sepsis with septic shock Status: Acute Assessment and Plan: Resolved (2) Acute pyelitis: Code(s): N10 - Acute pyelonephritis Status: Acute (3) Hydronephrosis: Code(s): N13.30 - Unspecified hydronephrosis Status: Acute (4) Acute renal insufficiency: Code(s): N28.9 - Disorder of kidney and ureter, unspecified Status: Acute (5) Anemia: Qualifiers: Anemia type: unspecified type Qualified Code(s): D64.9 - Anemia, unspecified Code(s): D64.9 - Anemia, unspecified Status: Acute (6) Atrial fibrillation with RVR: Code(s): I48.91 - Unspecified atrial fibrillation Status: Acute Assessment and Plan: On IV amiodarone. Continue anticoagulation. Transitioning to oral metoprolol. Appreciate cardiology input. 03/25/2023 interval history, 73-year-old male with a atrial fibrillation RVR seen by cardiology being treated with amiodarone drip and metoprolol was added however patient blood pressure was soft unable to tolerate metoprolol held the medication, patient was seen by Cardiology digoxin was added HR is trending down and blood pressure is improving, patient has significant sacral decubital ulcers and necrosis, was seen by surgery service, patient will need surgical debridement however patient is not a good candidate for the surgery, once cardiac issues have stabilized may consider surgical interventon, on 03/19 patient remained clinically stable however he had developed fever and more somnolent, suspect patient has again developed sepsis from his wound, will collect blood culture and wound culture start the patient, ceftriaxone, 2 g q.day, Flagyl 500 mg q.8 and vancomycin per pharmacy later in the evening patient was transferred to ICU as patient was hypotensive and started on levophed, ct scan abdomen is suspicious pyelonephritis, and now patient is being treated with Meropenem, flagyl and vancomcin, urine and blood culture no growth so far, on 03/21 patient was seen by surgery service had debridement of the wound, wound growing Enterococcus species, on 03/24 patient blood pressure was improving and Levophed was on hold however patient is requiring Levophed as his BP is still soft, however today patient is more alert and oriented, his duaghter is present and gave updates, seen by division service manager and will monitor patient will be seen distillery supervisor and further recommendation to follow. 03/26/2023: 73-year-old male with a atrial fibrillation RVR seen by cardiology being treated with amiodarone drip and metoprolol was added however patient blood pressure was soft unable to tolerate metoprolol held the medication, patient was seen by Cardiology digoxin was added HR is trending down and blood pressure is improving, patient has significant sacral decubital ulcers and necrosis, was seen by surgery service, patient will need surgical debridement however patient is not a good candidate for the surgery, once cardiac issues have stabilized may consider surgical interventon, on 03/19 patient remained clinically stable however he had developed fever and more somnolent, suspect patient has again developed sepsis from his wound, will collect blood culture and wound culture start the patient, ceftriaxone, 2 g q.day, Flagyl 500 mg q.8 and vancomycin per pharmacy later in the evening patient was transferred to ICU as patient was hypotensive and started on levophed, ct scan abdomen is suspicious pyelonephritis, and now patient is being treated with Meropenem, flagyl and vancomcin, urine and blood culture no growth so far, on 03/21 patient was seen by surgery service had debridement of the wound, wound growing Enterococcus species, on 03/24 patient blood pressure was improving and Levophed was
--- NOTE | 2023-04-05 15:14 | PM.PNCARD ---
Progress Note: A&P Assessment and Plan (1) Atrial fibrillation with rapid ventricular response: Code(s): I48.91 - Unspecified atrial fibrillation Status: Acute Assessment and Plan: Paroxysmal atrial fibrillation, recurrent atrial fibrillation with RVR adn atrial flutter. during this hospitalization. Pursuing rate control strategy; heart rate has been much better controlled the last few days.. Continue amiodarone p.o. 200mg daily Want to avoid prop worker therapy with amiodarone and digoxin, so will discontinue dig and increase metoprolol since BP has improved at this point. Increase metoprolol to 25mg b.i.d. Titrate as needed. Anticoagulation on hold due to recent surgery on 03/21. Looks like no further invasive procedures planned. Will resume and DC ASA. Pt in agreement. 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 Will resume Eliquis. (3) Septic shock: Code(s): A41.9 - Sepsis, unspecified organism; R65.21 - Severe sepsis with septic shock Status: Acute Assessment and Plan: Improving, off pressors. Subjective Date/time seen: 04/05/23 15:14 Interval history: Reason for visit: Atrial fibrillation with RVR 73 year old male with coronary artery disease and paroxysmal atrial fibrillation.? Patient was hospitalized here for a number of days now with problems with sepsis, UTI, sacral decubitus.? Asked to sign back on the patient's case because of AF with RVR.? He is completely asymptomatic of this arrhythmia.? Started on intravenous amiodarone per the hospitalist service Date of service 03/14/2023: No complaints this morning.? He remains in atrial fibrillation with rate typically between 100-120bpm.? He is asymptomatic.? Remains on amiodarone drip. Date of service 03/15/2023: Heart rate remains not well controlled.? However, he is still asymptomatic.? He does not have any chest pain, shortness of breath, or palpitations.? Date of service 03/16: Still with intermittent RVR. Patient was hyoptensive this morning, Metoprolol could not be given due to SBP in the 70s. Date of service 03/17: Yesterday afternoon, Amiodarone drip was weaned off, however later he went back into RVR and was given a dose of Digoxin IV overnight and then later on an Amiodarone bolus. HR in the 130s this morning but patient remains asymptomatic from it and is comfortably sleeping. Date of service 03/19/2023: Heart rate is still elevated despite high-dose metoprolol, amiodarone and digoxin. He denies any chest pain or shortness of breath Date of service 03/20/2023: Transfer to the ICU yesterday because of altered mental status and lethargy. He denies any chest pain or shortness of breath. Heart rate is still elevated but a bit better controlled. Date of service 03/22/2023: Patient states he is feeling well. In atrial fibrillation, HR in the 110s-120s. Asymptomatic from it. Remains on Amiodarone drip and Levophed drip. Date of service 03/23: Remains in atrial fibrillation but rates are better. Still on Levophed. Patient resting comfortably. Date of service 03/24: Heart rate in the 110s during my evaluation this morning. Per General Surgery, may need to take patient back to the operating room in the next couple of days for debridement of the remaining portion of the nonviable sacral tissue. Date of service 03/29/2023: Rate is better controlled today, in the 70's. Off pressors at this point and BP stable. Resting comfortably in bed at the time of my visit. Amiodarone changed to p.o.. Date of service 03/30/2023: Patient feels exceptionally well this morning. Telemetry shows a flutter rate 70s to 116. Digoxin level is 1.0. Date of service 04/03/2023: Pt feels good, sat on edge of bed today, No SOB Tele shows HR up in the 120's a lot today. Date of service 04/05/2023: Fe
[2023-04-05 17:04] LABS: Glucose Point of Care 133 mg/dl (65-105)
[2023-04-05] MEDS: INSULIN GLARGINE (*BKC) 100 UNITS/ML 15 UNITS SUB-Q (21:00)
[2023-04-05] MEDS: METOPROLOL TARTRATE 25 MG TABLET PO (21:02)
[2023-04-05 21:32] LABS: Glucose Point of Care 169 mg/dl (65-105)
[2023-04-06] VITALS (10 sets, daily range): BP systolic 107–119; BP diastolic 47–72; PULSE 41–124; RESP 18–21; TEMP 36.7–37.1; O2SAT 97–100
[2023-04-06] MEDS: CENTRAL LINE FLUSH 10 ML IV PUSH (05:27)
[2023-04-06] MEDS: AMOXICILLIN 500 MG CAPSULE 1000 MG PO (05:27)
[2023-04-06 08:32] LABS: Glucose Point of Care 94 mg/dl (65-105)
[2023-04-06] MEDS: TAMSULOSIN HCL 0.4 MG CAPSULE PO (09:11)
[2023-04-06] MEDS: PREGABALIN (*CRX) 75 MG CAPSULE PO (09:11)
[2023-04-06] MEDS: FINASTERIDE 5 MG TABLET PO (09:11)
[2023-04-06] MEDS: PRAVASTATIN SODIUM 20 MG TABLET 40 MG PO (09:11)
[2023-04-06] MEDS: EMPAGLIFLOZIN 25 MG TABLET PO (09:11)
[2023-04-06] MEDS: METOPROLOL TARTRATE 25 MG TABLET PO ×2 (09:11→12:11)
[2023-04-06] MEDS: PANTOPRAZOLE SODIUM IV 40 MG VIAL IV PUSH (09:12)
[2023-04-06] MEDS: AMIODARONE HCL 200 MG TABLET PO (09:12)
[2023-04-06] MEDS: ENOXAPARIN 40 MG/0.4 ML SYRINGE SUB-Q (09:12)
[2023-04-06] MEDS: MONTELUKAST SODIUM 10 MG TABLET PO (09:12)
[2023-04-06] MEDS: metFORMIN HCL XR 500 MG TAB.SR.24H 2000 MG PO (09:12)
[2023-04-06] MEDS: MIDODRINE HCL 10 MG TABLET PO (09:12)
[2023-04-06] MEDS: TOLNAFTATE 1% POWDER 45 GM BTL 1 APPLIC TOPICAL (09:13)
--- NOTE | 2023-04-06 10:49 | PCNFU ---
Nutrition Follow-Up Complete: Increased protein needs as related to wounds as evidenced by unstageable pressure ulcer reported. Goal: Adequate Intake of at least 75% of meals/supplements Patient is meeting goal. No new goal. Pt current nutrition is DBCC with Reinier BID and Glucerna shakes BID. Last recorded weight is 85.4 kg. Bowel Motility:+BM reported 04/05 Labs Reviewed:No labs to report. Meds Noted:Jardiance, Protonix, Lyrica Skin: unstageable pressure ulcer-sacral Additional Notes: Patient remains on a DBCC diet. Eating 50-100% of meals. Diet supplements for wound healing Reinier BID 90 kcals and 2.5 gms protein and Glucerna shakes BID 220 kcals and 10 gms protein. Agree with diet orders. Will monitor weight, labs, skin, oral intake every 7 days.
--- NOTE | 2023-04-06 11:39 | PM.PNCARD ---
Progress Note: A&P Assessment and Plan (1) Atrial fibrillation with rapid ventricular response: Code(s): I48.91 - Unspecified atrial fibrillation Status: Acute Assessment and Plan: Paroxysmal atrial fibrillation, recurrent atrial fibrillation with RVR and atrial flutter. during this hospitalization. Pursuing rate control strategy; heart rate has been much better controlled the last few days.. Continue amiodarone p.o. 200mg daily Want to avoid termite inspector therapy with amiodarone and digoxin, so discontinued digoxin and increased metoprolol since BP has improved at this point. Increased metoprolol to 50mg b.i.d. for additional rate control. Can titrate up as needed. Anticoagulation with Eliquis resumed. (2) Chronic anticoagulation: Code(s): Z79.01 - shelter (current) use of anticoagulants Status: Acute Assessment and Plan: Eliquis resumed. Subjective Date/time seen: 04/06/23 11:39 Interval history: Reason for visit: Atrial fibrillation with RVR 73 year old male with coronary artery disease and paroxysmal atrial fibrillation.? Patient was hospitalized here for a number of days now with problems with sepsis, UTI, sacral decubitus.? Asked to sign back on the patient's case because of AF with RVR.? He is completely asymptomatic of this arrhythmia.? Started on intravenous amiodarone per the hospitalist service Date of service 03/14/2023: No complaints this morning.? He remains in atrial fibrillation with rate typically between 100-120bpm.? He is asymptomatic.? Remains on amiodarone drip. Date of service 03/15/2023: Heart rate remains not well controlled.? However, he is still asymptomatic.? He does not have any chest pain, shortness of breath, or palpitations.? Date of service 03/16: Still with intermittent RVR. Patient was hyoptensive this morning, Metoprolol could not be given due to SBP in the 70s. Date of service 03/17: Yesterday afternoon, Amiodarone drip was weaned off, however later he went back into RVR and was given a dose of Digoxin IV overnight and then later on an Amiodarone bolus. HR in the 130s this morning but patient remains asymptomatic from it and is comfortably sleeping. Date of service 03/19/2023: Heart rate is still elevated despite high-dose metoprolol, amiodarone and digoxin. He denies any chest pain or shortness of breath Date of service 03/20/2023: Transfer to the ICU yesterday because of altered mental status and lethargy. He denies any chest pain or shortness of breath. Heart rate is still elevated but a bit better controlled. Date of service 03/22/2023: Patient states he is feeling well. In atrial fibrillation, HR in the 110s-120s. Asymptomatic from it. Remains on Amiodarone drip and Levophed drip. Date of service 03/23: Remains in atrial fibrillation but rates are better. Still on Levophed. Patient resting comfortably. Date of service 03/24: Heart rate in the 110s during my evaluation this morning. Per General Surgery, may need to take patient back to the operating room in the next couple of days for debridement of the remaining portion of the nonviable sacral tissue. Date of service 03/29/2023: Rate is better controlled today, in the 70's. Off pressors at this point and BP stable. Resting comfortably in bed at the time of my visit. Amiodarone changed to p.o.. Date of service 03/30/2023: Patient feels exceptionally well this morning. Telemetry shows a flutter rate 70s to 116. Digoxin level is 1.0. Date of service 04/03/2023: Pt feels good, sat on edge of bed today, No SOB Tele shows HR up in the 120's a lot today. Date of service 04/05/2023: Feeling good with no complaints. Denies any palpitations, SOB Date of service 04/06: Patient doing well this morning without any complaints. Review of Systems Review of Systems: 8 point ROS obtained. Negative, unless stated in HPI. Exam Const: General: comfortable and no acute distress Eyes: General: appear
[2023-04-06 11:58] LABS: Glucose Point of Care 109 mg/dl (65-105)
[2023-04-06] MEDS: NEOMYCIN/POLYMYXIN/BACITRACIN OINTMENT PACKET 1 PACKET (12:11)
[2023-04-06] MEDS: oxyCODONE/ACETAMINOPHEN (*CRX) 5-325 MG TABLET 2 TABLET PO (13:10)
== END 2023-04-06 13:27 | DRG 854 ==
LOC: ANHED 21:37 → ANHICU 22:36 → ANH2MED 03-11 17:11 → ANHIMU 03-12 22:36 → ANHICU 03-20 02:36 → ANHIMU 03-31 20:50 → ANH2MED 04-02 15:26
PROVIDERS: Internal Medicine; Internal Medicine Cardiovascular Disease; Internal Medicine Nephrology; Nurse Practitioner; Preventive Medicine Aerospace Medicine; Surgery; Admitting Provider Internal Medicine; Emergency Provider Physician Assistant; PCP Internal Medicine; Visit Provider Family Medicine
PROC: 0KBN0ZZ Excision of Right Hip Muscle, Open Approach (ICD-10-PCS; principal; 2023-03-21 14:30)
PROC: 0QB10ZZ Excision of Sacrum, Open Approach (ICD-10-PCS; principal; 2023-03-29 13:30)
DX: A41.9 Sepsis, unspecified organism (principal); E87.1 Hypo-osmolality and hyponatremia; N17.9 Acute kidney failure, unspecified; N10 Acute pyelonephritis; N13.30 Unspecified hydronephrosis; Z16.21 Resistance to vancomycin; R65.20 Severe sepsis without septic shock; B95.2 Enterococcus as the cause of diseases classified elsewhere; L89.150 Pressure ulcer of sacral region, unstageable; K81.9 Cholecystitis, unspecified; N40.0 Benign prostatic hyperplasia without lower urinary tract symptoms; E11.621 Type 2 diabetes mellitus with foot ulcer; D63.8 Anemia in other chronic diseases classified elsewhere; E78.5 Hyperlipidemia, unspecified; I10 Essential (primary) hypertension; I25.10 Atherosclerotic heart disease of native coronary artery without angina pectoris; I48.0 Paroxysmal atrial fibrillation; R63.1 Polydipsia; R33.9 Retention of urine, unspecified; E87.6 Hypokalemia; Z79.01 Long term (current) use of anticoagulants; Z85.828 Personal history of other malignant neoplasm of skin; Z86.718 Personal history of other venous thrombosis and embolism; Z87.891 Personal history of nicotine dependence
CPT/HCPCS: 36415; 36430; 36569; 71045; 74177; 76775; 80048; 80053; 80162; 80202; 81001; 82274; 82436; 82550; 82570; 82607; 82746; 82948; 83036; 83540; 83550; 83605; 83690; 83735; 83880; 83930; 83935; 84100; 84133; 84300; 84484; 85025; 85027; 85610; 85730; 85999; 86850; 86900; 86901; 86920; 87040; 87070; 87075; 87077; 87086; 87186; 87205; 93005; 93306; 96365; 96367; 96368; 96375; 97110; 97161; 97162; 97165; 97166; 97530; 97535; 99285; A9270; C1751; C9113; J0282; J0295; J0330; J0613; J0692; J0696; J1160; J1650; J1815; J1836; J2185; J2250; J2371; J2405; J2597; J2704; J2997; J3010; J3370; J3473; J3475; J3480; J7030; J7042; J7050; J7120; P9016; P9047; Q9967

== ENCOUNTER 2023-04-13 15:33 | Inpatient (IN) | payer MEDICARE, OTHER, SELFPAY ==
[2023-04-13] VITALS (8 sets, daily range): BP systolic 90–95; BP diastolic 39–52; PULSE 66–92; RESP 18–22; TEMP 36.3–37.8; O2SAT 97–100; BMI 24.0
--- NOTE | ~2023-04-13 | CT_ITS ---
EXAMINATION: CT abdomen pelvis wo/w con DATE: 04/22/2023 12:49 INDICATION: Hematuria. TECHNIQUE: Computed tomography (CT) of the abdomen and pelvis was performed without and with intraven ous contrast using a total of 130 mL Omnipaque-350 intravenous contrast with a double-bolus technique for simultaneous opacification of the renal parenchyma and renal collecting system. Automated exposu re control and iterative reconstruction technique were employed. The dose-length product was 2034.20 mGy-cm. COMPARISON: CT abdomen and pelvis 03/20/2023 FINDINGS: The visualized portions of the lung bases demonstrate dependent atelectasis. Calcified left lung nodu les are consistent with old granulomatous disease. There are small pleural effusions. The heart size is normal. There are coronary artery calcifications. No pericardial effusion. There is periportal kassie ma in the liver. The gallbladder is distended. Gallbladder wall thickening is noted. The spleen, panc reas, and adrenal glands are normal. There are cysts and hemorrhagic cysts in the kidneys measuring u p to 5.8 cm on the left. The bladder is decompressed by a Whyte catheter. The prostate is moderately enlarged. There is no urolithiasis. There is urothelial thickening in the renal pelvises, consistent with pyelitis. There are filling defects in the renal pelvises. There is diverticulosis of the colon without evidence of diverticulitis. The appendix is normal. There is edema of the intra-abdominal fat and body wall. There is a stent graft in the abdominal aorta and common iliac arteries. There is a 3 .6 cm infrarenal aortic aneurysm. There are no pathologically enlarged lymph nodes. There is no free intraperitoneal fluid. Prominent fat in left inguinal canal may be a hernia. There is a sacral decubi tus ulcer with erosions of bone, consistent with osteomyelitis. There is severe lumbar spondylosis. IMPRESSION: 1. Bilateral pyelitis. Noncalcified filling defects in the proximal ureters may be hematoma. 2. Sacral decubitus ulcer with erosions of bone, consistent with osteomyelitis. 3. Small pleural effusions. 4. Gallbladder distention again seen, which may secondary to fasting. Correlate with physical exam to acute cholecystitis. Reviewed, dictated and finalized at location A.
--- NOTE | ~2023-04-13 | XR_ITS ---
XR abdomen/kub 1V 04/22/2023 14:14 Indication: Hematuria Procedure: KUB Comparison: CT dated 04/22/2023 Findings: Bowel gas pattern nonobstructive with large amount of retained fecal material in the colon. There is a Whyte catheter in the pelvis. There is an endovascular stents involving the distal abdomi nal aorta and iliac arteries. Impression: 1: Moderate colonic fecal loading. Reviewed, dictated and finalized at location B. Impression: 1: Moderate colonic fecal loading.
--- NOTE | 2023-04-13 14:40 | ADMGEN ---
This patient, John Warren, was admitted to IMU Room 203-01. Patient/family oriented to hospital policies and general routines including ID bracelet, bed and alarms, visiting hours, pain management, procedures, bathroom and other care routines, personal items, smoking policy, room service/diet, and visiting hours. Information on how to activate the Rapid Response Team has been discussed. Patient/Family are encouraged to report perceived risks to care and to ask questions if they do not understand what they are told or what they should do.
--- NOTE | 2023-04-13 15:31 | P.HP_ITS ---
H&P: HPI History of Present Illness Date/Time: 04/13/23 15:00 Chief Complaint: Worsening sacral decubitus ulcer. 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 Family History Family History Father Cancer Hypertension Heart disease Mother Cancer Diabetes mellitus Hypertension Heart disease Sibling Cancer Hypertension Heart disease Other Asthma Carcinoma of colon Cerebrovascular accident Depression Family history of arthritis Family history of cardiovascular disease Family history of chronic obstructive pulmonary disease Family history of malignant neoplasm Family history of malignant neoplasm of breast in first degree relative Family history of mental disorder Malignant neoplasm of prostate Social History Social History Social History: Surrogate medical decision maker: Rocio Peña, daughter. Code status: Full code. Smoking status: Former smoker Tobacco type: cigarettes Second hand tobacco smoke exposure: Yes Smoking end date: 08/29/85 Alcohol intake: former Substance use: never Substance use type: does not use Lack of Transportation: No Lack of Food: Never True Current Housing: I Have Housing Concerned About Future Housing: Decline to Answer Difficulty Paying Gas/Electric Bills: No Difficulty Paying for Meds: No Currently Unemployed: No Education: Decline to Answer Difficulty w/ Childcare or Family Care: No Spiritual care concerns: No Meds Home Medications and Allergies Home Medications Medication Instructions Recorded Confirmed Type montelukast 10 mg tablet 10 mg PO DAILY 05/11/21 03/08/23 History tamsulosin 0.4 mg capsule 0.4 mg PO QAM #30 caps 09/03/22 03/09/23 Rx acetaminophen 325 mg tablet (Mapap 650 mg PO Q6H PRN Mild Pain (1-3) 09/17/22 03/09/23 Rx (acetaminophen)) Or Fever #30 tabs apixaban 5 mg tablet (Eliquis) 5 mg PO BID #60 tabs 09/17/22 03/08/23 Rx aspirin 81 mg chewable tablet 81 mg PO DAILY@0800 #30 tabs 09/17/22 03/09/23 Rx (Children's Aspirin) oxycodone-acetaminophen 5 mg-325 1 tablet PO Q6H PRN Pain Rated 09/17/22 03/08/23 Rx mg tablet 7-10 #28 tabs pregabalin 75 mg capsule (Lyrica) 150 mg PO DAILY #30 caps 09/17/22 03/08/23 Rx pravastatin 40 mg tablet 40 mg PO DAILY 09/20/22 03/08/23 History sitagliptin phos 50 mg-metformin 2 tablet PO DAILY 09/20/22 03/08/23 History ER 1,000 mg tablet,extend rel 24h mp (Janumet XR) collagenase clostridium histo. 250 1 applic topical DAILY 03/08/23 03/08/23 History unit/gram topical ointment (Santyl) e
--- NOTE | 2023-04-13 15:33 | PM.IMHP ---
H&P: HPI History of Present Illness Date/Time: 04/13/23 15:00 Chief Complaint: Worsening sacral decubitus ulcer. 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 Family History Family History Father Cancer Hypertension Heart disease Mother Cancer Diabetes mellitus Hypertension Heart disease Sibling Cancer Hypertension Heart disease Other Asthma Carcinoma of colon Cerebrovascular accident Depression Family history of arthritis Family history of cardiovascular disease Family history of chronic obstructive pulmonary disease Family history of malignant neoplasm Family history of malignant neoplasm of breast in first degree relative Family history of mental disorder Malignant neoplasm of prostate Social History Social History Social History: Surrogate medical decision maker: Rocio Peña, daughter. Code status: Full code. Smoking status: Former smoker Tobacco type: cigarettes Second hand tobacco smoke exposure: Yes Smoking end date: 08/29/85 Alcohol intake: former Substance use: never Substance use type: does not use Lack of Transportation: No Lack of Food: Never True Current Housing: I Have Housing Concerned About Future Housing: Decline to Answer Difficulty Paying Gas/Electric Bills: No Difficulty Paying for Meds: No Currently Unemployed: No Education: Decline to Answer Difficulty w/ Childcare or Family Care: No Spiritual care concerns: No Meds Home Medications and Allergies Home Medications Medication Instructions Recorded Confirmed Type montelukast 10 mg tablet 10 mg PO DAILY 05/11/21 03/08/23 History tamsulosin 0.4 mg capsule 0.4 mg PO QAM #30 caps 09/03/22 03/09/23 Rx acetaminophen 325 mg tablet (Mapap 650 mg PO Q6H PRN Mild Pain (1-3) 09/17/22 03/09/23 Rx (acetaminophen)) Or Fever #30 tabs apixaban 5 mg tablet (Eliquis) 5 mg PO BID #60 tabs 09/17/22 03/08/23 Rx aspirin 81 mg chewable tablet 81 mg PO DAILY@0800 #30 tabs 09/17/22 03/09/23 Rx (Children's Aspirin) oxycodone-acetaminophen 5 mg-325 1 tablet PO Q6H PRN Pain Rated 09/17/22 03/08/23 Rx mg tablet 7-10 #28 tabs pregabalin 75 mg capsule (Lyrica) 150 mg PO DAILY #30 caps 09/17/22 03/08/23 Rx pravastatin 40 mg tablet 40 mg PO DAILY 09/20/22 03/08/23 History sitagliptin phos 50 mg-metformin 2 tablet PO DAILY 09/20/22 03/08/23 History ER 1,000 mg tablet,extend rel 24h mp (Janumet XR) collagenase clostridium histo. 250 1 applic topical DAILY 03/08/23 03/08/23 History unit/gram topical ointment (Santyl) empagliflozin 25 mg tablet 25 mg PO DAILY 03/08/23 03/08/23 History (Jardiance) metoprolol tartrate 100 mg tablet 100 mg PO BID 03/08/23 03/08/23 History mupirocin 2 % topical ointment 1 applic topical DAILY 03/08/23 03/08/23 History omeprazole 20 mg capsule,delayed 20 mg PO DAILY 03/08/23 03/08/23 History release oxybutynin chloride 5 mg tablet 5 mg PO BID 03/08/23 03/08/23 History ergocalciferol (vitamin D2) 1,250 1,250 mcg PO WEEKLY 03/09/23 03/09/23 History mcg (50,000 unit) capsule icosapent ethyl 1 gram capsule 4 g PO DAILY 03/09/23 03/09/23 History (Vascepa) valsartan 320 0.5 tablet PO DAILY 03/09/2302/26
--- NOTE | 2023-04-13 16:06 | PM.IMHP ---
H&P: HPI History of Present Illness Date/Time: 04/13/23 15:00 Chief Complaint: Sacral decubitus wound. Narrative: This is a pleasant 73-year-old male with multiple medical problems including history of DVT, type 2 diabetes mellitus, hypertension, hyperlipidemia, and paroxysmal atrial fibrillation on chronic anticoagulation who is [facility] of a reported worsening sacral decubitus wound. He is known to myself and the hospitalist service from a recent lengthy admission in which he was admitted with septic shock, pyelitis, and acute kidney injury. During that stay he had ongoing issues with difficult to control atrial fibrillation and he was taken to the OR for debridement of a sacral decubitus ulcer. He was discharged to rehab on 04/05/2023 with a wound VAC in place. He has been participating in rehab and he got up for the 1st time the other day with a walker, gait belt, and 2 person assist. He has not been feeling well in general with poor appetite and ongoing pain in the buttock region due to his decubitus ulcer. He has been taking amoxicillin 1000 mg p.o. q.8 hours for that wound. Transfer was initiated to [place] for consultation with his surgeon as they reportedly had concerns for a worsening wound though the wound VAC had not been removed. He has been afebrile since arrival with blood pressures at the low end of normal which is not unusual for him. At the time my evaluation he complains of posterior pain but he is otherwise in good spirits. He denies fever, chills, sweats, vomiting, and diarrhea. Review of Systems Review of Systems: Twelve systems were reviewed and are negative except for as per HPI. 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 Family History Family History Father Cancer Hypertension Heart disease Mother Cancer Diabetes mellitus Hypertension Heart disease Sibling Cancer Hypertension Heart disease Other Asthma Carcinoma of colon Cerebrovascular accident Depression Family history of arthritis Family history of cardiovascular disease Family history of chronic obstructive pulmonary disease Family history of malignant neoplasm Family history of malignant neoplasm of breast in first degree relative Family history of mental disorder Malignant neoplasm of prostate Social History Social History Social History: Surrogate medical decision maker: Rocio Peña, daughter. Code status: Full code. Smoking status: Former smoker Tobacco type: cigarettes Second hand tobacco smoke exposure: Yes Smoking end date: 08/29/85 Alcohol intake: never Substance use: never Substance use type: does not use Lack of Transportation: No Lack of Food: Never True Current Housing: I Have Housing Concerned About Future Housing: Decline to Answer Difficulty Paying Gas/Electric Bills: No Difficulty Paying for Meds: No Currently Unemployed: No Education: Decline to Answer Difficulty w/ Childcare or Family Care: No Spiritual care concerns: No Meds Home Medications and Allergies Home Medications Medication Instructions Recorded Confirmed Type montelukast 10 mg tablet 10 mg PO DAILY 05/11/21 04/13/23 History tamsulosin 0.4 mg capsule 0.4 mg PO QAM #30 caps 09/03/22 04/13/23 Rx acetaminophen
--- NOTE | 2023-04-13 16:51 | PC.NURSE ---
Called Dr. Mendoza office at [phone] to advise patient direct admit arrival, and to notify that wound vac was disconnected at facility prior to arrival. Message left with his office. Called Calin, wound RN, for guidance on how to proceed. Was advised, per wound RN, to remove wound vac dressing, and apply wet to dry dressing. Dressing was then removed, wound photo obtained. Wet to dry dressing applied with normal saline saturated guaze pads, covered with dry gauze pads, abd dressing, and medipore tape. Patient tolerated well.
[2023-04-13 17:00] LABS: Glucose Point of Care 159 mg/dl (65-105)
[2023-04-13 19:49] LABS: Glucose Point of Care 212 mg/dl (65-105)
[2023-04-13] MEDS: INSULIN ASPART (*BKC) 100 UNITS/ML SUB-Q (22:06)
[2023-04-13] MEDS: SALINE LOCK FLUSH 10 ML IV PUSH (22:07)
[2023-04-13] MEDS: oxyCODONE/ACETAMINOPHEN (*CRX) 5-325 MG TABLET 1 TABLET PO (22:22)
[2023-04-14] VITALS (13 sets, daily range): BP systolic 92–111; BP diastolic 42–51; PULSE 65–90; RESP 16–24; TEMP 36.4–37.6; O2SAT 93–98; BMI 24.0
[2023-04-14] MEDS: PIPERACILLN/TAZ 3.375GM/NS50ML 3.375 GM/50 ML BAG IVPB ×5 (00:17→23:12)
[2023-04-14 04:44] LABS: Hematocrit 29.6 % (42.0-52.0); Hemoglobin 8.7 g/dL (14.0-18.0); Mean Corpuscular HGB Conc 29.4 g/dl (32-36); Mean Corpuscular Hemoglobin 24.9 pg (26-34); Mean Corpuscular Volume 84.8 fl (80-100); Mean Platelet Volume 10.1 fl (7.4-10.4); Platelet Count Result 295 k/mm3 (150-375); Red Blood Count 3.49 M/mm3 (4.6-6.20); Red Cell Distribution Width 17.8 % (11.5-14.5); White Blood Count 6.8 K/mm3 (4.5-10.0)
[2023-04-14 04:55] LABS: Alanine Aminotransferase 18 U/L (6-50); Albumin Level 2.2 g/dL (3.5-5.1); Alkaline Phosphatase 141 U/L (38-126); Anion Gap 6 mmol/L (8-16); Aspartate Amino Transferase 26 U/L (17-59); Bilirubin,Total 0.3 mg/dL (0.2-1.3); Blood Urea Nitrogen 35 mg/dL (9-20); Calcium 7.4 mg/dL (8.4-10.2); Carbon Dioxide 21 mmol/L (22-30); Chloride 107 mmol/L (98-107); Estimated CRCL calculation 81 ml/min; Estimated Glomerular Filt Rate > 60; Glucose 191 mg/dL (65-110); Magnesium 1.7 mg/dL (1.6-2.3); Potassium 4.3 mmol/L (3.4-5.0); Sodium 134 mmol/L (137-145)
[2023-04-14 05:47] LABS: Digoxin 1.5 ng/mL (0.8-2.0)
[2023-04-14] MEDS: SALINE LOCK FLUSH 10 ML IV PUSH ×3 (05:53→20:38)
[2023-04-14 07:53] LABS: Glucose Point of Care 190 mg/dl (65-105)
[2023-04-14] MEDS: TAMSULOSIN HCL 0.4 MG CAPSULE PO (08:38)
[2023-04-14] MEDS: ASPIRIN 81 MG CHEWABLE TABLET PO (08:38)
[2023-04-14] MEDS: EMPAGLIFLOZIN 25 MG TABLET PO (08:38)
[2023-04-14] MEDS: metFORMIN HCL XR 500 MG TAB.SR.24H 2000 MG PO (08:38)
[2023-04-14] MEDS: OMEGA 3 POLYUNSAT FATTY ACIDS 1 GM CAP 4 GM PO (08:38)
[2023-04-14] MEDS: AMIODARONE HCL 200 MG TABLET PO (08:39)
[2023-04-14] MEDS: MIDODRINE HCL 10 MG TABLET PO ×3 (08:39→17:33)
[2023-04-14] MEDS: MONTELUKAST SODIUM 10 MG TABLET PO (08:39)
[2023-04-14] MEDS: METOPROLOL TARTRATE 50 MG TAB PO ×2 (08:39→17:33)
[2023-04-14] MEDS: FINASTERIDE 5 MG TABLET PO (08:39)
[2023-04-14] MEDS: PANTOPRAZOLE 40 MG TABLET PO ×2 (08:39→17:33)
[2023-04-14] MEDS: DIGOXIN 250 MCG TABLET PO (08:39)
[2023-04-14] MEDS: oxyBUTYnin CHLORIDE 5 MG TABLET PO ×2 (08:39→17:33)
[2023-04-14] MEDS: PRAVASTATIN SODIUM 20 MG TABLET 40 MG PO (08:39)
[2023-04-14] MEDS: MUPIROCIN 2% OINT 22 GM TUBE 1 APPLIC TOPICAL (08:40)
[2023-04-14] MEDS: COLLAGENASE OINT 30 GM TUBE 1 APPLIC TOPICAL (08:40)
[2023-04-14] MEDS: TOLNAFTATE 1% POWDER 45 GM BTL 1 APPLIC TOPICAL ×2 (08:40→20:38)
[2023-04-14 11:16] LABS: Glucose Point of Care 222 mg/dl (65-105)
--- NOTE | 2023-04-14 11:38 | WPDCN ---
Assessment and Plan Assessment and plan (1) Decubitus ulcer: Code(s): L89.90 - Pressure ulcer of unspecified site, unspecified stage Status: Acute Assessment and Plan: Patient was transferred back [facility] for evaluation of his stage IV sacral decubitus wound. Overall I feel the wound has improved since the last application of the allograft. there is been development of a granulation base over about 80% of the wound after the last application of the allograft. There is a small amount of nonviable subcutaneous tissue in the right lateral side which is superficial and can likely stand to be debrided. We will plan on taking the patient to the operating room since he has been transferred and readmitted to perform debridement of this nonviable tissue and application of another allograft and wound VAC. This was explained to the patient is agreeable with plan. HPI Data of Consult Date/Time: 04/14/23 11:38 Requesting Physician: Vaughn Jarvis MD Primary Care Provider: Mario Salmeron, Consult Narrative Reason for consult: Chronic sacral decubitus wound, stage IV Narrative: John Warren is a 73 year old male who was transferred back from [facility] acute inpatient rehab to the floor yesterday due to with the rehab physician thought was worsening condition of his sacral decubitus wound. He felt there was then significant amount of necrotic tissue that would need to be debrided. Patient continues to be very deconditioned though he stated he was getting a little stronger and rehab. He states they were putting a wound VAC on him in rehab he arrived on the floor without wound VAC in place. He has previously had debridement of the wound and placement of a Axial Fill allograft to the wound with placement of wound vac about 2 weeks ago. White blood cell count on admission is 8700 he is afebrile. Blood pressure is a little on the low side but he has always been running a little low. Review of Systems Review of Systems: The remainder of the review of systems to include constitutional, HEENT, cardiovascular, respiratory, GI, , integumentary, musculoskeletal, endocrine, immunologic, hematologic, psychiatric, and neurologic are all negative except for which is mentioned above in the HPI. 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 Family History Family History Father Cancer Hypertension Heart disease Mother Cancer Diabetes mellitus Hypertension Heart disease Sibling Cancer Hypertension Heart disease Other Asthma Carcinoma of colon Cerebrovascular accident Depression Family history of arthritis Family history of cardiovascular disease Family history of chronic obstructive pulmonary disease Family history of malignant neoplasm Family history of malignant neoplasm of breast in first degree relative Family history of mental disorder Malignant neoplasm of prostate Social History Social History Social History: Surrogate medical decision maker: Rocio Peña, daughter. Code status: Full code. Smoking status: Former smoker Tobacco type: cigarettes Second hand tobacco smoke exposure: Yes Smoking end date: 08/29/85 Alcohol intake: never Substance use: never Substance use type: does not use Lack of Transportation: No Lack of Fo
[2023-04-14] MEDS: INSULIN ASPART (*BKC) 100 UNITS/ML SUB-Q ×2 (12:49→20:37)
--- NOTE | 2023-04-14 14:56 | PM.IMPN ---
Progress Note: A&P Assessment and Plan (1) Sacral decubitus ulcer: Qualifiers: Pressure injury stage: unspecified pressure injury stage Qualified Code(s): L89.159 - Pressure ulcer of sacral region, unspecified stage Code(s): L89.159 - Pressure ulcer of sacral region, unspecified stage Status: Acute Assessment and Plan: The patient was directly [facility] for evaluation and treatment of a reported worsening sacral decubitus ulcer as per HPI. WBC normal and no fevers. Gen Surg consulted and felt the wound looked improved. There is some small area that could be debrided and this will be performed. Continue local wound care and topical debridement. BCx NGTD. Continue Zosyn. (2) Hypotension: Code(s): I95.9 - Hypotension, unspecified Status: Acute Assessment and Plan: Patient has low blood pressure felt related to above but may be chronic. Will continue IV fluids but change to NS. Will continue metoprolol and place parameters. He is on midodrine chronically so suspect this is a chronic issue. (3) Atrial fibrillation: Code(s): I48.91 - Unspecified atrial fibrillation Status: Acute Assessment and Plan: Patient with chronic AFib. Rate controlled. Continue Amio, metoprolol with parameters and Digoxin. Dig level 1.5. Eliquis on hold for debridement. Resume Eliquis when able (4) Type 2 diabetes mellitus: Code(s): E11.9 - Type 2 diabetes mellitus without complications Status: Acute Assessment and Plan: A1c 7.3. The patient's blood glucose was reviewed on 04/14 Glucose mildly elevated at times. Continue AccuCheks covering with sliding scale. Hypoglycemia protocol available as needed. Diabetic diet. Continue current medications. Subjective Date/time seen: 04/14/23 14:56 Interval history: 73yo male with hx of DVT, DM, HTN and pAFib here for worsening sacral decubitus ulcer. He feels tired. No Cp or SOB. No fever or chills. No diarrhea. No abd pain. No n/v. Exam Narrative: AF 99.5 99/51 71 20 96% ra Gen - NARD Chest - clear anteriorly except decreased BS in the flanks. CV - irregularly irregular; Tele showing AFib with controlled rate. Abd - Soft, NT/ND, Positive BS. flank edema - Whyte secured draining clear yellow urine. Ext - deandre hose in place. periankle edema. Psych - Nml mood and affect Skin - Warm and dry Objective Data Vital Signs Vital Signs: Vital Signs - 24 hr 04/13/23 16:01 04/13/23 16:00 04/13/23 18:00 Temperature 97.3 F L Pulse Rate 66 71 78 Respiratory Rate 20 Blood Pressure 92/39 L Pulse Oximetry 100 Oxygen Delivery 04/13/23 16:00 04/13/23 20:00 04/13/23 20:00 Temperature 97.6 F Pulse Rate 79 82 Respiratory Rate 18 Blood Pressure 95/44 L Pulse Oximetry 97 Oxygen Delivery Room Air 04/13/23 20:00 04/13/23 22:07 04/13/23 22:00 Temperature Pulse Rate 92 84 Respiratory Rate Blood Pressure Pulse Oximetry Oxygen Delivery Room Air 04/13/23 23:20 04/14/23 00:00 04/14/23 00:00 Temperature 100.0 F H Pulse Rate 83 65 Respiratory Rate 20 Blood Pressure 92/52 L Pulse Oximetry 98 Oxygen Delivery Room Air 04/14/23 02:00 04/14/23 04:00 04/14/23 04:00 Temperature Pulse Rate 86 82 Respiratory Rate Blood Pressure Pulse Oximetry Oxygen Delivery Room Air 04/14/23 04:00 04/14/23 06:00 04/14/23 08:00 Temperature 98.5 F 99.3 F Pulse Rate 90 87 88 Respiratory Rate 18 20 Blood Pressure 92/45 L 104/50 L Pulse Oximetry 93 95 Oxygen Delivery 04/14/23 08:00 04/14/23 08:00 04/14/23 10:00 Temperature Pulse Rate 89 84 Respiratory Rate Blood Pressure Pulse Oximetry Oxygen Delivery Room Air 04/14/23 12:00 04/14/23 12:00 04/14/23 12:00 Temperature 99.5 F Pulse Rate 77 75 Respiratory Rate 20 Blood Pressure 99/51 L Pulse Oximetry 96 Oxygen Delivery Room Air
[2023-04-14 17:03] LABS: Glucose Point of Care 134 mg/dl (65-105)
[2023-04-14] MEDS: SODIUM CHLORIDE 0.9% IV 1,000 ML 75 ML IV CONT (17:37)
[2023-04-14 20:07] LABS: Glucose Point of Care 231 mg/dl (65-105)
[2023-04-15] VITALS (15 sets, daily range): BP systolic 85–120; BP diastolic 38–66; PULSE 52–96; RESP 16–24; TEMP 36.3–37.4; O2SAT 97–100
[2023-04-15] MEDS: PIPERACILLN/TAZ 3.375GM/NS50ML 3.375 GM/50 ML BAG IVPB ×3 (06:19→17:03)
[2023-04-15] MEDS: SALINE LOCK FLUSH 10 ML IV PUSH ×3 (06:20→22:20)
[2023-04-15] MEDS: SODIUM CHLORIDE 0.9% IV 1,000 ML 75 ML IV CONT (06:20)
[2023-04-15 06:31] LABS: Basophils Percent Auto 0.4 % (0.2-1.2); Eosinophils Percent Auto 0.3 % (0-4.4); Hematocrit 31.3 % (42.0-52.0); Hemoglobin 9.4 g/dL (14.0-18.0); Immature Granulocyte Absolute 0.09 K/mm3 (0.00-0.031); Immature Granulocyte Percent A 1.2 % (0-0.5); Lymphocytes Absolute Auto 1.88 K/mm3 (0.9-3.2); Lymphocytes Percent Auto 24.1 % (18.3-44.2); Mean Corpuscular Hemoglobin 25.6 pg (26-34); Mean Corpuscular Volume 85.3 fl (80-100); Mean Platelet Volume 10.2 fl (7.4-10.4); Monocytes Absolute Auto 0.7 K/mm3 (0.1-0.6); Monocytes Percent Auto 8.9 % (2.6-8.5); Neutrophils Absolute Auto 5.1 K/mm3 (1.3-6.7); Neutrophils Percent Auto 65.1 % (45.5-73.1); Platelet Count Result 348 k/mm3 (150-375); Red Blood Count 3.67 M/mm3 (4.6-6.20); White Blood Count 7.8 K/mm3 (4.5-10.0)
[2023-04-15 06:44] LABS: Albumin Level 2.2 g/dL (3.5-5.1); Anion Gap 6 mmol/L (8-16); Blood Urea Nitrogen 30 mg/dL (9-20); Calcium 7.4 mg/dL (8.4-10.2); Carbon Dioxide 19 mmol/L (22-30); Chloride 109 mmol/L (98-107); Estimated CRCL calculation 105 ml/min; Estimated Glomerular Filt Rate > 60; Glucose 164 mg/dL (65-110); Magnesium 1.8 mg/dL (1.6-2.3); Phosphorus 3.3 mg/dL (2.5-4.5); Potassium 3.9 mmol/L (3.4-5.0); Sodium 134 mmol/L (137-145)
--- NOTE | 2023-04-15 07:18 | WPDCDIQUERY2 ---
CDI Query Clarification Request BMI 24.0 Nutritional Diagnostic Statement Severe malnutrition related to inadequate protein-energy intake with increased protein-energy needs in setting of chronic disease or condition (stage IV sacral decubitus ulcer/diabetes) as evidenced by severe muscle loss noted in the following areas: temporalis/clavicle region and weight loss of 24 lbs (12%) [employer]TE[employer] per patient reported UBW ( 200lb). Please refer to the comprehensive nutrition assessment for further information. Please clarify severity of protein calorie malnutrition: Mild Moderate Severe Other/Unspecified
[2023-04-15 08:08] LABS: Glucose Point of Care 169 mg/dl (65-105)
[2023-04-15] MEDS: LACTATED RINGERS 1,000 ML 30 ML IV CONT (09:00)
--- NOTE | 2023-04-15 09:46 | SUR.PREOP ---
[id number]. KRIS DIXON TRANSPORTED PT TO PREOP-TELEMETRY LEFT AT IMU BEDSIDE.
--- NOTE | 2023-04-15 10:15 | WPDANESEPPF ---
Anes - Initial Pre Proc Eval Procedure: Operation Date: 04/15/23 10:00 Proposed Procedures p Sacral Decubitus Ulcer Debridement with Allograft and Wound Vac Application - Rian Mendoza MD Date/Time: 04/15/23 10:15 Surgeon: Vaughn Jarvis MD Pre Op Diagnosis: stage 4 Patient Data Age: 73 Gender: M Height: 1.83 m Weight: 80.4 kg Last Vital Signs Temp 99.3 F 04/15/23 08:59 Pulse 64 04/15/23 08:59 Resp 16 04/15/23 08:59 BP 110/52 L 04/15/23 08:59 Pulse Ox 98 04/15/23 08:59 O2 Del Method Room Air 04/15/23 08:59 Allergies Allergy/AdvReac Type Severity Reaction Status Date / Time No Known Allergies Allergy Verified 03/08/23 17:07 Home Medications Medication Instructions Recorded Confirmed Type montelukast 10 mg tablet 10 mg PO DAILY 05/11/21 04/13/23 History tamsulosin 0.4 mg capsule 0.4 mg PO QAM #30 caps 09/03/22 04/13/23 Rx acetaminophen 325 mg tablet (Mapap 650 mg PO Q6H PRN Mild Pain (1-3) 09/17/22 04/13/23 Rx (acetaminophen)) Or Fever #30 tabs apixaban 5 mg tablet (Eliquis) 5 mg PO BID #60 tabs 09/17/22 04/13/23 Rx aspirin 81 mg chewable tablet 81 mg PO DAILY@0800 #30 tabs 09/17/22 04/13/23 Rx (Children's Aspirin) pregabalin 75 mg capsule (Lyrica) 150 mg PO DAILY #30 caps 09/17/22 04/13/23 Rx pravastatin 40 mg tablet 40 mg PO DAILY 09/20/22 04/13/23 History sitagliptin phos 50 mg-metformin 2 tablet PO DAILY 09/20/22 04/13/23 History ER 1,000 mg tablet,extend rel 24h mp (Janumet XR) collagenase clostridium histo. 250 1 applic topical DAILY 03/08/23 04/13/23 History unit/gram topical ointment (Santyl) empagliflozin 25 mg tablet 25 mg PO DAILY 03/08/23 04/13/23 History (Jardiance) metoprolol tartrate 100 mg tablet 100 mg PO BID 03/08/23 04/13/23 History mupirocin 2 % topical ointment 1 applic topical DAILY 03/08/23 04/13/23 History omeprazole 20 mg capsule,delayed 20 mg PO DAILY 03/08/23 04/13/23 History release oxybutynin chloride 5 mg tablet 5 mg PO BID 03/08/23 04/13/23 History ergocalciferol (vitamin D2) 1,250 1,250 mcg PO WEEKLY 03/09/23 04/13/23 History mcg (50,000 unit) capsule icosapent ethyl 1 gram capsule 4 g PO DAILY 03/09/23 04/13/23 History (Vascepa) amiodarone 200 mg tablet (Pacerone) 200 mg PO DAILY@0800 #30 tabs 04/05/23 04/13/23 Rx amoxicillin 500 mg capsule 1,000 mg PO Q8HR #8 caps 04/05/23 04/13/23 Rx bisacodyl 5 mg tablet,delayed 5 mg PO QAM PRN Constipation #30 04/05/23 04/13/23 Rx release (Laxative (bisacodyl)) tabs digoxin 250 mcg (0.25 mg) tablet 250 mcg PO QAM #30 tabs 04/05/23 04/13/23 Rx (Digitek) finasteride 5 mg tablet (Proscar) 5 mg PO QAM #30 tabs 04/05/23 04/13/23 Rx metoprolol succinate 100 mg 200 mg PO QAM #30 tabs 04/05/23 04/13/23 Rx tablet,extended release 24 hr (Toprol XL) midodrine 10 mg tablet 10 mg PO TID #90 tabs 04/05/23 04/13/23 Rx oxycodone-acetaminophen 5 mg-325 1 tablet PO Q6H PRN Pain Rated 4-6 04/05/23 04/13/23 Rx mg tablet #12 tabs pantoprazole 40 mg tablet,delayed 40 mg PO BID #60 tabs 04/05/23 04/13/23 Rx release (Protonix) polyethylene glycol 3350 17 gram 17 g PO QAM PRN constipation #14 ea 04/05/23 04/13/23 Rx oral powder packet (Miralax) tolnaftate 1 % topical powder 1 applic topical Q12HR #45 grams 04/05/23 04/13/23 Rx Laboratory Tests 04/14/23 04/14/23 04/14/23 11:13 16:25 19:51 WBC RBC Hgb Hct MCV MCH MCHC RDW Plt Count MPV Immature Gran % (Auto) Neut % (Auto) Lymph % (Auto) Dolores % (Auto) Eos % (Auto) Baso % (Auto) Lymph # (Auto) Dolores # (Auto) Eos # (Auto) Baso # (Auto) Abs Immat Gran (auto) Absolute Neuts (auto) Absolute Nucleated RBC Nucleated RBC % Sodium
--- NOTE | 2023-04-15 10:16 | WPDHPUPDATE1 ---
History and Physical Update Update Date/Time: 04/15/23 10:16 History and Physical has been reviewed, including an updated exam of the patient. There are NO changes in the patient's condition. Risks, benefits, and alternatives have been discussed and questions answered. Patient agrees to proceed with procedure.
--- NOTE | 2023-04-15 10:32 | PM.IMPN ---
Progress Note: A&P Assessment and Plan (1) Sacral decubitus ulcer: Qualifiers: Pressure injury stage: unspecified pressure injury stage Qualified Code(s): L89.159 - Pressure ulcer of sacral region, unspecified stage Code(s): L89.159 - Pressure ulcer of sacral region, unspecified stage Status: Acute Assessment and Plan: The patient was directly admitted from [facility] for evaluation and treatment of worsening sacral decubitus ulcer. WBC normal and no fevers. Gen Surg consulted and felt the wound looked improved overall but did recommend debridement of a small area. Debridement performed earlier today. Continue local wound care and topical debridement. BCx NGTD. Continue Zosyn. (2) Hypotension: Code(s): I95.9 - Hypotension, unspecified Status: Acute Assessment and Plan: Patient has low blood pressure felt related to above but may be chronic or acute/chronic. On midodrine chronically. Treated with IV fluids. Continue metoprolol with parameters. Monitor closely (3) Atrial fibrillation: Code(s): I48.91 - Unspecified atrial fibrillation Status: Acute Assessment and Plan: Patient with chronic AFib. Rate controlled. Continue Amio, metoprolol with parameters and Digoxin. Dig level 1.5. Eliquis on hold for debridement. Resume Eliquis (4) Type 2 diabetes mellitus: Code(s): E11.9 - Type 2 diabetes mellitus without complications Status: Acute Assessment and Plan: A1c 7.3. The patient's blood glucose was reviewed on 04/15 Glucose mildly elevated but improved Continue AccuCheks covering with sliding scale. Hypoglycemia protocol available as needed. Diabetic diet. Continue current medications. (5) Severe malnutrition: Code(s): E43 - Unspecified severe protein-calorie malnutrition Status: Acute Assessment and Plan: Patient with severe malnutrition related to inadequate protein energy intake with increased protein energy needs in the setting of chronic disease with diabetes and stage IV sacral decubitus ulcer as evidenced by severe muscle loss noted in the following areas: Temporalis and clavicular region as well as weight loss of 24 lb prior to admission. Subjective Date/time seen: 04/15/23 10:32 Interval history: 73yo male with hx of DVT, DM, HTN and pAFib here for worsening sacral decubitus ulcer. Back from debridement. No n/v. No CP or SOB. Exam Narrative: AF 99.3 110/52 64 16 98% ra Gen - NARD Chest - decreased BS in left base o/w clear. CV - irregularly irregular; Tele showing AFib with controlled rate. Abd - soft, NT/ND. flank edema - Whyte secured draining clear yellow urine. Ext - Wenceslao hose in place. periankle edema. Psych - Nml mood and affect Skin - Warm and dry Objective Data Vital Signs Vital Signs: Vital Signs - 24 hr 04/14/23 12:00 04/14/23 12:00 04/14/23 12:00 Temperature 99.5 F Pulse Rate 77 75 Respiratory Rate 20 Blood Pressure 99/51 L Pulse Oximetry 96 Oxygen Delivery Room Air 04/14/23 14:00 04/14/23 16:00 04/14/23 16:00 Temperature 99.6 F Pulse Rate 71 80 Respiratory Rate 24 H Blood Pressure 105/49 L Pulse Oximetry 95 Oxygen Delivery Room Air 04/14/23 16:00 04/14/23 18:00 04/14/23 20:00 Temperature 97.8 F Pulse Rate 77 90 87 Respiratory Rate 16 Blood Pressure 100/45 L Pulse Oximetry 98 Oxygen Delivery 04/14/23 20:00 04/14/23 20:00 04/14/23 22:00 Temperature Pulse Rate 77 75 Respiratory Rate Blood Pressure Pulse Oximetry Oxygen Delivery Room Air 04/14/23 23:38 04/14/23 23:40 04/15/23 00:00 Temperature 97.6 F Pulse Rate 71 87 Respiratory Rate 18 Blood Pressure 111/42 L Pulse Oximetry 96 Oxygen Delivery Room Air 04/15/23 04:00 04/15/23 02:00 04/15/23 04:00 Temperature 98.2 F Pulse Rate 83 82 Respiratory Rate 18 Blood Pressure 116/45 L Pulse Oximetry 99 Oxygen D
--- NOTE | 2023-04-15 12:15 | SUR.PHASEI ---
1215: Simple mask removed.
[2023-04-15 12:23] LABS: Glucose Point of Care 153 mg/dl (65-105)
--- NOTE | 2023-04-15 12:38 | PM.OP ---
Procedure Note - Brief Procedure Note - Brief Date of procedure: 04/15/23 stage 4 sacral decubitus ulcer Post-op diagnosis: Same Procedure performed: Sharp scalpel debridement of skin, subcutaneous tissue, muscle, fascia, periosteum, and bone sacral decubitus ulcer with application of Axial Fill allograft and placement of wound VAC. Surgeon: Rian Mendoza MD Anesthesia: GETA Implants: Axial Fill allograft Estimated blood loss (mL): 25 Urine output (mL): -400.0 Drains: No Packing: Yes (Wound VAC) Pathology: None sent Complications: No immediate complications Condition: Stable Disposition: PACU
[2023-04-15] MEDS: OMEGA 3 POLYUNSAT FATTY ACIDS 1 GM CAP 4 GM PO (13:45)
[2023-04-15] MEDS: DIGOXIN 250 MCG TABLET PO (13:46)
[2023-04-15] MEDS: ASPIRIN 81 MG CHEWABLE TABLET PO (13:46)
[2023-04-15] MEDS: PRAVASTATIN SODIUM 20 MG TABLET 40 MG PO (13:46)
[2023-04-15] MEDS: TAMSULOSIN HCL 0.4 MG CAPSULE PO (13:46)
[2023-04-15] MEDS: AMIODARONE HCL 200 MG TABLET PO (13:46)
[2023-04-15] MEDS: MONTELUKAST SODIUM 10 MG TABLET PO (13:46)
[2023-04-15] MEDS: metFORMIN HCL XR 500 MG TAB.SR.24H 2000 MG PO (13:46)
[2023-04-15] MEDS: oxyBUTYnin CHLORIDE 5 MG TABLET PO ×2 (13:47→17:03)
[2023-04-15] MEDS: FINASTERIDE 5 MG TABLET PO (13:47)
[2023-04-15] MEDS: EMPAGLIFLOZIN 25 MG TABLET PO (13:47)
[2023-04-15] MEDS: PANTOPRAZOLE 40 MG TABLET PO ×2 (13:47→17:03)
[2023-04-15] MEDS: MIDODRINE HCL 10 MG TABLET PO ×2 (13:48→17:03)
[2023-04-15] MEDS: TOLNAFTATE 1% POWDER 45 GM BTL 1 APPLIC TOPICAL ×2 (14:01→22:20)
[2023-04-15] MEDS: PREGABALIN (*CRX) 75 MG CAPSULE 150 MG PO (14:01)
[2023-04-15] MEDS: oxyCODONE/ACETAMINOPHEN (*CRX) 5-325 MG TABLET 1 TABLET PO (14:03)
--- NOTE | 2023-04-15 14:41 | W.PM.PROC2 ---
Procedure Note - Detailed Date of Procedure 04/15/23 Pre-op Diagnosis stage 4 sacral decubitus ulcer Post-op Diagnosis Same Procedure Performed Sharp scalpel debridement of skin, subcutaneous tissue, muscle, fascia, periosteum, and bone from sacral decubitus ulcer with application of Axial Fill allograft and wound VAC Surgeon Rian Mendoza MD Anesthesia General Indications Patient is a 73-year-old gentleman who has developed a large chronic stage IV sacral decubitus ulcer. He had a prolonged hospitalization the mobilization which contributed to development of the sacral decubitus ulcer. He was in acute rehab and the physician there felt that he needed debridement of the wound and he was transferred back [facility]. On examination he appears to have additional necrotic skin and subcutaneous tissue and he is now being brought to the operating room for additional debridement of necrotic tissue and application Axial Fill allograft and a wound VAC Findings Additional necrotic skin and subcutaneous tissue as well as more necrotic muscle fascia and periosteum to the sacrum was found. A small amount of bone was actually debrided as well. The resulting wound after debridement measured 16cm in length by 15cm in width by 1.5cm in depth. Description of Procedure After informed consent was obtained patient brought to the operating room was placed under general endotracheal anesthesia on the gurney and then turned onto the prone naren-knife position on the operating table. Care was taken make sure all the pressure points well padded. The area of the sacrum was then prepped and draped usual sterile fashion. A time-out was then performed correctly identifying the patient as well as procedure to be performed. He was already on scheduled IV antibiotics. I then proceeded to irrigate the wound and then identified additional necrotic skin and subcutaneous tissue on the left lateral side of the wound. This was sharply debrided away with a scalpel. Additional necrotic muscle and periosteum and fascia at the base the wound was also debrided sharply with a scalpel. Very small amount of bone from the sacrum was also removed. When I had finished the debridement all the tissue appeared to be viable with bleeding from the tissue. Achieved hemostasis in the wound with judicious electrocautery. I then irrigated with sterile saline solution was all clean. I then placed the Axial Fill allograft along the whole base of the wound which measures 16 by 15cm. Adaptic gauze was then placed on top of the graft to protected from the wound VAC. black foam wound VAC was then applied on top of the Adaptic gauze and then the clear adherent dressing was applied. The black gauze was brought to the right side of the hip so that the patient would not lie on the suction pad or tubing. I was able to get a good seal on the wound VAC without any air leak. The patient tolerated the procedure well no complications. All sponges, needles, and instrument counts were correct at the end procedure. EBL was _ 30 __cc. The patient was awakened and taken to recovery in stable and satisfactory condition. Implants Axial Fill allograft. Estimated Blood Loss 30 Urine Output -400.0 Drains No Packing Yes (Wound VAC) Pathology None sent Complications No immediate complications Condition Stable Disposition PACU [facility] Billing Surgery - Charge Forward: Surgery Billing
[2023-04-15 17:03] LABS: Glucose Point of Care 154 mg/dl (65-105)
[2023-04-15] MEDS: APIXABAN 5 MG TABLET PO (17:04)
[2023-04-15 21:19] LABS: Glucose Point of Care 172 mg/dl (65-105)
[2023-04-16] VITALS (11 sets, daily range): BP systolic 90–107; BP diastolic 38–57; PULSE 61–97; RESP 15–18; TEMP 36.1–36.9; O2SAT 98–100
[2023-04-16] MEDS: PIPERACILLN/TAZ 3.375GM/NS50ML 3.375 GM/50 ML BAG IVPB ×4 (00:14→18:10)
[2023-04-16 04:59] LABS: Basophils Percent Auto 0.5 % (0.2-1.2); Eosinophils Absolute Auto 0.1 K/mm3 (0-0.3); Eosinophils Percent Auto 1.3 % (0-4.4); Hematocrit 28.5 % (42.0-52.0); Hemoglobin 8.4 g/dL (14.0-18.0); Immature Granulocyte Absolute 0.07 K/mm3 (0.00-0.031); Immature Granulocyte Percent A 1.2 % (0-0.5); Lymphocytes Absolute Auto 1.64 K/mm3 (0.9-3.2); Mean Corpuscular HGB Conc 29.5 g/dl (32-36); Mean Corpuscular Hemoglobin 25.5 pg (26-34); Mean Corpuscular Volume 86.6 fl (80-100); Mean Platelet Volume 9.7 fl (7.4-10.4); Monocytes Absolute Auto 0.6 K/mm3 (0.1-0.6); Monocytes Percent Auto 9.1 % (2.6-8.5); Neutrophils Absolute Auto 3.7 K/mm3 (1.3-6.7); Neutrophils Percent Auto 60.9 % (45.5-73.1); Platelet Count Result 296 k/mm3 (150-375); Red Blood Count 3.29 M/mm3 (4.6-6.20); Red Cell Distribution Width 17.7 % (11.5-14.5); White Blood Count 6.1 K/mm3 (4.5-10.0)
[2023-04-16 05:13] LABS: Albumin Level 2.2 g/dL (3.5-5.1); Anion Gap 7 mmol/L (8-16); Blood Urea Nitrogen 29 mg/dL (9-20); Calcium 7.3 mg/dL (8.4-10.2); Carbon Dioxide 20 mmol/L (22-30); Chloride 109 mmol/L (98-107); Estimated CRCL calculation 92 ml/min; Estimated Glomerular Filt Rate > 60; Glucose 140 mg/dL (65-110); Magnesium 1.8 mg/dL (1.6-2.3); Phosphorus 3.8 mg/dL (2.5-4.5); Sodium 136 mmol/L (137-145)
--- NOTE | 2023-04-16 07:50 | PM.IMPN ---
Progress Note: A&P Assessment and Plan (1) Sacral decubitus ulcer: Qualifiers: Pressure injury stage: unspecified pressure injury stage Qualified Code(s): L89.159 - Pressure ulcer of sacral region, unspecified stage Code(s): L89.159 - Pressure ulcer of sacral region, unspecified stage Status: Acute Assessment and Plan: The patient was directly admitted from [facility] for evaluation and treatment of worsening sacral decubitus ulcer. WBC normal and no fevers. Gen Surg consulted and felt the wound looked improved overall but did recommend debridement of a small area. Debridement performed on 04/15. Continue local wound care and topical debridement. BCx NGTD. Continue Zosyn. (2) Hypotension: Code(s): I95.9 - Hypotension, unspecified Status: Acute Assessment and Plan: Patient has low blood pressure felt related to above but may be chronic or acute/chronic. Has low albumin which contributes to his HoTN. Encouraged oral intake. Add supplements. On midodrine chronically. Treated with IV fluids but now off. Continue metoprolol with parameters. Monitor closely. (3) Atrial fibrillation: Code(s): I48.91 - Unspecified atrial fibrillation Status: Acute Assessment and Plan: Patient with chronic AFib. Rate controlled. Continue Amio, metoprolol with parameters and Digoxin. Dig level 1.5. Eliquis was on hold for debridement but now resumed. (4) Type 2 diabetes mellitus: Code(s): E11.9 - Type 2 diabetes mellitus without complications Status: Acute Assessment and Plan: A1c 7.3. The patient's blood glucose was reviewed on 04/16 Glucose mildly elevated but improved Continue AccuCheks covering with sliding scale. Hypoglycemia protocol available as needed. Diabetic diet. Continue to monitor (5) Severe malnutrition: Code(s): E43 - Unspecified severe protein-calorie malnutrition Status: Acute Assessment and Plan: Patient with severe malnutrition related to inadequate protein energy intake with increased protein energy needs in the setting of chronic disease with diabetes and stage IV sacral decubitus ulcer as evidenced by severe muscle loss noted in the following areas: Temporalis and clavicular region as well as weight loss of 24 lb prior to admission. Supplements added. Subjective Date/time seen: 04/16/23 07:50 Interval history: 73yo male with hx of DVT, DM, HTN and pAFib here for worsening sacral decubitus ulcer. Slept okay. No CP or SOB. poor appetite. Exam Narrative: AF 98.5 99/45 66 18 98% ra Gen - NARD Chest - CTA bilaterally, nml RR CV - irregularly irregular Abd - soft, NT/ND. flank edema Ext - Wenceslao hose in place. periankle edema. Psych - Nml mood and affect Skin - Warm and dry Objective Data Vital Signs Vital Signs: Vital Signs - 24 hr 04/15/23 08:00 04/15/23 08:00 04/15/23 08:59 Temperature 98.5 F 99.3 F Pulse Rate 96 78 64 Respiratory Rate 24 H 16 Blood Pressure 100/49 L 110/52 L Pulse Oximetry 97 98 Oxygen Delivery Room Air Oxygen Flow Rate 04/15/23 11:53 04/15/23 12:05 04/15/23 12:20 Temperature 97.9 F Pulse Rate 92 82 90 Respiratory Rate 20 22 H 20 Blood Pressure 120/66 99/65 L 90/55 L Pulse Oximetry 100 100 100 Oxygen Delivery Simple Face Mask Simple Face Mask Room Air Oxygen Flow Rate 6 6 04/15/23 12:35 04/15/23 12:50 04/15/23 12:00 Temperature 97.4 F L Pulse Rate 81 83 83 Respiratory Rate 20 22 H 24 H Blood Pressure 103/54 L 85/56 L 96/38 L Pulse Oximetry 98 99 99 Oxygen Delivery Room Air Room Air Oxygen Flow Rate 04/15/23 16:00 04/15/23 17:55 04/15/23 18:03 Temperature 97.6 F 97.8 F Pulse Rate 73 70 Respiratory Rate 16 16 Blood Pressure 91/45 L 87/38 L Pulse Oximetry 100 99 Oxygen Delivery Room Air Oxygen Flow Rate 04/15/23 19:29 04/16/23 00:00 04/16/23 04:00 Temperature 98.2 F 97.8 F 98.5 F Pulse Rate 52 L 83 66 R
[2023-04-16 08:29] LABS: Glucose Point of Care 133 mg/dl (65-105)
[2023-04-16] MEDS: SALINE LOCK FLUSH 10 ML IV PUSH ×3 (08:41→20:15)
[2023-04-16] MEDS: AMIODARONE HCL 200 MG TABLET PO (08:46)
[2023-04-16] MEDS: ASPIRIN 81 MG CHEWABLE TABLET PO (08:46)
[2023-04-16] MEDS: metFORMIN HCL XR 500 MG TAB.SR.24H 2000 MG PO (08:46)
[2023-04-16] MEDS: EMPAGLIFLOZIN 25 MG TABLET PO (08:47)
[2023-04-16] MEDS: FINASTERIDE 5 MG TABLET PO (08:47)
[2023-04-16] MEDS: APIXABAN 5 MG TABLET PO ×2 (08:47→17:37)
[2023-04-16] MEDS: DIGOXIN 250 MCG TABLET PO (08:47)
[2023-04-16] MEDS: MIDODRINE HCL 10 MG TABLET PO ×4 (08:48→22:03)
[2023-04-16] MEDS: MONTELUKAST SODIUM 10 MG TABLET PO (08:49)
[2023-04-16] MEDS: oxyBUTYnin CHLORIDE 5 MG TABLET PO ×2 (08:51→17:37)
[2023-04-16] MEDS: PANTOPRAZOLE 40 MG TABLET PO ×2 (08:52→17:38)
[2023-04-16] MEDS: PRAVASTATIN SODIUM 20 MG TABLET 40 MG PO (08:52)
[2023-04-16] MEDS: PREGABALIN (*CRX) 75 MG CAPSULE 150 MG PO (08:52)
[2023-04-16] MEDS: TAMSULOSIN HCL 0.4 MG CAPSULE PO (08:53)
[2023-04-16] MEDS: OMEGA 3 POLYUNSAT FATTY ACIDS 1 GM CAP 4 GM PO (08:56)
--- NOTE | 2023-04-16 11:12 | PCOTNOTE ---
Attempted to see patient for OT evaluation. In discussing with the patient's RN and charge nurse, patient has a wound vac on his buttocks and mobilizing the patient out of bed is not indicated at this time. Will continue to follow.
--- NOTE | 2023-04-16 11:39 | PCPTNOTE ---
In discussing with the Occupational therapist and patient's RN and charge nurse, patient has a wound vac on his buttocks and mobilizing the patient out of bed is not indicated at this time. Will continue to follow.
[2023-04-16 12:09] LABS: Glucose Point of Care 191 mg/dl (65-105)
[2023-04-16] MEDS: polyethylene glycoL 3350 17 GM POWD.PACK PO (12:44)
[2023-04-16] MEDS: TOLNAFTATE 1% POWDER 45 GM BTL 1 APPLIC TOPICAL ×2 (13:30→20:17)
[2023-04-16 16:58] LABS: Glucose Point of Care 144 mg/dl (65-105)
[2023-04-16] MEDS: METOPROLOL TARTRATE 50 MG TAB PO (17:37)
[2023-04-16] MEDS: SODIUM CHLORIDE 0.9% IV 1,000 ML 999 ML IV CONT (20:14)
[2023-04-16] MEDS: ACETAMINOPHEN 325 MG TABLET 650 MG PO (20:15)
[2023-04-16 20:36] LABS: Glucose Point of Care 188 mg/dl (65-105)
[2023-04-16] MEDS: SODIUM CHLORIDE 0.9% IV 1,000 ML 75 ML IV CONT (22:52)
[2023-04-17] VITALS (9 sets, daily range): BP systolic 90–110; BP diastolic 38–55; PULSE 62–84; RESP 16–20; TEMP 36–37.2; O2SAT 98–100; BMI 22.4
[2023-04-17] MEDS: PIPERACILLN/TAZ 3.375GM/NS50ML 3.375 GM/50 ML BAG IVPB ×5 (00:51→23:47)
[2023-04-17] MEDS: SALINE LOCK FLUSH 10 ML IV PUSH ×2 (05:38→23:47)
[2023-04-17] MEDS: oxyCODONE/ACETAMINOPHEN (*CRX) 5-325 MG TABLET 1 TABLET PO ×2 (05:49→17:13)
[2023-04-17 05:50] LABS: Hematocrit 28.6 % (42.0-52.0); Hemoglobin 8.3 g/dL (14.0-18.0); Mean Corpuscular Hemoglobin 25.1 pg (26-34); Mean Corpuscular Volume 86.4 fl (80-100); Mean Platelet Volume 9.9 fl (7.4-10.4); Platelet Count Result 329 k/mm3 (150-375); Red Blood Count 3.31 M/mm3 (4.6-6.20); Red Cell Distribution Width 17.8 % (11.5-14.5); White Blood Count 7.1 K/mm3 (4.5-10.0)
[2023-04-17 06:04] LABS: Anion Gap 5 mmol/L (8-16); Blood Urea Nitrogen 20 mg/dL (9-20); Carbon Dioxide 21 mmol/L (22-30); Chloride 110 mmol/L (98-107); Estimated CRCL calculation 105 ml/min; Estimated Glomerular Filt Rate > 60; Glucose 146 mg/dL (65-110); Potassium 3.8 mmol/L (3.4-5.0); Sodium 136 mmol/L (137-145)
[2023-04-17 08:32] LABS: Glucose Point of Care 153 mg/dl (65-105)
[2023-04-17] MEDS: AMIODARONE HCL 200 MG TABLET PO (09:09)
[2023-04-17] MEDS: DIGOXIN 250 MCG TABLET PO (09:10)
[2023-04-17] MEDS: APIXABAN 5 MG TABLET PO ×2 (09:10→17:13)
[2023-04-17] MEDS: ASPIRIN 81 MG CHEWABLE TABLET PO (09:10)
[2023-04-17] MEDS: metFORMIN HCL XR 500 MG TAB.SR.24H 2000 MG PO (09:10)
[2023-04-17] MEDS: EMPAGLIFLOZIN 25 MG TABLET PO (09:11)
[2023-04-17] MEDS: FINASTERIDE 5 MG TABLET PO (09:11)
[2023-04-17] MEDS: PRAVASTATIN SODIUM 20 MG TABLET 40 MG PO (09:11)
[2023-04-17] MEDS: PREGABALIN (*CRX) 75 MG CAPSULE 150 MG PO (09:11)
[2023-04-17] MEDS: MONTELUKAST SODIUM 10 MG TABLET PO (09:12)
[2023-04-17] MEDS: MIDODRINE HCL 10 MG TABLET PO ×3 (09:12→17:13)
[2023-04-17] MEDS: PANTOPRAZOLE 40 MG TABLET PO ×2 (09:12→17:13)
[2023-04-17] MEDS: oxyBUTYnin CHLORIDE 5 MG TABLET PO (09:12)
[2023-04-17] MEDS: TAMSULOSIN HCL 0.4 MG CAPSULE PO (09:12)
[2023-04-17] MEDS: OMEGA 3 POLYUNSAT FATTY ACIDS 1 GM CAP 4 GM PO (09:13)
[2023-04-17 11:03] LABS: Vitamin D 25 Hydroxy < 12.8 ng/mL
--- NOTE | 2023-04-17 11:05 | PM.IMPN ---
Progress Note: A&P Assessment and Plan (1) Sacral decubitus ulcer: Qualifiers: Pressure injury stage: unspecified pressure injury stage Qualified Code(s): L89.159 - Pressure ulcer of sacral region, unspecified stage Code(s): L89.159 - Pressure ulcer of sacral region, unspecified stage Status: Acute Assessment and Plan: The patient was a direct admit from [facility] for evaluation and treatment of worsening sacral decubitus ulcer. WBC normal and no fevers. Gen Surg consulted and felt the wound looked improved overall but did recommend debridement of a small area. Debridement performed on 04/15. Continue local wound care and topical debridement. BCx NGTD. Continue Zosyn. Discharge planning per GenSurg (2) Hypotension: Code(s): I95.9 - Hypotension, unspecified Status: Acute Assessment and Plan: Patient has low blood pressure felt related to above but may be chronic or acute/chronic. Has low albumin which contributes to his HoTN. Encouraged oral intake. Supplements added. On midodrine chronically. Being treated with IV fluids off and on. Continue metoprolol with parameters. Monitor closely. (3) Atrial fibrillation: Code(s): I48.91 - Unspecified atrial fibrillation Status: Acute Assessment and Plan: Patient with chronic AFib. Rate controlled. Continue Amio, metoprolol with parameters and Digoxin. Dig level 1.5. Eliquis was on hold for debridement but now resumed. (4) Type 2 diabetes mellitus: Code(s): E11.9 - Type 2 diabetes mellitus without complications Status: Acute Assessment and Plan: A1c 7.3. The patient's blood glucose was reviewed on 04/17 Glucose better controlled Continue AccuCheks covering with sliding scale. Hypoglycemia protocol available as needed. Diabetic diet. Continue to monitor (5) Severe malnutrition: Code(s): E43 - Unspecified severe protein-calorie malnutrition Status: Acute Assessment and Plan: Patient with severe malnutrition related to inadequate protein energy intake with increased protein energy needs in the setting of chronic disease with diabetes and stage IV sacral decubitus ulcer as evidenced by severe muscle loss noted in the following areas: Temporalis and clavicular region as well as weight loss of 24 lb prior to admission. Supplements added. Vit D very low despite being on replacement. Consider malabsorption. Check other Vitamin levels. Advance VitD dosing. CT February showing atrophic pancreas. Abd MRI Mar 2022 showing chronic pancreatitis. Add Creon. Stop oxybutynin Subjective Date/time seen: 04/17/23 11:05 Interval history: 73yo male with hx of DVT, DM, HTN and pAFib here for worsening sacral decubitus ulcer. Blood pressure dropped to 81/34 (90/38 manually) overnight. Received 1L bolus of normal saline and started on maintenance fluids. Blood pressure has improved. He is feeling well. He denies any chest pain or shortness of breath. He slept well. His sacral pain is tolerable. Exam Narrative: AF 98.9 100/40 77 18 100% ra Gen - NARD Chest - Clear anteriorly and in the flanks. nml RR CV - irregularly irregular Abd - soft, NT/ND. flank edema - Whyte secured draining clear yellow urine Ext - Wenceslao hose in place. trace periankle edema. Psych - Nml mood and affect Skin - Warm and dry Objective Data Vital Signs Vital Signs: Vital Signs - 24 hr 04/16/23 12:00 04/16/23 16:00 04/16/23 17:36 Temperature 96.9 F L 97.5 F L Pulse Rate 86 64 97 Respiratory Rate 18 16 Blood Pressure 104/53 L 103/45 L 107/57 L Pulse Oximetry 100 99 Oxygen Delivery 04/16/23 17:37 04/16/23 19:48 04/16/23 20:00 Temperature 97 F L Pulse Rate 87 61 Respiratory Rate 15 Blood Pressure 90/38 L Pulse Oximetry 99 Oxygen Delivery Room Air 04/16/23 21:44 04/17/23 00:00 04/17/23 04:00 Temperature 97.9 F 98 F Pulse Rate 62 67 Respiratory Rate 16 17 Blood
[2023-04-17 12:08] LABS: Glucose Point of Care 193 mg/dl (65-105)
[2023-04-17] MEDS: ERGOCALCIFEROL 50,000 UNITS CAPSULE 50000 UNITS PO (12:31)
[2023-04-17] MEDS: LIPASE/AMYLASE/PROTEASE 12,000 UNITS CAP 1 CAP PO ×2 (12:31→17:13)
--- NOTE | 2023-04-17 13:16 | PCOTNOTE ---
Attempted OT evaluation. Nursing continue to report not to mobilize patient out of bed at this time. Will continue to attempt.
--- NOTE | 2023-04-17 13:20 | PCPTNOTE ---
Attempted PT evaluation. Nursing continue to report not to mobilize patient out of bed at this time. Will continue to attempt.
[2023-04-17 13:47] LABS: Amylase 33 U/L (30-110); Lipase 22 U/L (23-300)
[2023-04-17] MEDS: SODIUM CHLORIDE 0.9% IV 1,000 ML 50 ML IV CONT (14:05)
[2023-04-17] MEDS: TOLNAFTATE 1% POWDER 45 GM BTL 1 APPLIC TOPICAL ×2 (14:06→20:14)
[2023-04-17 17:15] LABS: Glucose Point of Care 181 mg/dl (65-105)
[2023-04-17 21:26] LABS: Glucose Point of Care 179 mg/dl (65-105)
[2023-04-18] VITALS (9 sets, daily range): BP systolic 92–130; BP diastolic 33–54; PULSE 66–117; RESP 17–20; TEMP 35.8–36.9; O2SAT 97–99
[2023-04-18] MEDS: PIPERACILLN/TAZ 3.375GM/NS50ML 3.375 GM/50 ML BAG IVPB ×3 (05:25→17:41)
[2023-04-18] MEDS: SALINE LOCK FLUSH 10 ML IV PUSH ×3 (05:25→21:13)
[2023-04-18 06:35] LABS: Hematocrit 28.9 % (42.0-52.0); Hemoglobin 8.3 g/dL (14.0-18.0); Mean Corpuscular HGB Conc 28.7 g/dl (32-36); Mean Corpuscular Hemoglobin 24.8 pg (26-34); Mean Corpuscular Volume 86.3 fl (80-100); Mean Platelet Volume 10.4 fl (7.4-10.4); Platelet Count Result 316 k/mm3 (150-375); Red Blood Count 3.35 M/mm3 (4.6-6.20); Red Cell Distribution Width 17.5 % (11.5-14.5); White Blood Count 6.1 K/mm3 (4.5-10.0)
[2023-04-18 07:12] LABS: Anion Gap 4 mmol/L (8-16); Blood Urea Nitrogen 14 mg/dL (9-20); Calcium 6.8 mg/dL (8.4-10.2); Carbon Dioxide 22 mmol/L (22-30); Chloride 110 mmol/L (98-107); Estimated CRCL calculation 111 ml/min; Estimated Glomerular Filt Rate > 60; Glucose 169 mg/dL (65-110); Potassium 3.8 mmol/L (3.4-5.0); Sodium 136 mmol/L (137-145)
--- NOTE | 2023-04-18 08:33 | PCPTNOTE ---
Attempted PT evaluation, pt refused stating he was in too much pain. RN aware. Will follow.
--- NOTE | 2023-04-18 08:47 | PCOTNOTE ---
Attempted to see pt. for occupational therapy evaluation. Pt. refuses to participated at this time. Nursing aware. Following.
[2023-04-18] MEDS: ASPIRIN 81 MG CHEWABLE TABLET PO (09:11)
[2023-04-18] MEDS: oxyCODONE/ACETAMINOPHEN (*CRX) 5-325 MG TABLET 1 TABLET PO (09:11)
[2023-04-18] MEDS: AMIODARONE HCL 200 MG TABLET PO (09:12)
[2023-04-18] MEDS: MIDODRINE HCL 10 MG TABLET PO ×3 (09:12→16:43)
[2023-04-18] MEDS: OMEGA 3 POLYUNSAT FATTY ACIDS 1 GM CAP 4 GM PO (09:12)
[2023-04-18] MEDS: PRAVASTATIN SODIUM 20 MG TABLET 40 MG PO (09:12)
[2023-04-18] MEDS: TAMSULOSIN HCL 0.4 MG CAPSULE PO (09:12)
[2023-04-18] MEDS: DIGOXIN 250 MCG TABLET PO (09:12)
[2023-04-18] MEDS: PREGABALIN (*CRX) 75 MG CAPSULE 150 MG PO (09:13)
[2023-04-18] MEDS: MONTELUKAST SODIUM 10 MG TABLET PO (09:13)
[2023-04-18] MEDS: metFORMIN HCL XR 500 MG TAB.SR.24H 2000 MG PO (09:13)
[2023-04-18] MEDS: PANTOPRAZOLE 40 MG TABLET PO ×2 (09:13→16:43)
[2023-04-18] MEDS: FINASTERIDE 5 MG TABLET PO (09:13)
[2023-04-18] MEDS: LIPASE/AMYLASE/PROTEASE 12,000 UNITS CAP 1 CAP PO ×3 (09:13→16:42)
[2023-04-18] MEDS: EMPAGLIFLOZIN 25 MG TABLET PO (09:13)
[2023-04-18] MEDS: ERGOCALCIFEROL 50,000 UNITS CAPSULE 50000 UNITS PO (09:13)
[2023-04-18] MEDS: APIXABAN 5 MG TABLET PO ×2 (09:14→16:42)
[2023-04-18] MEDS: METOPROLOL TARTRATE 50 MG TAB PO (09:14)
[2023-04-18] MEDS: TOLNAFTATE 1% POWDER 45 GM BTL 1 APPLIC TOPICAL ×2 (09:15→21:13)
--- NOTE | 2023-04-18 11:22 | PM.IMPN ---
Progress Note: A&P Assessment and Plan (1) Sacral decubitus ulcer: Qualifiers: Pressure injury stage: unspecified pressure injury stage Qualified Code(s): L89.159 - Pressure ulcer of sacral region, unspecified stage Code(s): L89.159 - Pressure ulcer of sacral region, unspecified stage Status: Acute Assessment and Plan: The patient was a direct admit from [facility] for evaluation and treatment of worsening sacral decubitus ulcer. WBC normal and no fevers. Gen Surg consulted and felt the wound looked improved overall but did recommend debridement of a small area. Debridement performed on 04/15. Continue local wound care and topical debridement. BCx NGTD. Continue Zosyn. Discharge planning in process. Discharge when okay with GenSurg. Narrow abx? (2) Hypotension: Code(s): I95.9 - Hypotension, unspecified Status: Acute Assessment and Plan: Patient has low blood pressure felt related to above but may be chronic or acute/chronic. Has low albumin which contributes to his HoTN. Encouraged oral intake. Supplements added. On midodrine chronically. Being treated with IV fluids currently. Continue metoprolol with parameters. Monitor closely. Wean off IV fluids (3) Atrial fibrillation: Code(s): I48.91 - Unspecified atrial fibrillation Status: Acute Assessment and Plan: Patient with chronic AFib. Rate controlled. Continue Amio, digoxin, and metoprolol with parameters. Dig level 1.5. Eliquis was on hold for debridement but since resumed. (4) Type 2 diabetes mellitus: Code(s): E11.9 - Type 2 diabetes mellitus without complications Status: Acute Assessment and Plan: A1c 7.3. The patient's blood glucose was reviewed on 04/18 Glucose better controlled Continue AccuCheks covering with sliding scale. Hypoglycemia protocol available as needed. Diabetic diet. Continue to monitor (5) Severe malnutrition: Code(s): E43 - Unspecified severe protein-calorie malnutrition Status: Acute Assessment and Plan: Patient with severe malnutrition related to inadequate protein energy intake with increased protein energy needs in the setting of chronic disease with diabetes and stage IV sacral decubitus ulcer as evidenced by severe muscle loss noted in the following areas: Temporalis and clavicular region as well as weight loss of 24 lb prior to admission. Supplements added. Vit D very low despite being on replacement. Consider malabsorption. Check other Vitamin levels. Advance VitD dosing. CT February showing atrophic pancreas. Abd MRI Mar 2022 showing chronic pancreatitis. Continue Creon. Subjective Date/time seen: 04/18/23 11:22 Interval history: 73yo male with hx of DVT, DM, HTN and pAFib here for worsening sacral decubitus ulcer. Complains of sacral pain but controlled. No CP or SOB. Exam Narrative: AF 98.4 107/54 84 17 98% ra Gen - NARD Chest - bibasilar crackles, nml RR CV - irregularly irregular Abd - soft, NT/ND. flank edema Back - sacral wound vac placed - Whyte secured draining clear yellow urine Ext - Wenceslao hose in place. trace periankle edema. Psych - Nml mood and affect Skin - Warm and dry Objective Data Vital Signs Vital Signs: Vital Signs - 24 hr 04/17/23 14:14 04/17/23 18:03 04/17/23 20:00 Temperature 98.6 F 96.8 F L Pulse Rate 65 73 Respiratory Rate 18 20 Blood Pressure 100/50 L 90/40 L 91/41 L Pulse Oximetry 99 99 Oxygen Delivery 04/17/23 20:00 04/18/23 00:00 04/18/23 04:00 Temperature 97.9 F 98.2 F Pulse Rate 87 117 H Respiratory Rate 18 18 Blood Pressure 95/47 L 92/41 L Pulse Oximetry 97 98 Oxygen Delivery Room Air 04/18/23 07:33 04/18/23 09:12 04/18/23 09:00 Temperature 98.4 F Pulse Rate 70 84 Respiratory Rate 17 Blood Pressure 96/38 L 107/54 L Pulse Oximetry 98 Oxygen Delivery Intake/Output Intake/Output: Intake & Output 04/15/23 04/16/2304/17
--- NOTE | 2023-04-18 14:33 | PCPTNOTE ---
Attempted PT evaluation, pt refused once again due to pain. Will follow.
--- NOTE | 2023-04-18 14:44 | PCOTNOTE ---
Attempted OT evaluation. Pt. refused to participate on this day.
--- NOTE | 2023-04-18 15:13 | PC.NURSE ---
Reviewed assessment placed by Gi Purvis Student nurse of [facility]. Agree with assessment. Medications passed by Gi under supervision of this resume writer and assigned RN. Reviewed chart with Gi and discussed assessments and any interventions. RN will be given report at end of clinical.
[2023-04-18 17:11] LABS: Glucose Point of Care 150 mg/dl (65-105)
--- NOTE | 2023-04-18 17:14 | PC.NURSE ---
Patients blood glucose is not transmitting to the lab records at 0817 the patient blood glucose was 157 1153 the patient blood glucose was 150 1657 the patients blood glucose was 131
[2023-04-18 21:17] LABS: Glucose Point of Care 175 mg/dl (65-105)
[2023-04-19] VITALS (12 sets, daily range): BP systolic 94–164; BP diastolic 34–89; PULSE 45–73; RESP 14–20; TEMP 36–36.6; O2SAT 98–100
[2023-04-19] MEDS: PIPERACILLN/TAZ 3.375GM/NS50ML 3.375 GM/50 ML BAG IVPB ×5 (00:58→23:44)
[2023-04-19] MEDS: SALINE LOCK FLUSH 10 ML IV PUSH ×3 (06:00→21:26)
[2023-04-19 06:31] LABS: Albumin Level 2.1 g/dL (3.5-5.1); Anion Gap 4 mmol/L (8-16); Blood Urea Nitrogen 14 mg/dL (9-20); Calcium 6.8 mg/dL (8.4-10.2); Carbon Dioxide 21 mmol/L (22-30); Chloride 110 mmol/L (98-107); Estimated CRCL calculation 99 ml/min; Estimated Glomerular Filt Rate > 60; Glucose 152 mg/dL (65-110); Phosphorus 3.1 mg/dL (2.5-4.5); Potassium 3.9 mmol/L (3.4-5.0); Sodium 135 mmol/L (137-145)
[2023-04-19 08:33] LABS: Glucose Point of Care 154 mg/dl (65-105)
--- NOTE | 2023-04-19 08:36 | PCOTNOTE ---
Spoke with nurse, who states that pt. has not yet received pain medications. Per request yesterday, pt. did not want to be seen until after getting pain medications today. Nursing aware. Following
[2023-04-19] MEDS: DIGOXIN 250 MCG TABLET PO (09:41)
[2023-04-19] MEDS: ASPIRIN 81 MG CHEWABLE TABLET PO (09:42)
[2023-04-19] MEDS: LIPASE/AMYLASE/PROTEASE 12,000 UNITS CAP 1 CAP PO ×3 (09:42→17:08)
[2023-04-19] MEDS: metFORMIN HCL XR 500 MG TAB.SR.24H 2000 MG PO (09:42)
[2023-04-19] MEDS: PREGABALIN (*CRX) 75 MG CAPSULE 150 MG PO (09:42)
[2023-04-19] MEDS: PANTOPRAZOLE 40 MG TABLET PO ×2 (09:43→17:09)
[2023-04-19] MEDS: METOPROLOL TARTRATE 50 MG TAB PO (09:43)
[2023-04-19] MEDS: PRAVASTATIN SODIUM 20 MG TABLET 40 MG PO (09:44)
[2023-04-19] MEDS: AMIODARONE HCL 200 MG TABLET PO (09:44)
[2023-04-19] MEDS: EMPAGLIFLOZIN 25 MG TABLET PO (09:44)
[2023-04-19] MEDS: FINASTERIDE 5 MG TABLET PO (09:45)
[2023-04-19] MEDS: TAMSULOSIN HCL 0.4 MG CAPSULE PO (09:45)
[2023-04-19] MEDS: MONTELUKAST SODIUM 10 MG TABLET PO (09:45)
[2023-04-19] MEDS: MIDODRINE HCL 10 MG TABLET PO ×3 (09:45→17:08)
[2023-04-19] MEDS: ERGOCALCIFEROL 50,000 UNITS CAPSULE 50000 UNITS PO (09:46)
[2023-04-19] MEDS: OMEGA 3 POLYUNSAT FATTY ACIDS 1 GM CAP 4 GM PO (09:46)
[2023-04-19] MEDS: APIXABAN 5 MG TABLET PO ×2 (09:46→17:09)
[2023-04-19] MEDS: oxyCODONE/ACETAMINOPHEN (*CRX) 5-325 MG TABLET 1 TABLET PO (09:49)
[2023-04-19] MEDS: MUPIROCIN 2% OINT 22 GM TUBE 1 APPLIC TOPICAL (09:49)
[2023-04-19] MEDS: TOLNAFTATE 1% POWDER 45 GM BTL 1 APPLIC TOPICAL ×2 (09:50→21:26)
--- NOTE | 2023-04-19 09:56 | PM.PNGS ---
Progress Note: A&P Assessment and Plan (1) Decubitus ulcer: Code(s): L89.90 - Pressure ulcer of unspecified site, unspecified stage Status: Acute Assessment and Plan: Continue supportive management for now and application of the wound VAC. He will require continued inpatient hospitalization for now for wound care management and IV antibiotics. I would in vision probably application of another allograft and application of wound VAC at the end of this week after taking the wound VAC off in 2 days. He is very deconditioned and although he would certainly benefit from inpatient acute rehab which is where he was transferred from for debridement of the wound again I would recommend eventual discharge to a specialized wound care facility in [place] and possible so that he can get more specialized an intensive wound care therapy as well as acute rehab therapy. Subjective Subjective Date/Time Seen: 04/19/23 09:56 Interval history: Patient continues to be clinically stable. He continues to have a wound VAC on the allograft on the sacral decubitus ulcer. That wound VAC needs to stay on until at least this coming . We then reassess the wound and decide if he would benefit from another application of allograft to promote wound healing. He is eating well and the wound VAC has kept it seal. He has continued to have bowel movements. PT and OT are working with him. Exam Skin: Other: Wound VAC in place on sacral decubitus wound.. Good seal with the wound VAC. drainage is old bloody serous. No spreading cellulitis or redness. Objective Data Vital Signs Vital Signs: Vital Signs - 24 hr 04/18/23 12:00 04/18/23 16:30 04/18/23 19:29 Temperature 35.8 C L 36.3 C L 36.2 C L Pulse Rate 66 66 74 Respiratory Rate 18 20 18 Blood Pressure 97/43 L 96/46 L 103/33 L Pulse Oximetry 99 98 98 Oxygen Delivery 04/18/23 20:00 04/19/23 00:00 04/19/23 04:00 Temperature 36.4 C 36.5 C Pulse Rate 47 L 73 Respiratory Rate 18 18 Blood Pressure 97/34 L 164/89 H Pulse Oximetry 100 98 Oxygen Delivery Room Air 04/18/23 21:00 04/19/23 09:29 04/19/23 09:41 Temperature Pulse Rate 58 L 58 L Respiratory Rate Blood Pressure 130/45 L 104/42 L Pulse Oximetry Oxygen Delivery 04/19/23 09:43 04/19/23 09:44 Temperature Pulse Rate 58 L 58 L Respiratory Rate Blood Pressure Pulse Oximetry Oxygen Delivery Intake/Output Intake/Output: Intake & Output 04/16/23 04/17/23 04/18/23 04/19/23 23:59 23:59 23:59 23:59 Intake Total 2080 2460 1400 1080 Output Total 4500 1650 1800 1200 Balance -2420 810 -400 -120 Meds/Results Medications: Active Medications Generic Name Dose Route Start Last Admin Trade Name Freq PRN Reason Stop Dose Admin Acetaminophen 650 mg 04/13/23 21:22 04/16/23 20:15 Acetaminophen 325 Mg Tablet PO 650 mg Q6H PRN Administration Mild Pain (1-3) Or Fever Amiodarone HCl 200 mg 04/14/23 08:00 04/19/23 09:44 Amiodarone Hcl 200 Mg Tablet PO 200 mg DAILY@0800 YESSICA Administration Lipase/Protease/Amylase 1 cap 04/17/23 12:00 04/19/23 09:42 Lipase/Amylase/Protease 12,000 Units Cap PO 1 cap TIDWM YESSICA Administration Apixaban 5 mg 04/15/23 17:00 04/19/23 09:46 Apixaban 5 Mg Tablet PO 5 mg BID YESSICA Administration Aspirin 81 mg 04/14/23 08:00 04/19/23 09:42 Aspirin 81 Mg Chewable Tablet PO 81 mg DAILY@0800 YESSICA Administration Bisacodyl 5 mg 04/13/23 21:22 Bisacodyl 5 Mg Tablet Ec PO QAM PRN Constipation Dextrose 12.5 gm 04/13/23 15:33 Dextrose 50% 25 Gm/50 Ml Syringe IV PUSH PRN PRN Hypoglycemia Protocol Digoxin 250 mcg 04/14/23 09:00 04/19/23 09:41 Digoxin 250 Mcg Tablet PO 250 mcg QAM YESSICA Administration Empagliflozin 25 mg 04/14/23 09:00 04/19/23 09:44 Empagliflozin 25 Mg Tablet PO 25 mg DAILY YESSICA Administration Ergocalciferol 50,0
--- NOTE | 2023-04-19 11:27 | PCNFU ---
Nutrition Follow-Up Complete: Severe malnutrition related to inadequate protein-energy intake with increased protein-energy needs in setting of chronic disease or condition (stage IV sacral decubitus ulcer/diabetes) as evidenced by severe muscle loss noted in the following areas: temporalis/clavicle region and weight loss of 24 lbs (12%) PATIENT INSURANCE CLERK per patient reported UBW (200 lbs). Goal: 1. Patient will consume at least 75% of 2-3 meals and supplements daily. 2. Patient weight will remain at or above current weight of 80.4 kg through follow-up. Pt current nutrition is DBCC. Last recorded weight is 84 kg,up from 80.4 kg on admit. Bowel Motility:+Bm reported 04/17 Labs Reviewed:Glu 152, Na 135, Alb 2.1 Meds Noted:Januvia, Glucophage, Lopressor Skin: Stage IV-sacrum. Wound vac in place. Additional Notes: Patient remains on DBCC diet. Tolerating diet, 75-100% of meals. Drinking diet supplements of Glucerna shake BID (220 kcals/10 gms protein) and Reinier BID (90 kcals/2.5 gms protein). Agree with diet orders. Will monitor PO intake, labs, weight and wound status every 7 days.
[2023-04-19 12:23] LABS: Glucose Point of Care 178 mg/dl (65-105)
[2023-04-19 12:49] LABS: Glucose Point of Care 131 mg/dl (65-105)
[2023-04-19 14:14] LABS: Glucose Point of Care 157 mg/dl (65-105)
--- NOTE | 2023-04-19 16:59 | PM.IMPN ---
Progress Note: A&P Assessment and Plan (1) Sacral decubitus ulcer: Qualifiers: Pressure injury stage: unspecified pressure injury stage Qualified Code(s): L89.159 - Pressure ulcer of sacral region, unspecified stage Code(s): L89.159 - Pressure ulcer of sacral region, unspecified stage Status: Acute Assessment and Plan: The patient was a direct admit from [facility] for evaluation and treatment of worsening sacral decubitus ulcer. WBC normal and no fevers but was on IV abx on admission. Gen Surg consulted and felt the wound looked improved overall but did recommend debridement of a small area. Debridement performed on 04/15. BCx NGTD. Continue wound vac. Continue Zosyn. Discharge planning in process. Discharge when okay with GenSurg. (2) Hypotension: Code(s): I95.9 - Hypotension, unspecified Status: Acute Assessment and Plan: Patient has low blood pressure felt related to above but may be chronic or acute/chronic. Has low albumin which contributes to his HoTN. Encouraged oral intake. Supplements added. On midodrine chronically. Was treated with IV fluids but off now. Continue metoprolol with parameters. Monitor closely. Give albumin. Consider Lasix if BP allows (3) Atrial fibrillation: Code(s): I48.91 - Unspecified atrial fibrillation Status: Acute Assessment and Plan: Patient with chronic AFib. Rate controlled. Dig level 1.5. Continue Amio, digoxin, and metoprolol with parameters. Eliquis was resumed after debridement. (4) Type 2 diabetes mellitus: Code(s): E11.9 - Type 2 diabetes mellitus without complications Status: Acute Assessment and Plan: A1c 7.3. The patient's blood glucose was reviewed on 04/19 Glucose better controlled Continue AccuCheks covering with sliding scale. Hypoglycemia protocol available as needed. Diabetic diet. Continue to monitor (5) Severe malnutrition: Code(s): E43 - Unspecified severe protein-calorie malnutrition Status: Acute Assessment and Plan: Patient with severe malnutrition related to inadequate protein energy intake with increased protein energy needs in the setting of chronic disease with diabetes and stage IV sacral decubitus ulcer as evidenced by severe muscle loss noted in the following areas: Temporalis and clavicular region as well as weight loss of 24 lb prior to admission. Supplements added. Vit D very low despite being on replacement. CT February showing atrophic pancreas. Abd MRI Mar 2022 showing chronic pancreatitis. Consider malabsorption. Continue Creon. Subjective Date/time seen: 04/19/23 16:59 Interval history: 73yo male with hx of DVT, DM, HTN and pAFib here for worsening sacral decubitus ulcer. Slept well. No CP or SOB. Was up to the side of the bed today. No n/v. Exam Narrative: AF 97.8 97/44 53 18 99% ra Gen - NARD Chest - clear anteriorly, nml RR CV - irregularly irregular Abd - soft, NT/ND. - Whyte secured draining clear yellow urine Ext - Wenceslao hose in place. trace periankle edema. Psych - Nml mood and affect Skin - Warm and dry Objective Data Vital Signs Vital Signs: Vital Signs - 24 hr 04/18/23 19:29 04/18/23 20:00 04/19/23 00:00 Temperature 97.1 F L 97.6 F Pulse Rate 74 47 L Respiratory Rate 18 18 Blood Pressure 103/33 L 97/34 L Pulse Oximetry 98 100 Oxygen Delivery Room Air 04/19/23 04:00 04/18/23 21:00 04/19/23 09:29 Temperature 97.7 F Pulse Rate 73 58 L Respiratory Rate 18 Blood Pressure 164/89 H 130/45 L 104/42 L Pulse Oximetry 98 Oxygen Delivery 04/19/23 09:41 04/19/23 09:43 04/19/23 09:44 Temperature Pulse Rate 58 L 58 L 58 L Respiratory Rate Blood Pressure Pulse Oximetry Oxygen Delivery 04/19/23 10:08 04/19/23 11:30 04/19/23 09:40 Temperature 97.6 F Pulse Rate 59 L Respiratory Rate 18 Blood Pressure 98/46 L Pulse Oximetry 98 Oxygen Delivery Ro
[2023-04-19 17:23] LABS: Glucose Point of Care 187 mg/dl (65-105)
[2023-04-19] MEDS: ALBUMIN HUMAN 25% 25 GM/100 ML 100 ML IVPB (18:32)
[2023-04-19 20:43] LABS: Glucose Point of Care 212 mg/dl (65-105)
[2023-04-19] MEDS: traMADol HCL (*CRX) 25 MG TABLET PO (21:24)
[2023-04-19] MEDS: INSULIN ASPART (*BKC) 100 UNITS/ML SUB-Q (21:25)
[2023-04-20] VITALS (11 sets, daily range): BP systolic 95–117; BP diastolic 36–51; PULSE 48–67; RESP 16–20; TEMP 36–36.6; O2SAT 82–100
[2023-04-20] MEDS: ALBUMIN HUMAN 25% 25 GM/100 ML 100 ML IVPB ×3 (00:11→14:03)
[2023-04-20] MEDS: PIPERACILLN/TAZ 3.375GM/NS50ML 3.375 GM/50 ML BAG IVPB ×4 (05:07→23:24)
[2023-04-20] MEDS: SALINE LOCK FLUSH 10 ML IV PUSH ×3 (05:07→20:54)
[2023-04-20] MEDS: SALINE LOCK FLUSH 20 ML IV PUSH (05:07)
[2023-04-20 05:13] LABS: Basophils Percent Auto 0.4 % (0.2-1.2); Eosinophils Absolute Auto 0.1 K/mm3 (0-0.3); Eosinophils Percent Auto 1.2 % (0-4.4); Hematocrit 26.9 % (42.0-52.0); Hemoglobin 7.8 g/dL (14.0-18.0); Immature Granulocyte Absolute 0.09 K/mm3 (0.00-0.031); Immature Granulocyte Percent A 1.3 % (0-0.5); Lymphocytes Absolute Auto 1.72 K/mm3 (0.9-3.2); Lymphocytes Percent Auto 25.6 % (18.3-44.2); Mean Corpuscular Hemoglobin 25.1 pg (26-34); Mean Corpuscular Volume 86.5 fl (80-100); Mean Platelet Volume 9.8 fl (7.4-10.4); Monocytes Absolute Auto 0.4 K/mm3 (0.1-0.6); Neutrophils Absolute Auto 4.4 K/mm3 (1.3-6.7); Neutrophils Percent Auto 65.5 % (45.5-73.1); Platelet Count Result 286 k/mm3 (150-375); Red Blood Count 3.11 M/mm3 (4.6-6.20); Red Cell Distribution Width 18.2 % (11.5-14.5); White Blood Count 6.7 K/mm3 (4.5-10.0)
[2023-04-20 05:19] LABS: Alanine Aminotransferase 14 U/L (6-50); Albumin Level 2.4 g/dL (3.5-5.1); Alkaline Phosphatase 117 U/L (38-126); Anion Gap 4 mmol/L (8-16); Aspartate Amino Transferase 19 U/L (17-59); Bilirubin,Total 0.2 mg/dL (0.2-1.3); Blood Urea Nitrogen 12 mg/dL (9-20); Calcium 7.1 mg/dL (8.4-10.2); Carbon Dioxide 23 mmol/L (22-30); Chloride 108 mmol/L (98-107); Estimated CRCL calculation 113 ml/min; Estimated Glomerular Filt Rate > 60; Glucose 154 mg/dL (65-110); Potassium 4.2 mmol/L (3.4-5.0); Sodium 135 mmol/L (137-145)
[2023-04-20] MEDS: oxyCODONE/ACETAMINOPHEN (*CRX) 5-325 MG TABLET 1 TABLET PO ×2 (05:32→22:41)
[2023-04-20 05:41] LABS: Hypochromasia 1+ (NORMAL); Platelet Estimate Adequate (Adequate)
[2023-04-20 05:42] LABS: Anisocytosis 1+ (NORMAL); Schistocytes None Seen (NORMAL)
[2023-04-20 08:13] LABS: Glucose Point of Care 147 mg/dl (65-105)
[2023-04-20] MEDS: ONDANSETRON INJ 4 MG/2 ML VIAL IV PUSH (09:58)
[2023-04-20 10:23] LABS: Appearance Urine Turbid (Clear); Bacteria Urine Rare /hpf; Bilirubin Urine Negative (Negative); Blood Urine 3+ (Negative); Color Urine Yellow (Yellow); Glucose Urine UA 2+ mg/dL (Negative); Ketones Urine Negative (Negative); Leukocyte Esterase Ur 3+ LEU/UL (Negative); Need Manual Microscopic Reviewed; Nitrate Urine Negative (Negative); Protein Urine 2+ mg/dL (Negative); RBC Urine 51-100 /hpf (0-2); Specific Grav Ur 1.021 (1.001-1.035); Squamous Epithelial Cell Urine Many /hpf (Few); Urobilinogen Urine 0.2 mg/dL (<2.0); WBC Urine >100 /hpf; pH Urine 5.5 (5.0-9.0)
[2023-04-20 10:25] LABS: Add Urine Microscopic? YES
[2023-04-20 11:16] LABS: Digoxin 1.3 ng/mL (0.8-2.0)
[2023-04-20] MEDS: metFORMIN HCL XR 500 MG TAB.SR.24H 2000 MG PO (11:31)
[2023-04-20] MEDS: MIDODRINE HCL 10 MG TABLET PO ×2 (11:32→17:51)
[2023-04-20] MEDS: ASPIRIN 81 MG CHEWABLE TABLET PO (11:32)
[2023-04-20] MEDS: FINASTERIDE 5 MG TABLET PO (11:32)
[2023-04-20] MEDS: APIXABAN 5 MG TABLET PO ×2 (11:32→17:52)
[2023-04-20] MEDS: EMPAGLIFLOZIN 25 MG TABLET PO (11:32)
[2023-04-20] MEDS: MONTELUKAST SODIUM 10 MG TABLET PO (11:32)
[2023-04-20] MEDS: PRAVASTATIN SODIUM 20 MG TABLET 40 MG PO (11:33)
[2023-04-20] MEDS: PANTOPRAZOLE 40 MG TABLET PO ×2 (11:33→17:51)
[2023-04-20] MEDS: TAMSULOSIN HCL 0.4 MG CAPSULE PO (11:33)
[2023-04-20] MEDS: PREGABALIN (*CRX) 75 MG CAPSULE 150 MG PO (11:33)
[2023-04-20] MEDS: OMEGA 3 POLYUNSAT FATTY ACIDS 1 GM CAP 4 GM PO (11:33)
[2023-04-20] MEDS: MUPIROCIN 2% OINT 22 GM TUBE 1 APPLIC TOPICAL (11:34)
[2023-04-20] MEDS: TOLNAFTATE 1% POWDER 45 GM BTL 1 APPLIC TOPICAL ×2 (11:35→20:53)
--- NOTE | 2023-04-20 11:43 | PM.IMPN ---
Progress Note: A&P Assessment and Plan (1) Sacral decubitus ulcer: Qualifiers: Pressure injury stage: unspecified pressure injury stage Qualified Code(s): L89.159 - Pressure ulcer of sacral region, unspecified stage Code(s): L89.159 - Pressure ulcer of sacral region, unspecified stage Status: Acute Assessment and Plan: Cultures noted. Continue IV antibiotics. Wound VAC. plan to change on or Tuesday. (2) Hypotension: Code(s): I95.9 - Hypotension, unspecified Status: Acute Assessment and Plan: Monitor (3) Atrial fibrillation: Code(s): I48.91 - Unspecified atrial fibrillation Status: Acute Assessment and Plan: Patient with chronic AFib. Rate controlled. Mild bradycardia today. Heart rates in the 50s. Will recheck digit level. (4) Type 2 diabetes mellitus: Code(s): E11.9 - Type 2 diabetes mellitus without complications Status: Acute Assessment and Plan: A1c 7.3. The patient's blood glucose was reviewed on 04/19 Glucose better controlled Continue AccuCheks covering with sliding scale. Hypoglycemia protocol available as needed. Diabetic diet. Continue to monitor (5) Severe malnutrition: Code(s): E43 - Unspecified severe protein-calorie malnutrition Status: Acute Assessment and Plan: Patient with severe malnutrition related to inadequate protein energy intake with increased protein energy needs in the setting of chronic disease with diabetes and stage IV sacral decubitus ulcer as evidenced by severe muscle loss noted in the following areas: Temporalis and clavicular region as well as weight loss of 24 lb prior to admission. Supplements added. Vit D very low despite being on replacement. CT February showing atrophic pancreas. Abd MRI Mar 2022 showing chronic pancreatitis. Consider malabsorption. Continue Creon. Subjective Date/time seen: 04/20/23 11:43 Interval history: No New complaints. Exam Narrative: AF 97.8 97/44 53 18 99% ra Gen - NARD Chest - clear anteriorly, nml RR CV - irregularly irregular Abd - soft, NT/ND. - Whyte secured draining clear yellow urine Ext - Wenceslao hose in place. trace periankle edema. Psych - Nml mood and affect Skin - Warm and dry Objective Data Vital Signs Vital Signs: Vital Signs - 24 hr 04/19/23 15:00 04/19/23 17:06 04/19/23 17:58 Temperature 97.8 F Pulse Rate 53 L 45 L 45 L Respiratory Rate 18 Blood Pressure 97/44 L 102/40 L Pulse Oximetry 99 Oxygen Delivery 04/19/23 18:10 04/19/23 20:21 04/20/23 00:20 Temperature 97.8 F 96.8 F L 96.8 F L Pulse Rate 47 L 48 L 48 L Respiratory Rate 14 20 20 Blood Pressure 105/48 L 94/40 L 95/40 L Pulse Oximetry 100 100 98 Oxygen Delivery 04/19/23 21:10 04/20/23 04:48 04/20/23 09:33 Temperature 96.8 F L Pulse Rate 56 L 55 L Respiratory Rate 18 Blood Pressure 106/40 L 101/39 L Pulse Oximetry 98 98 Oxygen Delivery Room Air 04/20/23 10:00 04/20/23 11:28 04/20/23 11:28 Temperature 97.8 F Pulse Rate 67 48 L 48 L Respiratory Rate 16 Blood Pressure 96/36 L Pulse Oximetry 100 Oxygen Delivery Intake/Output Intake/Output: Intake & Output 04/17/23 04/18/23 04/19/23 04/20/23 23:59 23:59 23:59 23:59 Intake Total 2460 1400 3070 660 Output Total 1650 1800 2625 1200 Balance 810 -400 445 -540 Meds/Results Medications: Active Medications Generic Name Dose Route Start Last Admin Trade Name Freq PRN Reason Stop Dose Admin Acetaminophen 650 mg 04/13/23 21:22 04/16/23 20:15 Acetaminophen 325 Mg Tablet PO 650 mg Q6H PRN Administration Mild Pain (1-3) Or Fever Amiodarone HCl 200 mg 04/14/23 08:00 04/20/23 11:28 Amiodarone Hcl 200 Mg Tablet PO Not Given DAILY@0800 [facility] Lipase/Protease/Amylase 1 cap 04/17/23 12:00 04/20/23 11:28 Lipase/Amylase/Protease 12,000 Units Cap PO Not Given TIDWM [facility] Apixaban 5
[2023-04-20 12:08] LABS: Glucose Point of Care 199 mg/dl (65-105)
[2023-04-20] MEDS: LIPASE/AMYLASE/PROTEASE 12,000 UNITS CAP 1 CAP PO ×2 (12:58→17:52)
--- NOTE | 2023-04-20 16:31 | PC.NURSE ---
AM dose of midodrine given late at 1130AM d/t nausea, 1300 dose too close, next dose to be given at 1700
[2023-04-20 17:14] LABS: Glucose Point of Care 149 mg/dl (65-105)
[2023-04-20 20:35] LABS: Glucose Point of Care 163 mg/dl (65-105)
[2023-04-21] VITALS (11 sets, daily range): BP systolic 95–110; BP diastolic 42–52; PULSE 47–54; RESP 16–18; TEMP 36–36.5; O2SAT 95–100
[2023-04-21] MEDS: traMADol HCL (*CRX) 25 MG TABLET PO (01:54)
[2023-04-21] MEDS: SALINE LOCK FLUSH 10 ML IV PUSH ×3 (05:29→20:22)
[2023-04-21] MEDS: PIPERACILLN/TAZ 3.375GM/NS50ML 3.375 GM/50 ML BAG IVPB (05:29)
[2023-04-21] MEDS: AMIODARONE HCL 200 MG TABLET PO (07:55)
[2023-04-21] MEDS: APIXABAN 5 MG TABLET PO (07:56)
[2023-04-21] MEDS: metFORMIN HCL XR 500 MG TAB.SR.24H 2000 MG PO (07:56)
[2023-04-21] MEDS: LIPASE/AMYLASE/PROTEASE 12,000 UNITS CAP 1 CAP PO ×3 (07:56→16:58)
[2023-04-21] MEDS: DIGOXIN 250 MCG TABLET PO (07:56)
[2023-04-21] MEDS: ASPIRIN 81 MG CHEWABLE TABLET PO (07:56)
[2023-04-21] MEDS: MIDODRINE HCL 10 MG TABLET PO ×3 (07:57→16:58)
[2023-04-21] MEDS: MONTELUKAST SODIUM 10 MG TABLET PO (07:57)
[2023-04-21] MEDS: METOPROLOL TARTRATE 50 MG TAB PO ×2 (07:57→16:59)
[2023-04-21] MEDS: MUPIROCIN 2% OINT 22 GM TUBE 1 APPLIC TOPICAL (07:57)
[2023-04-21] MEDS: FINASTERIDE 5 MG TABLET PO (07:57)
[2023-04-21] MEDS: EMPAGLIFLOZIN 25 MG TABLET PO (07:57)
[2023-04-21] MEDS: OMEGA 3 POLYUNSAT FATTY ACIDS 1 GM CAP 4 GM PO (07:57)
[2023-04-21] MEDS: PANTOPRAZOLE 40 MG TABLET PO ×2 (07:58→16:58)
[2023-04-21] MEDS: TAMSULOSIN HCL 0.4 MG CAPSULE PO (07:58)
[2023-04-21] MEDS: TOLNAFTATE 1% POWDER 45 GM BTL 1 APPLIC TOPICAL ×2 (07:58→20:17)
[2023-04-21] MEDS: PREGABALIN (*CRX) 75 MG CAPSULE 150 MG PO (07:58)
[2023-04-21] MEDS: PRAVASTATIN SODIUM 20 MG TABLET 40 MG PO (07:58)
[2023-04-21] MEDS: oxyCODONE/ACETAMINOPHEN (*CRX) 5-325 MG TABLET 1 TABLET PO ×2 (08:02→13:33)
[2023-04-21 08:33] LABS: Glucose Point of Care 154 mg/dl (65-105)
--- NOTE | 2023-04-21 10:44 | PM.IMPN ---
Progress Note: A&P Assessment and Plan (1) Sacral decubitus ulcer: Qualifiers: Pressure injury stage: unspecified pressure injury stage Qualified Code(s): L89.159 - Pressure ulcer of sacral region, unspecified stage Code(s): L89.159 - Pressure ulcer of sacral region, unspecified stage Status: Acute Assessment and Plan: Cultures noted. Continue IV antibiotics. Wound VAC. plan to change on Tuesday. (2) Hypotension: Code(s): I95.9 - Hypotension, unspecified Status: Acute Assessment and Plan: Monitor (3) Atrial fibrillation: Code(s): I48.91 - Unspecified atrial fibrillation Status: Acute Assessment and Plan: Patient with chronic AFib. Rate controlled. Mild bradycardia today. Heart rates in the 50s. Will recheck digit level. (4) Type 2 diabetes mellitus: Code(s): E11.9 - Type 2 diabetes mellitus without complications Status: Acute Assessment and Plan: A1c 7.3. The patient's blood glucose was reviewed on 04/19 Glucose better controlled Continue AccuCheks covering with sliding scale. Hypoglycemia protocol available as needed. Diabetic diet. Continue to monitor (5) Severe malnutrition: Code(s): E43 - Unspecified severe protein-calorie malnutrition Status: Acute Assessment and Plan: Patient with severe malnutrition related to inadequate protein energy intake with increased protein energy needs in the setting of chronic disease with diabetes and stage IV sacral decubitus ulcer as evidenced by severe muscle loss noted in the following areas: Temporalis and clavicular region as well as weight loss of 24 lb prior to admission. Supplements added. Vit D very low despite being on replacement. CT February showing atrophic pancreas. Abd MRI Mar 2022 showing chronic pancreatitis. Consider malabsorption. Continue Creon. Subjective Date/time seen: 04/21/23 10:44 Interval history: No complaints Exam Narrative: AF 97.8 97/44 53 18 99% ra Gen - NARD Chest - clear anteriorly, nml RR CV - irregularly irregular Abd - soft, NT/ND. - Whyte secured draining clear yellow urine Ext - Wenceslao hose in place. trace periankle edema. Psych - Nml mood and affect Skin - Warm and dry Objective Data Vital Signs Vital Signs: Vital Signs - 24 hr 04/20/23 11:28 04/20/23 11:28 04/20/23 14:00 Temperature 97.8 F Pulse Rate 48 L 48 L 61 Respiratory Rate 16 Blood Pressure 117/51 L Pulse Oximetry 100 Oxygen Delivery 04/20/23 17:48 04/20/23 17:50 04/20/23 18:00 Temperature 97.8 F Pulse Rate 51 L 51 L 51 L Respiratory Rate 16 Blood Pressure 108/44 L 98/40 L Pulse Oximetry 82 L Oxygen Delivery 04/20/23 19:56 04/20/23 20:20 04/21/23 00:15 Temperature 96.8 F L 96.9 F L Pulse Rate 48 L 48 L 51 L Respiratory Rate 18 18 18 Blood Pressure 98/41 L 110/52 L Pulse Oximetry 100 100 98 Oxygen Delivery Room Air 04/21/23 05:46 04/21/23 07:55 04/21/23 07:56 Temperature 96.8 F L Pulse Rate 52 L 54 L 54 L Respiratory Rate 16 Blood Pressure 108/48 L Pulse Oximetry 97 Oxygen Delivery 04/21/23 07:57 04/21/23 08:00 Temperature Pulse Rate 54 L Respiratory Rate Blood Pressure Pulse Oximetry 97 Oxygen Delivery Room Air Intake/Output Intake/Output: Intake & Output 04/18/23 04/19/23 04/20/23 04/21/23 23:59 23:59 23:59 23:59 Intake Total 1400 3070 1760 600 Output Total 1800 2625 2600 1600 Balance -400 445 840 -1000 Meds/Results Medications: Active Medications Generic Name Dose Route Start Last Admin Trade Name Freq PRN Reason Stop Dose Admin Acetaminophen 650 mg 04/13/23 21:22 04/16/23 20:15 Acetaminophen 325 Mg Tablet PO 650 mg Q6H PRN Administration Mild Pain (1-3) Or Fever Amiodarone HCl 200 mg 04/14/23 08:00 04/21/23 07:55 Amiodarone Hcl 200 Mg Tablet PO 200 mg DAILY@0800 YESSICA Administration Lipase/Protease/
[2023-04-21] MEDS: ACETAMINOPHEN 325 MG TABLET 650 MG PO ×2 (11:03→18:33)
[2023-04-21 12:02] LABS: Glucose Point of Care 191 mg/dl (65-105)
--- NOTE | 2023-04-21 12:08 | PM.PNGS ---
Progress Note: A&P Assessment and Plan (1) Decubitus ulcer: Code(s): L89.90 - Pressure ulcer of unspecified site, unspecified stage Status: Acute Assessment and Plan: The patient has had improvement of the wound with formation of some granulation tissue at the base after the application of the allograft. We will plan on light debridement of the wound and application of the allograft a wound VAC tomorrow. The wound VAC will have to stay in place for at least the next 5 days after application of the allograft. He will need to continue admission for wound care after tomorrow's procedure as I am concerned that adequate wound care cannot be delivered in the very near term at his care facility. As previously suggested if he is discharged to a specialized wound care facility such as [facility] if that is an option then discharged sooner may be an option. We will keep him NPO after midnight for the procedure 9:00 a.m. tomorrow. Start him on some IV fluids overnight to make sure it does not get dehydrated while he is NPO. Subjective Subjective Date/Time Seen: 04/21/23 12:08 Interval history: Patient has remained clinically stable. He has no subjective complaints. Today is day 6 after debridement of the sacral decubitus wound and application of the allograft and wound VAC. wound VAC was removed today to examine the wound. Exam Skin: Other: Sacral decubitus wound stage IV wound VAC removed at bedside. There is good granulation tissue in the edges of the wound. Small amount of necrotic skin measuring about 2x1cm is noted superiorly. Exposed sacrum appears viable. Graft adherence is good with promotion granulation tissue at the base. Psych: Mental Status: mental status grossly normal Affect: normal affect Objective Data Vital Signs Vital Signs: Vital Signs - 24 hr 04/20/23 14:00 04/20/23 17:48 04/20/23 17:50 Temperature 36.6 C Pulse Rate 61 51 L 51 L Respiratory Rate 16 Blood Pressure 117/51 L 108/44 L Pulse Oximetry 100 Oxygen Delivery 04/20/23 18:00 04/20/23 19:56 04/20/23 20:20 Temperature 36.6 C 36.0 C L Pulse Rate 51 L 48 L 48 L Respiratory Rate 16 18 18 Blood Pressure 98/40 L 98/41 L Pulse Oximetry 82 L 100 100 Oxygen Delivery Room Air 04/21/23 00:15 04/21/23 05:46 04/21/23 07:55 Temperature 36.1 C L 36.0 C L Pulse Rate 51 L 52 L 54 L Respiratory Rate 18 16 Blood Pressure 110/52 L 108/48 L Pulse Oximetry 98 97 Oxygen Delivery 04/21/23 07:56 04/21/23 07:57 04/21/23 08:00 Temperature Pulse Rate 54 L 54 L Respiratory Rate Blood Pressure Pulse Oximetry 97 Oxygen Delivery Room Air Intake/Output Intake/Output: Intake & Output 04/18/23 04/19/23 04/20/23 04/21/23 23:59 23:59 23:59 23:59 Intake Total 1400 3070 1760 600 Output Total 1800 2625 2600 1600 Balance -400 445 -840 -1000 Meds/Results Medications: Active Medications Generic Name Dose Route Start Last Admin Trade Name Freq PRN Reason Stop Dose Admin Acetaminophen 650 mg 04/13/23 21:22 04/21/23 11:03 Acetaminophen 325 Mg Tablet PO 650 mg Q6H PRN Administration Mild Pain (1-3) Or Fever Amiodarone HCl 200 mg 04/14/23 08:00 04/21/23 07:55 Amiodarone Hcl 200 Mg Tablet PO 200 mg DAILY@0800 [facility] Administration Amoxicillin/Clavulanate Potassium 1 tablet 04/21/23 12:00 Amoxicillin/Clavulanate K 875-125 Mg Tab PO 04/29/23 23:59 Q12HR [facility] Lipase/Protease/Amylase 1 cap 04/17/23 12:00 04/21/23 07:56 Lipase/Amylase/Protease 12,000 Units Cap PO 1 cap TIDWM YESSICA Administration Apixaban 5 mg 04/15/23 17:00 04/21/23 07:56 Apixaban 5 Mg Tablet PO 5 mg BID YESSICA Administration Aspirin 81 mg 04/14/23 08:00 04/21/23 07:56 Aspirin 81 Mg Chewable Tablet PO 81 mg DAILY@0800 [facility] Administration Bisacodyl 5 mg 04/13/23 21:22 Bisacodyl 5 Mg Tablet Ec PO QAM PRN Constipation Dextrose 12.5 gm 04/13/23
[2023-04-21] MEDS: AMOXICILLIN/CLAVULANATE K 875-125 MG TAB 1 TABLET PO ×2 (13:33→20:17)
[2023-04-21 17:12] LABS: Glucose Point of Care 146 mg/dl (65-105)
[2023-04-21 23:41] LABS: Fecal Fat, Ql Normal (Normal)
[2023-04-22] VITALS (22 sets, daily range): BP systolic 101–134; BP diastolic 42–55; PULSE 5–63; RESP 18–26; TEMP 36–37; O2SAT 95–100
[2023-04-22] MEDS: SODIUM CHLORIDE 0.9% IV 1,000 ML 60 ML IV CONT ×2 (00:04→14:34)
[2023-04-22 03:08] LABS: Glucose Point of Care 183 mg/dl (65-105)
[2023-04-22] MEDS: SALINE LOCK FLUSH 10 ML IV PUSH ×3 (06:28→21:16)
--- NOTE | 2023-04-22 07:50 | WPDHPUPDATE1 ---
History and Physical Update Update Date/Time: 04/22/23 07:50 History and Physical has been reviewed, including an updated exam of the patient. There are NO changes in the patient's condition. Risks, benefits, and alternatives have been discussed and questions answered. Patient agrees to proceed with procedure.
--- NOTE | 2023-04-22 07:56 | PC.NURSE ---
Patient to Pre-Op at 0708
[2023-04-22] MEDS: LACTATED RINGERS 1,000 ML 30 ML IV CONT (08:00)
[2023-04-22 08:22] LABS: Glucose Point of Care 146 mg/dl (65-105)
--- NOTE | 2023-04-22 08:26 | SUR.PREOP ---
0750-Arrived to Preop per bed, when picked up from upstairs, staff reports bed linens wet from IV fluids and pt refuses to allow staff to change linens.
--- NOTE | 2023-04-22 08:28 | WPDANESEPPF ---
Anes - Initial Pre Proc Eval Procedure: Operation Date: 04/15/23 10:00 Proposed Procedures p Sacral Decubitus Ulcer Debridement with Allograft and Wound Vac Application - Rian Mendoza MD Operation Date: 04/22/23 09:00 Proposed Procedures p Incision and Debridement Sacrum, Placement Allograft, Placement Wound Vac - Rian Mendoza MD Date/Time: 04/22/23 08:28 Surgeon: Vaughn Jarvis MD Pre Op Diagnosis: stage 4 Patient Data Age: 73 Gender: M Height: 1.93 m Weight: 81.5 kg Last Vital Signs Temp 36.0 C L 04/22/23 04:57 Pulse 63 04/22/23 04:57 Resp 18 04/22/23 04:57 BP 102/42 L 04/22/23 04:57 Pulse Ox 100 04/22/23 04:57 O2 Del Method Room Air 04/21/23 20:20 O2 Flow Rate 6 04/15/23 12:05 Allergies Allergy/AdvReac Type Severity Reaction Status Date / Time No Known Allergies Allergy Verified 03/08/23 17:07 Home Medications Medication Instructions Recorded Confirmed Type montelukast 10 mg tablet 10 mg PO DAILY 05/11/21 04/13/23 History tamsulosin 0.4 mg capsule 0.4 mg PO QAM #30 caps 09/03/22 04/13/23 Rx acetaminophen 325 mg tablet (Mapap 650 mg PO Q6H PRN Mild Pain (1-3) 09/17/22 04/13/23 Rx (acetaminophen)) Or Fever #30 tabs apixaban 5 mg tablet (Eliquis) 5 mg PO BID #60 tabs 09/17/22 04/13/23 Rx aspirin 81 mg chewable tablet 81 mg PO DAILY@0800 #30 tabs 09/17/22 04/13/23 Rx (Children's Aspirin) pregabalin 75 mg capsule (Lyrica) 150 mg PO DAILY #30 caps 09/17/22 04/13/23 Rx pravastatin 40 mg tablet 40 mg PO DAILY 09/20/22 04/13/23 History sitagliptin phos 50 mg-metformin 2 tablet PO DAILY 09/20/22 04/13/23 History ER 1,000 mg tablet,extend rel 24h mp (Janumet XR) collagenase clostridium histo. 250 1 applic topical DAILY 03/08/23 04/13/23 History unit/gram topical ointment (Santyl) empagliflozin 25 mg tablet 25 mg PO DAILY 03/08/23 04/13/23 History (Jardiance) metoprolol tartrate 100 mg tablet 100 mg PO BID 03/08/23 04/13/23 History mupirocin 2 % topical ointment 1 applic topical DAILY 03/08/23 04/13/23 History omeprazole 20 mg capsule,delayed 20 mg PO DAILY 03/08/23 04/13/23 History release oxybutynin chloride 5 mg tablet 5 mg PO BID 03/08/23 04/13/23 History ergocalciferol (vitamin D2) 1,250 1,250 mcg PO WEEKLY 03/09/23 04/13/23 History mcg (50,000 unit) capsule icosapent ethyl 1 gram capsule 4 g PO DAILY 03/09/23 04/13/23 History (Vascepa) amiodarone 200 mg tablet (Pacerone) 200 mg PO DAILY@0800 #30 tabs 04/05/23 04/13/23 Rx amoxicillin 500 mg capsule 1,000 mg PO Q8HR #8 caps 04/05/23 04/13/23 Rx bisacodyl 5 mg tablet,delayed 5 mg PO QAM PRN Constipation #30 04/05/23 04/13/23 Rx release (Laxative (bisacodyl)) tabs digoxin 250 mcg (0.25 mg) tablet 250 mcg PO QAM #30 tabs 04/05/23 04/13/23 Rx (Digitek) finasteride 5 mg tablet (Proscar) 5 mg PO QAM #30 tabs 04/05/23 04/13/23 Rx metoprolol succinate 100 mg 200 mg PO QAM #30 tabs 04/05/23 04/13/23 Rx tablet,extended release 24 hr (Toprol XL) midodrine 10 mg tablet 10 mg PO TID #90 tabs 04/05/23 04/13/23 Rx oxycodone-acetaminophen 5 mg-325 1 tablet PO Q6H PRN Pain Rated 4-6 04/05/23 04/13/23 Rx mg tablet #12 tabs pantoprazole 40 mg tablet,delayed 40 mg PO BID #60 tabs 04/05/23 04/13/23 Rx release (Protonix) polyethylene glycol 3350 17 gram 17 g PO QAM PRN constipation #14 ea 04/05/23 04/13/23 Rx oral powder packet (Miralax) tolnaftate 1 % topical powder 1 applic topical Q12HR #45 grams 04/05/23 04/13/23 Rx Laboratory Tests 04/17/23 04/21/23 04/21/23 15:32 08:30 12:00 POC Capillary Glucose 154 H mg/dl 191 H mg/dl (65-105) (65-105) Stool Fat, Qual Normal (Normal) 04/21/23 04/21/23 04/22/23 17:07 19:59 08:20 POC Capillary Glucose 146 H mg/dl 183 H mg/dl 146 H mg/dl (65-105) (65-105) (65-105) Stool Fat, Qual Patient hx anesthesia problems: none Family hx anesthesia problems: none Results Review: All pre-operativ
--- NOTE | 2023-04-22 08:40 | SUR.PREOP ---
0840-Pt allowed upper linen change, clean pad placed under pt's left arm area.
--- NOTE | 2023-04-22 10:09 | W.PM.PROC2 ---
Procedure Note - Detailed Date of Procedure 04/22/23 Pre-op Diagnosis stage 4 sacral decubitus ulcer Post-op Diagnosis Same Procedure Performed Sharp excisional scalpel debridement of skin, subcutaneous tissue, and muscle from stage IV sacral decubitus ulcer, placement of Axial Fill allograft (180 sq cm), and placement of wound VAC (180 sq cm) Surgeon Rian Mendoza MD Anesthesia General Indications Patient has a chronic large stage IV sacral decubitus ulcer. He has undergone multiple procedures for debridement and application of allograft and wound VAC. He presents now for and another interval debridement and placement of allograft and wound VAC. Findings Approximately 75% of the base of the wound has granulation tissue present. The bony sacrum is still exposed. There was small amount of necrotic skin and subcutaneous tissue and muscle which was debrided sharply with scalpel dissection. At the end of the debridement the wound measured 15cm in length by 12cm width by 1.5cm in depth. Allograft placement of 180 sq cm and wound VAC placement of 180 sq cm was performed. Description of Procedure After informed consent was obtained patient brought to the operating room was placed in the supine position the [facility] and then placed under general endotracheal anesthesia. He was then turned into the prone position on operating table making sure that all the pressure points were well padded. Area the sacral decubitus wound was then prepped and draped in usual sterile fashion. Time-out was then performed correctly identifying the patient as well as procedure to be performed. He was on oral antibiotics and IV antibiotics were given. I 1st started by irrigating out the wound with sterile saline solution wash out all of the Betadine. Then with sharp scalpel excisional dissection I debrided the small amount of nonviable skin, subcutaneous tissue, and muscle in the wound. There was good bleeding from all of these incision sites. I then achieved hemostasis utilized cautery. Measured the wound and it was 15cm in length by 12cm in width by 1.5cm in depth. I then spread the Axial Fill allograft over the base of the wound in a thin layer and then covered it with 2 pieces of Adaptic gauze. On top of the Adaptic gauze I then placed black foam sponge for the wound VAC. Both areas covered with the allograft and the VAC were 180 sq cm. I then applied clear adhesive dressings over the black gauze and tunneled it on top of the skin over to the left lateral hip region were I applied the suction pad so that was not be on his buttocks. The wound VAC was then turned on and I was able to achieve a good seal without any leaks of air. The patient tolerated the procedure well no complications. All sponges, needles, and instrument counts were correct at the end procedure. EBL was _25__cc. The patient was awakened and taken to recovery in stable and satisfactory condition. Implants Axial Fill allograft 2 Gram vial. Black sponge wound VAC Estimated Blood Loss -25.0 Urine Output 600 Drains No Packing Yes (Wound VAC to decubitus ulcer) Pathology None sent Complications No immediate complications Condition Stable Disposition PACU [facility] Billing Surgery - Charge Forward: Surgery Billing
--- NOTE | 2023-04-22 11:10 | PM.IMPN ---
Progress Note: A&P Assessment and Plan (1) Sacral decubitus ulcer: Qualifiers: Pressure injury stage: unspecified pressure injury stage Qualified Code(s): L89.159 - Pressure ulcer of sacral region, unspecified stage Code(s): L89.159 - Pressure ulcer of sacral region, unspecified stage Status: Acute Assessment and Plan: Cultures noted. Continue oral antibiotics Wound VAC Debridement today. (2) Hypotension: Code(s): I95.9 - Hypotension, unspecified Status: Acute Assessment and Plan: Monitor (3) Atrial fibrillation: Code(s): I48.91 - Unspecified atrial fibrillation Status: Acute Assessment and Plan: Patient with chronic AFib. Rate controlled. Mild bradycardia today. Heart rates in the 50s. Will recheck digit level. (4) Type 2 diabetes mellitus: Code(s): E11.9 - Type 2 diabetes mellitus without complications Status: Acute Assessment and Plan: A1c 7.3. The patient's blood glucose was reviewed on 04/19 Glucose better controlled Continue AccuCheks covering with sliding scale. Hypoglycemia protocol available as needed. Diabetic diet. Continue to monitor (5) Severe malnutrition: Code(s): E43 - Unspecified severe protein-calorie malnutrition Status: Acute Assessment and Plan: Patient with severe malnutrition related to inadequate protein energy intake with increased protein energy needs in the setting of chronic disease with diabetes and stage IV sacral decubitus ulcer as evidenced by severe muscle loss noted in the following areas: Temporalis and clavicular region as well as weight loss of 24 lb prior to admission. Supplements added. Vit D very low despite being on replacement. CT February showing atrophic pancreas. Abd MRI Mar 2022 showing chronic pancreatitis. Consider malabsorption. Continue Creon. (6) Retention of urine: Code(s): R33.9 - Retention of urine, unspecified Status: Acute Assessment and Plan: With Whyte, now having hematuria. Will check UA Urology consult Subjective Date/time seen: 04/22/23 11:10 Interval history: Patient had procedure this morning. During procedure he had significant hematuria in his Whyte. He does have a chronic Whyte in. Exam Narrative: AF 97.8 97/44 53 18 99% ra Gen - NARD Chest - clear anteriorly, nml RR CV - irregularly irregular Abd - soft, NT/ND. - Whyte secured draining clear yellow urine Ext - Wenceslao hose in place. trace periankle edema. Psych - Nml mood and affect Skin - Warm and dry Objective Data Vital Signs Vital Signs: Vital Signs - 24 hr 04/21/23 13:22 04/21/23 16:59 04/21/23 18:45 Temperature 97.6 F 97.7 F Pulse Rate 47 L 54 L 52 L Respiratory Rate 16 18 Blood Pressure 108/42 L 95/43 L Pulse Oximetry 100 98 Oxygen Delivery Oxygen Flow Rate 04/21/23 19:59 04/21/23 20:20 04/22/23 00:25 Temperature 96.9 F L 96.9 F L Pulse Rate 52 L 52 L 5 L Respiratory Rate 18 18 18 Blood Pressure 100/46 L 101/49 L Pulse Oximetry 95 95 97 Oxygen Delivery Room Air Oxygen Flow Rate 04/22/23 04:57 04/22/23 07:53 04/22/23 09:58 Temperature 96.8 F L 98.0 F 98.6 F Pulse Rate 63 52 L 54 L Respiratory Rate 18 20 26 H Blood Pressure 102/42 L 112/42 L 117/48 L Pulse Oximetry 100 96 100 Oxygen Delivery Room Air Simple Face Mask Oxygen Flow Rate 8 Intake/Output Intake/Output: Intake & Output 04/19/23 04/20/23 04/21/23 04/22/23 23:59 23:59 23:59 23:59 Intake Total 3070 1760 2200 0 Output Total 2625 2600 3150 1800 Balance 745 -193 -967 -0210 Meds/Results Medications: Active Medications Generic Name Dose Route Start Last Admin Trade Name Freq PRN Reason Stop Dose Admin Acetaminophen 650 mg 04/13/23 21:22 04/21/23 18:33 Acetaminophen 325 Mg Tablet PO 650 mg Q6H PRN Administration Mild Pain (1-3) Or Fever Amiodarone HCl 200 mg 04/14/23 08:00 04/21/23 07:55
--- NOTE | 2023-04-22 13:01 | WPDURCON ---
Assessment and Plan Assessment and plan (1) Retention of urine: Code(s): R33.9 - Retention of urine, unspecified Status: Acute (2) Hematuria: Code(s): R31.9 - Hematuria, unspecified Status: Acute Assessment and Plan: Urine culture negative. Obtain CT for further assessment. Likely related to anticoagulants or mcgovern trauma. Urology Consult Note HPI Date Seen: 04/22/23 Time Seen: 12:00 Requesting Physician: Vaughn Jarvis MD Primary Care Provider: Mario Salmeron, Consult Narrative Reason for consult: Hematuria Narrative: John Warren is a 73 year old male who we were consulted to see regarding new onset of gross hematuria that began yesterday according to his nurse. He underwent an I&D for a buttock wound today with Dr. Mendoza and after the procedure, he was turned from the prone position to supine and increasing grossly bloody urine was noted with small clots. His urine was also reported to be cloudy and malodorous as of yesterday which has continued today. He was seen at the bedside in recovery and was alert and oriented, but states that his catheter is chronic and is changed monthly. He denies previous gross hematuria. He is on ASA and Eliquis at home. He is afebrile, creatinine is 0.60 and his urine culture from 04/20/[address] scan done last month shows: ?Bilateral hydronephrosis with urothelial enhancement, suspicious for ascending urinary tract infection and/or pyelonephritis although the urine culture at that time was negative. 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 Family History Family History Father Cancer Hypertension Heart disease Mother Cancer Diabetes mellitus Hypertension Heart disease Sibling Cancer Hypertension Heart disease Other Asthma Carcinoma of colon Cerebrovascular accident Depression Family history of arthritis Family history of cardiovascular disease Family history of chronic obstructive pulmonary disease Family history of malignant neoplasm Family history of malignant neoplasm of breast in first degree relative Family history of mental disorder Malignant neoplasm of prostate Social History Social History Social History: Surrogate medical decision maker: Rocio Peña, daughter. Code status: Full code. Smoking status: Former smoker Tobacco type: cigarettes Second hand tobacco smoke exposure: Yes Smoking end date: 08/29/85 Alcohol intake: never Substance use: never Substance use type: does not use Lack of Transportation: No Lack of Food: Never True Current Housing: I Have Housing Concerned About Future Housing: Decline to Answer Difficulty Paying Gas/Electric Bills: No Difficulty Paying for Meds: No Currently Unemployed: No Education: Decline to Answer Difficulty w/ Childcare or Family Care: No Spiritual care concerns: No Med
[2023-04-22] MEDS: AMIODARONE HCL 200 MG TABLET PO (13:25)
[2023-04-22] MEDS: ASPIRIN 81 MG CHEWABLE TABLET PO (13:26)
[2023-04-22] MEDS: metFORMIN HCL XR 500 MG TAB.SR.24H 2000 MG PO (13:26)
[2023-04-22] MEDS: EMPAGLIFLOZIN 25 MG TABLET PO (13:27)
[2023-04-22] MEDS: DIGOXIN 250 MCG TABLET PO (13:27)
[2023-04-22] MEDS: AMOXICILLIN/CLAVULANATE K 875-125 MG TAB 1 TABLET PO ×2 (13:27→21:10)
[2023-04-22] MEDS: FINASTERIDE 5 MG TABLET PO (13:28)
[2023-04-22] MEDS: MONTELUKAST SODIUM 10 MG TABLET PO (13:28)
[2023-04-22] MEDS: OMEGA 3 POLYUNSAT FATTY ACIDS 1 GM CAP 4 GM PO (13:29)
[2023-04-22] MEDS: PREGABALIN (*CRX) 75 MG CAPSULE 150 MG PO (13:30)
[2023-04-22] MEDS: PRAVASTATIN SODIUM 20 MG TABLET 40 MG PO (13:30)
[2023-04-22] MEDS: TAMSULOSIN HCL 0.4 MG CAPSULE PO (13:31)
[2023-04-22] MEDS: MIDODRINE HCL 10 MG TABLET PO ×2 (13:31→17:02)
[2023-04-22] MEDS: TOLNAFTATE 1% POWDER 45 GM BTL 1 APPLIC TOPICAL ×2 (13:32→21:15)
[2023-04-22] MEDS: MUPIROCIN 2% OINT 22 GM TUBE 1 APPLIC TOPICAL (13:33)
[2023-04-22 13:47] LABS: Glucose Point of Care 171 mg/dl (65-105)
[2023-04-22 14:14] LABS: Appearance Urine Turbid (Clear); Bacteria Urine Rare /hpf; Bilirubin Urine Negative (Negative); Blood Urine 3+ (Negative); Color Urine Yellow (Yellow); Glucose Urine UA 3+ mg/dL (Negative); Ketones Urine Negative (Negative); Leukocyte Esterase Ur 3+ LEU/UL (Negative); Need Manual Microscopic Reviewed; Nitrate Urine Negative (Negative); Non Pathogenic Casts 0-2; Protein Urine 2+ mg/dL (Negative); RBC Urine >100 /hpf (0-2); Specific Grav Ur 1.033 (1.001-1.035); Squamous Epithelial Cell Urine Many /hpf (Few); Urobilinogen Urine 0.2 mg/dL (<2.0); WBC Urine >100 /hpf; pH Urine 5.5 (5.0-9.0)
[2023-04-22 14:15] LABS: Add Urine Microscopic? YES
[2023-04-22 14:52] LABS: Alpha-Tocopherol 5.3 mg/L (5.7-19.9); Beta-Gamma Tocopherol <1.0 mg/L (<=4.3); Vitamin A 11 mcg/dL (38-98)
[2023-04-22 16:54] LABS: Glucose Point of Care 183 mg/dl (65-105)
[2023-04-22] MEDS: LIPASE/AMYLASE/PROTEASE 12,000 UNITS CAP 1 CAP PO (17:01)
[2023-04-22] MEDS: oxyCODONE/ACETAMINOPHEN (*CRX) 5-325 MG TABLET 1 TABLET PO (17:03)
[2023-04-22] MEDS: PANTOPRAZOLE 40 MG TABLET PO (17:03)
[2023-04-22] MEDS: INSULIN ASPART (*BKC) 100 UNITS/ML SUB-Q (21:10)
[2023-04-22 21:35] LABS: Glucose Point of Care 203 mg/dl (65-105)
[2023-04-23] VITALS (13 sets, daily range): BP systolic 100–120; BP diastolic 40–56; PULSE 52–62; RESP 12–18; TEMP 35.9–37.1; O2SAT 97–100
[2023-04-23] MEDS: SALINE LOCK FLUSH 10 ML IV PUSH ×3 (05:25→20:56)
[2023-04-23 07:36] LABS: Basophils Percent Auto 0.2 % (0.2-1.2); Eosinophils Percent Auto 0.5 % (0-4.4); Hematocrit 27.8 % (42.0-52.0); Hemoglobin 8.2 g/dL (14.0-18.0); Immature Granulocyte Absolute 0.05 K/mm3 (0.00-0.031); Immature Granulocyte Percent A 0.6 % (0-0.5); Lymphocytes Absolute Auto 1.61 K/mm3 (0.9-3.2); Lymphocytes Percent Auto 19.7 % (18.3-44.2); Mean Corpuscular HGB Conc 29.5 g/dl (32-36); Mean Corpuscular Hemoglobin 25.6 pg (26-34); Mean Corpuscular Volume 86.9 fl (80-100); Mean Platelet Volume 9.6 fl (7.4-10.4); Monocytes Absolute Auto 0.5 K/mm3 (0.1-0.6); Monocytes Percent Auto 6.4 % (2.6-8.5); Neutrophils Absolute Auto 5.9 K/mm3 (1.3-6.7); Neutrophils Percent Auto 72.6 % (45.5-73.1); Platelet Count Result 258 k/mm3 (150-375); Red Cell Distribution Width 18.7 % (11.5-14.5); White Blood Count 8.2 K/mm3 (4.5-10.0)
[2023-04-23 07:46] LABS: Glucose Point of Care 172 mg/dl (65-105)
[2023-04-23 07:49] LABS: Anion Gap 4 mmol/L (8-16); Blood Urea Nitrogen 14 mg/dL (9-20); Calcium 7.1 mg/dL (8.4-10.2); Carbon Dioxide 24 mmol/L (22-30); Chloride 107 mmol/L (98-107); Estimated CRCL calculation 130 ml/min; Estimated Glomerular Filt Rate > 60; Glucose 165 mg/dL (65-110); Potassium 4.3 mmol/L (3.4-5.0); Sodium 135 mmol/L (137-145)
[2023-04-23] MEDS: AMIODARONE HCL 200 MG TABLET PO (08:57)
[2023-04-23] MEDS: LIPASE/AMYLASE/PROTEASE 12,000 UNITS CAP 1 CAP PO ×3 (08:58→17:12)
[2023-04-23] MEDS: metFORMIN HCL XR 500 MG TAB.SR.24H 2000 MG PO (08:58)
[2023-04-23] MEDS: ASPIRIN 81 MG CHEWABLE TABLET PO (08:58)
[2023-04-23] MEDS: DIGOXIN 250 MCG TABLET PO (08:59)
[2023-04-23] MEDS: EMPAGLIFLOZIN 25 MG TABLET PO (08:59)
[2023-04-23] MEDS: FINASTERIDE 5 MG TABLET PO (08:59)
[2023-04-23] MEDS: AMOXICILLIN/CLAVULANATE K 875-125 MG TAB 1 TABLET PO ×2 (08:59→20:04)
[2023-04-23] MEDS: METOPROLOL TARTRATE 50 MG TAB PO (09:00)
[2023-04-23] MEDS: OMEGA 3 POLYUNSAT FATTY ACIDS 1 GM CAP 4 GM PO (09:00)
[2023-04-23] MEDS: MIDODRINE HCL 10 MG TABLET PO ×3 (09:00→17:12)
[2023-04-23] MEDS: MONTELUKAST SODIUM 10 MG TABLET PO (09:00)
[2023-04-23] MEDS: PREGABALIN (*CRX) 75 MG CAPSULE 150 MG PO (09:01)
[2023-04-23] MEDS: PANTOPRAZOLE 40 MG TABLET PO ×2 (09:01→17:13)
[2023-04-23] MEDS: PRAVASTATIN SODIUM 20 MG TABLET 40 MG PO (09:01)
[2023-04-23] MEDS: TAMSULOSIN HCL 0.4 MG CAPSULE PO (09:02)
[2023-04-23] MEDS: SODIUM CHLORIDE 0.9% IV 1,000 ML 60 ML IV CONT (09:02)
[2023-04-23] MEDS: TOLNAFTATE 1% POWDER 45 GM BTL 1 APPLIC TOPICAL ×2 (09:04→20:09)
[2023-04-23] MEDS: MUPIROCIN 2% OINT 22 GM TUBE 1 APPLIC TOPICAL (09:04)
[2023-04-23] MEDS: ENOXAPARIN 30 MG/0.3 ML SYRINGE SUB-Q (09:05)
--- NOTE | 2023-04-23 10:33 | PCPTNOTE ---
Patient refused treatment this session. He stated that due to the sore on his bottom he can't get up and sit. The patient educated on benefits of getting up out of bed. Will continue per PT plan of care.
--- NOTE | 2023-04-23 10:46 | PM.PNGS ---
Progress Note: A&P Assessment and Plan (1) Decubitus ulcer: Code(s): L89.90 - Pressure ulcer of unspecified site, unspecified stage Status: Acute Assessment and Plan: Stage IV sacral decubitus ulcer presently being treated with application of allograft and wound VAC. Change the wound VAC is planned for Tuesday of next week. He will need to stay in the hospital until then. Continue with plans for discharge disposition planning. Okay to be on oral antibiotics. Subjective Subjective Date/Time Seen: 04/23/23 10:46 Interval history: Patient seems to be doing well today. Clinically he is unchanged. No problems with seal on the wound VAC sacral decubitus wound. Drainage from the wound VAC is old bloody serous. Exam Skin: Other: Sacral decubitus wound dressed with wound VAC. no worsening redness or drainage from the wound VAC. Objective Data Vital Signs Vital Signs: Vital Signs - 24 hr 04/22/23 10:55 04/22/23 11:10 04/22/23 11:25 Temperature Pulse Rate 57 L 58 L 59 L Respiratory Rate 21 H 20 19 Blood Pressure 121/49 L 124/53 L 120/51 L Pulse Oximetry 98 98 98 Oxygen Delivery Room Air Room Air Room Air 04/22/23 11:40 04/22/23 11:55 04/22/23 12:10 Temperature Pulse Rate 59 L 59 L 59 L Respiratory Rate 20 19 19 Blood Pressure 124/53 L 115/48 L 116/46 L Pulse Oximetry 99 99 98 Oxygen Delivery Room Air Room Air Room Air 04/22/23 13:25 04/22/23 13:27 04/22/23 12:58 Temperature 36.8 C Pulse Rate 58 L 58 L 57 L Respiratory Rate 18 Blood Pressure 115/42 L Pulse Oximetry 97 Oxygen Delivery 04/22/23 13:37 04/22/23 14:07 04/22/23 13:00 Temperature 36.6 C 36.6 C Pulse Rate 61 58 L Respiratory Rate 18 18 Blood Pressure 134/48 L 130/55 L Pulse Oximetry 96 100 Oxygen Delivery Room Air 04/22/23 17:02 04/22/23 18:38 04/22/23 20:47 Temperature 36.9 C 36.6 C Pulse Rate 56 L 55 L 56 L Respiratory Rate 18 18 Blood Pressure 108/44 L 106/46 L Pulse Oximetry 99 95 Oxygen Delivery 04/22/23 20:00 04/23/23 00:00 04/23/23 00:22 Temperature 37.1 C 37.1 C Pulse Rate 56 L 54 L 54 L Respiratory Rate 18 16 16 Blood Pressure 100/46 L 100/46 L Pulse Oximetry 95 97 97 Oxygen Delivery Room Air 04/23/23 04:00 04/23/23 05:50 04/23/23 07:50 Temperature 36.0 C L 36.0 C L 36.2 C L Pulse Rate 58 L 58 L 62 Respiratory Rate 16 16 12 Blood Pressure 106/46 L 106/46 L 116/50 L Pulse Oximetry 97 97 97 Oxygen Delivery 04/23/23 08:57 04/23/23 08:59 04/23/23 09:00 Temperature Pulse Rate 62 62 62 Respiratory Rate Blood Pressure Pulse Oximetry Oxygen Delivery 04/23/23 08:45 Temperature Pulse Rate Respiratory Rate Blood Pressure Pulse Oximetry Oxygen Delivery Room Air Intake/Output Intake/Output: Intake & Output 04/20/23 04/21/23 04/22/23 04/23/23 23:59 23:59 23:59 23:59 Intake Total 1760 2200 3090 1720 Output Total 2600 3150 3800 1750 Balance -840 -950 -710 -30 Meds/Results Medications: Active Medications Generic Name Dose Route Start Last Admin Trade Name Wilmerq PRN Reason Stop Dose Admin Acetaminophen 650 mg 04/13/23 21:22 04/21/23 18:33 Acetaminophen 325 Mg Tablet PO 650 mg Q6H PRN Administration Mild Pain (1-3) Or Fever Amiodarone HCl 200 mg 04/14/23 08:00 04/23/23 08:57 Amiodarone Hcl 200 Mg Tablet PO 200 mg DAILY@0800 YESSICA Administration Amoxicillin/Clavulanate Potassium 1 tablet 04/21/23 12:00 04/23/23 08:59 Amoxicillin/Clavulanate K 875-125 Mg Tab PO 04/29/23 23:59 1 tablet Q12HR YESSICA Administration Lipase/Protease/Amylase 1 cap 04/17/23 12:00 04/23/23 08:58 Lipase/Amylase/Protease 12,000 Units Cap PO 1 cap TIDWM YESSICA Administration Apixaban 5 mg 04/15/23 17:00 04/21/23 07:56 Apixaban 5 Mg Tablet PO 5 mg BID YESSICA Administration Aspirin 81 mg 04/14/23 08:00 04/23/23 08:58 Aspirin 81 Mg Chewable Tablet PO 81 mg DAILY@0800 YESSICA
--- NOTE | 2023-04-23 10:54 | PM.IMPN ---
Progress Note: A&P Assessment and Plan (1) Sacral decubitus ulcer: Qualifiers: Pressure injury stage: unspecified pressure injury stage Qualified Code(s): L89.159 - Pressure ulcer of sacral region, unspecified stage Code(s): L89.159 - Pressure ulcer of sacral region, unspecified stage Status: Acute Assessment and Plan: Cultures noted. Continue oral antibiotics Wound VAC Debridement yesterday Appreciate surgical input (2) Hypotension: Code(s): I95.9 - Hypotension, unspecified Status: Acute Assessment and Plan: Monitor, resolved (3) Atrial fibrillation: Code(s): I48.91 - Unspecified atrial fibrillation Status: Acute Assessment and Plan: Patient with chronic AFib. Rate controlled. Mild bradycardia today. Heart rates in the 50s. Digoxin level normal monitor (4) Type 2 diabetes mellitus: Code(s): E11.9 - Type 2 diabetes mellitus without complications Status: Acute Assessment and Plan: Diabetic diet, Accu-Cheks and insulin as needed (5) Severe malnutrition: Code(s): E43 - Unspecified severe protein-calorie malnutrition Status: Acute (6) Retention of urine: Code(s): R33.9 - Retention of urine, unspecified Status: Acute Assessment and Plan: With Whyte, now having hematuria. Will check UA Urology consult -appreciate recommendations CT scan noted Subjective Date/time seen: 04/23/23 10:54 Interval history: No complaints, patient is comfortable. Exam Narrative: AF 97.8 97/44 53 18 99% ra Gen - NARD Chest - clear anteriorly, nml RR CV - irregularly irregular Abd - soft, NT/ND. - Whyte secured draining clear yellow urine Ext - Wenceslao hose in place. trace periankle edema. Psych - Nml mood and affect Skin - Warm and dry Objective Data Vital Signs Vital Signs: Vital Signs - 24 hr 04/22/23 10:55 04/22/23 11:10 04/22/23 11:25 Temperature Pulse Rate 57 L 58 L 59 L Respiratory Rate 21 H 20 19 Blood Pressure 121/49 L 124/53 L 120/51 L Pulse Oximetry 98 98 98 Oxygen Delivery Room Air Room Air Room Air 04/22/23 11:40 04/22/23 11:55 04/22/23 12:10 Temperature Pulse Rate 59 L 59 L 59 L Respiratory Rate 20 19 19 Blood Pressure 124/53 L 115/48 L 116/46 L Pulse Oximetry 99 99 98 Oxygen Delivery Room Air Room Air Room Air 04/22/23 13:25 04/22/23 13:27 04/22/23 12:58 Temperature 98.2 F Pulse Rate 58 L 58 L 57 L Respiratory Rate 18 Blood Pressure 115/42 L Pulse Oximetry 97 Oxygen Delivery 04/22/23 13:37 04/22/23 14:07 04/22/23 13:00 Temperature 97.8 F 97.8 F Pulse Rate 61 58 L Respiratory Rate 18 18 Blood Pressure 134/48 L 130/55 L Pulse Oximetry 96 100 Oxygen Delivery Room Air 04/22/23 17:02 04/22/23 18:38 04/22/23 20:47 Temperature 98.4 F 97.9 F Pulse Rate 56 L 55 L 56 L Respiratory Rate 18 18 Blood Pressure 108/44 L 106/46 L Pulse Oximetry 99 95 Oxygen Delivery 04/22/23 20:00 04/23/23 00:00 04/23/23 00:22 Temperature 98.8 F 98.8 F Pulse Rate 56 L 54 L 54 L Respiratory Rate 18 16 16 Blood Pressure 100/46 L 100/46 L Pulse Oximetry 95 97 97 Oxygen Delivery Room Air 04/23/23 04:00 04/23/23 05:50 04/23/23 07:50 Temperature 96.8 F L 96.8 F L 97.2 F L Pulse Rate 58 L 58 L 62 Respiratory Rate 16 16 12 Blood Pressure 106/46 L 106/46 L 116/50 L Pulse Oximetry 97 97 97 Oxygen Delivery 04/23/23 08:57 04/23/23 08:59 04/23/23 09:00 Temperature Pulse Rate 62 62 62 Respiratory Rate Blood Pressure Pulse Oximetry Oxygen Delivery 04/23/23 08:45 Temperature Pulse Rate Respiratory Rate Blood Pressure Pulse Oximetry Oxygen Delivery Room Air Intake/Output Intake/Output: Intake & Output 04/20/23 04/21/23 04/22/23 04/23/23 23:59 23:59 23:59 23:59 Intake Total 1760 2200 3090 1720 Output Total 2600 3150 3800 1750 [facility] -840 -950 -710 -30 Meds/Results Medi
[2023-04-23 11:45] LABS: Glucose Point of Care 185 mg/dl (65-105)
[2023-04-23 16:35] LABS: Glucose Point of Care 152 mg/dl (65-105)
[2023-04-23] MEDS: oxyCODONE/ACETAMINOPHEN (*CRX) 5-325 MG TABLET 1 TABLET PO (20:06)
[2023-04-23 20:31] LABS: Glucose Point of Care 168 mg/dl (65-105)
[2023-04-24] VITALS (10 sets, daily range): BP systolic 100–118; BP diastolic 38–52; PULSE 51–74; RESP 14–18; TEMP 36.3–37.7; O2SAT 94–100
[2023-04-24] MEDS: SODIUM CHLORIDE 0.9% IV 1,000 ML 60 ML IV CONT (04:27)
[2023-04-24] MEDS: SALINE LOCK FLUSH 10 ML IV PUSH ×3 (04:27→20:42)
[2023-04-24 07:41] LABS: Glucose Point of Care 186 mg/dl (65-105)
[2023-04-24] MEDS: PANTOPRAZOLE 40 MG TABLET PO ×2 (09:02→17:32)
[2023-04-24] MEDS: LIPASE/AMYLASE/PROTEASE 12,000 UNITS CAP 1 CAP PO ×3 (09:02→17:32)
[2023-04-24] MEDS: ASPIRIN 81 MG CHEWABLE TABLET PO (09:02)
[2023-04-24] MEDS: AMIODARONE HCL 200 MG TABLET PO (09:02)
[2023-04-24] MEDS: DIGOXIN 250 MCG TABLET PO (09:03)
[2023-04-24] MEDS: metFORMIN HCL XR 500 MG TAB.SR.24H 2000 MG PO (09:03)
[2023-04-24] MEDS: AMOXICILLIN/CLAVULANATE K 875-125 MG TAB 1 TABLET PO ×2 (09:03→20:41)
[2023-04-24] MEDS: ENOXAPARIN 40 MG/0.4 ML SYRINGE SUB-Q (09:04)
[2023-04-24] MEDS: EMPAGLIFLOZIN 25 MG TABLET PO (09:04)
--- NOTE | 2023-04-24 09:04 | PM.PNGS ---
Progress Note: A&P Assessment and Plan (1) Decubitus ulcer: Code(s): L89.90 - Pressure ulcer of unspecified site, unspecified stage Status: Acute Assessment and Plan: Patient is stable surgically. Wound VAC in place. Plan on taking wound VAC off in 3 days from now. Continue supportive management. Subjective Subjective Date/Time Seen: 04/24/23 09:04 Interval history: Patient is doing well from surgical perspective. He seems to be low more tired today. No issues with the wound VAC yesterday. Did have a bowel movement yesterday and the seal on the wound VAC will did fine. Exam Skin: Other: Sacral decubitus wound VAC in place. Good seal noted. Drainage from the wound VAC is old bloody serous fluid. Objective Data Vital Signs Vital Signs: Vital Signs - 24 hr 04/23/23 11:50 04/23/23 16:00 04/23/23 17:13 Temperature 36.1 C L 35.9 C L Pulse Rate 58 L 53 L 54 L Respiratory Rate 16 16 Blood Pressure 110/48 L 110/48 L Pulse Oximetry 97 97 Oxygen Delivery 04/23/23 20:00 04/23/23 20:00 04/23/23 23:35 Temperature 36.6 C 36.4 C Pulse Rate 52 L 56 L 58 L Respiratory Rate 18 18 16 Blood Pressure 101/40 L 120/56 L Pulse Oximetry 100 99 97 Oxygen Delivery Room Air 04/24/23 04:00 04/24/23 07:40 Temperature 37.7 C H 37.2 C Pulse Rate 69 60 Respiratory Rate 16 16 Blood Pressure 114/38 L 110/42 L Pulse Oximetry 94 95 Oxygen Delivery Intake/Output Intake/Output: Intake & Output 04/21/23 04/22/23 04/23/23 04/24/23 23:59 23:59 23:59 23:59 Intake Total 2200 3090 2790 1500 Output Total 3150 3800 3050 1900 Balance -806 -861 -260 -217 Meds/Results Medications: Active Medications Generic Name Dose Route Start Last Admin Trade Name Freq PRN Reason Stop Dose Admin Acetaminophen 650 mg 04/13/23 21:22 04/21/23 18:33 Acetaminophen 325 Mg Tablet PO 650 mg Q6H PRN Administration Mild Pain (1-3) Or Fever Amiodarone HCl 200 mg 04/14/23 08:00 04/23/23 08:57 Amiodarone Hcl 200 Mg Tablet PO 200 mg DAILY@0800 [facility] Administration Amoxicillin/Clavulanate Potassium 1 tablet 04/21/23 12:00 04/23/23 20:04 Amoxicillin/Clavulanate K 875-125 Mg Tab PO 04/29/23 23:59 1 tablet Q12HR YESSICA Administration Lipase/Protease/Amylase 1 cap 04/17/23 12:00 04/23/23 17:12 Lipase/Amylase/Protease 12,000 Units Cap PO 1 cap TIDWM YESSICA Administration Apixaban 5 mg 04/15/23 17:00 04/21/23 07:56 Apixaban 5 Mg Tablet PO 5 mg BID [facility] Administration Aspirin 81 mg 04/14/23 08:00 04/23/23 08:58 Aspirin 81 Mg Chewable Tablet PO 81 mg DAILY@0800 [facility] Administration Bisacodyl 5 mg 04/13/23 21:22 Bisacodyl 5 Mg Tablet Ec PO QAM PRN Constipation Dextrose 12.5 gm 04/13/23 15:33 Dextrose 50% 25 Gm/50 Ml Syringe IV PUSH PRN PRN Hypoglycemia Protocol Digoxin 250 mcg 04/14/23 09:00 04/23/23 08:59 Digoxin 250 Mcg Tablet PO 250 mcg QAM [facility] Administration Empagliflozin 25 mg 04/14/23 09:00 04/23/23 08:59 Empagliflozin 25 Mg Tablet PO 25 mg DAILY [facility] Administration Enoxaparin Sodium 40 mg 04/24/23 09:00 Enoxaparin 40 Mg/0.4 Ml Syringe SUB-Q DAILY [facility] Ergocalciferol 50,000 units 04/26/23 09:00 Ergocalciferol 50,000 Units Capsule PO WEEKLY [facility] Finasteride 5 mg 04/14/23 09:00 04/23/23 08:59 Finasteride 5 Mg Tablet PO 5 mg QAM [facility] Administration Fish Oil 4 gm 04/14/23 09:00 04/23/23 09:00 [place] 3 Polyunsat Fatty Acids 1 Gm Cap PO 4 gm DAILY [facility] Administration Glucagon 1 mg 04/13/23 15:33 Glucagon For Inj 1 Mg Vial IM PRN PRN Hypoglycemia Protocol Glucose 15 gm 04/13/23 15:33 Glucose Oral Gel 15 Gm Of Glucse In 37.5 Gm Tube PO PRN PRN Hypoglycemia Protocol Dextrose 1,000 mls @ 100 mls/hr 04/13/23 15:33 Dextrose 5% 1,000 Ml IVPB PRN PRN Hypoglycemia Protocol Sodium Chloride
[2023-04-24] MEDS: FINASTERIDE 5 MG TABLET PO (09:05)
[2023-04-24] MEDS: METOPROLOL TARTRATE 50 MG TAB PO (09:06)
[2023-04-24] MEDS: MIDODRINE HCL 10 MG TABLET PO ×3 (09:06→17:32)
[2023-04-24] MEDS: MONTELUKAST SODIUM 10 MG TABLET PO (09:06)
[2023-04-24] MEDS: TOLNAFTATE 1% POWDER 45 GM BTL 1 APPLIC TOPICAL ×2 (09:06→20:42)
[2023-04-24] MEDS: MUPIROCIN 2% OINT 22 GM TUBE 1 APPLIC TOPICAL (09:06)
[2023-04-24] MEDS: OMEGA 3 POLYUNSAT FATTY ACIDS 1 GM CAP 4 GM PO (09:07)
[2023-04-24] MEDS: TAMSULOSIN HCL 0.4 MG CAPSULE PO (09:08)
[2023-04-24] MEDS: PRAVASTATIN SODIUM 20 MG TABLET 40 MG PO (09:08)
[2023-04-24] MEDS: PREGABALIN (*CRX) 75 MG CAPSULE 150 MG PO (09:08)
--- NOTE | 2023-04-24 09:47 | WPDUROPN2 ---
Progress Note: A&P Assessment and Plan (1) Hematuria: Code(s): R31.9 - Hematuria, unspecified Status: Acute (2) Severe malnutrition: Code(s): E43 - Unspecified severe protein-calorie malnutrition Status: Acute Assessment and Plan: Urine clear, without hematuria Will plan to leave catheter until patient is more ambulatory Subjective Subjective Date/Time Seen: 04/24/23 09:47 Interval history: Comfortable, no complaints Review of Systems Cardiovascular: Cardiovascular: Denies chest pain, Denies lightheadedness, Denies palpitations and Denies dyspnea Respiratory: Respiratory: Denies dyspnea Gastrointestinal: Gastrointestinal: Denies diarrhea, Denies nausea and Denies vomiting Genitourinary: Genitourinary: Denies hematuria and Denies dysuria Endocrine: Endocrine: Denies palpitations Exam Const: General: no acute distress Resp: Effort & Inspection: normal respiratory effort GI: Inspection: non-distended GI Palp: No abdominal tenderness and No Guarding due to palpation present (GI) Auscultation: normal bowel sounds Urinary Catheter: Urinary Catheter: patent and draining and urine clear Objective Data Vital Signs Vital Signs: Vital Signs - 24 hr 04/23/23 11:50 04/23/23 16:00 04/23/23 17:13 Temperature 96.9 F L 96.7 F L Pulse Rate 58 L 53 L 54 L Respiratory Rate 16 16 Blood Pressure 110/48 L 110/48 L Pulse Oximetry 97 97 Oxygen Delivery 04/23/23 20:00 04/23/23 20:00 04/23/23 23:35 Temperature 97.9 F 97.6 F Pulse Rate 52 L 56 L 58 L Respiratory Rate 18 18 16 Blood Pressure 101/40 L 120/56 L Pulse Oximetry 100 99 97 Oxygen Delivery Room Air 04/24/23 04:00 04/24/23 07:40 04/24/23 09:02 Temperature 99.8 F H 98.9 F Pulse Rate 69 60 74 Respiratory Rate 16 16 Blood Pressure 114/38 L 110/42 L Pulse Oximetry 94 95 Oxygen Delivery 04/24/23 09:03 04/24/23 09:06 Temperature Pulse Rate 74 74 Respiratory Rate Blood Pressure Pulse Oximetry Oxygen Delivery Intake/Output Intake/Output: Intake & Output 04/21/23 04/22/23 04/23/23 04/24/23 23:59 23:59 23:59 23:59 Intake Total 2200 3090 2790 1740 Output Total 5580 7480 2330 1900 [facility] -135 -499 -260 -160 Meds/Results Medications: Active Medications Generic Name Dose Route Start Last Admin Trade Name Freq PRN Reason Stop Dose Admin Acetaminophen 650 mg 04/13/23 21:22 04/21/23 18:33 Acetaminophen 325 Mg Tablet PO 650 mg Q6H PRN Administration Mild Pain (1-3) Or Fever Amiodarone HCl 200 mg 04/14/23 08:00 04/24/23 09:02 Amiodarone Hcl 200 Mg Tablet PO 200 mg DAILY@0800 YESSICA Administration Amoxicillin/Clavulanate Potassium 1 tablet 04/21/23 12:00 04/24/23 09:03 Amoxicillin/Clavulanate K 875-125 Mg Tab PO 04/29/23 23:59 1 tablet Q12HR YESSICA Administration Lipase/Protease/Amylase 1 cap 04/17/23 12:00 04/24/23 09:02 Lipase/Amylase/Protease 12,000 Units Cap PO 1 cap TIDWM YESSICA Administration Apixaban 5 mg 04/15/23 17:00 04/21/23 07:56 Apixaban 5 Mg Tablet PO 5 mg BID YESSICA Administration Aspirin 81 mg 04/14/23 08:00 04/24/23 09:02 Aspirin 81 Mg Chewable Tablet PO 81 mg DAILY@0800 [facility] Administration Bisacodyl 5 mg 04/13/23 21:22 Bisacodyl 5 Mg Tablet Ec PO QAM PRN Constipation Dextrose 12.5 gm 04/13/23 15:33 Dextrose 50% 25 Gm/50 Ml Syringe IV PUSH PRN PRN Hypoglycemia Protocol Digoxin 250 mcg 04/14/23 09:00 04/24/23 09:03 Digoxin 250 Mcg Tablet PO 250 mcg QAM YESSICA Administration Empagliflozin 25 mg 04/14/23 09:00 04/24/23 09:04 Empagliflozin 25 Mg Tablet PO 25 mg DAILY [facility] Administration Enoxaparin Sodium 40 mg 04/24/23 09:00 04/24/23 09:04 Enoxaparin 40 Mg/0.4 Ml Syringe SUB-Q 40 mg DAILY [facility]ESSICA Administration Ergocalciferol 50,000 units 04/26/23 09:00 Ergocalciferol 50,000 Units Capsule PO WEEKLY [facility] Finasteride
--- NOTE | 2023-04-24 10:50 | PCOTNOTE ---
Attempted to see pt for Occupational Therapy treatment. Pt declined to participate in therapy at this time requesting for therapist to attempt later today. Pt states that he would like to possibly try EOB tasks today. Will continue per POC duration/frequency.
--- NOTE | 2023-04-24 11:30 | PM.IMPN ---
Progress Note: A&P Assessment and Plan (1) Sacral decubitus ulcer: Qualifiers: Pressure injury stage: unspecified pressure injury stage Qualified Code(s): L89.159 - Pressure ulcer of sacral region, unspecified stage Code(s): L89.159 - Pressure ulcer of sacral region, unspecified stage Status: Acute Assessment and Plan: The patient was a direct admit from [facility] for evaluation and treatment of worsening sacral decubitus ulcer. WBC normal and no fevers but was on IV abx on admission. Gen Surg consulted and felt the wound looked improved overall but did recommend debridement of a small area. Debridement performed on 04/15. BCx negative. Patient underwent sharp excisional scalpel debridement of skin subcutaneous tissue muscle from stage IV sacral decubitus ulcer with placement allograft and wound 04/22/2023. CT scan now showing sacral decubitus ulcer with erosions on bone c/w osteomyelitis. Continue wound vac. Continue curret abx. Discharge planning in process. (2) Hypotension: Code(s): I95.9 - Hypotension, unspecified Status: Acute Assessment and Plan: Patient has low blood pressure felt related to above but may be chronic or acute/chronic. Has low albumin which contributes to his HoTN. Encouraged oral intake. Supplements added. On midodrine chronically. Was treated with IV fluids but off now. BP better Continue metoprolol with parameters. Monitor closely. Stop IV fluids (3) Atrial fibrillation: Code(s): I48.91 - Unspecified atrial fibrillation Status: Acute Assessment and Plan: Patient with chronic AFib. Rate controlled. Digoxin level 1.3. Continue Digoxin, Amiodarone and Metoprolol Eliquis on hold - resume (4) Type 2 diabetes mellitus: Code(s): E11.9 - Type 2 diabetes mellitus without complications Status: Acute Assessment and Plan: A1c 7.3. The patient's blood glucose was reviewed on 04/24 Glucose better controlled Continue AccuCheks covering with sliding scale.? Hypoglycemia protocol available as needed.? Diabetic diet. Continue to monitor (5) Severe malnutrition: Code(s): E43 - Unspecified severe protein-calorie malnutrition Status: Acute Assessment and Plan: Patient with severe malnutrition related to inadequate protein energy intake with increased protein energy needs in the setting of chronic disease with diabetes and stage IV sacral decubitus ulcer as evidenced by severe muscle loss noted in the following areas:? Temporalis and clavicular region as well as weight loss of 24 lb prior to admission. Supplements added. Vit D very low despite being on replacement. Vit A/E low but fecal fat okay. CT February showing atrophic pancreas. Abd MRI Mar 2022 showing chronic pancreatitis. Consider malabsorption. Continue Creon.?Add Vit E and MVI (6) Retention of urine: Code(s): R33.9 - Retention of urine, unspecified Status: Acute Assessment and Plan: Patient with chronic Whyte. He developed hematuria. UCx negative 04/20 and 04/22 Urology consulted and appreciate their recommendations CT scan showing Bilateral pyelitis. Noncalcified filling defects in the proximal ureters may be hematoma. Urology following Hematuria resolved. Discussed with urology. Okay to resume Eliquis. Monitor for re-bleeding (7) Hematuria: Code(s): R31.9 - Hematuria, unspecified Status: Acute Assessment and Plan: As above Plan KUB showing moderate fecal loading. Add Miralax DVT Prophylaxis - Lvoexon. Add back Eliquis Code status - Full Subjective Date/time seen: 04/24/23 11:30 Interval history: 73yo male with hx of DVT, DM, HTN and pAFib here for worsening sacral decubitus ulcer. Resuming care. Chart reviewed. No problems overnight. Eating well. Nausea or vomiting. Sacral pain is tolerable. No diarrhea. Exam Narrative: AF 98.9 110/42 74 16 95% ra Gen - NARD Chest -
[2023-04-24 11:42] LABS: Glucose Point of Care 226 mg/dl (65-105)
[2023-04-24] MEDS: INSULIN ASPART (*BKC) 100 UNITS/ML SUB-Q (12:10)
[2023-04-24] MEDS: VITAMIN E 400 UNIT CAPSULE PO (14:13)
--- NOTE | 2023-04-24 14:47 | PCOTNOTE ---
A 2nd attempt was made to have pt participate in OT treatment. Pt states that he is in significant pain at his buttocks and cannot do anything right now. Pt was educated and encouraged to participate in any mobility tasks to increase skin integrity and strengthening. Pt continues to decline. Will continue per poc duration/frequency tomorrow.
[2023-04-24 16:43] LABS: Glucose Point of Care 154 mg/dl (65-105)
[2023-04-24] MEDS: APIXABAN 5 MG TABLET PO (17:31)
[2023-04-24] MEDS: oxyCODONE/ACETAMINOPHEN (*CRX) 5-325 MG TABLET 1 TABLET PO (17:35)
[2023-04-24 19:58] LABS: Glucose Point of Care 197 mg/dl (65-105)
[2023-04-25] VITALS (12 sets, daily range): BP systolic 99–110; BP diastolic 36–44; PULSE 48–60; RESP 14–18; TEMP 36.3–36.9; O2SAT 94–100
[2023-04-25 05:59] LABS: Basophils Percent Auto 0.3 % (0.2-1.2); Eosinophils Absolute Auto 0.1 K/mm3 (0-0.3); Eosinophils Percent Auto 0.8 % (0-4.4); Hematocrit 27.5 % (42.0-52.0); Hemoglobin 7.9 g/dL (14.0-18.0); Immature Granulocyte Absolute 0.05 K/mm3 (0.00-0.031); Immature Granulocyte Percent A 0.8 % (0-0.5); Lymphocytes Absolute Auto 1.43 K/mm3 (0.9-3.2); Lymphocytes Percent Auto 24.3 % (18.3-44.2); Mean Corpuscular HGB Conc 28.7 g/dl (32-36); Mean Corpuscular Hemoglobin 24.9 pg (26-34); Mean Corpuscular Volume 86.8 fl (80-100); Mean Platelet Volume 10.1 fl (7.4-10.4); Monocytes Absolute Auto 0.5 K/mm3 (0.1-0.6); Monocytes Percent Auto 9.2 % (2.6-8.5); Neutrophils Absolute Auto 3.8 K/mm3 (1.3-6.7); Neutrophils Percent Auto 64.6 % (45.5-73.1); Platelet Count Result 231 k/mm3 (150-375); Red Blood Count 3.17 M/mm3 (4.6-6.20); Red Cell Distribution Width 18.4 % (11.5-14.5); White Blood Count 5.9 K/mm3 (4.5-10.0)
[2023-04-25 06:15] LABS: Alanine Aminotransferase 10 U/L (6-50); Albumin Level 2.1 g/dL (3.5-5.1); Alkaline Phosphatase 92 U/L (38-126); Anion Gap 2 mmol/L (8-16); Aspartate Amino Transferase 14 U/L (17-59); Bilirubin,Total 0.3 mg/dL (0.2-1.3); Blood Urea Nitrogen 18 mg/dL (9-20); Calcium 7.2 mg/dL (8.4-10.2); Carbon Dioxide 26 mmol/L (22-30); Chloride 107 mmol/L (98-107); Estimated CRCL calculation 110 ml/min; Estimated Glomerular Filt Rate > 60; Glucose 154 mg/dL (65-110); Magnesium 1.8 mg/dL (1.6-2.3); Phosphorus 2.9 mg/dL (2.5-4.5); Potassium 4.5 mmol/L (3.4-5.0); Sodium 135 mmol/L (137-145)
[2023-04-25] MEDS: SALINE LOCK FLUSH 10 ML IV PUSH ×3 (06:25→20:26)
[2023-04-25 08:12] LABS: Glucose Point of Care 136 mg/dl (65-105)
[2023-04-25] MEDS: FINASTERIDE 5 MG TABLET PO (09:04)
[2023-04-25] MEDS: PREGABALIN (*CRX) 75 MG CAPSULE 150 MG PO (09:04)
[2023-04-25] MEDS: metFORMIN HCL XR 500 MG TAB.SR.24H 2000 MG PO (09:04)
[2023-04-25] MEDS: AMOXICILLIN/CLAVULANATE K 875-125 MG TAB 1 TABLET PO ×2 (09:04→20:24)
[2023-04-25] MEDS: OMEGA 3 POLYUNSAT FATTY ACIDS 1 GM CAP 4 GM PO (09:04)
[2023-04-25] MEDS: PANTOPRAZOLE 40 MG TABLET PO ×2 (09:04→16:47)
[2023-04-25] MEDS: DIGOXIN 250 MCG TABLET PO (09:05)
[2023-04-25] MEDS: MONTELUKAST SODIUM 10 MG TABLET PO (09:05)
[2023-04-25] MEDS: MIDODRINE HCL 10 MG TABLET PO ×3 (09:05→16:47)
[2023-04-25] MEDS: APIXABAN 5 MG TABLET PO ×2 (09:05→16:48)
[2023-04-25] MEDS: METOPROLOL TARTRATE 50 MG TAB PO (09:06)
[2023-04-25] MEDS: AMIODARONE HCL 200 MG TABLET PO (09:06)
[2023-04-25] MEDS: ASPIRIN 81 MG CHEWABLE TABLET PO (09:07)
[2023-04-25] MEDS: LIPASE/AMYLASE/PROTEASE 12,000 UNITS CAP 1 CAP PO ×3 (09:07→16:47)
[2023-04-25] MEDS: EMPAGLIFLOZIN 25 MG TABLET PO (09:07)
[2023-04-25] MEDS: PRAVASTATIN SODIUM 20 MG TABLET 40 MG PO (09:07)
[2023-04-25] MEDS: TAMSULOSIN HCL 0.4 MG CAPSULE PO (09:07)
[2023-04-25] MEDS: VITAMIN E 400 UNIT CAPSULE PO (09:07)
[2023-04-25] MEDS: MUPIROCIN 2% OINT 22 GM TUBE 1 APPLIC TOPICAL (09:09)
[2023-04-25] MEDS: TOLNAFTATE 1% POWDER 45 GM BTL 1 APPLIC TOPICAL ×2 (09:09→20:25)
[2023-04-25] MEDS: oxyCODONE/ACETAMINOPHEN (*CRX) 5-325 MG TABLET 1 TABLET PO (09:25)
[2023-04-25] MEDS: MULTIVITAMIN HEMATINIC (*BKC) TABLET 1 TABLET PO (09:26)
--- NOTE | 2023-04-25 10:08 | PM.IMPN ---
Progress Note: A&P Assessment and Plan (1) Sacral decubitus ulcer: Qualifiers: Pressure injury stage: unspecified pressure injury stage Qualified Code(s): L89.159 - Pressure ulcer of sacral region, unspecified stage Code(s): L89.159 - Pressure ulcer of sacral region, unspecified stage Status: Acute Assessment and Plan: The patient was a direct admit from [facility] for evaluation and treatment of worsening sacral decubitus ulcer. WBC normal and no fevers but was on IV abx on admission. Gen Surg consulted and felt the wound looked improved overall but did recommend debridement 04/09 and 04/13: BCx negative. 04/14: Zosyn started and stopped 04/20 after 7 days. Augmentin started 04/21 04/15: Sharp scalpel debridement of skin, subcutaneous tissue, muscle, fascia, periosteum, and bone from sacral decubitus ulcer with application of Axial Fill allograft and wound VAC performed 04/22: Patient underwent another sharp excisional scalpel debridement of skin, subcutaneous tissue, and muscle from stage IV sacral decubitus ulcer, placement of Axial Fill allograft and placement of wound VAC 04/22: CT A/P now showing sacral decubitus ulcer with erosions on bone c/w osteomyelitis. Continue wound vac. Wound vac off on 04/27 Continue current abx. Discharge planning in process. (2) Hypotension: Code(s): I95.9 - Hypotension, unspecified Status: Acute Assessment and Plan: Patient has low blood pressure felt acute/chronic. 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 Has low albumin which contributes to his HoTN. Encouraged oral intake. Supplements added. Was treated with IV fluids but off now. BP better Continue metoprolol with parameters. Check urine protein/Cr Monitor closely. (3) Atrial fibrillation: Code(s): I48.91 - Unspecified atrial fibrillation Status: Acute Assessment and Plan: Patient with chronic AFib. Rate controlled. Digoxin level 1.3. Continue Digoxin, Amiodarone and Metoprolol Continue Eliquis (4) Type 2 diabetes mellitus: Code(s): E11.9 - Type 2 diabetes mellitus without complications Status: Acute Assessment and Plan: A1c 7.3. The patient's blood glucose was reviewed on 04/25 Glucose mostly well controlled Continue AccuCheks covering with sliding scale.? Hypoglycemia protocol available as needed.? Diabetic diet. Continue to monitor (5) Severe malnutrition: Code(s): E43 - Unspecified severe protein-calorie malnutrition Status: Acute Assessment and Plan: Patient with severe malnutrition related to inadequate protein energy intake with increased protein energy needs in the setting of chronic disease with diabetes and stage IV sacral decubitus ulcer as evidenced by severe muscle loss noted in the following areas:? Temporalis and clavicular region as well as weight loss of 24 lb prior to admission. Supplements added. Vit D very low despite being on replacement. Vit A/E low but fecal fat okay. CT February showing atrophic pancreas. Abd MRI Mar 2022 showing chronic pancreatitis. Consider malabsorption. Continue Creon.?Continue Vit E and MVI (6) Retention of urine: Code(s): R33.9 - Retention of urine, unspecified Status: Acute Assessment and Plan: Patient with chronic Whyte. He developed hematuria. UCx negative 04/20 and 04/22 Urology consulted and appreciate their recommendations CT scan showing Bilateral pyelitis. Noncalcified filling defects in the proximal ureters may be hematoma. Urology following Hematuria resolved. Discussed with urology who felt okay to resume Eliquis. Urine cloudy but no hematuria. Monitor for re-bleeding Rocephin started 04/22 by Urology. Stop Rocephin? (7) Hematuria: Code(s): R31.9 - Hematuria, unspecified Status: Acute Assessment and Plan: As above Plan DVT Prophylaxis - Eliquis Code status - Full Subjective Date/randell
[2023-04-25 11:53] LABS: Glucose Point of Care 151 mg/dl (65-105)
[2023-04-25 11:57] LABS: Creatinine Urine 22.3 mg/dL; Total Protein Urine Random 108 mg/dL; Ur Ttl Prot Creatinine Ratio 4.84 mg/mg (0-0.20)
--- NOTE | 2023-04-25 14:52 | PC.NURSE ---
Assessments per Yamilex Vargas/student nurse/[facility] reviewed. Agree with same. Yamilex will continue purposeful rounding and report off to assigned RN at end of clinical day.
--- NOTE | 2023-04-25 14:53 | PM.PNGS ---
Progress Note: A&P Assessment and Plan (1) Decubitus ulcer: Code(s): L89.90 - Pressure ulcer of unspecified site, unspecified stage Status: Acute Assessment and Plan: Patient is surgically stable. Wound VAC in place and functioning well. Plan to change wound VAC Tuesday. Continue supportive management. Plan I have discussed the patient's case and plan of care with Dr. Mendoza. Subjective Subjective Date/Time Seen: 04/25/23 10:53 Patient reports: no new complaints and afebrile Exam Narrative: Sacral wound VAC in place and functioning well with old bloody drainage in the wound VAC canister. Objective Data Vital Signs Vital Signs: Vital Signs - 24 hr 04/24/23 15:35 04/24/23 17:32 04/24/23 20:00 Temperature 98.1 F 97.7 F Pulse Rate 54 L 54 L 52 L Respiratory Rate 18 14 Blood Pressure 110/42 L 118/52 L Pulse Oximetry 98 98 Oxygen Delivery 04/24/23 20:00 04/24/23 23:43 04/25/23 04:00 Temperature 97.4 F L 97.6 F Pulse Rate 70 51 L 48 L Respiratory Rate 16 14 14 Blood Pressure 100/40 L 99/36 L Pulse Oximetry 99 100 94 Oxygen Delivery Room Air 04/25/23 08:28 04/25/23 07:05 04/25/23 09:05 Temperature 97.4 F L Pulse Rate 55 L 60 Respiratory Rate 14 16 Blood Pressure 102/37 L Pulse Oximetry 94 98 Oxygen Delivery Room Air 04/25/23 09:06 04/25/23 09:06 04/25/23 10:00 Temperature 98.0 F Pulse Rate 60 60 58 L Respiratory Rate 18 Blood Pressure 110/44 L Pulse Oximetry 100 Oxygen Delivery Intake/Output Intake/Output: Intake & Output 04/22/23 04/23/23 04/24/23 04/25/23 23:59 23:59 23:59 23:59 Intake Total 3090 2790 3190 2050 Output Total 3800 3050 3600 2100 Balance -710 -260 -410 -50 Meds/Results Medications: Active Medications Generic Name Dose Route Start Last Admin Trade Name Freq PRN Reason Stop Dose Admin Acetaminophen 650 mg 04/13/23 21:22 04/21/23 18:33 Acetaminophen 325 Mg Tablet PO 650 mg Q6H PRN Administration Mild Pain (1-3) Or Fever Amiodarone HCl 200 mg 04/14/23 08:00 04/25/23 09:06 Amiodarone Hcl 200 Mg Tablet PO 200 mg DAILY@0800 YESSICA Administration Amoxicillin/Clavulanate Potassium 1 tablet 04/21/23 12:00 04/25/23 09:04 Amoxicillin/Clavulanate K 875-125 Mg Tab PO 04/29/23 23:59 1 tablet Q12HR YESSICA Administration Lipase/Protease/Amylase 1 cap 04/17/23 12:00 04/25/23 11:59 Lipase/Amylase/Protease 12,000 Units Cap PO 1 cap TIDWM YESSICA Administration Apixaban 5 mg 04/15/23 17:00 04/25/23 09:05 Apixaban 5 Mg Tablet PO 5 mg BID YESSICA Administration Aspirin 81 mg 04/14/23 08:00 04/25/23 09:07 Aspirin 81 Mg Chewable Tablet PO 81 mg DAILY@0800 YESSICA Administration Bisacodyl 5 mg 04/13/23 21:22 Bisacodyl 5 Mg Tablet Ec PO QAM PRN Constipation Dextrose 12.5 gm 04/13/23 15:33 Dextrose 50% 25 Gm/50 Ml Syringe IV PUSH PRN PRN Hypoglycemia Protocol Digoxin 250 mcg 04/14/23 09:00 04/25/23 09:05 Digoxin 250 Mcg Tablet PO 250 mcg QAM YESSICA Administration Empagliflozin 25 mg 04/14/23 09:00 04/25/23 09:07 Empagliflozin 25 Mg Tablet PO 25 mg DAILY YESSICA Administration Ergocalciferol 50,000 units 04/26/23 09:00 Ergocalciferol 50,000 Units Capsule PO [facility] Finasteride 5 mg 04/14/23 09:00 04/25/23 09:04 Finasteride 5 Mg Tablet PO 5 mg QAM YESSICA Administration Fish Oil 4 gm 04/14/23 09:00 04/25/23 09:04 [place] 3 Polyunsat Fatty Acids 1 Gm Cap PO 4 gm DAILY YESSICA Administration Glucagon 1 mg 04/13/23 15:33 Glucagon For Inj 1 Mg Vial IM PRN PRN Hypoglycemia Protocol Glucose 15 gm 04/13/23 15:33 Glucose Oral Gel 15 Gm Of Glucse In 37.5 Gm Tube PO PRN PRN Hypoglycemia Protocol Dextrose 1,000 mls @ 100 mls/hr 04/13/23 15:33 Dextrose 5% 1,000 Ml IVPB PRN PRN Hypoglycemia Protocol Ceftriaxone Sodium 1 gm in 50 ml
[2023-04-25 17:01] LABS: Glucose Point of Care 142 mg/dl (65-105)
[2023-04-25 21:08] LABS: Glucose Point of Care 169 mg/dl (65-105)
[2023-04-26] VITALS (9 sets, daily range): BP systolic 102–140; BP diastolic 40–60; PULSE 50–60; RESP 16–18; TEMP 36.3–36.6; O2SAT 97–99
[2023-04-26] MEDS: oxyCODONE/ACETAMINOPHEN (*CRX) 5-325 MG TABLET 1 TABLET PO ×3 (01:48→16:13)
[2023-04-26] MEDS: SALINE LOCK FLUSH 10 ML IV PUSH ×3 (05:45→20:54)
--- NOTE | 2023-04-26 06:55 | PC.NURSE ---
Documentation for night 04/25 by Tab De La Cruz reviewed by this nurse.
[2023-04-26 08:21] LABS: Glucose Point of Care 198 mg/dl (65-105)
[2023-04-26] MEDS: OMEGA 3 POLYUNSAT FATTY ACIDS 1 GM CAP 4 GM PO (08:21)
[2023-04-26] MEDS: ASPIRIN 81 MG CHEWABLE TABLET PO (08:22)
[2023-04-26] MEDS: VITAMIN E 400 UNIT CAPSULE PO (08:22)
[2023-04-26] MEDS: PREGABALIN (*CRX) 75 MG CAPSULE 150 MG PO (08:22)
[2023-04-26] MEDS: PRAVASTATIN SODIUM 20 MG TABLET 40 MG PO (08:23)
[2023-04-26] MEDS: LIPASE/AMYLASE/PROTEASE 12,000 UNITS CAP 1 CAP PO ×3 (08:23→16:14)
[2023-04-26] MEDS: FINASTERIDE 5 MG TABLET PO (08:23)
[2023-04-26] MEDS: MONTELUKAST SODIUM 10 MG TABLET PO (08:23)
[2023-04-26] MEDS: metFORMIN HCL XR 500 MG TAB.SR.24H 2000 MG PO (08:23)
[2023-04-26] MEDS: MULTIVITAMIN HEMATINIC (*BKC) TABLET 1 TABLET PO (08:24)
[2023-04-26] MEDS: MIDODRINE HCL 10 MG TABLET PO ×3 (08:24→16:14)
[2023-04-26] MEDS: ERGOCALCIFEROL 50,000 UNITS CAPSULE 50000 UNITS PO (08:24)
[2023-04-26] MEDS: PANTOPRAZOLE 40 MG TABLET PO ×2 (08:25→16:14)
[2023-04-26] MEDS: TAMSULOSIN HCL 0.4 MG CAPSULE PO (08:25)
[2023-04-26] MEDS: AMOXICILLIN/CLAVULANATE K 875-125 MG TAB 1 TABLET PO ×2 (08:25→20:53)
[2023-04-26] MEDS: EMPAGLIFLOZIN 25 MG TABLET PO (08:25)
[2023-04-26] MEDS: APIXABAN 5 MG TABLET PO ×2 (08:25→16:14)
[2023-04-26] MEDS: MUPIROCIN 2% OINT 22 GM TUBE 1 APPLIC TOPICAL (08:26)
[2023-04-26] MEDS: TOLNAFTATE 1% POWDER 45 GM BTL 1 APPLIC TOPICAL ×2 (08:27→20:53)
[2023-04-26] MEDS: AMIODARONE HCL 200 MG TABLET PO (08:29)
[2023-04-26] MEDS: DIGOXIN 250 MCG TABLET PO (08:29)
[2023-04-26] MEDS: METOPROLOL TARTRATE 50 MG TAB PO ×2 (08:36→16:14)
--- NOTE | 2023-04-26 10:45 | PCNFU ---
Nutrition Follow-Up Complete: Severe malnutrition related to inadequate protein-energy intake with increased protein-energy needs in setting of chronic disease or condition (stage IV sacral decubitus ulcer/diabetes) as evidenced by severe muscle loss noted in the following areas: temporalis/clavicle region and weight loss of 24 lbs (12%) [employer] per patient reported UBW (200 lbs). Goal: 1. Patient will consume at least 75% of 2-3 meals and supplements daily. 2. Patient weight will remain at or above current weight of 80.4 kg through follow-up. Patient is progressing towards goal. We will continue current goal. Pt current nutrition is DBCC. Last recorded weight is 78.1 kg, down from 80.4 kg on admit. Bowel Motility:+Bm reported 04/26 Labs Reviewed:Glu 154, Cr 0.6,Na 135, Hct 27.9,Hgb 7.9 Meds Noted:Januvia, Miralax, NovoLog, Glucophage, MVI Skin: Stage IV pressure ulcer-saccum. Would vac in place. Additional Notes: Patient remains on a DBCC diet. Oral Intake has been good 80-100% of meals. Plans for wound vac change tomorrow 04/27. Glucerna shakes BID for additional 220 kcals and 10 gms protein for wound healing. Agree with diet orders. Will monitor PO intake, labs, weight and wound status every 7 days.
--- NOTE | 2023-04-26 11:19 | PCOTNOTE ---
Attempted to see Patient at this time. Patient just finishing with getting cleaned-up from an incontinent accident. Patient verbalized having increased pain , can not tolerate at this time. Patient declined all activity.
[2023-04-26] MEDS: traMADol HCL (*CRX) 25 MG TABLET PO (11:53)
[2023-04-26 12:04] LABS: Glucose Point of Care 173 mg/dl (65-105)
--- NOTE | 2023-04-26 15:05 | PM.PNGS ---
Progress Note: A&P Assessment and Plan (1) Decubitus ulcer: Code(s): L89.90 - Pressure ulcer of unspecified site, unspecified stage Status: Acute Assessment and Plan: Patient is surgically stable. Wound VAC in place and functioning well. Plan to change wound VAC tomorrow. Continue supportive management. Plan I have discussed the patient's case and plan of care with Dr. Mendoza. Subjective Subjective Date/Time Seen: 04/26/23 10:05 Patient reports: afebrile Interval history: Patient doing well today with no specific complaints. Wound VAC functioning well without any issues. Exam Narrative: Sacral wound VAC in place and functioning well with old bloody drainage in the wound VAC canister. Objective Data Vital Signs Vital Signs: Vital Signs - 24 hr 04/25/23 15:10 04/25/23 16:49 04/25/23 17:11 Temperature 97.4 F L Pulse Rate 49 L 52 L 52 L Respiratory Rate 18 Blood Pressure 110/44 L Pulse Oximetry 100 100 Oxygen Delivery Room Air 04/25/23 19:51 04/25/23 20:00 04/25/23 20:45 Temperature 98.3 F 98.4 F Pulse Rate 50 L 50 L Respiratory Rate 16 16 Blood Pressure 104/40 L 104/40 L Pulse Oximetry 100 100 Oxygen Delivery Room Air 04/26/23 00:12 04/26/23 03:43 04/26/23 08:29 Temperature 97.7 F 97.3 F L Pulse Rate 57 L 56 L 60 Respiratory Rate 16 18 Blood Pressure 111/44 L 103/40 L Pulse Oximetry 97 97 Oxygen Delivery 04/26/23 08:29 04/26/23 08:35 04/26/23 08:36 Temperature Pulse Rate 60 60 60 Respiratory Rate 18 Blood Pressure 116/56 L Pulse Oximetry Oxygen Delivery 04/26/23 08:29 04/26/23 13:56 Temperature 97.4 F L Pulse Rate 60 50 L Respiratory Rate 18 18 Blood Pressure 140/60 Pulse Oximetry 97 99 Oxygen Delivery Room Air Intake/Output Intake/Output: Intake & Output 04/23/23 04/24/23 04/25/23 04/26/23 23:59 23:59 23:59 23:59 Intake Total 2790 3190 2530 1130 Output Total 3050 3600 2550 2751 Balance -260 -996 -63 -5508 Meds/Results Medications: Active Medications Generic Name Dose Route Start Last Admin Trade Name [place] PRN Reason Stop Dose Admin Acetaminophen 650 mg 04/13/23 21:22 04/21/23 18:33 Acetaminophen 325 Mg Tablet PO 650 mg Q6H PRN Administration Mild Pain (1-3) Or Fever Amiodarone HCl 200 mg 04/14/23 08:00 04/26/23 08:29 Amiodarone Hcl 200 Mg Tablet PO 200 mg DAILY@0800 YESSICA Administration Amoxicillin/Clavulanate Potassium 1 tablet 04/21/23 12:00 04/26/23 08:25 Amoxicillin/Clavulanate K 875-125 Mg Tab PO 04/29/23 23:59 1 tablet Q12HR YESSICA Administration Lipase/Protease/Amylase 1 cap 04/17/23 12:00 04/26/23 11:54 Lipase/Amylase/Protease 12,000 Units Cap PO 1 cap TIDWM YESSICA Administration Apixaban 5 mg 04/15/23 17:00 04/26/23 08:25 Apixaban 5 Mg Tablet PO 5 mg BID YESSICA Administration Aspirin 81 mg 04/14/23 08:00 04/26/23 08:22 Aspirin 81 Mg Chewable Tablet PO 81 mg DAILY@0800 YESSICA Administration Bisacodyl 5 mg 04/13/23 21:22 Bisacodyl 5 Mg Tablet Ec PO QAM PRN Constipation Dextrose 12.5 gm 04/13/23 15:33 Dextrose 50% 25 Gm/50 Ml Syringe IV PUSH PRN PRN Hypoglycemia Protocol Digoxin 250 mcg 04/14/23 09:00 04/26/23 08:29 Digoxin 250 Mcg Tablet PO 250 mcg QAM YESSICA Administration Empagliflozin 25 mg 04/14/23 09:00 04/26/23 08:25 Empagliflozin 25 Mg Tablet PO 25 mg DAILY YESSICA Administration Ergocalciferol 50,000 units 04/26/23 09:00 04/26/23 08:24 Ergocalciferol 50,000 Units Capsule PO 50,000 units WEEKLY YESSICA Administration Finasteride 5 mg 04/14/23 09:00 04/26/23 08:23 Finasteride 5 Mg Tablet PO 5 mg QAM YESSICA Administration Fish Oil 4 gm 04/14/23 09:00 04/26/23 08:21 [place] 3 Polyunsat Fatty Acids 1 Gm Cap PO 4 gm DAILY YESSICA Administration Glucagon 1 mg 04/13/23 15:33 Glucagon For Inj 1 Mg Vial IM PRN PRN Hypoglycemia P
--- NOTE | 2023-04-26 15:13 | PC.NURSE ---
On 04/26/23, the student, [Cesar Wallace], provided care and completed [facility] documentation on this patient. I have reviewed the student's documentation and agree with the findings.
--- NOTE | 2023-04-26 16:41 | PM.IMPN ---
Progress Note: A&P Assessment and Plan (1) Sacral decubitus ulcer: Qualifiers: Pressure injury stage: unspecified pressure injury stage Qualified Code(s): L89.159 - Pressure ulcer of sacral region, unspecified stage Code(s): L89.159 - Pressure ulcer of sacral region, unspecified stage Status: Acute Assessment and Plan: The patient was a direct admit from [facility] for evaluation and treatment of worsening sacral decubitus ulcer. WBC normal and no fevers but was on IV abx on admission. Gen Surg consulted and felt the wound looked improved overall but did recommend debridement 04/09 and 04/13: BCx negative. 04/14: Zosyn started and stopped 04/20 after 7 days. Augmentin started 04/21 04/15: Sharp scalpel debridement of skin, subcutaneous tissue, muscle, fascia, periosteum, and bone from sacral decubitus ulcer with application of Axial Fill allograft and wound VAC performed 04/22: Patient underwent another sharp excisional scalpel debridement of skin, subcutaneous tissue, and muscle from stage IV sacral decubitus ulcer, placement of Axial Fill allograft and placement of wound VAC 04/22: CT A/P now showing sacral decubitus ulcer with erosions on bone c/w osteomyelitis. Continue wound vac. Wound vac off on 04/27 Continue current abx. (2) Hypotension: Code(s): I95.9 - Hypotension, unspecified Status: Acute Assessment and Plan: Patient has low blood pressure felt acute/chronic. 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 Has low albumin which contributes to his HoTN. Encourage oral intake. Supplements added. Was treated with IV fluids but off now. BP better. Has nephrotic range proteinuria. Continue metoprolol with parameters. Monitor closely. (3) Atrial fibrillation: Code(s): I48.91 - Unspecified atrial fibrillation Status: Acute Assessment and Plan: Patient with chronic AFib. Rate controlled. Digoxin level 1.3. Continue Digoxin, Amiodarone and Metoprolol Continue Eliquis (4) Type 2 diabetes mellitus: Code(s): E11.9 - Type 2 diabetes mellitus without complications Status: Acute Assessment and Plan: A1c 7.3. The patient's blood glucose was reviewed on 04/26 Glucose mostly well controlled Continue AccuCheks covering with sliding scale.? Hypoglycemia protocol available as needed.? Diabetic diet. Continue to monitor (5) Severe malnutrition: Code(s): E43 - Unspecified severe protein-calorie malnutrition Status: Acute Assessment and Plan: Patient with severe malnutrition related to inadequate protein energy intake with increased protein energy needs in the setting of chronic disease with diabetes and stage IV sacral decubitus ulcer as evidenced by severe muscle loss noted in the following areas:? Temporalis and clavicular region as well as weight loss of 24 lb prior to admission. Supplements added. Vit D very low despite being on replacement. Vit A/E low but fecal fat okay. CT February showing atrophic pancreas. Abd MRI Mar 2022 showing chronic pancreatitis. Consider malabsorption. Continue Creon.?Continue Vit E and MVI. Albumin low also from nephrotic range proteinuria. (6) Retention of urine: Code(s): R33.9 - Retention of urine, unspecified Status: Acute Assessment and Plan: Patient with chronic Whyte. He developed hematuria. UCx negative 04/20 and 04/22 Urology consulted and appreciate their recommendations CT scan showing Bilateral pyelitis. Noncalcified filling defects in the proximal ureters may be hematoma. Urology following Hematuria resolved. Discussed with urology who felt okay to resume Eliquis. Urine cloudy but no hematuria. Monitor for re-bleeding Rocephin started 04/22 by Urology. Stop Rocephin since on Augmentin (7) Hematuria: Code(s): R31.9 - Hematuria, unspecified Status: Acute Assessment and Plan: As above (8) Proteinuria: Code(s
[2023-04-26 16:45] LABS: Glucose Point of Care 171 mg/dl (65-105)
[2023-04-26] MEDS: INSULIN ASPART (*BKC) 100 UNITS/ML SUB-Q (20:52)
[2023-04-26 21:28] LABS: Glucose Point of Care 203 mg/dl (65-105)
[2023-04-27 00:17] VITALS: BP 109/41; PULSE 53; RESP 18; TEMP 36.6; O2SAT 100
[2023-04-27 05:02] VITALS: BP 122/47; PULSE 68; RESP 16; TEMP 37.2; O2SAT 98
--- NOTE | 2023-04-27 05:20 | PC.NURSE ---
Documentation for night 04/26 by Tab De La Cruz reviewed by this nurse.
[2023-04-27] MEDS: SALINE LOCK FLUSH 10 ML IV PUSH ×2 (05:30→13:15)
[2023-04-27 06:08] LABS: Basophils Percent Auto 0.1 % (0.2-1.2); Eosinophils Percent Auto 0.3 % (0-4.4); Hematocrit 32.6 % (42.0-52.0); Hemoglobin 9.6 g/dL (14.0-18.0); Immature Granulocyte Absolute 0.06 K/mm3 (0.00-0.031); Immature Granulocyte Percent A 0.7 % (0-0.5); Lymphocytes Absolute Auto 1.35 K/mm3 (0.9-3.2); Lymphocytes Percent Auto 15.7 % (18.3-44.2); Mean Corpuscular HGB Conc 29.4 g/dl (32-36); Mean Corpuscular Hemoglobin 25.7 pg (26-34); Mean Corpuscular Volume 87.2 fl (80-100); Mean Platelet Volume 9.9 fl (7.4-10.4); Monocytes Absolute Auto 0.4 K/mm3 (0.1-0.6); Monocytes Percent Auto 4.1 % (2.6-8.5); Neutrophils Absolute Auto 6.8 K/mm3 (1.3-6.7); Neutrophils Percent Auto 79.1 % (45.5-73.1); Platelet Count Result 270 k/mm3 (150-375); Red Blood Count 3.74 M/mm3 (4.6-6.20); White Blood Count 8.6 K/mm3 (4.5-10.0)
[2023-04-27 06:19] LABS: Alanine Aminotransferase 11 U/L (6-50); Albumin Level 2.4 g/dL (3.5-5.1); Alkaline Phosphatase 116 U/L (38-126); Anion Gap 7 mmol/L (8-16); Aspartate Amino Transferase 20 U/L (17-59); Bilirubin,Total 0.3 mg/dL (0.2-1.3); Blood Urea Nitrogen 13 mg/dL (9-20); Calcium 7.5 mg/dL (8.4-10.2); Carbon Dioxide 23 mmol/L (22-30); Chloride 106 mmol/L (98-107); Estimated CRCL calculation 105 ml/min; Estimated Glomerular Filt Rate > 60; Glucose 191 mg/dL (65-110); Magnesium 1.6 mg/dL (1.6-2.3); Phosphorus 2.9 mg/dL (2.5-4.5); Potassium 4.6 mmol/L (3.4-5.0); Sodium 136 mmol/L (137-145)
[2023-04-27 06:59] LABS: HIV 1/2 Ab P24 Ag Result Negative (Negative)
[2023-04-27 07:14] LABS: Immunoglobulin A 628 mg/dL (70-400); Immunoglobulin G 1535 mg/dL (700-1600); Immunoglobulin M 29 mg/dL (40-230)
[2023-04-27 07:15] LABS: Hepatitis B Surface Antigen Negative (Negative)
[2023-04-27 07:23] LABS: Hypochromasia 2+ (NORMAL); Platelet Estimate Adequate (Adequate); Schistocytes None Seen (NORMAL)
[2023-04-27 07:24] LABS: HAV RESULT Negative (Negative); Hepatitis B Core IgM Result Negative (Negative)
[2023-04-27 07:32] LABS: Hepatitis C Virus Antibody Negative (Negative)
[2023-04-27 08:22] LABS: Glucose Point of Care 176 mg/dl (65-105)
[2023-04-27 08:50] VITALS: BP 116/42; PULSE 65; RESP 16; O2SAT 96
[2023-04-27] MEDS: oxyCODONE/ACETAMINOPHEN (*CRX) 5-325 MG TABLET 1 TABLET PO ×2 (08:56→14:44)
[2023-04-27] MEDS: LIPASE/AMYLASE/PROTEASE 12,000 UNITS CAP 1 CAP PO ×3 (08:57→17:32)
[2023-04-27] MEDS: METOPROLOL TARTRATE 50 MG TAB PO (08:58)
[2023-04-27] MEDS: MONTELUKAST SODIUM 10 MG TABLET PO (08:58)
[2023-04-27] MEDS: EMPAGLIFLOZIN 25 MG TABLET PO (08:58)
[2023-04-27] MEDS: FINASTERIDE 5 MG TABLET PO (08:58)
[2023-04-27] MEDS: PREGABALIN (*CRX) 75 MG CAPSULE 150 MG PO (08:58)
[2023-04-27] MEDS: ASPIRIN 81 MG CHEWABLE TABLET PO (08:58)
[2023-04-27] MEDS: MIDODRINE HCL 10 MG TABLET PO ×3 (08:58→17:32)
[2023-04-27] MEDS: AMOXICILLIN/CLAVULANATE K 875-125 MG TAB 1 TABLET PO (08:58)
[2023-04-27] MEDS: PANTOPRAZOLE 40 MG TABLET PO ×2 (08:58→17:32)
[2023-04-27] MEDS: OMEGA 3 POLYUNSAT FATTY ACIDS 1 GM CAP 4 GM PO (08:58)
[2023-04-27] MEDS: metFORMIN HCL XR 500 MG TAB.SR.24H 2000 MG PO (08:59)
[2023-04-27] MEDS: TAMSULOSIN HCL 0.4 MG CAPSULE PO (08:59)
[2023-04-27] MEDS: VITAMIN E 400 UNIT CAPSULE PO (08:59)
[2023-04-27] MEDS: APIXABAN 5 MG TABLET PO ×2 (08:59→17:32)
[2023-04-27] MEDS: AMIODARONE HCL 200 MG TABLET PO (08:59)
[2023-04-27] MEDS: MULTIVITAMIN HEMATINIC (*BKC) TABLET 1 TABLET PO (08:59)
[2023-04-27] MEDS: DIGOXIN 250 MCG TABLET PO (08:59)
[2023-04-27] MEDS: MUPIROCIN 2% OINT 22 GM TUBE 1 APPLIC TOPICAL (09:00)
[2023-04-27] MEDS: TOLNAFTATE 1% POWDER 45 GM BTL 1 APPLIC TOPICAL (09:00)
[2023-04-27] MEDS: PRAVASTATIN SODIUM 20 MG TABLET 40 MG PO (09:00)
--- NOTE | 2023-04-27 10:43 | PM.PNGS ---
Progress Note: A&P Assessment and Plan (1) Decubitus ulcer: Code(s): L89.90 - Pressure ulcer of unspecified site, unspecified stage Status: Acute Assessment and Plan: The stage IV sacral decubitus ulcer is slowly getting a granulation base. I think he be discharged to the half-way facility today. I would prefer that a [facility] wound VAC be placed however that may not be possible at the half-way facility if they require different wound VAC. If at all possible if the patient can be brought to the wound care clinic twice a week changing of wound VAC and assessment of the wound I think that would be optimal. If he gets a much better granulation base then perhaps outpatient debridements and application of additional allografts can ultimately help this large decubitus wound heal. We will plan on seeing him back in the Wound Care Clinic in 1 week if he cannot be brought twice a week for wound VAC changes. Subjective Subjective Date/Time Seen: 04/27/23 10:43 Interval history: Patient has been clinically stable. Wound VAC on the sacral decubitus wound was removed at the bedside today. Exam Skin: Other: Stage IV sacral decubitus wound is clean. Minimal necrotic tissue. There is about 50% granulation of the base of the wound. The wound now measures 13.5cm in vertical length by 17cm horizontal with 1.9cm in depth. Objective Data Vital Signs Vital Signs: Vital Signs - 24 hr 04/26/23 13:56 04/26/23 16:14 04/26/23 19:00 Temperature 36.3 C L 36.6 C Pulse Rate 50 L 60 50 L Respiratory Rate 18 16 Blood Pressure 140/60 104/42 L Pulse Oximetry 99 99 Oxygen Delivery 04/26/23 20:16 04/26/23 20:00 04/27/23 00:17 Temperature 36.6 C 36.6 C Pulse Rate 50 L 53 L Respiratory Rate 18 18 Blood Pressure 102/42 L 109/41 L Pulse Oximetry 99 100 Oxygen Delivery Room Air 04/27/23 05:02 04/27/23 08:50 Temperature 37.2 C Pulse Rate 68 65 Respiratory Rate 16 16 Blood Pressure 122/47 L 116/42 L Pulse Oximetry 98 96 Oxygen Delivery Intake/Output Intake/Output: Intake & Output 04/24/23 04/25/23 04/26/23 04/27/23 23:59 23:59 23:59 23:59 Intake Total 3190 2530 1610 90 Output Total 0150 7613 8163 8686 [facility] -531 -11 -2141 -4140 Meds/Results Medications: Active Medications Generic Name Dose Route Start Last Admin Trade Name Freq PRN Reason Stop Dose Admin Acetaminophen 650 mg 04/13/23 21:22 04/21/23 18:33 Acetaminophen 325 Mg Tablet PO 650 mg Q6H PRN Administration Mild Pain (1-3) Or Fever Amiodarone HCl 200 mg 04/14/23 08:00 04/27/23 08:59 Amiodarone Hcl 200 Mg Tablet PO 200 mg DAILY@0800 YESSICA Administration Amoxicillin/Clavulanate Potassium 1 tablet 04/21/23 12:00 04/27/23 08:58 Amoxicillin/Clavulanate K 875-125 Mg Tab PO 04/29/23 23:59 1 tablet Q12HR YESSICA Administration Lipase/Protease/Amylase 1 cap 04/17/23 12:00 04/27/23 08:57 Lipase/Amylase/Protease 12,000 Units Cap PO 1 cap TIDWM YESSICA Administration Apixaban 5 mg 04/15/23 17:00 04/27/23 08:59 Apixaban 5 Mg Tablet PO 5 mg BID YESSICA Administration Aspirin 81 mg 04/14/23 08:00 04/27/23 08:58 Aspirin 81 Mg Chewable Tablet PO 81 mg DAILY@0800 YESSICA Administration Bisacodyl 5 mg 04/13/23 21:22 Bisacodyl 5 Mg Tablet Ec PO QAM PRN Constipation Dextrose 12.5 gm 04/13/23 15:33 Dextrose 50% 25 Gm/50 Ml Syringe IV PUSH PRN PRN Hypoglycemia Protocol Digoxin 250 mcg 04/14/23 09:00 04/27/23 08:59 Digoxin 250 Mcg Tablet PO 250 mcg QAM YESSICA Administration Empagliflozin 25 mg 04/14/23 09:00 04/27/23 08:58 Empagliflozin 25 Mg Tablet PO 25 mg DAILY YSESICA Administration Ergocalciferol 50,000 units 04/26/23 09:00 04/26/23 08:24 Ergocalciferol 50,000 Units Capsule PO 50,000 units WEEKLY YESSICA Administration Finasteride 5 mg 04/14/23 09:00 04/27/23 08:58 Finasteride 5 Mg Tablet PO
[2023-04-27] MEDS: lisinopriL 5 MG TABLET PO (10:55)
[2023-04-27 12:13] LABS: Glucose Point of Care 160 mg/dl (65-105)
--- NOTE | 2023-04-27 12:42 | PM.DS ---
DS: Admitting Diagnosis Discharge Date 04/27/23 Admitting Diagnosis Worsening sacral decubitus ulcer DS: Discharge Diagnosis Discharge Diagnosis (1) Sacral decubitus ulcer: Qualifiers: Pressure injury stage: unspecified pressure injury stage Qualified Code(s): L89.159 - Pressure ulcer of sacral region, unspecified stage Code(s): L89.159 - Pressure ulcer of sacral region, unspecified stage Status: Acute (2) Hypotension: Code(s): I95.9 - Hypotension, unspecified Status: Acute (3) Atrial fibrillation: Code(s): I48.91 - Unspecified atrial fibrillation Status: Acute (4) Type 2 diabetes mellitus: Code(s): E11.9 - Type 2 diabetes mellitus without complications Status: Acute (5) Severe malnutrition: Code(s): E43 - Unspecified severe protein-calorie malnutrition Status: Acute (6) Retention of urine: Code(s): R33.9 - Retention of urine, unspecified Status: Acute (7) Hematuria: Code(s): R31.9 - Hematuria, unspecified Status: Acute (8) Proteinuria: Code(s): R80.9 - Proteinuria, unspecified Status: Acute DS: Summary Hospital Course Reason for hospitalization: 73yo male with hx of DVT, DM, HTN and pAFib here for worsening sacral decubitus ulcer. Please see H&P for details. Hospital Course: The patient was a direct admit from [facility] for evaluation and treatment of worsening sacral decubitus ulcer. WBC normal and no fevers but was on IV abx on admission. Gen Surg was consulted and felt the wound looked improved overall but did recommend debridement. BCx 04/09 and 04/13 were negative. Zosyn started and stopped 04/20 after 7 days. Augmentin started 04/21 with plans to treat through 04/29. Patient underwent debridement on 04/15 with sharp scalpel debridement of skin, subcutaneous tissue, muscle, fascia, periosteum, and bone from sacral decubitus ulcer with application of Axial Fill allograft and wound VAC placed. He underwent repeat debridement on 04/22 with another sharp excisional scalpel debridement of skin, subcutaneous tissue, and muscle from stage IV sacral decubitus ulcer, placement of Axial Fill allograft and placement of wound VAC. CT Abd/pelvis on 04/22 showing sacral decubitus ulcer with erosions on bone c/w osteomyelitis. Plan to continue wound vac at the custodial. Patient found to have low blood pressure felt acute/chronic. Acute process related to above but also has chronic HoTN on scheduled Midodrine. Midodrine continued. He has low albumin chronically which contributes to his HoTN. Patient with nephrotic range proteinuria. Etiology unclear. ENOC inhibitor added as BP tolerates. Workup started. Patient with chronic AFib. Rate remained well controlled. Digoxin level 1.3. We continued Digoxin, Amiodarone and Metoprolol. We continued his Eliquis. Patient with severe malnutrition related to inadequate protein energy intake with increased protein energy needs in the setting of chronic disease with diabetes and stage IV sacral decubitus ulcer as evidenced by severe muscle loss noted in the following areas:? Temporalis and clavicular region as well as weight loss of 24 lb prior to admission. Supplements added. Vit D very low despite being on replacement. Vit A/E low but fecal fat okay. CT February showing atrophic pancreas. Abd MRI Mar 2022 showing chronic pancreatitis. Consider malabsorption. Creon added.?Patient with chronic Whyte for urine retention. He developed hematuria. UCx negative 04/20 and 04/22. Urology consulted and appreciate their recommendations. CT scan showing?Bilateral pyelitis. Noncalcified filling defects in the proximal ureters may be hematoma. Hematuria resolved. Patient overall did well and was able to be discharged back to the custodial. Status at Discharge Cognitive/behavioral status at discharge: stable Time Spent with Patient Time attestation: Total time spent providing and/or coordinating discharge servic
[2023-04-27 14:57] VITALS: BP 102/50
[2023-04-27 16:07] LABS: SARS-CoV-2 RNA PCR Negative (Negative)
[2023-04-27 17:37] VITALS: BP 100/38; PULSE 50; RESP 18; TEMP 36.2; O2SAT 100
[2023-04-27 17:47] LABS: Glucose Point of Care 178 mg/dl (65-105)
[2023-04-30 18:20] LABS: Albumin 2.2 g/dL (3.8-4.8); Alpha 1 Globulin 0.5 g/dL (0.2-0.3); Alpha 2 Globulin 0.7 g/dL (0.5-0.9); Beta 1 Globulin 0.3 g/dL (0.4-0.6); Gamma Globulin 1.7 g/dL (0.8-1.7); Protein, Total 5.7 g/dL (6.1-8.1)
[2023-05-02 18:33] LABS: Creatinine, Random Urine 17 mg/dL (20-320); Total Protein/Creatinine Ratio 21529 mg/g creat (25-148)
== END 2023-04-27 19:39 | DRG 573 ==
LOC: ANHIMU 04-14 15:15 → ANH2MED 04-15 17:48
PROVIDERS: Chiropractor; Physician Assistant; Surgery; Admitting Provider Internal Medicine; PCP Internal Medicine; Visit Provider Internal Medicine
PROC: 0QB10ZZ Excision of Sacrum, Open Approach (ICD-10-PCS; principal; 2023-04-15 10:00)
PROC: 0KBP0ZZ Excision of Left Hip Muscle, Open Approach (ICD-10-PCS; principal; 2023-04-22 09:00)
DX: L89.154 Pressure ulcer of sacral region, stage 4 (principal); E43 Unspecified severe protein-calorie malnutrition; N12 Tubulo-interstitial nephritis, not specified as acute or chronic; M46.28 Osteomyelitis of vertebra, sacral and sacrococcygeal region; I10 Essential (primary) hypertension; I48.0 Paroxysmal atrial fibrillation; I95.9 Hypotension, unspecified; E11.9 Type 2 diabetes mellitus without complications; E55.9 Vitamin D deficiency, unspecified; E78.5 Hyperlipidemia, unspecified; R33.9 Retention of urine, unspecified; R31.9 Hematuria, unspecified; Z20.822 Contact with and (suspected) exposure to COVID-19; Z79.01 Long term (current) use of anticoagulants; Z86.718 Personal history of other venous thrombosis and embolism; Z68.24 Body mass index [BMI] 24.0-24.9, adult
CPT/HCPCS: 36415; 74018; 74178; 80048; 80053; 80069; 80074; 80162; 81001; 82150; 82306; 82533; 82570; 82705; 82784; 82948; 83690; 83735; 84100; 84155; 84156; 84165; 84166; 84443; 84446; 84590; 85025; 85027; 86038; 86334; 86335; 86703; 87040; 87086; 87269; 87635; 96365; 96366; 97110; 97161; 97166; 97530; 97535; A9270; G0378; G0379; G0432; J0696; J1650; J1815; J2250; J2405; J2543; J2704; J2710; J3010; J3590; J7030; J7120; P9047; Q9967

== ENCOUNTER 2023-05-04 09:54 | Outpatient (RCR) | payer MEDICARE, OTHER, SELFPAY ==
[2023-05-04 11:04] VITALS: BMI 20.7
--- NOTE | 2023-05-04 13:31 | PM.PNGS ---
Progress Note: A&P Assessment and Plan (1) Sacral decubitus ulcer: Qualifiers: Pressure injury stage: unspecified pressure injury stage Qualified Code(s): L89.159 - Pressure ulcer of sacral region, unspecified stage Code(s): L89.159 - Pressure ulcer of sacral region, unspecified stage Status: Acute Assessment and Plan: The patient will need some light debridement of the devitalized skin at the periphery of the wound. The base is starting get decent granulation base. We will continue the wound VAC changes at the long-term. I think he will benefit from another placement of an allograft an outpatient procedure at the same time as debridement of some of the devitalized skin. Will set this up to be done next week as an outpatient. Subjective Subjective Date/Time Seen: 05/04/23 13:31 Interval history: Patient comes to the [facility] today to be evaluated and followed for his large sacral decubitus wound stage IV. He has been admitted to the long-term with wound care at that facility with changes of the [facility] wound VAC system 3 times a week. He has pain around the wound but otherwise no new complaints. There has been no active bleeding from the wound. Drainage has not been purulent. No fecal soilage of the wound is present. Exam Skin: Other: The sacral decubitus wound is still stage IV with some exposed bone of the sacrum. There is about 60% granulation tissue at the base. Wound still measures 14cm in vertical length by 17.5cm in transverse width and at most 2cm deep. There are couple of areas of superficial skin which are not viable. There was good bleeding tissue throughout the base of the wound.
== END 2023-06-02 13:39 | disposition home or self-care (01) ==
LOC: ANHWOC 09:54
PROVIDERS: PCP Internal Medicine; Visit Provider Surgery
DX: L89.154 Pressure ulcer of sacral region, stage 4 (principal)
CPT/HCPCS: 99213; G0463

== ENCOUNTER 2023-05-07 15:58 | Inpatient (IN) | payer MEDICARE, OTHER, SELFPAY ==
[2023-05-06 09:15] VITALS: BMI 14.1
--- NOTE | 2023-05-06 09:43 | PC.NURSE ---
PRE-OP INSTRUCTIONS, PLEASE READ CAREFULLY Report to the Outpatient Waiting Room, entrance under the green pavilion located off [facility], at time _0900_ on date _05/09/23_. Planned Procedure Time: _1100_. Time changes happen often and if your time is changed the preop area will call you the afternoon before. - You and your visitor will be asked to self-screen and do not enter if you have any COVID symptoms. - A mask is optional within the hospital at this time. Patients may have clear liquids (water, carbonated beverages, clear teas, apple juice) until 3 hours prior to surgery (0800 AM) with a maximum of 20 ounces. - No food from midnight until time of surgery Take the following medications with a SIP of water the morning of surgery: _AMIODARONE, DIGOXIN, LYRICA, METOPROL, MIDODRINE, & PAIN MED IF NEEDED_ DO NOT STOP ANY OF YOUR OTHER PRESCRIPTION MEDICATIONS PRIOR TO SURGERY ?EXCEPT THE FOLLOWING Medications to discontinue - _ELIQUIS PER DR. LARA'S INSTRUCTIONS, MULTIVITAMIN OF TODAY 05/06/23 Please no make-up, nail english, hairspray, perfume, deodorant, or body powder the day of surgery. No jewelry (including any body piercings) or valuables the day of surgery, leave them at home. Please take a shower or bath the night before, or the morning of, surgery with an antibacterial soap. Wear comfortable, loose fitting clothing. - Jewelry must be removed prior to entering the operating room. Rings and piercings that are not removed may be cut off. - The hospital will not accept responsibility for valuables. - Please leave all valuables, including medications, at home the day of surgery. If you are going home after surgery, a licensed crew car driver must drive you home. - NO public transportation without another adult if you receive anesthesia. - We recommend that an adult stay with you for 24 hours following discharge. - We also recommend that you do not drive, make important decision, drink alcoholic beverages, or take any drugs that were not prescribed by your health care provider for at least 24 hours after your discharge time. Follow any additional instructions given to you from your surgeon. If you or anyone in your household have experienced Covid symptoms in the past week, please notify your surgeon or the nurse liaison at the phone number below for possible testing. Telephone instructions given/FAXED to _[facility]_and asked if any additional questions and then verbalized understanding. Patient advised to call surgeon office or pre surgery nurse liaison [phone] if any additional questions.
[2023-05-07] VITALS (9 sets, daily range): BP systolic 82–107; BP diastolic 41–61; PULSE 54–60; RESP 16–22; TEMP 36.6–36.9; O2SAT 94–100; BMI 21.9
--- NOTE | ~2023-05-07 | XR_ITS ---
EXAMINATION: XR chest 1V portable Exam Date/Time: 05/07/2023 17:15 CDT HISTORY: Hypotension; HTN, A fib, type 2 DM, prev smoker Comparison: 03/19/2023; CT cap 11/16/2022. RESULT: Lines, tubes, and devices: None. Lungs and pleura: Low volumes with crowding. Mild diffuse interstitial opacities. Minimal bibasilar scar/atelectasis. Cardiomediastinal silhouette: Stable. Other: No acute osseous or upper abdominal finding. IMPRESSION: Mild interstitial edema. Reviewed, dictated and finalized at location K. IMPRESSION: Mild interstitial edema.
--- NOTE | 2023-05-07 16:14 | ECG_ITS ---
Measurements Intervals [place] Rate: 53 P: 94 CO: 244 QRS: 58 QRSD: 89 T: 62 QT: 459 QTc: 433 Interpretive Statements SINUS BRADYCARDIA WITH FIRST DEGREE AV BLOCK LOW QRS VOLTAGE- DIFFUSE LEADS CANNOT RULE OUT SEPTAL INFARCT, AGE INDETERMINATE BORDERLINE ST ABNORMALITY- ANTEROLAT/INF LEADS ABNORMAL ECG COMPARED TO ECG 03/25/2023 13:22:00 SINUS BRADYCARDIA NOW PRESENT FIRST DEGREE AV BLOCK NOW PRESENT Electronically Signed On 05-07-2023 16:37:09 CDT by Larry Juan D.O.
[2023-05-07] MEDS: SODIUM CHLORIDE 0.9% IV 1,000 ML 999 ML IV CONT ×2 (16:24→17:52)
--- NOTE | 2023-05-07 16:49 | ED.GENADULT ---
HPI - General Adult General Chief complaint: Extremity Problem,Nontraumatic Stated complaint: lethargy - low bp Time Seen by Provider: 05/07/23 16:00 History of Present Illness HPI narrative: This is a 73-year-old male, with past history of diabetes and a stage IV sacral ulcer with plan for surgical debridement in 2 days, brought in by EMS from his [facility] for low blood pressure and delayed response. EMS reports staff at the patient's f[facility] noted he appeared slower to respond than usual. He is at his baseline A&O x4. He was reportedly hypotensive to the 80s systolic. EMS reports improvement of the patient's blood pressure to the 90s systolic with IV fluids. Vital signs also remarkable for sinus bradycardia. Patient complains of chronic sacral pain but has no other complaints today. Related Data Home Medications Medication Instructions Recorded Confirmed montelukast 10 mg tablet 10 mg PO DAILY 05/11/21 05/07/23 pravastatin 40 mg tablet 40 mg PO DAILY 09/20/22 05/07/23 sitagliptin phos 50 mg-metformin 2 tablet PO DAILY 09/20/22 05/07/23 ER 1,000 mg tablet,extend rel 24h mp (Janumet XR) empagliflozin 25 mg tablet 25 mg PO DAILY 03/08/23 05/07/23 (Jardiance) icosapent ethyl 1 gram capsule 4 g PO DAILY 03/09/23 05/07/23 (Vascepa) Med Pass 2.0 Nutritional Suppl 1 container PO DAILY 05/04/23 05/07/23 amino acids-protein hydrolysate 15 1 ea PO BID 05/04/23 05/07/23 gram-100 kcal/30 mL oral liquid pkt (Pro-Stat Sugar Free) arginine-vitamin C-vitamin E oral 1 g PO BID 05/04/23 05/07/23 4.5 gram-156 mg/9.2 gram powder pkt (Arginaid) ergocalciferol (vitamin D2) 1,250 1,250 mcg PO 2XW 05/04/23 05/07/23 mcg (50,000 unit) capsule multivitamin with minerals 1 tablet PO DAILY 05/04/23 05/06/23 zinc sulfate 50 mg zinc (220 mg) 50 mg PO DAILY 05/04/23 05/07/23 capsule collagenase clostridium histo. 250 1 applic topical DAILY 05/06/23 05/07/23 unit/gram topical ointment (Santyl) dronabinol 2.5 mg capsule (Marinol) 2.5 mg PO BID 05/06/23 05/07/23 insulin lispro 100 unit/mL 1 sliding scale dose subcut 05/06/23 05/07/23 subcutaneous pen (Humalog KwikPen USEASDIRECTD (U-100) Insulin) furosemide 20 mg PO DAILY 05/07/23 05/07/23 Allergies Allergy/AdvReac Type Severity Reaction Status Date / Time No Known Allergies Allergy Verified 05/07/23 21:07 Review of Systems Review of Systems: CONSTITUTIONAL: Denies fever, chills, or sweats. CARDIOVASCULAR: Denies chest pain, palpitations, or edema. RESPIRATORY: Denies cough or dyspnea. GASTROINTESTINAL: Denies abdominal pain, nausea, vomiting, or diarrhea. GENITOURINARY: Denies dysuria or hematuria. SKIN: Pain and sacral ulcer. Denies rash or itching. MUSCULOSKELETAL: Denies back pain, joint pain, or myalgia. NEUROLOGIC: Denies headache, numbness, dizziness, or weakness. PSYCHIATRIC: Denies anxiety or depression. 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 Family History Family History (Updated 05/07/23 @ 20:17 by Ricardo Humphries RN) Father Heart disease Cancer Hypertension Malignant neoplasm of prostate Mother Diabetes mellitus Heart disease Cancer Hypertension Sibling Heart disease Cancer Hypertension Social History Social History Social History: Surrogate medical decision maker: Rocio Peña, daughter. Code status: Full code. Smoking packs p
[2023-05-07 17:08] LABS: Basophils Percent Auto 0.3 % (0.2-1.2); Eosinophils Absolute Auto 0.1 K/mm3 (0-0.3); Eosinophils Percent Auto 0.8 % (0-4.4); Hematocrit 25.4 % (42.0-52.0); Hemoglobin 7.5 g/dL (14.0-18.0); Immature Granulocyte Absolute 0.04 K/mm3 (0.00-0.031); Immature Granulocyte Percent A 0.5 % (0-0.5); Lymphocytes Absolute Auto 1.88 K/mm3 (0.9-3.2); Lymphocytes Percent Auto 23.7 % (18.3-44.2); Mean Corpuscular HGB Conc 29.5 g/dl (32-36); Mean Corpuscular Hemoglobin 25.3 pg (26-34); Mean Corpuscular Volume 85.8 fl (80-100); Mean Platelet Volume 10.1 fl (7.4-10.4); Monocytes Absolute Auto 0.6 K/mm3 (0.1-0.6); Monocytes Percent Auto 6.9 % (2.6-8.5); Neutrophils Absolute Auto 5.4 K/mm3 (1.3-6.7); Neutrophils Percent Auto 67.8 % (45.5-73.1); Platelet Count Result 332 k/mm3 (150-375); Red Blood Count 2.96 M/mm3 (4.6-6.20); Red Cell Distribution Width 17.2 % (11.5-14.5); White Blood Count 7.9 K/mm3 (4.5-10.0)
[2023-05-07 17:17] LABS: INR 2.6; Prothrombin Time 29.7 Seconds (11.1-14.7)
[2023-05-07 17:18] LABS: Lactic Acid Reflex 3.1 mmol/L (0.7-2.0)
[2023-05-07 17:19] LABS: Partial Thromboplastin Time 56.9 SECONDS (22.3-36.8)
[2023-05-07 17:20] LABS: Alanine Aminotransferase 14 U/L (6-50); Albumin Level 1.9 g/dL (3.5-5.1); Alkaline Phosphatase 130 U/L (38-126); Anion Gap 6 mmol/L (8-16); Aspartate Amino Transferase 22 U/L (17-59); Bilirubin,Total 0.3 mg/dL (0.2-1.3); Blood Urea Nitrogen 41 mg/dL (9-20); CRP 7.1 mg/dL (<1.0); Calcium 6.7 mg/dL (8.4-10.2); Carbon Dioxide 21 mmol/L (22-30); Chloride 108 mmol/L (98-107); Estimated CRCL calculation 68 ml/min; Estimated Glomerular Filt Rate > 60; Glucose 183 mg/dL (65-110); Potassium 3.8 mmol/L (3.4-5.0); Sodium 135 mmol/L (137-145)
[2023-05-07 17:29] LABS: Troponin I < 0.012 ng/mL (0.000-0.034)
[2023-05-07 17:43] LABS: Influenza A QL RT-PCR Negative (Negative); Influenza B QL RT-PCR Negative (Negative); SARS-CoV-2 RNA PCR Negative (Negative)
[2023-05-07 17:57] LABS: Appearance Urine Turbid (Clear); Bacteria Urine None Seen /hpf; Bilirubin Urine Negative (Negative); Blood Urine 3+ (Negative); Glucose Urine UA 3+ mg/dL (Negative); Ketones Urine Negative (Negative); Leukocyte Esterase Ur 3+ LEU/UL (Negative); Need Manual Microscopic Reviewed; Nitrate Urine Negative (Negative); Protein Urine 2+ mg/dL (Negative); RBC Urine >100 /hpf (0-2); Specific Grav Ur 1.021 (1.001-1.035); Squamous Epithelial Cell Urine Few /hpf (Few); Urobilinogen Urine 0.2 mg/dL (<2.0); WBC Urine >100 /hpf; pH Urine 5.5 (5.0-9.0)
[2023-05-07 17:59] LABS: Color Urine Dark Yellow (Yellow)
[2023-05-07 18:00] LABS: Add Urine Microscopic? YES
[2023-05-07] MEDS: CEFEPIME 1 GM/NS 50 ML 1 GM/50 ML BAG IVPB (18:12)
[2023-05-07] MEDS: CALCIUM GLUC 2,000 MG/NS 100ML 2,000 MG/100 ML BAG 100 MG IVPB (18:51)
--- NOTE | 2023-05-07 18:53 | PM.IMHP ---
H&P: HPI History of Present Illness Date/Time: 05/07/23 20:30 Chief Complaint: Lethargy and low blood pressure. Narrative: This is a pleasant 73-year-old male with multiple medical problems including history of DVT, type 2 diabetes mellitus, hypertension, hyperlipidemia, and paroxysmal atrial fibrillation on chronic anticoagulation who presented to the emergency department via EMS for evaluation of lethargy and low blood pressure. The patient provides the following history. He is known to myself and the hospitalist service from a couple of recent, lengthy admissions in which he was treated for multiple issues including septic shock, pyelitis, acute kidney injury, difficult to control atrial fibrillation, hypotension, and sacral decubitus ulcer. He has been out of the hospital for not quite 10 days and he reports doing okay without any significant complaints aside from increasing fatigue the last couple of days. Today he was reportedly not as interactive as usual, lethargic, and he was sent in as his blood pressures were low however that is not necessarily unusual for him and he is currently on midodrine. Blood pressure was as low as 82/45 in the emergency department but has responded to IV fluids and midodrine. He has been afebrile since arrival. Labs are pretty consistent with his baseline with a WBC count of 7.9, hemoglobin 7.5, INR 2.6, BUN 41, creatinine 0.90, calcium 6.7, lactic acid 3.1, CRP 7.1, total protein 5.0, albumin 1.9. Urine obtained from Whyte catheter was turbid with 2+ protein, 3+ glucose, 3+ blood, 3+ leukocyte esterase, greater than 100 WBC and RBC, 3 to 5 casts, and negative for bacteria. He was negative for influenza and COVID. Chest x-ray showed mild interstitial edema. At the time my evaluation the patient is alert and oriented x4 and is at his baseline. He does not seem any different than and the other times I have seen him and he is in good spirits. His only complaint is that of pain in his buttocks where he has a large sacral decubitus ulcer for which he is scheduled to have surgery in [address] Mendoza. He denies fever, chills, sweats, headache, neck ache, sinus congestion, sore throat, cough, chest pain, shortness a breath, nausea, vomiting, diarrhea, abdominal pain, and back pain. He is being admitted in this setting for closer monitoring given hypotension. Review of Systems Review of Systems: Twelve systems were reviewed and are negative except for as per HPI. 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 Family History Family History Father Heart disease Cancer Hypertension Malignant neoplasm of prostate Mother Diabetes mellitus Heart disease Cancer Hypertension Sibling Heart disease Cancer Hypertension Social History Social History Social History: Surrogate medical decision maker: Rocio Peña, daughter. Code status: Full code. Smoking packs per day: 2 Smoking cigarettes per day: 40.0 Years smoked: 29 Smoking pack-years: 58.00 Smoking status: Former smoker Tobacco type: cigarettes Second hand tobacco smoke exposure: No Smoking end date: 08/29/86 Alcohol intake: never Substance use: never Substance use type: does not use Lack of Transportation: No Lack of Food: Never True Current Housing: I Have Housing Concerned About Fu
--- NOTE | 2023-05-07 18:58 | PC.NURSE ---
3rd medical unable to take report @ [id number]
--- NOTE | 2023-05-07 19:50 | ADMGEN ---
This patient, John Warren, was admitted to Medical Room 344-01. Patient/family oriented to hospital policies and general routines including ID bracelet, bed and alarms, visiting hours, pain management, procedures, bathroom and other care routines, personal items, smoking policy, room service/diet, and visiting hours. Information on how to activate the Rapid Response Team has been discussed. Patient/Family are encouraged to report perceived risks to care and to ask questions if they do not understand what they are told or what they should do.
[2023-05-07 20:05] LABS: Reflex Lactic Acid Yes or No Add Lactic
[2023-05-07] MEDS: INSULIN GLARGINE (*BKC) 100 UNITS/ML 12 UNITS SUB-Q (20:45)
[2023-05-07 20:50] LABS: Troponin I < 0.012 ng/mL (0.000-0.034)
[2023-05-07 21:13] LABS: Glucose Point of Care 185 mg/dl (65-105)
[2023-05-08] VITALS (12 sets, daily range): BP systolic 94–104; BP diastolic 29–52; PULSE 51–69; RESP 16–20; TEMP 36.7–37.6; O2SAT 94–98
[2023-05-08 05:19] LABS: Basophils Percent Auto 0.2 % (0.2-1.2); Eosinophils Absolute Auto 0.1 K/mm3 (0-0.3); Eosinophils Percent Auto 0.7 % (0-4.4); Hematocrit 27.3 % (42.0-52.0); Immature Granulocyte Absolute 0.06 K/mm3 (0.00-0.031); Immature Granulocyte Percent A 0.7 % (0-0.5); Lymphocytes Absolute Auto 1.57 K/mm3 (0.9-3.2); Lymphocytes Percent Auto 19.3 % (18.3-44.2); Mean Corpuscular HGB Conc 29.3 g/dl (32-36); Mean Corpuscular Hemoglobin 24.5 pg (26-34); Mean Corpuscular Volume 83.7 fl (80-100); Mean Platelet Volume 9.6 fl (7.4-10.4); Monocytes Absolute Auto 0.5 K/mm3 (0.1-0.6); Monocytes Percent Auto 6.5 % (2.6-8.5); Neutrophils Absolute Auto 5.9 K/mm3 (1.3-6.7); Neutrophils Percent Auto 72.6 % (45.5-73.1); Platelet Count Result 354 k/mm3 (150-375); Red Blood Count 3.26 M/mm3 (4.6-6.20); Red Cell Distribution Width 16.8 % (11.5-14.5); White Blood Count 8.2 K/mm3 (4.5-10.0)
[2023-05-08 05:31] LABS: Alanine Aminotransferase 13 U/L (6-50); Albumin Level 1.9 g/dL (3.5-5.1); Alkaline Phosphatase 117 U/L (38-126); Anion Gap 4 mmol/L (8-16); Aspartate Amino Transferase 28 U/L (17-59); Bilirubin,Total 0.3 mg/dL (0.2-1.3); Blood Urea Nitrogen 39 mg/dL (9-20); Calcium 7.3 mg/dL (8.4-10.2); Carbon Dioxide 23 mmol/L (22-30); Chloride 110 mmol/L (98-107); Estimated CRCL calculation 82 ml/min; Estimated Glomerular Filt Rate > 60; Glucose 123 mg/dL (65-110); Potassium 3.6 mmol/L (3.4-5.0); Sodium 137 mmol/L (137-145)
[2023-05-08 05:55] LABS: Anisocytosis 1+ (NORMAL); Hypochromasia 1+ (NORMAL); Platelet Estimate Adequate (Adequate); Schistocytes None Seen (NORMAL)
[2023-05-08 08:41] LABS: Glucose Point of Care 101 mg/dl (65-105)
--- NOTE | 2023-05-08 10:09 | PM.IMPN ---
Progress Note: A&P Assessment and Plan (1) Hypotension: Qualifiers: Hypotension type: unspecified hypotension type Qualified Code(s): I95.9 - Hypotension, unspecified Code(s): I95.9 - Hypotension, unspecified Status: Acute (2) Hypocalcemia: Code(s): E83.51 - Hypocalcemia Status: Acute (3) Paroxysmal atrial fibrillation: Code(s): I48.0 - Paroxysmal atrial fibrillation Status: Acute (4) Sacral decubitus ulcer: Qualifiers: Pressure injury stage: stage 4 Qualified Code(s): L89.154 - Pressure ulcer of sacral region, stage 4 Code(s): L89.159 - Pressure ulcer of sacral region, unspecified stage Status: Acute (5) Chronic anticoagulation: Code(s): Z79.01 - alf (current) use of anticoagulants Status: Acute (6) Type 2 diabetes mellitus: Code(s): E11.9 - Type 2 diabetes mellitus without complications Status: Acute (7) Abnormal urinalysis: Code(s): R82.90 - Unspecified abnormal findings in urine Status: Acute Plan 73-year-old male who presented to the ED with lethargy and hypotension. He has a history of diabetes and stage IV sacral decubitus ulcer with plan for surgical debridement on Tuesday. His alert and oriented x4 at baseline however was noted to be slower to respond than usual noted to be hypotensive with 80s systolic. He was given some IV fluid with some improvement in blood pressure upon arrival to the ED. in 90s. He had wound VAC in place which was draining serosanguineous fluid. There was small amount of surrounding erythema noted. CBC was remarkable for hemoglobin of 7.5 baseline being 8 and recently 9.6 on April 27. Lactic acid elevated at 3.1 troponin negative UA was positive for white blood cells and red blood cell. Tested negative for COVID and influenza. Chest x-ray with mild pulmonary edema. Hypotension is chronic and been on midodrine therapy. He received some fluid and will hold off any further fluid due to mild edema on the x-ray and examination. He also has proximal atrial fibrillation currently in sinus rhythm continue on home medication. General surgery will be consulted as he is scheduled to have surgery on Tuesday. Anticoagulation on hold in anticipation for surgery on Tuesday. History of chronic lower extremity DVTs. SSI for diabetes. Received cefepime in the ED for his dirty UA however afebrile and normal WBC count could be a colonization. Will send for urine culture and follow the urine culture. Sacral decubitus ulcer debrided at 04/15 CT abdomen pelvis on 04/22 showing sacral decubitus ulcer with erosions on bone consistent with osteomyelitis. Severe malnutrition due to inadequate protein intake. CT February showing atrophic pancreas as abdomen MRI March 2022 showing chronic pancreatitis. Chronic Whyte for urinary retention. Medication reconciliation reviewed and resumed as needed Subjective Date/time seen: 05/08/23 10:09 Interval history: 73-year-old male who presented to the ED with lethargy and hypotension. He has a history of diabetes and stage IV sacral decubitus ulcer with plan for surgical debridement on Tuesday. His alert and oriented x4 at baseline however was noted to be slower to respond than usual noted to be hypotensive with 80s systolic. He was given some IV fluid with some improvement in blood pressure upon arrival to the ED. in 90s. He had wound VAC in place which was draining serosanguineous fluid. There was small amount of surrounding erythema noted. CBC was remarkable for hemoglobin of 7.5 baseline being 8 and recently 9.6 on April 27. Lactic acid elevated at 3.1 troponin negative UA was positive for white blood cells and red blood cell. Tested negative for COVID and influenza. Chest x-ray with mild pulmonary edema. Hypotension is chronic and been on midodrine therapy. He received some fluid and will hold off any further fluid due to mild edema on the x-ray and examinati
[2023-05-08] MEDS: ASPIRIN 81 MG CHEWABLE TABLET PO (11:37)
[2023-05-08] MEDS: LIPASE/AMYLASE/PROTEASE 12,000 UNITS CAP 1 CAP PO ×2 (11:37→17:01)
[2023-05-08] MEDS: OMEGA 3 POLYUNSAT FATTY ACIDS 1 GM CAP 4 GM PO (11:37)
[2023-05-08] MEDS: EMPAGLIFLOZIN 25 MG TABLET PO (11:37)
[2023-05-08] MEDS: TAMSULOSIN HCL 0.4 MG CAPSULE PO (11:37)
[2023-05-08] MEDS: FINASTERIDE 5 MG TABLET PO (11:37)
[2023-05-08] MEDS: THERAPEUTIC MULTIVITAMINS/MINERALS TAB (*BKC) 1 TABLET PO (11:37)
[2023-05-08] MEDS: PRAVASTATIN SODIUM 20 MG TABLET 40 MG PO (11:38)
[2023-05-08] MEDS: VITAMIN E 400 UNIT CAPSULE PO (11:38)
[2023-05-08] MEDS: METOPROLOL TARTRATE 50 MG TAB PO ×2 (11:38→23:38)
[2023-05-08] MEDS: PREGABALIN (*CRX) 75 MG CAPSULE 150 MG PO (11:38)
[2023-05-08] MEDS: MONTELUKAST SODIUM 10 MG TABLET PO (11:38)
[2023-05-08] MEDS: AMIODARONE HCL 200 MG TABLET PO (11:40)
[2023-05-08] MEDS: oxyCODONE/ACETAMINOPHEN (*CRX) 5-325 MG TABLET 1 TABLET PO (11:51)
[2023-05-08 11:57] LABS: Glucose Point of Care 111 mg/dl (65-105)
--- NOTE | 2023-05-08 13:33 | WPDCN ---
Assessment and Plan Assessment and plan (1) Sacral decubitus ulcer: Qualifiers: Pressure injury stage: stage 4 Qualified Code(s): L89.154 - Pressure ulcer of sacral region, stage 4 Code(s): L89.159 - Pressure ulcer of sacral region, unspecified stage Status: Acute Assessment and Plan: Patient was readmitted for hypotension. He has a long history of relative hypotension and is on midodrine. The sacral decubitus ulcer is dressed with a wound VAC presently. As long as he is stable from a medical perspective to have a anesthetic as blood pressure well tolerated then we will proceed with debridement of the wound and fully application of another allograft and wound VAC. HPI Data of Consult Date/Time: 05/08/23 13:33 Requesting Physician: Dagoberto Hoffman MD Primary Care Provider: Mario Salmeron, Consult Narrative Reason for consult: Sacral Decubitus ulcer, Stage 4 Narrative: John Warren is a 73 year old male who was readmitted to the hospital from a skilled nursing due to low blood pressure yesterday. I saw him in the wound care clinic earlier this week where he had small amount of necrotic skin and subcutaneous tissue around the large sacral decubitus wound which will need to be debrided he is set up to have that done tomorrow. It was initially set up as an outpatient but now since he has been admitted to the hospital I have been asked to evaluate him. Review of Systems Review of Systems: The remainder of the review of systems to include constitutional, HEENT, cardiovascular, respiratory, GI, , integumentary, musculoskeletal, endocrine, immunologic, hematologic, psychiatric, and neurologic are all negative except for which is mentioned above in the HPI. 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 Family History Family History Father Heart disease Cancer Hypertension Malignant neoplasm of prostate Mother Diabetes mellitus Heart disease Cancer Hypertension Sibling Heart disease Cancer Hypertension Social History Social History Social History: Surrogate medical decision maker: Rocio Peña, daughter. Code status: Full code. Smoking packs per day: 2 Smoking cigarettes per day: 40.0 Years smoked: 29 Smoking pack-years: 58.00 Smoking status: Former smoker Tobacco type: cigarettes Second hand tobacco smoke exposure: No Smoking end date: 08/29/86 Alcohol intake: never Substance use: never Substance use type: does not use Lack of Transportation: No Lack of Food: Never True Current Housing: I Have Housing Concerned About Future Housing: No Difficulty Paying Gas/Electric Bills: No Difficulty Paying for Meds: No Currently Unemployed: No Education: High School Diploma/GED Difficulty w/ Childcare or Family Care: No Living arrangements: skilled nursing Additional living arrangements comments: [facility] Spiritual care concerns: No Meds Home Medications and Allergies Home Medications Medication Instructions Recorded Confirmed Type montelukast 10 mg tablet 10 mg PO DAILY 05/11/21 05/07/23 History tamsulosin 0.4 mg capsule 0.4 mg PO QAM #30 caps 09/03/22 05/07/23 Rx acetaminophen 325 mg tablet (Mapap 650 mg PO Q6H PRN Mild Pain (1-3) 09/17/22 05/07/23 Rx (acetaminophen)) Or Fever #30 t
[2023-05-08] MEDS: MIDODRINE HCL 10 MG TABLET PO ×2 (14:06→17:01)
[2023-05-08] MEDS: LACTATED RINGERS 1,000 ML 75 ML IV CONT (14:07)
[2023-05-08] MEDS: PANTOPRAZOLE 40 MG TABLET PO (17:01)
[2023-05-08] MEDS: ALBUMIN HUMAN 25% 12.5 GM/50ML 50 ML IVPB ×2 (17:01→23:39)
[2023-05-08] MEDS: droNABinol (*CRX) 2.5 MG CAPSULE PO (17:05)
[2023-05-08 17:14] LABS: Glucose Point of Care 101 mg/dl (65-105)
[2023-05-08] MEDS: TOLNAFTATE 1% POWDER 45 GM BTL 1 APPLIC TOPICAL (20:19)
[2023-05-08 20:34] LABS: Glucose Point of Care 113 mg/dl (65-105)
[2023-05-09] VITALS (27 sets, daily range): BP systolic 80–151; BP diastolic 35–65; PULSE 57–69; RESP 14–26; TEMP 37–38.2; O2SAT 94–100; BMI 21.3
[2023-05-09 06:00] LABS: Basophils Percent Auto 0.2 % (0.2-1.2); Eosinophils Percent Auto 0.4 % (0-4.4); Hematocrit 25.9 % (42.0-52.0); Hemoglobin 7.4 g/dL (14.0-18.0); Immature Granulocyte Absolute 0.03 K/mm3 (0.00-0.031); Immature Granulocyte Percent A 0.3 % (0-0.5); Lymphocytes Absolute Auto 1.59 K/mm3 (0.9-3.2); Lymphocytes Percent Auto 17.6 % (18.3-44.2); Mean Corpuscular HGB Conc 28.6 g/dl (32-36); Mean Corpuscular Hemoglobin 24.1 pg (26-34); Mean Corpuscular Volume 84.4 fl (80-100); Mean Platelet Volume 9.9 fl (7.4-10.4); Monocytes Absolute Auto 0.5 K/mm3 (0.1-0.6); Monocytes Percent Auto 5.9 % (2.6-8.5); Neutrophils Absolute Auto 6.8 K/mm3 (1.3-6.7); Neutrophils Percent Auto 75.6 % (45.5-73.1); Platelet Count Result 352 k/mm3 (150-375); Red Blood Count 3.07 M/mm3 (4.6-6.20); Red Cell Distribution Width 16.9 % (11.5-14.5)
[2023-05-09] MEDS: ALBUMIN HUMAN 25% 12.5 GM/50ML 50 ML IVPB ×2 (06:00→14:42)
[2023-05-09 06:10] LABS: Alanine Aminotransferase 11 U/L (6-50); Alkaline Phosphatase 102 U/L (38-126); Anion Gap 7 mmol/L (8-16); Aspartate Amino Transferase 24 U/L (17-59); Bilirubin,Total 0.5 mg/dL (0.2-1.3); Blood Urea Nitrogen 35 mg/dL (9-20); Calcium 7.2 mg/dL (8.4-10.2); Carbon Dioxide 20 mmol/L (22-30); Chloride 109 mmol/L (98-107); Estimated CRCL calculation 80 ml/min; Estimated Glomerular Filt Rate > 60; Glucose 99 mg/dL (65-110); Magnesium 1.9 mg/dL (1.6-2.3); Potassium 3.8 mmol/L (3.4-5.0); Sodium 136 mmol/L (137-145)
[2023-05-09 06:34] LABS: Anisocytosis 1+ (NORMAL); Hypochromasia 1+ (NORMAL); Platelet Estimate Adequate (Adequate); Schistocytes None Seen (NORMAL)
[2023-05-09] MEDS: LACTATED RINGERS 1,000 ML 75 ML IV CONT ×2 (06:38→20:03)
--- NOTE | 2023-05-09 08:03 | WPDANESEPPF ---
Anes - Initial Pre Proc Eval Procedure: Operation Date: 05/09/23 11:00 Proposed Procedures p Debridement of Sacral Decubitus Ulcer, Placement of Allograft and Wound Vac - Rian Mendoza MD Date/Time: 05/09/23 08:03 Surgeon: Dagoberto Hoffman MD Pre Op Diagnosis: Hypotension, Hypocalcemia Patient Data Age: 73 Gender: M Height: 1.78 m Weight: 67.5 kg Last Vital Signs Temp 37.6 C 05/09/23 05:06 Pulse 60 05/09/23 05:06 Resp 17 05/09/23 05:06 BP 116/37 L 05/09/23 05:06 Pulse Ox 94 05/09/23 05:06 O2 Del Method Room Air 05/08/23 20:00 Allergies Allergy/AdvReac Type Severity Reaction Status Date / Time No Known Allergies Allergy Verified 05/07/23 21:07 Home Medications Medication Instructions Recorded Confirmed Type montelukast 10 mg tablet 10 mg PO DAILY 05/11/21 05/07/23 History tamsulosin 0.4 mg capsule 0.4 mg PO QAM #30 caps 09/03/22 05/07/23 Rx acetaminophen 325 mg tablet (Mapap 650 mg PO Q6H PRN Mild Pain (1-3) 09/17/22 05/07/23 Rx (acetaminophen)) Or Fever #30 tabs aspirin 81 mg chewable tablet 81 mg PO DAILY@0800 #30 tabs 09/17/22 05/07/23 Rx (Children's Aspirin) pregabalin 75 mg capsule (Lyrica) 150 mg PO DAILY #30 caps 09/17/22 05/07/23 Rx pravastatin 40 mg tablet 40 mg PO DAILY 09/20/22 05/07/23 History sitagliptin phos 50 mg-metformin 2 tablet PO DAILY 09/20/22 05/07/23 History ER 1,000 mg tablet,extend rel 24h mp (Janumet XR) empagliflozin 25 mg tablet 25 mg PO DAILY 03/08/23 05/07/23 History (Jardiance) icosapent ethyl 1 gram capsule 4 g PO DAILY 03/09/23 05/07/23 History (Vascepa) amiodarone 200 mg tablet (Pacerone) 200 mg PO DAILY@0800 #30 tabs 04/05/23 05/07/23 Rx bisacodyl 5 mg tablet,delayed 5 mg PO QAM PRN Constipation #30 04/05/23 05/07/23 Rx release (Laxative (bisacodyl)) tabs digoxin 250 mcg (0.25 mg) tablet 250 mcg PO QAM #30 tabs 04/05/23 05/07/23 Rx (Digitek) finasteride 5 mg tablet (Proscar) 5 mg PO QAM #30 tabs 04/05/23 05/07/23 Rx midodrine 10 mg tablet 10 mg PO TID #90 tabs 04/05/23 05/07/23 Rx pantoprazole 40 mg tablet,delayed 40 mg PO BID #60 tabs 04/05/23 05/07/23 Rx release (Protonix) polyethylene glycol 3350 17 gram 17 g PO QAM PRN constipation #14 ea 04/05/23 05/07/23 Rx oral powder packet (Miralax) tolnaftate 1 % topical powder 1 applic topical Q12HR #45 grams 04/05/23 05/07/23 Rx toscey-rngoeabk-nnktecd 1 cap PO TIDWM #90 caps 04/27/23 05/07/23 Rx 12,000-38,000-60,000 unit capsule,delayed rel (Creon) lisinopril 5 mg tablet 5 mg PO QAM #30 tabs 04/27/23 05/07/23 Rx metoprolol tartrate 100 mg tablet 50 mg PO Q12H #1 tablet 04/27/23 05/07/23 Rx oxycodone-acetaminophen 5 mg-325 1 tablet PO Q6H PRN Pain Rated 4-6 04/27/23 05/07/23 Rx mg tablet #12 tabs vitamin E (dl, acetate) 180 mg 180 mg PO QAM #30 caps 04/27/23 05/07/23 Rx (400 unit) capsule Med Pass 2.0 Nutritional Suppl 1 container PO DAILY 05/04/23 05/07/23 History amino acids-protein hydrolysate 15 1 ea PO BID 05/04/23 05/07/23 History gram-100 kcal/30 mL oral liquid pkt (Pro-Stat Sugar Free) arginine-vitamin C-vitamin E oral 1 g PO BID 05/04/23 05/07/23 History 4.5 gram-156 mg/9.2 gram powder pkt (Arginaid) ergocalciferol (vitamin D2) 1,250 1,250 mcg PO 2XW 05/04/23 05/07/23 History mcg (50,000 unit) capsule multivitamin with minerals 1 tablet PO DAILY 05/04/23 05/08/23 History zinc sulfate 50 mg zinc (220 mg) 50 mg PO DAILY 05/04/23 05/07/23 History capsule collagenase clostridium histo. 250 1 applic topical DAILY 05/06/23 05/07/23 History unit/gram topical ointment (Santyl) dronabinol 2.5 mg capsule (Marinol) 2.5 mg PO BID 05/06/23 05/07/23 History insulin lispro 100 unit/mL 1 sliding scale dose subcut 05/06/23 05/07/23 History subcutaneous pen (Humalog KwikPen USEASDIRECTD (U-100) Insulin) furosemide 20 mg PO DAILY 05/07/23 05/07/23 History Laboratory Tests 05/08/23 05/08/23 05/08/23 08:38 11:55 17:12 WBC
--- NOTE | 2023-05-09 08:07 | PC.NURSE ---
pt off floor for surgery at 0750
[2023-05-09] MEDS: LACTATED RINGERS 1,000 ML 30 ML IV CONT (08:42)
--- NOTE | 2023-05-09 08:54 | WPDHPUPDATE1 ---
History and Physical Update Update Date/Time: 05/09/23 08:54 History and Physical has been reviewed, including an updated exam of the patient. There are NO changes in the patient's condition. Risks, benefits, and alternatives have been discussed and questions answered. Patient agrees to proceed with procedure.
[2023-05-09] MEDS: ceFAZolin 2 GM/D5W 50 ML 2 GM/50 ML BAG IVPB (09:02)
[2023-05-09 10:35] LABS: Glucose Point of Care 126 mg/dl (65-105)
--- NOTE | 2023-05-09 10:48 | PM.OP ---
Procedure Note - Brief Procedure Note - Brief Date of procedure: 05/09/23 Hypotension, Hypocalcemia, stage IV sacral decubitus wound Post-op diagnosis: Same Surgeon: Rian Mendoza MD Anesthesia: GETA Implants: Axial Fill Allograft 2 Gram Estimated blood loss (mL): 50 Drains: No Packing: Yes (Wound VAC to sacral decubitus wound) Pathology: None sent Complications: No immediate complications Condition: Stable Disposition: PACU
--- NOTE | 2023-05-09 12:09 | PCWOUND ---
Patient admitted with Medela wound vac from [facility]. Wound vac was still in place when patient went down for surgery. Wound vac machine and charging cords brought up to the wound center, Chanel professor of nursing at [employer] notified, she states she will come to office to pick it up today.
[2023-05-09 12:13] LABS: Glucose Point of Care 130 mg/dl (65-105)
[2023-05-09] MEDS: PREGABALIN (*CRX) 75 MG CAPSULE 150 MG PO (13:10)
[2023-05-09] MEDS: LIPASE/AMYLASE/PROTEASE 12,000 UNITS CAP 1 CAP PO ×2 (13:11→17:34)
[2023-05-09] MEDS: MIDODRINE HCL 10 MG TABLET PO ×2 (13:11→17:34)
[2023-05-09] MEDS: EMPAGLIFLOZIN 25 MG TABLET PO (13:13)
[2023-05-09] MEDS: DIGOXIN 250 MCG TABLET PO (13:13)
[2023-05-09] MEDS: metFORMIN HCL XR 500 MG TAB.SR.24H 2000 MG PO (13:14)
[2023-05-09] MEDS: FINASTERIDE 5 MG TABLET PO (13:14)
[2023-05-09] MEDS: TAMSULOSIN HCL 0.4 MG CAPSULE PO (13:18)
[2023-05-09] MEDS: SODIUM CHLORIDE 0.9% IV 250 ML 30 ML IV CONT (13:48)
--- NOTE | 2023-05-09 14:48 | PM.DS ---
DS: Summary Time Spent with Patient Time attestation: Total time spent providing and/or coordinating discharge services: DS: Data Data Completed and Pending Labs on day of discharge: Labs from last 24 hours 05/09/23 05/09/23 05/09/23 12:05 10:33 08:29 WBC RBC Hgb Hct MCV MCH MCHC RDW Plt Count MPV Immature Gran % (Auto) Neut % (Auto) Lymph % (Auto) [place] % (Auto) Eos % (Auto) Baso % (Auto) Lymph # (Auto) [place] # (Auto) Eos # (Auto) Baso # (Auto) Abs Immat Gran (auto) Absolute Neuts (auto) Absolute Nucleated RBC Nucleated RBC % Platelet Estimate Hypochromasia Anisocytosis Schistocytes Sodium Potassium Chloride Carbon Dioxide Anion Gap BUN Creatinine Estim Creat Clear Calc Estimated GFR Glucose POC Capillary Glucose 130 H 126 H Calcium Magnesium Total Bilirubin AST ALT Alkaline Phosphatase Total Protein Albumin Blood Type B Positive Antibody Screen Negative Crossmatch See Detail 05/09/23 05/08/23 05/08/23 05:36 20:31 17:12 WBC 9.0 RBC 3.07 L Hgb 7.4 L Hct 25.9 L MCV 84.4 MCH 24.1 L MCHC 28.6 L RDW 16.9 H Plt Count 352 MPV 9.9 Immature Gran % (Auto) 0.3 Neut % (Auto) 75.6 H Lymph % (Auto) 17.6 L [place] % (Auto) 5.9 Eos % (Auto) 0.4 Baso % (Auto) 0.2 Lymph # (Auto) 1.59 [place] # (Auto) 0.5 Eos # (Auto) 0.0 Baso # (Auto) 0.0 Abs Immat Gran (auto) 0.03 Absolute Neuts (auto) 6.8 H Absolute Nucleated RBC 0.0 Nucleated RBC % 0.0 Platelet Estimate Adequate Hypochromasia 1+ Anisocytosis 1+ Schistocytes None seen Sodium 136 L Potassium 3.8 Chloride 109 H Carbon Dioxide 20 L Anion Gap 7 L BUN 35 H Creatinine 0.70 Estim Creat Clear Calc 80 Estimated GFR > 60 Glucose 99 POC Capillary Glucose 113 H 101 Calcium 7.2 L Magnesium 1.9 Total Bilirubin 0.5 AST 24 ALT 11 Alkaline Phosphatase 102 Total Protein 5.0 L Albumin 2.0 L Blood Type Antibody Screen Crossmatch Preliminary micro results at discharge 05/07/23 17:30 Blood Culture - Preliminary Blood Gram positive cocci cluster is 05/07/23 17:30 Urine Culture - Preliminary Unspecified Klebsiella pneumoniae Escherichia Coli 05/07/23 16:56 Blood Culture - Preliminary Blood Discharge Plan Discharge Consulting providers: Rian Mendoza Discharge Medications: No Action pravastatin 40 mg tablet 40 mg PO DAILY Janumet XR 50-1,000 mg tablet, ER multiphase 24 hr 2 tablet PO DAILY montelukast 10 mg tablet 10 mg PO DAILY ergocalciferol (vitamin D2) 1,250 mcg (50,000 unit) Capsule 1,250 mcg PO 2XW All Purpose Multivitamin-Min Tablet 1 tablet PO DAILY zinc sulfate 50 mg zinc (220 mg) Capsule 50 mg PO DAILY Pro-Stat Sugar Free 15 gram- 100 kcal/30 mL Liquid In Packet 1 ea PO BID Arginaid 4.5 gram-156 mg/9.2 gram Powder In Packet 1 g PO BID Rx Instructions: 1 packet two times a day Med Pass 2.0 Nutritional Suppl 120 ML 1 container PO DAILY Rx Instructions: med pass 2.0 nutritional supplement 120ML for wound healing and maintenance lisinopril 5 mg Tablet 5 mg PO QAM Qty: 30 0RF Rx Instructions: Hold if SBP<100 vitamin E (dl, acetate) 180 mg (400 unit) Capsule 180 mg PO QAM Qty: 30 0RF Creon 12,000-38,000 -60,000 unit Capsule,Delayed Release(Dr/Ec) 1 cap PO TIDWM Qty: 90 0RF metoprolol tartrate 100 mg tablet 50 mg PO Q12H Qty: 1 0RF Rx Instructions: HOLD if SBP< 100 oxycodone-acetaminophen 5-325 mg Tablet 1 tablet PO Q6H PRN (Reason: Pain Rated 4-6) Qty: 12 0RF dronabinol [Marinol] 2.5 mg Capsule 2.5 mg PO BID Rx Instructions: administer before lunch and evening meal/dinner Santyl 25
--- NOTE | 2023-05-09 16:29 | PM.IMPN ---
Progress Note: A&P Assessment and Plan (1) Hypotension: Qualifiers: Hypotension type: unspecified hypotension type Qualified Code(s): I95.9 - Hypotension, unspecified Code(s): I95.9 - Hypotension, unspecified Status: Acute (2) Hypocalcemia: Code(s): E83.51 - Hypocalcemia Status: Acute (3) Paroxysmal atrial fibrillation: Code(s): I48.0 - Paroxysmal atrial fibrillation Status: Acute (4) Sacral decubitus ulcer: Qualifiers: Pressure injury stage: stage 4 Qualified Code(s): L89.154 - Pressure ulcer of sacral region, stage 4 Code(s): L89.159 - Pressure ulcer of sacral region, unspecified stage Status: Acute (5) Chronic anticoagulation: Code(s): Z79.01 - [facility] (current) use of anticoagulants Status: Acute (6) Type 2 diabetes mellitus: Code(s): E11.9 - Type 2 diabetes mellitus without complications Status: Acute (7) Abnormal urinalysis: Code(s): R82.90 - Unspecified abnormal findings in urine Status: Acute Plan 73-year-old male who presented to the ED with lethargy and hypotension. He has a history of diabetes and stage IV sacral decubitus ulcer with plan for surgical debridement on Tuesday. His alert and oriented x4 at baseline however was noted to be slower to respond than usual noted to be hypotensive with 80s systolic. He was given some IV fluid with some improvement in blood pressure upon arrival to the ED. in 90s. He had wound VAC in place which was draining serosanguineous fluid. There was small amount of surrounding erythema noted. CBC was remarkable for hemoglobin of 7.5 baseline being 8 and recently 9.6 on April 27. Lactic acid elevated at 3.1 troponin negative UA was positive for white blood cells and red blood cell. Tested negative for COVID and influenza. Chest x-ray with mild pulmonary edema. Hypotension is chronic and been on midodrine therapy. He received some fluid and will hold off any further fluid due to mild edema on the x-ray and examination. He also has proximal atrial fibrillation currently in sinus rhythm continue on home medication. General surgery will be consulted as he is scheduled to have surgery on Tuesday. Anticoagulation on hold in anticipation for surgery on Tuesday. History of chronic lower extremity DVTs. SSI for diabetes. Received cefepime in the ED for his dirty UA however afebrile and normal WBC count could be a colonization. Will send for urine culture and follow the urine culture. Sacral decubitus ulcer debrided at 04/15 CT abdomen pelvis on 04/22 showing sacral decubitus ulcer with erosions on bone consistent with osteomyelitis. Severe malnutrition due to inadequate protein intake. CT February showing atrophic pancreas as abdomen MRI March 2022 showing chronic pancreatitis. Chronic Whyte for urinary retention. Medication reconciliation reviewed and resumed as needed s/p sacral decubitus ulcer debridement 05/09/2023 per gen surg bactereia [facility] start vancomyinc urine culture with kleb and e coli.s tart ceftraixone. Subjective Date/time seen: 05/09/23 16:29 Interval history: 73-year-old male who presented to the ED with lethargy and hypotension. He has a history of diabetes and stage IV sacral decubitus ulcer with plan for surgical debridement on Tuesday. His alert and oriented x4 at baseline however was noted to be slower to respond than usual noted to be hypotensive with 80s systolic. He was given some IV fluid with some improvement in blood pressure upon arrival to the ED. in 90s. He had wound VAC in place which was draining serosanguineous fluid. There was small amount of surrounding erythema noted. CBC was remarkable for hemoglobin of 7.5 baseline being 8 and recently 9.6 on April 27. Lactic acid elevated at 3.1 troponin negative UA was positive for white blood cells and red blood cell. Tested negative for COVID and influenza. Chest x-ray with mild pulmonary edema.
[2023-05-09 17:29] LABS: Glucose Point of Care 135 mg/dl (65-105)
[2023-05-09] MEDS: TUBING, BLOOD PLUM PUMP TUBING 1 EACH XX (17:33)
[2023-05-09] MEDS: cefTRIAXone 2 GM/NS 100 ML 2 GM/100 ML BAG IVPB (17:33)
[2023-05-09] MEDS: PANTOPRAZOLE 40 MG TABLET PO (17:34)
[2023-05-09] MEDS: droNABinol (*CRX) 2.5 MG CAPSULE PO (17:59)
[2023-05-09] MEDS: oxyCODONE/ACETAMINOPHEN (*CRX) 5-325 MG TABLET 1 TABLET PO (20:49)
[2023-05-09] MEDS: TOLNAFTATE 1% POWDER 45 GM BTL 1 APPLIC TOPICAL (20:52)
[2023-05-09 21:48] LABS: Glucose Point of Care 149 mg/dl (65-105)
[2023-05-09] MEDS: METOPROLOL TARTRATE 50 MG TAB PO (23:59)
[2023-05-10] VITALS (14 sets, daily range): BP systolic 107–116; BP diastolic 33–52; PULSE 54–64; RESP 16–18; TEMP 36.6–37.4; O2SAT 94–98
[2023-05-10 05:25] LABS: Hematocrit 32.3 % (42.0-52.0); Hemoglobin 9.7 g/dL (14.0-18.0); Mean Corpuscular Hemoglobin 26.1 pg (26-34); Mean Corpuscular Volume 86.8 fl (80-100); Platelet Count Result 306 k/mm3 (150-375); Red Blood Count 3.72 M/mm3 (4.6-6.20); Red Cell Distribution Width 16.3 % (11.5-14.5); White Blood Count 9.3 K/mm3 (4.5-10.0)
[2023-05-10 05:37] LABS: Anion Gap 11 mmol/L (8-16); Blood Urea Nitrogen 30 mg/dL (9-20); Calcium 7.9 mg/dL (8.4-10.2); Carbon Dioxide 18 mmol/L (22-30); Chloride 107 mmol/L (98-107); Estimated CRCL calculation 86 ml/min; Estimated Glomerular Filt Rate > 60; Glucose 164 mg/dL (65-110); Magnesium 1.8 mg/dL (1.6-2.3); Potassium 4.3 mmol/L (3.4-5.0); Sodium 136 mmol/L (137-145)
[2023-05-10] MEDS: ALBUMIN HUMAN 25% 12.5 GM/50ML 50 ML IVPB ×5 (05:40→23:51)
[2023-05-10] MEDS: VANCOMYCIN 1,250 MG/NS 250 ML 1,250 MG/250 ML BAG 166.67 MG IVPB ×2 (05:41→18:52)
[2023-05-10] MEDS: LACTATED RINGERS 1,000 ML 75 ML IV CONT (05:43)
--- NOTE | 2023-05-10 07:34 | WPDANESPN ---
Anes - Prog Note Post-Op Date/Time: 05/10/23 07:34 Cardiovascular status: normal Respiratory status: normal Airway patency: baseline Mental status: baseline Post-Op hydration status: normal Vital Signs: Last Vital Signs Temp 98.1 F 05/10/23 05:25 Pulse 54 L 05/10/23 05:25 Resp 18 05/10/23 05:25 BP 114/41 L 05/10/23 05:25 Pulse Ox 98 05/10/23 05:25 O2 Del Method Room Air 05/09/23 20:45 O2 Flow Rate 2 05/09/23 11:39 Pain Score (VAS): 0 I/O: Intake & Output 05/09/23 05/09/23 05/10/23 15:59 23:59 07:59 Intake Total 570 1940 1600 Output Total 197 255 2309 Balance -230 1390 400 Laboratory Tests 05/10/23 05:04 05/10/23 05:04 05/09/23 05/09/23 05/09/23 08:29 10:33 12:05 WBC RBC Hgb Hct MCV MCH MCHC RDW Plt Count MPV Sodium Potassium Chloride Carbon Dioxide Anion Gap BUN Creatinine Estim Creat Clear Calc Estimated GFR Glucose POC Capillary Glucose 126 H 130 H Calcium Magnesium Blood Type B Positive Antibody Screen Negative Crossmatch See Detail 05/09/23 05/09/23 05/10/23 17:24 20:52 05:04 WBC 9.3 RBC 3.72 L Hgb 9.7 L Hct 32.3 L MCV 86.8 MCH 26.1 D MCHC 30.0 L RDW 16.3 H Plt Count 306 MPV 10.0 Sodium 136 L Potassium 4.3 Chloride 107 Carbon Dioxide 18 L Anion Gap 11 BUN 30 H Creatinine 0.70 Estim Creat Clear Calc 86 Estimated GFR > 60 Glucose 164 H POC Capillary Glucose 135 H 149 H Calcium 7.9 L Magnesium 1.8 Blood Type Antibody Screen Crossmatch Microbiology 05/07/23 17:30 Blood Blood Culture - Preliminary Gram positive cocci cluster is 05/07/23 16:56 Blood Blood Culture - Preliminary Gram positive cocci isolated 05/07/23 17:30 Unspecified Urine Culture - Preliminary Klebsiella pneumoniae Escherichia Coli Post-procedural complaints: none Patient Feedback: Patient satisfied with anesthetic care.
[2023-05-10 07:50] LABS: Glucose Point of Care 174 mg/dl (65-105)
[2023-05-10] MEDS: MIDODRINE HCL 10 MG TABLET PO ×3 (09:36→17:08)
[2023-05-10] MEDS: LIPASE/AMYLASE/PROTEASE 12,000 UNITS CAP 1 CAP PO ×3 (09:36→17:08)
[2023-05-10] MEDS: THERAPEUTIC MULTIVITAMINS/MINERALS TAB (*BKC) 1 TABLET PO (09:36)
[2023-05-10] MEDS: PRAVASTATIN SODIUM 20 MG TABLET 40 MG PO (09:36)
[2023-05-10] MEDS: MONTELUKAST SODIUM 10 MG TABLET PO (09:36)
[2023-05-10] MEDS: OMEGA 3 POLYUNSAT FATTY ACIDS 1 GM CAP 4 GM PO (09:36)
[2023-05-10] MEDS: metFORMIN HCL XR 500 MG TAB.SR.24H 2000 MG PO (09:37)
[2023-05-10] MEDS: ASPIRIN 81 MG CHEWABLE TABLET PO (09:37)
[2023-05-10] MEDS: TAMSULOSIN HCL 0.4 MG CAPSULE PO (09:37)
[2023-05-10] MEDS: FINASTERIDE 5 MG TABLET PO (09:37)
[2023-05-10] MEDS: PREGABALIN (*CRX) 75 MG CAPSULE 150 MG PO (09:38)
[2023-05-10] MEDS: VITAMIN E 400 UNIT CAPSULE PO (09:38)
[2023-05-10] MEDS: PANTOPRAZOLE 40 MG TABLET PO ×2 (09:38→17:08)
[2023-05-10] MEDS: FUROSEMIDE 20 MG TABLET PO (09:38)
[2023-05-10] MEDS: EMPAGLIFLOZIN 25 MG TABLET PO (09:38)
[2023-05-10] MEDS: AMIODARONE HCL 200 MG TABLET PO (10:10)
[2023-05-10] MEDS: DIGOXIN 250 MCG TABLET PO (10:13)
[2023-05-10] MEDS: COLLAGENASE OINT 30 GM TUBE 1 APPLIC TOPICAL (10:43)
[2023-05-10] MEDS: TOLNAFTATE 1% POWDER 45 GM BTL 1 APPLIC TOPICAL ×2 (10:43→20:03)
--- NOTE | 2023-05-10 11:30 | PM.IMPN ---
Progress Note: A&P Assessment and Plan (1) Hypotension: Qualifiers: Hypotension type: unspecified hypotension type Qualified Code(s): I95.9 - Hypotension, unspecified Code(s): I95.9 - Hypotension, unspecified Status: Acute (2) Hypocalcemia: Code(s): E83.51 - Hypocalcemia Status: Acute (3) Paroxysmal atrial fibrillation: Code(s): I48.0 - Paroxysmal atrial fibrillation Status: Acute (4) Sacral decubitus ulcer: Qualifiers: Pressure injury stage: stage 4 Qualified Code(s): L89.154 - Pressure ulcer of sacral region, stage 4 Code(s): L89.159 - Pressure ulcer of sacral region, unspecified stage Status: Acute (5) Chronic anticoagulation: Code(s): Z79.01 - [facility] (current) use of anticoagulants Status: Acute (6) Type 2 diabetes mellitus: Code(s): E11.9 - Type 2 diabetes mellitus without complications Status: Acute (7) Abnormal urinalysis: Code(s): R82.90 - Unspecified abnormal findings in urine Status: Acute Plan 73-year-old male who presented to the ED with lethargy and hypotension. He has a history of diabetes and stage IV sacral decubitus ulcer with plan for surgical debridement on Tuesday. His alert and oriented x4 at baseline however was noted to be slower to respond than usual noted to be hypotensive with 80s systolic. He was given some IV fluid with some improvement in blood pressure upon arrival to the ED. in 90s. He had wound VAC in place which was draining serosanguineous fluid. There was small amount of surrounding erythema noted. CBC was remarkable for hemoglobin of 7.5 baseline being 8 and recently 9.6 on April 27. Lactic acid elevated at 3.1 troponin negative UA was positive for white blood cells and red blood cell. Tested negative for COVID and influenza. Chest x-ray with mild pulmonary edema. Hypotension is chronic and been on midodrine therapy. He received some fluid and will hold off any further fluid due to mild edema on the x-ray and examination. He also has proximal atrial fibrillation currently in sinus rhythm continue on home medication. General surgery will be consulted as he is scheduled to have surgery on Tuesday. Anticoagulation on hold in anticipation for surgery on Tuesday. History of chronic lower extremity DVTs. SSI for diabetes. Received cefepime in the ED for his dirty UA however afebrile and normal WBC count could be a colonization. Will send for urine culture and follow the urine culture. Sacral decubitus ulcer debrided at 04/15 CT abdomen pelvis on 04/22 showing sacral decubitus ulcer with erosions on bone consistent with osteomyelitis. Severe malnutrition due to inadequate protein intake. CT February showing atrophic pancreas as abdomen MRI March 2022 showing chronic pancreatitis. Chronic Whyte for urinary retention. Medication reconciliation reviewed and resumed as needed s/p sacral decubitus ulcer debridement 05/09/2023 per gen surg bacteremia [facility] start vancomyinc. Coming back at the stap epidermidis repeat blood culture today urine culture with kleb and e coli. Started on ceftriaxone Dietary consultation for nutritional management. Need calorie count will check pre-albumin Subjective Date/time seen: 05/10/23 11:30 Interval history: 73-year-old male who presented to the ED with lethargy and hypotension. He has a history of diabetes and stage IV sacral decubitus ulcer with plan for surgical debridement on Tuesday. His alert and oriented x4 at baseline however was noted to be slower to respond than usual noted to be hypotensive with 80s systolic. He was given some IV fluid with some improvement in blood pressure upon arrival to the ED. in 90s. He had wound VAC in place which was draining serosanguineous fluid. There was small amount of surrounding erythema noted. CBC was remarkable for hemoglobin of 7.5 baseline being 8 and recently 9.6 on April 27. Lactic acid elevated at
[2023-05-10 12:00] LABS: Glucose Point of Care 168 mg/dl (65-105)
[2023-05-10] MEDS: METOPROLOL TARTRATE 50 MG TAB PO ×2 (12:02→23:53)
[2023-05-10] MEDS: droNABinol (*CRX) 2.5 MG CAPSULE PO ×2 (12:02→17:08)
[2023-05-10] MEDS: oxyCODONE/ACETAMINOPHEN (*CRX) 5-325 MG TABLET 1 TABLET PO (12:08)
[2023-05-10] MEDS: ZINC SULFATE 220 MG CAPSULE 50 MG PO (13:16)
--- NOTE | 2023-05-10 15:07 | P.OP_ITS ---
Procedure Note - Detailed Date of Procedure 05/10/23 Pre-op Diagnosis Stage IV sacral decubitus ulcer Post-op Diagnosis Same Procedure Performed Sharp excisional debridement of skin, subcutaneous tissue, bone, and muscle from sacral decubitus wound with application of Axial Fill allograft and wound vac placement. Surgeon Rian Mendoza MD Instructor [employer]stitute [employer] HONORIO Jones Anesthesia General Indications Patient is a 73-year-old gentleman who unfortunately has a very large sacral decubitus ulcer which is stage IV. Previous applications of allograft and debridement of wound have been performed. He now has additional necrotic skin and subcutaneous tissue around the edges of the wound. Presents for another debridement of the wound and placement of a allograft and wound VAC. Findings On the left side of the wound there was about a 1cm in width by 8 to 10 cm in length strip of chronic skin and subcutaneous tissues. About 60% of the base of the wound did have granulation tissue without any necrotic tissue. The tissue bled easily. There was exposed bone. After excisional debridement to the wound measured 22cm in length by 14cm in width by deepest 1.5cm in depth. Description of Procedure After informed consent was obtained patient was brought to the operating room was placed supine position on the gurney and then placed under general endotracheal anesthesia. He was then turned into the prone position on the operating table taking great care to make sure all the pressure points well padded. The area of the sacral decubitus wound was then prepped and draped in usual sterile fashion. A time-out was then performed correctly identifying the patient as well as procedure to be performed and verified that he was given perioperative IV antibiotics. The wound was then irrigated out with saline solution to remove the Betadine from the wound. I then proceeded to sharply debride in excisional fashion the necrotic skin and subcutaneous from the left side of the wound. There is also some loose bone from the sacrum at the base of the wound which was removed and then the sharp edges rounded down with a rasp. Small amount of necrotic muscle was also removed from the wound with a scalpel. I then achieved hemostasis in the wound electrocautery and then irrigated the wound once again. I then roughed up the granulation tissue at the base with the bristles side of a scrub brush. I then applied the Axial Fill allograft spreading across the whole base of the wound. A 2g vial of the allograft was used. The resulting size the wound was 22cm in transverse length by 14cm in vertical with. A total of 308 sq cm of the wound was covered with the allograft. I then placed Adaptic gauze on top of the allograft and then directly on top of the Adaptic gauze the black foam sponge was placed for the wound VAC. on top of the black sponge was clear adhesive bandages and the suction pad was placed on the right hip region. Wound VAC was then engaged and a good seal was obtained without any air leak. The total area of wound VAC placement is 308 sq cm. The patient tolerated the procedure well no complications. All sponges, needles, and instrument counts were correct at the end procedure. EBL was _30__cc. The patient was awakened and taken to recovery in stable and satisfactory condition. Implants 2 gram vial Axial Fill allograft. Estimated Blood Loss 30 Drains No Packing Yes (Wound VAC placed) Pathology None sent Complications No immediate complications Condition Stable Disposition PACU [facility] Billing Surgery - Charge Forward: Surgery Billing
[2023-05-10 16:07] LABS: Prealbumin < 3.0 mg/dL (17.6-36.0)
[2023-05-10] MEDS: cefTRIAXone 2 GM/NS 100 ML 2 GM/100 ML BAG IVPB (17:11)
[2023-05-10 17:20] LABS: Glucose Point of Care 167 mg/dl (65-105)
[2023-05-10 20:50] LABS: Glucose Point of Care 173 mg/dl (65-105)
[2023-05-11] VITALS (11 sets, daily range): BP systolic 114–128; BP diastolic 39–52; PULSE 57–71; RESP 13–18; TEMP 36.9–37.5; O2SAT 92–99
[2023-05-11] MEDS: ALBUMIN HUMAN 25% 12.5 GM/50ML 50 ML IVPB ×4 (05:08→23:14)
[2023-05-11 05:41] LABS: Basophils Percent Auto 0.2 % (0.2-1.2); Eosinophils Percent Auto 0.3 % (0-4.4); Hemoglobin 9.2 g/dL (14.0-18.0); Immature Granulocyte Absolute 0.05 K/mm3 (0.00-0.031); Immature Granulocyte Percent A 0.8 % (0-0.5); Lymphocytes Absolute Auto 1.31 K/mm3 (0.9-3.2); Mean Corpuscular HGB Conc 29.7 g/dl (32-36); Mean Corpuscular Hemoglobin 25.8 pg (26-34); Mean Corpuscular Volume 87.1 fl (80-100); Mean Platelet Volume 9.9 fl (7.4-10.4); Monocytes Absolute Auto 0.3 K/mm3 (0.1-0.6); Monocytes Percent Auto 5.2 % (2.6-8.5); Neutrophils Absolute Auto 4.3 K/mm3 (1.3-6.7); Neutrophils Percent Auto 71.5 % (45.5-73.1); Platelet Count Result 268 k/mm3 (150-375); Red Blood Count 3.56 M/mm3 (4.6-6.20); Red Cell Distribution Width 16.3 % (11.5-14.5)
[2023-05-11 05:51] LABS: Alanine Aminotransferase 13 U/L (6-50); Albumin Level 2.1 g/dL (3.5-5.1); Alkaline Phosphatase 114 U/L (38-126); Anion Gap 6 mmol/L (8-16); Aspartate Amino Transferase 26 U/L (17-59); Bilirubin,Total 0.4 mg/dL (0.2-1.3); Blood Urea Nitrogen 32 mg/dL (9-20); Calcium 8.2 mg/dL (8.4-10.2); Carbon Dioxide 20 mmol/L (22-30); Chloride 111 mmol/L (98-107); Estimated CRCL calculation 97 ml/min; Estimated Glomerular Filt Rate > 60; Glucose 156 mg/dL (65-110); Magnesium 1.8 mg/dL (1.6-2.3); Potassium 3.9 mmol/L (3.4-5.0); Sodium 137 mmol/L (137-145)
[2023-05-11 06:00] LABS: Vancomycin Trough 21.7 ug/mL (10.0-20.0)
[2023-05-11] MEDS: VANCOMYCIN 1,250 MG/NS 250 ML 1,250 MG/250 ML BAG 166.67 MG IVPB (06:12)
[2023-05-11] MEDS: LACTATED RINGERS 1,000 ML 75 ML IV CONT ×3 (06:14→23:14)
--- NOTE | 2023-05-11 07:39 | PCWOUND ---
ELVIRA NOTE Chanel ship manager at [facility] department came to the wound center and picked up Medela wound vac from their facility on Tuesday05/10/23.
[2023-05-11 08:49] LABS: Glucose Point of Care 158 mg/dl (65-105)
[2023-05-11] MEDS: VANCOMYCIN 1,000 MG/NS 250 ML 1,000 MG/250 ML BAG 250 MG IVPB ×2 (09:50→22:05)
[2023-05-11] MEDS: FINASTERIDE 5 MG TABLET PO (09:58)
[2023-05-11] MEDS: MONTELUKAST SODIUM 10 MG TABLET PO (09:59)
[2023-05-11] MEDS: LIPASE/AMYLASE/PROTEASE 12,000 UNITS CAP 1 CAP PO (09:59)
[2023-05-11] MEDS: MIDODRINE HCL 10 MG TABLET PO (09:59)
[2023-05-11] MEDS: EMPAGLIFLOZIN 25 MG TABLET PO (10:00)
[2023-05-11] MEDS: ASPIRIN 81 MG CHEWABLE TABLET PO (10:00)
[2023-05-11] MEDS: PANTOPRAZOLE 40 MG TABLET PO (10:01)
[2023-05-11] MEDS: THERAPEUTIC MULTIVITAMINS/MINERALS TAB (*BKC) 1 TABLET PO (10:01)
[2023-05-11] MEDS: PRAVASTATIN SODIUM 20 MG TABLET 40 MG PO (10:01)
[2023-05-11] MEDS: PREGABALIN (*CRX) 75 MG CAPSULE 150 MG PO (10:02)
[2023-05-11] MEDS: VITAMIN E 400 UNIT CAPSULE PO (10:02)
[2023-05-11] MEDS: TAMSULOSIN HCL 0.4 MG CAPSULE PO (10:02)
[2023-05-11] MEDS: DIGOXIN 250 MCG TABLET PO (10:06)
[2023-05-11] MEDS: AMIODARONE HCL 200 MG TABLET PO (10:06)
[2023-05-11] MEDS: COLLAGENASE OINT 30 GM TUBE 1 APPLIC TOPICAL (10:09)
[2023-05-11] MEDS: TOLNAFTATE 1% POWDER 45 GM BTL 1 APPLIC TOPICAL ×2 (10:09→20:24)
[2023-05-11] MEDS: ZINC SULFATE 220 MG CAPSULE 50 MG PO (10:10)
[2023-05-11 11:57] LABS: Glucose Point of Care 162 mg/dl (65-105)
--- NOTE | 2023-05-11 16:42 | PM.IMPN ---
Progress Note: A&P Assessment and Plan (1) Hypotension: Qualifiers: Hypotension type: unspecified hypotension type Qualified Code(s): I95.9 - Hypotension, unspecified Code(s): I95.9 - Hypotension, unspecified Status: Acute Assessment and Plan: Patient returns about 10 days after last discharge for hypotension. Per notes from admitting provider, patient appeared to be at his baseline. Blood pressure is low at times but overall has been reasonably well controlled since admission. Patient actually has been refusing his midodrine. Plans for hospice care. Continue monitor. (2) Bacteremia: Code(s): R78.81 - Bacteremia Status: Acute Assessment and Plan: Patient had positive blood cultures on admission with 1 bottle growing Staph epidermidis. A 2nd bottle is growing Gram-positive cocci with ID pending. This could be a contaminant but given his hypotension and elevated lactic acid, this could be a real infection especially given his open wound. Repeat blood cultures are negative. Continue IV antibiotics until plan is made about hospice.. (3) Sacral decubitus ulcer: Qualifiers: Pressure injury stage: stage 4 Qualified Code(s): L89.154 - Pressure ulcer of sacral region, stage 4 Code(s): L89.159 - Pressure ulcer of sacral region, unspecified stage Status: Acute Assessment and Plan: Patient again seen by General surgery underwent debridement on 05/10/2023. Wound VAC was placed. Appreciate General surgery input. (4) Paroxysmal atrial fibrillation: Code(s): I48.0 - Paroxysmal atrial fibrillation Status: Acute Assessment and Plan: Heart rate is controlled. He is refusing medications however. Patient was on Eliquis at the time of last discharge but it was not on his medication list on admission here. Unclear why [facility] the [facility]. Will hold on restarting this until plan is decided about hospice care (5) Chronic anticoagulation: Code(s): Z79.01 - [facility] (current) use of anticoagulants Status: Acute Assessment and Plan: As above (6) Type 2 diabetes mellitus: Code(s): E11.9 - Type 2 diabetes mellitus without complications Status: Acute Assessment and Plan: The patient's blood glucose was reviewed on 05/11 Glucose remains well controlled. Continue AccuCheks covering with sliding scale. Hypoglycemia protocol available as needed. Continue to monitor (7) Abnormal urinalysis: Code(s): R82.90 - Unspecified abnormal findings in urine Status: Acute Assessment and Plan: UA noted. Urine culture growing Klebsiella and E coli both with 50-100K colonies. No sensitivities listed. Continue Rocephin for now. (8) Hypocalcemia: Code(s): E83.51 - Hypocalcemia Status: Acute Assessment and Plan: Low calcium related to the low albumin. Calcium normal when corrected. Subjective Date/time seen: 05/11/23 16:42 Interval history: 73-year-old male who presented to the ED with lethargy and hypotension. Assuming care. Chart reviewed. Patient is alert but confused. History is unreliable. Spoke with the daughter at bedside about plan of care and prognosis. She has decided to proceed with hospice care Review of Systems Review of Systems: ROS unobtainable: Yes unobtainable due to mental status Exam Narrative: General:?Chronically ill-appearing male lying almost flat in bed Resp:?Lungs are clear to auscultation bilaterally anteriorly. CV:?RRR S1-S2 GI:??Abdomen is soft, nontender, and nondistended with positive bowel sounds. :?Whyte catheter draining cloudy yellow/obie urine. Skin:??Warm and dry. Generalized pallor. Wound VAC is covering a sacral decubitus ulcer. Mild hyperpigmentation of the lower legs, skin is dry and flaky. Scattered upper extremity bruises and abrasions. Extremities:??1+ edema of the
[2023-05-11] MEDS: cefTRIAXone 2 GM/NS 100 ML 2 GM/100 ML BAG IVPB (16:46)
[2023-05-11 17:08] LABS: Glucose Point of Care 151 mg/dl (65-105)
[2023-05-11 20:25] LABS: Glucose Point of Care 138 mg/dl (65-105)
[2023-05-11] MEDS: METOPROLOL TARTRATE 50 MG TAB PO (22:08)
[2023-05-12] VITALS (13 sets, daily range): BP systolic 97–118; BP diastolic 42–46; PULSE 51–91; RESP 14–18; TEMP 36.1–37.4; O2SAT 96–98
[2023-05-12] MEDS: ALBUMIN HUMAN 25% 12.5 GM/50ML 50 ML IVPB ×4 (05:08→23:43)
[2023-05-12 06:03] LABS: Estimated CRCL calculation 110 ml/min; Estimated Glomerular Filt Rate > 60
[2023-05-12 08:31] LABS: Glucose Point of Care 142 mg/dl (65-105)
--- NOTE | 2023-05-12 08:51 | PM.PNGS ---
Progress Note: A&P Assessment and Plan (1) Decubitus ulcer: Code(s): L89.90 - Pressure ulcer of unspecified site, unspecified stage Status: Acute Assessment and Plan: Large sacral decubitus ulcer stage IV is not likely heal given the patient's present on her state. I discussed this in detail with the patient and his daughter at the bedside. Patient is refusing placement of a PEG feeding tube to supplement his nutrition. Given that his albumin is 2 he is now nourished and debilitated I think his overall clinical output is poor. Patient is daughter talking about hospice and I feel that would be an appropriate choice so that he can go home and have hospice care at home. At the time of discharge to hospice at home will remove the wound VAC and just go to once or twice a day dressing changes with normal saline gauze to the wound. (2) Severe malnutrition: Code(s): E43 - Unspecified severe protein-calorie malnutrition Status: Acute Assessment and Plan: Albumin is 2. Patient is not improving from a nutritional standpoint. He is refusing a feeding tube. He will likely continue to decline over time and another episode of sepsis or eventual multi-system organ failure is likely the overall end result with a terminal prognosis. Agree with plans for hospice. Subjective Subjective Date/Time Seen: 05/12/23 08:51 Interval history: Appears to be much more responsive this morning. He is awake and answering questions appropriately. Patient's daughter is at bedside. He wants to eat something this morning. I did have a discussion with the patient and his daughter over last few days and again this morning about placement of feeding tube for supplemental nutrition in order to gain strength and try to heal the sacral decubitus wound. Patient stated that he did not want have a feeding tube placed. Exam Skin: Other: Wound VAC dressing in place. No air leak. Drainage is serous. Objective Data Vital Signs Vital Signs: Vital Signs - 24 hr 05/11/23 10:06 05/11/23 10:06 05/11/23 12:00 Temperature Pulse Rate 61 61 59 L Respiratory Rate Blood Pressure Pulse Oximetry 05/11/23 15:24 05/11/23 16:00 05/11/23 20:00 Temperature 36.9 C Pulse Rate 70 63 71 Respiratory Rate 18 Blood Pressure 114/46 L Pulse Oximetry 96 05/11/23 21:20 05/11/23 22:08 05/12/23 00:00 Temperature 37.5 C Pulse Rate 70 66 64 Respiratory Rate 13 Blood Pressure 128/52 L Pulse Oximetry 99 05/12/23 04:00 05/12/23 05:06 Temperature 37.4 C Pulse Rate 62 63 Respiratory Rate 14 Blood Pressure 118/44 L Pulse Oximetry 98 Intake/Output Intake/Output: Intake & Output 05/09/23 05/10/23 05/11/23 05/12/23 23:59 23:59 23:59 23:59 Intake Total 3710 2670 4050 290 Output Total 1999 2250 2100 900 Balance 1272 717 9863 -610 Meds/Results Medications: Active Medications Generic Name Dose Route Start Last Admin Trade Name Freq PRN Reason Stop Dose Admin Acetaminophen 650 mg 05/08/23 10:16 Acetaminophen 325 Mg Tablet PO Q6H PRN Mild Pain (1-3) Or Fever Amiodarone HCl 200 mg 05/08/23 11:00 05/11/23 10:06 Amiodarone Hcl 200 Mg Tablet PO 200 mg DAILY@0800 [facility] Administration Lipase/Protease/Amylase 1 cap 05/08/23 12:00 05/11/23 16:45 Lipase/Amylase/Protease 12,000 Units Cap PO Not Given [facility] Aspirin 81 mg 05/08/23 11:00 05/11/23 10:00 Aspirin 81 Mg Chewable Tablet PO 81 mg DAILY@0800 [facility] Administration Bisacodyl 5 mg 05/08/23 10:16 Bisacodyl 5 Mg Tablet Ec PO QAM PRN Constipation Collagenase 1 applic 05/08/23 12:00 05/11/23 10:09 Collagenase Oint 30 Gm Tube TOPICAL 1 applic DAILY [facility] Administration Dextrose 12.5 gm 05/07/23 18:24 Dextrose 50% 25 Gm/50 Ml Syringe IV PUSH PRN PRN Hypoglycemia Protocol Digoxin 250 mcg 05/09/23 09:00 05/11/23 10:06 Digoxin 250 Mcg Tablet P
[2023-05-12] MEDS: THERAPEUTIC MULTIVITAMINS/MINERALS TAB (*BKC) 1 TABLET PO (09:16)
[2023-05-12] MEDS: ASPIRIN 81 MG CHEWABLE TABLET PO (09:16)
[2023-05-12] MEDS: PANTOPRAZOLE 40 MG TABLET PO ×2 (09:16→17:33)
[2023-05-12] MEDS: LIPASE/AMYLASE/PROTEASE 12,000 UNITS CAP 1 CAP PO ×3 (09:16→17:32)
[2023-05-12] MEDS: MONTELUKAST SODIUM 10 MG TABLET PO (09:16)
[2023-05-12] MEDS: FINASTERIDE 5 MG TABLET PO (09:16)
[2023-05-12] MEDS: EMPAGLIFLOZIN 25 MG TABLET PO (09:16)
[2023-05-12] MEDS: PRAVASTATIN SODIUM 20 MG TABLET 40 MG PO (09:16)
[2023-05-12] MEDS: DIGOXIN 250 MCG TABLET PO (09:16)
[2023-05-12] MEDS: VITAMIN E 400 UNIT CAPSULE PO (09:16)
[2023-05-12] MEDS: MIDODRINE HCL 10 MG TABLET PO ×3 (09:16→17:32)
[2023-05-12] MEDS: metFORMIN HCL XR 500 MG TAB.SR.24H 2000 MG PO (09:16)
[2023-05-12] MEDS: TAMSULOSIN HCL 0.4 MG CAPSULE PO (09:17)
[2023-05-12] MEDS: AMIODARONE HCL 200 MG TABLET PO (09:17)
[2023-05-12] MEDS: PREGABALIN (*CRX) 75 MG CAPSULE 150 MG PO (09:17)
[2023-05-12] MEDS: OMEGA 3 POLYUNSAT FATTY ACIDS 1 GM CAP 4 GM PO (09:18)
[2023-05-12] MEDS: oxyCODONE/ACETAMINOPHEN (*CRX) 5-325 MG TABLET 1 TABLET PO (09:24)
[2023-05-12] MEDS: VANCOMYCIN 1,000 MG/NS 250 ML 1,000 MG/250 ML BAG 250 MG IVPB (09:29)
[2023-05-12] MEDS: METOPROLOL TARTRATE 50 MG TAB PO (11:41)
[2023-05-12] MEDS: TOLNAFTATE 1% POWDER 45 GM BTL 1 APPLIC TOPICAL ×2 (11:42→21:55)
[2023-05-12] MEDS: droNABinol (*CRX) 2.5 MG CAPSULE PO ×2 (11:42→17:32)
[2023-05-12] MEDS: COLLAGENASE OINT 30 GM TUBE 1 APPLIC TOPICAL (11:42)
--- NOTE | 2023-05-12 12:27 | PM.IMPN ---
Progress Note: A&P Assessment and Plan (1) Hypotension: Qualifiers: Hypotension type: unspecified hypotension type Qualified Code(s): I95.9 - Hypotension, unspecified Code(s): I95.9 - Hypotension, unspecified Status: Acute Assessment and Plan: Patient returns about 10 days after last discharge for hypotension. Per notes from admitting provider, patient appeared to be at his baseline. Blood pressure is low at times but overall has been reasonably well controlled since admission. Patient actually has been refusing his midodrine. Patient still thinking about hospice care but wants to return home. He does not want a G-tube. Continue monitor. Discussed code status and he wants to talk it over with his family. Continue full code. (2) Bacteremia: Code(s): R78.81 - Bacteremia Status: Acute Assessment and Plan: Patient had positive blood cultures on admission (05/07) with 1 bottle growing Staph epidermidis. A 2nd bottle is growing Gram-positive cocci in anaerobic bottle with ID pending (spoke with lab and they had to re-plate it to ID the organism). This could be a contaminant but given his hypotension and elevated lactic acid, this could be a real infection especially given his open wound. Repeat blood cultures (05/10) are positve (1of2) for GPC in clusters aerobic bottle. Continue IV antibiotics until plan is made about hospice.. (3) Sacral decubitus ulcer: Qualifiers: Pressure injury stage: stage 4 Qualified Code(s): L89.154 - Pressure ulcer of sacral region, stage 4 Code(s): L89.159 - Pressure ulcer of sacral region, unspecified stage Status: Acute Assessment and Plan: Patient again seen by General surgery and underwent debridement on 05/10/2023. Wound VAC was placed. Appreciate General surgery input. Discussed about assisted care plan with surgery and felt that without better nutrition, that this wound would not have a chance to heal. GTube discussed with patient by Genmaya but patient refused GTUbe. (4) Abnormal urinalysis: Code(s): R82.90 - Unspecified abnormal findings in urine Status: Acute Assessment and Plan: UA noted. Urine culture growing Klebsiella and E coli both with 50-100K colonies. Spoke with lab and sensitivities sent. Stop Rocephin and add Ertapenem. (5) Paroxysmal atrial fibrillation: Code(s): I48.0 - Paroxysmal atrial fibrillation Status: Acute Assessment and Plan: Heart rate is controlled. He is refusing medications at times. Patient was on Eliquis at the time of last discharge but it was not on his medication list on admission here. Unclear why Eliquis was not continued at the residential. Will hold on restarting this until plan is decided about hospice care (6) Chronic anticoagulation: Code(s): Z79.01 - senior living (current) use of anticoagulants Status: Acute Assessment and Plan: As above (7) Type 2 diabetes mellitus: Code(s): E11.9 - Type 2 diabetes mellitus without complications Status: Acute Assessment and Plan: The patient's blood glucose was reviewed on 05/12 Glucose remains well controlled. Continue AccuCheks covering with sliding scale. Hypoglycemia protocol available as needed. Continue to monitor (8) Hypocalcemia: Code(s): E83.51 - Hypocalcemia Status: Acute Assessment and Plan: Low calcium related to the low albumin. Calcium normal when corrected. Subjective Date/time seen: 05/12/23 12:27 Interval history: 73-year-old male who presented to the ED with lethargy and hypotension. Patient is more alert and mostly oriented today. Slept some. No CP or SOB. Able to eat some of his breakfast today. Exam Narrative: AF 99.3 118/44 91 14 98% RA General:?NARD Resp:?Lungs are clear anteriorly and in the flanks CV:?RRR S1-S2 GI:??Abdomen is soft, nontender, and nondistended with
[2023-05-12 12:30] LABS: Glucose Point of Care 187 mg/dl (65-105)
[2023-05-12] MEDS: ZINC SULFATE 220 MG CAPSULE 50 MG PO (12:47)
[2023-05-12] MEDS: ERTAPENEM 1 GM/NS 50 ML 1 GM/50 ML BAG IVPB (14:13)
[2023-05-12 17:48] LABS: Glucose Point of Care 185 mg/dl (65-105)
[2023-05-12 21:09] LABS: Glucose Point of Care 207 mg/dl (65-105)
[2023-05-12 22:56] LABS: Vancomycin Trough 24.6 ug/mL (10.0-20.0)
[2023-05-12] MEDS: LACTATED RINGERS 1,000 ML 75 ML IV CONT (23:42)
[2023-05-13] VITALS (13 sets, daily range): BP systolic 100–121; BP diastolic 45–52; PULSE 4–95; RESP 14–16; TEMP 36.1–36.6; O2SAT 96–97
[2023-05-13 05:49] LABS: Basophils Percent Auto 0.1 % (0.2-1.2); Eosinophils Percent Auto 0.4 % (0-4.4); Hemoglobin 9.1 g/dL (14.0-18.0); Immature Granulocyte Absolute 0.04 K/mm3 (0.00-0.031); Immature Granulocyte Percent A 0.6 % (0-0.5); Lymphocytes Absolute Auto 1.37 K/mm3 (0.9-3.2); Lymphocytes Percent Auto 20.4 % (18.3-44.2); Mean Corpuscular HGB Conc 29.4 g/dl (32-36); Mean Corpuscular Volume 88.6 fl (80-100); Mean Platelet Volume 10.5 fl (7.4-10.4); Monocytes Absolute Auto 0.5 K/mm3 (0.1-0.6); Monocytes Percent Auto 6.7 % (2.6-8.5); Neutrophils Absolute Auto 4.8 K/mm3 (1.3-6.7); Neutrophils Percent Auto 71.8 % (45.5-73.1); Platelet Count Result 221 k/mm3 (150-375); Red Cell Distribution Width 16.8 % (11.5-14.5); White Blood Count 6.7 K/mm3 (4.5-10.0)
[2023-05-13 06:00] LABS: Alanine Aminotransferase 12 U/L (6-50); Albumin Level 2.3 g/dL (3.5-5.1); Alkaline Phosphatase 97 U/L (38-126); Anion Gap 7 mmol/L (8-16); Aspartate Amino Transferase 20 U/L (17-59); Bilirubin,Total 0.4 mg/dL (0.2-1.3); Blood Urea Nitrogen 22 mg/dL (9-20); Carbon Dioxide 21 mmol/L (22-30); Chloride 113 mmol/L (98-107); Estimated CRCL calculation 116 ml/min; Estimated Glomerular Filt Rate > 60; Glucose 167 mg/dL (65-110); Magnesium 1.7 mg/dL (1.6-2.3); Phosphorus 1.9 mg/dL (2.5-4.5); Potassium 3.5 mmol/L (3.4-5.0); Sodium 141 mmol/L (137-145)
[2023-05-13 06:27] LABS: Anisocytosis 1+ (NORMAL); Hypochromasia 1+ (NORMAL); Platelet Estimate Adequate (Adequate); Schistocytes None Seen (NORMAL)
[2023-05-13] MEDS: ALBUMIN HUMAN 25% 12.5 GM/50ML 50 ML IVPB ×3 (06:59→17:28)
[2023-05-13 08:19] LABS: Glucose Point of Care 175 mg/dl (65-105)
[2023-05-13] MEDS: VANCOMYCIN 1,000 MG/NS 250 ML 1,000 MG/250 ML BAG 250 MG IVPB (09:44)
[2023-05-13] MEDS: ASPIRIN 81 MG CHEWABLE TABLET PO (09:45)
[2023-05-13] MEDS: TAMSULOSIN HCL 0.4 MG CAPSULE PO (09:45)
[2023-05-13] MEDS: VITAMIN E 400 UNIT CAPSULE PO (09:45)
[2023-05-13] MEDS: MONTELUKAST SODIUM 10 MG TABLET PO (09:45)
[2023-05-13] MEDS: PRAVASTATIN SODIUM 20 MG TABLET 40 MG PO (09:45)
[2023-05-13] MEDS: AMIODARONE HCL 200 MG TABLET PO (09:45)
[2023-05-13] MEDS: MIDODRINE HCL 10 MG TABLET PO ×3 (09:46→17:27)
[2023-05-13] MEDS: POTASSIUM/PHOSPHORUS/SODIUM 1.5 GM PACKET 1 PACKET PO ×2 (09:46→12:59)
[2023-05-13] MEDS: LIPASE/AMYLASE/PROTEASE 12,000 UNITS CAP 1 CAP PO ×3 (09:46→17:27)
[2023-05-13] MEDS: THERAPEUTIC MULTIVITAMINS/MINERALS TAB (*BKC) 1 TABLET PO (09:46)
[2023-05-13] MEDS: EMPAGLIFLOZIN 25 MG TABLET PO (09:46)
[2023-05-13] MEDS: FINASTERIDE 5 MG TABLET PO (09:46)
[2023-05-13] MEDS: PANTOPRAZOLE 40 MG TABLET PO ×2 (09:46→17:28)
[2023-05-13] MEDS: DIGOXIN 250 MCG TABLET PO (09:46)
[2023-05-13] MEDS: PREGABALIN (*CRX) 75 MG CAPSULE 150 MG PO (09:47)
[2023-05-13] MEDS: TOLNAFTATE 1% POWDER 45 GM BTL 1 APPLIC TOPICAL ×2 (09:57→20:22)
[2023-05-13] MEDS: metFORMIN HCL XR 500 MG TAB.SR.24H 2000 MG PO (10:19)
[2023-05-13] MEDS: OMEGA 3 POLYUNSAT FATTY ACIDS 1 GM CAP 4 GM PO (10:19)
[2023-05-13] MEDS: ZINC SULFATE 220 MG CAPSULE PO (10:19)
--- NOTE | 2023-05-13 10:37 | PCNFU ---
Nutrition Follow-Up Complete: Severe protein calorie malnutrition related to loss of appetite, increased needs from wound healing as evidenced by 17% weight loss in 1 month; inadequate intake <75% needs >1 month; NFPE findings of severe muscle wasting and fat loss; poorly healing wounds Goal: Improved PO intake at least 75% meals and supplements to support wound healing Patient has limited progress towards goal. We will continue current goal. Pt current nutrition is DBCC with Glucerna shakes BID and Reinier BID. Last recorded weight is 72.6 kg, up from 67.5 kg on admit. Bowel Motility:+Bm reported 05/13 Labs Reviewed:Glu 167, Cr 0.5,BUN 22, Alb 2.3,Hgb 9.1, Hct 31.8 Meds Noted:MVI, Lasix, Jardiance, LR, Glucophage. Skin: Stage IV-Saccum Additional Notes: Spoke with patient today, he is current with a DBCC. Minimal intake but drinking some supplements. PO intake encouraged. He is not wanting a PEG. Hospice has been consulted. Monitoring intakes, weights, labs, supplement tolerance, plan of care Follow up in 5 days
--- NOTE | 2023-05-13 10:40 | PM.PNGS ---
Progress Note: A&P Assessment and Plan (1) Decubitus ulcer: Code(s): L89.90 - Pressure ulcer of unspecified site, unspecified stage Status: Acute Assessment and Plan: Nutrition continues to be poor. He would need a PEG for supplemental feedings if there is any hope to heal his wound. At this time is refusing both placement of a feeding tube he is undecided about home hospice care. For now continue the wound VAC and if there is no decision on hospice by Tuesday then the VAC will need to be changed at the bedside. If he is discharged home to home hospice then we removed the wound VAC dressing in the hospital for these and then switched to normal saline moist to dry dressings while at home on hospice. Subjective Subjective Date/Time Seen: 05/13/23 10:40 Interval history: Patient without acute changes. Eating some food and Ensure for breakfast today. From nursing I hear that patient is deferring his decision for hospice care at this time. He still is tissue using a feeding tube. Wound VAC is in place and functioning well. Exam Skin: Other: Sacral decubitus wound dressed with wound VAC. Seal is good. Drainage is old serous bloody fluid. Objective Data Vital Signs Vital Signs: Vital Signs - 24 hr 05/12/23 11:41 05/12/23 12:05 05/12/23 16:00 Temperature 36.1 C L Pulse Rate 66 91 51 L Respiratory Rate 16 Blood Pressure 97/42 L Pulse Oximetry 96 Oxygen Delivery 05/12/23 16:04 05/12/23 20:06 05/12/23 23:45 Temperature 36.6 C Pulse Rate 59 L 72 72 Respiratory Rate 18 Blood Pressure 98/46 L Pulse Oximetry 97 Oxygen Delivery 05/12/23 20:00 05/13/23 05:36 05/12/23 20:00 Temperature 36.1 C L Pulse Rate 95 64 Respiratory Rate 16 Blood Pressure 110/48 L Pulse Oximetry 96 Oxygen Delivery Room Air 05/13/23 00:00 05/13/23 04:00 05/13/23 09:45 Temperature Pulse Rate 74 77 74 Respiratory Rate Blood Pressure Pulse Oximetry Oxygen Delivery 05/13/23 09:46 Temperature Pulse Rate 4 L Respiratory Rate Blood Pressure Pulse Oximetry Oxygen Delivery Intake/Output Intake/Output: Intake & Output 05/10/23 05/11/23 05/12/23 05/13/23 23:59 23:59 23:59 23:59 Intake Total 2670 4050 2170 290 Output Total 2250 2100 2600 950 Balance 420 9564 -245 -337 Meds/Results Medications: Active Medications Generic Name Dose Route Start Last Admin Trade Name Freq PRN Reason Stop Dose Admin Acetaminophen 650 mg 05/08/23 10:16 Acetaminophen 325 Mg Tablet PO Q6H PRN pain of 1-5 Amiodarone HCl 200 mg 05/08/23 11:00 05/13/23 09:45 Amiodarone Hcl 200 Mg Tablet PO 200 mg DAILY@0800 [facility] Administration Lipase/Protease/Amylase 1 cap 05/08/23 12:00 05/13/23 09:46 Lipase/Amylase/Protease 12,000 Units Cap PO 1 cap TIDWM YESSICA Administration Aspirin 81 mg 05/08/23 11:00 05/13/23 09:45 Aspirin 81 Mg Chewable Tablet PO 81 mg DAILY@0800 [facility] Administration Bisacodyl 5 mg 05/08/23 10:16 Bisacodyl 5 Mg Tablet Ec PO QAM PRN Constipation Collagenase 1 applic 05/08/23 12:00 05/12/23 11:42 Collagenase Oint 30 Gm Tube TOPICAL 1 applic DAILY YESSICA Administration Dextrose 12.5 gm 05/07/23 18:24 Dextrose 50% 25 Gm/50 Ml Syringe IV PUSH PRN PRN Hypoglycemia Protocol Digoxin 250 mcg 05/09/23 09:00 05/13/23 09:46 Digoxin 250 Mcg Tablet PO 250 mcg QAM YESSICA Administration Dronabinol 2.5 mg 05/08/23 18:00 05/12/23 17:32 Dronabinol (*Crx) 2.5 Mg Capsule PO 2.5 mg 1200,1800 YESSICA Administration Empagliflozin 25 mg 05/08/23 11:00 05/13/23 09:46 Empagliflozin 25 Mg Tablet PO 25 mg DAILY YESSICA Administration Ergocalciferol 50,000 units 05/18/23 09:00 Ergocalciferol 50,000 Units Capsule PO WEEKLY [facility] Fentanyl Citrate 25 mcg 05/09/23 08:05 Fentanyl Citrate Inj (*Crx) 100 Mcg/2 Ml Vial IV PUSH Q2M PRN
[2023-05-13] MEDS: METOPROLOL TARTRATE 50 MG TAB PO (11:32)
[2023-05-13] MEDS: ERTAPENEM 1 GM/NS 50 ML 1 GM/50 ML BAG IVPB (11:32)
[2023-05-13] MEDS: droNABinol (*CRX) 2.5 MG CAPSULE PO ×2 (11:32→17:28)
[2023-05-13 12:23] LABS: Glucose Point of Care 219 mg/dl (65-105)
--- NOTE | 2023-05-13 15:51 | PM.IMPN ---
Progress Note: A&P Assessment and Plan (1) Hypotension: Qualifiers: Hypotension type: unspecified hypotension type Qualified Code(s): I95.9 - Hypotension, unspecified Code(s): I95.9 - Hypotension, unspecified Status: Acute Assessment and Plan: Patient returns about 10 days after last discharge for hypotension. Per notes from admitting provider, patient appeared to be at his baseline. Blood pressure is low at times but overall has been reasonably well controlled since admission. Patient actually has been refusing his midodrine. Continue monitor. (2) Bacteremia: Code(s): R78.81 - Bacteremia Status: Acute Assessment and Plan: Patient had positive blood cultures on admission (05/07) with 1 bottle growing Staph epidermidis. A 2nd bottle is growing Gram-variable bacilli in anaerobic bottle but unable to ID. This could be a contaminant but given his hypotension and elevated lactic acid, this could be a real infection especially given his open wound. Repeat blood cultures (05/10) are positive (1of2) for GPC in clusters aerobic bottle. Continue IV antibiotics until plan is made about hospice.. (3) Sacral decubitus ulcer: Qualifiers: Pressure injury stage: stage 4 Qualified Code(s): L89.154 - Pressure ulcer of sacral region, stage 4 Code(s): L89.159 - Pressure ulcer of sacral region, unspecified stage Status: Acute Assessment and Plan: Patient again seen by General surgery and underwent debridement on 05/10/2023. Wound VAC was placed. Appreciate General surgery input. Discussed about senior living care plan with surgery and felt that without better nutrition, that this wound would not have a chance to heal. GTube discussed with patient by GenJennifer but patient refused GTUbe. (4) Abnormal urinalysis: Code(s): R82.90 - Unspecified abnormal findings in urine Status: Acute Assessment and Plan: UA noted. Urine culture growing Klebsiella and E coli both with 50-100K colonies. Spoke with lab and sensitivities sent. Continue Ertapenem. (5) Paroxysmal atrial fibrillation: Code(s): I48.0 - Paroxysmal atrial fibrillation Status: Acute Assessment and Plan: Heart rate is controlled. He is refusing medications at times. Patient was on Eliquis at the time of last discharge but it was not on his medication list on admission here. Unclear why Eliquis was not continued at the correction. Will resume (6) Chronic anticoagulation: Code(s): Z79.01 - [facility] (current) use of anticoagulants Status: Acute Assessment and Plan: As above (7) Type 2 diabetes mellitus: Code(s): E11.9 - Type 2 diabetes mellitus without complications Status: Acute Assessment and Plan: The patient's blood glucose was reviewed on 05/13 Glucose remains well controlled. Continue AccuCheks covering with sliding scale. Hypoglycemia protocol available as needed. Continue to monitor (8) Hypocalcemia: Code(s): E83.51 - Hypocalcemia Status: Acute Assessment and Plan: Low calcium related to the low albumin. Calcium normal when corrected. Subjective Date/time seen: 05/13/23 15:51 Interval history: 73-year-old male who presented to the ED with lethargy and hypotension. Patient more confused today. He denies CP or SOB. Pain controlled. Exam Narrative: AF 97.9 121/52 74 14 97% RA General:?NARD lying flat in bed Resp:?Lungs are clear anteriorly and in the flanks CV:?RRR S1-S2 GI:??Abdomen is soft, nontender, and nondistended with positive bowel sounds. :?Whyte catheter draining clear dark yellow urine. Extremities:??1+ edema of the lower legs Neurological:??Alert, confused Psychiatric:??Pleasant and cooperative Skin:??Warm and dry. Generalized pallor. Wound VAC is covering a sacral decubitus ulcer. Mild hyperpigmentation of the lower legs, skin is dry and flaky. S
[2023-05-13] MEDS: COLLAGENASE OINT 30 GM TUBE 1 APPLIC TOPICAL (17:27)
[2023-05-13 17:29] LABS: Glucose Point of Care 163 mg/dl (65-105)
[2023-05-13] MEDS: APIXABAN 5 MG TABLET PO (20:22)
[2023-05-13 21:27] LABS: Glucose Point of Care 169 mg/dl (65-105)
[2023-05-14] MEDS: ALBUMIN HUMAN 25% 12.5 GM/50ML 50 ML IVPB ×2 (00:15→05:25)
[2023-05-14] MEDS: VANCOMYCIN 1,000 MG/NS 250 ML 1,000 MG/250 ML BAG 250 MG IVPB (01:09)
[2023-05-14 05:08] VITALS: BP 111/53; PULSE 71; RESP 18; TEMP 36.6; O2SAT 97
[2023-05-14] MEDS: LACTATED RINGERS 1,000 ML 75 ML IV CONT ×2 (05:24→09:43)
[2023-05-14 06:11] LABS: Estimated CRCL calculation 116 ml/min; Estimated Glomerular Filt Rate > 60
[2023-05-14 08:20] LABS: Glucose Point of Care 158 mg/dl (65-105)
[2023-05-14] MEDS: FINASTERIDE 5 MG TABLET PO (09:34)
[2023-05-14] MEDS: APIXABAN 5 MG TABLET PO (09:34)
[2023-05-14] MEDS: VITAMIN E 400 UNIT CAPSULE PO (09:34)
[2023-05-14] MEDS: EMPAGLIFLOZIN 25 MG TABLET PO (09:34)
[2023-05-14 09:35] VITALS: PULSE 75
[2023-05-14] MEDS: PRAVASTATIN SODIUM 20 MG TABLET 40 MG PO (09:35)
[2023-05-14] MEDS: THERAPEUTIC MULTIVITAMINS/MINERALS TAB (*BKC) 1 TABLET PO (09:35)
[2023-05-14] MEDS: MONTELUKAST SODIUM 10 MG TABLET PO (09:35)
[2023-05-14] MEDS: PREGABALIN (*CRX) 75 MG CAPSULE 150 MG PO (09:35)
[2023-05-14] MEDS: ZINC SULFATE 220 MG CAPSULE PO (09:35)
[2023-05-14] MEDS: AMIODARONE HCL 200 MG TABLET PO (09:35)
[2023-05-14] MEDS: PANTOPRAZOLE 40 MG TABLET PO (09:35)
[2023-05-14] MEDS: TAMSULOSIN HCL 0.4 MG CAPSULE PO (09:37)
[2023-05-14] MEDS: metFORMIN HCL XR 500 MG TAB.SR.24H 2000 MG PO (09:37)
[2023-05-14] MEDS: ASPIRIN 81 MG CHEWABLE TABLET PO (09:37)
[2023-05-14 09:38] VITALS: PULSE 75
[2023-05-14] MEDS: MIDODRINE HCL 10 MG TABLET PO ×2 (09:38→13:05)
[2023-05-14] MEDS: LIPASE/AMYLASE/PROTEASE 12,000 UNITS CAP 1 CAP PO ×2 (09:38→13:05)
[2023-05-14] MEDS: DIGOXIN 250 MCG TABLET PO (09:38)
[2023-05-14] MEDS: COLLAGENASE OINT 30 GM TUBE 1 APPLIC TOPICAL (09:38)
[2023-05-14] MEDS: TOLNAFTATE 1% POWDER 45 GM BTL 1 APPLIC TOPICAL (09:39)
[2023-05-14] MEDS: ERTAPENEM 1 GM/NS 50 ML 1 GM/50 ML BAG IVPB (09:39)
[2023-05-14] MEDS: OMEGA 3 POLYUNSAT FATTY ACIDS 1 GM CAP 4 GM PO (10:29)
[2023-05-14 10:30] VITALS: PULSE 76
[2023-05-14] MEDS: METOPROLOL TARTRATE 50 MG TAB PO (10:30)
[2023-05-14 12:35] LABS: Glucose Point of Care 152 mg/dl (65-105)
[2023-05-14] MEDS: oxyCODONE/ACETAMINOPHEN (*CRX) 5-325 MG TABLET 1 TABLET PO (13:05)
[2023-05-14] MEDS: droNABinol (*CRX) 2.5 MG CAPSULE PO (13:10)
--- NOTE | 2023-05-14 14:07 | PM.DS ---
DS: Admitting Diagnosis Discharge Date 05/14/23 Admitting Diagnosis Lethargy and hypotension? DS: Discharge Diagnosis Discharge Diagnosis (1) Hypotension: Qualifiers: Hypotension type: unspecified hypotension type Qualified Code(s): I95.9 - Hypotension, unspecified Code(s): I95.9 - Hypotension, unspecified Status: Acute (2) Bacteremia: Code(s): R78.81 - Bacteremia Status: Acute (3) Sacral decubitus ulcer: Qualifiers: Pressure injury stage: stage 4 Qualified Code(s): L89.154 - Pressure ulcer of sacral region, stage 4 Code(s): L89.159 - Pressure ulcer of sacral region, unspecified stage Status: Acute (4) Abnormal urinalysis: Code(s): R82.90 - Unspecified abnormal findings in urine Status: Acute (5) Paroxysmal atrial fibrillation: Code(s): I48.0 - Paroxysmal atrial fibrillation Status: Acute (6) Chronic anticoagulation: Code(s): Z79.01 - care home (current) use of anticoagulants Status: Acute (7) Type 2 diabetes mellitus: Code(s): E11.9 - Type 2 diabetes mellitus without complications Status: Acute (8) Hypocalcemia: Code(s): E83.51 - Hypocalcemia Status: Acute DS: Summary Hospital Course Reason for hospitalization: 73-year-old male who presented to the ED with lethargy and hypotension.? Please see H&P for details. Hospital Course: Patient returns about 10 days after last discharge for hypotension.? Per notes from admitting provider, patient appeared to be at his baseline.? Blood pressure was low at times but overall has been reasonably well controlled since admission.?Patient has a large sacral decubitus ulcer and was again seen by General surgery and underwent debridement on 05/10/2023.? Wound VAC was placed.? Discussed about prison care plan with surgery and felt that without better nutrition, that this wound would not have a chance to heal. GTube discussed with patient by Kris but patient refused GTUbe. Patient had positive blood cultures on admission (05/07) with 1 bottle growing Staph epidermidis.? A 2nd bottle is growing Gram-variable bacilli in anaerobic bottle but unable to ID.? This could be a contaminant but given his hypotension and elevated lactic acid, this could be a real infection especially given his open wound.? Repeat blood cultures (05/10) are positive (1of2) for Staph warneri.? BCx 05/12 are NGTD. UA noted.? Urine culture growing Klebsiella and E coli both with 50-100K colonies sensitive to Ertapenem. Patient was intermittently confused during his hospital course. Daughter at bedside most of the hospital course and she wants to proceed with hospice. Arrangements were made and patient was able to be discharged home on hospice care. Status at Discharge Cognitive/behavioral status at discharge: stable Time Spent with Patient Time attestation: Total time spent providing and/or coordinating discharge services: 35 minutes Time spent: Greater than 30 minutes Exam Narrative: AF 97.9 111/53 76 18 97% RA Gen -?NARD Chest - clear anteriorly. nml RR CV -?RRR S1-S2 Abd - soft, NT - Whyte catheter draining dark yellow, cloudy urine . Ext -?trace edema of the lower legs Neuro - Alert, oriented x4. Psych -?Pleasant and cooperative Skin - Warm and dry. Wound VAC in place DS: Data Data Completed and Pending Labs on day of discharge: Labs from last 24 hours 05/14/23 05/14/23 05/14/23 12:33 08:15 05:49 Creatinine 0.50 L Estim Creat Clear Calc 116 Estimated GFR > 60 POC Capillary Glucose 152 H 158 H 05/13/23 05/13/23 20:42 17:24 Creatinine Estim Creat Clear Calc Estimated GFR POC Capillary Glucose 169 H 163 H Preliminary micro results at discharge 05/10/23 15:06 Blood Culture - Preliminary Blood Staphylococcus warneri 05/12/23 21:16 Blood Culture - Preliminary Blood 05/12/23 21:16 Blood Culture - Prel
[2023-05-14 14:25] VITALS: BP 108/40; PULSE 65; RESP 20; TEMP 36.6; O2SAT 99
== END 2023-05-14 15:35 | disposition hospice, home (50) | DRG 264 ==
LOC: ANHED 18:30 → ANH3MED 18:49
PROVIDERS: Physician Assistant; Surgery; Admitting Provider Internal Medicine; Emergency Provider Preventive Medicine Aerospace Medicine; PCP Internal Medicine; Visit Provider Internal Medicine
PROC: 0QB10ZZ Excision of Sacrum, Open Approach (ICD-10-PCS; principal; 2023-05-09 11:00)
DX: I95.9 Hypotension, unspecified (principal); E43 Unspecified severe protein-calorie malnutrition; L89.154 Pressure ulcer of sacral region, stage 4; R78.81 Bacteremia; B95.7 Other staphylococcus as the cause of diseases classified elsewhere; R82.71 Bacteriuria; B96.1 Klebsiella pneumoniae [K. pneumoniae] as the cause of diseases classified elsewhere; B96.20 Unspecified Escherichia coli [E. coli] as the cause of diseases classified elsewhere; I48.0 Paroxysmal atrial fibrillation; R82.90 Unspecified abnormal findings in urine; R33.9 Retention of urine, unspecified; E83.51 Hypocalcemia; E11.9 Type 2 diabetes mellitus without complications; Z20.822 Contact with and (suspected) exposure to COVID-19; Z79.01 Long term (current) use of anticoagulants; Z86.718 Personal history of other venous thrombosis and embolism; Z85.828 Personal history of other malignant neoplasm of skin; Z87.891 Personal history of nicotine dependence; Z68.22 Body mass index [BMI] 22.0-22.9, adult; Z79.82 Long term (current) use of aspirin
CPT/HCPCS: 36415; 36430; 71045; 80048; 80053; 80162; 80202; 81001; 82565; 82948; 83605; 83735; 84100; 84134; 84484; 85025; 85027; 85610; 85730; 86140; 86850; 86900; 86901; 86923; 87040; 87077; 87086; 87088; 87186; 87636; 93005; 96361; 96365; 96375; 99285; A9270; G0378; J0613; J0690; J0692; J0696; J1335; J1815; J2405; J2704; J3370; J3590; J7030; J7050; J7120; P9016; P9047